=== PATIENT | female | born 1995 | race Hispanic/Latino ===

== ENCOUNTER 2020-03-31 13:44 | Emergency (ER) | payer SELFPAY ==
--- OUTSIDE RECORDS SUMMARY | 2020-03-31 13:46 | XMS REPORT | Summary of Care ---
:1995 Author Organization [facility] Address [address] [place] [address] Care Team Providers Name Role Phone Nell Donaldson [facility] Primary Care Provider Reason for Visit Reason Comments ULTRASOUND (Routine) Status Reason Specialty Diagnoses / Procedures Referred By Adrienne miller To Contact Contact Closed Maternal Diagnoses Hypothyroidism affecting in second trimester History of ventriculoperitoneal shunting Prerna Merino Procedures CONSULT MATERNAL MEDICINE ULTRASOUND Preferred Location: Alice Chisholm [facility] [address] [place] [address] Encounter Details Date Type Department Care Team Description 06/30/2019 Filling Operator Visit [facility] Women's Phan Barrios MD [address] [facility] [id number] [place], [place] [phone] Maternal Healthcare-Morris Kat Nicholas MD [address] [facility] [id number] [place], [place] [id number] hypothyroidism, [facility] Clinics 5, [facility] Usg Room antepartum, second [address] [place] [address] Allergies Active Allergy Reactions Severity Noted Date Comments Morphine Palpitations 08/17/2014 Qdmrpjlqzumbzya-Klfpydiij-Sg Swelling 01/15/2011 Sulfa (Sulfonamide Antibiotics) Rash 1 documented as of this encounter (statuses as of 06/30/2019) Medications Medication Sig Dispensed Refills Start Date End Date Status PNV 67-iron ps-folate Take 1 Each by 30 capsule 11 03/19/2019 Active no.1-dha (VITAFOL ULTRA) mouth daily. 29 mg iron- 1 mg-200 mg CapIndications: Supervision of high risk , antepartum levothyroxine 175 mcg Take 1 tablet 30 tablet 5 06/19/2019 Active tabletIndications: by mouth every Hypothyroidism affecting morning. in second trimester ranitidine 75 mg Take 1 tablet 60 tablet 0 06/23/2019 Active tabletIndications: by mouth 2 Reflux gastritis (two) times daily. 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 Overview: Dx at 2010- treat with synthroid 150 mcg Obstructive hydrocephalus 08/18/2014 Overview: Status post E COMMERCE SPECIALIST shunt placement S/P E COMMERCE SPECIALIST shunt 08/18/2014 Chronic lymphocytic thyroiditis 01/15/2011 Pure hypercholesterolemia 01/15/2011 Acquired acanthosis nigricans 01/15/2011 Estimated Date of Delivery Comments Yes 11/13/2019 Based on last menstr ual period of 02/06/2019 (Approximate) documented as of this encounter (statuses as of 06/30/2019) Resolved Problems Problem Noted Date Resolved Date with inconclusive viability, single or 11/1903/19/2019 unspecified fetus Obesity affecting in first trimester 11/10/2018 03/19/2019 Primary stabbing headache 01/25/2017 11/10/2018 care and examination of lactating mother 11/15/20 16 11/10/2018 Elevated blood pressure reading without diagnosis of 016 03/19/2019 hypertension Second degree perineal laceration 11/15/20162017 39 weeks gestation of 10/25/2016 11/15/20 16 Asthma affecting , antepartum 09/02/2016 1 01/16/2016 Overview: Mild on albuterol inhaler prn Trauma left toe, initial encounter 09/02/201611/15 Nervous system disease complicating in second 06/0111/15/2016 trimester Hypothyroidism affecting 06/20/201611/15 Obesity, Class I, BMI 30-34.9 08/17/2014 11/10/2018 Hypothyroidism 01/16/2011 08/18/2014 Overview: ICD10 Diagnosis Term Alterations Sewer Utility documented as of this encounter (statuses as of 06/30/2019) Immunizations Name Administration Dates Next Due Influenza Virus Vaccine Quad IM 3+ YRS 09/23/2016 documented as of this encounter Social History Tobacco Use Types Packs/Day Years Used Date Never Smoker Smokeless Tobacco: Never Used Alcohol Use Drinks/Week oz/Week Comments No 0 Standard drinks or equivalent 0.0 Estimated Date of Delivery Comments Yes 11/13/2019 Based on last menstr ual period of 02/06/2019 (Approximate) Sex Assigned at Date Recorded Not on file Job Start Date Occupation Industry Not on file Not on file Not on file Travel History Travel Start Travel End No recent travel history available. documented as of this encounter Last Filed Vital Signs Not on filedocumented in this encounter Plan of Treatment Date Type Specialty Care Team Description 07/15/2019 Routine Visit OB Satellites Risk, Ang-Rmchp-N p/High Health Maintenance Due Date Last Done Comments MENINGOCOCCAL B VACCINES (1 of 2007 2 - Risk Bexsero 2-dose series) HPV VACCINES (1 - Female 2012 3-dose series) DTaP,Tdap,and Td Vaccines (1 - 2016 Tdap) INFLUENZA VACCINE 08/01/2019 09/23/2016 CHLAMYDIA SCREENING 03/19/2020 03/19/2019, 11/10/2018, 03/27/2016 PAP SMEAR 11/10/2021 11/10/2018 MENINGOCOCCAL VACCINE Aged Out No longer eligible based on patient's age to complete this to pic PNEUMOCOCCAL 0-64 YEARS Aged Out No longe r eligible based COMBINED SERIES on patient's age to complete this to pic documented as of this encounter Results Not on filedocumented in this encounter Visit Diagnoses Diagnosis Maternal hypothyroidism, antepartum, sec ond trimester documented in this encounter Insurance Payer Benefit Plan / Subscriber ID Effective Phone Address T ype Group [facility] xxxxxxxxx 2019-[place]mi [address] Medic aid HEALTH CHOICE - HE[place] nt [id number] 1 MANAGED MEDICAID [place], [place]ID [phone] documented as of this encounter Advance Directives Type Date Recorded Patient Director Talent Explanati on Advance Directives and Living Will Power of Filing Clerk Name Relationship Healthcare Agent Communication Relationship Troy Ling Spouse Primary healthcare agent Marcy Carrillo Mother First [facility] healthcare 9 [phone] agent (Mobile)
--- OUTSIDE RECORDS SUMMARY | 2020-03-31 13:46 | XMS REPORT | Summary of Care ---
:1995 Author Name Nancy Trevino R.N. Address Unavailable Unavailable , Care Team Providers Name Role Phone GISELLE BANKS M.D. Unavailable Unavailable Nancy Trevino R.N. Unavailable Unavailable Giselle Banks MD Unavailable Unavailable NOT IN DICTIONARY Unavailable Unavailable RODRIGUEZ BURCIAGA MD Unavailable Unavailable Unavailable Unavailable Unavailable Functional Status Name Dates Details Functional status health issues are not documented Status: Name Dates Details Cognitive status health issues are not documented Status: Problems Name Dates Details Hypothyroidism (244.9, E03.9) Status: Ac tive state (V24.2, Z39.2) Status: Active Obesity (278.00, E66.9) Status: Active High risk for diabetes mellitus (V49.89, Z91.89) Status: Active Medications Name Dates Details Levothyroxine Sodium 100 MCG Oral Tablet TAKE 1 TABLET BY MOUTH DAILY DIRECTED . Quantity: 30 Refills: 0 GISELLE BANKS M.D. Start : 09-Jul-2018 Active Allergies and Adverse Reactions Name Dates Details morphine (Allergy) Status: Active sulfa (Allergy) Status: Active Past Medical History Name Dates Details History of asthma (V12.69, Z87.09) Statu s: Resolved Procedures Procedure Dates Details Procedures not documented Immunization Name Dates Details Immunizations not documented Family History Name Dates Details Family history of Calcium kidney stones (592.0, N20.0) Comments: Other Status: Active Name Dates Details Family history of malignant neoplasm (V16.9, Z80.9) Status: Active Name Dates Details Family history of hyperthyroidism (V18.19, Z83.49) Status: Active Family history of essential hypertension (V17.49, Z82.49) Status: Active Family history of lung cancer (V16.1, Z80.1) Status: Active Name Dates Details Family history of hypothyroidism (V18.19, Z83.49) Status: Active Name Dates Details Family history of type 2 diabetes mellitus (V18.0, Z83.3) Status: Active Name Dates Details Family history of type 2 diabetes mellitus (V18.0, Z83.3) Status: Active Name Dates Details Family history of type 2 diabetes mellitus (V18.0, Z83.3) Status: Active Family history of myocardial infarction (V17.3, Z82.49) Status: Active Social History Name Dates Details Unknown if ever smoked Vital Signs Date Test Result Details No Known Vitals to report Results Date Description Value Details Results not documented Plan of Care Name Dates Details Planned Observations Planned Goals not documented Planned Encounters Appointment; GISELLE BANKS M.D. On: 09-Mar-2019 15:4 0 Interventions Provided Discussion/SummaryGuideline Used: [facility] who suggested a higher dosage of levothyroxine due to recent lab work. PT requesting Dr. Banks to send RX. PT has not seen Dr. Banks since 2016. Informed PT that appointment will be needed in order to receive new RX. PT states she has no insurance, inquiring how much self-pay visit would cost. Transferred patient to APPT line. Intended Caller Action: Other: Speak with clinic staff Additional Information: Warm Transfer to [facility] Instructions Name Dates Details Instructions not documented Encounters Appointment; GISELLE BANKS M.D. On: 03-Mar-2017 15:0 0 Encounter Diagnosis: Problem not documented Appointment; GISELLE BANKS M.D. On: 14-Apr-2017 8:3 0 Encounter Diagnosis: Problem not documented Appointment; GISELLE BANKS M.D. On: 22-Jul-2018 13: 40 Encounter Diagnosis: Problem not documented
--- OUTSIDE RECORDS SUMMARY | 2020-03-31 13:47 | XMS REPORT | Summary of Care ---
:1995 Author Organization [facility] Address [address] [place] [address] Care Team Providers Name Role Phone Nell Donaldson [facility] Primary Care Provider Encounter Details Date Type Department Care Team Description 07/08/2019 Abstract [facility] Yesenia Lockhart, [address] [place] [address] [address] [facility] [phone] [place], [place] [address] [phone] Allergies Active Allergy Reactions Severity Noted Date Comments Morphine Palpitations 08/17/2014 Wnwhijuuneozwbz-Snxarfhwm-Ag Swelling 01/15/2011 Sulfa (Sulfonamide Antibiotics) Rash 1 documented as of this encounter (statuses as of 07/08/2019) Medications Medication Sig Dispensed Refills Start Date [...] as of this encounter (statuses as of 07/08/2019) Active Problems Problem Noted Date Hypothyroidism affecting [...] mcg Obstructive hydrocephalus 08/18/2014 Overview: Status post DOOR HANGER shunt placement S/P DOOR HANGER shunt 08/18/2014 Chronic lymphocytic thyroiditis 01/15/2011 Pure hypercholesterolemia 01/15/2011 Acquired acanthosis nigricans 01/15/2011 Estimated Date of Delivery Comments Yes 11/13/2019 Based on last menstr ual period of 02/06/2019 (Approximate) documented as of this encounter (statuses as of 07/08/2019) Resolved Problems Problem Noted Date Resolved Date [...] Hypothyroidism 01/16/2011 08/18/2014 Overview: ICD10 Diagnosis Term Crucible Packer Utility documented as of this encounter (statuses as of 07/08/2019) Immunizations Name Administration Dates Next Due Influenza [...] Description 07/15/2019 Routine Visit OB Satellites Risk, Pca-Azhyn-Qc/Hig h 08/11/2019 Physical Anthropologist Visit Maternal Medicine Health Maintenance Due Date Last Done Comments [...] Results Not on filedocumented in this encounter Insurance Payer Benefit Plan / Subscriber ID Effective Phone Address T ype Group Dates [employer] xxxxxxxxx 2019-Prese [address]OX Medic aid HEALTH CHOICE - HEALTH CHOICE nt [id number] 1 MANAGED MEDICAID [place], [place] MEDICAID [phone] documented as of this encounter Advance Directives Type Date Recorded Patient Postie Explanati on Advance Directives and Living Will Power of Sporting Goods Salesperson Name Relationship Healthcare Agent Communication Relationship Troy Ling Spouse Primary healthcare agent Marcy Carrillo Mother First alternate healthcare agent (Mobile)
--- OUTSIDE RECORDS SUMMARY | 2020-03-31 13:47 | XMS REPORT | Summary of Care ---
:1995 Author Organization [facility] Address [address] [place] [address] Care Team Providers Name Role Phone Nell Donaldson [facility] Primary Care Provider Reason for Visit Reason Comments Genetic Visit Maternity Services (Routine) Status Reason Specialty Diagnoses / Referred By Referred To Procedures Contact Contact Closed Pediatric Genetics Diagnoses Hypothyroidism affecting in second trimester Halle Merino Procedures CONSULT GENETICS Phan [address] [address] Encounter Details Date Type Department Care Team Description 06/30/2019 Office Visit [facility] Christina Barrios ypothyroidism, adult Genetics- Josselin Chisholm MD (Primary Dx) [facility] [address] [place] [address] Drive, [address] [place] [phone] Allergies Active Allergy Reactions Severity Noted Date Comments Morphine Palpitations 08/17/2014 Ptxgtgkhpntxldz-Kaquzzfcj-Ns Swelling 01/15/2011 Sulfa (Sulfonamide Antibiotics) Rash 1 documented as of this encounter (statuses as of 07/07/2019) Medications Medication Sig Dispensed Refills Start Date [...] as of this encounter (statuses as of 07/07/2019) Active Problems Problem Noted Date Hypothyroidism affecting [...] mcg Obstructive hydrocephalus 08/18/2014 Overview: Status post JUNIOR AUTOMATION ENGINEER shunt placement S/P JUNIOR AUTOMATION ENGINEER shunt 08/18/2014 Chronic lymphocytic thyroiditis 01/15/2011 Pure hypercholesterolemia 01/15/2011 Acquired acanthosis nigricans 01/15/2011 Estimated Date of Delivery Comments Yes 11/13/2019 Based on last menstr ual period of 02/06/2019 (Approximate) documented as of this encounter (statuses as of 07/07/2019) Resolved Problems Problem Noted Date Resolved Date [...] Hypothyroidism 01/16/2011 08/18/2014 Overview: ICD10 Diagnosis Term Manager Produce Utility documented as of this encounter (statuses as of 07/07/2019) Immunizations Name Administration Dates Next Due Influenza [...] Signs Not on filedocumented in this encounter Progress Notes Sofi Staples - 06/30/2019 8:00 AM CDT INITIAL GENETIC EVALUATION Patient: Carmelina Alicia Patient Number [id number] : 1995 Site/[facility]: [facility] 06/30/2019 Patient Address: [address] [place] [address] Referring Physician: LISA Quintanilla Angleton Present: Christina Barrios MD; Carmelina Alicia Reason for Referral: Maternal hypothyroidism DARLYN: 11/13/2019 Gestational Age: 20 weeks 3 days Language Czech Patient Care Secretary None Risk Assessment Overview: Disease/condition Risks Chromosome abnormality <656 based on maternal age Down syndrome based on first trimester screen Trisomy 18 12/9509 based on first trimester screen Open Neural Tube defects Negative based on MSAFP Background risk for defects 3% based on general population Cystic Fibrosis 12/13,500 based on ethnicity Hemoglobinopathies Increased based on ethnicity Family history See Genetic Counseling Risk Discussion below Exposures See Genetic Counseling Risk Discussion below Patient History: Patient Father of the Name: Carmelina Ling Age (patient age is at delivery) 22 23 Chronic health problems/ defects: Hypothyroid None 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 Genetic Counseling Risk Discussion Summary: ? Maternal Hypothyroidism: Ms. Alicia has hypothyroidism. Abnormal maternal thyroid function is associated with adverse outcomes. Many studies have proved that children born to motherswith hypothyroidism had a significantly risk of impairment in IQ scores, neuropsychological developmental and learning abilities. This risk applies to children born not only of untreated women, but also women with suboptimal supplementation. Additionally, women with hypothyroidism have decreased fertility, increased risk of miscarriage, gestational hypertension, anemia, placental abruption, and hemorrhage. Untreated maternal hypothyroidism can lead to , low weight, and respiratory distress in the . ? Exposure to Levothyroxine: Ms. Rios hypothyroidism is treated with Levothyroxine. Levothyroxine (Holcomb, Levoxine, Levothroid, Synthroid, Levoxyl) is used to treat goiter and thyroid deficiency states. In the Collaborative Project, there was no increased rate of congenital anomalies among 537 infants of women with levothyroxine or thyroid extract exposure during the first four lunar months of or among 1605 infants whose mothers took levothyroxine or thyroid extract at any time during . We emphasized the importance of continuing thyroxine replacement therapy due to the well- defined association between maternal hypothyroidism and impaired and development. ? Family History of Diabetes, Heart Disease and High Cholesterol: Ms. Rios father has high cholesterol and her mother has diabetes. She had a paternal uncle that of a myocardial infarction. Mr. Meier maternal grandmother has diabetes. We explained that diabetes, heart disease, and hypercholesterolemia follow a multifactorial pattern of inheritance. This means that both genes and environmental factors act together to cause diabetes, heart disease, and hypercholesterolemia. Type II diabetes occurs in 1-5% of the general population. Based on the family history, there is likely an increased risk for family members to develop type II diabetes, heart disease, and/or hypercholesterolemia at some time during their lives. The age of onset and severity may be variable. We counseled her that maintaining a good diet, exercising, and avoiding excess weight can help to prevent diabetes, but that any changes to her diet or exercise regimen during should first be reviewed with her doctor. There is no testing available for type II diabetes, heart disease, or hypercholesterolemia predisposition. Plan: Services Scheduled Level II Ultrasound The risks discussed were based on the information provided by the patient including review of the family history (attached), history, and ethnic background. The background risk of 3-5% for defects, mental retardation and genetic disease, many of which cannot be detected or predicted prenatally was given. The options of screening and diagnostic testing including the risks, benefits and limitations were discussed. The patients understanding of the medical issues was assessed by us, including potential barriers to understanding. We provided all necessary teaching. Questions were answered to the satisfaction of the patient, who demonstrated comprehension of the problem and our suggestions for management. Thank you for the opportunity to assist in the care of your patient, Christina Barrios MD Professor of Pediatrics and Genetics [facility] Rough Copy: July 02, 2019 Final Copy: July 02, 2019 Cc: Medical Records, Genetic Chart Counseling Time: I spent 80 minutes with the patient and greater than 50% of the time was spent assessing family history, counseling the patient, and coordinating medical care. I, Sofi Staples , am transcribing the hand written note from, Dr. Christina Barrios, who performed the services described here-in. Sofi Staples, July 02, 2019, 10:36 AM IChristina MD, personally performed the services described in this documentation , as transcribed by, Sofi Staples, based on my hand written note. I have edited and/or revised the note as appropriate, and it is both accurate and complete. Christina Barrios MD July 05, 2019, 10:59 AM documented in this encounter Plan of Treatment Date Type Specialty Care Team Description 07/15/2019 Routine Visit OB Satellites Risk, Xqs-Ofoek-Xe/Hig h 08/11/2019 Cattle Producers Visit Maternal Medicine Health Maintenance Due Date Last Done Comments MENINGOCOCCAL B VACCINES ( of 2007 2 - Risk Bexsero 2-dose [...] filedocumented in this encounter Visit Diagnoses Diagnosis Hypothyroidism, adult - Primary Other specified acquired hypothyroidism documented in this encounter Insurance Payer Benefit Plan / Subscriber ID Effective Phone Address T ype Group [facility] xxxxxxxxx 2019-Prese [address]. BOX Medic aid HEALTH CHOICE - HEALTH CHOICE nt [id number] 1 MANAGED MEDICAID [place], [place] MED[place]ID [phone] documented as of this encounter Advance Directives Type Date Recorded Patient Club Manager Explanati on Advance Directives and Living Will Power of Street Light Inspector Name Relationship Healthcare Agent Communication Relationship Troy Ling Spouse Primary healthcare agent Marcy Carrillo Mother First alternate healthcare agent (Mobile)
--- OUTSIDE RECORDS SUMMARY | 2020-03-31 13:47 | XMS REPORT | Summary of Care ---
:1995 Author Organization [facility] [place] Address [address] [place] [address] Care Team Providers Name Role Phone Ann Lacey Primary Care Provider Reason for Visit Reason Comments Care Encounter Details Date Type Department Care Team Description 07/15/2019 Routine [facility]CHP- David Lacey y Ann [address] [place] [address] Hypothyroidism affecting in se cond trimester (Primary Dx); Visit Abel Burkett-Rmchp-Np/High History of ventriculoperitoneal shunting ; [address] [facility] High risk , antepar mariela; [place], [place] Obesity affecti ng , antepartum [phone] Allergies Active Allergy Reactions Severity Noted Date Comments Morphine Palpitations 08/17/2014 Tjkmtapcothdwnq-Ocfpwofiz-Tj Swelling 01/15/2011 Sulfa (Sulfonamide Antibiotics) Rash 1 documented as of this encounter (statuses as of 07/15/2019) Medications Medication Sig Dispensed Refills Start Date [...] as of this encounter (statuses as of 07/15/2019) Active Problems Problem Noted Date Hypothyroidism affecting [...] mcg Obstructive hydrocephalus 08/18/2014 Overview: Status post FIELD CANE SCALE CLERK shunt placement S/P FIELD CANE SCALE CLERK shunt 08/18/2014 Chronic lymphocytic thyroiditis 01/15/2011 Pure hypercholesterolemia 01/15/2011 Acquired acanthosis nigricans 01/15/2011 Estimated Date of Delivery Comments Yes 11/13/2019 Based on last menstr ual period of 02/06/2019 (Approximate) documented as of this encounter (statuses as of 07/15/2019) Resolved Problems Problem Noted Date Resolved Date [...] Hypothyroidism 01/16/2011 08/18/2014 Overview: ICD10 Diagnosis Term Diesel 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 documented as of this encounter (statuses as of 07/15/2019) Immunizations Name Administration Dates Next Due Influenza [...] of this encounter Last Filed Vital Signs Vital Sign Reading Time Taken Comments Blood Pressure 138/78 07/15/2019 2:45 PM CDT Pulse 95 07/15/2019 2:45 PM CDT Temperature 37 C (98.6 F) 07/15/2019 2:45 PM CDT Respiratory Rate 16 07/15/2019 2:45 PM CDT Oxygen Saturation - - Inhaled Oxygen Concentration - - Weight 109.9 kg (242 lb 4 oz) 07/15/2019 2:45 PM CDT Height 165.1 cm (5' 5") 07/15/2019 2:45 PM CDT Body Mass Index 40.31 07/15/2019 2:45 PM CDT documented in this encounter Progress Notes Mary Carmen Lacey - 07/15/2019 3:00 PM CDT Chief complaint: Chief Complaint Patient presents with Care HPI Carmelina Alicia is a 24 year old HF who is 22w5d with IUP. Her Estimated Date of Delivery: 11/13/19 by LMP. Denies headache,n/v, sob, cp, bleeding,lof and ctxs. Has +FM. Hx of Hypothyroidism and currently on Levothyroxine 175mcg daily. Reports compliance. Histories OB History Para Term AB Living 3 1 1 1 1 SAB TAB Ectopic Multiple Live Births 1 0 1 # Outcome Date GA Lbr Keenan/2nd Weight Sex Delivery Anes PTL Lv 3 Current 2 SAB 11/22/18 8w5d 1 Term 10/26/16 39w1d 8 lb 12.4 oz (3.98 kg) M VAGINAL EPI LOW Comments: Maternal Age: 19; :1; Parity:1 Mother's Blood Type:O pos Baby's Blood Type:O pos, RADHA NA Maternal Serological Test:normal Maternal Group B Strep Screening:negative; Adequate Treatment:not applicable Complications:yes - maternal hx of asthma, hypothyroidism and hydrocephalous s/p FIELD CANE SCALE CLERK shunt Labor Complications:no OAE: Failed both ears; 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 mg Past Medical History: Diagnosis Date Acanthosis nigricans Asthma about 9 yrs old Autoimmune disorder 2002 Hypothyroidism Family history of diabetes mellitus 11/10/2018 Hydrocephalus Hypothyroidism 2017 Thyroid disease FIELD CANE SCALE CLERK (ventriculoperitoneal) shunt status Family History Problem Relation Age of Onset Cancer Maternal Grandfather Cancer Paternal Grandmother Cancer Paternal Grandfather Heart Brother Thyroid Maternal Grandmother Thyroid Other Maternal first cousin Diabetes Father Hypertension Father Hypertension Father Diabetes Mother Family Status Relation Name Status MGFa PGMo PGFa Bro Alive MGMo (Not Specified) OTHER (Not Specified) Fa Alive Fa (Not Specified) Mo Alive Bro Alive Past Surgical History: Procedure Laterality Date CEREBROSPINAL FLUID SHUNT INSERTION 2001 Acute hydrocephalus - done at [facility] Social History Socioeconomic History Marital status: Spouse name: Not on file Number of children: Not on file Years of education: Not on file Highest education level: Not on file Occupational History Not on file Social Needs Financial resource strain: Not on file Food insecurity: Worry: Not on file Inability: Not on file Transportation needs: Medical: Not on file Non-medical: Not on file Tobacco Use Smoking status: Never Smoker Smokeless tobacco: Never Used Substance and Sexual Activity Alcohol use: No Alcohol/week: 0.0 oz Drug use: No Sexual activity: Yes Partners: Male control/protection: None Comment: last sexual iintercourse 03/16/2019 Lifestyle Physical activity: Days per week: Not on file Minutes per session: Not on file Stress: Not on file Relationships Social connections: Talks on phone: Not on file Gets together: Not on file Attends advent service: Not on file Active member of club or organization: Not on file Attends meetings of clubs or organizations: Not on file Relationship status: Not on file Intimate partner violence: Fear of current or ex partner: Not on file Emotionally abused: Not on file Physically abused: Not on file Forced sexual activity: Not on file Other Topics Concern Not on file Social History Narrative Patient lives with and child. Patient denies any cats. Patient feels safe at home. Social History Substance and Sexual Activity Sexual Activity Yes Partners: Male control/protection: None Comment: last sexual iintercourse 03/16/2019 Labs Labs are pending. Radiology No new radiology. Allergies Carmelina is allergic to morphine; robitussin allergy-cough [omwvyeitqwpitpz-cvngluahb-ey]; and sulfa (sulfonamide antibiotics). Medications Carmelina has a current medication list which includes the following prescription(s): ranitidine, levothyroxine, and pnv 67-iron ps-folate no.1-dha. Review of Systems See HPI BP 138/78 (BP Location: Right arm, Patient Position: Sitting, BP CUFF SIZE: Adult Medium) | Pulse 95 | Temp 37 C (98.6 F) (Oral) | Resp 16 | Ht 5' 5" (1.651 m) | Wt 242 lb 4 oz (109.9 kg) | LMP 02/06/2019 (Approximate) | BMI 40.31 kg/m Pregravid BMI: 38.3 Physical Exam CONSTITUTIONAL: no apparent distress, appearing age-appropriate. GASTROINTESTINAL: abdomen soft, nontender, . NEUROLOGICAL/PSYCHIATRIC: alert, awake, and oriented x 3. Normal mood and affect. EXTREMITIES: No calf tenderness bilaterally.no pitting edema bilaterally. Musculoskeletal: no clubbing, cyanosis or edema, peripheral pulses 2+ in all extremities Assessment/Plan at 22w5d Hypothyroidism affecting in second trimester (primary encounter diagnosis) Comment: on Levothyroxine 175mcg daily Plan: THYROID STIMULATING HORMONE, FREE T3, FREE T4 F/u growth q4wks History of ventriculoperitoneal shunting Comment: denies s/s Plan: exp mtmg High risk , antepartum Comment: 22w5d NT,AFP neg Plan: routine care Obesity affecting , antepartum Comment: twg goal discussed Plan: monitor weight gain Warnings and poc discussed RTC 3wk Mary Carmen Lacey, [facility]- #[id number] This visit did not involve counseling and coordination that comprised more than 50% of the visit time. documented in this encounter Plan of Treatment Date Type Specialty Care Team Description 08/11/2019 Shipping And Receiving Weigher Visit Maternal Medicine Name Type Priority Associated Diagnoses Date/Ti me THYROID STIMULATING LAB Routine Hypothyroidism affect ing 07/15/2019 2:47 PM HORMONE in second CDT trimester FREE T3 LAB Routine Hypothyroidism affecting 2:47 PM in second CDT trimester FREE T4 LAB Routine Hypothyroidism affecting 2:47 PM in second CDT trimester Health Maintenance Due Date Last Done Comments MENINGOCOCCAL B VACCINES (1 of 2007 2 - Risk Bexsero 2-dose series) HPV VACCINES (1 - Female 2012 3-dose series) DTaP,Tdap,and Td Vaccines (1 - 2016 Tdap) INFLUENZA VACCINE (#1) 2019 09/23/2016 CHLAMYDIA SCREENING 03/19/2020 03/19/2019, 11/10/2018, 03/27/2016 PAP SMEAR 11/10/2021 11/10/2018 MENINGOCOCCAL VACCINE Aged Out No longer eligible based on patient's age to complete this to pic PNEUMOCOCCAL 0-64 YEARS Aged Out No longe r eligible based COMBINED SERIES on patient's age to complete this to pic documented as of this encounter Results Not on filedocumented in this encounter Visit Diagnoses Diagnosis Hypothyroidism affecting in se cond trimester - Primary History of ventriculoperitoneal shunting High risk , antepartum Obesity affecting , antepartum documented in this encounter Insurance Payer Benefit Plan / Subscriber ID Effective Phone Address T ype Group [facility] xxxxxxxxx 2019-Prese P.O. BOX Medic aid HEALTH CHOICE - HEALTH CHOICE nt [id number] 1 MANAGED MEDICAID [place], [place]ID [phone] documented as of this encounter Advance Directives Type Date Recorded Patient Business Analytics Manager Explanati on Advance Directives and Living Will Power of Certified Orthotist Name Relationship Healthcare Agent Communication Relationship Troy Ling Spouse Primary healthcare agent Marcy Carrillo Mother First alternate healthcare 9 [phone] agent (Mobile)
--- OUTSIDE RECORDS SUMMARY | 2020-03-31 13:47 | XMS REPORT | Summary of Care ---
:1995 Author Organization [facility] Address [address] [place] [address] Care Team Providers Name Role Phone Nell Donaldson [facility] Primary Care Provider Reason for Visit Reason Comments Genetic Visit Maternity Services (Routine) Status Reason Specialty Diagnoses / Referred By Referred To Procedures Contact Contact Closed Pediatric Genetics Diagnoses Hypothyroidism affecting in second trimester Halle Merino Procedures CONSULT GENETICS Phan [address] [address] Encounter Details Date Type Department Care Team Description 06/30/2019 Office Visit [facility] Pediatric Christina Barrios ypothyroidism, adult Genetics- Josselin Chisholm MD (Primary Dx) [facility] Clinics [address] [place] [address] Drive, 3[address] [place] [phone] Allergies Active Allergy Reactions Severity Noted Date Comments Morphine Palpitations 08/17/2014 Ftjobbdfyaycyew-Drohhcldb-Rg Swelling 01/15/2011 Sulfa (Sulfonamide Antibiotics) Rash 1 [...] mcg Obstructive hydrocephalus 08/18/2014 Overview: Status post ACETONE BUTTON PASTER shunt placement S/P ACETONE BUTTON PASTER shunt 08/18/2014 Chronic lymphocytic thyroiditis 01/15/2011 Pure [...] Hypothyroidism 01/16/2011 08/18/2014 Overview: ICD10 Diagnosis Term Lockstitch Waistband Setter Utility documented as of this encounter (statuses [...] GENETIC EVALUATION Patient: Carmelina Alicia Patient Number [id number] : 1995 Site/[place]: [facility] 06/30/2019 Patient Address: [address] [place] [address] Referring Physician: LISA Quintanilla Angleton Present: Christina Barrios MD; Carmelina Alicia Reason for Referral: Maternal hypothyroidism DARLYN: 11/13/2019 Gestational Age: 20 weeks 3 days Language Bulgarian Slubber Runner None Risk Assessment Overview: Disease/condition Risks Chromosome [...] health problems/ defects: Hypothyroid None 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 Levothyroxine ([place], Levoxine, Levothroid, Synthroid, Levoxyl) is used to [...] Barrios MD Professor of Pediatrics and Genetics [facility] Rough Copy: July 02, 2019 Final Copy: [...] Description 07/15/2019 Routine Visit OB Satellites Risk, Hni-Hhwrb-Pv/Hig h 08/11/2019 Adult Education Instructor Visit Maternal Medicine Health Maintenance Due Date [...] ID Effective Phone Address T ype Group [facility] xxxxxxxxx 2019-Prese P.O. BOX Medic aid HEALTH CHOICE - HEALTH CHOICE nt [id number] 1 MANAGED MEDICAID [place], [place] MED[place]ID [phone] documented as of this encounter Advance Directives Type Date Recorded Patient Marketing Account Executive Explanati on Advance Directives and Living Will Power of Court Manager Name Relationship Healthcare Agent Communication Relationship Troy Ling Spouse Primary healthcare agent Marcy Carrillo Mother First alternate healthcare agent (Mobile)
--- OUTSIDE RECORDS SUMMARY | 2020-03-31 13:48 | XMS REPORT | Summary of Care ---
:1995 Author Organization [facility] Address [address] [place] [address] Care Team Providers Name Role Phone Ann Lacey Primary Care Provider Reason for Visit Reason Comments Care Encounter Details Date Type Department Care Team Description 07/15/2019 Routine [facility] RMCHP- David Lacey y Ann [address] [place] [address] Hypothyroidism affecting in se cond trimester (Primary Dx); Visit Abel Burkett-Rmchp-Np/High History of ventriculoperitoneal shunting ; [address] [facility] High risk , antepar mariela; [place], [place] Obesity affecti ng , antepartum [phone] Allergies Active Allergy Reactions Severity Noted Date Comments Morphine Palpitations 08/17/2014 Fwuanruugiedhve-Qtimkbxbk-Jm Swelling 01/15/2011 Sulfa (Sulfonamide Antibiotics) Rash 1 [...] mcg Obstructive hydrocephalus 08/18/2014 Overview: Status post SHOE CEMENTER shunt placement S/P SHOE CEMENTER shunt 08/18/2014 Chronic lymphocytic thyroiditis 01/15/2011 Pure [...] Hypothyroidism 01/16/2011 08/18/2014 Overview: ICD10 Diagnosis Term Yard Hostler Utility documented as of this encounter (statuses [...] hx of asthma, hypothyroidism and hydrocephalous s/p SHOE CEMENTER shunt Labor Complications:no OAE: Failed both ears; 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 mg Past Medical History: Diagnosis Date Acanthosis nigricans Asthma about 9 yrs old Autoimmune disorder 2002 Hypothyroidism Family history of diabetes mellitus 11/10/2018 Hydrocephalus Hypothyroidism 2017 Thyroid disease SHOE CEMENTER (ventriculoperitoneal) shunt status Family History Problem Relation [...] INSERTION 2001 Acute hydrocephalus - done at [facility] Social History Socioeconomic History Marital status: [...] file Gets together: Not on file Attends christianity service: Not on file Active member of [...] Carmelina is allergic to morphine; robitussin allergy-cough [ieuzqqqcinfybku-fzsfqfwzq-ve]; and sulfa (sulfonamide antibiotics). Medications Carmelina has [...] poc discussed RTC 3wk Mary Carmen Lacey, [facility]- #[id number] This visit did not involve counseling and coordination that comprised more than 50% of the visit time. documented in this encounter Plan of Treatment Date Type Specialty Care Team Description 08/05/2019 Routine Visit OB Satellites Abel WatkinsDwm-Qgpvn-Nr/Hig h 08/11/2019 School Guard Visit Maternal Medicine Name Type Priority Associated [...] ID Effective Phone Address T ype Group [facility] xxxxxxxxx 2019-Prese P.O. BOX Medic aid HEALTH CHOICE - HEALTH CHOICE nt [phone] 1 MANAGED MEDICAID [place], [place] [phone] documented as of this encounter Advance Directives Type Date Recorded Patient Ramp Attendant Explanati on Advance Directives and Living Will Power of Data Entry Email Processor Name Relationship Healthcare Agent Communication Relationship Troy Ling Spouse Primary healthcare agent Marcy Carrillo Mother First [facility] healthcare 9 [phone] agent (Mobile)
--- OUTSIDE RECORDS SUMMARY | 2020-03-31 13:48 | XMS REPORT | Summary of Care ---
:1995 Author Organization [facility] Address [address] [place] [address] Care Team Providers Name Role Phone Ann Lacey Primary Care Provider Reason for Visit Reason Comments Abdominal Pain 25 wks Encounter Details Date Type Department Care Team Description 07/29/2019 Nurse Triage [facility] Tong Smith RN Abdominal Pain ([address] wks pregnan t) [place] [phone] Allergies Active Allergy Reactions Severity Noted Date Comments Morphine Palpitations 08/17/2014 Wureoaqmhkfviut-Gyqbyctww-Kn Swelling 01/15/2011 Sulfa (Sulfonamide Antibiotics) Rash 1 documented as of this encounter (statuses as of 07/30/2019) Medications Medication Sig Dispensed Refills Start Date [...] as of this encounter (statuses as of 07/30/2019) Active Problems Problem Noted Date Hypothyroidism affecting [...] mcg Obstructive hydrocephalus 08/18/2014 Overview: Status post RETAIL ASSOCIATE shunt placement S/P RETAIL ASSOCIATE shunt 08/18/2014 Chronic lymphocytic thyroiditis 01/15/2011 Pure hypercholesterolemia 01/15/2011 Acquired acanthosis nigricans 01/15/2011 Estimated Date of Delivery Comments Yes 11/13/2019 Based on last menstr ual period of 02/06/2019 (Approximate) documented as of this encounter (statuses as of 07/30/2019) Resolved Problems Problem Noted Date Resolved Date [...] Hypothyroidism 01/16/2011 08/18/2014 Overview: ICD10 Diagnosis Term Camera Systems Engineer Utility documented as of this encounter (statuses as of 07/30/2019) Immunizations Name Administration Dates Next Due Influenza [...] Team Description 08/05/2019 Routine Visit OB Satellites Risk, Gdu-Lhudm-Mn/Hig h 08/11/2019 Dairy Chemist Visit Maternal Medicine Health Maintenance Due Date [...] aid HEALTH CHOICE - HEALTH CHOICE nt [id number] 1 MANAGED MEDICAID [place], [place] MEDICAID [phone] documented as of this encounter Advance Directives Type Date Recorded Patient Volcanologist Explanati on Advance Directives and Living Will Power of Clinical Support Nurse Name Relationship Healthcare Agent Communication Relationship Troy Ling Spouse Primary healthcare agent Marcy Carrillo Mother First alternate healthcare agent (Mobile) ([place])
--- OUTSIDE RECORDS SUMMARY | 2020-03-31 13:48 | XMS REPORT | Summary of Care ---
:1995 Author Organization [facility] Address [address] [place] [address] Care Team Providers Name Role Phone Ann Lacey Primary Care Provider Reason for Visit Reason Comments Rx Concern/Question Encounter Details Date Type Department Care Team Description 08/03[facility]2019 [facility]-Np/High [address] [place] [phone] Allergies Active Allergy Reactions Severity Noted Date Comments Morphine Palpitations 08/17/2014 Tfieejjydxrkhya-Wfancydcv-Kf Swelling 01/15/2011 Sulfa (Sulfonamide Antibiotics) Rash 1 documented as of this encounter (statuses as of 08/03/2019) Medications Medication Sig Dispensed Refills Start Date [...] as of this encounter (statuses as of 08/03/2019) Active Problems Problem Noted Date Hypothyroidism affecting [...] mcg Obstructive hydrocephalus 08/18/2014 Overview: Status post WAX BALL MOLDER shunt placement S/P WAX BALL MOLDER shunt 08/18/2014 Chronic lymphocytic thyroiditis 01/15/2011 Pure hypercholesterolemia 01/15/2011 Acquired acanthosis nigricans 01/15/2011 Estimated Date of Delivery Comments Yes 11/13/2019 Based on last menstr ual period of 02/06/2019 (Approximate) documented as of this encounter (statuses as of 08/03/2019) Resolved Problems Problem Noted Date Resolved Date [...] Hypothyroidism 01/16/2011 08/18/2014 Overview: ICD10 Diagnosis Term Marine 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 xxxxxxxxx 2019-Prese P.O. BOX Medic aid HEALTH CHOICE - HEALTH CHOICE nt [id number] 1 MANAGED MEDICAID [place], [place] [phone] documented as of this encounter Advance Directives Type Date Recorded Patient Emt Dispatcher Explanati on Advance Directives and Living Will Power of Assembler For Puller Over Machine Name Relationship Healthcare Agent Communication Relationship Troy Ling Spouse Primary healthcare agent Marcy Gerardo Mother First alternate healthcare agent (Mobile)
--- OUTSIDE RECORDS SUMMARY | 2020-03-31 13:48 | XMS REPORT | Summary of Care ---
:1995 Author Organization [facility] [[email or web address] - [facility] Address [address] [place] [address] Care Team Providers Name Role Phone Ann Lacey Primary Care Provider Encounter Details Date Type Department Care Team Description 07/15/2019 Orders Only [facility] [[email or web address]] Doctor Unassigned, No [address] [facility] [place] [address] [address] [place] [address] Allergies Active Allergy Reactions Severity Noted Date Comments Morphine Palpitations 08/17/2014 Bkirkdztjniidst-Rrdqvrcde-Fw Swelling 01/15/2011 Sulfa (Sulfonamide Antibiotics) Rash 1 documented as of this encounter (statuses as of 07/16/2019) Medications Medication Sig Dispensed Refills Start Date [...] as of this encounter (statuses as of 07/16/2019) Active Problems Problem Noted Date Hypothyroidism affecting [...] 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 Overview: Dx at 2011- treat with synthroid 150 mcg Obstructive hydrocephalus 08/18/2014 Overview: Status post REMITTANCE CLERK shunt placement S/P REMITTANCE CLERK shunt 08/18/2014 Chronic lymphocytic thyroiditis 01/15/2011 Pure hypercholesterolemia 01/15/2011 Acquired acanthosis nigricans 01/15/2011 Estimated Date of Delivery Comments Yes 11/13/2019 Based on last menstr ual period of 02/06/2019 (Approximate) documented as of this encounter (statuses as of 07/16/2019) Resolved Problems Problem Noted Date Resolved Date [...] Hypothyroidism 01/16/2011 08/18/2014 Overview: ICD10 Diagnosis Term Glove Turner And Former Utility documented as of this encounter (statuses as of 07/16/2019) Immunizations Name Administration Dates Next Due Influenza [...] Description 08/05/2019 Routine Visit OB Satellites Risk, Pif-Fosxn-Gd/Hig h 08/11/2019 Beam Warper Visit Maternal Medicine Health Maintenance Due Date [...] to pic documented as of this encounter Procedures Procedure Name Priority Date/Time Associated Diagnosis Comme nts PATIENT QUESTIONNAIRE Routine 07/15/2019 12:01 AM CDT documented in this encounter Results Not on filedocumented in this encounter Insurance Payer Benefit Plan / Subscriber ID Effective Phone Address T e Group Dates [facility] xxxxxxxxx 2019-Prese P.O. BOX Medic aid HEALTH CHOICE - HEALTH CHOICE nt [id number] 1 MANAGED MEDICAID [place], [place] MED[place]ID [phone] documented as of this encounter Advance Directives Type Date Recorded Patient Dairy Specialist Explanati on Advance Directives and Living Will Power of Meat Lugger Name Relationship Healthcare Agent Communication Relationship Troy Ling Spouse Primary healthcare agent Marcy Carrillo Mother First alternate healthcare agent (Kfvzxo) ([place])
--- OUTSIDE RECORDS SUMMARY | 2020-03-31 13:48 | XMS REPORT | Summary of Care ---
:1997 Author Organization [facility] Address [address] [place] [address] Care Team Providers Name Role Phone Ann Lacey Primary Care Provider Reason for Visit Reason Comments Overdose Levothyroxine Encounter Details Date Type Department Care Team Description 07/17/2019 Nurse Triage [facility] Mira Perez, Overdose [address] [place] [address] RN (Levothyroxine ) [place] [address] [place] [address] [facility] [id number] [place] [id number] Allergies Active Allergy Reactions Severity Noted Date Comments Morphine Palpitations 08/17/2014 Lkesmygvbdxpoyg-Dsdrdnrlg-Nq Swelling 01/15/2011 Sulfa (Sulfonamide Antibiotics) Rash 1 documented as of this encounter (statuses as of 07/17/2019) Medications Medication Sig Dispensed Refills Start Date [...] as of this encounter (statuses as of 07/17/2019) Active Problems Problem Noted Date Hypothyroidism affecting [...] mcg Obstructive hydrocephalus 08/18/2014 Overview: Status post EXTRACT MIXER shunt placement S/P EXTRACT MIXER shunt 08/18/2014 Chronic lymphocytic thyroiditis 01/15/2011 Pure hypercholesterolemia 01/15/2011 Acquired acanthosis nigricans 01/15/2011 Estimated Date of Delivery Comments Yes 11/13/2019 Based on last menstr ual period of 02/06/2019 (Approximate) documented as of this encounter (statuses as of 07/17/2019) Resolved Problems Problem Noted Date Resolved Date [...] Hypothyroidism 01/16/2011 08/18/2014 Overview: ICD10 Diagnosis Term Service Unit Operator Oil Well Utility documented as of this encounter (statuses as of 07/17/2019) Immunizations Name Administration Dates Next Due Influenza [...] Description 08/05/2019 Routine Visit OB Satellites Risk, Fch-Znyzx-Mn/Hig h 08/11/2019 Stamping Die Maker Bench Visit Maternal Medicine Health Maintenance Due Date [...] aid HEALTH CHOICE - [place] nt [id number] 1 MANAGED MEDICAID [place], [place] [phone] documented as of this encounter Advance Directives Type Date Recorded Patient Glue Jointer Feeder Explanati on Advance Directives and Living Will Power of Absorption Plant Operator Name Relationship Healthcare Agent Communication Relationship Troy Ling Spouse Primary healthcare agent Marcy Carrillo Mother First alternate healthcare agent ([place]) ([employer])
--- OUTSIDE RECORDS SUMMARY | 2020-03-31 13:48 | XMS REPORT | Summary of Care ---
:1995 Author Organization [facility] Address [address] [place] [address] Care Team Providers Name Role Phone Ann Lacey Primary Care Provider Reason for Visit Reason Comments Care Encounter Details Date Type Department Care Team Description 07/15/2019 Routine [facility]- David Lacey y Ann [address] [place] [address] Hypothyroidism affecting in se cond trimester (Primary Dx); Visit Abel Burkett-Rmchp-Np/High History of ventriculoperitoneal shunting ; [address] [facility] High risk , antepar mariela; [place], [place] Obesity affecti ng , antepartum [id number] Allergies Active Allergy Reactions Severity Noted Date Comments Morphine Palpitations 08/17/2014 Qmgknmxzbesowez-Dlpvejzjg-Vw Swelling 01/15/2011 Sulfa (Sulfonamide Antibiotics) Rash 1 [...] mcg Obstructive hydrocephalus 08/18/2014 Overview: Status post PROCESS ENGINEERING INTERN shunt placement S/P PROCESS ENGINEERING INTERN shunt 08/18/2014 Chronic lymphocytic thyroiditis 01/15/2011 Pure [...] Hypothyroidism 01/16/2011 08/18/2014 Overview: ICD10 Diagnosis Term Nuclear Medical Technologist Utility documented as of this encounter (statuses [...] hx of asthma, hypothyroidism and hydrocephalous s/p PROCESS ENGINEERING INTERN shunt Labor Complications:no OAE: Failed both ears; 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 mg Past Medical History: Diagnosis Date Acanthosis nigricans Asthma about 9 yrs old Autoimmune disorder 2002 Hypothyroidism Family history of diabetes mellitus 11/10/2018 Hydrocephalus Hypothyroidism 2017 Thyroid disease PROCESS ENGINEERING INTERN (ventriculoperitoneal) shunt status Family History Problem Relation [...] INSERTION 2001 Acute hydrocephalus - done at [facility] Social History Socioeconomic History Marital status: [...] file Gets together: Not on file Attends islam service: Not on file Active member of [...] Carmelina is allergic to morphine; robitussin allergy-cough [blhjxqwvlyjdrbt-tluxoiidx-jm]; and sulfa (sulfonamide antibiotics). Medications Carmelina has [...] poc discussed RTC 3wk Mary Carmen Lacey, [id number] This visit did not involve counseling and coordination that comprised more than 50% of the visit time. documented in this encounter Plan of Treatment Date Type Specialty Care Team Description 08/05/2019 Routine Visit OB Satellites Abel WatkinsAhe-Cvpag-Km/Hig h 08/11/2019 Bowling Or Skating Front Desk Clerk Visit Maternal Medicine Name Type Priority Associated [...] ID Effective Phone Address T ype Group [facility] xxxxxxxxx 2019-Prese P.O. BOX Medic aid HEALTH CHOICE - HEALTH CHOICE nt [id number] 1 MANAGED MEDICAID [place], [place] [phone] documented as of this encounter Advance Directives Type Date Recorded Patient Banquet Line Cook Explanati on Advance Directives and Living Will Power of Executive Office Manager Name Relationship Healthcare Agent Communication Relationship Troy Ling Spouse Primary healthcare agent Marcy Carrillo Mother First [facility] healthcare agent (Mobile)
--- OUTSIDE RECORDS SUMMARY | 2020-03-31 13:49 | XMS REPORT | Summary of Care ---
:1997 Author Organization [facility] Address [address] [place] [address] Care Team Providers Name Role Phone Ann Lacey Primary Care Provider Encounter Details Date Type Department Care Team Description 08/20/2019 Orders Only [facility] Doctor Unassigned, [address] [facility] [place] [address] [address] [place] [address] Allergies Active Allergy Reactions Severity Noted Date Comments Morphine Palpitations 08/17/2014 Msfolwjdikruzzo-Ojuuoabun-Ch Swelling 01/15/2011 Sulfa (Sulfonamide Antibiotics) Rash 1 documented as of this encounter (statuses as of 08/20/2019) Medications Medication Sig Dispensed Refills Start Date [...] as of this encounter (statuses as of 08/20/2019) Active Problems Problem Noted Date Hypothyroidism affecting [...] mcg Obstructive hydrocephalus 08/18/2014 Overview: Status post RESISTANCE BRAZER shunt placement S/P RESISTANCE BRAZER shunt 08/18/2014 Chronic lymphocytic thyroiditis 01/15/2011 Pure hypercholesterolemia 01/15/2011 Acquired acanthosis nigricans 01/15/2011 Estimated Date of Delivery Comments Yes 11/13/2019 Based on last menstr ual period of 02/06/2019 (Approximate) documented as of this encounter (statuses as of 08/20/2019) Resolved Problems Problem Noted Date Resolved Date [...] Hypothyroidism 01/16/2011 08/18/2014 Overview: ICD10 Diagnosis Term Echocardiography Technologist Utility documented as of this encounter (statuses as of 08/20/2019) Immunizations Name Administration Dates Next Due Influenza [...] Treatment Date Type Specialty Care Team Description 08/26/2019 Routine Visit OB Satellites Risk, Ang-Rmchp-N p/High [...] Name Priority Date/Time Associated Diagnosis Comme nts CONSENT/REFUSAL FOR Routine 08/20/2019 1:32 AM CDT DIAGNOSIS AND TREATMENT documented in this encounter Results Not on filedocumented in this encounter Insurance Payer Benefit Plan / Subscriber ID Effective Phone Address T ype Group Dates [facility] xxxxxxxxx 2019-Prese P.O. BOX Medic aid HEALTH CHOICE - HEALTH CHOICE nt [id number] 1 MANAGED MEDICAID [place], [place]ID [phone] documented as of this encounter Advance Directives Type Date Recorded Patient Risk Management Internship Explanati on Advance Directives and Living Will Power of Brick Setter Name Relationship Healthcare Agent Communication Relationship Troy Ling Spouse Primary healthcare agent Marcy Carrillo Mother First alternate healthcare agent (Mobile)
--- OUTSIDE RECORDS SUMMARY | 2020-03-31 13:49 | XMS REPORT | Summary of Care ---
:1997 Author Organization [facility] Address [address] [place] [address] Care Team Providers Name Role Phone Ann Lacey Primary Care Provider Encounter Details Date Type Department Care Team Description 08/13/2019 Abstract [facility] Yesenia Lockhart C, [address] [place] [address] [address] [facility] [phone] [place], [place] [address] [phone] Allergies Active Allergy Reactions Severity Noted Date Comments Morphine Palpitations 08/17/2014 Athhakfyirhnbxg-Natkianoj-Wy Swelling 01/15/2011 Sulfa (Sulfonamide Antibiotics) Rash 1 documented as of this encounter (statuses as of 08/13/2019) Medications Medication Sig Dispensed Refills Start Date [...] as of this encounter (statuses as of 08/13/2019) Active Problems Problem Noted Date Hypothyroidism affecting [...] mcg Obstructive hydrocephalus 08/18/2014 Overview: Status post HAND STAPLER shunt placement S/P HAND STAPLER shunt 08/18/2014 Chronic lymphocytic thyroiditis 01/15/2011 Pure hypercholesterolemia 01/15/2011 Acquired acanthosis nigricans 01/15/2011 Estimated Date of Delivery Comments Yes 11/13/2019 Based on last menstr ual period of 02/06/2019 (Approximate) documented as of this encounter (statuses as of 08/13/2019) Resolved Problems Problem Noted Date Resolved Date [...] Hypothyroidism 01/16/2011 08/18/2014 Overview: ICD10 Diagnosis Term Promotion Specialist Utility documented as of this encounter (statuses as of 08/13/2019) Immunizations Name Administration Dates Next Due Influenza [...] Effective Phone Address T ype Group Dates [facility] xxxxxxxxx 2019-Prese P.O. BOX Medic aid HEALTH CHOICE - HEALTH CHOICE nt [id number] 1 MANAGED MEDICAID [place], [place]ID [phone] documented as of this encounter Advance Directives Type Date Recorded Patient Pilot Can Router Explanati on Advance Directives and Living Will Power of Plaster Applicator Name Relationship Healthcare Agent Communication Relationship Troy Ling Spouse Primary healthcare agent Marcy Carrillo Mother First alternate healthcare [phone] agent (Mobile) ([place])
--- OUTSIDE RECORDS SUMMARY | 2020-03-31 13:49 | XMS REPORT | Summary of Care ---
:[address] [facility] Address [address] [place] [address] Care Team Providers Name Role Phone Ann Lacey Primary Care Provider Reason for Visit Reason Comments Refill Request Encounter Details Date Type Department Care Team Description 08/04/2019 Refill [facility]- A Kat Stevenson, Refill Request [address] [place] [address] [address] [facility] [address] [place], [place] [address] Allergies Active Allergy Reactions Severity Noted Date Comments Morphine Palpitations 08/17/2014 Ctjreqiuldwpqxc-Bkwpjbcxr-Fz Swelling 01/15/2011 Sulfa (Sulfonamide Antibiotics) Rash 1 documented as of this encounter (statuses as of 08/04/2019) Medications Medication Sig Dispensed Refills Start Date [...] as of this encounter (statuses as of 08/04/2019) Active Problems Problem Noted Date Hypothyroidism affecting [...] mcg Obstructive hydrocephalus 08/18/2014 Overview: Status post GENERATOR TECHNICIAN shunt placement S/P GENERATOR TECHNICIAN shunt 08/18/2014 Chronic lymphocytic thyroiditis 01/15/2011 Pure hypercholesterolemia 01/15/2011 Acquired acanthosis nigricans 01/15/2011 Estimated Date of Delivery Comments Yes 11/13/2019 Based on last menstr ual period of 02/06/2019 (Approximate) documented as of this encounter (statuses as of 08/04/2019) Resolved Problems Problem Noted Date Resolved Date [...] Hypothyroidism 01/16/2011 08/18/2014 Overview: ICD10 Diagnosis Term Platform Attendant Utility documented as of this encounter (statuses as of 08/04/2019) Immunizations Name Administration Dates Next Due Influenza [...] Description 08/05/2019 Routine Visit OB Satellites Risk, Key-Zgkjr-Qi/Hig h 08/11/2019 Dental Office Receptionist Visit Maternal Medicine Health Maintenance Due Date [...] filedocumented in this encounter Visit Diagnoses Diagnosis Hypothyroid in , antepartum, fi rst trimester documented in this encounter Insurance Payer Benefit Plan / Subscriber ID Effective Phone Address T ype Group Dates [facility] xxxxxxxxx 2019-Prese P.O. BOX Medic aid HEALTH CHOICE - HEALTH CHOICE nt [id number] 1 MANAGED MEDICAID [place], [place]ID [phone] documented as of this encounter Advance Directives Type Date Recorded Patient Deployment Engineer Explanati on Advance Directives and Living Will Power of Painter Spray Name Relationship Healthcare Agent Communication Relationship Troy Ling Spouse Primary healthcare agent Marcy Carrillo Mother First [facility] agent (Mobile)
--- OUTSIDE RECORDS SUMMARY | 2020-03-31 13:49 | XMS REPORT | Summary of Care ---
:1997 Author Organization [facility] Address [address] [place] [address] Care Team Providers Name Role Phone LaceyAnn duenas Primary Care Provider Reason for Visit Reason Comments ULTRASOUND (Routine) Status Reason Specialty Diagnoses / Procedures Referred By Adrienne miller To Contact Contact Closed Maternal Diagnoses Hypothyroidism affecting in second trimester History of ventriculoperitoneal shunting Prerna Merino Procedures CONSULT MATERNAL MEDICINE ULTRASOUND Preferred Location: [facility] [address] [address] Encounter Details Date Type Department Care Team Description 08/11/2019 Strawhat [address] [facility], Hy pothyroidism Ultrasound- MD complicating [address] , second [address] [place], [place] [phone] Allergies Active Allergy Reactions Severity Noted Date Comments Morphine Palpitations 08/17/2014 Zapxsbenrvuudin-Puqensxpv-Wd Swelling 01/15/2011 Sulfa (Sulfonamide Antibiotics) Rash 1 documented as of this encounter (statuses as of 08/11/2019) Medications Medication Sig Dispensed Refills Start Date [...] as of this encounter (statuses as of 08/11/2019) Active Problems Problem Noted Date Hypothyroidism affecting [...] mcg Obstructive hydrocephalus 08/18/2014 Overview: Status post CARDIOLOGY TECH shunt placement S/P CARDIOLOGY TECH shunt 08/18/2014 Chronic lymphocytic thyroiditis 01/15/2011 Pure hypercholesterolemia 01/15/2011 Acquired acanthosis nigricans 01/15/2011 Estimated Date of Delivery Comments Yes 11/13/2019 Based on last menstr ual period of 02/06/2019 (Approximate) documented as of this encounter (statuses as of 08/11/2019) Resolved Problems Problem Noted Date Resolved Date [...] Hypothyroidism 01/16/2011 08/18/2014 Overview: ICD10 Diagnosis Term Spiritual Minister Utility documented as of this encounter (statuses as of 08/11/2019) Immunizations Name Administration Dates Next Due Influenza [...] in this encounter Visit Diagnoses Diagnosis Hypothyroidism complicating , s econd trimester documented in this encounter Insurance Payer Benefit Plan / Subscriber ID Effective Phone Address T e Group [facility] xxxxxxxxx 2019-Delmi [address] BOX Medic aid HEALTH CHOICE - HEALTH CHOICE nt [id number] 1 MANAGED MEDICAID [place], [place] [phone] documented as of this encounter Advance Directives Type Date Recorded Patient Embedded Systems Software Engineer Explanati on Advance Directives and Living Will Power of Film Printer Name Relationship Healthcare Agent Communication Relationship Troy Ling Spouse Primary healthcare agent Marcy Carrillo Mother First alternate healthcare agent (Mobile)
--- OUTSIDE RECORDS SUMMARY | 2020-03-31 13:49 | XMS REPORT | Summary of Care ---
:1997 Author Organization [facility] Address [address] [place] [address] Care Team Providers Name Role Phone LaceyAnn duenas Primary Care Provider Reason for Visit Reason Comments ULTRASOUND (Routine) Status Reason Specialty Diagnoses / Procedures Referred By Adrienne miller To Contact Contact Closed Maternal Diagnoses Hypothyroidism affecting in second trimester History of ventriculoperitoneal shunting Prerna Merino Procedures CONSULT MATERNAL MEDICINE ULTRASOUND Preferred Location: [facility] [address] [address] Encounter Details Date Type Department Care Team Description 08/11/2019 Goat [facility], Hy pothyroidism Ultrasound- MD complicating [address] , [address] [place], [place] [phone] Allergies Active Allergy Reactions Severity Noted Date Comments Morphine Palpitations 08/17/2014 Udyvgvhnpxmgkcv-Hygtqewim-Fh Swelling 01/15/2011 Sulfa (Sulfonamide Antibiotics) Rash 1 [...] mcg Obstructive hydrocephalus 08/18/2014 Overview: Status post RATTLE LEAK AND SQUEAK REPAIRER shunt placement S/P RATTLE LEAK AND SQUEAK REPAIRER shunt 08/18/2014 Chronic lymphocytic thyroiditis 01/15/2011 Pure [...] Hypothyroidism 01/16/2011 08/18/2014 Overview: ICD10 Diagnosis Term Taxi Servicer Utility documented as of this encounter (statuses [...] ID Effective Phone Address T e Group [facility] xxxxxxxxx 2019-Delmi [place] BOX Medic aid HEALTH CHOICE - HEALTH CHOICE nt [id number] 1 MANAGED MEDICAID [place], [place] [phone] documented as of this encounter Advance Directives Type Date Recorded Patient Spine Supervisor Explanati on Advance Directives and Living Will Power of Fiber Product Cutting Machine Operator Name Relationship Healthcare Agent Communication Relationship Troy Ling Spouse Primary healthcare agent Marcy Carrillo Mother First alternate healthcare agent (Mobile)
--- OUTSIDE RECORDS SUMMARY | 2020-03-31 13:50 | XMS REPORT | Summary of Care ---
:1995 Author Organization [facility] Address [address] [place] [address] Care Team Providers Name Role Phone Pcp, Does Not Have A Primary Care Provider Reason for Visit Reason Comments Thyroid Problem new visit Encounter Details Date Type Department Care Team Description 03/20/2020 Telemedicine Visit [facility] Lisa Miguel Endocrinology- MD Stefania hypothyroidism [address] (Primary Dx) [address] [address] [address] Hern[address]dez [address] [place], [place] [phone] [address] (Fax) [phone] Allergies Active Allergy Reactions Severity Noted Date Comments Morphine Palpitations 08/17/2014 Brompheniramine-Pseudoep Swelling 01/15/2011 h-Dm Sulfa (Sulfonamide Rash 01/15/2011 Antibiotics) Ketorolac Tromethamine Other - See comments 09/06/2019 States worsened headache "made my whole head go on fire" documented as of this encounter (statuses as of 03/20/2020) Medications Medication Sig Dispensed Refills Start Date End Date Status PNV 67-iron Take 1 Each 30 capsule 11 03/19/2019 Acti ve ps-folate no.1-dha by mouth (VITAFOL ULTRA) 29 daily. mg iron- 1 mg-200 mg CapIndications: Supervision of high risk , antepartum Iron, Cbn & Take 1 tablet 30 tablet 3 09/23/2019 Act guy Cggq-CJ-V15-C-DSS by mouth (FERRALET 90 daily. DUAL-IRON DELIVERY) 90-1-12-50 bw-lm-hgi-mg per tabletIndications: Hypothyroidism affecting in third trimester acetaminophen 325 mg Take 2 90 tablet 0 11/07/2019 11/06/20 2 Active tabletIndications: tablets by 0 (spontaneous mouth every 6 vaginal delivery) (six) hours as needed for Pain (scale 1-3). azithromycin Take 1 tablet 6 tablet 0 12/03/2019 Ac tive (ZITHROMAX Z-SILVIANO) by mouth 250 mg daily. Take tabletIndications: 500 mg day 1, Streptococcal sore then 250 mg throat days 2 to 5. levothyroxine 175 Take 1 tablet 90 tablet 1 03/20/2020 Active mcg by mouth tabletIndications: every Acquired morning. hypothyroidism levothyroxine 200 Take 1 tablet 30 tablet 3 09/23/2019 Discontinued mcg by mouth 0 tabletIndications: every Hypothyroidism morning. affecting in third trimester levothyroxine 50 mcg Take 1 tablet 30 tablet 3 10/07/201903/02 Discontinued tabletIndications: by mouth 0 Hypothyroidism every affecting morning. in third trimester documented as of this encounter (statuses as of 03/20/2020) Active Problems Problem Noted Date Morbid obesity with body mass index of 40.0-49.9 08/20 History of ventriculoperitoneal shunting 11/10/2018 Family history of diabetes mellitus 11/10/2018 Drug allergy, multiple 05/06/2016 Overview: Morphine- slow HR and low BP Sulfa- oral blister and swelling tongue 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 Overview: Dx at 2010- treat with synthroid 150 mcg Obstructive hydrocephalus 08/18/2014 Overview: Status post GENERAL MATCHER shunt placement Chronic lymphocytic thyroiditis 01/15/2011 documented as of this encounter (statuses as of 03/20/2020) Resolved Problems Problem Noted Date Resolved Date (spontaneous vaginal delivery) 11/06/201911/30 Single liveborn 11/06/2019 11/30/2019 38 weeks gestation of 11/05/2019 11/30/20 19 Oligohydramnios 11/05/2019 11/30/2019 Hypothyroidism affecting in third trimester 201811/30/2019 High risk , antepartum 06/17/2019 11/30/20 19 Supervision of high-risk 03/19/201911/30 with inconclusive viability, single or 11/1903/19/2019 unspecified fetus Obesity affecting in first trimester 11/10/2018 03/19/2019 Hypothyroidism affecting 11/10/201810/25 Overview: Labs q4 weeks Primary stabbing headache 01/25/2017 11/10/2018 care and examination of lactating mother 11/15/20 16 11/10/2018 Elevated blood pressure reading without diagnosis of 016 03/19/2019 hypertension Second degree perineal laceration 11/15/20162017 39 weeks gestation of 10/25/2016 11/15/20 Asthma affecting , antepartum 09/02/2016 1 01/16/2016 Overview: Mild on albuterol inhaler prn Trauma left toe, initial encounter 09/02/201611/15 Nervous system disease complicating in second 06/0111/15/2016 trimester Hypothyroidism affecting 06/20/201611/15 Obesity, Class I, BMI 30-34.9 08/17/2014 11/10/2018 Hypothyroidism 01/16/2011 08/18/2014 Overview: ICD10 Diagnosis Term Handle Rounder Operator Utility Acquired acanthosis nigricans 01/15/2011 10/25/2019 documented as of this encounter (statuses as of 03/20/2020) Immunizations Name Administration Dates Next Due Influenza Virus Vaccine Quad .5 mL IM 6+ MO 08/26/2019 Influenza Virus Vaccine Quad IM 3+ YRS 09/23/2016 TDAP (ADACEL) VACCINE 08/26/2019 documented as of this encounter Social History Tobacco Use Types Packs/Day Years Used Date Never Smoker Smokeless Tobacco: Never Used Alcohol Use Drinks/Week oz/Week Comments No 0 Standard drinks or equivalent 0.0 Sex Assigned at Date Recorded Not on file Job Start Date Occupation Industry Not on file Not on file Not on file Travel History Travel Start Travel End No recent travel history available. documented as of this encounter Last Filed Vital Signs Not on filedocumented in this encounter Progress Notes Stefania Miguel MD - 03/20/2020 1:00 PM CDT Endocrinology, Diabetes and Metabolism Outpatient Note TELEHEALTH NOTE Verbal consent obtained from Patient: Carmelina Alicia due to the COVID-19 pandemic for telehealth services provided below. Communication with patient was conducted via Telephone due to patient unable to obtain video call option. Location of Patient: Home Location of Provider: Clinic Date of Service: 03/20/2020 Chief Complaint: Thyroid Problem (new visit) HPI Carmelina Alicia is a 24 year old female evaluated for hypothyroidism new patient visit Hypothyroidism: diagnosed with hypothyroidism at age 15 years. She was on levothyroxine since the time of diagnosis. Family history of thyroid disorder: maternal family has thyroid disorder History of radiation exposure: no Patient states that her thyroid levels were off during her recent . Her LT4 dose was increased up to 200 during her . She delivered baby 4 months ago. She has been on the same dose ofLT4 200 mcg up till 3 weeks ago. When she ran out she started taking 175 mcg pills that she has at home. She feels fine at this time. States that she has not felt different with lower dose of levothyroxine. Her LT4 dosing is confusing she seems to be on 100 mcg prior to . She was gradually increased to 200 during due to elevated TSH. Last TFTs are wnl in 10/2019 Denies heat or cold intolerance. Denies weight changes. Denies low energy level or fatigue. Denies change in bowel habits. Denies skin, hair or nail changes. Denies palpitations or tremors. Denies anterior neck pain or swelling. Denies change in voice. Denied difficulty breathing or swallowing. menstrual cycles-- stable and regular, started this past month Current treatment: levothyroxine 175 mcg daily. Takes around 7 am. Does not take any other medications at the same time. Waits 30 min before eating. She was supposed to be on 200 mcg. Reports good compliance. Interfering medications: Biotin - no; calcium - no; iron - no; PPI - no; H2 davon - no PAST MEDICAL HISTORY Past Medical History: Diagnosis Date Acanthosis nigricans Asthma about 9 yrs old Autoimmune disorder 2002 Hypothyroidism Family history of diabetes mellitus 11/10/2018 Hydrocephalus Hypothyroidism 2017 Thyroid disease GENERAL MATCHER (ventriculoperitoneal) shunt status Past Surgical History: Procedure Laterality Date CEREBROSPINAL FLUID SHUNT INSERTION 2001 Acute hydrocephalus - done at [facility] Family History Problem Relation Age of Onset Cancer Maternal Grandfather Cancer Paternal Grandmother Cancer Paternal Grandfather Heart Brother Thyroid Maternal Grandmother Thyroid Other Maternal first cousin Diabetes Father Hypertension Father Hypertension Father Diabetes Mother Social History Tobacco Use Smoking status: Never Smoker Smokeless tobacco: Never Used Substance Use Topics Alcohol use: No Alcohol/week: 0.0 standard drinks Drug use: No ALLERGIES Morphine; Robitussin allergy-cough [qmlobslkuhopvwy-usgyucuhe-mf]; Sulfa (sulfonamide antibiotics); and Toradol [ketorolac tromethamine] MEDICATIONS Current Outpatient Medications Medication Sig Dispense Refill levothyroxine 175 mcg tablet Take 1 tablet by mouth every morning. 90 tablet 1 azithromycin (ZITHROMAX Z-SILVIANO) 250 mg tablet Take 1 tablet by mouth daily. Take 500 mg day 1, then 250 mg days 2 to 5. 6 tablet 0 acetaminophen 325 mg tablet Take 2 tablets by mouth every 6 (six) hours as needed for Pain (scale 1-3). 90 tablet 0 Iron, Cbn & Dinl-EG-G68-C-DSS (FERRALET 90 DUAL-IRON DELIVERY) 90-1-12-50 kz-bl-gog-mg per tablet Take 1 tablet by mouth daily. 30 tablet 3 PNV 67-iron ps-folate no.1-dha (VITAFOL ULTRA) 29 mg iron- 1 mg-200 mg Cap Take 1 Each by mouth daily. 30 capsule 11 No current facility-administered medications for this visit. REVIEW OF SYSTEMS - Positives are marked with bold letters. Negatives are not bold. Constitutional: fatigue, confusion, changes in mental status Skin: lesions, rashes, sores, discoloration. Eyes: double vision, blurring, tearing, loss of vision Cardiovascular: palpitations, chest pain, claudication. Respiratory: dyspnea, [place], Cough. Gastrointestinal: nausea, vomiting, diarrhea, constipation, abdominal pain. Genitourinary: bladder incontinence, dysuria, hematuria. Musculoskeletal: myalgias, joint pain, decreased range of motion. Neurological: dizziness, tingling, neuropathic pain, headaches. Endocrine: heat or cold intolerance, polyphagia, polydipsia, polyuria, nocturia. Psychiatric: mood changes, depression All other systems negative. TELEHEALTH EXAM Patient appears alert and oriented. Breathing unlabored. Answered all the questions appropriately. Data: Lab Results Component Value Date TSH 1.24 10/25/2019 FREET4 1.29 10/25/2019 Lab Results Component Value Date CHOL 181 07/14/2012 HDL 35 (L) 07/14/2012 LDL 116 07/14/2012 TRIG 148 07/14/2012 Lab Results Component Value Date NA 138 10/01/2019 K 3.9 10/01/2019 CL 105 10/01/2019 BUN 8 10/01/2019 CREAT 0.43 (L) 10/01/2019 ALKPHOS 131 (H) 09/06/2019 ALT 99 (H) 09/09/2019 AST 54 (H) 09/09/2019 Assessment: ICD-10-CM ICD-9-CM 1. Acquired hypothyroidism E03.9 244.9 Plan Hypothyroidism -TFTs: Recent Labs 07/15/19 1447 09/09/19 1440 10/01/19 2241 10/25/19 1611 TSH 4.77* 10.30* 6.28* 1.24 FREET4 0.90 0.77* -- 1.29 - Clinically euthyroid per discussion on phone. Check TFTs in 4-6 weeks since she has been on current dose of LT4 175 mcg only for 3 weeks. - Currently on Levothyroxine 175 mcg. Plan: -Continue current dose of 175 mcg daily for now. Will titrate if needed after TFTs have resulted. - Advised to take 1 hours prior to 1st meal of the day. - For maximal absorption, this medicine should be taken at least 4 hours before or 4 hours after these medicines: antacids (Maalox, Mylanta, Tums), calcium supplements, iron supplements, cholestyramine (Prevalite, Questran), colestipol (Colestid), iron supplements, orlistat (Maurilio, Xenical), simethicone (Gas-X, Mylicon), and sucralfate (Carafate). -Counseled patient that if she were to change OCPS , stop OCPS or become to notify office to monitor TFT's. After visit summary (AVS ) documentation will be available through [employer] for this encounter. A total of 30 minutes was spent on the Telephone due to patient unable to obtain video call option. Stefania Miguel MD Oracle Distribution Consultant Endocrinology, Diabetes and Metabolism documented in this encounter Plan of Treatment Name Type Priority Associated Diagnoses Order S chedule FREE T4 LAB Routine Acquired hypothyroidism Expe cted: 03/20/2020, Expires: 2020 THYROID PEROXIDASE (TPO) AB LAB Routine Acquired hyp othyroidism Expected: 03/20/2020, Expires: 2020 THYROID STIMULATING HORMONE LAB Routine Acquired hypo thyroidism Expected: 03/20/2020, Expires: 2020 TRIIODOTHYRONINE LAB Routine Acquired hypothyroidism Expected: 03/20/2020, Expires: 2020 Health Maintenance Due Date Last Done Comments HPV VACCINES (1 - Female 09/13/2020 Postpon ed from 2-dose series) 2008 (Preg nant or ) MENINGOCOCCAL B VACCINES (1 09/22/2020 Post poned from of 2 - Risk Bexsero 2-dose 06/10 ( or series) ) CHLAMYDIA SCREENING 10/25/2020 10/25/2019, 03/19/2019, 11/10/2018, Additional history exists PAP SMEAR 11/10/2021 11/10/2018 DTaP,Tdap,and Td Vaccines 08/26/2029 08/26/2019 (2 - Td) INFLUENZA VACCINE Completed 08/26/2019, 09/23/2016 MENINGOCOCCAL VACCINE Aged Out No longer eligible based on patient 's age to complete this topic PNEUMOCOCCAL 0-64 YEARS Aged Out No longe r eligible COMBINED SERIES based on patient 's age to complete this topic documented as of this encounter Implants Implanted Type Area Associate Buyer Device Identifier Shelf Exp iration Model / Serial Date / Lot Shunt SHUNT documented as of this encounter Results Not on filedocumented in this encounter Visit Diagnoses Diagnosis Acquired hypothyroidism - Primary Unspecified hypothyroidism documented in this encounter Advance Directives Type Date Recorded Patient Scrap Hooker Explanati on Advance Directives and Living Will Power of Jukebox Checker Name Relationship Healthcare Agent Communication Relationship Troy Ling Spouse Primary healthcare agent Marcy Sandoval Mother First alternate [phone] Gerardo healthcare agent (Mobile) [email or web address]
--- OUTSIDE RECORDS SUMMARY | 2020-03-31 13:50 | XMS REPORT | Summary of Care ---
:1995 Author Organization [facility] Address [address] [place] [address] Care Team Providers Name Role Phone Pcp, Does Not Have A Primary Care Provider Reason for Visit Reason Comments Appointment Encounter Details Date Type Department Care Team Description 03/20/2020 Telephone [facility] Endocrinology- Pcp, Patient D oes Not Appointment [facility] [address] [place] [address] [address] [place] [address] [facility] [phone] Allergies Active Allergy Reactions Severity Noted Date Comments Morphine Palpitations 08/17/2014 Brompheniramine-Pseudoep Swelling 01/15/2011 h-Dm Sulfa (Sulfonamide Rash 01/15/2011 Antibiotics) Ketorolac Tromethamine Other - See comments 09/06/2019 States worsened headache "made my whole head go on fire" documented as of this encounter (statuses as of 03/21/2020) Medications Medication Sig Dispensed Refills Start Date End Date Status PNV 67-iron ps-folate Take 1 Each by 30 capsule 11 03/19/2019 Active no.1-dha (VITAFOL mouth daily. ULTRA) 29 mg iron- 1 mg-200 mg CapIndications: Supervision of high risk , antepartum Iron, Cbn & Take 1 tablet 30 tablet 3 09/23/2019 Act guy Htcl-GD-O51-C-DSS by mouth daily. (FERRALET 90 DUAL-IRON DELIVERY) 90-1-12-50 uf-pm-haf-mg per tabletIndications: Hypothyroidism affecting in third trimester acetaminophen 325 mg Take 2 tablets 90 tablet 0 11/07/201905/2020 Active tabletIndications: by mouth every (spontaneous vaginal 6 (six) hours delivery) as needed for Pain (scale 1-3). azithromycin Take 1 tablet 6 tablet 0 12/03/2019 Ac tive (ZITHROMAX Z-SILVIANO) 250 by mouth daily. mg tabletIndications: Take 500 mg day Streptococcal sore 1, then 250 mg throat days 2 to 5. levothyroxine 175 mcg Take 1 tablet 90 tablet 1 03/20/2020 Active tabletIndications: by mouth every Acquired morning. hypothyroidism documented as of this encounter (statuses as of 03/21/2020) Active Problems Problem Noted Date Morbid obesity with body mass index of 40.0-49.9 08/20 History of ventriculoperitoneal shunting 11/10/2018 Family history of diabetes mellitus 11/10/2018 Drug allergy, multiple 05/06/2016 Overview: Morphine- slow HR and low BP Sulfa- oral blister and swelling tongue 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 Overview: Dx at 2010- treat with synthroid 150 mcg Obstructive hydrocephalus 08/18/2014 Overview: Status post STEM TEACHER shunt placement Chronic lymphocytic thyroiditis 01/15/2011 documented as of this encounter (statuses as of 03/21/2020) Resolved Problems Problem Noted Date Resolved Date [...] Hypothyroidism 01/16/2011 08/18/2014 Overview: ICD10 Diagnosis Term Hat Band Attacher Utility Acquired acanthosis nigricans 01/15/2011 10/25/2019 documented as of this encounter (statuses as of 03/21/2020) Immunizations Name Administration Dates Next Due Influenza [...] Treatment Date Type Specialty Care Team Description 07/25/2020 Office Visit Endocrinology Diabetes & Claudio Chavez MD Metabolism [address] [place], [place] [id number] Health Maintenance Due Date Last Done Comments [...] of this encounter Implants Implanted Type Area Lease Purchase Truck Driver Device Identifier Shelf Exp iration Model / Serial Date / Lot Shunt SHUNT documented as of this encounter Results Not on filedocumented in this encounter Advance Directives Type Date Recorded Patient Candle Wicker Explanati on Advance Directives and Living Will Power of Tent Finisher Name Relationship Healthcare Agent Communication Relationship Troy Ling Spouse Primary healthcare agent Marcy Sandoval Mother First alternate [phone] Gerardo healthcare agent (Mobile) [email or web address]
--- OUTSIDE RECORDS SUMMARY | 2020-03-31 13:50 | XMS REPORT | Summary of Care ---
:1995 Author Organization [facility] Address [address] [place] [address] Care Team Providers Name Role Phone Ann Lacey Primary Care Provider Reason for Visit Auth/Cert Status Reason Specialty Diagnoses / Procedures Referred By Nell thurman Referred To Contact Obstetrics Diagnoses Abdominal pain [facility] Labor [facility] Delivery [address] [place] [address] [place], [place] [address] Phone: Fax: Encounter Details Date Type Department Care Team Description 08/20/2019 Hospital Encounter [facility] Labor and Delivery Isiah Rutledge MD [address] [place] [address] [address] [place], [place] [address] [phone] Allergies Active Allergy Reactions Severity Noted Date Comments Morphine Palpitations 08/17/2014 Owdjnwnbdyoebkb-Qrqwdxgey-Xl Swelling 01/15/2011 Sulfa (Sulfonamide Antibiotics) Rash 1 [...] mcg Obstructive hydrocephalus 08/18/2014 Overview: Status post PRODUCTION WOOD CRAFTSMAN shunt placement S/P PRODUCTION WOOD CRAFTSMAN shunt 08/18/2014 Chronic lymphocytic thyroiditis 01/15/2011 Pure [...] 11/10/2018 care and examination of lactating mother 11/15/2011/10/2018 Elevated blood pressure reading without diagnosis of [...] Hypothyroidism 01/16/2011 08/18/2014 Overview: ICD10 Diagnosis Term Hub Lead Utility documented as of this encounter (statuses [...] Sign Reading Time Taken Comments Blood Pressure 130/65 08/20/2019 2:16 AM CDT Pulse 89 08/20/2019 3:15 AM CDT Temperature 37.2 C (98.9 F) 08/20/2019 2:16 AM CDT Respiratory Rate 20 08/20/2019 2:16 AM CDT Oxygen Saturation 100% 08/20/2019 2:16 AM CDT Inhaled Oxygen Concentration - - Weight 109.3 kg (241 lb) 08/20/2019 2:16 AM CDT Height 165.1 cm (5' 5") 08/20/2019 2:16 AM CDT Body Mass Index 40.1 08/20/2019 2:16 AM CDT documented in this encounter Discharge Instructions Crystal Brooke RN - 08/20/2019Preterm Labor (36 weeks and before): 1. Drink at least 10-12 glasses of water daily. 2. When resting or sleeping, stay off your back as much as possible. Use pillows for extra support. 3. Be sure to empty your bladder frequently at least every 2 hours. 4. No sexual intercourse or orgasm until checking with your doctor. 5. No tampons or douching until checking with your doctor. 6. Return to Labor and Delivery if you have any of the followin. Tightening of the uterus (contractions) 6 or more per hour. 2. Periodlike cramping. 3. Low back pain. 4. Pelvic pressure or aching thighs. 5. Abdominal cramping with or without diarrhea. 6. Vaginal spotting or bleeding with any of the above symptoms. 7. Leaking of fluid from your vagina. Term Labor (37+ weeks): Return to Labor and Delivery/ Center if: 1. Your contractions become more regular, at least every 5-6 minutes apart for one hour after walking and drinking a large glass of water. 2. Your bag of water starts leaking or you have a gush of water from your vagina. 3. If you are not sure if your water has broken: 1. Go to the bathroom and empty your bladder. 2. Put on a pad. If it is wet within hour, you may be leaking from your bag of water. You should come to the hospital to be checked right away. 3. Note the color and odor of the fluid. 4. Your babys movements have decreased or if your baby is not moving. 5. You have vaginal bleeding as heavy as a period. Decreased Movement: 1. Your baby should move at least 10 times in 2 hrs. 2. Keep a record of your babys movements on the Kick Count sheet provided 3. If you feel your baby is not moving as much as usual, do the followin. Drink a large glass of water. 2. Make sure you have eaten a meal recently. 3. Lie on your left side and count the babys movements. 4. If you do not have at least 10 movements in 2 hours, you should be seen as soon as possible in Labor and Delivery, or call your clinic, whichever is closer. 5. IF YOUR BABYS MOVEMENTS ARE MUCH SLOWER THAN NORMAL, OR ABSENT, AND YOU ARE WORRIED, DO NOT WAIT AN ENTIRE DAY. IT IS BETTER TO BE REASSURED THAN TO FIND A PROBLEM WITH YOUR BABY THAT COULD HAVE BEEN AVOIDED! Urinary Tract Infections: 1. Drink plenty of fluids, at least 10-12 glasses of water daily. 2. Have your prescription filled today. 3. Take all of the medication prescribed, even if you are feeling better. 4. Empty your bladder often at least every 2 hours. 5. Be sure to wipe from front to back after urinating. 6. Call your clinic if: 1. You have a fever of 100.4 F by mouth after taking your temperature twice, 4 hours apart. 2. You see blood in your urine. 3. You are unable to urinate. 4. You have severe pain when you urinate. 7. Avoid alcohol, soft drinks and drinks with caffeine such as teas and coffee during this treatment. Bleedin. It is normal to have some red, pink, or brown spotting after a vaginal exam. 2. [place], light red and brownish spotting is not unusual, especially later in the . 3. However, if heavy bleeding is present: a. Note the amount with the number of pads saturated. b. Note the color of the bleeding. c. Note any pain associated with the bleeding. d. Call Labor and Delivery or your clinic immediately. Fever: 1. Call your clinic if you have a fever of 100.4 F by mouth after taking your temperature twice, 4 hours apart. 2. Do not take any uwvc-xtd-jgapctq medications for an illness unless you have been instructed to doso by your physician or nurse. You should only take medicines on the list of safe medicines given to you at your clinic. Do not take more than the recommended doses. High Blood Pressure: Return to Labor and Delivery if you have: 1. Swelling in your face, puffiness around your eyes, more than slight swelling of your hands, or excessive or sudden swelling of your feet or ankles. 2. Sudden weight gain (more than 4 pounds in a week). 3. Throbbing headaches that wont go away, even after taking ahrf-bmi-neftffw medicines as instructed by your care provider. 4. Changes in vision, including blurry vision, a sensation of flashing lights or spots, or temporaryloss of vision. 5. Severe pain or tenderness in your upper stomach area. This may include nausea and vomiting. 6. documented in this encounter Plan of Treatment [...] Name Priority Date/Time Associated Diagnosis Comme nts ASSIGNMENT OF BENEFITS Routine 08/20/2019 1:33 AM CDT documented in this encounter Results Not on filedocumented in this encounter Insurance Payer Benefit Plan / Subscriber ID Effective Phone Address T ype Group Dates [facility] xxxxxxxxx 2019-Prese [address] Medic aid HEALTH CHOICE - [place] [id number] 1 MANAGED MEDICAID [place], [place] [phone] documented as of this encounter Advance Directives Type Date Recorded Patient Shop Tailor Explanati on Advance Directives and Living Will Power of Electrotyper Name Relationship Healthcare Agent Communication Relationship Troy Ling Spouse Primary healthcare agent Marcy Sandoval Mother First alternate [phone] Gerardo healthcare agent (Mobile) [email or web address]
--- OUTSIDE RECORDS SUMMARY | 2020-03-31 13:51 | XMS REPORT | Summary of Care ---
:1995 Author Organization [facility] - [facility] Address [address] [place] [id number] Care Team Providers Name Role Phone Pcp, Does Not Have A Primary Care Provider Reason for Referral Radiology Services (STAT) Status Reason Specialty Diagnoses / Procedures Referred By Adrienne miller To Contact Contact New Request Diagnostic Diagnoses History of ventriculoperitoneal shunting Reed, Radiology Procedures XR ABDOMEN [address] [place] [id number] Radiology Services (STAT) Status Reason Specialty Diagnoses / Procedures Referred By Adrienne miller To Contact Contact New Request Diagnostic Diagnoses History of ventriculoperitoneal shunting Reed, Radiology Procedures XR SKULL <[address] [place] [address] Radiology Services (STAT) Status Reason Specialty Diagnoses / Procedures Referred By Adrienne miller To Contact Contact New Request Diagnostic Diagnoses History of ventriculoperitoneal shunting Reed, Radiology Procedures XR CHEST [address] [place] [id number] Reason for Visit Reason Comments Headache Vomiting Auth/Cert Status Reason Specialty Diagnoses / Referred By Referred To Procedures Contact Contact Emergency Medicine Diagnoses HEADACHE,VOMITING [facility] Emergency Dept [address] [facility] [place] [address] Fax: Encounter Details Date Type Department Care Team Description 03/30/2020 Emergency ADC-Emergency Austyn Reed DO [address] [facility] [address] [place], [place] [id number] History of ventriculoperitoneal shunting (Primary Dx); Department Harmony Barnard MD [address] [facility] [id number] [place], [place] [id number] Nonintractable headache, unspecified chr onicity pattern, unspecified headache type [address] [facility] [place] [address] Allergies Active Allergy Reactions Severity Noted Date Comments Morphine Palpitations 08/17/2014 Brompheniramine-Pseudoep Swelling 01/15/2011 h-Dm Sulfa (Sulfonamide Rash 01/15/2011 Antibiotics) Ketorolac Tromethamine Other - See comments 09/06/2019 States worsened headache "made my whole head go on fire" documented as of this encounter (statuses as of 03/30/2020) Medications Medication Sig Dispensed Refills Start Date End Date Status PNV 67-iron ps-folate Take 1 Each by 30 capsule 11 03/19/2019 Active no.1-dha (VITAFOL mouth daily. ULTRA) 29 mg iron- 1 mg-200 mg CapIndications: Supervision of high risk , antepartum Iron, Cbn & Take 1 tablet 30 tablet 3 09/23/2019 Act guy [id number] by mouth daily. (FERRALET 90 DUAL-IRON DELIVERY) 90-1-12-50 [id number]-[id number]-mg per tabletIndications: Hypothyroidism affecting in third trimester [...] as of this encounter (statuses as of 03/30/2020) Active Problems Problem Noted Date Morbid obesity with body mass index of 40.0-49.9 08/20 History of ventriculoperitoneal shunting 11/10/2018 Family history of diabetes mellitus 11/10/2018 Drug allergy, multiple 05/06/2016 Overview: Morphine- slow HR and low BP Sulfa- oral blister and swelling tongue 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 Overview: Dx at 2010- treat with synthroid 150 mcg Obstructive hydrocephalus 08/18/2014 Overview: Status post HEALTH INSURANCE SPECIALIST shunt placement Chronic lymphocytic thyroiditis 01/15/2011 documented as of this encounter (statuses as of 03/30/2020) Resolved Problems Problem Noted Date Resolved Date (spontaneous vaginal delivery) 11/06/201911/30 Single liveborn 11/06/2019 11/30/2019 38 weeks gestation of 11/05/2019 11/30/20 19 Oligohydramnios 11/05/2019 11/30/2019 Hypothyroidism affecting in third trimester 201811/30/2019 High risk , antepartum 06/17/2019 11/30/20 Supervision of high-risk 03/19/201911/30 with inconclusive viability, [...] Hypothyroidism 01/16/2011 08/18/2014 Overview: ICD10 Diagnosis Term Supply Room Clerk Utility Acquired acanthosis nigricans 01/15/2011 10/25/2019 documented as of this encounter (statuses as of 03/30/2020) Immunizations Name Administration Dates Next Due Influenza [...] Travel End No recent travel history available. COVID-19 Exposure Response Date Recorded In the last month, have you been in contact with No / Unsure 03/30/2020 5:19 PM CDT someone who was confirmed or suspected to have Coronavirus / COVID-19? documented as of this encounter Last Filed Vital Signs Vital Sign Reading Time Taken Comments Blood Pressure 134/75 03/30/2020 8:00 PM CDT Pulse 78 03/30/2020 8:30 PM CDT Temperature 36.7 C (98 F) 03/30/2020 5:23 PM CDT Respiratory Rate 20 03/30/2020 8:00 PM CDT Oxygen Saturation 98% 03/30/2020 8:30 PM CDT Inhaled Oxygen Concentration - - Weight 103 kg (227 lb) 03/30/2020 5:23 PM CDT Height 165.1 cm (5' 5") 03/30/2020 5:23 PM CDT Body Mass Index 37.77 03/30/2020 5:23 PM CDT documented in this encounter Discharge Instructions Harmony Arzola MD - 03/30/2020 DIAGNOSIS Diagnoses that have been ruled out: None Diagnoses that are still under consideration: None Final diagnoses: History of ventriculoperitoneal shunting Nonintractable headache, unspecified chronicity pattern, unspecified headache type NO LIFE-THREATENING FINDINGS ON TODAY'S EXAM. PROCEDURES IN THE ER TODAY: Orders Placed This Encounter Procedures XR CHEST 1 VW XR SKULL <4 VW XR ABDOMEN 2 VW CBC WITH DIFF COMP. METABOLIC PANEL (61573) URINALYSIS CBC WITH DIFFERENTIAL CORONAVIRUS COVID-19 TESTING MEDICATIONS ADMINISTERED IN THE ER TODAY AND DISCHARGE MEDICATIONS: Orders Placed This Encounter Medications metoclopramide HCl (REGLAN) injection 10 mg diphenhydrAMINE (BENADRYL) injection 25 mg NaCl 0.9% (NS) bolus infusion 1,000 mL HYDROcodone-acetaminophen (NORCO 5) 5-325 mg tablet 1 tablet FOLLOW-UP RECOMMENDATIONS: RECOMMEND FOLLOW-UP WITH YOUR PRIMARY CARE PROVIDER IN 2-5 DAYS, ESPECIALLY IF NO IMPROVEMENT IN SYMPTOMS. YOU SHOULD ALSO SEEK TO ESTABLISH CARE WITH [facility] NEUROSURGERY. CALL TO SCHEDULE THE NEXT AVAILABLE NEUROSURGERY CLINIC APPOINTMENT TO FURTHER MANAGE YOUR HEALTH INSURANCE SPECIALIST SHUNTS MAY FOLLOW-UP WITH A PROVIDER OF YOUR CHOICE, SUCH : 1. A PHYSICIAN OF YOUR CHOICE 2. [facility], . LOCATIONS IN [facility] 3. [facility], [address] [place] [address]; [phone] OR, IF YOU WISH TO FOLLOW-UP WITHIN THE [facility], MAY TRY THESE OPTIONS (CLINIC APPOINTMENTS AVAILABLE ON EDAC-RH-FPXY BASIS): 1. SCHEDULE AN APPOINTMENT ONLINE AT [facility] 2. OR CALL THE [facility] ACCESS CENTER AT OR 3. OR CALL YOUR [facility] PHYSICIAN'S OFFICE DIRECTLY IF YOU ARE ALREADY AN ESTABLISHED [facility] PATIENT. RETURN TO ER FOR WORSENING OF SYMPTOMS AttachmentsThe following attachments cannot be sent through Care Everywhere. Headache, Unspecified (Surinamese)documented in this encounter Plan of Treatment Date Type Specialty Care Team Description 07/25/2020 Office Visit Endocrinology Diabetes & Claudio Chavez MD Metabolism [address] [place] [address] Name Type Priority Associated Diagnoses Order S chedule SHUNT STUDY PULMONARY FUNCTION Routine ONCE for 1 (100%) LAB Occurrences sta rting 03/30/2020 unti l 03/30/2020 Health Maintenance Due Date Last Done Comments [...] of this encounter Implants Implanted Type Area Tax Evaluator Device Identifier Shelf Exp iration Model / Serial Date / Lot Shunt SHUNT documented as of this encounter Procedures Procedure Name Priority Date/Time Associated Diagnosis Comme nts XR SKULL <4 VW STAT 03/30/2020 6:40 History of Results f or PM CDT ventriculoperitoneal this pr ocedure shunting are in the results section. XR CHEST 1 VW STAT 03/30/2020 6:40 History of Results fo r PM CDT ventriculoperitoneal this pr ocedure shunting are in the results section. XR ABDOMEN 2 VW STAT 03/30/2020 6:40 History of Results for PM CDT ventriculoperitoneal this pr ocedure shunting are in the results section. CORONAVIRUS STAT 03/30/2020 6:08 Nonintractable headache, Results for COVID-19 TESTING PM CDT unspecified chronicity t his procedure pattern, unspecified are in the headache type results section. CBC WITH STAT 03/30/2020 6:05 History of Results for DIFFERENTIAL PM CDT ventriculoperitoneal this pr ocedure shunting are in the results section. URINALYSIS STAT 03/30/2020 6:05 History of Results for PM CDT ventriculoperitoneal this pr ocedure shunting are in the results section. CBC WITH STAT 03/30/2020 6:05 History of Results for DIFFERENTIAL PM CDT ventriculoperitoneal this pr ocedure shunting are in the results section. COMP. METABOLIC STAT 03/30/2020 6:05 History of Results for PANEL (91557) PM CDT ventriculoperitoneal this p rocedure shunting are in the results section. documented in this encounter Results XR ABDOMEN 2 VW (03/30/2020 6:40 PM CDT) Specimen Impressions Performed At FINDINGS/IMPRESSION: PACS/VR/DOSE A right parietal approach ventriculoperitoneal shunt c atheter originates in the region of the right occipital horn, traverses the right lateral neck and chest, and enters the peritoneum with the tip term inating in the right hemipelvis. The catheter is in stable po sition from 2017. No kinks or breaks are seen. The lungs are clear. No focal consolidat ions, pleural effusion or pneumothorax. The bowel gas pattern is nonobstructive. No acute osseous abnormalities. Preliminary Report Dictated by Resident: Thomas Goode MD., have reviewed this study and agree with the above report. Narrative Performed At XR ABDOMEN 2 VW PACS/VR/DOSE XR CHEST 1 VW XR SKULL <4 VW HISTORY: shunt eval COMPARISON: 01/24/1970 TECHNIQUE: Frontal radiographs of the ab domen were performed. Procedure Note [facility], Radiant Results Inft User - 2019 6:51 PM CDT XR ABDOMEN 2 VW XR CHEST 1 VW XR SKULL <4 VW HISTORY: shunt eval COMPARISON: 01/24/1970 TECHNIQUE: Frontal radiographs of the ab domen were performed. IMPRESSION FINDINGS/IMPRESSION: A right parietal approach ventriculoperi toneal shunt catheter originates in the region of the right occipital horn, traverses the right lateral neck and chest, and enters the peritoneum wit h the tip terminating in the right hemipelvis. The catheter is in stable po sition from 2017. No kinks or breaks are seen. The lungs are clear. No focal consolidat ions, pleural effusion or pneumothorax. The bowel gas pattern is nonobstructive. No acute osseous abnormalities. Preliminary Report Dictated by Resident: Thomas Goode MD., have reviewed th is study and agree with the above report. Performing Organization Address City/State/Zipcode Phone Number PACS/VR/DOSE XR SKULL <4 VW (03/30/2020 6:40 PM CDT) Specimen Impressions Performed At FINDINGS/IMPRESSION: PACS/VR/DOSE A right parietal approach ventriculoperitoneal shunt c atheter originates in the region of the right occipital horn, traverses the right lateral neck and chest, and enters the peritoneum with the tip term inating in the right hemipelvis. The catheter is in stable po sition from 2017. No kinks or breaks are seen. The lungs are clear. No focal consolidat ions, pleural effusion or pneumothorax. The bowel gas pattern is nonobstructive. No acute osseous abnormalities. Preliminary Report Dictated by Resident: Thomas Goode MD., have reviewed this study and agree with the above report. Narrative Performed At XR ABDOMEN 2 VW PACS/VR/DOSE XR CHEST 1 VW XR SKULL <4 VW HISTORY: shunt eval COMPARISON: 01/24/1970 TECHNIQUE: Frontal radiographs of the ab domen were performed. Procedure Note [facility], Radiant Results Inft User - 2019 6:51 PM CDT XR ABDOMEN 2 VW XR CHEST 1 VW XR SKULL <4 VW HISTORY: shunt eval COMPARISON: 01/24/1970 TECHNIQUE: Frontal radiographs of the ab domen were performed. IMPRESSION FINDINGS/IMPRESSION: A right parietal approach ventriculoperi toneal shunt catheter originates in the region of the right occipital horn, traverses the right lateral neck and chest, and enters the peritoneum wit h the tip terminating in the right hemipelvis. The catheter is in stable po sition from 2017. No kinks or breaks are seen. The lungs are clear. No focal consolidat ions, pleural effusion or pneumothorax. The bowel gas pattern is nonobstructive. No acute osseous abnormalities. Preliminary Report Dictated by Resident: Thomas Goode MD., have reviewed th is study and agree with the above report. Performing Organization Address City/State/Zipcode Phone Number PACS/VR/DOSE XR CHEST 1 VW (03/30/2020 6:40 PM CDT) Specimen Impressions Performed At FINDINGS/IMPRESSION: PACS/VR/DOSE A right parietal approach ventriculoperitoneal shunt c atheter originates in the region of the right occipital horn, traverses the right lateral neck and chest, and enters the peritoneum with the tip term inating in the right hemipelvis. The catheter is in stable po sition from 2017. No kinks or breaks are seen. The lungs are clear. No focal consolidat ions, pleural effusion or pneumothorax. The bowel gas pattern is nonobstructive. No acute osseous abnormalities. Preliminary Report Dictated by Resident: Thomas Goode MD., have reviewed this study and agree with the above report. Narrative Performed At XR ABDOMEN 2 VW PACS/VR/DOSE XR CHEST 1 VW XR SKULL <4 VW HISTORY: shunt eval COMPARISON: 01/24/1970 TECHNIQUE: Frontal radiographs of the ab domen were performed. Procedure Note [facility], Radiant Results Inft User - 2019 6:51 PM CDT XR ABDOMEN 2 VW XR CHEST 1 VW XR SKULL <4 VW HISTORY: shunt eval COMPARISON: 01/24/1970 TECHNIQUE: Frontal radiographs of the ab domen were performed. IMPRESSION FINDINGS/IMPRESSION: A right parietal approach ventriculoperi toneal shunt catheter originates in the region of the right occipital horn, traverses the right lateral neck and chest, and enters the peritoneum wit h the tip terminating in the right hemipelvis. The catheter is in stable po sition from 2017. No kinks or breaks are seen. The lungs are clear. No focal consolidat ions, pleural effusion or pneumothorax. The bowel gas pattern is nonobstructive. No acute osseous abnormalities. Preliminary Report Dictated by Resident: Thomas Goode MD., have reviewed th is study and agree with the above report. Performing Organization Address City/State/[facility] Phone Number PACS/VR/DOSE CORONAVIRUS COVID-19 TESTING (03/30/2020 6:08 PM CDT) Pathologist Sig nature SARS-CoV-2 Not Detected Not Detected [facility] Specimen Swab - NASOPHARYNGEAL SWAB Narrative Performed At ID NOW COVID-19 Assay is an isothermal nucleic [facility] acid amplification test intended for the qualitative detection of nucleic acid from SARS-CoV-2 viral RNA in nasopharyngeal (MEASUREMENT TECHNICIAN) specimens. It is used under Emergency Use Authorization (EUA) by FDA. The limit of detection (LOD) of the assay is 125 Genome Equivalents/mL. A positive result is indicative of the presence of SARS-CoV-2 RNA. Clinical correlation with patient history and other diagnostic information is necessary to determine patient infection status. A negative (Not Detected) result does not preclude SARS-CoV-2 infection. Clinical correlation with patient history and other diagnostic information should be used in patient management decisions. Invalid: Please collect a new specimen for repeat patient testing if clinically indicated. Performing Organization Address City/State/Zipcode Phone Number [facility] CLIA: [id number], [address] [place] [address] CBC WITH DIFFERENTIAL (03/30/2020 6:05 PM CDT) Pathologist [facility] nature WBC 11.33 (H) 4.30 - 11.10 [facility] 10*3/L HOS[facility]ITAL LAB[facility] RBC 5.16 3.93 - 5.25 [facility] 10*6/L [facility] HGB 12.9 11.6 - 15.0 [facility] g/dL [facility] HCT 39.5 35.7 - 45.2 % [facility] MCV 76.6 (L) 80.6 - 95.5 fL [facility] MCH 25.0 (L) 25.9 - 32.8 pg [facility] MCHC 32.7 31.6 - 35.1 [facility] g/dL [facility] RDW-SD 40.8 39.0 - 49.9 fL [facility] RDW-CV 14.9 12.0 - 15.5 % [facility] PLT 390 (H) 166 - 358 [facility] 10*3/L [facility] MPV 10.7 9.5 - 12.9 fL [facility] NRBC/100 WBC 0.0 0.0 - 10.0 /100 [facility] WBCs [facility] NRBC x10^3 <0.01 10*3/L [facility] GRAN MAT (NEUT) % 84.1 % [facility] IMM GRAN % 0.40 % [facility] LYMPH % 11.3 % [facility] MONO % 3.8 % [facility] EOS % 0.1 % [facility] BASO % 0.3 % [facility] GRAN MAT x10^3(ANC) 9.54 (H) 1.88 - 7.09 [facility] 10*3/uL [facility] IMM GRAN x10^3 0.04 0.00 - 0.06 [facility] 10*3/uL HOSPITAL [facility] LYMPH x10^3 1.28 (L) 1.32 - 3.29 [facility] 10*3/uL [facility]ITAL [facility] MONO x10^3 0.43 0.33 - 0.92 [facility] 10*3/uL [facility]ITAL [facility] EOS x10^3 <0.03 (L) 0.03 - 0.39 [facility] 10*3/uL [facility] BASO x10^3 0.03 0.01 - 0.07 [facility] 10*3/uL [facility]OS[facility]ITAL LAB[facility] Specimen Blood - ARM, RIGHT Performing Organization Address [facility] Phone Number [facility] CLIA: [id number], [address] [place], [place] [address] URINALYSIS (03/30/2020 6:05 PM CDT) Pathologist Sig nature APPEARANCE Hazy (A) Clear [facility] COLOR Marisela (A) Yellow [facility] PH 7.0 4.8 - 8.0 [facility] SP GRAVITY 1.031 (H) 1.003 - 1.030 [facility] GLU U QUAL Normal Normal [facility] BLOOD Negative Negative [facility] KETONES Negative Negative [facility] PROTEIN 100 mg/dL (A) Negative [facility] UROBILIN Normal Normal [facility] BILIRUBIN Negative Negative [facility] NITRITE Negative Negative [facility] LEUK ROSENDO Negative Negative [facility] RBC/HPF <1 0 - 3 HPF [facility] WBC/HPF 1 0 - 5 HPF [facility] BACTERIA Few (A) Negative [facility] MUCOUS Marked (A) Negative LPF [facility] SQ EPITH 13 HPF [facility] Specimen Urine - URINE, CLEAN CATCH Performing Organization Address [facility] Phone Number [facility] CLIA: [id number], [address] [place], [place] [address] COMP. METABOLIC PANEL ([id number]) (03/30/2020 6:05 PM CDT) NA 142 135 - 145 [facility] mmol/L HOSPITAL LAB[facility] K 3.7 3.5 - 5.0 [facility] mmol/L [facility] CL 102 98 - 108 mmol/L [facility] CO2 TOTAL 25 23 - 31 mmol/L [facility] AGAP 15 2 - 16 [facility] BUN 9 7 - 23 mg/dL [facility] GLUCOSE 108 70 - 110 mg/dL [facility] CREATININE 0.48 (L) 0.50 - 1.04 [facility] mg/dL [facility] TOTAL BILI 1.0 0.1 - 1.1 mg/dL [facility] CALCIUM 10.3 8.6 - 10.6 [facility] mg/dL [facility] T PROTEIN 9.3 (H) 6.3 - 8.2 g/dL [facility] ALBUMIN 5.3 (H) 3.5 - 5.0 g/dL [facility] ALK PHOS 121 34 - 122 U/L [facility] ALTv 81 (H) 5 - 35 U/L [facility] AST(SGOT) 42 (H) 13 - 40 U/L [facility] eGFR Calculation 161.7 mL/min/1.73m2 [facility] ([facility] LABORATORY Barb[place]) eGFR Calculation 196.0 mL/min/1.73m2 [facility] () [facility] Specimen Blood - ARM, RIGHT Narrative Performed At Association of Glomerular Filtration Rate (GFR) [facility] and Staging of Kidney Disease* + + +- + | GFR (mL/min/1.73 m2) | With Kidney Damage | Without Kidney Damage + + +- + | >90 | Stage one | Normal + + +- + | 60-89 | Stage two | Decreased GFR + + +- + | 30-59 | Stage three | Stage three + + +- + | 15-29 | Stage four | Stage four + + +- + | <15 (or dialysis) | Stage five | Stage five + + +- + *Each stage assumes the associated GFR level has been in effect for at least three months. Stages 1 to 5, with or without kidney disease, indicate chronic kidney disease. Notes: Determination of stages one and two (with eGFR >59mL/min/1.73 m2) requires estimation of kidney damage for at least three months as defined by structural or functional abnormalities of the kidney, manifested by either: Pathological abnormalities or Markers of kidney damage (including abnormalities in the composition of the blood or urine or abnormalities in imaging tests). Performing Organization Address City/State/Zipcode Phone Number [facility] CLIA: [id number], [address] [place], [place] [address] documented in this encounter Visit Diagnoses Diagnosis History of ventriculoperitoneal shunting - Primary Nonintractable headache, unspecified chr onicity pattern, unspecified headache type documented in this encounter Administered Medications Medication Order MAR Action Action Date Dose Rate Site diphenhydrAMINE (BENADRYL) Given 03/30/2020 5:59 PM 25 mg Right Arm injection 25 mg CDT 25 mg, Slow IV Push, ONCE, 1 dose, Winsome 03/30/20 at 1845, STAT HYDROcodone-acetaminophen (NORCO 5) 5-325 Given 2019 8:07 PM CDT 1 tablet mg tablet 1 tablet 1 tablet, Oral, ONCE, 1 dose, Winsome 03/30/20 at 2100, MARVIN metoclopramide HCl (REGLAN) injection Given 03/30/2020 5:59 PM CDT 10 mg Right Arm 10 mg 10 mg, Slow IV Push, ONCE, 1 dose, Winsome 03/30/20 at 1845, MARVIN NaCl 0.9% (NS) bolus New Bag 03/30/2020 6:08 PM CDT 1,000 mL 99 9 mL/hr Right Arm infusion 1,000 mL at 999 mL/hr, 1,000 mL, IV Infusion, ONCE, 1 dose, Winsome 03/30/20 at 1915, STAT documented in this encounter Advance Directives Type Date Recorded Patient Quality Improvement Consultant Explanati on Advance Directives and Living Will Power of All Around Patternmaker Name Relationship Healthcare Agent Communication Relationship Troy Ling Spouse Primary healthcare agent Marcy Sandoval Mother First alternate [phone] Gerardo healthcare agent (Mobile) [email or web address]
[2020-03-31] MEDS ORDERED: dexAMETHasone 10 MG/ML VIAL ONE (16:12)
[2020-03-31] MEDS ORDERED: METOCLOPRAMIDE 10 MG/2mL INJ ONE (16:12)
[2020-03-31] MEDS ORDERED: DIPHENHYDRAMINE 50 MG/ML VIAL ONE (16:12)
[2020-03-31] MEDS ORDERED: NA CHLORIDE 0.9% 1,000 ML ONE (16:12)
--- NOTE | 2020-03-31 16:46 | ER ---
Nurse's Notes [facility] Name: Carmelina Alicia Age: 24 yrs Sex: Female : 1995 Arrival Date: 03/31/2020 Time: 13:47 Bed 18 Private MD: Diagnosis: Migraine Presentation: 03/31 13:48 Chief complaint: EMS states: migraine and nausea x 1 day. Pt seen at [facility] and [place] [facility] sv and discharged. Tested for COVID at [facility] and was negative. 13:49 Chief complaint: Patient states: generalized weakness and vomiting. sv 13:49 Method Of Arrival: Wheelchair sv 13:51 Coronavirus screen: Proceed with normal triage. Patient denies a cough. Patient denies sv shortness of breath or difficulty breathing. Patient reports a measured and/or subjective temperature greater than 100.4F. Patient denies travel on a cruise ship or to a country the [facility] currently lists as an affected area. Patient denies contact with known and/or suspected case of COVID-19. Ebola Screen: No symptoms or risks identified at this time. Initial Sepsis Screen: Does the patient meet any 2 criteria? No. Patient's initial sepsis screen is negative. Does the patient have a suspected source of infection? No. Patient's initial sepsis screen is negative. Risk Assessment: Do you want to hurt yourself or someone else? Patient reports no desire to harm self or others. Onset of symptoms was March 2020. 13:51 Acuity: ENIO 4 sv Triage Assessment: 13:53 Headache History: The patient has had previous headaches and this one is similar to previous episodes. General: Appears in no apparent distress. uncomfortable, Behavior is calm, cooperative, appropriate for age. Pain: Complains of pain in face and scalp. Neuro: Level of Consciousness is awake, alert, obeys commands. Neuro: Reports weakness. Respiratory: Respiratory effort is even, unlabored. GI: Reports nausea, vomiting. 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 - Social history:: Smoking status: Patient denies any tobacco usage or history of. Screenin:45 Abuse screen: Denies threats or abuse. Denies injuries from another. Nutritional ca1 screening: No deficits noted. Tuberculosis screening: No symptoms or risk factors identified. Fall Risk IV access (20 points). Assessment: 15:45 General: Appears in no apparent distress. comfortable, Behavior is calm, cooperative, ca1 appropriate for age. Pain: Complains of pain in face and scalp Pain radiates to neck Pain currently is 9 out of 10 on a pain scale. Pain began 2-3 days ago. Pain: Also complains of nausea. Neuro: Level of Consciousness is awake, alert, obeys commands, Oriented to person, place, time, situation, Appropriate for age. Cardiovascular: Heart tones S1 S2 present Capillary refill < 3 seconds Patient's skin is warm and dry. Respiratory: Airway is patent Respiratory effort is even, unlabored, Respiratory pattern is regular, symmetrical, Breath sounds are clear bilaterally. GI: Abdomen is round non-distended, Bowel sounds present X 4 quads. Abd is soft and non tender X 4 quads. Reports nausea, vomiting. : No signs and/or symptoms were reported regarding the genitourinary system. EENT: No signs and/or symptoms were reported regarding the EENT system. Derm: Skin is intact, is healthy with good turgor, Skin is pink, warm \T\ dry. Musculoskeletal: Circulation, motion, and sensation intact. Capillary refill < 3 seconds. 16:39 Reassessment: Patient appears in no apparent distress at this time. Patient and/or ca1 family updated on plan of care and expected duration. Pain level reassessed. Patient is alert, oriented x 3, equal unlabored respirations, skin warm/dry/pink. 17:16 Reassessment: Patient appears in no apparent distress at this time. Patient is alert, ca1 oriented x 3, equal unlabored respirations, skin warm/dry/pink. Patient states feeling better. Vital Signs: 13:51 BP 124 / 82; Pulse 76; Resp 16; Temp 98; Pulse Ox 97% ; Weight 102.97 kg; Height 5 ft. sv 5 in. (165.10 cm); 16:39 BP 154 / 76; Pulse 53; Resp 17 S; Pulse Ox 100% on R/A; ca1 17:16 BP 136 / 84; Pulse 55; Resp 18 S; Pulse Ox 100% on R/A; Pain 3/10; ca1 13:51 Body Mass Index 37.78 (102.97 kg, 165.10 cm) sv Graton Coma Score: 15:50 Eye Response: spontaneous(4). Verbal Response: oriented(5). Motor Response: obeys kb commands(6). Total: 15. ED Course: 13:47 Patient arrived in ED. sv 13:52 Triage completed. sv 13:52 Arm band placed on. sv 15:00 Carin Thornton FNP-C is PHCP. kb 15:00 Tong Zuñiga MD is Attending Physician. kb 15:45 Patient has correct armband on for positive identification. Bed in low position. Call ca1 light in reach. Side rails up X 1. Pulse ox on. NIBP on. Door closed. Noise minimized. Lights dimmed. Warm blanket given. 15:54 Eleanor Iverson, RN is Primary Nurse. ca1 16:08 Inserted saline lock: 20 gauge in right antecubital area, using aseptic technique. em1 17:18 No provider procedures requiring assistance completed. IV discontinued, intact, ca1 bleeding controlled, No redness/swelling at site. Pressure dressing applied. Administered Medications: 16:10 Drug: Decadron - Dexamethasone 10 mg Route: IVP; Site: right antecubital; ca1 17:15 Follow up: Response: No adverse reaction; Pain is decreased ca1 16:12 Drug: Benadryl 12.5 mg Route: IVP; Site: right antecubital; ca1 17:15 Follow up: Response: No adverse reaction; Pain is decreased ca1 16:13 Drug: NS 0.9% 1000 ml Route: IV; Rate: 1000 ml; Site: right antecubital; ca1 17:15 Follow up: Response: No adverse reaction; IV Status: Completed infusion ca1 16:14 Drug: Reglan 10 mg Route: IVP; Site: right antecubital; ca1 17:16 Follow up: Response: No adverse reaction; Pain is decreased; Nausea is decreased ca1 Outcome: 16:46 Discharge ordered by . kb 17:18 Discharged to home ambulatory. ca1 17:18 Condition: stable 17:18 Discharge instructions given to patient, Instructed on discharge instructions, follow up and referral plans. Demonstrated understanding of instructions, follow-up care. 17:18 Patient left the ED. ca1 Signatures: Carin Thornton, Keren Villa, RN RN Chris Farias em1 Eleanor Iverson RN RN ca1
--- NOTE | 2020-03-31 16:46 | EDPHYS ---
Physician Documentation [facility] Name: Carmelina Alicia Age: 24 yrs Sex: Female : 1995 Arrival Date: 03/31/2020 Time: 13:47 Bed 18 Private MD: ED Physician Tong Zuñiga HPI: 03/31 15:51 This 24 yrs old Female presents to ER via Wheelchair with complaints of kb Headache. 15:51 The patient complains of pain to the back of head. The patient describes the headache kb as constant. Onset: The symptoms/episode began/occurred 2 day(s) ago. Associated signs and symptoms: Pertinent positives: malaise, nausea, Photophobia vomiting, Pertinent negatives: altered mental status, dizziness, fever, neck stiffness, paresthesias, weakness. Severity of symptoms: At its worst the pain was moderate, in the emergency department the pain is unchanged. Headache History: The patient has had previous headaches and this one is similar to previous episodes. The symptoms are alleviated by nothing. the symptoms are aggravated by lights, movement, noise. The patient has experienced similar episodes in the past. The patient has been recently seen by a physician: the ER physician, out of Town, with similar presenting complaints, and apparently given a diagnosis of migraine, lab tests were done, X-rays were performed, CT scan was done. Pt reports headache for 2 days. Went to [facility] ER and had labs and x-rays of head, neck and abd done to evaluate shunt. Went to [facility] ER last night and had a CT done. Pt reports she has had this headache before and it was classified as a migraine. Refuses any additional imaging, stating that it has been done already. States she just wants stronger pain medication so she can rest. Labs and x-rays reviewed from [facility]. x-rays were normal, UA and CMP wnl, CBC normal except for WBC 11.3. Pt reports she has been vomiting every time she eats due to nausea. . 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 - Social history:: Smoking status: Patient denies any tobacco usage or history of. ROS: 15:58 ENT: Negative for injury, pain, and discharge, Neck: Negative for injury, pain, and kb swelling, Cardiovascular: Negative for chest pain, palpitations, and edema, Respiratory: Negative for shortness of breath, cough, wheezing, and pleuritic chest pain, Back: Negative for injury and pain, : Negative for injury, bleeding, discharge, and swelling, MS/Extremity: Negative for injury and deformity, Skin: Negative for injury, rash, and discoloration. 15:58 Constitutional: Positive for fatigue, Negative for body aches, chills, fever, malaise, poor PO intake, weight loss. 15:58 Abdomen/GI: Positive for nausea and vomiting, Negative for abdominal pain, diarrhea, constipation, abdominal cramps, abdominal distension, anorexia. 15:58 Neuro: Positive for headache, Negative for altered mental status, dizziness, gait disturbance, hearing loss, loss of consciousness, numbness, seizure activity, speech changes, syncope, near syncope, tingling, tinnitus, tremor, visual changes, weakness. Exam: 15:58 Constitutional: This is a well developed, well nourished patient who is awake, alert, kb and in no acute distress. Head/Face: Normocephalic, atraumatic. Eyes: Pupils equal round and reactive to light, extra-ocular motions intact. Lids and lashes normal. Conjunctiva and sclera are non-icteric and not injected. Cornea within normal limits. Periorbital areas with no swelling, redness, or edema. ENT: Nares patent. No nasal discharge, no septal abnormalities noted. Tympanic membranes are normal and external auditory canals are clear. Oropharynx with no redness, swelling, or masses, exudates, or evidence of obstruction, uvula midline. Mucous membranes moist. Neck: Trachea midline, no thyromegaly or masses palpated, and no cervical lymphadenopathy. Supple, full range of motion without nuchal rigidity, or vertebral point tenderness. No Meningismus. Chest/axilla: Normal chest wall appearance and motion. Nontender with no deformity. No lesions are appreciated. Cardiovascular: Regular rate and rhythm with a normal S1 and S2. No gallops, murmurs, or rubs. Normal PMI, no JVD. No pulse deficits. Respiratory: Lungs have equal breath sounds bilaterally, clear to auscultation and percussion. No rales, rhonchi or wheezes noted. No increased work of breathing, no retractions or nasal flaring. Abdomen/GI: Soft, non-tender, with normal bowel sounds. No distension or tympany. No guarding or rebound. No evidence of tenderness throughout. Skin: Warm, dry with normal turgor. Normal color with no rashes, no lesions, and no evidence of cellulitis. MS/ Extremity: Pulses equal, no cyanosis. Neurovascular intact. Full, normal range of motion. Neuro: Awake and alert, GCS 15, oriented to person, place, time, and situation. Cranial nerves II-XII grossly intact. Motor strength 5/5 in all extremities. Sensory grossly intact. Cerebellar exam normal. Normal gait. Vital Signs: 13:51 BP 124 / 82; Pulse 76; Resp 16; Temp 98; Pulse Ox 97% ; Weight 102.97 kg; Height 5 ft. sv 5 in. (165.10 cm); 16:39 BP 154 / 76; Pulse 53; Resp 17 S; Pulse Ox 100% on R/A; ca1 17:16 BP 136 / 84; Pulse 55; Resp 18 S; Pulse Ox 100% on R/A; Pain 3/10; ca1 13:51 Body Mass Index 37.78 (102.97 kg, 165.10 cm) sv Daron Coma Score: 15:50 Eye Response: spontaneous(4). Verbal Response: oriented(5). Motor Response: obeys kb commands(6). Total: 15. MDM: 15:39 Patient medically screened. robin 15:50 Data reviewed: vital signs, nurses notes. Data interpreted: Pulse oximetry: on room air kb is 97 %. Interpretation: normal. 16:45 Counseling: I had a detailed discussion with the patient and/or guardian regarding: the kb historical points, exam findings, and any diagnostic results supporting the discharge/admit diagnosis, the need for outpatient follow up, a family practitioner, to return to the emergency department if symptoms worsen or persist or if there are any questions or concerns that arise at home. Response to treatment: the patient's symptoms have resolved after treatment. ED course: Pt was sleeping comfortably when I entered the room. Awakened pt and she reported resolution of pain after medications. Will discharge home. . 03/31 15:51 Order name: IV Start; Complete Time: 16:08 kb Administered Medications: 16:10 Drug: Decadron - Dexamethasone 10 mg Route: IVP; Site: right antecubital; ca1 17:15 Follow up: Response: No adverse reaction; Pain is decreased ca1 16:12 Drug: Benadryl 12.5 mg Route: IVP; Site: right antecubital; ca1 17:15 Follow up: Response: No adverse reaction; Pain is decreased ca1 16:13 Drug: NS 0.9% 1000 ml Route: IV; Rate: 1000 ml; Site: right antecubital; ca1 17:15 Follow up: Response: No adverse reaction; IV Status: Completed infusion ca1 16:14 Drug: Reglan 10 mg Route: IVP; Site: right antecubital; ca1 17:16 Follow up: Response: No adverse reaction; Pain is decreased; Nausea is decreased ca1 Disposition: 04/01 14:36 Co-signature as Attending Physician, Tong Zuñiga MD I agree with the assessment and [facility] plan of care. Disposition: 03/31/20 16:46 Discharged to Home. Impression: Migraine. - Condition is Stable. - Discharge Instructions: Migraine Headache, [id number]. - Medication Reconciliation Form, Thank You Letter, Antibiotic Education, Prescription Opioid Use form. - Follow up: Emergency Department; When: As needed; Reason: Worsening of condition. Follow up: Private Physician; When: 2 - 3 days; Reason: Recheck today's complaints, Continuance of care, Re-evaluation by your physician. Signatures: Carin Thornton, ADELAIDE-C [employer] RECOVERY WORKER-Keren Mota RN RN sv Anderson, Corey, MD MD [facility] Eleanor Iverson RN RN ca1 Corrections: (The following items were deleted from the chart) 03/31 17:18 16:46 03/31/2020 16:46 Discharged to Home. Impression: Migraine. Condition is Stable. ca1 Forms are Medication Reconciliation Form, Thank You Letter, Antibiotic Education, Prescription Opioid Use. Follow up: Emergency Department; When: As needed; Reason: Worsening of condition. Follow up: Private Physician; When: 2 - 3 days; Reason: Recheck today's complaints, Continuance of care, Re-evaluation by your physician. kb
[2020-03-31 17:38] VITALS: O2SAT 100
[2020-03-31 17:40] VITALS: TEMP 98
[2020-03-31 17:41] VITALS: BP 136/84
== END 2020-03-31 17:18 | disposition home or self-care (01) ==
LOC: ER 13:44
DX: G43.909 Migraine, unspecified, not intractable, without status migrainosus (principal); E03.9 Hypothyroidism, unspecified; Z88.2 Allergy status to sulfonamides; Z88.5 Allergy status to narcotic agent; Z88.6 Allergy status to analgesic agent
CPT/HCPCS: 96361; 96374; 96375; 99283; J1100; J1200; J2765; J7030

== ENCOUNTER 2020-04-01 07:20 | Emergency (ER) | payer SELFPAY ==
[2020-04-01] MEDS ORDERED: MEPERIDINE HCL 50 MG/ML ONE (07:49)
[2020-04-01] MEDS ORDERED: METOCLOPRAMIDE 10 MG/2mL INJ ONE (07:50)
[2020-04-01] MEDS ORDERED: dexAMETHasone 10 MG/ML VIAL ONE (07:50)
[2020-04-01] MEDS ORDERED: NA CHLORIDE 0.9% 1,000 ML ONE (09:05)
[2020-04-01] MEDS ORDERED: DIPHENHYDRAMINE 50 MG/ML VIAL ONE (09:05)
--- NOTE | 2020-04-01 09:27 | EDPHYS ---
Physician Documentation [facility] Name: Carmelina Alicia Age: 24 yrs Sex: Female : 1995 Arrival Date: 04/01/2020 Time: 07:22 Bed 8 Private MD: ED Physician Vinayak Eastman HPI: 04/01 07:37 This 24 yrs old Female presents to ER via Wheelchair with complaints of Neck rn Pain/Migraine. 07:37 The patient complains of pain to the left base of the skull and right base of the rn skull. The patient describes the headache as aching, throbbing. Onset: The symptoms/episode began/occurred 2 day(s) ago. Associated signs and symptoms: Pertinent positives: nausea, vomiting, Pertinent negatives: altered mental status, fever, rash, vision changes, vision loss, vertigo. Severity of symptoms: At its worst the pain was moderate, in the emergency department the pain is unchanged. Headache History: The patient has had previous headaches and this one is similar to previous episodes. The symptoms are alleviated by remaining still, the symptoms are aggravated by movement. The patient has experienced similar episodes in the past. The patient has been recently seen by a physician:. Reports this is 4th hospital ER visit for headache and neck pain. Reports has had neg ct head and neck, xrays of shunt, and told everything looked ok. Each time, medicated and symptoms would improve, reports seen here yesterday and given "something", took her pain away until just this morning. Reports here because of recurrence of pain, not any new symptoms. Reports pain only when turns neck to either side. No sore throat or recent URI. No trouble or pain with swallowing. No focal neuro complaints. Reports pain increased again this morning, made her whole body numb and too painful to move herself. . 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 - Social history:: Smoking status: Patient denies any tobacco usage or history of. - Family history:: not pertinent. - Hospitalizations: : No recent hospitalization is reported. ROS: 07:37 Constitutional: Negative for fever, chills, and weight loss, Eyes: Negative for injury, rn pain, redness, and discharge, Neck: + pain at neck and base of skull Cardiovascular: Negative for chest pain, palpitations, and edema, Respiratory: Negative for shortness of breath, cough, wheezing, and pleuritic chest pain, Abdomen/GI: Negative for abdominal pain, diarrhea, and constipation, Back: Negative for injury and pain, MS/Extremity: Negative for injury and deformity, Skin: Negative for injury, rash, and discoloration, Neuro: Negative for weakness, and seizure. Exam: 07:37 Constitutional: This is a well developed, well nourished patient who is awake, alert, rn sitting upright with pillow behind neck Head/Face: Normocephalic, atraumatic. Eyes: Pupils equal round and reactiveConjunctiva and sclera are non-icteric and not injected. Cornea within normal limits. Periorbital areas with no swelling, redness, or edema. Neck: Trachea midline, no masses palpated, and no cervical lymphadenopathy. + tenderness along both posterior/lateral surfaces of neck, no bony tenderness. Cardiovascular: Regular rate and rhythm. No pulse deficits. Respiratory: Speaking full sentences. No increased work of breathing, no retractions or nasal flaring. Skin: Warm, dry MS/ Extremity: Pulses equal, no cyanosis. Neurovascular intact. Full, normal range of motion. Equal circumference. Neuro: Awake and alert, GCS 15, oriented to person, place, time, and situation. Cranial nerves II-XII grossly intact. Motor strength 5/5 in all extremities. Sensory grossly intact. Cerebellar exam normal. Vital Signs: 07:24 BP 139 / 91; Pulse 69; Resp 18; Temp 97.6(TE); Pulse Ox 98% on R/A; jb1 07:55 BP 128 / 75; Pulse 57; Resp 16; Pulse Ox 100% ; bp 09:04 BP 130 / 74; Pulse 45; Resp 16; Pulse Ox 97% ; bp Daron Coma Score: 09:24 Eye Response: spontaneous(4). Verbal Response: oriented(5). Motor Response: obeys rn commands(6). Total: 15. MDM: 07:24 Patient medically screened. rn 08:32 ED course: Pt improved, down from 8/10 to 5/10. Sleepy but still with painful ROM. Pain rn free if doesn't rotate head. . 09:24 Differential diagnosis: hypertensive headache, migraine, tension headache, vasomotor rn headache, shunt problem. Data reviewed: vital signs, nurses notes, old medical records, and as a result, I will discharge patient. Counseling: I had a detailed discussion with the patient and/or guardian regarding: the historical points, exam findings, and any diagnostic results supporting the discharge/admit diagnosis, the need for outpatient follow up, to return to the emergency department if symptoms worsen or persist or if there are any questions or concerns that arise at home. Special discussion: I discussed with the patient/guardian in detail that at this point there is no indication for admission to the hospital. It is understood, however, that if the symptoms persist or worsen the patient needs to return immediately for re-evaluation. ED course: Pt improved, has had several ER visits lately including negative imaging, normal neuro exam, and mother outside calling for her daughter states ready to go. . 04/01 07:37 Order name: IV Start; Complete Time: 07:55 rn Administered Medications: 07:50 Drug: Demerol 50 mg Route: IVP; Site: right antecubital; bp 09:03 Follow up: Response: Pain is decreased bp 07:50 Drug: Decadron - Dexamethasone 10 mg Route: IVP; Site: right antecubital; bp 09:03 Follow up: Response: No adverse reaction bp 07:50 Drug: Reglan 10 mg Route: IVP; Site: right antecubital; bp 09:04 Follow up: Response: Adverse reaction, Physician notified bp 09:03 Drug: NS 0.9% 1000 ml Route: IV; Rate: 1000 ml; Site: right antecubital; bp 09:42 Follow up: IV Status: Completed infusion; IV Intake: 1000ml bp 09:03 Drug: Benadryl 12.5 mg Route: IVP; Site: right antecubital; bp 09:42 Follow up: Response: No adverse reaction; Marked relief of symptoms bp Disposition: 04/01/20 09:27 Discharged to Home. Impression: Headache, Neck pain. - Condition is Stable. - Discharge Instructions: General Headache Without Cause. - Medication Reconciliation Form, Thank You Letter, Antibiotic Education, Prescription Opioid Use form. - Follow up: Private Physician; When: As needed; Reason: Recheck today's complaints, Re-evaluation by your physician. - Problem is an ongoing problem. - Symptoms have improved. Signatures: Vinayak Eastman MD MD rn Peltier, Brian, RN RN bp Corrections: (The following items were deleted from the chart) 07:42 07:37 Constitutional: Negative for fever, chills, and weight loss, Eyes: Negative for rn injury, pain, redness, and discharge, Neck: + pain at neck and base of skull Cardiovascular: Negative for chest pain, palpitations, and edema, Respiratory: Negative for shortness of breath, cough, wheezing, and pleuritic chest pain, Abdomen/GI: Negative for abdominal pain, diarrhea, and constipation, MS/Extremity: Negative for injury and deformity, Skin: Negative for injury, rash, and discoloration, Neuro: Negative for weakness, and seizure, rn 09:43 09:27 04/01/2020 09:27 Discharged to Home. Impression: Headache; Neck pain. Condition bp is Stable. Forms are Medication Reconciliation Form, Thank You Letter, Antibiotic Education, Prescription Opioid Use. Follow up: Private Physician; When: As needed; Reason: Recheck today's complaints, Re-evaluation by your physician. Problem is an ongoing problem. Symptoms have improved. rn
--- NOTE | 2020-04-01 09:27 | ER ---
Nurse's Notes [facility] Name: Carmelina Alicia Age: 24 yrs Sex: Female : 1995 Arrival Date: 04/01/2020 Time: 07:22 Bed 8 Private MD: Diagnosis: Headache;Neck pain Presentation: 04/01 07:27 Chief complaint: Patient states: NECK PAIN x3 DAYS, PAIN INCREASE WITH ROM. Coronavirus bp screen: Proceed with normal triage. Ebola Screen: No symptoms or risks identified at this time. Initial Sepsis Screen: Does the patient meet any 2 criteria? No. Patient's initial sepsis screen is negative. Does the patient have a suspected source of infection? No. Patient's initial sepsis screen is negative. Risk Assessment: Do you want to hurt yourself or someone else? Patient reports no desire to harm self or others. Onset of symptoms is unknown. 07:27 Method Of Arrival: Wheelchair bp 07:27 Acuity: ENIO 4 bp Triage Assessment: 07:29 General: Appears in no apparent distress. comfortable, obese, Behavior is cooperative, bp appropriate for age, anxious. Pain: Complains of pain in back of neck. EENT: No deficits noted. Neuro: Level of Consciousness is awake, alert, obeys commands, Oriented to person, place, time, situation, Appropriate for age. Cardiovascular: No deficits noted. Respiratory: No deficits noted. GI: No signs and/or symptoms were reported involving the gastrointestinal system. : No signs and/or symptoms were reported regarding the genitourinary system. Derm: No deficits noted. Musculoskeletal: No deficits noted. 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 - Social history:: Smoking status: Patient denies any tobacco usage or history of. - Family history:: not pertinent. - Hospitalizations: : No recent hospitalization is reported. Screenin:31 Abuse screen: Denies threats or abuse. Denies injuries from another. Nutritional bp screening: No deficits noted. Tuberculosis screening: No symptoms or risk factors identified. Fall Risk None identified. Assessment: 07:31 General: SEE TRIAGE NOTE. bp 09:41 Reassessment: PT D/C HOME WITH FAMILY VIA W/C, DX WITH HEADACHE. bp Vital Signs: 07:24 BP 139 / 91; Pulse 69; Resp 18; Temp 97.6(TE); Pulse Ox 98% on R/A; jb1 07:55 BP 128 / 75; Pulse 57; Resp 16; Pulse Ox 100% ; bp 09:04 BP 130 / 74; Pulse 45; Resp 16; Pulse Ox 97% ; bp Daron Coma Score: 09:24 Eye Response: spontaneous(4). Verbal Response: oriented(5). Motor Response: obeys rn commands(6). Total: 15. ED Course: 07:22 Patient arrived in ED. ds1 07:22 Randall Seymour, RN is Primary Nurse. bp 07:24 Vinayak Eastman MD is Attending Physician. rn 07:28 Triage completed. bp 07:29 Arm band placed on. bp 07:31 Patient has correct armband on for positive identification. Bed in low position. Call bp light in reach. Side rails up X2. 07:50 Inserted saline lock: 22 gauge in right antecubital area, using aseptic technique. bp Blood collected. 09:41 No provider procedures requiring assistance completed. IV discontinued, intact, bp bleeding controlled, No redness/swelling at site. Pressure dressing applied. Administered Medications: 07:50 Drug: Demerol 50 mg Route: IVP; Site: right antecubital; bp 09:03 Follow up: Response: Pain is decreased bp 07:50 Drug: Decadron - Dexamethasone 10 mg Route: IVP; Site: right antecubital; bp 09:03 Follow up: Response: No adverse reaction bp 07:50 Drug: Reglan 10 mg Route: IVP; Site: right antecubital; bp 09:04 Follow up: Response: Adverse reaction, Physician notified bp 09:03 Drug: NS 0.9% 1000 ml Route: IV; Rate: 1000 ml; Site: right antecubital; bp 09:42 Follow up: IV Status: Completed infusion; IV Intake: 1000ml bp 09:03 Drug: Benadryl 12.5 mg Route: IVP; Site: right antecubital; bp 09:42 Follow up: Response: No adverse reaction; Marked relief of symptoms bp Intake: 09:42 IV: 1000ml; Total: 1000ml. bp Outcome: 09:27 Discharge ordered by . rn 09:41 Discharged to home via wheelchair, with family. bp 09:41 Condition: stable 09:41 Discharge instructions given to patient, Instructed on discharge instructions, follow up and referral plans. Demonstrated understanding of instructions, follow-up care. 09:43 Patient left the ED. bp Signatures: Thanh Mujica jb1 Kacey Hidalgo ds1 Vinayak Eastman MD MD rn Lion, JOON Pereira RN bp
[2020-04-01 10:20] VITALS: BP 130/74; O2SAT 97
== END 2020-04-01 09:43 | disposition home or self-care (01) ==
LOC: ER 07:20
DX: R51 Headache (principal); E03.9 Hypothyroidism, unspecified; Z88.2 Allergy status to sulfonamides; Z88.5 Allergy status to narcotic agent
CPT/HCPCS: 96361; 96374; 96375; 99283; J1100; J1200; J2175; J2765; J7030

== ENCOUNTER 2023-05-06 08:54 | Emergency (ER) | payer OTHER, SELFPAY ==
--- OUTSIDE RECORDS SUMMARY | 2023-05-06 09:13 | XMS REPORT | Continuity of Care Document ---
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 [facility] of en-caff 00:00: mouth [place] 50-325-40 00 every 4 Medical mg tablet (four) Branch hours as needed (headache) . docusate 2022-0 Yes [id number] 100mg Take 1 [facility] 100 mg 6-26 capsule by [facility] of capsule 00:00: mouth 2 (two) Medical times Branch daily. famotidine 2022-0 Yes [id number] 20mg Take 1 [facility] 20 mg 6-26 tablet by [facility] of tablet 00:00: mouth (two) Medical times Branch daily. butalbital- 2022-0 Yes [id number] 1{tbl} Take 1 [facility] acetaminoph 6-26 tablet by [facility] of en-caff 00:00: mouth [place] 50-325-40 00 every 4 Medical mg tablet (four) Branch hours as needed (headache) . docusate 2022-0 Yes [id number] 100mg Take 1 [facility] 100 mg 6-26 capsule by [facility] of capsule 00:00: mouth (two) Medical times Branch daily. famotidine 2-0 Yes [id number] 20mg Take 1 [facility] 20 mg 6-26 tablet by [facility] of tablet 00:00: mouth (two) Medical times Branch daily. butalbital- 2022-0 Yes [id number] 1{tbl} Take 1 [facility] acetaminoph 6-26 tablet by [facility] of en-caff 00:00: mouth [place] 50-325-40 00 every 4 Medical mg tablet (four) Branch hours as needed (headache) . docusate 2022-0 Yes [id number] 100mg Take 1 [facility] 100 mg 6-26 capsule by [facility] of capsule 00:00: mouth 2 (two) Medical times Branch daily. famotidine 2022-0 Yes [id number] 20mg Take 1 [facility] 20 mg 6-26 tablet by [facility] of tablet 00:00: mouth 2 (two) Medical times Branch daily. butalbital- 2022-0 Yes [id number] 1{tbl} Take 1 [facility] acetaminoph 6-26 tablet by [facility] of en-caff 00:00: mouth [place] 50-325-40 00 every 4 Medical mg tablet (four) Branch hours as needed (headache) . docusate 2022-0 Yes [id number] 100mg Take 1 [facility] 100 mg 6-26 capsule by [facility] of capsule 00:00: mouth 2 (two) Medical times Branch daily. famotidine 2-0 Yes [id number] 20mg Take 1 [facility] 20 mg 6-26 tablet by [facility] of tablet 00:00: mouth 2 (two) Medical times Branch daily. butalbital- 2-0 Yes [id number] 1{tbl} Take 1 [facility] acetaminoph 6-26 tablet by [facility] of en-caff 00:00: mouth [place] 50-325-40 00 every 4 Medical mg tablet (four) Branch hours as needed (headache) . docusate 2-0 Yes [id number] 100mg Take 1 [facility] 100 mg 6-26 capsule by [facility] of capsule 00:00: mouth (two) Medical times Branch daily. famotidine 2-0 Yes [id number] 20mg Take 1 [facility] 20 mg 6-26 tablet by [facility] of tablet 00:00: mouth 2 (two) Medical times Branch daily. butalbital- 2-0 Yes [id number] 1{tbl} Take 1 [facility] acetaminoph 6-26 tablet by [facility] of en-caff 00:00: mouth [place] 50-325-40 00 every 4 Medical mg tablet (four) Branch hours as needed (headache) . docusate 2-0 Yes [id number] 100mg Take 1 [facility] 100 mg 6-26 capsule by [facility] of capsule 00:00: mouth 2 (two) Medical times Branch daily. famotidine 2022-0 Yes [id number] 20mg Take 1 [facility] 20 mg 6-26 tablet by [facility] of tablet 00:00: mouth 2 (two) Medical times Branch daily. butalbital- 2022-0 Yes [id number] 1{tbl} Take 1 [facility] acetaminoph 6-26 tablet by [facility] of en-caff 00:00: mouth [place] 50-325-40 00 every 4 Medical mg tablet (four) Branch hours as needed (headache) . docusate 2022-0 Yes [id number] 100mg Take 1 [facility] 100 mg 6-26 capsule by [facility] of capsule 00:00: mouth 2 00 (two) Medical times Branch daily. famotidine 2-0 Yes [id number] 20mg Take 1 [facility] 20 mg 6-26 tablet by [facility] of tablet 00:00: mouth 2 00 (two) Medical times Branch daily. butalbital- 2022-0 Yes [id number] 1{tbl} Take 1 [facility] acetaminoph 6-26 tablet by [facility] of en-caff 00:00: mouth [place] 50-325-40 00 every 4 Medical mg tablet (four) Branch hours as needed (headache) . docusate 2-0 Yes [id number] 100mg Take 1 [facility] 100 mg 6-26 capsule by [facility] of capsule 00:00: mouth 2 (two) Medical times Branch daily. famotidine 2-0 Yes [id number] 20mg Take 1 [facility] 20 mg 6-26 tablet by [facility] of tablet 00:00: mouth 2 (two) Medical times Branch daily. butalbital- 2-0 Yes [id number] 1{tbl} Take 1 [facility] acetaminoph 6-26 tablet by [facility] of en-caff 00:00: mouth [place] 50-325-40 00 every 4 Medical mg tablet (four) Branch hours as needed (headache) . docusate 2-0 Yes [id number] 100mg Take 1 [facility] 100 mg 6-26 capsule by [facility] of capsule 00:00: mouth 2 00 (two) Medical times Branch daily. famotidine 2022-0 Yes [id number] 20mg Take 1 [facility] 20 mg 6-26 tablet by [facility] of tablet 00:00: mouth 2 [place] 00 (two) Medical times Branch daily. butalbital- 2022-0 Yes [id number] 1{tbl} Take 1 [facility] acetaminoph 6-26 tablet by [facility] of en-caff 00:00: mouth [place] 50-325-40 00 every 4 Medical mg tablet (four) Branch hours as needed (headache) . docusate 2022-0 Yes [id number] 100mg Take 1 [facility] 100 mg 6-26 capsule by [facility] of capsule 00:00: mouth 2 [place] 00 (two) Medical times Branch daily. famotidine 2021-0 Yes [id number] 20mg Take 1 [facility] 20 mg 6-26 tablet by [facility] of tablet 00:00: mouth 2 [place] 00 (two) Medical times Branch daily. butalbital- 2021-0 Yes [id number] 1{tbl} Take 1 [facility] acetaminoph 6-26 tablet by [facility] of en-caff 00:00: mouth [place] 50-325-40 00 every 4 Medical mg tablet (four) Branch hours as needed (headache) . docusate 2021-0 Yes [id number] 100mg Take 1 [facility] 100 mg 6-26 capsule by [facility] of capsule 00:00: mouth 2 [place] 00 (two) Medical times Branch daily. famotidine 2021-0 Yes [id number] 20mg Take 1 [facility] 20 mg 6-26 tablet by [facility] of tablet 00:00: mouth 2 [place] 00 (two) Medical times Branch daily. acetaminoph 2021-0 3- No [id number] 325mg Take 1 [facility] en 325 mg 6-26 06-27 tablet by [facility] of tablet 00:00: 04:59 mouth [place] 00 :00 every 6 Medical (six) Branch hours as needed for Pain (scale 1-3). acetaminoph 2021-0 2023- No [id number] 325mg Take 1 [facility] en 325 mg 6-26 06-27 tablet by [facility] of tablet 00:00: 04:59 mouth [place] 00 :00 every 6 Medical (six) Branch hours as needed for Pain (scale 1-3). acetaminoph 2-0 2023- No [id number] 325mg Take 1 [facility] en 325 mg 6-26 06-27 tablet by [facility] of tablet 00:00: 04:59 mouth [place] 00 :00 every 6 Medical (six) Branch hours as needed for Pain (scale 1-3). acetaminoph 2022-0 2023- No [id number] 325mg Take 1 [facility] 325 mg 6-26 06-27 tablet by [facility] of tablet 00:00: 04:59 mouth [place] 00 :00 every 6 Medical (six) Branch hours as needed for Pain (scale 1-3). acetaminoph 2022- No [id number] 325mg Take 1 [facility] en 325 mg 6- 06-27 tablet by [facility] of tablet 00:00: 04:59 mouth [place] 00 :00 every 6 Medical (six) Branch hours as needed for Pain (scale 1-3). acetaminoph 2022- No [id number] 325mg Take 1 [facility] 325 mg 6-26 06-27 tablet by [facility] of tablet 00:00: 04:59 mouth [place] 00 :00 every 6 Medical (six) Branch hours as needed for Pain (scale 1-3). acetaminoph 2022- No [id number] 325mg Take 1 [facility] 325 mg 6-26 06-27 tablet by [facility] of tablet 00:00: 04:59 mouth [place] 00 :00 every 6 Medical (six) Branch hours as needed for Pain (scale 1-3). acetaminoph 2022- No [id number] 325mg Take 1 [facility] 325 mg 6- 06-27 tablet by [facility] of tablet 00:00: 04:59 mouth [place] 00 :00 every 6 Medical (six) Branch hours as needed for Pain (scale 1-3). acetaminoph 2022- No [id number] 325mg Take 1 [facility] en 325 mg 6- 06-27 tablet by [facility] of tablet 00:00: 04:59 mouth [place] 00 :00 every 6 Medical (six) Branch hours as needed for Pain (scale 1-3). acetaminoph 2022- No [id number] 325mg Take 1 [facility] 325 mg 6-26 06-27 tablet by [facility] of tablet 00:00: 04:59 mouth [place] 00 :00 every 6 Medical (six) Branch hours as needed for Pain (scale 1-3). acetaminoph 2022- No [id number] 325mg Take 1 [facility] 325 mg 6-26 06-27 tablet by [facility] of tablet 00:00: 04:59 mouth [place] 00 :00 every 6 Medical (six) Branch hours as needed for Pain (scale 1-3). acetaminoph 2022- No [id number] 325mg Take 1 [facility] 325 mg 6-26 06-27 tablet by [facility] of tablet 00:00: 04:59 mouth [place] 00 :00 every 6 Medical (six) Branch hours as needed for Pain (scale 1-3). acetaminoph 2022- No [id number] 325mg Take 1 [facility] en 325 mg 05-26 tablet by [facility] of tablet 00:00: 04:59 mouth [place] 00 :00 every 6 Medical (six) Branch hours as needed for Pain (scale 1-3). acetaminoph 2022- No [id number] 325mg Take 1 [facility] en 325 mg 05-26 tablet by [facility] of tablet 00:00: 04:59 mouth [place] 00 :00 every 6 Medical (six) Branch hours as needed for Pain (scale 1-3). acetaminoph 2022- No [id number] 325mg Take 1 [facility] en 325 mg 05-26 tablet by [facility] of tablet 00:00: 04:59 mouth [place] 00 :00 every 6 Medical (six) Branch hours as needed for Pain (scale 1-3). HYDROcodone 2021- No [id number] 1{tbl} Take 1 [facility] n[facility] -acetaminop 05-26- tablet by it y of hen 5-325 00:00: 04:59 mouth [place] mg tablet 00 :00 every 6 Medical (six) Branch hours as needed for Pain (scale 7-10) for up to 7 days. Indication s: acute pain Dose 2021-0 No Unknown 5-22 00:00: 00 levothyroxi No 1mcg ne 175 mcg -22 tablet 00:00: 00 Dose 2021-0 No Unknown 5-04 00:00: 00 Dose 2021-0 No Unknown 5-04 00:00: 00 TAKE 1 2021-0 No TABLET 5-03 TWICE DAILY 00:00: UNTIL 00 FINISHED. metronidazo 2021-0 No 1mg le 500 mg 5-03 tablet 00:00: 00 Dose 2021-0 No Unknown 4-09 00:00: 00 Dose 2021-0 No Unknown 4-09 00:00: 00 Dose 2021-0 No Unknown 4-09 00:00: 00 Dose 2021-0 No Unknown 4-09 00:00: 00 Dose 2021-0 No Unknown 4-09 00:00: 00 Dose 2022-0 No Unknown 4-09 00:00: 00 Dose 2022-0 No Unknown 4-09 00:00: 00 Dose 2022-0 No Unknown 4-09 00:00: 00 Dose 2022-0 No Unknown 4-09 00:00: 00 Dose 2022-0 No Unknown 4-09 00:00: 00 Dose 2022-0 No Unknown 4-09 00:00: 00 Dose 2022-0 No Unknown 4-09 00:00: 00 Dose 2022-0 No Unknown 4-09 00:00: 00 Dose 2022-0 No Unknown 4-09 00:00: 00 Dose 2022-0 No Unknown 4-09 00:00: 00 Dose 2022-0 No Unknown 4-09 00:00: 00 Dose 2022-0 No Unknown 4-09 00:00: 00 Dose 2022-0 No Unknown 4-09 00:00: 00 Dose 2022-0 No Unknown 4-09 00:00: 00 Dose 2022-0 No Unknown 4-09 00:00: 00 Dose 2022-0 No Unknown 4-09 00:00: 00 Dose 2022-0 No Unknown 4-09 00:00: 00 Dose 2022-0 No Unknown 4-09 00:00: 00 Dose 2022-0 No Unknown 4-09 00:00: 00 Dose 2022-0 No Unknown 4-09 00:00: 00 Dose 2022-0 No Unknown 4-09 00:00: 00 Dose 2022-0 No Unknown 4-09 00:00: 00 Dose 2022-0 No Unknown 4-09 00:00: 00 Dose 2022-0 No Unknown 4-09 00:00: 00 Dose 2022-0 No Unknown 4-09 00:00: 00 Dose 2022-0 No Unknown 4-09 00:00: 00 Dose 2022-0 No Unknown 4-09 00:00: 00 Dose 2022-0 No Unknown 4-09 00:00: 00 Dose 2022-0 No Unknown 4-09 00:00: 00 Dose 2022-0 No Unknown 4-09 00:00: 00 Dose 2022-0 No Unknown 4-09 00:00: 00 Dose 2022-0 No Unknown 4-09 00:00: 00 Dose 2022-0 No Unknown 4-09 00:00: 00 Dose 2022-0 No Unknown 4-09 00:00: 00 Dose 2022-0 No Unknown 4-09 00:00: 00 Dose 2022-0 No Unknown 4-09 00:00: 00 Dose 2022-0 No Unknown 4-09 00:00: 00 Dose 2022-0 No Unknown 4-09 00:00: 00 Dose 2022-0 No Unknown 4-09 00:00: 00 Dose 2022-0 No Unknown 4-09 00:00: 00 Dose 2022-0 No Unknown 4-09 00:00: 00 Dose 2022-0 No Unknown 4-09 00:00: 00 Dose 2022-0 No Unknown 4-09 00:00: 00 Dose 2022-0 No Unknown 4-09 00:00: 00 Dose 2022-0 No Unknown 4-09 00:00: 00 Dose 2022-0 No Unknown 4-09 00:00: 00 Dose 2022-0 No Unknown 4-09 00:00: 00 Dose 2022-0 No Unknown 4-09 00:00: 00 Dose 2022-0 No Unknown 4-09 00:00: 00 Dose 2022-0 No Unknown 4-09 00:00: 00 Dose 2022-0 No Unknown 4-09 00:00: 00 Dose 2022-0 No Unknown 4-09 00:00: 00 Dose 2022-0 No Unknown 4-09 00:00: 00 Dose 2022-0 No Unknown 4-09 00:00: 00 Dose 2022-0 No Unknown 4-09 00:00: 00 Dose 2022-0 No Unknown 4-09 00:00: 00 Dose 2022-0 No Unknown 4-09 00:00: 00 Dose 2022-0 No Unknown 4-09 00:00: 00 Dose 2022-0 No Unknown 4-09 00:00: 00 Dose 2022-0 No Unknown 4-09 00:00: 00 Dose 2022-0 No Unknown 4-09 00:00: 00 Dose 2022-0 No Unknown 4-09 00:00: 00 Dose 2022-0 No Unknown 4-09 00:00: 00 Dose 2022-0 No Unknown 4-09 00:00: 00 Dose 2022-0 No Unknown 4-09 00:00: 00 Dose 2022-0 No Unknown 4-09 00:00: 00 Dose 2022-0 No Unknown 4-09 00:00: 00 Dose 2022-0 No Unknown 4-09 00:00: 00 Dose 2022-0 No Unknown 4-09 00:00: 00 Dose 2022-0 No Unknown 4-09 00:00: 00 Dose 2022-0 No Unknown 4-09 00:00: 00 Dose 2022-0 No Unknown 4-09 00:00: 00 Dose 2022-0 No Unknown 4-09 00:00: 00 Dose 2022-0 No Unknown 4-09 00:00: 00 Dose 2022-0 No Unknown 4-09 00:00: 00 Dose 2022-0 No Unknown 4-09 00:00: 00 Dose 2022-0 No Unknown 4-09 00:00: 00 Dose 2022-0 No Unknown 4-09 00:00: 00 Dose 2022-0 No Unknown 4-09 00:00: 00 Dose 2022-0 No Unknown 4-09 00:00: 00 Dose 2022-0 No Unknown 4-09 00:00: 00 Dose 2022-0 No Unknown 4-09 00:00: 00 Dose 2022-0 No Unknown 4-09 00:00: 00 Dose 2022-0 No Unknown 4-09 00:00: 00 Dose 2022-0 No Unknown 4-09 00:00: 00 Dose 2022-0 No Unknown 4-09 00:00: 00 Dose 2022-0 No Unknown 4-09 00:00: 00 Dose 2022-0 No Unknown 4-09 00:00: 00 Dose 2022-0 No Unknown 4-09 00:00: 00 Dose 2022-0 No Unknown 4-09 00:00: 00 Dose 2022-0 No Unknown 4-09 00:00: 00 Dose 2022-0 No Unknown 4-09 00:00: 00 Dose 2022-0 No Unknown 4-09 00:00: 00 Dose 2022-0 No Unknown 4-09 00:00: 00 Dose 2022-0 No Unknown 4-09 00:00: 00 Dose 2022-0 No Unknown 4-09 00:00: 00 Dose 2022-0 No Unknown 4-09 00:00: 00 Dose 2022-0 No Unknown 4-09 00:00: 00 Dose 2022-0 No Unknown 4-09 00:00: 00 Dose 2022-0 No Unknown 4-09 00:00: 00 Dose 2022-0 No Unknown 4-09 00:00: 00 Dose 2022-0 No Unknown 4-09 00:00: 00 Dose 2022-0 No Unknown 4-09 00:00: 00 Dose 2022-0 No Unknown 4-09 00:00: 00 Dose 2022-0 No Unknown 4-09 00:00: 00 Dose 2022-0 No Unknown 4-09 00:00: 00 Dose 2022-0 No Unknown 4-09 00:00: 00 Dose 2022-0 No Unknown 4-08 00:00: 00 Dose 2022-0 No Unknown 4-08 00:00: 00 Dose 2022-0 No Unknown 4-08 00:00: 00 Dose 2022-0 No Unknown 4-08 00:00: 00 Dose 2022-0 No Unknown 4-08 00:00: 00 Dose 2022-0 No Unknown 4-08 00:00: 00 Dose 2022-0 No Unknown 4-08 00:00: 00 Dose 2022-0 No Unknown 4-08 00:00: 00 Dose 2022-0 No Unknown 4-08 00:00: 00 Dose 2022-0 No Unknown 4-08 00:00: 00 Dose 2022-0 No Unknown 4-08 00:00: 00 Dose 2022-0 No Unknown 4-08 00:00: 00 Dose 2022-0 No Unknown 4-08 00:00: 00 Dose 2022-0 No Unknown 4-08 00:00: 00 Dose 2022-0 No Unknown 4-08 00:00: 00 Dose 2022-0 No Unknown 4-08 00:00: 00 Dose 2022-0 No Unknown 4-05 00:00: 00 Dose 2022-0 No Unknown 4-05 00:00: 00 Dose 2022-0 No Unknown 4-05 00:00: 00 Dose 2022-0 No Unknown 4-05 00:00: 00 Dose 2022-0 No Unknown 4-05 00:00: 00 Dose 2022-0 No Unknown 4-05 00:00: 00 Dose 2022-0 No Unknown 4-05 00:00: 00 Dose 2022-0 No Unknown 4-05 00:00: 00 Dose 2022-0 No Unknown 4-05 00:00: 00 Dose 2022-0 No Unknown 4-05 00:00: 00 Dose 2022-0 No Unknown 4-05 00:00: 00 Dose 2022-0 No Unknown 4-05 00:00: 00 Dose 2022-0 No Unknown 4-05 00:00: 00 Dose 2022-0 No Unknown 4-05 00:00: 00 Dose 2022-0 No Unknown 4-05 00:00: 00 Dose 2022-0 No Unknown 4-05 00:00: 00 Dose 2022-0 No Unknown 4-05 00:00: 00 Dose 2022-0 No Unknown 4-05 00:00: 00 Dose 2022-0 No Unknown 4-05 00:00: 00 Dose 2022-0 No Unknown 4-05 00:00: 00 Dose 2022-0 No Unknown 4-05 00:00: 00 Dose 2022-0 No Unknown 4-05 00:00: 00 Dose 2022-0 No Unknown 4-05 00:00: 00 Dose 2022-0 No Unknown 4-05 00:00: 00 Dose 2022-0 No Unknown 4-05 00:00: 00 Dose 2022-0 No Unknown 4-05 00:00: 00 Dose 2022-0 No Unknown 4-05 00:00: 00 Dose 2022-0 No Unknown 4-05 00:00: 00 Dose 2022-0 No Unknown 4-05 00:00: 00 Dose 2022-0 No Unknown 4-05 00:00: 00 Dose 2022-0 No Unknown 4-05 00:00: 00 Dose 2022-0 No Unknown 4-05 00:00: 00 Dose 2022-0 No Unknown 4-05 00:00: 00 Dose 2022-0 No Unknown 4-05 00:00: 00 Dose 2022-0 No Unknown 4-05 00:00: 00 Dose 2022-0 No Unknown 4-05 00:00: 00 Dose 2022-0 No Unknown 4-05 00:00: 00 Dose 2022-0 No Unknown 4-05 00:00: 00 Dose 2022-0 No Unknown 4-05 00:00: 00 Dose 2022-0 No Unknown 4-05 00:00: 00 Dose 2022-0 No Unknown 3-08 00:00: 00 Dose 2022-0 No Unknown 3-08 00:00: 00 Dose 2022-0 No Unknown 3-08 00:00: 00 Dose 2022-0 No Unknown 3-08 00:00: 00 Dose No Unknown 3-07 00:00: 00 Mirena 20 0 No 1(7 mcg/24 3-07 yrs) 52 hours (7 00:00: mg yrs) 52 mg 00 intrauterin e device albuterol Yes [id number] 2{puff} Inhale 2 [facility] 90 2-20 Puffs ity of mcg/actuati 00:00: every 6 Pradip as on inhaler 00 (six) Medical hours as Branch needed for Wheezing, Shortness of Breath or Chest tightness. albuterol Yes [id number] 2{puff} Inhale 2 [facility] 90 2-20 Puffs ity of mcg/actuati 00:00: every 6 Pradip as on inhaler 00 (six) Medical hours as Branch needed for Wheezing, Shortness of Breath or Chest tightness. albuterol Yes [id number] 2{puff} Inhale 2 [facility] 90 2-20 Puffs ity of mcg/actuati 00:00: every 6 Pradip as on inhaler 00 (six) Medical hours as Branch needed for Wheezing, Shortness of Breath or Chest tightness. albuterol Yes [id number] 2{puff} Inhale 2 [facility] 90 2-20 Puffs ity of mcg/actuati 00:00: every 6 Pradip as on inhaler 00 (six) Medical hours as Branch needed for Wheezing, Shortness of Breath or Chest tightness. albuterol Yes [id number] 2{puff} Inhale 2 [facility] 90 2-20 Puffs ity of mcg/actuati 00:00: every 6 Pradip as on inhaler 00 (six) Medical hours as Branch needed for Wheezing, Shortness of Breath or Chest tightness. albuterol Yes [id number] 2{puff} Inhale 2 [facility] 90 2-20 Puffs ity of mcg/actuati 00:00: every 6 Pradip as on inhaler 00 (six) Medical hours as Branch needed for Wheezing, Shortness of Breath or Chest tightness. albuterol Yes [id number] 2{puff} Inhale 2 [facility] 90 2-20 Puffs ity of mcg/actuati 00:00: every 6 Pradip as on inhaler 00 (six) Medical hours as Branch needed for Wheezing, Shortness of Breath or Chest tightness. albuterol Yes [id number] 2{puff} Inhale 2 [facility] 90 2-20 Puffs ity of mcg/actuati 00:00: every 6 Pradip as on inhaler 00 (six) Medical hours as Branch needed for Wheezing, Shortness of Breath or Chest tightness. albuterol Yes [id number] 2{puff} Inhale 2 [facility] 90 2-20 Puffs ity of mcg/actuati 00:00: every 6 Pradip as on inhaler 00 (six) Medical hours as Branch needed for Wheezing, Shortness of Breath or Chest tightness. albuterol Yes [id number] 2{puff} Inhale 2 [facility] 90 2-20 Puffs ity of mcg/actuati 00:00: every 6 Pradip as on inhaler 00 (six) Medical hours as Branch needed for Wheezing, Shortness of Breath or Chest tightness. albuterol Yes [id number] 2{puff} Inhale 2 [facility] 90 2-20 Puffs ity of mcg/actuati 00:00: every 6 Pradip as on inhaler 00 (six) Medical hours as Branch needed for Wheezing, Shortness of Breath or Chest tightness. albuterol Yes [id number] 2{puff} Inhale 2 [facility] 90 2-20 Puffs ity of mcg/actuati 00:00: every 6 Pradip as on inhaler 00 (six) Medical hours as Branch needed for Wheezing, Shortness of Breath or Chest tightness. albuterol Yes [id number] 2{puff} Inhale 2 [facility] 90 2-20 Puffs ity of mcg/actuati 00:00: every 6 Pradip as on inhaler 00 (six) Medical hours as Branch needed for Wheezing, Shortness of Breath or Chest tightness. albuterol Yes [id number] 2{puff} Inhale 2 [facility] 90 2-20 Puffs ity of mcg/actuati 00:00: every 6 Pradip as on inhaler 00 (six) Medical hours as Branch needed for Wheezing, Shortness of Breath or Chest tightness. albuterol Yes [id number] 2{puff} Inhale 2 [facility] 90 2-20 Puffs ity of mcg/actuati 00:00: every 6 Pradip as on inhaler 00 (six) Medical hours as Branch needed for Wheezing, Shortness of Breath or Chest tightness. Dose 2020-12 No Unknown 2-14 00:00: 00 Dose 2020-12 No Unknown 2-14 00:00: 00 Diflucan 2020-12 No 1mg 150 mg 2-09 tablet 00:00: 00 Dose 2020-12 No Unknown 2-09 00:00: 00 Dose 2020-12 No Unknown 2-09 00:00: 00 Diflucan 2020-12 No 1mg 150 mg 2-09 tablet 00:00: 00 Dose 2020-12 No Unknown 2-09 00:00: 00 levothyroxi 2020-12 No 1mcg ne 200 mcg 2-09 capsule 00:00: 00 azithromyci 2020-12 Yes [id number] 250mg Take 1 [facility] n 250 mg 1-26 tablet by [facility] of tablet 00:00: mouth [place] 00 daily. Medical Branch predniSONE 2020-12 Yes [id number] TAKE ONE [facility] 20 mg 1-26 TABLET BY ity of tablet 00:00: MOUTH [place] 00 DAILY Medical Branch azithromyci 2020-12 Yes [id number] 250mg Take 1 [facility] n 250 mg 1-26 tablet by [facility] of tablet 00:00: mouth [place] 00 daily. Medical Branch predniSONE 2020-12 Yes [id number] TAKE ONE [facility] 20 mg 1-26 TABLET BY ity of tablet 00:00: MOUTH [place] 00 DAILY Medical Branch azithromyci 2020- Yes [id number] 250mg Take 1 [facility] n 250 mg 1-26 tablet by [facility] of tablet 00:00: mouth [place] 00 daily. Medical Branch predniSONE 2020- Yes [id number] TAKE ONE [facility] 20 mg 1-26 TABLET BY [facility]y of tablet 00:00: MOUTH [place] 00 DAILY Medical [facility] azithromyci 2020- Yes [id number] 250mg Take 1 [facility] n 250 mg 1-26 tablet by [facility] of tablet 00:00: mouth [place] 00 daily. Medical Branch predniSONE 2020- Yes [id number] TAKE ONE [facility] 20 mg 1-26 TABLET BY [facility]y of tablet 00:00: MOUTH [place] 00 DAILY [facility] azithromyci 2020- Yes [id number] 250mg Take 1 [facility] n 250 mg 1-26 tablet by [facility] of tablet 00:00: mouth [place] 00 daily. [facility] predniSONE 2020- Yes [id number] TAKE ONE [facility] 20 mg 1-26 TABLET BY [facility]y of tablet 00:00: MOUTH [place] 00 DAILY [facility] azithromyci 2020- Yes [id number] 250mg Take 1 [facility] n 250 mg 1-26 tablet by [facility] of tablet 00:00: mouth [place] 00 daily. Medical [facility] predniSONE 2020- Yes [id number] TAKE ONE [facility] 20 mg 1-26 TABLET BY [facility]y of tablet 00:00: MOUTH [place] 00 DAILY [facility] azithromyci 2020-12 Yes [id number] 250mg Take 1 [facility] n 250 mg 1-26 tablet by [facility] of tablet 00:00: mouth [place] 00 daily. [facility] predniSONE 2020- Yes [id number] TAKE ONE [facility] 20 mg 1-26 TABLET BY [facility]y of tablet 00:00: MOUTH [place] 00 DAILY [facility] azithromyci 2020- Yes [id number] 250mg Take 1 [facility] n 250 mg 1-26 tablet by [facility] of tablet 00:00: mouth [place] 00 daily. [facility] predniSONE 2020- Yes [id number] TAKE ONE [facility] 20 mg 1-26 TABLET BY [facility]y of tablet 00:00: MOUTH [place] 00 DAILY [facility] azithromyci 2020- Yes [id number] 250mg Take 1 [facility] n 250 mg 1-26 tablet by [facility] of tablet 00:00: mouth [place] 00 daily. [facility] predniSONE 2020- Yes [id number] TAKE ONE [facility] 20 mg 1-26 TABLET BY [facility]y of tablet 00:00: MOUTH [place] 00 DAILY [facility] azithromyci 2020- Yes [id number] 250mg Take 1 [facility] n 250 mg 1-26 tablet by [facility]y of tablet 00:00: mouth [place] 00 daily. [facility] predniSONE 2020- Yes [id number] TAKE ONE [facility] 20 mg 1-26 TABLET BY [facility]y of tablet 00:00: MOUTH [place] 00 DAILY [facility] azithromyci 2020- Yes [id number] 250mg Take 1 [facility] n 250 mg 1-26 tablet by [facility] of tablet 00:00: mouth [place] 00 daily. [facility] predniSONE 2020- Yes [id number] TAKE ONE [facility] 20 mg 1-26 TABLET BY [facility]y of tablet 00:00: MOUTH [place] 00 DAILY [facility] azithromyci 2020-12 Yes [id number] 250mg Take 1 [facility] n 250 mg 1-26 tablet by [facility] of tablet 00:00: mouth [place] 00 daily. [facility] predniSONE 2020-12 Yes [id number] TAKE ONE [facility] 20 mg 1-26 TABLET BY [facility]y of tablet 00:00: MOUTH [place] 00 DAILY [facility] azithromyci 2020-12 Yes [id number] 250mg Take 1 [facility] n 250 mg 1-26 tablet by [facility] of tablet 00:00: mouth [place] 00 daily. [facility] predniSONE 2020-12 Yes [id number] TAKE ONE [facility] 20 mg 1-26 TABLET BY [facility]y of tablet 00:00: MOUTH [place] 00 DAILY [facility] azithromyci 2020-12 Yes [id number] 250mg Take 1 [facility] n 250 mg 1-26 tablet by [facility] of tablet 00:00: mouth [place] 00 daily. [facility] predniSONE 2020-12 Yes [id number] TAKE ONE [facility] 20 mg 1-26 TABLET BY [facility]y of tablet 00:00: MOUTH [place] 00 DAILY [facility] azithromyci 2020-12 Yes [id number] 250mg Take 1 [facility] n 250 mg 1-26 tablet by [facility] of tablet 00:00: mouth [place] 00 daily. Medical [facility] predniSONE 2020-12 Yes [id number] TAKE ONE [facility] 20 mg 1-26 TABLET BY [facility] tablet 00:00: MOUTH [place] 00 DAILY [facility] moxifloxaci 2020-12 Yes [id number] 1[drp] Place 1 [facility] n 0.5 % 1-20 [id number] Drop in [facility] ophthalmic 00:00: right eye [place] drops 00 3 (three) Medical times Branch daily. moxifloxaci 2020-12 Yes [id number] 1[drp] Place 1 [facility] n 0.5 % 1-20 [id number] Drop in [facility] ophthal[facility] 00:00: right eye [place] drops 00 3 (three) Medical times [facility] daily. moxifloxaci 2020-12 Yes [id number] 1[drp] Place 1 [facility] 0.5 % 1-20 [id number] Drop in [facility] 00:00: right eye [place] drops 00 3 (three) Medical times [facility] daily. moxifloxaci 2020-12 Yes [id number] 1[drp] Place 1 [facility] 0.5 % 1-20 [id number] Drop in [facility] ophthalmic 00:00: right eye [place] drops 00 3 (three) Medical times [facility] daily. moxifloxaci 2020-12 [address] [id number] 1[drp] Place 1 [facility] n 0.5 % 1-20 [id number] Drop in [facility] ophthalmic 00:00: [place] eye [place] drops 00 3 (three) Medical times Branch daily. moxifloxaci 2020-12 Yes [id number] 1[drp] Place 1 [facility] n 0.5 % 1-20 [id number] Drop in [facility] ophthalmic 00:00: right eye [place] drops 00 3 (three) Medical times Branch daily. moxifloxaci 2020-12 Yes [id number] 1[drp] Place 1 [facility] n 0.5 % 1-20 [id number] Drop in [facility] ophthalmic 00:00: right eye [place] drops 00 3 (three) Medical times Branch daily. moxifloxaci 2020-12 Yes [id number] 1[drp] Place 1 [facility] n 0.5 % 1-20 [id number] Drop in [facility] ophthalmic 00:00: right eye [place] drops 00 3 (three) Medical times Branch daily. moxifloxaci 2020-12 Yes [id number] 1[drp] Place 1 [facility] n 0.5 % 1-20 [id number] Drop in [facility] ophthalmic 00:00: right eye [place] drops 00 3 (three) Medical times Branch daily. moxifloxaci 2020-12 Yes [id number] 1[drp] Place 1 [facility] n 0.5 % 1-20 [id number] Drop in [facility] ophthalmic 00:00: right eye [place] drops 00 3 (three) Medical times Branch daily. moxifloxaci 2020-12 Yes [id number] 1[drp] Place 1 [facility] n 0.5 % 1-20 [id number] Drop in [facility] ophthalmic 00:00: right eye [place] drops 00 3 (three) Medical times Branch daily. moxifloxaci 2020-12 Yes [id number] 1[drp] Place 1 [facility] n 0.5 % 1-20 [id number] Drop in [facility] ophthalmic 00:00: right eye [place] drops 00 3 (three) Medical times Branch daily. moxifloxaci 2020-12 Yes [id number] 1[drp] Place 1 [facility] n 0.5 % 1-20 [id number] Drop in [facility] ophthalmic 00:00: right eye [place] drops 00 3 (three) Medical times Branch daily. moxifloxaci 2020-12 Yes [id number] 1[drp] Place 1 [facility] n 0.5 % 1-20 [id number] Drop in [facility] ophthalmic 00:00: right eye [place] drops 00 3 (three) Medical times Branch daily. moxifloxaci 2020-12 Yes [id number] 1[drp] Place 1 [facility] n 0.5 % 1-20 [id number] Drop in [facility] ophthalmic 00:00: right eye [place] drops 00 3 (three) Medical times Branch daily. acetaZOLAMI 2020-12 Yes 750mg Take 3 [facility] [place] 250 mg 0-22 tablets by ity of tablet 00:00: mouth 2 (two) Medical times Branch daily. acetaZOLAMI 2020-12 Yes 750mg Take 3 [facility] [place] 250 mg 0-22 tablets by ity of tablet 00:00: mouth 2 (two) Medical times Branch daily. acetaZOLAMI 2020-12 Yes 750mg Take 3 [facility] [place] 250 mg 0-22 tablets by ity of tablet 00:00: mouth 2 (two) Medical times Branch daily. acetaZOLAMI 2020-12 Yes 750mg Take 3 [facility] [place] 250 mg 0-22 tablets by ity of tablet 00:00: mouth 2 (two) Medical times Branch daily. acetaZOLAMI 2020-12 Yes 750mg Take 3 [facility] [place] 250 mg 0-22 tablets by ity of tablet 00:00: mouth 2 (two) Medical times Branch daily. acetaZOLAMI 2020-12 Yes 750mg Take 3 [facility] [place] 250 mg 0-22 tablets by ity of tablet 00:00: mouth 2 (two) Medical times Branch daily. acetaZOLAMI 2020-12 Yes 750mg Take 3 [facility] [place] 250 mg 0-22 tablets by ity of tablet 00:00: mouth 2 (two) Medical times Branch daily. acetaZOLAMI 2020-12 Yes 750mg Take 3 [facility] vers [place] 250 mg 0-22 tablets by ity of tablet 00:00: mouth in [place] 00 the Medical morning Branch and 3 tablets in the evening. acetaZOLAMI 2020-12 Yes 750mg Take 3 [facility] vers [place] 250 mg 0-22 tablets by ity of tablet 00:00: mouth in [place] 00 the Medical morning Branch and 3 tablets in the evening. acetaZOLAMI 2020-12 Yes 750mg Take 3 [facility] vers [place] 250 mg 0-22 tablets by ity of tablet 00:00: mouth in [place] 00 the Medical morning Branch and 3 tablets in the evening. acetaZOLAMI 2020-12 Yes 750mg Take 3 [facility] vers [place] 250 mg 0-22 tablets by ity of tablet 00:00: mouth in [place] 00 the Medical morning Branch and 3 tablets in the evening. acetaZOLAMI 2020-12 Yes 750mg Take 3 [facility] vers [place] 250 mg 0-22 tablets by ity of tablet 00:00: mouth in [place] 00 the Medical morning Branch and 3 tablets in the evening. acetaZOLAMI 2020-12 Yes 750mg Take 3 [facility] vers [place] 250 mg 0-22 tablets by ity of tablet 00:00: mouth in [place] 00 the Medical morning Branch and 3 tablets in the evening. acetaZOLAMI 2020-12 Yes 750mg Take 3 [facility] vers [place] 250 mg 0-22 tablets by ity of tablet 00:00: mouth in [place] 00 the Medical morning Branch and 3 tablets in the evening. acetaZOLAMI 2020-12 Yes 750mg Take 3 [facility] vers [place] 250 mg 0-22 tablets by ity of tablet 00:00: mouth in [place] 00 the Medical morning Branch and 3 tablets in the evening. levothyroxi 2020-12 Yes [id number] 200ug Take 1 [facility] ne 200 mcg 0-15 tablet by ity of tablet 00:00: mouth [place] 00 every Medical morning. Branch levothyroxi 2020-12 Yes [id number] 200ug Take 1 [facility] ne 200 mcg 0-15 tablet by ity of tablet 00:00: mouth [place] 00 every Medical morning. Branch levothyroxi 2020-12 Yes [id number] 200ug Take 1 [facility] ne 200 mcg 0-15 tablet by ity of tablet 00:00: mouth [place] 00 every Medical morning. Branch levothyroxi 2020-12 Yes [id number] 200ug Take 1 [facility] ne 200 mcg 0-15 tablet by ity of tablet 00:00: mouth [place] 00 every Medical morning. Branch levothyroxi 2020-12 Yes [id number] 200ug Take 1 [facility] ne 200 mcg 0-15 tablet by ity of tablet 00:00: mouth [place] 00 every Medical morning. Branch levothyroxi 2020-12 Yes [id number] 200ug Take 1 [facility] ne 200 mcg 0-15 tablet by ity of tablet 00:00: mouth [place] 00 every Medical morning. Branch levothyroxi 2020-12 Yes [id number] 200ug Take 1 [facility] ne 200 mcg 0-15 tablet by ity of tablet 00:00: mouth [place] 00 every Medical morning. Branch levothyroxi 2020-12 Yes [id number] 200ug Take 1 [facility] ne 200 mcg 0-15 tablet by ity of tablet 00:00: mouth [place] 00 every Medical morning. Branch levothyroxi 2020-12 Yes [id number] 200ug Take 1 [facility] ne 200 mcg 0-15 tablet by ity of tablet 00:00: mouth [place] 00 every Medical morning. Branch levothyroxi 2020-12 Yes [id number] 200ug Take 1 [facility] ne 200 mcg 0-15 tablet by ity of tablet 00:00: mouth [place] 00 every Medical morning. Branch levothyroxi 2020-12 Yes [id number] 200ug Take 1 [facility] ne 200 mcg 0-15 tablet by ity of tablet 00:00: mouth [place] 00 every Medical morning. Branch levothyroxi 2020-12 Yes [id number] 200ug Take 1 [facility] ne 200 mcg 0-15 tablet by ity of tablet 00:00: mouth [place] 00 every Medical morning. Branch levothyroxi 2020-12 Yes [id number] 200ug Take 1 [facility] ne 200 mcg 0-15 tablet by ity of tablet 00:00: mouth [place] 00 every Medical morning. Branch levothyroxi 2020-12 Yes [id number] 200ug Take 1 [facility] ne 200 mcg 0-15 tablet by ity of tablet 00:00: mouth [place] 00 every Medical morning. Branch levothyroxi 2020-12 Yes [id number] 200ug Take 1 [facility] ne 200 mcg 0-15 tablet by ity of tablet 00:00: mouth [place] 00 every Medical morning. Branch acetaZOLAMI Yes [id number] 500mg Take 2 [facility] [place] 250 mg 6-03 tablets by ity of tablet 00:00: mouth 2 [place] 00 (two) Medical times Branch daily. acetaZOLAMI 2021-0 Yes [id number] 500mg Take 2 [facility] [place] 250 mg 6-03 tablets by ity of tablet 00:00: mouth [address] [place] [address] (two) Medical times Branch daily. acetaZOLAMI 2020-0 Yes [id number] 500mg Take 2 [facility] [place] 250 mg 6-03 tablets by ity of tablet 00:00: mouth [address] [place] [address] (two) Medical times Branch daily. acetaZOLAMI 2020-0 Yes [id number] 500mg Take 2 [facility] [place] 250 mg 6-03 tablets by ity of tablet 00:00: mouth [address] [place] [address] (two) Medical times Branch daily. acetaZOLAMI 2020-0 Yes [id number] 500mg Take 2 [facility] [place] 250 mg 6-03 tablets by ity of tablet 00:00: mouth [address] [place] [address] (two) Medical times Branch daily. acetaZOLAMI 2020-0 Yes [id number] 500mg Take 2 [facility] [place] 250 mg 6-03 tablets by ity of tablet 00:00: mouth [address] [place] [address] (two) Medical times Branch daily. acetaZOLAMI 2020-0 Yes [id number] 500mg Take 2 [facility] [place] 250 mg 6-03 tablets by ity of tablet 00:00: mouth [address] [place] [address] (two) Medical times Branch daily. acetaZOLAMI 2020-0 Yes [id number] 500mg Take 2 [facility] [place] 250 mg 6-03 tablets by ity of tablet 00:00: mouth [address] [place] [address] (two) Medical times Branch daily. acetaZOLAMI 2020-0 Yes [id number] 500mg Take 2 [facility] [place] 250 mg 6-03 tablets by ity of tablet 00:00: mouth [address] [place] [address] (two) Medical times Branch daily. acetaZOLAMI 2020-0 Yes [id number] 500mg Take 2 [facility] [place] 250 mg 6-03 tablets by ity of tablet 00:00: mouth [address] [place] [address] (two) Medical times Branch daily. acetaZOLAMI 2020-0 Yes [id number] 500mg Take 2 [facility] [place] 250 mg 6-03 tablets by ity of tablet 00:00: mouth [address] [place] [address] (two) Medical times Branch daily. acetaZOLAMI 2020-0 Yes [id number] 500mg Take 2 [facility] [place] 250 mg 6-03 tablets by ity of tablet 00:00: mouth [address] [place] [address] (two) Medical times Branch daily. acetaZOLAMI 2020-0 Yes [id number] 500mg Take 2 [facility] [place] 250 mg 6-03 tablets by ity of tablet 00:00: mouth 2 [place] (two) Medical times Branch daily. acetaZOLAMI Yes [id number] 500mg Take 2 [facility] [place] 250 mg 6-03 tablets by ity of tablet 00:00: mouth 2 [place] (two) Medical times Branch daily. acetaZOLAMI 2020-0 Yes [id number] 500mg Take 2 [facility] [place] 250 mg 6-03 tablets by ity of tablet 00:00: mouth 2 [place] (two) Medical times Branch daily. Cyclobenzap 2020-0 Yes 10 mg, PO, Memoria rine 9 TID, PRN l hydrochlori 05:17: Muscle Herm shaji de 10 MG 00 Spasm, X 5 Oral Tablet day, # 15 [Flexeril] tab, 0 Refill(s) Cyclobenzap 2020-0 Yes 10 mg, PO, [facility] rine 08-09 TID, PRN l hydrochlori 05:17: Muscle Herm shaji de 10 MG 00 Spasm, X 5 Oral Tablet day, # 15 [Flexeril] tab, 0 Refill(s) Cyclobenzap 2020-0 Yes 10 mg, PO, [facility] rine 08-09 TID, PRN l hydrochlori 05:17: Muscle Herm shaji de 10 MG 00 Spasm, X 5 Oral Tablet day, # 15 [Flexeril] tab, 0 Refill(s) Cyclobenzap 2020-0 Yes 10 mg, PO, [facility]oria rine 08-09 TID, PRN l hydrochlori 05:17: Muscle Herm shaji de 10 MG 00 Spasm, X 5 Oral Tablet day, # 15 [Flexeril] tab, 0 Refill(s) Cyclobenzap 2020-0 Yes 10 mg, PO, Memoria rine 08-09 TID, PRN l hydrochlori 05:17: Muscle Herm shaji de 10 MG 00 Spasm, X 5 Oral Tablet day, # 15 [Flexeril] tab, 0 Refill(s) Cyclobenzap 2020-0 Yes 10 mg, PO, Memoria rine - TID, PRN l hydrochlori 05:17: Muscle Herm shaji de 10 MG 00 Spasm, X 5 Oral Tablet day, # 15 [Flexeril] tab, 0 Refill(s) Cyclobenzap 2020-0 Yes 10 mg, PO, Memoria rine 08-09 TID, PRN l hydrochlori 05:17: Muscle Herm shaji de 10 MG 00 Spasm, X 5 Oral Tablet day, # 15 [Flexeril] tab, 0 Refill(s) Cyclobenzap Yes 10 mg, PO, Memoria rine 9- TID, PRN l hydrochlori 05:17: Muscle Herm shaji de 10 MG 00 Spasm, X 5 Oral Tablet day, # 15 [Flexeril] tab, 0 Refill(s) Saline No Notes: [facility] Flush 0.9% 08-09 (Same as: l 03:20: BD [place] 00 Posiflush) Saline No Notes: [facility] Flush 0.9% 9- (Same as: l 03:20: BD [place] 00 Posiflush) Saline No Notes: [facility] Flush 0.9% 9 (Same as: l 03:20: BD [place] 00 Posiflush) Saline No Notes: [facility] Flush 0.9% 9- (Same as: l 03:20: BD [place] 00 Posiflush) Saline No Notes: [facility] Flush 0.9% 9- (Same as: l 03:20: BD [place] 00 Posiflush) Saline No Notes: [facility] Flush 0.9% 9- (Same as: l 03:20: BD [place] 00 Posiflush) Saline No Notes: [facility] Flush 0.9% 9- (Same as: l 03:20: BD [place] 00 Posiflush) Saline No Notes: [facility] Flush 0.9% 08-09 (Same as: l 03:20: BD [place] 00 Posiflush) Levothyroxi Levothyroxi Yes GISELLE QD TAKE 1 [place] ne Sodium ne Sodium 07-09 [place] TABLET BY [facility] 100 MCG 100 MCG 09:49: M.D. MOUTH ans Oral Tablet Oral Tablet 29 DAILY DIRECTED. Acetaminoph Yes 1 tab, PO, Memoria en 325 MG / 6-24 Q4H, l butalbital 21:24: Headache, [place] r[place] 50 MG / 00 # 30 tab, Caffeine 40 0 MG Oral Refill(s) Tablet [Fioricet] Acetaminoph Yes 1 tab, PO, [facility] en 325 MG / 6-24 Q4H, l butalbital 21:24: Headache, [place] 50 MG / 00 # 30 tab, Caffeine 40 0 MG Oral Refill(s) Tablet [Fioricet] Acetaminoph Yes 1 tab, PO, [facility] en 325 MG / 6-24 Q4H, l butalbital 21:24: Headache, [place] 50 MG / 00 # 30 tab, Caffeine 40 0 MG Oral Refill(s) Tablet [Fioricet] Acetaminoph Yes 1 tab, PO, [facility]oria en 325 MG / 6-24 Q4H, l butalbital 21:24: Headache, [place] 50 MG / 00 # 30 tab, Caffeine 40 0 MG Oral Refill(s) Tablet [Fioricet] Acetaminoph Yes 1 tab, PO, [facility] en 325 MG / 6-24 Q4H, l butalbital 21:24: Headache, [place] 50 MG / 00 # 30 tab, Caffeine 40 0 MG Oral Refill(s) Tablet [Fioricet] Acetaminoph Yes 1 tab, PO, [facility] en 325 MG / 6-24 Q4H, l butalbital 21:24: Headache, [place] 50 MG / 00 # 30 tab, Caffeine 40 0 MG Oral Refill(s) Tablet [Fioricet] Acetaminoph Yes 1 tab, PO, [facility] en 325 MG / 6-24 Q4H, l butalbital 21:24: Headache, [place] 50 MG / 00 # 30 tab, Caffeine 40 0 MG Oral Refill(s) Tablet [Fioricet] Acetaminoph Yes 1 tab, PO, [facility] en 325 MG / 6-24 Q4H, l butalbital 21:24: Headache, [place] 50 MG / 00 # 30 tab, Caffeine 40 0 MG Oral Refill(s) Tablet [Fioricet] NS 1000 mL No Special [place] 6-24 Instructio l 21:13: ns: [place]us [place] 00 Dose NS 1000 mL No Special [place] 6-24 Instructio l 21:13: ns: Bolus [place] 00 Dose NS 1000 mL No Special [place] 6-24 Instructio l 21:13: ns: Bolus [place] 00 Dose NS 1000 mL No Special [place] 6-24 Instructio l 21:13: ns: Bolus [place] 00 Dose NS 1000 mL No Special [place] 6-24 Instructio l 21:13: ns: Bolus [place] 00 Dose NS 1000 mL No Special [place] 6-24 Instructio l 21:13: ns: Bolus [place] 00 Dose NS 1000 mL No Special [place] 6-24 Instructio l 21:13: ns: Bolus [place] 00 Dose NS 1000 mL No Special [place] 6-24 Instructio l 21:13: ns: [place] 00 Dose Morphine 2013-0 No 4 mg, Memoria 6-24 Route: l 20:27: IVP, Drug [place] 00 form: INJ, ONCE, Dosing Weight 78.182, kg, Priority: STAT, Start date: 05/24/14 15:27:00, Stop date: 05/24/14 15:27:00 Morphine 2013-0 No 4 mg, [facility] 6-24 Route: l 20:27: IVP, Drug [place] 00 form: INJ, ONCE, Dosing Weight 78.182, kg, Priority: STAT, Start date: 05/24/14 15:27:00, Stop date: 05/24/14 15:27:00 Morphine 2013-0 No 4 mg, [facility] 6-24 Route: l 20:27: IVP, Drug [place] 00 form: INJ, ONCE, Dosing Weight 78.182, kg, Priority: STAT, Start date: 05/24/14 15:27:00, Stop date: 05/24/14 15:27:00 Morphine 2013-0 No 4 mg, [facility] 6-24 Route: l 20:27: IVP, Drug [place] 00 form: INJ, ONCE, Dosing Weight 78.182, kg, Priority: STAT, Start date: 05/24/14 15:27:00, Stop date: 05/24/14 15:27:00 Morphine 2013-0 No 4 mg, [facility] 6-24 Route: l 20:27: IVP, Drug [place] 00 form: INJ, ONCE, Dosing Weight 78.182, kg, Priority: STAT, Start date: 05/24/14 15:27:00, Stop date: 05/24/14 15:27:00 Morphine 2014-0 No 4 mg, [facility] 6-24 Route: l 20:27: IVP, Drug [place] 00 form: INJ, ONCE, Dosing Weight 78.182, kg, Priority: STAT, Start date: 05/24/14 15:27:00, Stop date: 05/24/14 15:27:00 Morphine 2014-0 No 4 mg, [facility] 6-24 Route: l 20:27: IVP, Drug [place] 00 form: INJ, ONCE, Dosing Weight 78.182, kg, Priority: STAT, Start date: 05/24/14 15:27:00, Stop date: 05/24/14 15:27:00 Morphine 2014-0 No 4 mg, [facility] 6-24 Route: l 20:27: IVP, Drug [place] 00 form: INJ, ONCE, Dosing Weight 78.182, kg, Priority: STAT, Start date: 05/24/14 15:27:00, Stop date: 05/24/14 15:27:00 Zofran 2014-0 No 4 mg, [facility] 6-24 Route: l 19:21: IVP, Drug [place] 00 form: INJ, ONCE, Dosing Weight 78.182, kg, Priority: STAT, Start date: 05/24/14 14:21:00, Stop date: 05/24/14 14:21:00 Zofran 2014-0 No 4 mg, [facility] 6-24 Route: l 19:21: IVP, Drug [place] 00 form: INJ, ONCE, Dosing Weight 78.182, kg, Priority: STAT, Start date: 05/24/14 14:21:00, Stop date: 05/24/14 14:21:00 Zofran 2014-0 No 4 mg, [facility] 6-24 Route: l 19:21: IVP, Drug [place] 00 form: INJ, ONCE, Dosing Weight 78.182, kg, Priority: STAT, Start date: 05/24/14 14:21:00, Stop date: 05/24/14 14:21:00 Zofran 2014-0 No 4 mg, [facility] 6-24 Route: l 19:21: IVP, Drug [place] 00 form: INJ, ONCE, Dosing Weight 78.182, kg, Priority: STAT, Start date: 05/24/14 14:21:00, Stop date: 05/24/14 14:21:00 Zofran 2014-0 No 4 mg, [facility] 6-24 Route: l 19:21: IVP, Drug [place] 00 form: INJ, ONCE, Dosing Weight 78.182, kg, Priority: STAT, Start date: 05/24/14 14:21:00, Stop date: 05/24/14 14:21:00 Zofran 2014-0 No 4 mg, [facility] 6-24 Route: l 19:21: IVP, Drug [place] 00 form: INJ, ONCE, Dosing Weight 78.182, kg, Priority: STAT, Start date: 05/24/14 14:21:00, Stop date: 05/24/14 14:21:00 Zofran 2014-0 No 4 mg, [facility] 6-24 Route: l 19:21: IVP, Drug [place] 00 form: INJ, ONCE, Dosing Weight 78.182, kg, Priority: STAT, Start date: 05/24/14 14:21:00, Stop date: 05/24/14 14:21:00 Zofran 2014-0 No 4 mg, [facility] 6-24 Route: l 19:21: IVP, Drug [place] 00 form: INJ, ONCE, Dosing Weight 78.182, kg, Priority: STAT, Start date: 05/24/14 14:21:00, Stop date: 05/24/14 14:21:00 Reglan 2014-0 No 20 mg, [facility] 6-24 Route: l 19:20: IVP, Drug [place] 00 form: INJ, ONCE, Dosing Weight 78.182, kg, Priority: STAT, Start date: 05/24/14 14:20:00, Stop date: 05/24/14 14:20:00 Reglan 2014-0 No 20 mg, [facility] 6-24 Route: l 19:20: IVP, Drug [place] 00 form: INJ, ONCE, Dosing Weight 78.182, kg, Priority: STAT, Start date: 05/24/14 14:20:00, Stop date: 05/24/14 14:20:00 Reglan 2014-0 No 20 mg, [facility] 6-24 Route: l 19:20: IVP, Drug [place] 00 form: INJ, ONCE, Dosing Weight 78.182, kg, Priority: STAT, Start date: 05/24/14 14:20:00, Stop date: 05/24/14 14:20:00 Reglan 2014-0 No 20 mg, [facility] 6-24 Route: l 19:20: IVP, Drug [place] 00 form: INJ, ONCE, Dosing Weight 78.182, kg, Priority: STAT, Start date: 05/24/14 14:20:00, Stop date: 05/24/14 14:20:00 Reglan 2014-0 No 20 mg, [facility] 6-24 Route: l 19:20: IVP, Drug [place] 00 form: INJ, ONCE, Dosing Weight 78.182, kg, Priority: STAT, Start date: 05/24/14 14:20:00, Stop date: 05/24/14 14:20:00 Reglan 2014-0 No 20 mg, [facility] 6-24 Route: l 19:20: IVP, Drug [place] 00 form: INJ, ONCE, Dosing Weight 78.182, kg, Priority: STAT, Start date: 05/24/14 14:20:00, Stop date: 05/24/14 14:20:00 Reglan 2014-0 No 20 mg, [facility] 6-24 Route: l 19:20: IVP, Drug [place] 00 form: INJ, ONCE, Dosing Weight 78.182, kg, Priority: STAT, Start date: 05/24/14 14:20:00, Stop date: 05/24/14 14:20:00 Reglan 2014-0 No 20 mg, [facility] 6-24 Route: l 19:20: IVP, Drug [place] 00 form: INJ, ONCE, Dosing Weight 78.182, kg, Priority: STAT, Start date: 05/24/14 14:20:00, Stop date: 05/24/14 14:20:00 Immunizations Ordered Immunization Filled Immunization Date Status Commen ts Source Name Name TDAP 2021-02-07 Completed [facility] 00:00:00 [facility] TDAP 2021-02-07 Completed [facility] of 00:00:00 [facility] TDAP 2021-02-07 Completed University of 00:00:00 [facility] TDAP 2021-02-07 Completed [facility] of 00:00:00 [place] [facility] TDAP 2021-02-07 Completed [facility] of 00:00:00 [place] [facility] TDAP 2021-02-07 Completed [facility] of 00:00:00 [place] [facility] TDAP 2021-02-07 Completed [facility] of 00:00:00 [place] [facility] TDAP 2021-02-07 Completed [facility] of 00:00:00 [place] [facility] TDAP 2021-02-07 Completed [facility] of 00:00:00 [place] [facility] TDAP 2021-02-07 Completed [facility] of 00:00:00 [place] [facility] TDAP 2021-02-07 Completed [facility] of 00:00:00 [place] [facility] TDAP 2021-02-07 Completed University of 00:00:00 [place] [facility] TDAP 2021-02-07 Completed [facility] of 00:00:00 [place] [facility] TDAP 2021-02-07 Completed [facility] of 00:00:00 [place] [facility] TDAP 2021-02-07 Completed University of 00:00:00 [facility] TDAP (ADACEL) VACCINE 2019-08-26 Completed Uni versity of 00:00:00 [facility] Influenza Virus 2019-08-26 Completed Universit y of Vaccine Quad .5 mL IM 00:00:00 [facility] 6+ [facility] TDAP (ADACEL) VACCINE 2019-08-26 Completed Uni versity of 00:00:00 [facility] Influenza Virus 2019-08-26 Completed Universit y of Vaccine [facility] .5 mL IM 00:00:00 [facility] 6[facility] TDAP (ADACEL) VACCINE 2019-08-26 Completed Uni versity of 00:00:00 [facility] Influenza Virus 2019-08-26 Completed Universit y of Vaccine [place] .5 mL IM 00:00:00 [facility] 6[facility] TDAP (ADACEL) VACCINE 2019-08-26 Completed Uni versity of 00:00:00 [facility] Influenza Virus 2019-08-26 Completed Universit y of Vaccine Quad .5 mL IM 00:00:00 [facility] 6[facility] TDAP (ADACEL) VACCINE 2019-08-26 Completed Uni versity of 00:00:00 [facility] Influenza Virus 2019-08-26 Completed Universit y of Vaccine Quad .5 mL IM 00:00:00 [facility] 6[facility] TDAP (ADACEL) VACCINE 2019-08-26 Completed Uni versity of 00:00:00 [facility] Influenza Virus 2019-08-26 Completed Universit y of Vaccine Quad .5 mL IM 00:00:00 [facility] 6[facility] TDAP (ADACEL) VACCINE 2019-08-26 Completed Uni versity of 00:00:00 [facility] Influenza Virus 2019-08-26 Completed Universit y of Vaccine [place] .5 mL IM 00:00:00 [facility] 6+ [facility] TDAP (ADACEL) VACCINE 2019-08-26 Completed Uni versity of 00:00:00 [facility] Influenza Virus 2019-08-26 Completed Universit y of Vaccine [place] .5 mL IM 00:00:00 [facility] 6[facility] TDAP (ADACEL) VACCINE 2019-08-26 Completed Uni versity of 00:00:00 [facility] Influenza Virus 2019-08-26 Completed Universit y of Vaccine [place] .5 mL IM 00:00:00 [facility] 6[facility] TDAP (ADACEL) VACCINE 2019-08-26 Completed Uni versity of 00:00:00 [facility] Influenza Virus 2019-08-26 Completed Universit y of Vaccine [place] .5 mL IM 00:00:00 [facility] 6[facility] TDAP (ADACEL) VACCINE 2019-08-26 Completed Uni versity of 00:00:00 [facility] Influenza Virus 2019-08-26 Completed Universit y of Vaccine [place] .5 mL IM 00:00:00 [facility] 6[facility] TDAP (ADACEL) VACCINE 2019-08-26 Completed Uni versity of 00:00:00 [facility] Influenza Virus 2019-08-26 Completed Universit y of Vaccine [facility] .5 mL IM 00:00:00 [facility] 6[facility] TDAP (ADACEL) VACCINE 2019-08-26 Completed Uni versity of 00:00:00 [facility] Influenza Virus 2019-08-26 Completed Universit y of Vaccine [place] .5 mL IM 00:00:00 [facility] 6[facility] TDAP (ADACEL) VACCINE 2019-08-26 Completed Uni versity of 00:00:00 [facility] Influenza Virus 2019-08-26 Completed Universit y of Vaccine [facility] .5 mL IM 00:00:00 [facility] 6[facility] TDAP (ADACEL) VACCINE 2019-08-26 Completed Uni versity of 00:00:00 [facility] Influenza Virus 2019-08-26 Completed Universit y of Vaccine Quad .5 mL IM 00:00:00 [facility] 6+ MO [place] Influenza Virus 2016-09-23 Completed Universit y of Vaccine Quad IM 3+ 00:00:00 [facility] Influenza Virus 2016-09-23 Completed Universit y of Vaccine Quad IM 3+ 00:00:00 [facility] Influenza Virus 2016-09-23 Completed Universit y of Vaccine Quad IM 3+ 00:00:00 [facility] Influenza Virus 2016-09-23 Completed Universit y of Vaccine Quad IM 3+ 00:00:00 [facility] Influenza Virus 2016-09-23 Completed Universit y of Vaccine Quad IM 3+ 00:00:00 [facility] Influenza Virus 2016-09-23 Completed Universit y of Vaccine Quad IM 3+ 00:00:00 [facility] Influenza Virus 2016-09-23 Completed Universit y of Vaccine Quad IM 3+ 00:00:00 [facility] Influenza Virus 2016-09-23 Completed Universit y of Vaccine Quad IM 3+ 00:00:00 [facility] Influenza Virus 2016-09-23 Completed Universit y of Vaccine Quad IM 3+ 00:00:00 [facility] Influenza Virus 2016-09-23 Completed Universit y of Vaccine Quad IM 3+ 00:00:00 [facility] Influenza Virus 2016-09-23 Completed Universit y of Vaccine Quad IM 3+ 00:00:00 [facility] Influenza Virus 2016-09-23 Completed Universit y of Vaccine Quad IM 3+ 00:00:00 [facility] Influenza Virus 2016-09-23 Completed Universit y of Vaccine Quad IM 3+ 00:00:00 [facility] Influenza Virus 2016-09-23 Completed Universit y of Vaccine Quad IM 3+ 00:00:00 [facility] Influenza Virus 2016-09-23 Completed [facility] Vaccine Quad IM 3+ 00:00:00 [facility] Meningococcal 2009-05-09 Completed [facility] Polysaccharide 00:00:00 [place] [facility] (groups A, C, Y and Branc h W-135) conjugate vaccine (MCV4P) Meningococcal 2009-05-09 Completed [facility] Polysaccharide 00:00:00 [place] [facility] (groups A, C, Y and Branc h W-135) conjugate vaccine (MCV4P) Meningococcal 2009-05-09 Completed [facility] Polysaccharide 00:00:00 [place] [facility] (groups A, C, Y and Branc h W-135) conjugate vaccine (MCV4P) Meningococcal 2009-05-09 Completed [facility] Polysaccharide 00:00:00 [place] [facility] (groups A, C, Y and Branc h W-135) conjugate vaccine (MCV4P) Meningococcal 2009-05-09 Completed [facility] Polysaccharide 00:00:00 [place] [facility] (groups A, C, Y and Branc h W-135) conjugate vaccine (MCV4P) Meningococcal 2009-05-09 Completed [facility] Polysaccharide 00:00:00 [place] [facility] (groups A, C, Y and Branc h W-135) conjugate vaccine (MCV4P) Meningococcal 2009-05-09 Completed [facility] Polysaccharide 00:00:00 [place] [facility] (groups A, C, Y and Branc h W-135) conjugate vaccine (MCV4P) Meningococcal 2009-05-09 Completed [facility] Polysaccharide 00:00:00 [place] [facility] (groups A, C, Y and Branc h W-135) conjugate vaccine (MCV4P) Meningococcal 2009-05-09 Completed [facility] Polysaccharide 00:00:00 [place] [facility] (groups A, C, Y and Branc h W-135) conjugate vaccine (MCV4P) Meningococcal 2009-05-09 Completed [facility] Polysaccharide 00:00:00 [place] [facility] (groups A, C, Y and Branc h W-135) conjugate vaccine (MCV4P) Meningococcal 2009-05-09 Completed [facility] Polysaccharide 00:00:00 [place] [facility] (groups A, C, Y and Branc h W-135) conjugate vaccine (MCV4P) Meningococcal 2009-05-09 Completed [facility] Polysaccharide 00:00:00 [place] [facility] (groups A, C, Y and Branc h W-135) conjugate vaccine (MCV4P) Meningococcal 2009-05-09 Completed [facility] Polysaccharide 00:00:00 [place] [facility] (groups A, C, Y and Branc h W-135) conjugate vaccine (MCV4P) Meningococcal 2009-05-09 Completed [facility] Polysaccharide 00:00:00 [place] [facility] (groups A, C, Y and Branc h W-135) conjugate vaccine (MCV4P) Meningococcal 2009-05-09 Completed [facility] Polysaccharide 00:00:00 [place] [facility] (groups A, C, Y and Branc h W-135) conjugate vaccine (MCV4P) measles/mumps/rubella 2001-07-01 Completed [facility] virus vaccine 00:00:00 diphtheria/pertussis, 2001-07-01 Completed [facility] acel/tetanus ped 00:00:00 poliovirus vaccine, 2001-07-01 Completed [facility] [place] inactivated 00:00:00 measles/mumps/rubella 2001-07-01 Completed [facility] [place] virus vaccine 00:00:00 diphtheria/pertussis, 2001-07-01 Completed [facility] acel/tetanus ped 00:00:00 poliovirus vaccine, 2001-07-01 Completed [facility] inactivated 00:00:00 measles/mumps/rubella 2001-07-01 Completed [facility] [place] virus vaccine 00:00:00 diphtheria/pertussis, 2001-07-01 Completed [facility] [place] acel/tetanus ped 00:00:00 poliovirus vaccine, 2001-07-01 Completed [facility] [place] inactivated 00:00:00 measles/mumps/rubella 2001-07-01 Completed [facility] [place] virus vaccine 00:00:00 diphtheria/pertussis, 2001-07-01 Completed [facility] [place] acel/tetanus ped 00:00:00 poliovirus vaccine, 2001-07-01 Completed [facility] [place] inactivated 00:00:00 measles/mumps/rubella 2001-07-01 Completed [facility] [place] virus vaccine 00:00:00 diphtheria/pertussis, 2001-07-01 Completed [facility] acel/tetanus ped 00:00:00 poliovirus vaccine, 2001-07-01 Completed [facility] [place] inactivated 00:00:00 measles/mumps/rubella 2001-07-01 Completed [facility] [place] virus vaccine 00:00:00 diphtheria/pertussis, 2001-07-01 Completed [facility] acel/tetanus ped 00:00:00 poliovirus vaccine, 2001-07-01 Completed [facility] [place] inactivated 00:00:00 measles/mumps/rubella 2001-07-01 Completed [facility] [place] virus vaccine 00:00:00 diphtheria/pertussis, 2001-07-01 Completed [facility] [place] acel/tetanus ped 00:00:00 poliovirus vaccine, 2001-07-01 Completed Memjab[facility] inactivated 00:00:00 TDAP 2001-07-01 Completed [facility] 00:00:00 [facility] MMR 2001-07-01 Completed [facility] 00:00:00 [facility] Polio (IPV/OPV) 2001-07-01 Completed [facility] 00:00:00 [facility] TDAP 2001-07-01 Completed [facility] 00:00:00 [facility] MMR 2001-07-01 Completed [facility] 00:00:00 [facility] Polio (IPV/OPV) 2001-07-01 Completed [facility] 00:00:00 [facility] TDAP 2001-07-01 Completed [facility] 00:00:00 [facility] MMR 2001-07-01 Completed [facility] 00:00:00 [facility] Polio (IPV/OPV) 2001-07-01 Completed [facility] 00:00:00 [facility] TDAP 2001-07-01 Completed [facility] 00:00:00 [facility] MMR 2001-07-01 Completed [facility] 00:00:00 [facility] Polio (IPV/OPV) 2001-07-01 Completed [facility] 00:00:00 [facility] TDAP 2001-07-01 Completed [facility] 00:00:00 [facility] MMR 2001-07-01 Completed [facility] 00:00:00 [facility] Polio (IPV/OPV) 2001-07-01 Completed [facility] 00:00:00 [facility] TDAP 2001-07-01 Completed [facility] 00:00:00 [facility] MMR 2001-07-01 Completed [facility] 00:00:00 [facility] Polio (IPV/OPV) 2001-07-01 Completed [facility] 00:00:00 [facility] TDAP 2001-07-01 Completed [facility] 00:00:00 [facility] MMR 2001-07-01 Completed [facility] 00:00:00 [facility] Polio (IPV/OPV) 2001-07-01 Completed [facility] 00:00:00 [facility] TDAP 2001-07-01 Completed [facility] 00:00:00 [facility] MMR 2001-07-01 Completed [facility] 00:00:00 [facility] Polio (IPV/OPV) 2001-07-01 Completed [facility] 00:00:00 [facility] TDAP 2001-07-01 Completed [facility] 00:00:00 [facility] MMR 2001-07-01 Completed [facility] 00:00:00 [facility] Polio (IPV/OPV) 2001-07-01 Completed [facility] 00:00:00 [facility] TDAP 2001-07-01 Completed [facility] 00:00:00 [facility] MMR 2001-07-01 Completed [facility] 00:00:00 [facility] Polio (IPV/OPV) 2001-07-01 Completed [facility] 00:00:00 [facility] TDAP 2001-07-01 Completed [facility] 00:00:00 [facility] MMR 2001-07-01 Completed [facility] 00:00:00 [facility] Polio (IPV/OPV) 2001-07-01 Completed [facility] 00:00:00 [facility] TDAP 2001-07-01 Completed [facility] 00:00:00 [facility] MMR 2001-07-01 Completed [facility] of 00:00:00 [facility] Polio (IPV/OPV) 2001-07-01 Completed [facility] 00:00:00 [facility] TDAP 2001-07-01 Completed [facility] of 00:00:00 [facility] MMR 2001-07-01 Completed [facility] of 00:00:00 [facility] Polio (IPV/OPV) 2001-07-01 Completed [facility] 00:00:00 [facility] TDAP 2001-07-01 Completed [facility] 00:00:00 [facility] MMR 2001-07-01 Completed [facility] 00:00:00 [facility] Polio (IPV/OPV) 2001-07-01 Completed [facility] 00:00:00 [facility] TDAP 2001-07-01 Completed [facility] 00:00:00 [facility] MMR 2001-07-01 Completed [facility] of 00:00:00 [facility] Polio (IPV/OPV) 2001-07-01 Completed [facility] 00:00:00 [facility] measles/mumps/rubella 2001-07-01 Completed [facility] [place] virus vaccine 00:00:00 diphtheria/pertussis, 2001-07-01 Completed [facility] [place] acel/tetanus ped 00:00:00 poliovirus vaccine, 2001-07-01 Completed Ekaterinaor lamar Sharpann inactivated 00:00:00 Varicella 1999-04-08 Completed [facility] (varivax)(chicken 00:00:00 [place] [facility] Varicella 1999-04-08 Completed [facility] (varivax)(chicken 00:00:00 [place] [facility] Varicella 1999-04-08 Completed [facility] (varivax)(chicken 00:00:00 [place] [facility] Varicella 1999-04-08 Completed [facility] (varivax)(chicken 00:00:00 [place] [facility] Varicella 1999-04-08 Completed [facility] (varivax)(chicken 00:00:00 [place] [facility] Varicella 1999-04-08 Completed [facility] (varivax)(chicken 00:00:00 [place] [facility] pox[facility] Varicella 1999-04-08 Completed [facility] (varivax)(chicken 00:00:00 [place] [facility] Varicella 1999-04-08 Completed [facility] (varivax)(chicken 00:00:00 [place] [facility] pox[facility] Varicella 1999-04-08 Completed [facility] (varivax)(chicken 00:00:00 [place] [facility] Varicella 1999-04-08 Completed [facility] (varivax)(chicken 00:00:00 [place] [facility] Varicella 1999-04-08 Completed [facility] (varivax)(chicken 00:00:00 [place] [facility] Varicella 1999-04-08 Completed [facility] (varivax)(chicken 00:00:00 [place] [facility] pox[facility] Varicella 1999-04-08 Completed [facility] (varivax)(chicken 00:00:00 [place] [facility] Varicella 1999-04-08 Completed [facility] (varivax)(chicken 00:00:00 [place] [facility] Varicella 1999-04-08 Completed [facility] (varivax)(chicken 00:00:00 [place] [facility] measles/mumps/rubella 1998-06-14 Completed [facility] orinabila Cervantes virus vaccine 00:00:00 haemophilus b 1998-06-14 [facility] vaccine diphtheria/pertussis, 1998-06-14 Completed [facility] [place] acel/tetanus ped 00:00:00 measles/mumps/rubella 1998-06-14 Completed [facility] [place] virus vaccine 00:00:00 haemophilus b 1998-06-[address] [facility] rmann conjugate (PRP-T) 00:00:00 vaccine diphtheria/pertussis, 1998-06-14 Completed [facility] [place] acel/tetanus ped 00:00:00 measles/mumps/rubella 1998-06-14 Completed [facility] [place] virus vaccine 00:00:00 haemophilus b 1998-06-[address] [facility] rmann conjugate (PRP-T) 00:00:00 vaccine diphtheria/pertussis, 1998-06-14 Completed [facility] [place] acel/tetanus ped 00:00:00 measles/mumps/rubella 1998-06-14 Completed [facility] [place] virus vaccine 00:00:00 haemophilus b 1998-06-[address] [facility] rmann conjugate (PRP-T) 00:00:00 vaccine diphtheria/pertussis, 1998-06-14 Completed [facility] [place] acel/tetanus ped 00:00:00 measles/mumps/rubella 1998-06-14 Completed [facility] [place] virus vaccine 00:00:00 haemophilus b 1998-06-[address] [facility] rmann conjugate (PRP-T) 00:00:00 vaccine diphtheria/pertussis, 1998-06-14 Completed [facility] [place] acel/tetanus ped 00:00:00 measles/mumps/rubella 1998-06-14 Completed [facility] [place] virus vaccine 00:00:00 haemophilus b 1998-06-[address] [facility] rmann conjugate (PRP-T) 00:00:00 vaccine diphtheria/pertussis, 1998-06-14 Completed [facility] [place] acel/tetanus ped 00:00:00 measles/mumps/rubella 1998-06-14 Completed [facility] [place] virus vaccine 00:00:00 haemophilus b 1998-06-[address] [facility] rmann conjugate (PRP-T) 00:00:00 vaccine diphtheria/pertussis, 1998-06-14 Completed [facility] [place] acel/tetanus ped 00:00:00 TDAP 1998-06-14 Completed [facility] 00:00:00 [facility] HIB 4 Dose Schedule 1998-06-14 Completed Unive rsity of 00:00:00 [place] [facility] MMR 1998-06-14 Completed [facility] 00:00:00 [place] [facility] TDAP 1998-06-14 Completed [facility] 00:00:00 [facility] HIB 4 Dose Schedule 1998-06-14 Completed Unive rsity of 00:00:00 [place] [facility] MMR 1998-06-14 Completed [facility] 00:00:00 [facility] TDAP 1998-06-14 Completed [facility] 00:00:00 [facility] HIB 4 Dose Schedule 1998-06-14 Completed Unive rsity of 00:00:00 [facility] MMR 1998-06-14 Completed [facility] 00:00:00 [facility] TDAP 1998-06-14 Completed [facility] 00:00:00 [facility] HIB 4 Dose Schedule 1998-06-14 Completed Unive rsity of 00:00:00 [facility] MMR 1998-06-14 Completed [facility] 00:00:00 [facility] TDAP 1998-06-14 Completed [facility] 00:00:00 [facility] HIB 4 Dose Schedule 1998-06-14 Completed Unive rsity of 00:00:00 [facility] MMR 1998-06-14 Completed [facility] 00:00:00 [facility] TDAP 1998-06-14 Completed [facility] 00:00:00 [facility] HIB 4 Dose Schedule 1998-06-14 Completed Unive rsity of 00:00:00 [facility] MMR 1998-06-14 Completed [facility] 00:00:00 [facility] TDAP 1998-06-14 Completed [facility] 00:00:00 [facility] HIB 4 Dose Schedule 1998-06-14 Completed Unive rsity of 00:00:00 [facility] MMR 1998-06-14 Completed [facility] 00:00:00 [facility] TDAP 1998-06-14 Completed [facility] 00:00:00 [facility] HIB 4 Dose Schedule 1998-06-14 Completed Unive rsity of 00:00:00 [facility] MMR 1998-06-14 Completed [facility] 00:00:00 [facility] TDAP 1998-06-14 Completed [facility] 00:00:00 [facility] HIB 4 Dose Schedule 1998-06-14 Completed Unive rsity of 00:00:00 [facility] MMR 1998-06-14 Completed [facility] 00:00:00 [facility] TDAP 1998-06-14 Completed [facility] 00:00:00 [facility] HIB 4 Dose Schedule 1998-06-14 Completed Unive rsity of 00:00:00 [facility] MMR 1998-06-14 Completed [facility] of 00:00:00 [facility] TDAP 1998-06-14 Completed [facility] 00:00:00 [facility] HIB 4 Dose Schedule 1998-06-14 Completed Unive rsity of 00:00:00 [facility] MMR 1998-06-14 Completed [facility] 00:00:00 [facility] TDAP 1998-06-14 Completed [facility] 00:00:00 [facility] HIB 4 Dose Schedule 1998-06-14 Completed Unive rsity of 00:00:00 [facility] MMR 1998-06-14 Completed [facility] 00:00:00 [facility] TDAP 1998-06-14 Completed [facility] 00:00:00 [facility] HIB 4 Dose Schedule 1998-06-14 Completed Unive rsity of 00:00:00 [facility] MMR 1998-06-14 Completed [facility] 00:00:00 [facility] TDAP 1998-06-14 Completed [facility] 00:00:00 [facility] HIB 4 Dose Schedule 1998-06-14 Completed Unive rsity of 00:00:00 [facility] MMR 1998-06-14 Completed [facility] of 00:00:00 [facility] TDAP 1998-06-14 Completed [facility] 00:00:00 [facility] HIB 4 Dose Schedule 1998-06-14 Completed Unive rsity of 00:00:00 [facility] MMR 1998-06-14 Completed [facility] 00:00:00 [facility] measles/mumps/rubella 1998-06-14 Completed [facility] [place] virus vaccine 00:00:00 haemophilus b 1998-06-14 Completed [facility] conjugate (PRP-T) 00:00:00 vaccine diphtheria/pertussis, 1998-06-14 Completed [facility] [place] acel/tetanus ped 00:00:00 haemophilus b 1998-03-29 Completed [facility] conjugate (PRP-T) 00:00:00 vaccine hepatitis B pediatric 1998-03-29 Completed [facility] vaccine 00:00:00 Hx poliovirus 1998-03-29 Completed [facility] vaccine-unspecified 00:00:00 diphtheria/pertussis, 1998-03-29 Completed [facility] [place] acel/tetanus ped 00:00:00 haemophilus b 1998-03-29 Completed [facility] conjugate (PRP-T) 00:00:00 vaccine hepatitis B pediatric 1998-03-29 Completed [facility] [place] vaccine 00:00:00 Hx poliovirus 1998-03-29 Completed [facility] vaccine-unspecified 00:00:00 diphtheria/pertussis, 1998-03-29 Completed [facility] [place] acel/tetanus ped 00:00:00 haemophilus b 1998-03-29 Completed [facility] conjugate (PRP-T) 00:00:00 vaccine hepatitis B pediatric 1998-03-29 Completed [facility] [place] vaccine 00:00:00 Hx poliovirus 1998-03-29 Completed [facility] vaccine-unspecified 00:00:00 diphtheria/pertussis, 1998-03-29 Completed [facility] [place] acel/tetanus ped 00:00:00 haemophilus b 1998-03-29 Completed [facility] conjugate (PRP-T) 00:00:00 vaccine hepatitis B pediatric 1998-03-29 Completed [facility] [place] vaccine 00:00:00 Hx poliovirus 1998-03-29 Completed [facility] vaccine-unspecified 00:00:00 diphtheria/pertussis, 1998-03-29 Completed [facility] [place] acel/tetanus ped 00:00:00 haemophilus b 1998-03-29 Completed [facility] conjugate (PRP-T) 00:00:00 vaccine hepatitis B pediatric 1998-03-29 Completed [facility] [place] vaccine 00:00:00 Hx poliovirus 1998-03-29 Completed [facility] vaccine-unspecified 00:00:00 diphtheria/pertussis, 1998-03-29 Completed [facility] [place] acel/tetanus ped 00:00:00 haemophilus b 1998-03-29 Completed [facility] conjugate (PRP-T) 00:00:00 vaccine hepatitis B pediatric 1998-03-29 Completed [facility] [place] vaccine 00:00:00 Hx poliovirus 1998-03-29 Completed [facility] vaccine-unspecified 00:00:00 diphtheria/pertussis, 1998-03-29 Completed [facility] [place] acel/tetanus ped 00:00:00 haemophilus b 1998-03-29 Completed [facility] conjugate (PRP-T) 00:00:00 vaccine hepatitis B pediatric 1998-03-29 Completed [facility] orial [place] vaccine 00:00:00 Hx poliovirus 1998-03-29 Completed [facility] vaccine-unspecified 00:00:00 diphtheria/pertussis, 1998-03-29 Completed [facility] [place] acel/tetanus ped 00:00:00 TDAP 1998-03-29 Completed [facility] 00:00:00 [facility] HIB 4 Dose Schedule 1998-03-29 Completed Unive rsity of 00:00:00 [facility] Hep B, Adol or Pedi 1998-03-29 Completed Unive rsity of Dosage 00:00:00 [facility] Polio (IPV/OPV) 1998-03-29 Completed [facility] of 00:00:00 [facility] TDAP 1998-03-29 Completed [facility] 00:00:00 [facility] HIB 4 Dose Schedule 1998-03-29 Completed Unive rsity of 00:00:00 [facility] Hep B, Adol or Pedi 1998-03-29 Completed Unive rsity of Dosage 00:00:00 [facility] Polio (IPV/OPV) 1998-03-29 Completed [facility] of 00:00:00 [facility] TDAP 1998-03-29 Completed [facility] 00:00:00 [facility] HIB 4 Dose Schedule 1998-03-29 Completed Unive rsity of 00:00:00 [facility] Hep B, Adol or Pedi 1998-03-29 Completed Unive rsity of Dosage 00:00:00 [facility] Polio (IPV/OPV) 1998-03-29 Completed [facility] 00:00:00 [facility] TDAP 1998-03-29 Completed [facility] 00:00:00 [facility] HIB 4 Dose Schedule 1998-03-29 Completed Unive rsity of 00:00:00 [facility] Hep B, Adol or Pedi 1998-03-29 Completed Unive rsity of Dosage 00:00:00 [facility] Polio (IPV/OPV) 1998-03-29 Completed [facility] 00:00:00 [facility] TDAP 1998-03-29 Completed [facility] 00:00:00 [facility] HIB 4 Dose Schedule 1998-03-29 Completed Unive rsity of 00:00:00 [facility] Hep B, Adol or Pedi 1998-03-29 Completed Unive rsity of Dosage 00:00:00 [facility] Polio (IPV/OPV) 1998-03-29 Completed [facility] y of 00:00:00 [facility] TDAP 1998-03-29 Completed [facility] 00:00:00 [facility] HIB 4 Dose Schedule 1998-03-29 Completed Unive rsity of 00:00:00 [facility] Hep B, Adol or Pedi 1998-03-29 Completed Unive rsity of Dosage 00:00:00 [facility] Polio (IPV/OPV) 1998-03-29 Completed [facility] 00:00:00 [facility] TDAP 1998-03-29 Completed [facility] 00:00:00 [facility] HIB 4 Dose Schedule 1998-03-29 Completed Unive rsity of 00:00:00 [facility] Hep B, Adol or Pedi 1998-03-29 Completed Unive rsity of Dosage 00:00:00 [facility] Polio (IPV/OPV) 1998-03-29 Completed [facility] 00:00:00 [facility] TDAP 1998-03-29 Completed [facility] 00:00:00 [facility] HIB 4 Dose Schedule 1998-03-29 Completed Unive rsity of 00:00:00 [facility] Hep B, Adol or Pedi 1998-03-29 Completed Unive rsity of Dosage 00:00:00 [facility] Polio (IPV/OPV) 1998-03-29 Completed [facility] 00:00:00 [facility] TDAP 1998-03-29 Completed [facility] 00:00:00 [facility] HIB 4 Dose Schedule 1998-03-29 Completed Unive rsity of 00:00:00 [facility] Hep B, Adol or Pedi 1998-03-29 Completed Unive rsity of Dosage 00:00:00 [facility] Polio (IPV/OPV) 1998-03-29 Completed [facility] 00:00:00 [facility] TDAP 1998-03-29 Completed [facility] 00:00:00 [facility] HIB 4 Dose Schedule 1998-03-29 Completed Unive rsity of 00:00:00 [facility] Hep B, Adol or Pedi 1998-03-29 Completed Unive rsity of Dosage 00:00:00 [facility] Polio (IPV/OPV) 1998-03-29 Completed [facility] 00:00:00 [facility] TDAP 1998-03-29 Completed [facility] 00:00:00 [facility] HIB 4 Dose Schedule 1998-03-29 Completed [facility]ive rsity of 00:00:00 [facility] Hep B, Adol or Pedi 1998-03-29 Completed Unive rsity of Dosage 00:00:00 [facility] Polio (IPV/OPV) 1998-03-29 Completed [facility] 00:00:00 [facility] TDAP 1998-03-29 Completed [facility] 00:00:00 [facility] HIB 4 Dose Schedule 1998-03-29 Completed Unive rsity of 00:00:00 [facility] Hep B, Adol or Pedi 1998-03-29 Completed Unive rsity of Dosage 00:00:00 [facility] Polio (IPV/OPV) 1998-03-29 Completed [facility] 00:00:00 [facility] TDAP 1998-03-29 Completed [facility] 00:00:00 [facility] HIB 4 Dose Schedule 1998-03-29 Completed Unive rsity of 00:00:00 [facility] Hep B, Adol or Pedi 1998-03-29 Completed Unive rsity of Dosage 00:00:00 [facility] Polio (IPV/OPV) 1998-03-29 Completed [facility] 00:00:00 [facility] TDAP 1998-03-29 Completed [facility] 00:00:00 [facility] HIB 4 Dose Schedule 1998-03-29 Completed Unive rsity of 00:00:00 [facility] Hep B, Adol or Pedi 1998-03-29 Completed Unive rsity of Dosage 00:00:00 [facility] Polio (IPV/OPV) 1998-03-29 Completed [facility] 00:00:00 [facility] TDAP 1998-03-29 Completed [facility] 00:00:00 [facility] HIB 4 Dose Schedule 1998-03-29 Completed Unive rsity of 00:00:00 [facility] Hep B, Adol or Pedi 1998-03-29 Completed Unive rsity of Dosage 00:00:00 [facility] Polio (IPV/OPV) 1998-03-29 Completed [facility] 00:00:00 [facility] haemophilus b 1998-03-29 Completed [facility] conjugate (PRP-T) 00:00:00 vaccine hepatitis B pediatric 1998-03-29 Completed [facility] 00:00:00 Hx poliovirus 1998-03-29 [facility]pleted [facility] 00:00:00 diphtheria/pertussis, 1998-03-29 Completed [facility] acel/tetanus ped 00:00:00 haemophilus b 1997 Completed [facility] conjugate (PRP-T) 00:00:00 vaccine Hx poliovirus 1997 Completed [facility]-unspecified 00:00:00 diphtheria/pertussis, 1997 Completed [facility] acel/tetanus ped 00:00:00 haemophilus b 1997 Completed [facility] conjugate (PRP-T) 00:00:00 vaccine Hx poliovirus 1997 Completed [facility]-unspecified 00:00:00 diphtheria/pertussis, 1997 Completed [facility] [place] acel/tetanus ped 00:00:00 haemophilus b 1997 Completed [facility] conjugate (PRP-T) 00:00:00 vaccine Hx poliovirus 1997 Completed [facility]-unspecified 00:00:00 diphtheria/pertussis, 1997 Completed [facility] acel/tetanus ped 00:00:00 haemophilus b 1997 Completed [facility] conjugate (PRP-T) 00:00:00 vaccine Hx poliovirus 1997 Completed [facility]-unspecified 00:00:00 diphtheria/pertussis, 1997 Completed [facility] acel/tetanus ped 00:00:00 haemophilus b 1997 Completed [facility] conjugate (PRP-T) 00:00:00 vaccine Hx poliovirus 1997 Completed [facility]-unspecified 00:00:00 diphtheria/pertussis, 1997 Completed [facility] [place] acel/tetanus ped 00:00:00 haemophilus b 1997 Completed [facility] conjugate (PRP-T) 00:00:00 vaccine Hx poliovirus 1997 Completed [facility]-unspecified 00:00:00 diphtheria/pertussis, 1997 Completed [facility] [place] acel/tetanus ped 00:00:00 haemophilus b [address] [facility] ([facility]) 00:00:00 vaccine Hx [facility] 1997 [facility]:00 diphtheria/pertussis, 1997 Completed [facility] acel/tetanus ped 00:00:00 TDAP 1997 Completed [facility] 00:00:00 [facility] HIB 4 Dose Schedule 1997 Completed [facility] 00:00:00 [facility] Polio (IPV/OPV) 1997 Completed [facility] 00:00:00 [facility] TDAP 1997 Completed [facility] 00:00:00 [facility] HIB 4 Dose Schedule 1997 Completed [facility] 00:00:00 [facility] Polio (IPV/OPV) 1997 Completed [facility] 00:00:00 [facility] TDAP 1997 Completed [facility] 00:00:00 [facility] HIB 4 Dose Schedule 1997 Completed [facility] of 00:00:00 [facility] Polio (IPV/OPV) 1997 Completed [facility] 00:00:00 [facility] TDAP 1997 Completed [facility] 00:00:00 [facility] HIB 4 Dose Schedule 1997 Completed [facility] 00:00:00 [facility] Polio (IPV/OPV) 1997 Completed [facility] 00:00:00 [facility] TDAP 1997 Completed [facility] 00:00:00 [facility] HIB 4 Dose Schedule 1997 Completed [facility] of 00:00:00 [facility] Polio (IPV/OPV) 1997 Completed [facility] 00:00:00 [facility] TDAP 1997 Completed [facility] 00:00:00 [facility] HIB 4 Dose Schedule 1997 Completed [facility] of 00:00:00 [facility] Polio (IPV/OPV) 1997 Completed [facility] 00:00:00 [facility] TDAP 1997 Completed [facility] 00:00:00 [facility] HIB 4 Dose Schedule 1997 Completed [facility] 00:00:00 [facility] Polio (IPV/OPV) 1997 Completed [facility] 00:00:00 [facility] TDAP 1997 Completed [facility] 00:00:00 [facility] HIB 4 Dose Schedule 1997 Completed [facility] rsity of 00:00:00 [facility] Polio (IPV/OPV) 1997 Completed [facility] 00:00:00 [facility] TDAP 1997 Completed [facility] 00:00:00 [facility] HIB 4 Dose Schedule 1997 Completed [facility]ity of 00:00:00 [facility] Polio (IPV/OPV) 1997 Completed [facility] 00:00:00 [facility] TDAP 1997 Completed [facility] 00:00:00 [facility] HIB 4 Dose Schedule 1997 Completed [facility]ity of 00:00:00 [facility] Polio (IPV/OPV) 1997 Completed [facility] 00:00:00 [facility] TDAP 1997 Completed [facility] 00:00:00 [facility] HIB 4 Dose Schedule 1997 Completed [facility]ity of 00:00:00 [facility] Polio (IPV/OPV) 1997 Completed [facility] 00:00:00 [facility] TDAP 1997 Completed [facility] 00:00:00 [facility] HIB 4 Dose Schedule 1997 Completed [facility] of 00:00:00 [facility] Polio (IPV/OPV) 1997 Completed [facility] 00:00:00 [facility] TDAP 1997 Completed [facility] 00:00:00 [facility] HIB 4 Dose Schedule 1997 Completed [facility]ity of 00:00:00 [facility] Polio (IPV/OPV) 1997 Completed [facility] 00:00:00 [facility] TDAP 1997 Completed [facility] 00:00:00 [facility] HIB 4 Dose Schedule 1997 Completed [facility]ity of 00:00:00 [facility] Polio (IPV/OPV) 1997 Completed [facility] 00:00:00 [facility] TDAP 1997 Completed [facility] 00:00:00 [facility] HIB 4 Dose Schedule 1997 Completed [facility] of 00:00:00 [facility] Polio (IPV/OPV) 1997 Completed [facility] 00:00:00 [facility] haemophilus b 1997 Completed [facility] conjugate (PRP-T) 00:00:00 vaccine Hx poliovirus 1997 Completed [facility]-unspecified 00:00:00 diphtheria/pertussis, 1997 Completed [facility] [place] acel/tetanus ped 00:00:00 haemophilus b 1997 Completed [facility] conjugate (PRP-T) 00:00:00 vaccine hepatitis B pediatric 1997 Completed [facility] [place] vaccine 00:00:00 Hx poliovirus 1997 Completed [facility]-unspecified 00:00:00 diphtheria/pertussis, 1997 Completed [facility] acel/tetanus ped 00:00:00 haemophilus b 1997 Completed [facility] conjugate (PRP-T) 00:00:00 vaccine hepatitis B pediatric 1997 Completed [facility] 00:00:00 Hx poliovirus 1997 Completed [facility]-unspecified 00:00:00 diphtheria/pertussis, 1997 Completed [facility] [place] acel/tetanus ped 00:00:00 haemophilus b 1997 Completed [facility] conjugate (PRP-T) 00:00:00 vaccine hepatitis B pediatric 1997 Completed [facility] [place] vaccine 00:00:00 Hx poliovirus 1997 Completed [facility] vaccine-unspecified 00:00:00 diphtheria/pertussis, 1997 Completed [facility] [place] acel/tetanus ped 00:00:00 haemophilus b 1997 Completed [facility] conjugate (PRP-T) 00:00:00 vaccine hepatitis B pediatric 1997 Completed [facility] 00:00:00 Hx poliovirus 1997 Completed [facility] vaccine-unspecified 00:00:00 diphtheria/pertussis, 1997 Completed [facility] [place] acel/tetanus ped 00:00:00 haemophilus b 1997 Completed [facility] conjugate (PRP-T) 00:00:00 vaccine hepatitis B pediatric 1997 Completed [facility] 00:00:00 Hx poliovirus 1997 Completed [facility] vaccine-unspecified 00:00:00 diphtheria/pertussis, 1997 Completed [facility] [place] acel/tetanus ped 00:00:00 haemophilus b [address] [facility]mann conjugate (PRP-T) 00:00:00 vaccine hepatitis B pediatric 1997 Completed [facility] [place] vaccine 00:00:00 Hx poliovirus 1997 Completed [facility] vaccine-unspecified 00:00:00 diphtheria/pertussis, 1997 Completed [facility] [place] acel/tetanus ped 00:00:00 haemophilus b [address] [facility]mann conjugate (PRP-T) 00:00:00 vaccine hepatitis B pediatric 1997 Completed [facility] [place] vaccine 00:00:00 Hx poliovirus 1997 Completed [facility]-unspecified 00:00:00 diphtheria/pertussis, 1997 Completed [facility] acel/tetanus ped 00:00:00 TDAP 1997 Completed [facility] 00:00:00 [facility] HIB 4 Dose Schedule 1997 Completed [facility] of 00:00:00 [facility] Hep B, Adol or Pedi 1997 Completed [facility] of Dosage 00:00:00 [facility] Polio (IPV/OPV) 1997 Completed [facility] 00:00:00 [facility] TDAP 1997 Completed [facility] 00:00:00 [facility] HIB 4 Dose Schedule 1997 Completed [facility] of 00:00:00 [facility] Hep B, Adol or Pedi 1997 Completed [facility] of Dosage 00:00:00 [facility] Polio (IPV/OPV) 1997 Completed [facility] 00:00:00 [facility] TDAP 1997 Completed [facility] 00:00:00 [facility] HIB 4 Dose Schedule 1997 Completed [facility] of 00:00:00 [facility] Hep B, Adol or Pedi 1997 Completed [facility] of Dosage 00:00:00 [facility] Polio (IPV/OPV) 1997 Completed [facility] 00:00:00 [facility] TDAP 1997 Completed [facility] 00:00:00 [facility] HIB 4 Dose Schedule 1997 Completed [facility] of 00:00:00 [facility] Hep B, Adol or Pedi 1997 Completed [facility] of Dosage 00:00:00 [facility] Polio (IPV/OPV) 1997 Completed [facility] 00:00:00 [facility] TDAP 1997 Completed [facility] 00:00:00 [facility] HIB 4 Dose Schedule 1997 Completed [facility] rsity of 00:00:00 [facility] Hep B, Adol or Pedi 1997 Completed [facility] of Dosage 00:00:00 [facility] Polio (IPV/OPV) 1997 Completed [facility] 00:00:00 [facility] TDAP 1997 Completed [facility] 00:00:00 [facility] HIB 4 Dose Schedule 1997 Completed [facility] of 00:00:00 [facility] Hep B, Adol or Pedi 1997 Completed [facility] of Dosage 00:00:00 [facility] Polio (IPV/OPV) 1997 Completed [facility] 00:00:00 [facility] TDAP 1997 Completed [facility] 00:00:00 [facility] HIB 4 Dose Schedule 1997 Completed [facility] of 00:00:00 [facility] Hep B, Adol or Pedi 1997 Completed [facility] of Dosage 00:00:00 [facility] Polio (IPV/OPV) 1997 Completed [facility] 00:00:00 [facility] TDAP 1997 Completed [facility] 00:00:00 [facility] HIB 4 Dose Schedule 1997 Completed [facility] of 00:00:00 [facility] Hep B, Adol or Pedi 1997 Completed [facility] of Dosage 00:00:00 [facility] Polio (IPV/OPV) 1997 Completed [facility] 00:00:00 [facility] TDAP 1997 Completed [facility] 00:00:00 [facility] HIB 4 Dose Schedule 1997 Completed [facility]ity of 00:00:00 [facility] Hep B, Adol or Pedi 1997 Completed [facility] of Dosage 00:00:00 [facility] Polio (IPV/OPV) 1997 Completed [facility] 00:00:00 [facility] TDAP 1997 Completed [facility] 00:00:00 [facility] HIB 4 Dose Schedule 1997 Completed [facility] of 00:00:00 [facility] Hep B, Adol or Pedi 1997 Completed [facility] of Dosage 00:00:00 [facility] Polio (IPV/OPV) 1997 Completed [facility] 00:00:00 [facility] TDAP 1997 Completed [facility] 00:00:00 [facility] HIB 4 Dose Schedule 1997 Completed [facility] of 00:00:00 [facility] Hep B, Adol or Pedi 1997 Completed [facility] of Dosage 00:00:00 [facility] Polio (IPV/OPV) 1997 Completed [facility] 00:00:00 [facility] TDAP 1997 Completed [facility] 00:00:00 [facility] HIB 4 Dose Schedule 1997 Completed [facility] of 00:00:00 [facility] Hep B, Adol or Pedi 1997 Completed [facility] of Dosage 00:00:00 [facility] Polio (IPV/OPV) 1997 Completed [facility] 00:00:00 [facility] TDAP 1997 Completed [facility] 00:00:00 [facility] HIB 4 Dose Schedule 1997 Completed [facility] of 00:00:00 [facility] Hep B, Adol or Pedi 1997 Completed [facility] of Dosage 00:00:00 [facility] Polio (IPV/OPV) 1997 Completed [facility] 00:00:00 [facility] TDAP 1997 Completed [facility] 00:00:00 [facility] HIB 4 Dose Schedule 1997 Completed [facility] of 00:00:00 [facility] Hep B, Adol or Pedi 1997 Completed [facility] of Dosage 00:00:00 [facility] Polio (IPV/OPV) 1997 Completed [facility] 00:00:00 [facility] TDAP 1997 Completed [facility] 00:00:00 [facility] HIB 4 Dose Schedule 1997 Completed [facility] of 00:00:00 [facility] Hep B, Adol or Pedi 1997 Completed [facility] Dosage 00:00:00 [facility] Polio (IPV/OPV) 1997 Completed [facility] 00:00:00 [facility] haemophilus b [address] [facility]mann conjugate (PRP-T) 00:00:00 vaccine hepatitis B pediatric 1997 Completed [facility] 00:00:00 Hx poliovirus [address] [facility]mann vaccine-unspecified 00:00:00 diphtheria/pertussis, 1997 Completed [facility] [place] acel/tetanus ped 00:00:00 hepatitis B pediatric 1997 Completed [facility] [place] vaccine 00:00:00 hepatitis B pediatric 1997 Completed [facility] [place] vaccine 00:00:00 hepatitis B pediatric 1997 Completed [facility] [place] vaccine 00:00:00 hepatitis B pediatric 1997 Completed [facility] vaccine 00:00:00 hepatitis B pediatric 1997 Completed [facility] vaccine 00:00:00 hepatitis B pediatric 1997 Completed [facility] [place] vaccine 00:00:00 hepatitis B pediatric 1997 Completed [facility] [place] vaccine 00:00:00 Hep B, Adol or Pedi 1997 Completed [facility] Dosage 00:00:00 [facility] Hep B, Adol or Pedi 1997 Completed [facility] Dosage 00:00:00 [facility] Hep B, Adol or Pedi 1997 Completed [facility] Dosage 00:00:00 [facility] Hep B, Adol or Pedi 1997 Completed [facility] Dosage 00:00:00 [facility] Hep B, Adol or Pedi 1997 Completed [facility] Dosage 00:00:00 [facility] Hep B, Adol or Pedi 1997 Completed [facility] Dosage 00:00:00 [facility] Hep B, Adol or Pedi 1997 Completed [facility] Dosage 00:00:00 [facility] Hep B, Adol or Pedi 1997 Completed [facility] Dosage 00:00:00 [facility] Hep B, Adol or Pedi 1997 Completed [facility] Dosage 00:00:00 [facility] Hep B, Adol or Pedi 1997 Completed [facility] Dosage 00:00:00 [facility] Hep B, Adol or Pedi 1997 Completed [facility] of Dosage 00:00:00 [facility] Hep B, Adol or Pedi 1997 Completed [facility] of Dosage 00:00:00 [facility] Hep B, Adol or Pedi 1997 Completed [facility] of Dosage 00:00:00 [facility] Hep B, Adol or Pedi 1997 Completed [facility] of Dosage 00:00:00 [facility] Hep B, Adol or Pedi 1997 Completed [facility] Dosage 00:00:00 [facility] hepatitis B pediatric 1997 Completed [facility] [place] vaccine 00:00:00 Vital Signs Vital Name Observation Time Observation Value Comments Source Systolic blood 2023-03-26 15:42:00 145 mm[Hg] [facility] Diastolic blood 2023-03-26 15:42:00 86 mm[Hg] [facility] pressure [facility] Heart rate 2023-03-26 15:42:00 86 /min [facility] Body height 2023-03-26 15:41:00 165.1 cm [facility] Body weight 2023-03-26 15:41:00 80.241 kg [facility] BMI 2023-03-26 15:41:00 29.44 kg/m2 [facility] Systolic blood 2023-02-27 23:44:00 127 mm[Hg] [facility] Diastolic blood 2023-02-27 23:44:00 84 mm[Hg] [facility] pressure [facility] Heart rate 2023-02-27 23:44:00 75 /min [facility] Body temperature 2023-02-27 23:44:00 36.5 Soila [facility] Respiratory rate 2023-02-27 23:44:00 20 /min [facility] Body height 2023-02-27 23:44:00 165.1 cm [facility] Body weight 2023-02-27 23:44:00 80.015 kg [facility] BMI 2023-02-27 23:44:00 29.35 kg/m2 [facility] Oxygen saturation in 2023-02-27 23:44:00 99 /min [facility] Arterial blood by [facility] Pulse oximetry [facility] Systolic blood 2022-11-18 22:24:00 114 mm[Hg] [facility] pressure [facility] Diastolic blood 2022-11-18 22:24:00 69 mm[Hg] [facility] pressure [facility] Heart rate 2022-11-18 22:24:00 90 /min [facility] Body temperature 2022-11-18 22:24:00 37.28 Soila [facility] Respiratory rate 2022-11-18 22:24:00 17 /min [facility] Body height 2022-11-18 22:24:00 165.1 cm [facility] Body weight 2022-11-18 22:24:00 80.74 kg [facility] BMI 2022-11-18 22:24:00 29.62 kg/m2 [facility] Oxygen saturation in 2022-11-18 22:24:00 98 /min University Arterial blood by [facility] Pulse oximetry Branch BP Systolic 2022-11-14 16:14:00 137 mm[Hg] BP Diastolic 2022-11-14 16:14:00 80 mm[Hg] Weight Measured 2022-11-14 16:14:00 177.20 pounds Height Measured 2022-11-14 16:14:00 65.00 inches Body Temperature 2022-11-14 16:14:00 98.60 degrees Heart Rate 2022-11-14 16:14:00 73.00 /min Respiratory Rate 2022-11-14 16:14:00 18.00 /min BP Systolic 2022-08-24 12:38:00 142 mm[Hg] BP Diastolic 2022-08-24 12:38:00 82 mm[Hg] Weight Measured 2022-08-24 12:38:00 178.80 pounds Height Measured 2022-08-24 12:38:00 65.00 inches Body Temperature 2022-08-24 12:38:00 98.10 degrees Heart Rate 2022-08-24 12:38:00 72.00 /min Respiratory Rate 2022-08-24 12:38:00 BP Systolic 2022-07-20 14:23:00 121 mm[Hg] BP Diastolic 2022-07-20 14:23:00 80 mm[Hg] Weight Measured 2022-07-20 14:23:00 177.20 pounds Height Measured 2022-07-20 14:23:00 65.00 inches Body Temperature 2022-07-20 14:23:00 98.30 degrees Heart Rate 2022-07-20 14:23:00 64.00 /min Respiratory Rate 2022-07-20 14:23:00 BP Systolic 2022-07-06 13:45:00 128 mm[Hg] BP Diastolic 2022-07-06 13:45:00 78 mm[Hg] Weight Measured 2022-07-06 13:45:00 175.40 pounds Height Measured 2022-07-06 13:45:00 65.00 inches Body Temperature 2022-07-06 13:45:00 98.20 degrees Heart Rate 2022-07-06 13:45:00 82.00 /min Respiratory Rate 2022-07-06 13:45:00 BP Systolic 2022-06-06 17:30:00 125 mm[Hg] BP Diastolic 2022-06-06 17:30:00 82 mm[Hg] Weight Measured 2022-06-06 17:30:00 174.00 pounds Height Measured 2022-06-06 17:30:00 65.00 inches Body Temperature 2022-06-06 17:30:00 98.60 degrees Heart Rate 2022-06-06 17:30:00 90.00 /min Respiratory Rate 2022-06-06 17:30:00 BP Systolic 2022-06-04 15:50:00 118 mm[Hg] BP Diastolic 2022-06-04 15:50:00 81 mm[Hg] Weight Measured 2022-06-04 15:50:00 174.80 pounds Height Measured 2022-06-04 15:50:00 65.00 inches Body Temperature 2022-06-04 15:50:00 98.00 degrees Heart Rate 2022-06-04 15:50:00 85.00 /min Respiratory Rate 2022-06-04 15:50:00 16.00 /min BP Systolic 2022-04-18 14:59:00 120 mm[Hg] BP Diastolic 2022-04-18 14:59:00 70 mm[Hg] Weight Measured 2022-04-18 14:59:00 172.80 pounds Height Measured 2022-04-18 14:59:00 65.00 inches Body Temperature 2022-04-18 14:59:00 98.70 degrees Heart Rate 2022-04-18 14:59:00 81.00 /min Respiratory Rate 2022-04-18 14:59:00 BP Systolic 2022-04-10 16:32:00 125 mm[Hg] BP Diastolic 2022-04-10 16:32:00 84 mm[Hg] Weight Measured 2022-04-10 16:32:00 172.00 pounds Height Measured 2022-04-10 16:32:00 65.00 inches Body Temperature 2022-04-10 16:32:00 97.10 degrees Heart Rate 2022-04-10 16:32:00 74.00 /min Respiratory Rate 2022-04-10 16:32:00 BP Systolic 2022-03-30 14:31:00 123 mm[Hg] BP Diastolic 2022-03-30 14:31:00 78 mm[Hg] Weight Measured 2022-03-30 14:31:00 171.10 pounds Height Measured 2022-03-30 14:31:00 65.00 inches Body Temperature 2022-03-30 14:31:00 98.20 degrees Heart Rate 2022-03-30 14:31:00 69.00 /min Respiratory Rate 2022-03-30 14:31:00 BP Systolic 2022-03-09 14:33:00 123 mm[Hg] BP Diastolic 2022-03-09 14:33:00 77 mm[Hg] Weight Measured 2022-03-09 14:33:00 169.40 pounds Height Measured 2022-03-09 14:33:00 65.00 inches Body Temperature 2022-03-09 14:33:00 97.30 degrees Heart Rate 2022-03-09 14:33:00 61.00 /min Respiratory Rate 2022-03-09 14:33:00 BP Systolic 2022-02-04 13:31:00 115 mm[Hg] BP Diastolic 2022-02-04 13:31:00 75 mm[Hg] Weight Measured 2022-02-04 13:31:00 178.20 pounds Height Measured 2022-02-04 13:31:00 65.00 inches Body Temperature 2022-02-04 13:31:00 96.60 degrees Heart Rate 2022-02-04 13:31:00 67.00 /min Respiratory Rate 2022-02-04 13:31:00 Temperature Oral (F) 2020-08-09 05:32:00 98 F [facility] Heart Rate 2020-08-09 05:32:00 [facility] [place] Respitory Rate 2020-08-09 05:32:00 [facility] [place] Systolic (mm Hg) 2020-08-09 05:32:00 [facility] Diastolic (mm Hg) 2020-08-09 05:32:00 [facility] [place] Weight 2020-08-09 02:24:00 [facility] Systolic (mm Hg) 2020-08-09 02:24:00 [facility] [place] Diastolic (mm Hg) 2020-08-09 02:24:00 [facility] Heart Rate 2020-08-09 02:24:00 [facility] Respitory Rate 2020-08-09 02:24:00 [facility] Temperature Oral (F) 2020-08-09 02:24:00 98.4 F [facility] Temperature Oral (F) 2014-05-24 22:16:00 98.7 F [facility] Diastolic (mm Hg) 2014-05-24 22:16:00 [facility] Respitory Rate 2014-05-24 22:16:00 [facility] [place] Systolic (mm Hg) 2014-05-24 22:16:00 [facility] Respitory Rate 2014-05-24 21:03:00 [facility] Diastolic (mm Hg) 2014-05-24 21:03:00 [facility] Systolic (mm Hg) 2014-05-24 21:03:00 [facility] [place] Weight 2014-05-24 19:05:00 [facility] Height 2014-05-24 19:05:00 165.1 cm [facility] BMI Calculated 2014-05-24 19:05:00 [facility] Temperature Oral (F) 2014-05-24 19:05:00 98.9 F [facility] [place] Respitory Rate 2014-05-24 19:05:00 [facility] Diastolic (mm Hg) 2014-05-24 19:05:00 [facility] Heart Rate 2014-05-24 19:05:00 [facility] Systolic (mm Hg) 2014-05-24 19:05:00 [facility] [place] Procedures Procedure Date / Time Performed Performing Clinician Sour e CT HEAD WO CONTRAST 2023-03-21 18:47:03 Mariann Horowitz [facility] XR SHUNT SERIES 2023-03-21 18:45:17 Mariann Horowitz [facility] POCT URINALYSIS 2023-02-27 23:40:[address] [facility] PATIENT FINANCIAL 2023-02-27 23:32:26 Doctor Unassigned, No [facility] POLICY Name [facility] POCT MOLECULAR FLU 2022-11-18 22:25:00 Unknown, Attending Maurilio bautista [facility] POCT MOLECULAR STREP 2022-11-18 22:22:00 Unknown, Attending [facility] REFERRAL- 2022-06-19 05:01:00 Doctor Unassigned, No Maurilio bautista [facility] REQUEST/RESPONSE Name [facility] [QL] CMP W/EGFR 2018-01-09 00:00[facility] HEMOGLOBIN A1c 2018-01-09 00:00:00 [facility] LIPASE 2018-01-09 00:00[facility] T4, FREE 2018-01-09 00:00:00 [facility] VITAMIN D, 2018-01-09 00:00:00 [facility] [id number], LC/MS/MS [QL] TSH, 3RD 2018-01-09 00:00:00 [place] Physician s GENERATION [facility] Plan of Care Planned Activity Planned Date Details Comments Source Goal Plan of Care Note [code = 37523-5] Goal Plan of Care Note [code = 71902-3] Goal Plan of Care Note [code = 33508-2] Goal Plan of Care Note [code = 12460-2] Goal Plan of Care Note [code = 53600-6] Goal Plan of Care Note [code = 05756-4] Goal Plan of Care Note [code = 72305-7] Goal Plan of Care Note [code = 45302-3] Goal Plan of Care Note [code = 12388-1] Goal Plan of Care Note [code = 08147-2] Goal Plan of Care Note [code = 17608-0] Goal Plan of Care Note [code = 55245-7] Goal Plan of Care Note [code = 52151-2] Goal Plan of Care Note [code = 79471-1] Goal Plan of Care Note [code = 79859-4] Goal Plan of Care Note [code = 09790-1] Goal Plan of Care Note [code = 45373-6] Goal Plan of Care Note [code = 39577-8] Goal Plan of Care Note [code = 40393-7] Goal Plan of Care Note [code = 86808-9] Goal Plan of Care Note [code = 58312-1] Goal Plan of Care Note [code = 85151-8] Goal Plan of Care Note [code = 36896-2] Goal Plan of Care Note [code = 14243-8] Goal Plan of Care Note [code = 46302-3] Goal Plan of Care Note [code = 38729-3] Goal Plan of Care Note [code = 27078-1] Goal Plan of Care Note [code = 84332-4] Goal Plan of Care Note [code = 43313-8] Goal Plan of Care Note [code = 05457-4] Goal Plan of Care Note [code = 97581-4] Goal Plan of Care Note [code = 21558-1] Goal Plan of Care Note [code = 31847-7] Goal Plan of Care Note [code = 52839-4] Goal Plan of Care Note [code = 26743-2] Goal Plan of Care Note [code = 46460-8] Goal Plan of Care Note [code = 96556-6] Goal Plan of Care Note [code = 54188-7] Goal Plan of Care Note [code = 33016-5] Goal Plan of Care Note [code = 64580-6] Goal Plan of Care Note [code = 29048-2] Goal Plan of Care Note [code = 29766-6] Goal Plan of Care Note [code = 77528-5] Goal Plan of Care Note [code = 57410-2] Goal Plan of Care Note [code = 35367-6] Encounters Start End Encounter Admission Attending Care Care Encounter Source Date/Time Date/Time Type Type Clinicians Facility Department ID 2021-10-01 Emergency [facility] [id number] Univers 14:17:50 ity [facility] 2021-09-30 Emergency [facility] [id number] Univers 22:26:09 ity [facility] 2021-09-30 Emergency [facility] [id number] Univers 22:13:05 ity of [facility] 2021-09-30 Emergency [facility] [id number] Univers 22:07:48 ity of [facility] 2021-09-30 Emergency [facility] [id number] Univers 21:52:57 ity [facility] 2021-09-30 Emergency [facility] [id number] Univers 21:47:12 ity [facility] 2021-09-30 Outpatient P [facility] [id number] Univers 17:49:58 ity [facility] 2021-09-30 Outpatient P [facility] [id number] Univers 17:46:00 ity of [facility] 2021-09-29 Emergency [facility] [id number] Univers 07:41:30 ity of [facility] 2021-09-29 Emergency [facility] [id number] Univers 07:05:22 ity of [facility] 2021-09-29 Emergency [facility] [id number] Univers 06:59:05 ity of [facility] 2021-09-28 Emergency [facility] [id number] Univers 16:28:56 ity of [facility] 2021-09-28 Emergency [facility] [id number] Univers 16:12:06 ity of [facility] 2021-09-28 Emergency [facility] [id number] Univers 16:07:19 ity of [facility] 2021-09-28 Emergency [facility] [id number] Univers 16:01:25 ity of [facility] 2021-09-27 Emergency [facility] [id number] Univers 19:42:34 ity of [facility] 2021-09-27 Emergency [facility] [id number] Univers 19:34:23 ity of [facility] 2023-03-29 2023-03-29 Outpatient [facility] [id number] Dinesh 10:03:52 10:03:52 [id number] F [place] 2023-03-26 2023-03-26 [facility] [id number] Univers 10:15:00 16:27:29 GARRETT kaylynnrichard [facility] 2023-03-26 2023-03-26 Office [facility] 1.2.840.114 [id number] Univers 10:15:00 16:27:29 Visit [facility] 350.1.13.10 it y of [place] 4.2.7.2.686 [facility] [id number] [address] OFFICE BUILDING 2023-03-25 2023-03-25 Outpatient [facility] [id number] Dinesh 16:07:53 16:07:53 53590 F Gustavo 2023-03-21 2023-03-21 [facility] 1.2.840.114 [id number] Univers 13:10:52 23:59:00 Encounter Mariann THOMAS 350.1.13.10 ity of [place] [id number] [facility] [address] 2023-03-21 2023-03-21 Outpatient R [facility] [id number] Univers 13:03:55 13:09:00 MARIANN ity [facility] 2023-03-21 2023-03-21 [facility] 1.2.840.114 [id number] Univers 13:03:55 13:09:00 Encounter Mariann NORMANHOLDEN 350.1.13.10 ity of [facility] [place] [id number] [facility] [address] 2023-03-21 2023-03-21 Telephone [facility] 1.2.840.114 [id number] Univers 00:00:00 00:00:00 [facility] 350.1.13.10 it y of [place] [id number] [facility] [address] OFFICE BUILDING 2023-03-20 2023-03-20 Telephone [facility] 1.2.840.114 [id number] Univers 00:00:00 00:00:00 [facility] 350.1.13.10 ity of [facility] 4.2.7.2.686 Pradip as JF?BLEA [id number] Il capri DEE [address] [place] MEDICAL OFFICE BUILDING 2023-02-27 2023-02-27 Outpatient R JESSIE III, [facility] [id number] Univers 18:20:00 19:22:35 ABBY ity of [facility] 2023-02-27 2023-02-27 Urgent Abby Owens [facility] 1.2.840.114 [id number] Univers 18:20:00 18:40:00 Care Unknown, Attending HEALTH 350.1.13.10 ity of [facility] 4.2.7.2.686 Pradip as JF?BLEA [id number] Il capri DEE [address] [place] MEDICAL OFFICE BUILDING 2023-02-27 2023-02-27 Orders Doctor RAYO 1.2.840.114 [id number] Univers 00:00:00 00:00:00 Only Unassigned, RANDI 350.1.13.10 ity of [facility] 4.2.7.2.686 Pradip as [id number] [place] [address] [address] 2023-02-01 2023-02-01 Outpatient [facility] [id number] Dinesh 09:10:00 09:10:00 56068 F Gustavo 2022-11-18 2022-11-18 [facility] 1.2.840.11 [id number] [facility] 16:00:00 16:20:00 Care Unknown, Attending [facility] 350.1.13.10 ity of [place] 4.2.7.2.686 Pradip as JF?BLEA [id number] [address] MEDICAL OFFICE BUILDING 2022-11-18 2022-11-18 Outpatient R YISEL [facility] [id number] [facility] 16:00:00 16:00:00 REENU ity of [facility] 2022-11-14 2022-11-14 Outpatient [facility] [id number] Dinesh 16:06:52 16:06:52 60926 F [place] 2022-11-14 2022-11-14 Outpatient [id number] 87151s-j 00:00:00 00:00:00 Visit [id number] 525-4a93-b -aq54-h1k c32-s0a13o [id number] 2022-09-17 2022-09-17 Case CRIS MarquezSalazar 1.2.840.[id number] [place] [address] 00:00:00 00:00:00 Management Chaya VARGHESEY 350.1.13.10 ity of [place].2.[place].2.[place] [id number] [place] [address] [place] 2022-08-24 2022-08-24 Outpatient [id number] 4d [id number] 00:00:00 00:00:00 Visit 396e-4e63 96e-4e63-9 -955f-325 [id number] y90y510ct c136 2022-07-01 2022-07-01 Outpatient [facility] [id number] Univers 09:00:00 09:00:00 TODD sheth of [facility] 2022-06-19 2022-06-19 Orders Doctor RAYO 1.2.840.114 [id number] Univers 00:00:00 00:00:00 Only Unassigned, RANDI 350.1.13.10 ity of [place] [facility] 4.2.7.2.686 Pradip as [id number] [place] [address] [address] 2022-06-07 2022-06-07 Outpatient [facility] [id number] Univers 13:30:00 13:59:32 GARRETT sheth [facility] 2022-06-07 2022-06-07 Office Clinic, Neurosurgery Residen [facility] 1.2.840.114 [id number] Univers 13:30:00 13:59:32 Visit Garrett Villalta HEALTH 350.1.13.10 it[place] of [place] [id number] [address] 2022-06-07 2022-06-07 Letter BRENDON Rosario 1.2.840.114 [id number] Univers 00:00:00 00:00:00 (Out) Adrianne C Y HEALTH 350.1.13.10 ity of CL[place] [id number] [address] 2022-05-30 2022-05-30 Telephone Pawan [facility] 1.2.840.114 [id number] Univers 00:00:00 00:00:00 Garrett HEALTH 350.1.13.10 it y of [place] [id number] [address] OFFICE BUILDING 2022-05-28 2022-05-28 Transition HUDSON Robertson 1.2.840.114 [id number] Univers 00:00:00 00:00:00 of Care Mela INFANTE 350.1.13.10 i ty of [place] 4.2.7.2.686 [place] [id number] [place] [address] [place] 2022-05-23 2022-05-26 Inpatient [facility] YINA [id number] Univers 20:24:00 16:00:00 [facility] 2022-05-23 2022-05-26 Hospital June Latonyara Francisca DENNEY 1.2.84 0.114 [id number] Univers 20:24:00 16:00:00 Encounter Lio Hernandez 350.1.13.10 ity of [facility] 4.2.7.2.686 [place] [id number] [address] 2022-05-24 2022-05-24 Surgery LINDSEY Villalta 1.2.840.114 [id number] Univers 11:54:00 14:30:00 Garrett RANDI 350.1.13.10 it y of [facility] 4.2.7.2.[id number] [facility] [address] 2022-05-23 2022-05-23 Outpatient X [facility] SNS [id number] Univers 20:24:00 20:24:00 [facility] 2022-05-23 2022-05-23 Telephone [facility] 1.2.840.114 [id number] Univers 00:00:00 00:00:00 [facility] 350.1.13.10 it[place] of [place] [id number] [address] OFFICE BUILDING 2022-05-23 2022-05-23 [facility] 1.2.840.114 [id number] Univers 00:00:00 00:00:00 [facility] 350.1.13.10 it[place] of [place] [id number] [address] OFFICE BUILDING 2022-05-22 2022-05-22 Outpatient SIMONE HOWARD [facility] [id number] Univers 11:30:00 23:59:00 SIMONE LI richard [facility] 2022-05-22 2022-05-22 Outpatient SIMONE HOWARD [facility] [id number] Univers 11:30:00 23:59:00 SIMONE LI richard [facility] 2022-05-22 2022-05-22 Hospital Simone Li [facility] 1.2. 840.114 [id number] Univers 10:22:49 23:59:00 Encounter Sonam Browning [facility] 350.1.1 3.10 ity of [place] 4.2.7.2.686 [facility] [phone] [facility] [address] ([facility]) 2022-05-20 2022-05-20 Outpatient Adrienne LUNA KOEL [facility] [id number] Univers 14:00:00 14:00:00 ity [facility] 2022-05-20 2022-05-20 Outpatient KOLE SEAY [facility] [id number] Univers 14:00:00 14:00:00 ity [facility] 2022-04-29 2022-04-29 Outpatient Adrienne HENRY [facility] [id number] Univers 14:40:00 15:13:05 LICHA sheth o f [facility] 2022-04-29 2022-04-29 [facility]gent [facility] 1.2.840.114 [id number] Univers 14:40:00 15:13:05 Care [facility] 350.1.13.10 i ty of [place] 4.2.7.2.686 Pradip as JF?BLEA [id number] [address] MEDICAL OFFICE BUILDING 2022-04-29 2022-04-29 Outpatient Adrienne HENRY [facility] [id number] Univers 12:00:00 12:00:00 LICHA sheth o karel [facility] 2022-04-22 2022-04-22 Outpatient SIMONE HOWARD [facility] [id number] Univers 14:20:00 16:00:54 JEN SIMONE sheth [facility] 2022-04-22 2022-04-22 Office Jen [facility] 1.2.840.114 [id number] Univers 14:20:00 16:00:54 Visit Simone [facility] 350.1.13.10 ity of [place] 4.2.7.2.686 Pradip as JF?BLEA [id number] Il capri [facility] [address] [place] MEDICAL OFFICE [facility] 2022-04-22 2022-04-22 Orders Doctor CADE 1.2.840.114 [id number] Univers 00:00:00 00:00:00 Only Unassigned, RANDI 350.1.13.10 ity of [place] [facility] 4.2.7.2.[phone] [facility] [address] [place] 2022-03-22 2022-03-22 Outpatient R JOHN [facility] [id number] Univers 13:00:00 13:00:00 THERSEE sheth [facility] 2022-02-27 2022-02-27 Outpatient R ANIKA [facility] [id number] Univers 15:00:00 15:00:00 ALESHIA sheth o f [facility] 2022-02-16 2022-02-16 Refill Kelechi [facility] 1.2.840.114 [id number] Univers 00:00:00 00:00:00 [facility] 350.1.13.10 it y of [place] 4.2.7.2.686 Pradip as JF?BLEA [id number] [address] OFFICE [facility] 2022-01-22 2022-01-22 Emergency [facility] ERT [id number] Univers 17:38:00 19:06:00 LATONYA sheth [facility] 2022-01-22 2022-01-22 Emergency [facility] 1.2.840.114 [id number] Univers 17:38:00 19:06:00 Latonya THOMAS 350.1.13.10 ity of [place].2.7.2.[place] [facility] [id number] [facility] [address] [place] 2022-01-20 2022-01-20 Urgent John Lorenz [facility] 1.2.840.114 [id number] Univers 13:40:00 13:40:00 Care Lisseth Michelle HEALTH 350.1.13.10 ity of [place] 4.2.7.2.686 Pradip as JF?BLEA [phone] Me [address] MEDICAL OFFICE [facility] 2022-01-20 2022-01-20 Outpatient R VIVIANA [facility] [id number] Univers 13:40:00 12:26:37 LISSETH sheth o f [facility] 2022-01-19 2022-01-19 Telephone RAYO Tolentino 1.2.833.363 [id number] Univers 00:00:00 00:00:00 Mary Carmen RANDI 350.1.13.10 it y of [facility] 4.2.7.2.686 Pradip as [id number] [address] 2022-01-18 2022-01-18 Laboratory Only, Ang Db Test [facility] 1.2.8 40.114 [id number] Univers 19:30:00 19:45:00 Only Berry [facility] 350.1.13.10 itRanken [facility] 4.2.7.2.686 Pradip as JF?BLEA [id number] [address] MEDICAL OFFICE [facility] 2022-01-18 2022-01-18 Outpatient R BERRY [facility] [id number] Univers 19:30:00 19:30:00 [facility] 2022-01-14 2022-01-14 Nurse Ingrid [place] 1.2.840.114 [id number] Univers 00:00:00 00:00:00 Triage ARNDI 350.1.13.10 it y of HOSPITAL 4.2.7.2.686 Pradip as [id number] [address] 2021-11-20 2021-11-20 Outpatient R JUNE [facility] [id number] Univers 09:00:00 09:00:00 DEANDRE sheth [facility] 2021-11-18 2021-11-18 Nurse RAYO Lynn 1.2.840.114 [id number] Univers 00:00:00 00:00:00 Triage Rhoda RANDI 350.1.13.10 it y of HOSPITAL 4.2.7.2.686 Pradip as [id number] [address] 2021-10-25 2021-10-26 Emergency X EVON [facility] ERT [id number] Univers 21:55:00 02:33:00 WAKILI ity of [facility] 2021-10-25 2021-10-26 Emergency Evon [facility] 1.2.303.807 [id number] Univers 21:55:00 02:33:00 Tramaine THOMAS 350.1.13.10 ity of [place]2.[place].2.[place] [id number] [facility] [address] 2021-10-25 2021-10-25 Orders Doctor RAYO 1.2.840.114 [id number] Univers 00:00:00 00:00:00 Only Unassigned, RANDI 350.1.13.10 ity of [place] [facility] 4.2.7.2.[id number] [facility] [address] 2021-10-24 2021-10-24 Telephone Kelechi [facility] 1.2.126.954 [id number] Univers 00:00:00 [facility]:00:00 [facility] 350.1.13.10 it y of SURGICAL 4.2.7.2.686 Pradip as SPECIALTI [id number] Il dical 370 [facility] 2021-10-20 2021-10-20 Outpatient R KELECHI [facility] [id number] Univers 20:00:00 20:37:00 JOHN ity [facility] 2021-10-20 2021-10-20 Urgent [facility] 1.2.840.114 [id number] Univers 19:54:07 20:37:00 Care [facility] 350.1.13.10 it y of [place] 4.2.7.2.686 Pradip as JF?BLEA [id number] Il dical [facility] [address] [place] MEDICAL OFFICE BUILDING 2021-10-08 2021-10-08 Patient John [facility] 1.2.840.114 [id number] Univers 00:00:00 00:00:00 Secure Msg Therese MULTISPEC 350.1.13.10 ity of [place].2.[address] [place] [address] [id number] [facility] AND [facility] [address] [facility] 2021-09-21 2021-09-21 [facility], Ang - Db [facility] 1.2.840.1 14 [id number] Univers 11:36:49 11:51:49 [facility] 350.1.13.10 ity of [place] 4.2.7.2.686 Pradip as Jf?Blea [phone] [facility] 353 [facility] Office [facility] 2021-09-21 2021-09-21 Outpatient [facility] [id number] Univers 11:30:00 11:34:53 THERESE [facility] 2021-09-21 2021-09-21 Office [facility] 1.2.840.114 [id number] Univers 11:04:06 11:34:53 Visit [facility] 350.1.13.10 it y of [place] 4.2.7.2.686 Pradip as JF?BLEA [id number] [facility] 220 [facility] OFFICE [facility] 2021-09-14 2021-09-14 Outpatient [facility] [id number] Univers 11:00:00 11:00:00 [facility] 2021-09-13 2021-09-13 Telephone [facility] 1.2.686.954 [id number] Univers 00:00:00 00:00:00 Therese [place] 350.1.13.10 i ty [facility] [place]2.7.2.[place] [phone] [facility] [address] [facility] 2021-09-10 2021-09-10 Outpatient R ASHVIN [facility] [id number] Univers 14:30:00 14:30:00 [facility] 2021-08-21 2021-08-21 Outpatient R FAN BOUCHER [facility] [id number] Univers 14:45:00 14:45:[facility] 2021-08-13 2021-08-13 Outpatient R ASHVIN [facility] [id number] Univers 09:30:00 09:30:00 [facility] 2021-08-13 2021-08-13 Refill [facility] 1.2.840.114 [id number] Univers 00:00:00 00:00:00 [facility] 350.1.13.10 it y of [place] 4.2.7.2.686 Pradip as Jf?Blea [id number] [address] [facility] 2021-08-10 2021-08-10 Outpatient Adrienne ROSARIO [facility] [id number] Univers 13:30:00 13:30:00 [facility] 2021-08-10 2021-08-10 Telephone Ashvin [facility] 1.2.840.114 [id number] Univers 00:00:00 00:00:00 [facility] 350.1.13.10 it y of [place] 4.2.7.2.686 Pradip as Jf?Blea [phone] [address] 2021-08-09 2021-08-09 Supriya Najera 1.2.840.114 [id number] Univers 00:00:00 00:00:00 Triage RANDI 350.1.13.10 it y of [facility] 4.2.7.2.686 Pradip as [id number] [address] 2021-08-09 2021-08-09 Supriya Najera 1.2.840.114 [id number] Univers 00:00:00 00:00:00 Triage RANDI 350.1.13.10 it y of [facility] 4.2.7.2.686 Pradip as [id number] [address] 2021-08-08 2021-08-08 Outpatient Adrienne ROSARIO [facility] [id number] Univers 12:00:00 12:00:00 [facility] 2021-08-06 2021-08-06 Jose Tavares [facility] 1.2.840.114 [id number] Univers 00:00:00 00:00:00 Leoncio [employer]PER[employer] 350.1.13.[address] [facility] 4.2.7.2.686 Pradip as MATERNAL [phone] Med ical & CHILD [address] [place] [address] 2021-08-06 2021-08-06 Jose Tavares [facility] 1.2.840.114 [id number] Univers 00:00:00 00:00:00 Leoncio [employer] SUPERVIS[employer] 350.1.13.[address] [facility] 4.2.7.2.686 Pradip as MATERNAL [phone] Med ical & CHILD 107 [facility] 2021-08-05 2021-08-05 [facility] 1.2.840.114 [id number] Univers 00:00:00 00:00:00 [facility] 350.1.13.10 i ty of [place].2.[place] [phone] Il dical nal [address] [place] [address] 2021-08-05 2021-08-05 [facility] 1.2.840.114 [id number] Univers 00:00:00 00:00:00 [facility] 350.1.13.10 i ty of [place] 4.2.7.2.[place] Profess[place] [phone] Il dic[address] 2021-07-29 2021-07-29 Telephone Jen [facility] 1.2.840.114 [id number] Univers 00:00:00 00:00:00 [facility] 350.1.13.10 ity of CLIN[place].2.[place] [id number] [address] 2021-07-29 2021-07-29 Telephone SUE Li 1.2.840.114 [id number] Univers 00:00:00 00:00:00 [facility] 350.1.13.10 ity of CL[place] [id number] [address] 2021-07-25 2021-07-25 Office Manju Ferrera [facility] 1.2.840.11 [id number] Univers 16:16:45 16:46:45 Visit Simone Li [facility] 350.1.13 .10 ity of CLINICS [place]2.[place] [id number] [address] 2021-07-25 2021-07-25 Office Manju Ferrera [facility] 1.2.840.11 [id number] Univers 16:16:45 16:46:45 Visit Simone Li [facility] 350.1.13 .10 ity of [facility] 4[place].2.[address] [place] [phone] [facility] [address] [place] 2021-07-25 2021-07-25 Outpatient R SIMONE LI [facility] [id number] Univers 16:30:00 16:30:00 JENSIMONE Barkley ity of [facility] 2021-07-19 2021-07-19 [facility] 1.2.840.114 [id number] Univers 00:00:00 00:00:00 Jamie Thomas 350.1.13.10 i [place] [phone] [facility] [address] [facility] 2021-07-19 2021-07-19 Refkimberly [facility] 1.2.840.114 [id number] Univers 00:00:00 00:00:00 Jamie Thomas 350.1.13.10 [place] 4[place]2.7.2.[place] [phone] Il dical nal [address] [facility] 2021-07-10 2021-07-10 Emergency [facility] [id number] Univers 01:55:00 03:10:00 Romulo Thomas 350.1.13.10 [place].2.[place] [phone] [facility] [address] [place] 2021-05-29 2021-05-29 Urgent Provider, [facility] 1.2.840.114 [id number] Univers 10:54:04 11:14:04 Cornell Szymanski 350.1.13.10 ity of [place] 4.2.7.2.686 [place] Professio [phone] [facility] [address] [place] [address] 2021-05-29 2021-05-29 Outpatient R DIXIE [facility] [id number] Univers 11:00:00 11:00:00 CORNELL ity of [facility] 2021-05-08 2021-05-08 Telephone RAYO Tucker 1.2.840.114 [id number] Univers 00:00:00 00:00:00 Vicky BRYAN 350.1.13.10 ity of HOSPITAL 4.2.7.2.686 Pradip as [phone] [address] 2021-05-05 2021-05-05 Telephone RAYO Tucker 1.2.840.114 84 [id number] Univers 00:00:00 00:00:00 Vicky BRYAN 350.1.13.10 ity of HOSPITAL 4.2.7.2.686 Pradip as [phone] [address] 2021-05-04 2021-05-04 Transition Dano 1.2.840.3 [id number] Univers 00:00:00 00:00:00 of Care Leena 47884.1.1 i ty of 3.104.2.7 [place] .3.583829 Medica l .8 Branch 2021-05-01 2021-05-03 [facility] Dale Wallace 1.2.840.1 [id number] Univers 13:39:00 18:30:00 Encounter Marta Sheikh 88857.1.1 ity of 3.104.2.7 [place] .3.006426 Medica l .8 Branch 2021-05-01 2021-05-01 EXT [facility] OP Krishna, EXT MSRDP 1.2.840.114 1 [id number] [place] 00:00:00 00:00:00 Renea Maxwell LOCATION 350.1.13.58 Health 9.2.7.2.686 [id number] 0 2021-05-01 2021-05-01 Travel 1.2.840.1 1.2.393.795 1107 1032 Univers 00:00:00 00:00:00 37119.1.1 350.1.13.10 ity of 3.104.2.7 4.[place].7.3.698 [place] .3.379860 084.8 Medica l .8 Branch 2021-05-01 2021-05-01 EXT [facility] OP Keller, EXT MSRDP 1.2.840.114 1 [id number] SD 00:00:00 00:00:00 Renea Arreola LOCATION 350.1.13.58 Health 9.2.7.2.686 [id number] 0 2021-04-30 2021-04-30 Emergency Faulconer, 1.2.840.7 [id number] Univers 08:50:00 15:15:00 Katelyn 92984.1.1 ity of 3.104.2.7 [place] .3.877032 Medica l .8 Branch 2021-04-30 2021-04-30 Travel 1.2.840.1 1.2.898.609 2536 2921 Univers 00:00:00 00:00:00 89189.1.1 350.1.13.10 ity of 3.104.2.7 4.2.7.3.698 [place] .3.890916 084.8 Medica l .8 Branch 2021-04-28 2021-04-28 Emergency Jose D, 1.2.840.2 [id number] Univers 13:21:00 22:22:00 Nga S 41227.1.1 ity of 3.104.2.7 [place] .3.740927 Medica l .8 Branch 2021-04-28 2021-04-28 Emergency X JOSE D, [facility] ERT [id number] Univers 13:21:00 22:22:00 NGA ity of [facility] 2021-04-28 2021-04-28 Travel 1.2.840.1 1.2.125.172 7228 5024 Univers 00:00:00 00:00:00 69893.1.1 350.1.13.10 ity of 3.104.2.7 4.2.7.3.698 [place] .3.654947 084.8 Medica l .8 Branch 2021-04-27 2021-04-27 Emergency Morrical, 1.2.840.4 [id number] Univers 04:25:00 07:49:00 Dinesh Nascimento 33398.1.1 it y of 3.104.2.7 [place] .3.791997 Medica l .8 Branch 2021-04-26 2021-04-26 Emergency June, 1.2.840.1 [id number] Univers 14:32:00 17:38:00 Latonya Espinosa 35541.1.1 ity of 3.104.2.7 [place] .3.404929 Medica l .8 Branch 2021-04-26 2021-04-26 Travel 1.2.840.1 1.2.771.756 9525 6711 Univers 00:00:00 00:00:00 99302.1.1 350.1.13.10 ity of 3.104.2.7 4.2.7.3.698 [place] .3.682236 084.8 Medica l .8 Branch 2021-04-20 2021-04-20 Telephone Andreea 1.2.840.2 [id number] Univers 00:00:00 00:00:00 , Jaqui Chisholm 22179.1.1 it y of 3.104.2.7 [place] .3.015293 Medica l .8 Branch 2021-04-08 2021-04-10 Hospital [facility], 1.2.840.2 [id number] [id number] Univers 11:36:00 11:14:00 Florinda Fulton Karel 53479.1.1 ity of 3.104.2.7 [place] .3.513202 Medica l .8 Branch 2021-04-09 2021-04-09 Outpatient Adrienne VALDEZ [facility] [id number] Univers 09:00:00 09:00:00 JIMBO ity o f [facility] 2021-04-08 2021-04-08 Anesthesia Rodrigo Leo 1.2.840.1 10 [id number] Univers 13:48:00 19:52:00 Event Tyree Moura 92459.1.1 ity of 3.104.2.7 [place] .3.234367 Medica l .8 Branch 2021-04-08 2021-04-08 Nurse Angel, 1.2.840.6 [id number] 939 Univers 00:00:00 00:00:00 Triage Latosha D 87323.1.1 ity of 3.104.2.7 [place] .3.717958 Medica l .8 Branch 2021-04-08 2021-04-08 Orders Doctor 1.2.840.2 [id number] [id number] Univers 00:00:00 00:00:00 Only Unassigned, 22154.1.1 ity of [place] 3.104.2.7 [place] .3.417207 Medica l .8 Branch 2021-04-08 2021-04-08 Travel 1.2.840.1 1.2.506.080 6328 7507 Univers 00:00:00 00:00:00 66463.1.1 350.1.13.10 ity of 3.104.2.7 4.2.7.3.698 [place] .3.592846 084.8 Medica l .8 Branch 2021-04-06 2021-04-06 Hospital Romulo Flores 1.2.840.7 [id number] Univers 10:52:00 13:55:00 Encounter 05666.1.1 it y of 3.104.2.7 [place] .3.436324 Medica l .8 Branch 2021-04-06 2021-04-06 Travel 1.2.840.1 1.2.335.944 9262 3122 Univers 00:00:00 00:00:00 21623.1.1 350.1.13.10 ity of 3.104.2.7 4.2.7.3.698 [place] .3.451197 084.8 Medica l .8 Branch 2021-03-30 2021-03-30 Outpatient Adrienne VALDEZ [facility] [id number] Univers 09:00:00 09:00:00 JIMBO chaidezy o f [facility] 2021-03-29 2021-03-29 Telephone Duc 1.2.840.9 [id number] Univers 00:00:00 00:00:00 Romulo 95110.1.1 ity of 3.104.2.7 [place] .3.918987 Medica l .8 Branch 2021-03-27 2021-03-27 Outpatient Adrienne VALDEZ, [facility] [id number] Univers 13:15:00 13:15:00 ROSSUSYNDA ity o f [facility] 2021-03-27 2021-03-27 Ancillary Courtney, 1.2.840.5 [id number] [id number] Univers 10:21:35 11:21:35 Procedure Edwigenda R 07859.1.1 ity of 3.104.2.7 [place] .3.360728 Medica l .8 Branch 2021-03-27 2021-03-27 Routine Courtney, 1.2.840.8 [id number] 304 Univers 08:34:05 10:32:28 Bhartia R 65147.1.1 ity of Visit 3.104.2.7 [place] .3.988002 Medica l .8 Branch 2021-03-27 2021-03-27 Mouse Breeder Royce, 1.2.840.7 [id number] 83 [id number] Univers 08:01:19 08:33:20 Visit Jayme R 74212.1.1 ity of 3.104.2.7 [place] .3.230738 Medica l .8 Branch 2021-03-27 2021-03-27 Abstract Valdez, 1.2.840.9 [id number] 8387 8396 Univers 00:00:00 00:00:00 Rossusynda R 95657.1.1 i ty of 3.104.2.7 [place] .3.080964 Medica l .8 Branch 2021-03-27 2021-03-27 Travel 1.2.840.1 1.2.075.196 2668 6797 Univers 00:00:00 00:00:00 45909.1.1 350.1.13.10 ity of 3.104.2.7 4.2.7.3.698 [place] .3.326887 084.8 Medica l .8 Branch 2021-03-23 2021-03-23 Ancillary Valdez, 1.2.840.8 [id number] 10229 Univers 09:48:01 10:48:01 Procedure Jimbo R 03853.1.1 ity of 3.104.2.7 [place] .3.753761 Medica l .8 [place] 2021-03-23 2021-03-23 Routine Courtney, 1.2.840.7 [id number] 049 Univers 08:06:10 08:53:07 Edwigenda R 85369.1.1 ity of Visit 3.104.2.7 [place] .3.349221 Medica l .8 [place] 2021-03-23 2021-03-23 [facility] [id number] Univers 08:15:00 08:15:00 JIMBO ity o f [facility] 2021-03-23 2021-03-23 Travel 1.2.840.1 1.2.031.155 3477 1834 Univers 00:00:00 00:00:00 61045.1.1 350.1.13.10 ity of 3.104.2.7 4.2.7.3.698 [place] .3.373998 084.8 Medica l .8 [place] 2021-03-22 2021-03-22 Demetrio Araya, 1.2.840.9 [id number] 837 [id number] Univers 00:00:00 00:00:00 Management Romulo 77087.1.1 i ty of 3.104.2.7 [place] .3.425643 Medica l .8 [place] 2021-03-19 2021-03-19 Outpatient R [facility] [id number] Univers 13:30:00 13:30:00 ity of [facility] 2021-03-19 2021-03-19 Telemedici Jayme Crane 1.2.840.1 [id number] Univers 07:48:20 12:14:41 ne Visit Faculty, Abel Jo [facility] 82189.1.1 ity of 3.104.2.7 [place] .3.304772 Medica l .8 [place] 2021-02-28 2021-02-28 Telephone Courtney 1Kareem2.840.5 [id number] 831 [id number] Univers 00:00:00 00:00:00 Jimbo Deleon 80347.1.1 i ty of 3.104.2.7 [place] .3.159397 Medica l .8 [place] 2021-02-28 2021-02-28 Case Chaitanya, 1.2.840.5 [id number] [id number] Univers 00:00:00 00:00:00 Management Leoncio 99355.1.1 ity of 3.104.2.7 [place] .3.280962 Medica l .8 [place] 2021-02-27 2021-02-27 [facility] [id number] Univers 08:00:00 08:00:00 ROSSUSYNDA ity o f [facility] 2021-02-27 2021-02-27 Telephone Chaitanya, 1.2.840.3 [id number] Univers 00:00:00 00:00:00 Leoncio 62997.1.1 ity of 3.104.2.7 [place] .3.799754 Medica l .8 [place] 2021-02-21 2021-02-21 Out[facility] [id number] Univers 07:45:00 07:45:00 ROSSUSYNDA ity o f [facility] 2021-02-20 2021-02-20 Patient Kristopher 1.2.840.8 [id number] Univers 00:00:00 00:00:00 Juan F Read 92154.1.1 ity of Juan 3.104.2.7 [place] .3.666997 Medica l .8 [place] 2021-02-19 2021-02-19 Telemedici Jimbo Valdez 1.2.840.1 10 [id number] Univers 11:38:40 14:24:27 ne Visit Gurjit Summers 85875.1.1 ity of Faculty, Abel [facility] 3.104.2.7 [place] .3.769296 Medica l .8 [place] 2021-02-19 2021-02-19 Outpatient [facility] [id number] Univers 11:00:00 11:00:00 ROSSUSYNDA ity o f [facility] 2021-02-18 2021-02-18 Nurse Robi 1.2.840.1 [id number] Univers 00:00:00 00:00:00 Triage Micaela 70706.1.1 ity of 3.104.2.7 [place] .3.871382 Medica l .8 [place] 2021-02-18 2021-02-18 Nurse Ingrid [place] 1.2.840.9 [id number] Univers 00:00:00 00:00:00 Triage 47227.1.1 ity of 3.104.2.7 [place] .3.564643 Medica l .8 [place] 2021-02-14 2021-02-14 Out[facility] [id number] Univers 18:20:00 18:20:00 VIVIENNE sheth [facility] 2021-02-14 2021-02-14 Urgent Vivienne Hoffmann 1.2.840.2 [id number] Univers 17:31:45 17:56:04 Care Provider, [facility] 01423.1.1 ity of 3.104.2.7 [place] .3.624184 Medica l .8 [place] 2021-02-14 2021-02-14 Laboratory Vivienne Hoffmann 1.2.840.1 [id number] Univers 17:20:00 17:40:00 Only Lab, Adc Fam Pob I 07259.1.1 ity of 3.104.2.7 [place] .3.861782 Medica l .8 [place] 2021-02-14 2021-02-14 Outpatient Adrienne HOFFMANN [facility] [id number] Univers 17:20:00 17:20:00 VIVIENNE sheth [facility] 2021-02-14 2021-02-14 Travel 1.2.840.1 1.2.308.374 6835 8662 Univers 00:00:00 00:00:00 48992.1.1 350.1.13.10 ity of 3.104.2.7 4.2.7.3.698 [place] .3.655150 084.8 Medica l .8 Branch 2021-02-08 2021-02-08 Orders Doctor 1.2.840.1 [id number] 825 Univers 00:00:00 00:00:00 Only Unassigned, 71929.1.1 ity of [place] 3.104.2.7 [place] .3.583855 Medica l .8 [place] 2021-02-07 2021-02-07 Routine Courtney, 1.2.840.0 [id number] Univers 14:38:38 15:29:28 Rossusynda R 50796.1.1 ity of Visit 3.104.2.7 [place] .3.748179 Medica l .8 [place] 2021-02-07 2021-02-07 Outpatient R COURTNEY, [facility] [id number] Univers 14:45:00 14:45:00 EDWIGENDA ity o f [facility] 2021-02-07 2021-02-07 Travel 1.2.840.1 1.2.184.130 4405 6869 Univers 00:00:00 00:00:00 27045.1.1 350.1.13.10 ity of 3.104.2.7 4.2.7.3.698 [place] .3.847294 084.8 Medica l .8 [place] 2021-02-05 2021-02-05 Abstract Courtney, 1.2.840.1 [id number] 8229 4670 Univers 00:00:00 00:00:00 Roshunda R 97128.1.1 i ty of 3.104.2.7 [place] .3.694748 Medica l .8 [place] 2021-02-02 2021-02-02 Mouse Breeder Dorothy 1.2.840.9 [id number] 050003 Univers 13:31:41 14:01:41 Visit Scott 52281.1.1 ity of s, Rios 3.104.2.7 [place] .3.774911 Medica l .8 [place] 2021-02-02 2021-02-02 Outpatient P [facility] [id number] Univers 13:30:00 13:30:00 ity of [facility] 2021-02-02 2021-02-02 Telephone Anika, 1.2.840.8 [id number] Univers 00:00:00 00:00:00 Aleshia Camejo 67022.1.1 i ty of 3.104.2.7 [place] .3.998995 Medica l .8 [place] 2021-02-01 2021-02-01 Outpatient R [facility] [id number] Univers 10:00:00 10:00:00 ity of [facility] 2021-01-31 2021-01-31 [facility] 1.2.955.393 [id number] [id number] Univers 00:00:00 00:00:00 Jimbo Deleon DIVERSIFIED CROPS SUPERVISOR 350.1.13.[address] [facility] 4.2.7.2.686 Pradip as MATERNAL [phone] [facility] ical & CHILD [address] [place] [address] 2021-01-26 2021-01-26 [facility] 1.2.065.495 4406 7929 Univers 09:58:34 11:24:10 Aleshia Camejo DIVERSIFIED CROPS SUPERVISOR 350.1.13.10 ity of Visit REGIONAL 4.2.7.2.686 Pradip as MATERNAL [phone] [facility] ical & CHILD [address] [place] [address] 2021-01-26 2021-01-26 Outpatient [facility] [id number] Univers 10:00:00 10:00:00 ALESHIA vinson [facility] 2021-01-23 2021-01-23 Eulogio Gonzalez 1.2.357.442 [id number] 5859 Univers 00:00:00 00:00:00 Management RANDI 350.1.13.10 ity of [facility] 4.2.7.2.[phone] [facility] 013 [place] 2021-01-12 2021-01-12 Outpatient [facility] [id number] Univers 08:15:00 08:15:00 JIMBO sheth o karel [facility] 2021-01-08 2021-01-08 Outpatient Adrienne VALDEZ [facility] [id number] Univers 13:45:00 13:45:00 JIMBO vinson [facility] 2021-01-01 2021-01-01 Outpatient Adrienne LOCK [facility] [id number] Univers 14:00:00 14:00:00 JAMIE [facility] 2020-12-25 2020-12-25 Office Faculty, Abel Jo [facility] 1.2 .840.114 [id number] Univers 14:30:12 15:20:56 Visit Gurjit Summers DIV[employer]IFIED CROPS SUPERVISOR 350.1.13.10 ity of REGIONAL 4.2.7.2.686 Pradip as MATERNAL [phone] [facility] & [address] 2020-12-25 2020-12-25 Outpatient R GURJIT SUMMERS [facility] [id number] Univers 14:30:00 14:30:00 GURJIT SUMMERS [facility] 2020-12-11 2020-12-11 Outpatient [facility] [id number] Univers 09:00:00 09:00:00 JIMBO vinson [facility] 2020-12-05 2020-12-05 Dena Valdez [facility] 1.2.840.114 [id number] Univers 00:00:00 00:00:00 Edwigegradytoñito Adrienne DIV[employer]IFIED CROPS SUPERVISOR 350.1.13.10 ity of REGIONAL 4.2.7.2.686 Pradip as MATERNAL [id number] [facility] & [address] 2020-12-04 2020-12-04 Mouse Breeder Ultrasound, [facility] 1.2 .840.114 [id number] Univers 13:04:35 14:19:35 Visit Jayme Crane DIV[employer]IFIED CROPS SUPERVISOR 350.1.13.10 ity of REGIONAL 4.2.7.2.686 Pradip as MATERNAL [phone] [facility] & CHILD [address] [place] [address] 2020-12-04 2020-12-04 Outpatient P [facility] [id number] Univers 13:00:00 13:00:[facility] 2020-11-30 2020-11-30 Jose Lock [facility] 1.2.840.114 [id number] Univers 00:00:00 00:00:00 Jamie Thomas 350.1.13.10 i ty [facility] [place].2.7.2.686 [place] [facility] [phone] Il dical [facility] [address] [facility] 2020-11-27 2020-11-27 Outpatient R [facility] [id number] Univers 13:30:00 13:30:00 ity [facility] 2020-11-16 2020-11-16 Outpatient R [facility] [id number] Univers 15:00:00 15:00:00 ity [facility] 2020-11-11 2020-11-11 Telephone [facility] 1.2.590.503 [id number] Univers 00:00:00 00:00:00 Jimbo Deleon DIVERSIFIED CROPS SUPERVISOR 350.1.13.[address] [facility] 4.2.7.2.686 Pradip as MATERNAL [phone] Med ical & CHILD [address] [place] [address] 2020-11-05 2020-11-06 Emergency [facility] 1.2.522.026 [id number] Univers 22:07:00 01:11:00 Tramaine [place] 350.1.13.10 ity [facility] 4.2.7.2.[place] [phone] [facility] 084 [place] 2020-11-05 2020-11-06 Emergency X [facility] ERT [id number] Univers 22:07:00 01:11:00 [facility] 2020-11-05 2020-11-05 Nurse RAYO Ortiz 1.2.840.114 [id number] Univers 00:00:00 00:00:00 Triage Latosha BRYAN 350.1.13.10 i ty of [facility] 4.2.7.2.[phone] [facility] 019 [place] 2020-11-02 2020-11-02 Outpatient [facility] [id number] Univers 14:00:00 14:00:00 JIMBO sheth o f [facility] 2020-11-02 2020-11-02 Routine [facility] 1.2.840.114 [id number] Univers 12:44:37 13:13:31 Roshunda R DIVERSIFIED CROPS SUPERVISOR 350.1.13.[address] [facility] 4.2.7.2.686 Pradip as MATERNAL [phone] [facility] ical & CHILD [address] [place] [address] 2020-10-31 2020-10-31 Office Sander [facility] 1.2.840.114 [id number] Univers 13:34:07 14:47:54 Visit Critical access hospital 350.1.13.10 it y of [place] 4[place]2.7.2.[address] [place] [facility] [phone] [facility] 136 [place] 2020-10-31 2020-10-31 Out[facility] 006 [id number] Univers 13:30:00 13:30:00 ity of [facility] 2020-10-31 2020-10-31 Transition Hudson Robertson 1.2.840.114 [id number] Univers 00:00:00 00:00:00 of Care Mela Infante 350.1.13.10 i ty of [place] 4.2.7.2.[address] [phone] [facility] [address] [place] 2020-10-25 2020-10-29 [facility] Latonya Watkins 1.2.84 0.114 [id number] Univers 02:42:00 11:58:00 Encounter Jo Rivera 350.1.13.10 ity of [facility] 4.2.7.2.[phone] [facility] 098 [place] 2020-10-25 2020-10-25 Telephone [facility] 1.2.896.973 [id number] Univers 00:00:00 00:00:00 Roshunda R DIVERSIFIED CROPS SUPERVISOR 350.1.13.[address] [facility] 4.2.7.2.686 Pradip as MATERNAL [phone] [facility] ical & CHILD [address] [place] [address] 2020-10-21 2020-10-24 [facility] Tramaine Barnard 1.2.840. 114 [id number] Univers 23:41:00 17:12:00 Encounter Blank Shaw 350.1.13.10 ity of [facility] 4.2.7.2.[phone] [facility] 099 [place] 2020-10-23 2020-10-23 Outpatient R [facility] [id number] Univers 15:00:00 15:00:00 ity of [facility] 2020-10-21 2020-10-21 Nurse Shorty CADE 1.2.840.114 [id number] Univers 00:00:00 00:00:00 Triage Sam RANDI 350.1.13.10 ity of [facility] 4.2.7.2.[phone] [facility] 019 [place] 2020-10-20 2020-10-20 Emergency Ivonne [facility] 1.2.965.986 [id number] Univers 15:30:00 18:50:00 Yun Thomas 350.1.13.10 i ty [facility] 4.2.7.2.686 [place] [phone] [facility] 084 [place] 2020-10-20 2020-10-20 Outpatient R [facility] [id number] Univers 18:30:00 18:30:00 ity of [facility] 2020-10-20 2020-10-20 Telephone Courtney [facility] 1.2.031.753 [id number] Univers 00:00:00 00:00:00 Jimbo Deleon DIVERSIFIED CROPS SUPERVISOR 350.1.13.10 ity of [address]686 Pradip as MATERNAL [phone] Med ical & CHILD 107 [facility] 2020-10-20 2020-10-20 Orders Doctor RAYO 1.2.840.114 [id number] Univers 00:00:00 00:00:00 Only Unassigned, RANDI 350.1.13.10 ity of [place] [facility] 4.2.7.2.[phone] [facility] 009 [place] 2020-10-16 2020-10-16 Telemedici Faculty, Abel [facility] 1.2.840.114 [id number] Univers 14:30:00 15:00:00 ne Visit Blanca Sloan DIVERSIFIED CROPS SUPERVISOR 350.1 .13.10 ity of REGIONAL 4.2.7.2.686 Pradip as MATERNAL [phone] [facility] ical & CHILD [address] [place] [address] 2020-10-16 2020-10-16 Outpatient R [facility] [id number] Univers 14:30:00 14:30:00 ity of [facility] 2020-10-09 2020-10-09 Outpatient R [facility] [id number] Univers 13:00:00 13:00:00 ity of [facility] 2020-09-27 2020-09-27 Telephone Risk, [facility] 1.2.689.281 [id number] Univers 00:00:00 00:00:00 Ang-Rmchp-N DIVERSIFIED CROPS SUPERVISOR 350.1.13.10 ity of p/High REGIONAL 4.2.7.2.686 Pradip as MATERNAL [phone] Med ical & CHILD [address] [place] [address] 2020-09-21 2020-09-21 Telephone Risk, [facility] 1.2.709.736 [id number] [id number] Univers 00:00:00 00:00:00 Ang-Rmchp-N DIVERSIFIED CROPS SUPERVISOR 350.1.13.10 ity of p/High REGIONAL 4.2.7.2.686 Pradip as MATERNAL [phone] [facility] ical & CHILD [address] [place] [address] 2020-09-20 2020-09-20 Outpatient R [facility] [id number] Univers 08:30:00 08:30:00 ity of [facility] 2020-09-15 2020-09-15 Abstract Courtney [facility] 1.2.840.114 [id number] Univers 00:00:00 00:00:00 Jimbo R DIVERSIFIED CROPS SUPERVISOR 350.1.13.10 ity of REGIONAL 4.2.7.2.686 Pradip as MATERNAL [phone] [facility] ical & CHILD [address] [place] [address] 2020-09-14 2020-09-14 Outpatient R [facility] [id number] Univers 15:30:00 15:30:00 ity of [facility] 2020-09-14 2020-09-14 Routine Risk, Ass-Xibel-Up/High [facility] 1. 2.840.114 [id number] Univers 08:46:13 09:13:48 Gurjit Summers DIVERSIFIED CROPS SUPERVISOR [id number] ity of Visit Mary Carmen Lacey REGIONAL [id number] [place] MATERNAL [phone] [facility] ical & CHILD [address] [place] [address] 2020-09-14 2020-09-14 [facility] 1.2 .840.114 [id number] [facility] 08:07:32 08:37:32 Visit Gurjit Summers DIVERSIFIED CROPS SUPERVISOR [id number] ity of REGIONAL [id number] Pradip as MATERNAL [phone] [facility] ical & CHILD [address] [facility] 2020-09-14 2020-09-14 Outpatient R GURJIT SUMMERS [facility] [id number] Univers 08:00:00 08:00:00 GURJIT SUMMERS [facility] 2020-09-11 2020-09-11 Outpatient R GURJIT SUMMERS [facility] [id number] Univers 11:00:00 11:00:00 GURJIT SUMMERS [facility] 2020-09-11 2020-09-11 Telephone Faculty, [facility] 1.2.840.114 [id number] Univers 00:00:00 00:00:00 [facility] DIVERSIFIED CROPS SUPERVISOR [id number] ity of [facility] [id number] Pradip as MATERNAL [phone] [facility] ical & CHILD [address] [place] [address] 2020-09-08 2020-09-08 [facility] 1.2.840.114 [id number] Univers 00:00:00 00:00:00 Jimbo R DIVERSIFIED CROPS SUPERVISOR [id number] [facility] [id number] Pradip as MATERNAL [phone] [facility] ical & CHILD [address] [place] [address] 2020-09-07 2020-09-07 Telephone Faculty, [facility] 1.2.840.114 [id number] Univers 00:00:00 00:00:00 [facility] Rmchp DIVERSIFIED CROPS SUPERVISOR [id number] ity of [facility] [id number] Pradip as MATERNAL [phone] [facility] ical & CHILD [address] [place] [address] 2020-09-05 2020-09-05 Telephone Courtney [facility] [id number] Univers 00:00:00 00:00:00 Roshunda R DIVERSIFIED CROPS SUPERVISOR [id number] ity of REGIONAL [id number] Pradip as MATERNAL [phone] [facility] ical & CHILD [address] [place] [address] 2020-09-04 2020-09-04 Outpatient R [facility] [id number] Univers 15:30:00 15:30:00 ity of [facility] 2020-09-01 2020-09-01 [facility] [id number] Univers 08:00:00 08:00:00 ROSHUNDA ity o f [facility] 2020-08-28 2020-08-28 Outpatient R [facility] [id number] Univers 13:00:00 13:00:00 ity of [facility] 2020-08-25 2020-08-25 [place] [facility] [id number] Univers 00:00:00 00:00:00 Roshunda R DIVERSIFIED CROPS SUPERVISOR 350.1.13.10 ity of REGIONAL 4.2.7.2.686 Pradip as MATERNAL [phone] [facility] ical & CHILD [address] [place] [address] 2020-08-24 2020-08-24 [facility] 1.2.535.950 [id number] Univers 00:00:00 00:00:00 Roshunda R DIVERSIFIED CROPS SUPERVISOR 350.1.13.10 ity of REGIONAL 4.2.7.2.686 Pradip as MATERNAL [phone] [facility] ical & CHILD [address] [place] [address] 2020-08-23 2020-08-23 Initial [facility] 1.2.840.114 [id number] Univers 08:39:26 10:59:06 Roshunda R DIVERSIFIED CROPS SUPERVISOR 350.1.13.10 ity of Visit REGIONAL 4.2.7.2.686 Pradip as MATERNAL [phone] [facility] ical & CHILD [address] [place] [address] 2020-08-23 2020-08-23 Outpatient R [facility] [id number] Univers 08:00:00 08:00:00 ity of [facility] 2020-08-23 2020-08-23 Orders Doctor RAYO 1.2.840.114 [id number] Univers 00:00:00 00:00:00 Only Unassigned, RANDI 350.1.13.10 ity of [facility] 4.2.7.2.686 Pradip as [phone] [address] 2020-08-22 2020-08-22 Office Jen, [facility] 1.2.840.114 [id number] Univers 07:51:06 09:54:19 Visit Simone Thomas 350.1.13.10 ity of [place] [phone] [place] dic[address] 2020-08-22 2020-08-22 Outpatient R SIMONE LI [facility] [id number] Univers 08:00:00 08:00:00 SIMONE LI ity of [facility] 2020-08-22 2020-08-22 Letter Jen [facility] 1.2.840.114 [id number] Univers 00:00:00 00:00:00 (Out) Simone Thomas 350.1.13.10 it[place] of [place] [phone] [address] 2020-08-10 2020-08-10 Patient Kat Ferrer 1.2.840.114 [id number] Univers 00:00:00 00:00:00 Outreach E Infante 350.1.13.10 i ty of [place] 4.2.7.2.[phone] [facility] [address] 2020-08-09 2020-08-09 Emergency nullFlavo [facility] [id number] Memoria 02:23:14 05:34:00 r Billy 01 l Ludell Ilsa 2020-08-09 2020-08-09 Emergency nullFlavo [facility] [id number] Memoria 02:23:14 05:34:00 r Billy 01 l Ludell Ilsa 2020-08-08 2020-08-09 Outpatient Renea Stark [facility] [id number] 21:23:14 00:34:00 01 2020-08-08 2020-08-09 Emergency E RENEA STARK FB [facility]FB 7501 MHFB 21:23:00 00:34:00 2020-08-08 2020-08-08 Emergency [facility] 1.2.686.669 [id number] Univers 19:30:00 20:48:00 Martha 350.1.13.10 i ty of [place] 4.2.7.2.686 [place] [phone] [address] 2020-08-07 2020-08-07 Emergency Neha, TRAUMA 1.2.491.396 [id number] Univers 06:08:00 07:14:00 [facility] 350.1.13.10 it y of 4.2.7.2.686 [facility] [phone] [address] 2020-08-05 2020-08-05 Emergency [facility] 1.2.808.019 [id number] Univers 05:31:00 07:18:00 Tramaine Thomas 350.1.13.10 ity of [place] 4.2.7.2.686 [place] [phone] [address] 2020-08-04 2020-08-04 Emergency [facility] 1.2.840.114 [id number] Univers 13:39:00 17:37:00 Latonya Thomas 350.1.13.10 ity of [place] 4.2.7.2.686 [facility] [place] [phone] [address] 2020-08-04 2020-08-04 Urgent Provider, [facility] Urgent Care [facility] 1.2.840.114 [id number] Univers 12:52:37 13:12:37 [facility] 350.1.13.10 ity of [place] 4.2.7.2.686 Pradip as Professio [phone] [facility] [address] [place] [address] 2020-08-04 2020-08-04 Outpatient R DIXIE [facility] [id number] Univers 13:00:00 13:00:00 CORNELL sheth of [facility] 2020-08-04 2020-08-04 Letter RAYO Mills 1.2.840.114 [id number] Univers 00:00:00 00:00:00 (Out) Lakesha Cruz RANDI 350.1.13.10 it y of HOSPITAL 4.2.7.2.686 Pradip as [phone] [address] 2020-08-03 2020-08-03 Urgent Pob1, Acute Care Clinic [facility] 1. 2.840.114 [id number] Univers 09:40:03 10:41:21 Care [facility] 350.1.13.10 ity of [place] 4.2.7.2.686 Pradip as Professio [phone] Il dical nal [address] [place] Office [facility] 2020-08-03 2020-08-03 Outpatient R [facility] [id number] Univers 10:00:00 10:00:00 ity [facility] 2020-08-03 2020-08-03 Nurse Supriya Gooden 1.2.840.114 [id number] Univers 00:00:00 00:00:00 Triage RANDI 350.1.13.10 it y of HOSPITAL 4.2.7.2.686 Pradip as [phone] [address] 2020-08-03 2020-08-03 Telephone Pob1, Acute [facility] 1.2.840.114 [id number] Univers 00:00:00 00:00:00 Care [facility] 350.1.13.10 ity of [place] 4.2.7.2.686 Pradip as Professio [phone] Il dical nal [address] [place] Office [facility] 2020-07-25 2020-07-25 Out[facility] [id number] Univers 13:00:00 13:00:00 WENTONG ity [facility] 2020-07-18 2020-07-18 Letter [facility] 1.2.840.114 [id number] Univers 00:00:00 00:00:00 (Out) [facility] 350.1.13.10 it y of Surgical 4.2.7.2.686 Pradip as Specialti [phone] Il dical es 198 [facility] 2020-07-17 2020-07-17 Telephone [facility] 1.2.840.114 [id number] Univers 00:00:00 00:00:00 Keshav [facility] 350.1.13.10 it y of Surgical 4.2.7.2.686 Pradip as Specialti [phone] Il dical es 198 [facility] 2020-07-06 2020-07-06 Outpatient R RUTHANN [facility] [id number] Univers 14:30:00 14:30:00 GREGORY ity of [facility] 2020-07-06 2020-07-06 Office [facility] 1.2.840.114 [id number] Univers 14:09:04 14:24:04 Visit [facility] 350.1.13.10 it y of Surgical 4.2.7.2.686 Pradip as Specialti [phone] Me dical es 198 [facility] 2020-07-06 2020-07-06 Letter [facility] 1.2.840.114 [id number] Univers 00:00:00 00:00:00 (Out) [facility] 350.1.13.10 it y of Surgical 4.2.7.2.686 Pradip as Specialti [phone] Il dical es 198 [facility] 2020-04-19 2020-04-19 Orders Doctor RAYO 1.2.840.114 [id number] Univers 00:00:00 00:00:00 Only Unassigned, RANDI 350.1.13.10 ity of [place] [facility] 4.2.7.2.[phone] [facility] [address] [place] 2020-04-04 2020-04-04 Patient Doctor BRENDON 1.2.977.754 [id number] Univers 00:00:00 00:00:00 Secure Msg Unassigned, Y HEALTH 350.1.13.10 ity of [place] [facility] 4.2.7.2.[phone] [facility] [address] [place] 2020-04-01 2020-04-03 Outpatient X PIETER DONALDSON [facility] SNS [id number] Univers 11:55:29 12:56:00 ity of [facility] 2020-04-01 2020-04-03 Emergency Todd Ezekiel Lindsey 1.2.840 .114 [id number] Univers 11:55:29 12:56:00 Pieter Donaldson 350.1.13.10 ity of [facility] 4.2.7.2.[phone] [facility] [address] [place] 2020-03-30 2020-03-30 Emergency X EVON [facility] ERT [id number] Univers 17:26:13 21:05:00 TRISHAJOSEE ity [facility] 2020-03-30 2020-03-30 Emergency Austyn Sinclair [facility] 1.2.840. 114 [id number] Univers 17:26:13 21:05:00 Tramaine Barnard S Martha 350.1.13.10 ity of [place] 4.2.7.2.686 [place] [phone] [address] 2020-03-20 2020-03-20 Outpatient R ASHVIN [facility] [id number] Univers 13:00:00 13:00:00 JAIMEWAGNER sheth [facility] 2020-03-20 2020-03-20 Telemedici [facility] 1.2.840.114 [id number] Univers 08:21:22 08:51:22 ne Visit Jamie Martha 350.1.13.10 ity of [place] 4.2.7.2.[place] [phone] [address] 2020-03-20 2020-03-20 Telephone Pcp, [facility] 1.2.276.431 [id number] Univers 00:00:00 00:00:00 Patient Martha 350.1.13.10 i ty of Does Not [place] 4.2.7.2.686 Pradip as Have A Professio [phone] [place] dic[address] 2019-08-20 2019-08-20 Hospital Rutledge Hannah [facility] 1.2.840.114 [id number] Univers 01:33:00 03:35:00 Encounter Cam Martha 350.1.13.10 ity of [place] 4.2.7.2.686 [place] [phone] [place] [address] [place] 2019-08-20 2019-08-20 Orders Doctor RAYO 1.2.840.114 [id number] Univers 00:00:00 00:00:00 Only Unassigned, RANDI 350.1.13.10 ity of [place] [facility] 4.2.7.2.[phone] [facility] [address] [place] 2019-08-13 2019-08-13 Abstract Anika, [facility] 1.2.840.114 [id number] Univers 00:00:00 00:00:00 Aleshia Camejo DIVERSIFIED CROPS SUPERVISOR 350.1.13.[address] [facility] 4.2.7.2.686 Pradip as MATERNAL [phone] [facility] ical & CHILD 107 [facility] 2019-08-11 2019-08-11 Mouse Breeder Ultrasound, Raegan [facility] 1.2 .840.114 [id number] Univers 15:12:02 15:59:30 Visit Donaldo Landrum DIVERSIFIED CROPS SUPERVISOR 350.1.13.[address] [facility] 4.2.7.2.686 Pradip as MATERNAL [phone] [facility] ical & CHILD 369 [facility] 2019-08-04 2019-08-04 Kat Lobo [facility] 1.2.840.114 [id number] Univers 00:00:00 00:00:00 Emma DIVERSIFIED CROPS SUPERVISOR 350.1.13.[address] [facility] 4.2.7.2.686 Pradip as MATERNAL [phone] [facility] ical & CHILD [address] [place] [address] 2019-08-03 2019-08-03 Telephone , [facility] 1.2.248.962 [id number] Univers 00:00:00 00:00:00 Pily-Salazar DIVERSIFIED CROPS SUPERVISOR 350.1.13.10 ity of p/High [facility] 4.2.7.2.686 Pradip as MATERNAL [phone] [facility] ical & CHILD [address] [place] [address] 2019-07-29 2019-07-29 RAYO Myers 1.2.812.949 [id number] Univers 00:00:00 00:00:00 Triage Tong RANDI 350.1.13.10 it y of [facility] 4.2.7.2.[phone] [facility] [address] [place] 2019-07-17 2019-07-17 RAYO Whitten 1.2.840.114 [id number] Univers 00:00:00 00:00:00 Triage Mira BRYAN 350.1.13.10 ity of HOSPITAL 4.2.7.2.[phone] [facility] [address] [place] 2019-07-15 2019-07-15 Routine Risk, Jcf-Xcvfx-Ff/High [facility] 1. 2.840.114 [id number] Univers 14:29:49 15:01:56 Mary Carmen Lacey DIVERSIFIED CROPS SUPERVISOR 350.1.13.10 ity of Visit REGIONAL 4.2.7.2.686 Pradip as MATERNAL [phone] [facility] ical & CHILD [address] [place] [address] 2019-07-15 2019-07-15 Orders Doctor RAYO 1.2.840.114 [id number] Univers 00:00:00 00:00:00 Only Unassigned, RANDI 350.1.13.10 ity of [place] [facility] 4.2.7.2.[phone] [facility] [address] [place] 2019-07-08 2019-07-08 Abstract [facility] 1.2.840.114 [id number] Univers 00:00:00 00:00:00 Aleshia Camejo DIVERSIFIED CROPS SUPERVISOR 350.1.13.10 ity of REGIONAL 4.2.7.2.686 Pradip as MATERNAL [phone] [facility] ical & CHILD [address] [place] [address] 2019-06-30 2019-06-30 Mouse Breeder 5, [facility] Room UNIVERSIT 1 .2.840.114 [id number] Univers 08:31:45 09:46:45 Visit Christina Barrios [facility] 350.1.13. 10 ity of Kat Nicholas CLINICS 4.2.7.2.[address] [place] [phone] [facility] [address] 2019-06-30 2019-06-30 Office BRENDON Barrios 1.2.840.114 [id number] Univers 07:51:20 08:31:12 Visit Christina Acosta [facility] 350.1.13.10 ity of CLINICS 4.2.7.2.[address] [place] [phone] [facility] [address] 2019-05-03 2019-05-03 Outpatient [facility] [id number] Univers 14:00:00 14:14:19 JAYME sheth [facility] 2019-04-05 2019-04-05 Outpatient R ADRIENNE RECIO [facility] [id number] Univers 15:30:00 14:50:30 ADRIENNE RECIO [facility] 2018-07-22 2018-07-22 Michele DANIELS, [facility] [id number] [place] 13:40:00 13:40:00 t; Priscila DESAI i, M.D. ans AUBREY, M.D. 2018-05-13 2018-05-13 Appointalfonso DANIELS [facility] [id number] [place] 15:40:00 15:40:00 t; Lorrie DESAI i, M.D. ans AUBREY, M.D. 2017-04-14 2017-04-14 Michele DANIELS, Health system [id number] [place] 15:30:00 15:30:00 t; Lorrie DESAI i, M.D. ans AUBREY, M.D. 2017-04-14 2017-04-14 Appointalfonso DANIELS, [facility] [id number] [place] 08:30:00 08:30:00 t; Priscila DESAI i, M.D. ans AUBREY, M.D. 2017-03-03 2017-03-03 Michele [facility] [id number] [place] 15:00:00 15:00:00 t; Lorrie DESAI i, M.D. ans AUBREY, M.D. 2016-12-30 2016-12-30 Michele DANIELS [facility] [id number] [place] 13:00:00 13:00:00 t; Priscila DESAI i, M.D. ans AUBREY, M.D. 2014-05-24 2014-05-24 [facility] [id number] Memoria 19:02:00 22:25:00 Emergency r [address] 2014-05-24 2014-05-24 [facility] [id number] Memoria 19:02:00 22:25:00 Emergency r [place] 00 l [facility] 2014-05-24 2014-05-24 Outpatient Torres 2.16.840. 2.16.840.1. [id number] 14:02:00 17:25:00 Marlon 1.031074. 250184.3.61 00 Mravin 3.615.0.1 5.0.101 01 Results Test Description Test Time Test Comments Results Result Comments Source TSH, THIRD GENERATION 2023-03-31 02:18:45 Test Item Value Reference Range Interpretation Comme nts TSH, THIRD GENERATION 0.591 UIU/ML 0.400-4.[address] has important pathology (test code = 2821) staff robin espinosa effective 01/29/2023. New patholo gy staff will provide uninter rupted, excellent patient care an d clinical consultation. S ee URL: [email or web address]. UNLESS OTHERWIS E INDICATED, ALL TESTING PERFORM ED AT [facility]. [address] [place] [address] MANAGER HEART FAILURE: CONRAD HENRY M.D. CLIA NUMBER [id number] CAP ACCREDITATION N O. [id number] HEMOGLOBIN [id number] 04:24:11 Test Item Value Reference Range Interpretation Comments HEMOGLOBIN A1c (test code = 00297) 5.2 % 4.2-5.6 POCT URINALYSIS W SPECIFIC [id number] 00:08:00 Test Item Value Reference Range Interpretation Comments POCT U SP GRAV (test code = 1.020 mg/dl 1.005-1.025 3255) POCT PH U (test code = 3254) 5 mg/dl 5-8 POCT U LEUK EST (test code = negative Negative - Negative 3) POCT U NIT (test code = 3262) negative Negative - Negative POCT U PROT (test code = Negative Negative - Negative 3259) POCT U GLU (test code = 3256) negative Negative - Negative POCT U KETONE (test code = negative Negative - Negative 3258) POCT U UROBILI (test code = negative 0.2-1 0) POCT U BILI (test code = negative Negative - Negative 3261) POCT U BLD (test code = 3257) negative Negative - Negative POCT U COLOR (test code = yellow 3266) POCT U APPEAR (test code = clear 3267) Lab Interpretation (test code Normal = 42059-6) [facility], RFLX [id number] 04:17:36 Test Item Value Reference Range Interpretation Comments HIV /2 4TH GEN, RFLX CONF (test NON-REACTIVE NON-REACTIVE code = 3514) [id number] 03:39:54 Test Item Value Reference Range Interpretation Comments RPR RESULT (test NON-REACTIVE NON-REACTIVE code = 3501) RPR TITER (test NOT INDIC. NOT INDIC. [facility] has important code = 3500) TITER pathology staff changes effective 01/29. New patholo gy staff will provide uninterrupted, excellent patie nt care and clinical consultation. S ee URL: [email or web address]. UNLESS OTHERWISE INDIC ATED, ALL TESTING PER FORMED AT [address] DIRECTOR: FIOR STOCK M.D. CLIA NUMBER [id number] CAP ACCREDITATION N O. [id number] GONORRHEA, NAAT, [id number] 20:58:03 Test Item Value Reference Range Interpretation Comments GONORRHEA, NAAT, NEGATIVE NEGATIVE Testing is performed with URINE (test code Ronel KAROLINE 6800/8800 = 97915) systems usingre al-time polymerase melvi n reaction (PCR) method. A negative result does not exclude low level infection , specimensamplin g error, or collection erro r. CHLAMYDIA, NAAT, [id number] 20:58:03 Test Item Value Reference Range Interpretation Comments CHLAMYDIA, NAAT, NEGATIVE NEGATIVE Testing is performed with URINE (test code Ronel KAROLINE 6800/8800 = 17346) systems usingre al-time polymerase melvi n reaction (PCR) method. A negative result does not exclude low level infection , specimensamplin g error, or collection erro r. CULTURE, [id number] 08:59:23SPECIMEN NUMBER: [id number] CULTURE, URINE SPECIMEN NUMBER: [id number] SOURCE: URINE REPORT STATUS: FINAL FINAL REPORT: 02/03/2023 10-50,000 CFU/ML MIXED MICROBIAL POPULATION PRESENT, NO PREDOMINATING ORGANISMS;PROBABLE CONTAMINANTS.POCT MOLECULAR [id number] 22:29:53 Test Item Value Reference Range Interpretation Comments POCT Molecular FluA (test code = Positive Negative A 12482-9) Lab Interpretation (test code = Abnormal 00112-9) [facility] [id number] 22:25:50 Test Item Value Reference Range Interpretation Comments POCT Molecular Strep (test code = Positive Negative A 06929-5) Lab Interpretation (test code = Abnormal 22304-1) [facility], THIRD [id number] 04:18:40 Test Item Value Reference Range Interpretation Comments TSH, THIRD 2.920 UIU/ML 0.400-4.100 UNLESS OTHERWI SE GENERATION (test INDICATED, ALL TESTING code = 2821) PERFORMED [facility] PATHOLOGY [facility], [address] [address] LABOR ATORY DIRECTOR: FIOR STOCK M.D. CLIA NUMBER [id number] CAP ACCREDITATION N O. [id number] TSH, THIRD [id number] 02:32:58 Test Item Value Reference Range Interpretation Comments TSH, THIRD GENERATION (test code 0.474 UIU/ML 0.400-4.100 = 2821) TSH, THIRD [id number] 00:00:00 Test Item Value Reference Range Interpretation Comments TSH, THIRD GENERATION (test code 0.474 UIU/ML = 2821) TSH, THIRD [id number] 00:00:00 Test Item Value Reference Range Interpretation Comments TSH, THIRD GENERATION (test code 0.474 UIU/ML = 2821) TSH, THIRD [id number] 00:00:00 Test Item Value Reference Range Interpretation Comments TSH, THIRD GENERATION (test code 0.474 UIU/ML = 2821) CBC W/AUTO DIFF WITH [id number] 03:07:57 Test Item Value Reference Range Interpretation Comments WBC (test code = 6.7 K/UL 3.5-11.0 1001) RBC (test code = 4.81 M/UL 3.80-5.40 1002) HEMOGLOBIN (test 12.7 G/DL 11.5-15.5 code = 1003) HEMATOCRIT (test 38.7 % 34.0-45.0 code = 1004) MCV (test code = 80.5 fL 80.0-99.0 1005) MCH (test code = 26.4 PG 25.0-33.0 1006) MCHC (test code = 32.8 G/DL 31.0-36.0 1007) RDW (test code = 14.5 % 11.5-15.0 1038) NEUTROPHILS (test 56.3 % code = 1008) LYMPHOCYTES (test 33.8 % code = 1010) MONOCYTES (test code 7.8 % = 1011) EOSINOPHILS (test 1.9 % code = 1012) BASOPHILS (test code 0.1 % = 1013) IMMATURE 0.1 % GRANULOCYTES (test code = 1036) NUCLEATED RBCS (test 0.0 /100 See_Comment [Autom ated message] code = 1065) WBC'S The system Recorrido generated this result transmitted ref erence range: 0.0. The reference range was not used to int erpret this result as normal/abnormal . PLATELET COUNT (test 295 K/UL 130-400 code = 1015) ABSOLUTE NEUTROPHILS 3.75 K/UL 1.50-7.50 (test code = 1066) ABSOLUTE LYMPHOCYTES 2.26 K/UL 1.00-4.00 (test code = 1067) ABSOLUTE MONOCYTES 0.52 K/UL 0.20-1.00 (test code = 1068) ABSOLUTE EOSINOPHILS 0.13 K/UL 0.00-0.50 (test code = 1040) ABSOLUTE BASOPHILS 0.01 K/UL 0.00-0.20 (test code = 1069) ABS IMMATURE 0.01 K/UL 0.00-0.10 GRANULOCYTES (test code = 1020) ABS NUCLEATED RBCS 0.00 K/UL 0.00-0.11 UNLESS OTHERWISE (test code = 78644) INDICATE D, ALL TESTING PERFORM ED ATCLINICAL PATH OLOGY LABORATORIES, [place]. [address] [place] [address] [facility] DIRECTOR: FIOR STOCK M.D. CLIA NUMBER [id number] CAP ACCREDITATION N O. [id number] CBC W/AUTO [id number] 00:00:00 Test Item Value Reference Range Interpretation Comments WBC (test code = 1001) 6.7 K/UL RBC (test code = 1002) 4.81 M/UL HEMOGLOBIN (test code = 1003) 12.7 G/DL HEMATOCRIT (test code = 1004) 38.7 % MCV (test code = 1005) 80.5 fL MCH (test code = 1006) 26.4 PG MCHC (test code = 1007) 32.8 G/DL RDW (test code = 1038) 14.5 % NEUTROPHILS (test code = 1008) 56.3 % LYMPHOCYTES (test code = 1010) 33.8 % MONOCYTES (test code = 1011) 7.8 % EOSINOPHILS (test code = 1012) 1.9 % BASOPHILS (test code = 1013) 0.1 % IMMATURE GRANULOCYTES (test 0.1 % code = 1036) NUCLEATED RBCS (test code = 0.0 /100WBC'S 1065) PLATELET COUNT (test code = 295 K/UL 1015) ABSOLUTE NEUTROPHILS (test code 3.75 K/UL = 1066) ABSOLUTE LYMPHOCYTES (test code 2.26 K/UL = 1067) ABSOLUTE MONOCYTES (test code = 0.52 K/UL 1068) ABSOLUTE EOSINOPHILS (test code 0.13 K/UL = 1040) ABSOLUTE BASOPHILS (test code = 0.01 K/UL 1069) ABS IMMATURE GRANULOCYTES (test 0.01 K/UL code = 1020) ABS NUCLEATED RBCS (test code = 0.00 K/UL 81519) CBC W/AUTO [id number] 00:00:00 Test Item Value Reference Range Interpretation Comments WBC (test code = 1001) 6.7 K/UL RBC (test code = 1002) 4.81 M/UL HEMOGLOBIN (test code = 1003) 12.7 G/DL HEMATOCRIT (test code = 1004) 38.7 % MCV (test code = 1005) 80.5 fL MCH (test code = 1006) 26.4 PG MCHC (test code = 1007) 32.8 G/DL RDW (test code = 1038) 14.5 % NEUTROPHILS (test code = 1008) 56.3 % LYMPHOCYTES (test code = 1010) 33.8 % MONOCYTES (test code = 1011) 7.8 % EOSINOPHILS (test code = 1012) 1.9 % BASOPHILS (test code = 1013) 0.1 % IMMATURE GRANULOCYTES (test 0.1 % code = 1036) NUCLEATED RBCS (test code = 0.0 /100WBC'S 1065) PLATELET COUNT (test code = 295 K/UL 1015) ABSOLUTE NEUTROPHILS (test code 3.75 K/UL = 1066) ABSOLUTE LYMPHOCYTES (test code 2.26 K/UL = 1067) ABSOLUTE MONOCYTES (test code = 0.52 K/UL 1068) ABSOLUTE EOSINOPHILS (test code 0.13 K/UL = 1040) ABSOLUTE BASOPHILS (test code = 0.01 K/UL 1069) ABS IMMATURE GRANULOCYTES (test 0.01 K/UL code = 1020) ABS NUCLEATED RBCS (test code = 0.00 K/UL 40918) CBC W/AUTO [id number] 00:00:00 Test Item Value Reference Range Interpretation Comments WBC (test code = 1001) 6.7 K/UL RBC (test code = 1002) 4.81 M/UL HEMOGLOBIN (test code = 1003) 12.7 G/DL HEMATOCRIT (test code = 1004) 38.7 % MCV (test code = 1005) 80.5 fL MCH (test code = 1006) 26.4 PG MCHC (test code = 1007) 32.8 G/DL RDW (test code = 1038) 14.5 % NEUTROPHILS (test code = 1008) 56.3 % LYMPHOCYTES (test code = 1010) 33.8 % MONOCYTES (test code = 1011) 7.8 % EOSINOPHILS (test code = 1012) 1.9 % BASOPHILS (test code = 1013) 0.1 % IMMATURE GRANULOCYTES (test 0.1 % code = 1036) NUCLEATED RBCS (test code = 0.0 /100WBC'S 1065) PLATELET COUNT (test code = 295 K/UL 1015) ABSOLUTE NEUTROPHILS (test code 3.75 K/UL = 1066) ABSOLUTE LYMPHOCYTES (test code 2.26 K/UL = 1067) ABSOLUTE MONOCYTES (test code = 0.52 K/UL 1068) ABSOLUTE EOSINOPHILS (test code 0.13 K/UL = 1040) ABSOLUTE BASOPHILS (test code = 0.01 K/UL 1069) ABS IMMATURE GRANULOCYTES (test 0.01 K/UL code = 1020) ABS NUCLEATED RBCS (test code = 0.00 K/UL 16538) VAGINAL PATHOGENS DNA [id number] 14:38:56 Test Item Value Reference Range Interpretation Comments YIMI SPECIES (test code = 36206) NEGATIVE NEGATIVE G. VAGINALIS (test code = 05568) POSITIVE NEGATIVE A T. VAGINALIS (test code = 46319) NEGATIVE NEGATIVE HIV 1/2 4TH GEN, RFLX [id number] 03:14:46 Test Item Value Reference Range Interpretation Comments HIV 1/2 4TH GEN, RFLX CONF (test NON-REACTIVE NON-REACTIVE code = 3514) VAGINAL PATHOGENS DNA [id number] 00:00:00 Test Item Value Reference Range Interpretation Comments YIMI SPECIES (test code = 04630) NEGATIVE G. VAGINALIS (test code = 41007) POSITIVE T. VAGINALIS (test code = 99427) NEGATIVE VAGINAL PATHOGENS DNA [id number] 00:00:00 Test Item Value Reference Range Interpretation Comments YIMI SPECIES (test code = 08595) NEGATIVE G. VAGINALIS (test code = 53095) POSITIVE T. VAGINALIS (test code = 78390) NEGATIVE HIV 1/2 4TH GEN, RFLX [id number] 00:00:00 Test Item Value Reference Range Interpretation Comments HIV 1/2 4TH GEN, RFLX CONF (test NON-REACTIVE code = 3514) HIV 1/2 4TH GEN, RFLX [id number] 00:00:00 Test Item Value Reference Range Interpretation Comments HIV 1/2 4TH GEN, RFLX CONF (test NON-REACTIVE code = 3514) VAGINAL PATHOGENS DNA [id number] 00:00:00 Test Item Value Reference Range Interpretation Comments YIMI SPECIES (test code = 28490) NEGATIVE G. VAGINALIS (test code = 95704) POSITIVE T. VAGINALIS (test code = 19931) NEGATIVE VAGINAL PATHOGENS DNA [id number] 00:00:00 Test Item Value Reference Range Interpretation Comments YIMI SPECIES (test code = 24917) NEGATIVE G. VAGINALIS (test code = 83720) POSITIVE T. VAGINALIS (test code = 82480) NEGATIVE HIV 1/2 4TH GEN, RFLX [id number] 00:00:00 Test Item Value Reference Range Interpretation Comments HIV 1/2 4TH GEN, RFLX CONF (test NON-REACTIVE code = 3514) HIV 1/2 4TH GEN, RFLX [id number] 00:00:00 Test Item Value Reference Range Interpretation Comments HIV 1/2 4TH GEN, RFLX CONF (test NON-REACTIVE code = 3514) [id number] 23:42:09 Test Item Value Reference Range Interpretation Comments RPR RESULT (test NON-REACTIVE NON-REACTIVE code = 3501) RPR TITER (test NOT INDIC. NOT INDIC. UNLESS OTHE RWISE code = 3500) TITER INDICATED, ALL TESTING PERFORMED [facility] PATHOLOGY [facility]. [address] [place] [address] 4 LABORATORY DIRE CTOR: FIOR PITTMAN M.D. CLIA NUMBER [id number] [facility] [place] [id number] CT/NG, NAAT, [id number] 16:24:59 Test Item Value Reference Range Interpretation Comments GONORRHEA, NAAT NEGATIVE NEGATIVE IMPORTA NT NOTICE: SEE (test code = [place] [address]) [email or web address] Note: Assay methodology is nucleic acid amplification b y host coordinator m ediated amplification ( TMA) utilizing the A ptima Combo 2 Assay. CHLAMYDIA, NAAT NEGATIVE NEGATIVE IMPORTA NT NOTICE: SEE (test code = [place] [address]) [email or web address] Note: Assay methodology is nucleic acid amplification b y host coordinator m ediated amplification ( TMA) utilizing the A ptima Combo 2 Assay. CT/NG, TMA, [id number] 00:00:00 Test Item Value Reference Range Interpretation Comments GONORRHEA, NAAT (test code = 77980) NEGATIVE CHLAMYDIA, NAAT (test code = 17989) NEGATIVE CT/NG, TMA, [id number] 00:00:00 Test Item Value Reference Range Interpretation Comments GONORRHEA, NAAT (test code = 14224) NEGATIVE CHLAMYDIA, NAAT (test code = 17091) NEGATIVE [id number] 00:00:00 Test Item Value Reference Range Interpretation Comments RPR RESULT (test code = NON-REACTIVE 3501) RPR TITER (test code = 3500) NOT INDIC. TITER [id number] 00:00:00 Test Item Value Reference Range Interpretation Comments RPR RESULT (test code = NON-REACTIVE 3501) RPR TITER (test code = 3500) NOT INDIC. TITER [id number] 00:00:00 Test Item Value Reference Range Interpretation Comments RPR RESULT (test code = NON-REACTIVE 3501) RPR TITER (test code = 3500) NOT INDIC. TITER CT/NG, TMA, [id number] 00:00:00 Test Item Value Reference Range Interpretation Comments GONORRHEA, NAAT (test code = 19711) NEGATIVE CHLAMYDIA, NAAT (test code = 18408) NEGATIVE CT/NG, TMA, [id number] 00:00:00 Test Item Value Reference Range Interpretation Comments GONORRHEA, NAAT (test code = 87606) NEGATIVE CHLAMYDIA, NAAT (test code = 25570) NEGATIVE [id number] 00:00:00 Test Item Value Reference Range Interpretation Comments RPR RESULT (test code = NON-REACTIVE 3501) RPR TITER (test code = 3500) NOT INDIC. TITER [id number] 00:00:00 Test Item Value Reference Range Interpretation Comments RPR RESULT (test code = NON-REACTIVE 3501) RPR TITER (test code = 3500) NOT INDIC. TITER [id number] 00:00:00 Test Item Value Reference Range Interpretation Comments RPR RESULT (test code = NON-REACTIVE 3501) RPR TITER (test code = 3500) NOT INDIC. TITER CULTURE, [id number] 11:23:55SPECIMEN NUMBER: [id number] CULTURE, URINE SPECIMEN NUMBER: [id number] SPECIMEN COMMENT: URINE SOURCE:URINE REPORT STATUS: FINAL ISOLATE NUMBER 1: ORGANISM: 07/08/2022 10-50,000 CFU/ML GRAM NEGATIVE BACI I IDENTIFICATION: 07/09/2022 ESCHERICHIA COLI E. COLI AMOXICILLIN/CA SENSITIVE <=8/4AMPICILLIN RESISTANT >16CEFAZOLIN SENSITIVE <=2CEFTRIAXONE SENSITIVE <=1CIPROFLOXACIN S ENSITIVE <=1LEVOFLOXACIN SENSITIVE <=2NITROFURANTOIN SENSITIVE <=32PIP/TAZOBAC SENSITIVE <=16TETRACYCLINE RESISTANT >8TOBRAMYCIN SENSITIVE <=4TRIMETH/SULFA SENSITIVE <=2/38 NOTE: NUMBERS DISPLAYED REPRESENT MINIMUM INHIBITORY CONCENTRATION (ZAI) WHICH IS EXPRESSED IN MCG/ML. CULTURE, [id number] 00:00:00 Test Item Value Reference Range Interpretation Comments CULTURE, URINE (test SPECIMEN NUMBER: code = 52419) [id number] CULTURE, [id number] 00:00:00 Test Item Value Reference Range Interpretation Comments CULTURE, URINE (test SPECIMEN NUMBER: code = 27281) [id number] CULTURE, [id number] 00:00:00 Test Item Value Reference Range Interpretation Comments CULTURE, URINE (test SPECIMEN NUMBER: code = 84931) [id number] CULTURE, [id number] 00:00:00 Test Item Value Reference Range Interpretation Comments CULTURE, URINE (test SPECIMEN NUMBER: code = 02432) [id number] TSH, THIRD [id number] 02:03:48 Test Item Value Reference Range Interpretation Comments TSH, THIRD 0.026 UIU/ML 0.400-4.100 L UNLESS OTHERWI SE GENERATION (test INDICATED, ALL TESTING code = 2821) PERFORMED [facility] PATHOLOGY [facility], [id number] [place] [address] DIRECTOR: FIOR STOCK M.D. CLIA NUMBER [id number] CAP ACCREDITATION N O. [id number] 00:00:00 Test Item Value Reference Range Interpretation Comments TSH, THIRD GENERATION (test code 0.026 UIU/ML = 2821) [id number] 00:00:00 Test Item Value Reference Range Interpretation Comments TSH, THIRD GENERATION (test code 0.026 UIU/ML = 2821) [id number] 00:00:00 Test Item Value Reference Range Interpretation Comments TSH, THIRD GENERATION (test code 0.026 UIU/ML = 2821) [id number] 00:00:00 Test Item Value Reference Range Interpretation Comments TSH, THIRD GENERATION (test code 0.026 UIU/ML = 2821) [id number] 00:00:00 Test Item Value Reference Range Interpretation Comments TSH, THIRD GENERATION (test code 0.026 UIU/ML = 2821) [id number] 00:00:00 Test Item Value Reference Range Interpretation Comments TSH, THIRD GENERATION (test code 0.026 UIU/ML = 2821) CULTURE, [id number] 12:07:41SPECIMEN NUMBER: [id number] CULTURE, URINE SPECIMEN NUMBER: [id number] SOURCE: URINE REPORT STATUS: FINAL FINAL REPORT: 06/11/2022 UNABLE TO PERFORM TESTING DUE TO RECEIPT OF IMPROPER SPECIMEN. CHARGES DELETED.CULTURE, [id number] 00:00:00 Test Item Value Reference Range Interpretation Comments CULTURE, URINE (test SPECIMEN NUMBER: code = 00334) [id number] CULTURE, [id number] 00:00:00 Test Item Value Reference Range Interpretation Comments CULTURE, URINE (test SPECIMEN NUMBER: code = 67083) [id number] CULTURE, [id number] 00:00:00 Test Item Value Reference Range Interpretation Comments CULTURE, URINE (test SPECIMEN NUMBER: code = 72762) [id number] CULTURE, [id number] 00:00:00 Test Item Value Reference Range Interpretation Comments CULTURE, URINE (test SPECIMEN NUMBER: code = 17671) [id number] VAGINAL PATHOGENS DNA [id number] 13:20:58 Test Item Value Reference Range Interpretation Comments YIMI SPECIES (test NEGATIVE NEGATIVE code = ) G. VAGINALIS (test POSITIVE NEGATIVE A code = 54945) T. VAGINALIS (test NEGATIVE NEGATIVE UNLESS O THERWISE code = 22427) INDICATED, ALL TESTING PERFORMED [facility] PATHOLOGY [facility] [address] [place] [address] 4 LABORATORY DIRE CTOR: FIOR PITTMAN M.D. CLIA NUMBER [id number] [facility] [place]. [id number] VAGINAL PATHOGENS DNA [id number] 00:00:00 Test Item Value Reference Range Interpretation Comments YIMI SPECIES (test code = 73319) NEGATIVE G. VAGINALIS (test code = 44535) POSITIVE T. VAGINALIS (test code = 93024) NEGATIVE VAGINAL PATHOGENS DNA [id number] 00:00:00 Test Item Value Reference Range Interpretation Comments YIMI SPECIES (test code = 56609) NEGATIVE G. VAGINALIS (test code = 13140) POSITIVE T. VAGINALIS (test code = 13527) NEGATIVE VAGINAL PATHOGENS DNA [id number] 00:00:00 Test Item Value Reference Range Interpretation Comments YIMI SPECIES (test code = ) NEGATIVE G. VAGINALIS (test code = 30647) POSITIVE T. VAGINALIS (test code = 57318) NEGATIVE VAGINAL PATHOGENS DNA [id number] 00:00:00 Test Item Value Reference Range Interpretation Comments YIMI SPECIES (test code = ) NEGATIVE G. VAGINALIS (test code = 90606) POSITIVE T. VAGINALIS (test code = 92051) NEGATIVE TSH, THIRD [id number] 04:11:12 Test Item Value Reference Range Interpretation Comments TSH, THIRD <0.010 UIU/ML 0.400-4.100 L UNLESS OTHERW ISE GENERATION (test INDICATED, ALL code = 2821) TESTING PERFORM ED [facility]CL[facility] PATH [facility], [id number] [place] [address] DIRECTOR: FIOR STOCK M.D. CLIA NUMBER [id number] CAP ACCREDITATION N O. [id number] LIPID [id number] 03:05:33 Test Item Value Reference Range Interpretation Comments CHOLESTEROL (test 149 MG/DL <200 code = 2210) TRIGLYCERIDES (test 133 MG/DL <150 code = 2232) HDL CHOLESTEROL (test 44 MG/DL >39 code = 2220) CALC LDL CHOL (test 82 MG/DL <100 NOTE: C ALCULATED LDL code = 2237) IS BASED ON KATHY-JUÁREZ METHOD WHICHINCLUDES ADJUSTABLE TRIGLYCERIDE:VL DL CHOLESTEROL RAT IO.THIS FACTOR VARIES B Y MEASURED TRIGLY CERIDE AND NON-HDLCHOL ESTEROL CONCENTRATIONS WITH INCREASED CALCU LATED LDL SEENIN HIGH ER TRIGLYCERIDE OR LOWER NON-HDL SPECIME NS. FOR MOREINFORMATION , SEE CLIENT ANNOUNCE MENT AT [email or web address] RISK RATIO LDL/HDL 1.86 RATIO <3.22 (test code = 2238) COMPREHENSIVE METABOLIC [id number] 03:05:33 Test Item Value Reference Range Interpretation Comments GLUCOSE (test code = 90 MG/DL 70-99 2216) BUN (test code = 14 MG/DL -2207) CREATININE (test 0.55 MG/DL 0.60-1.30 L code = 2214) eGFR (2020 CKD-EPI) 131 >60 (test code = 30397) ML/MIN/1.73 CALC BUN/CREAT (test 25 RATIO 6-28 code = 2235) SODIUM (test code = 141 MEQ/L 373-549 0572) POTASSIUM (test code 4.0 MEQ/L 3.5-5.4 = 2228) CHLORIDE (test code 107 MEQ/L 95-107 = 2215) CARBON DIOXIDE (test 22 MEQ/L 19-31 code = 2206) CALCIUM (test code = 9.8 MG/DL 8.5-10.5 2208) PROTEIN, TOTAL (test 7.6 G/DL 6.1-8.3 code = 2229) ALBUMIN (test code = 4.4 G/DL 3.5-5.2 2200) CALC GLOBULIN (test 3.2 G/DL 1.9-3.7 code = 2240) CALC A/G RATIO (test 1.4 RATIO 1.0-2.6 code = 2234) BILIRUBIN, TOTAL 0.6 MG/DL See_Comment [Automated message] (test code = 220) The syste Perfect[employer] which generated this result transmit mauri reference range : <=1.2. The refe rence range was not u sed to interpret th is result as normal/abnormal . ALKALINE PHOSPHATASE 92 U/L 40-115 (test code = 220) AST (test code = 20 U/L 9-40 2217) ALT (test code = 27 U/L 5-40 2218) LIPID [id number] 00:00:00 Test Item Value Reference Range Interpretation Comments CHOLESTEROL (test code = 2210) 149 MG/DL TRIGLYCERIDES (test code = 2232) 133 MG/DL HDL CHOLESTEROL (test code = 2220) 44 MG/DL CALC LDL CHOL (test code = 2237) 82 MG/DL RISK RATIO LDL/HDL (test code = 1.86 RATIO 2238) LIPID [id number] 00:00:00 Test Item Value Reference Range Interpretation Comments CHOLESTEROL (test code = 2210) 149 MG/DL TRIGLYCERIDES (test code = 2232) 133 MG/DL HDL CHOLESTEROL (test code = 2220) 44 MG/DL CALC LDL CHOL (test code = 2237) 82 MG/DL RISK RATIO LDL/HDL (test code = 1.86 RATIO 2238) COMPREHENSIVE METABOLIC [id number] 00:00:00 Test Item Value Reference Range Interpretation Comments GLUCOSE (test code = 2217) 90 MG/DL BUN (test code = 2208) 14 MG/DL CREATININE (test code = 2214) 0.55 MG/DL eGFR (2020 CKD-EPI) (test 131 ML/MIN/1.73 code = 76674) CALC BUN/CREAT (test code = 25 RATIO 2235) SODIUM (test code = 2231) 141 MEQ/L POTASSIUM (test code = 2228) 4.0 MEQ/L CHLORIDE (test code = 2215) 107 MEQ/L CARBON DIOXIDE (test code = 22 MEQ/L 220) CALCIUM (test code = 2209) 9.8 MG/DL PROTEIN, TOTAL (test code = 7.6 G/DL 2228) ALBUMIN (test code = 220) 4.4 G/DL CALC GLOBULIN (test code = 3.2 G/DL 224) CALC A/G RATIO (test code = 1.4 RATIO 2234) BILIRUBIN, TOTAL (test code = 0.6 MG/DL 2206) ALKALINE PHOSPHATASE (test 92 U/L code = 2204) AST (test code = 2218) 20 U/L ALT (test code = 2219) 27 U/L COMPREHENSIVE METABOLIC [id number] 00:00:00 Test Item Value Reference Range Interpretation Comments GLUCOSE (test code = 2217) 90 MG/DL BUN (test code = 2208) 14 MG/DL CREATININE (test code = 2214) 0.55 MG/DL eGFR (2020 CKD-EPI) (test 131 ML/MIN/1.73 code = 58340) CALC BUN/CREAT (test code = 25 RATIO 2235) SODIUM (test code = 2231) 141 MEQ/L POTASSIUM (test code = 2228) 4.0 MEQ/L CHLORIDE (test code = 2215) 107 MEQ/L CARBON DIOXIDE (test code = 22 MEQ/L 220) CALCIUM (test code = 2209) 9.8 MG/DL PROTEIN, TOTAL (test code = 7.6 G/DL 2228) ALBUMIN (test code = 2201) 4.4 G/DL CALC GLOBULIN (test code = 3.2 G/DL 2240) CALC A/G RATIO (test code = 1.4 RATIO 2234) BILIRUBIN, TOTAL (test code = 0.6 MG/DL 2206) ALKALINE PHOSPHATASE (test 92 U/L code = 2204) AST (test code = 2218) 20 U/L ALT (test code = 2219) 27 U/L [id number] 00:00:00 Test Item Value Reference Range Interpretation Comments TSH, THIRD GENERATION (test <0.010 UIU/ML code = 2821) [id number] 00:00:00 Test Item Value Reference Range Interpretation Comments TSH, THIRD GENERATION (test <0.010 UIU/ML code = 2821) [id number] 00:00:00 Test Item Value Reference Range Interpretation Comments TSH, THIRD GENERATION (test <0.010 UIU/ML code = 2821) LIPID [id number] 00:00:00 Test Item Value Reference Range Interpretation Comments CHOLESTEROL (test code = 2210) 149 MG/DL TRIGLYCERIDES (test code = 2232) 133 MG/DL HDL CHOLESTEROL (test code = 2220) 44 MG/DL CALC LDL CHOL (test code = 2237) 82 MG/DL RISK RATIO LDL/HDL (test code = 1.86 RATIO 2238) LIPID [id number] 00:00:00 Test Item Value Reference Range Interpretation Comments CHOLESTEROL (test code = 2210) 149 MG/DL TRIGLYCERIDES (test code = 2232) 133 MG/DL HDL CHOLESTEROL (test code = 2220) 44 MG/DL CALC LDL CHOL (test code = 2237) 82 MG/DL RISK RATIO LDL/HDL (test code = 1.86 RATIO 2238) COMPREHENSIVE METABOLIC [id number] 00:00:00 Test Item Value Reference Range Interpretation Comments GLUCOSE (test code = 2217) 90 MG/DL BUN (test code = 2208) 14 MG/DL CREATININE (test code = 2214) 0.55 MG/DL eGFR (2020 CKD-EPI) (test 131 ML/MIN/1.73 code = 31409) CALC BUN/CREAT (test code = 25 RATIO 2235) SODIUM (test code = 2231) 141 MEQ/L POTASSIUM (test code = 2228) 4.0 MEQ/L CHLORIDE (test code = 2215) 107 MEQ/L CARBON DIOXIDE (test code = 22 MEQ/L 2205) CALCIUM (test code = 2209) 9.8 MG/DL PROTEIN, TOTAL (test code = 7.6 G/DL 2228) ALBUMIN (test code = 2201) 4.4 G/DL CALC GLOBULIN (test code = 3.2 G/DL 2240) CALC A/G RATIO (test code = 1.4 RATIO 2234) BILIRUBIN, TOTAL (test code = 0.6 MG/DL 2206) ALKALINE PHOSPHATASE (test 92 U/L code = 2204) AST (test code = 2218) 20 U/L ALT (test code = 2219) 27 U/L COMPREHENSIVE METABOLIC [id number] 00:00:00 Test Item Value Reference Range Interpretation Comments GLUCOSE (test code = 2217) 90 MG/DL BUN (test code = 2208) 14 MG/DL CREATININE (test code = 2214) 0.55 MG/DL eGFR (2020 CKD-EPI) (test 131 ML/MIN/1.73 code = 71906) CALC BUN/CREAT (test code = 25 RATIO 2235) SODIUM (test code = 2231) 141 MEQ/L POTASSIUM (test code = 2228) 4.0 MEQ/L CHLORIDE (test code = 2215) 107 MEQ/L CARBON DIOXIDE (test code = 22 MEQ/L 2205) CALCIUM (test code = 2209) 9.8 MG/DL PROTEIN, TOTAL (test code = 7.6 G/DL 2228) ALBUMIN (test code = 2201) 4.4 G/DL CALC GLOBULIN (test code = 3.2 G/DL 2240) CALC A/G RATIO (test code = 1.4 RATIO 2234) BILIRUBIN, TOTAL (test code = 0.6 MG/DL 2206) ALKALINE PHOSPHATASE (test 92 U/L code = 2204) AST (test code = 2218) 20 U/L ALT (test code = 2219) 27 U/L [id number] 00:00:00 Test Item Value Reference Range Interpretation Comments TSH, THIRD GENERATION (test <0.010 UIU/ML code = 2821) [id number] 00:00:00 Test Item Value Reference Range Interpretation Comments TSH, THIRD GENERATION (test <0.010 UIU/ML code = 2821) [id number] 00:00:00 Test Item Value Reference Range Interpretation Comments TSH, THIRD GENERATION (test <0.010 UIU/ML code = 2821) VAGINAL PATHOGENS DNA [id number] 00:00:00 Test Item Value Reference Range Interpretation Comments YIMI SPECIES (test code = ) NEGATIVE G. VAGINALIS (test code = 16009) POSITIVE T. VAGINALIS (test code = 18612) NEGATIVE VAGINAL PATHOGENS DNA [id number] 00:00:00 Test Item Value Reference Range Interpretation Comments YIMI SPECIES (test code = 55618) NEGATIVE G. VAGINALIS (test code = 98067) POSITIVE T. VAGINALIS (test code = 96009) NEGATIVE VAGINAL PATHOGENS DNA [id number] 00:00:00 Test Item Value Reference Range Interpretation Comments YIMI SPECIES (test code = 73885) NEGATIVE G. VAGINALIS (test code = 48919) POSITIVE T. VAGINALIS (test code = 31945) NEGATIVE VAGINAL PATHOGENS DNA [id number] 00:00:00 Test Item Value Reference Range Interpretation Comments YIMI SPECIES (test code = ) NEGATIVE G. VAGINALIS (test code = 86448) POSITIVE T. VAGINALIS (test code = 06807) NEGATIVE GC AND CHLAMYDIA, AMPLIFIED, [id number] 00:00:00 Test Item Value Reference Range Interpretation Comments GONORRHEA, NAAT (test code = 41418) NEGATIVE CHLAMYDIA, NAAT (test code = 25960) NEGATIVE GC AND CHLAMYDIA, AMPLIFIED, [id number] 00:00:00 Test Item Value Reference Range Interpretation Comments GONORRHEA, NAAT (test code = 04465) NEGATIVE CHLAMYDIA, NAAT (test code = 33420) NEGATIVE GC AND CHLAMYDIA, AMPLIFIED, [id number] 00:00:00 Test Item Value Reference Range Interpretation Comments GONORRHEA, NAAT (test code = 66678) NEGATIVE CHLAMYDIA, NAAT (test code = 81070) NEGATIVE GC AND CHLAMYDIA, AMPLIFIED, [id number] 00:00:00 Test Item Value Reference Range Interpretation Comments GONORRHEA, NAAT (test code = 73691) NEGATIVE CHLAMYDIA, NAAT (test code = 93614) NEGATIVE HCG, [id number] 00:00:00 Test Item Value Reference Range Interpretation Comments HCG, QUANTITATIVE (test code = <5 MIU/ML 2506) HCG, [id number] 00:00:00 Test Item Value Reference Range Interpretation Comments HCG, QUANTITATIVE (test code = <5 MIU/ML 2506) HCG, [id number] 00:00:00 Test Item Value Reference Range Interpretation Comments HCG, QUANTITATIVE (test code = <5 MIU/ML 2506) HCG, [id number] 00:00:00 Test Item Value Reference Range Interpretation Comments HCG, QUANTITATIVE (test code = <5 MIU/ML 2506) HCG, [id number] 00:00:00 Test Item Value Reference Range Interpretation Comments HCG, QUANTITATIVE (test code = <5 MIU/ML 2506) HCG, [id number] 00:00:00 Test Item Value Reference Range Interpretation Comments HCG, QUANTITATIVE (test code = <5 MIU/ML 2506) URINE CULTURE, NO [id number] 00:00:00 Test Item Value Reference Range Interpretation Comments URINE CULTURE, NO SPECIMEN NUMBER: SENS (test code = [id number] 99802) URINE CULTURE, NO [id number] 00:00:00 Test Item Value Reference Range Interpretation Comments URINE CULTURE, NO SPECIMEN NUMBER: SENS (test code = [id number] 52921) URINE CULTURE, NO [id number] 00:00:00 Test Item Value Reference Range Interpretation Comments URINE CULTURE, NO SPECIMEN NUMBER: SENS (test code = [id number] 68696) URINE CULTURE, NO [id number] 00:00:00 Test Item Value Reference Range Interpretation Comments URINE CULTURE, NO SPECIMEN NUMBER: SENS (test code = [id number] 36893) [id number] 00:00:00 Test Item Value Reference Range Interpretation Comments RPR RESULT (test code = NON-REACTIVE 3501) RPR TITER (test code = 3500) NOT INDIC. TITER [id number] 00:00:00 Test Item Value Reference Range Interpretation Comments RPR RESULT (test code = NON-REACTIVE 3501) RPR TITER (test code = 3500) NOT INDIC. TITER [id number] 00:00:00 Test Item Value Reference Range Interpretation Comments RPR RESULT (test code = NON-REACTIVE 3501) RPR TITER (test code = 3500) NOT INDIC. TITER ACUTE HEPATITIS [id number] 00:00:00 Test Item Value Reference Range Interpretation Comments HEPATITIS A IgM (test code = NON-REACTIVE 71010) HEPATITIS B CORE IgM (test code NON-REACTIVE = 4644) HEPATITIS B SURF AG (test code = NON-REACTIVE 2739) HEPATITIS C ANTIBODY (test code NON-REACTIVE = 4675) INTERPRETATION HEPATITIS A: (NOTE) (test code = 2552) INTERPRETATION HEPATITIS B: (NOTE) (test code = 02291) INTERPRETATION HEPATITIS C: (NOTE) (test code = 63897) ACUTE HEPATITIS [id number] 00:00:00 Test Item Value Reference Range Interpretation Comments HEPATITIS A IgM (test code = NON-REACTIVE 03482) HEPATITIS B CORE IgM (test code NON-REACTIVE = 4644) HEPATITIS B SURF AG (test code = NON-REACTIVE 2739) HEPATITIS C ANTIBODY (test code NON-REACTIVE = 4675) INTERPRETATION HEPATITIS A: (NOTE) (test code = 2552) INTERPRETATION HEPATITIS B: (NOTE) (test code = 88660) INTERPRETATION HEPATITIS C: (NOTE) (test code = 76643) GC AND CHLAMYDIA, AMPLIFIED, [id number] 00:00:00 Test Item Value Reference Range Interpretation Comments GONORRHEA, NAAT (test code = 34701) NEGATIVE CHLAMYDIA, NAAT (test code = 05247) NEGATIVE GC AND CHLAMYDIA, AMPLIFIED, [id number] 00:00:00 Test Item Value Reference Range Interpretation Comments GONORRHEA, NAAT (test code = 49847) NEGATIVE CHLAMYDIA, NAAT (test code = 28418) NEGATIVE HIV AB/AG COMBO RFLX [id number] 00:00:00 Test Item Value Reference Range Interpretation Comments HIV 1/2 4TH GEN, RFLX CONF (test NON-REACTIVE code = 3514) HIV AB/AG COMBO RFLX [id number] 00:00:00 Test Item Value Reference Range Interpretation Comments HIV 1/2 4TH GEN, RFLX CONF (test NON-REACTIVE code = 3514) VAGINAL PATHOGENS DNA [id number] 00:00:00 Test Item Value Reference Range Interpretation Comments YIMI SPECIES (test code = ) POSITIVE G. VAGINALIS (test code = ) NEGATIVE T. VAGINALIS (test code = ) NEGATIVE VAGINAL PATHOGENS DNA [id number] 00:00:00 Test Item Value Reference Range Interpretation Comments YIMI SPECIES (test code = ) POSITIVE G. VAGINALIS (test code = 19986) NEGATIVE T. VAGINALIS (test code = 17234) NEGATIVE HCG, [id number] 00:00:00 Test Item Value Reference Range Interpretation Comments HCG, QUANTITATIVE (test code = <5 MIU/ML 2506) HCG, [id number] 00:00:00 Test Item Value Reference Range Interpretation Comments HCG, QUANTITATIVE (test code = <5 MIU/ML 2506) HCG, [id number] 00:00:00 Test Item Value Reference Range Interpretation Comments HCG, QUANTITATIVE (test code = <5 MIU/ML 2506) [id number] 00:00:00 Test Item Value Reference Range Interpretation Comments RPR RESULT (test code = NON-REACTIVE 3501) RPR TITER (test code = 3500) NOT INDIC. TITER [id number] 00:00:00 Test Item Value Reference Range Interpretation Comments RPR RESULT (test code = NON-REACTIVE 3501) RPR TITER (test code = 3500) NOT INDIC. TITER [id number] 00:00:00 Test Item Value Reference Range Interpretation Comments RPR RESULT (test code = NON-REACTIVE 3501) RPR TITER (test code = 3500) NOT INDIC. TITER ACUTE HEPATITIS [id number] 00:00:00 Test Item Value Reference Range Interpretation Comments HEPATITIS A IgM (test code = NON-REACTIVE 46011) HEPATITIS B CORE IgM (test code NON-REACTIVE = 4644) HEPATITIS B SURF AG (test code = NON-REACTIVE 2739) HEPATITIS C ANTIBODY (test code NON-REACTIVE = 4675) INTERPRETATION HEPATITIS A: (NOTE) (test code = 2552) INTERPRETATION HEPATITIS B: (NOTE) (test code = 53285) INTERPRETATION HEPATITIS C: (NOTE) (test code = [address]) ACUTE HEPATITIS [id number] 00:00:00 Test Item Value Reference Range Interpretation Comments HEPATITIS A IgM (test code = NON-REACTIVE 88383) HEPATITIS B CORE IgM (test code NON-REACTIVE = 4644) HEPATITIS B SURF AG (test code = NON-REACTIVE 2739) HEPATITIS C ANTIBODY (test code NON-REACTIVE = 4675) INTERPRETATION HEPATITIS A: (NOTE) (test code = 2552) INTERPRETATION HEPATITIS B: (NOTE) (test code = 40674) INTERPRETATION HEPATITIS C: (NOTE) (test code = 29592) GC AND CHLAMYDIA, AMPLIFIED, [id number] 00:00:00 Test Item Value Reference Range Interpretation Comments GONORRHEA, NAAT (test code = 36690) NEGATIVE CHLAMYDIA, NAAT (test code = 53168) NEGATIVE GC AND CHLAMYDIA, AMPLIFIED, [id number] 00:00:00 Test Item Value Reference Range Interpretation Comments GONORRHEA, NAAT (test code = 57595) NEGATIVE CHLAMYDIA, NAAT (test code = 76672) NEGATIVE HIV AB/AG COMBO RFLX [id number] 00:00:00 Test Item Value Reference Range Interpretation Comments HIV 1/2 4TH GEN, RFLX CONF (test NON-REACTIVE code = 3514) HIV AB/AG COMBO RFLX [id number] 00:00:00 Test Item Value Reference Range Interpretation Comments HIV 1/2 4TH GEN, RFLX CONF (test NON-REACTIVE code = 3514) VAGINAL PATHOGENS DNA [id number] 00:00:00 Test Item Value Reference Range Interpretation Comments YIMI SPECIES (test code = ) POSITIVE G. VAGINALIS (test code = 98898) NEGATIVE T. VAGINALIS (test code = 66488) NEGATIVE VAGINAL PATHOGENS DNA [id number] 00:00:00 Test Item Value Reference Range Interpretation Comments YIMI SPECIES (test code = 66234) POSITIVE G. VAGINALIS (test code = 58592) NEGATIVE T. VAGINALIS (test code = 36837) NEGATIVE HCG, [id number] 00:00:00 Test Item Value Reference Range Interpretation Comments HCG, QUANTITATIVE (test code = <5 MIU/ML 2506) HCG, [id number] 00:00:00 Test Item Value Reference Range Interpretation Comments HCG, QUANTITATIVE (test code = <5 MIU/ML 2506) HCG, [id number] 00:00:00 Test Item Value Reference Range Interpretation Comments HCG, QUANTITATIVE (test code = <5 MIU/ML 2506) URINE AND [id number] 04:11:00 Test Item Value Reference Range Interpretation Comments UA Color (test code = Light Yellow UA Color) *NA*(08/08/20 11:11 PM) [facility] [id number] 04:11:00 Test Item Value Reference Range Interpretation Comments UA Turbidity (test code = Clear (08/08/20 11:11 UA Turbidity) PM) [facility] [id number] 04:11:00 Test Item Value Reference Range Interpretation Comments UA Spec Grav (test code = UA Spec 1.011 1 Grav) [facility] AND [id number] 04:11:00 Test Item Value Reference Range Interpretation Comments UA pH (test code = UA pH) 6.0 1 5.0-8.0 [facility] AND [id number] 04:11:00 Test Item Value Reference Range Interpretation Comments UA Protein (test code Negative (08/08/20 11:11 = UA Protein) PM) [facility] AND [id number] 04:11:00 Test Item Value Reference Range Interpretation Comments UA Glucose (test code Negative *NA*(08/08/20 = UA Glucose) 11:11 PM) [facility] AND [id number] 04:11:00 Test Item Value Reference Range Interpretation Comments UA Ketones (test code Negative *NA*(08/08/20 = UA Ketones) 11:11 PM) [facility] AND [id number] 04:11:00 Test Item Value Reference Range Interpretation Comments UA Bili (test code = Negative *NA*(08/08/20 UA Bili) 11:11 PM) [facility] AND [id number] 04:11:00 Test Item Value Reference Range Interpretation Comments UA Blood (test code = Negative (08/08/20 11:11 UA Blood) PM) [facility] AND [id number] 04:11:00 Test Item Value Reference Range Interpretation Comments UA Urobilinogen (test code = UA <=1.0 mg/dL 0.1-1.0 Urobilinogen) [facility] AND [id number] 04:11:00 Test Item Value Reference Range Interpretation Comments UA Nitrite (test code Negative (08/08/20 11:11 = UA Nitrite) PM) [facility] AND [id number] 04:11:00 Test Item Value Reference Range Interpretation Comments UA Leuk Est (test Negative (08/08/20 11:11 code = UA Leuk Est) PM) [facility] AND [id number] 04:11:00 Test Item Value Reference Range Interpretation Comments UA Sq Epi (test code = UA Sq Occasional /LPF Epi) [facility] AND [id number] 04:11:00 Test Item Value Reference Range Interpretation Comments UA WBC (test code = no gt See_Comment [Automa mauri message] The UA WBC) system which ge nerated this result transmit mauri reference range : <=5. The reference range was not used to interpr et this result as kala l/abnormal. [facility] [id number] 04:11:00 Test Item Value Reference Range Interpretation Comments UA RBC (test code = 2 See_Comment [Automa mauri message] The UA RBC) system which ge nerated this result transmit mauri reference range : <=2. The reference range was not used to interpr et this result as kala l/abnormal. [facility] AND [id number] 04:11:00 Test Item Value Reference Range Interpretation Comments UA Bacteria (test code = UA Occasional /HPF Bacteria) [facility] AND [id number] 04:11:00 Test Item Value Reference Range Interpretation Comments UA Mucus (test code = UA Mucus) Few /LPF [facility] AND [id number] 04:11:00 Test Item Value Reference Range Interpretation Comments UA Color (test code = Light Yellow UA Color) *NA*(08/08/20 11:11 PM) [facility] AND [id number] 04:11:00 Test Item Value Reference Range Interpretation Comments UA Turbidity (test code = Clear (08/08/20 11:11 UA Turbidity) PM) [facility] AND [id number] 04:11:00 Test Item Value Reference Range Interpretation Comments UA Spec Grav (test code = UA Spec 1.011 1 Grav) [facility] AND [id number] 04:11:00 Test Item Value Reference Range Interpretation Comments UA pH (test code = UA pH) 6.0 1 5.0-8.0 [facility] AND [id number] 04:11:00 Test Item Value Reference Range Interpretation Comments UA Protein (test code Negative (08/08/20 11:11 = UA Protein) PM) [facility] AND [id number] 04:11:00 Test Item Value Reference Range Interpretation Comments UA Glucose (test code Negative *NA*(08/08/20 = UA Glucose) 11:11 PM) [facility] [id number] 04:11:00 Test Item Value Reference Range Interpretation Comments UA Ketones (test code Negative *NA*(08/08/20 = UA Ketones) 11:11 PM) [facility] [id number] 04:11:00 Test Item Value Reference Range Interpretation Comments UA Bili (test code = Negative *NA*(08/08/20 UA Bili) 11:11 PM) [facility] [id number] 04:11:00 Test Item Value Reference Range Interpretation Comments UA Blood (test code = Negative (08/08/20 11:11 UA Blood) PM) [facility] [id number] 04:11:00 Test Item Value Reference Range Interpretation Comments UA Urobilinogen (test code = UA <=1.0 mg/dL 0.1-1.0 Urobilinogen) [facility] [id number] 04:11:00 Test Item Value Reference Range Interpretation Comments UA Nitrite (test code Negative (08/08/20 11:11 = UA Nitrite) PM) [facility] [id number] 04:11:00 Test Item Value Reference Range Interpretation Comments UA Leuk Est (test Negative (08/08/20 11:11 code = UA Leuk Est) PM) [facility] [id number] 04:11:00 Test Item Value Reference Range Interpretation Comments UA Sq Epi (test code = UA Sq Occasional /LPF Epi) [facility] [id number] 04:11:00 Test Item Value Reference Range Interpretation Comments UA WBC (test code = no gt See_Comment [Automa mauri message] The UA WBC) system which ge nerated this result transmit mauri reference range : <=5. The reference range was not used to interpr et this result as kala l/abnormal. [facility] [id number] 04:11:00 Test Item Value Reference Range Interpretation Comments UA RBC (test code = 2 See_Comment [Automa mauri message] The UA RBC) system which ge nerated this result transmit mauri reference range : <=2. The reference range was not used to interpr et this result as kala l/abnormal. [facility] [id number] 04:11:00 Test Item Value Reference Range Interpretation Comments UA Bacteria (test code = UA Occasional /HPF Bacteria) [facility] [id number] 04:11:00 Test Item Value Reference Range Interpretation Comments UA Mucus (test code = UA Mucus) Few /LPF [facility] AND [id number] 04:11:00 Test Item Value Reference Range Interpretation Comments UA Color (test code = Light Yellow UA Color) *NA*(08/08/20 11:11 PM) [facility] [id number] 04:11:00 Test Item Value Reference Range Interpretation Comments UA Turbidity (test code = Clear (08/08/20 11:11 UA Turbidity) PM) [facility] [id number] 04:11:00 Test Item Value Reference Range Interpretation Comments UA Spec Grav (test code = UA Spec 1.011 1 Grav) [facility] AND [id number] 04:11:00 Test Item Value Reference Range Interpretation Comments UA pH (test code = UA pH) 6.0 1 5.0-8.0 [facility] AND [id number] 04:11:00 Test Item Value Reference Range Interpretation Comments UA Protein (test code Negative (08/08/20 11:11 = UA Protein) PM) [facility] AND [id number] 04:11:00 Test Item Value Reference Range Interpretation Comments UA Glucose (test code Negative *NA*(08/08/20 = UA Glucose) 11:11 PM) [facility] [id number] 04:11:00 Test Item Value Reference Range Interpretation Comments UA Ketones (test code Negative *NA*(08/08/20 = UA Ketones) 11:11 PM) [facility] [id number] 04:11:00 Test Item Value Reference Range Interpretation Comments UA Bili (test code = Negative *NA*(08/08/20 UA Bili) 11:11 PM) [facility] [id number] 04:11:00 Test Item Value Reference Range Interpretation Comments UA Blood (test code = Negative (08/08/20 11:11 UA Blood) PM) [facility] [id number] 04:11:00 Test Item Value Reference Range Interpretation Comments UA Urobilinogen (test code = UA <=1.0 mg/dL 0.1-1.0 Urobilinogen) [facility] [id number] 04:11:00 Test Item Value Reference Range Interpretation Comments UA Nitrite (test code Negative (08/08/20 11:11 = UA Nitrite) PM) [facility] [id number] 04:11:00 Test Item Value Reference Range Interpretation Comments UA Leuk Est (test Negative (08/08/20 11:11 code = UA Leuk Est) PM) [facility] [id number] 04:11:00 Test Item Value Reference Range Interpretation Comments UA Sq Epi (test code = UA Sq Occasional /LPF Epi) [facility] [id number] 04:11:00 Test Item Value Reference Range Interpretation Comments UA WBC (test code = no gt See_Comment [Automa mauri message] The UA WBC) system which ge nerated this result transmit mauri reference range : <=5. The reference range was not used to interpr et this result as kala l/abnormal. [facility] [id number] 04:11:00 Test Item Value Reference Range Interpretation Comments UA RBC (test code = 2 See_Comment [Automa mauri message] The UA RBC) system which ge nerated this result transmit mauri reference range : <=2. The reference range was not used to interpr et this result as kala l/abnormal. [facility] AND [id number] 04:11:00 Test Item Value Reference Range Interpretation Comments UA Bacteria (test code = UA Occasional /HPF Bacteria) [facility] [id number] 04:11:00 Test Item Value Reference Range Interpretation Comments UA Mucus (test code = UA Mucus) Few /LPF [facility] [id number] 04:11:00 Test Item Value Reference Range Interpretation Comments UA Color (test code = Light Yellow UA Color) *NA*(08/08/20 11:11 PM) [facility] [id number] 04:11:00 Test Item Value Reference Range Interpretation Comments UA Turbidity (test code = Clear (08/08/20 11:11 UA Turbidity) PM) [facility] [id number] 04:11:00 Test Item Value Reference Range Interpretation Comments UA Spec Grav (test code = UA Spec 1.011 1 Grav) [facility] AND [id number] 04:11:00 Test Item Value Reference Range Interpretation Comments UA pH (test code = UA pH) 6.0 1 5.0-8.0 [facility] AND [id number] 04:11:00 Test Item Value Reference Range Interpretation Comments UA Protein (test code Negative (08/08/20 11:11 = UA Protein) PM) [facility] AND [id number] 04:11:00 Test Item Value Reference Range Interpretation Comments UA Glucose (test code Negative *NA*(08/08/20 = UA Glucose) 11:11 PM) [facility] AND [id number] 04:11:00 Test Item Value Reference Range Interpretation Comments UA Ketones (test code Negative *NA*(08/08/20 = UA Ketones) 11:11 PM) [facility] AND [id number] 04:11:00 Test Item Value Reference Range Interpretation Comments UA Bili (test code = Negative *NA*(08/08/20 UA Bili) 11:11 PM) [facility] AND [id number] 04:11:00 Test Item Value Reference Range Interpretation Comments UA Blood (test code = Negative (08/08/20 11:11 UA Blood) PM) [facility] AND [id number] 04:11:00 Test Item Value Reference Range Interpretation Comments UA Urobilinogen (test code = UA <=1.0 mg/dL 0.1-1.0 Urobilinogen) [facility] AND [id number] 04:11:00 Test Item Value Reference Range Interpretation Comments UA Nitrite (test code Negative (08/08/20 11:11 = UA Nitrite) PM) [facility] AND [id number] 04:11:00 Test Item Value Reference Range Interpretation Comments UA Leuk Est (test Negative (08/08/20 11:11 code = UA Leuk Est) PM) [facility] AND [id number] 04:11:00 Test Item Value Reference Range Interpretation Comments UA Sq Epi (test code = UA Sq Occasional /LPF Epi) [facility] [id number] 04:11:00 Test Item Value Reference Range Interpretation Comments UA WBC (test code = no gt See_Comment [Automa mauri message] The UA WBC) system which ge nerated this result transmit mauri reference range : <=5. The reference range was not used to interpr et this result as kala l/abnormal. [facility] AND [id number] 04:11:00 Test Item Value Reference Range Interpretation Comments UA RBC (test code = 2 See_Comment [Automa mauri message] The UA RBC) system which ge nerated this result transmit mauri reference range : <=2. The reference range was not used to interpr et this result as kala l/abnormal. [facility] AND [id number] 04:11:00 Test Item Value Reference Range Interpretation Comments UA Bacteria (test code = UA Occasional /HPF Bacteria) [facility] AND [id number] 04:11:00 Test Item Value Reference Range Interpretation Comments UA Mucus (test code = UA Mucus) Few /LPF [facility] AND [id number] 04:11:00 Test Item Value Reference Range Interpretation Comments UA Color (test code = Light Yellow UA Color) *NA*(08/08/20 11:11 PM) [facility] AND [id number] 04:11:00 Test Item Value Reference Range Interpretation Comments UA Turbidity (test code = Clear (08/08/20 11:11 UA Turbidity) PM) [facility] AND [id number] 04:11:00 Test Item Value Reference Range Interpretation Comments UA Spec Grav (test code = UA Spec 1.011 1 Grav) [facility] AND [id number] 04:11:00 Test Item Value Reference Range Interpretation Comments UA pH (test code = UA pH) 6.0 1 5.0-8.0 [facility] AND [id number] 04:11:00 Test Item Value Reference Range Interpretation Comments UA Protein (test code Negative (08/08/20 11:11 = UA Protein) PM) [facility] AND [id number] 04:11:00 Test Item Value Reference Range Interpretation Comments UA Glucose (test code Negative *NA*(08/08/20 = UA Glucose) 11:11 PM) [facility] [id number] 04:11:00 Test Item Value Reference Range Interpretation Comments UA Ketones (test code Negative *NA*(08/08/20 = UA Ketones) 11:11 PM) [facility] [id number] 04:11:00 Test Item Value Reference Range Interpretation Comments UA Bili (test code = Negative *NA*(08/08/20 UA Bili) 11:11 PM) [facility] [id number] 04:11:00 Test Item Value Reference Range Interpretation Comments UA Blood (test code = Negative (08/08/20 11:11 UA Blood) PM) [facility] [id number] 04:11:00 Test Item Value Reference Range Interpretation Comments UA Urobilinogen (test code = UA <=1.0 mg/dL 0.1-1.0 Urobilinogen) [facility] [id number] 04:11:00 Test Item Value Reference Range Interpretation Comments UA Nitrite (test code Negative (08/08/20 11:11 = UA Nitrite) PM) [facility] [id number] 04:11:00 Test Item Value Reference Range Interpretation Comments UA Leuk Est (test Negative (08/08/20 11:11 code = UA Leuk Est) PM) [facility] [id number] 04:11:00 Test Item Value Reference Range Interpretation Comments UA Sq Epi (test code = UA Sq Occasional /LPF Epi) [facility] AND [id number] 04:11:00 Test Item Value Reference Range Interpretation Comments UA WBC (test code = no gt See_Comment [Automa mauri message] The UA WBC) system which ge nerated this result transmit mauri reference range : <=5. The reference range was not used to interpr et this result as kala l/abnormal. [facility] [id number] 04:11:00 Test Item Value Reference Range Interpretation Comments UA RBC (test code = 2 See_Comment [Automa mauri message] The UA RBC) system which ge nerated this result transmit mauri reference range : <=2. The reference range was not used to interpr et this result as kala l/abnormal. [facility] AND [id number] 04:11:00 Test Item Value Reference Range Interpretation Comments UA Bacteria (test code = UA Occasional /HPF Bacteria) [facility] [id number] 04:11:00 Test Item Value Reference Range Interpretation Comments UA Mucus (test code = UA Mucus) Few /LPF [facility] AND [id number] 04:11:00 Test Item Value Reference Range Interpretation Comments UA Color (test code = Light Yellow UA Color) *NA*(08/08/20 11:11 PM) [facility] AND [id number] 04:11:00 Test Item Value Reference Range Interpretation Comments UA Turbidity (test code = Clear (08/08/20 11:11 UA Turbidity) PM) [facility] AND [id number] 04:11:00 Test Item Value Reference Range Interpretation Comments UA Spec Grav (test code = UA Spec 1.011 1 Grav) [facility] AND [id number] 04:11:00 Test Item Value Reference Range Interpretation Comments UA pH (test code = UA pH) 6.0 1 5.0-8.0 [facility] AND [id number] 04:11:00 Test Item Value Reference Range Interpretation Comments UA Protein (test code Negative (08/08/20 11:11 = UA Protein) PM) [facility] AND [id number] 04:11:00 Test Item Value Reference Range Interpretation Comments UA Glucose (test code Negative *NA*(08/08/20 = UA Glucose) 11:11 PM) [facility] AND [id number] 04:11:00 Test Item Value Reference Range Interpretation Comments UA Ketones (test code Negative *NA*(08/08/20 = UA Ketones) 11:11 PM) [facility] AND [id number] 04:11:00 Test Item Value Reference Range Interpretation Comments UA Bili (test code = Negative *NA*(08/08/20 UA Bili) 11:11 PM) [facility] AND [id number] 04:11:00 Test Item Value Reference Range Interpretation Comments UA Blood (test code = Negative (08/08/20 11:11 UA Blood) PM) [facility] AND [id number] 04:11:00 Test Item Value Reference Range Interpretation Comments UA Urobilinogen (test code = UA <=1.0 mg/dL 0.1-1.0 Urobilinogen) [facility] [id number] 04:11:00 Test Item Value Reference Range Interpretation Comments UA Nitrite (test code Negative (08/08/20 11:11 = UA Nitrite) PM) [facility] [id number] 04:11:00 Test Item Value Reference Range Interpretation Comments UA Leuk Est (test Negative (08/08/20 11:11 code = UA Leuk Est) PM) [facility] [id number] 04:11:00 Test Item Value Reference Range Interpretation Comments UA Sq Epi (test code = UA Sq Occasional /LPF Epi) [facility] [id number] 04:11:00 Test Item Value Reference Range Interpretation Comments UA WBC (test code = no gt See_Comment [Automa mauri message] The UA WBC) system which ge nerated this result transmit mauri reference range : <=5. The reference range was not used to interpr et this result as kala l/abnormal. [facility] AND [id number] 04:11:00 Test Item Value Reference Range Interpretation Comments UA RBC (test code = 2 See_Comment [Automa mauri message] The UA RBC) system which ge nerated this result transmit mauri reference range : <=2. The reference range was not used to interpr et this result as kala l/abnormal. [facility] AND [id number] 04:11:00 Test Item Value Reference Range Interpretation Comments UA Bacteria (test code = UA Occasional /HPF Bacteria) [facility] AND [id number] 04:11:00 Test Item Value Reference Range Interpretation Comments UA Mucus (test code = UA Mucus) Few /LPF [facility] [id number] 04:11:00 Test Item Value Reference Range Interpretation Comments UA Color (test code = Light Yellow UA Color) *NA*(08/08/20 11:11 PM) [facility] [id number] 04:11:00 Test Item Value Reference Range Interpretation Comments UA Turbidity (test code = Clear (08/08/20 11:11 UA Turbidity) PM) [facility] AND [id number] 04:11:00 Test Item Value Reference Range Interpretation Comments UA Spec Grav (test code = UA Spec 1.011 1 Grav) [facility] AND [id number] 04:11:00 Test Item Value Reference Range Interpretation Comments UA pH (test code = UA pH) 6.0 1 5.0-8.0 [facility] AND [id number] 04:11:00 Test Item Value Reference Range Interpretation Comments UA Protein (test code Negative (08/08/20 11:11 = UA Protein) PM) [facility] AND [id number] 04:11:00 Test Item Value Reference Range Interpretation Comments UA Glucose (test code Negative *NA*(08/08/20 = UA Glucose) 11:11 PM) [facility] AND [id number] 04:11:00 Test Item Value Reference Range Interpretation Comments UA Ketones (test code Negative *NA*(08/08/20 = UA Ketones) 11:11 PM) [facility] AND [id number] 04:11:00 Test Item Value Reference Range Interpretation Comments UA Bili (test code = Negative *NA*(08/08/20 UA Bili) 11:11 PM) [facility] AND [id number] 04:11:00 Test Item Value Reference Range Interpretation Comments UA Blood (test code = Negative (08/08/20 11:11 UA Blood) PM) [facility] AND [id number] 04:11:00 Test Item Value Reference Range Interpretation Comments UA Urobilinogen (test code = UA <=1.0 mg/dL 0.1-1.0 Urobilinogen) [facility] AND [id number] 04:11:00 Test Item Value Reference Range Interpretation Comments UA Nitrite (test code Negative (08/08/20 11:11 = UA Nitrite) PM) [facility] AND [id number] 04:11:00 Test Item Value Reference Range Interpretation Comments UA Leuk Est (test Negative (08/08/20 11:11 code = UA Leuk Est) PM) [facility] AND [id number] 04:11:00 Test Item Value Reference Range Interpretation Comments UA Sq Epi (test code = UA Sq Occasional /LPF Epi) [facility] AND [id number] 04:11:00 Test Item Value Reference Range Interpretation Comments UA WBC (test code = no gt See_Comment [Automa mauri message] The UA WBC) system which ge nerated this result transmit mauri reference range : <=5. The reference range was not used to interpr et this result as kala l/abnormal. [facility] AND [id number] 04:11:00 Test Item Value Reference Range Interpretation Comments UA RBC (test code = 2 See_Comment [Automa mauri message] The UA RBC) system which ge nerated this result transmit mauri reference range : <=2. The reference range was not used to interpr et this result as kala l/abnormal. [facility] AND [id number] 04:11:00 Test Item Value Reference Range Interpretation Comments UA Bacteria (test code = UA Occasional /HPF Bacteria) [facility] AND [id number] 04:11:00 Test Item Value Reference Range Interpretation Comments UA Mucus (test code = UA Mucus) Few /LPF [facility] AND [id number] 04:11:00 Test Item Value Reference Range Interpretation Comments UA Color (test code = Light Yellow UA Color) *NA*(08/08/20 11:11 PM) [facility] AND [id number] 04:11:00 Test Item Value Reference Range Interpretation Comments UA Turbidity (test code = Clear (08/08/20 11:11 UA Turbidity) PM) [facility] AND [id number] 04:11:00 Test Item Value Reference Range Interpretation Comments UA Spec Grav (test code = UA Spec 1.011 1 Grav) [facility] AND [id number] 04:11:00 Test Item Value Reference Range Interpretation Comments UA pH (test code = UA pH) 6.0 1 5.0-8.0 [facility] AND [id number] 04:11:00 Test Item Value Reference Range Interpretation Comments UA Protein (test code Negative (08/08/20 11:11 = UA Protein) PM) [facility] AND [id number] 04:11:00 Test Item Value Reference Range Interpretation Comments UA Glucose (test code Negative *NA*(08/08/20 = UA Glucose) 11:11 PM) [facility] AND [id number] 04:11:00 Test Item Value Reference Range Interpretation Comments UA Ketones (test code Negative *NA*(08/08/20 = UA Ketones) 11:11 PM) [facility] [id number] 04:11:00 Test Item Value Reference Range Interpretation Comments UA Bili (test code = Negative *NA*(08/08/20 UA Bili) 11:11 PM) [facility] [id number] 04:11:00 Test Item Value Reference Range Interpretation Comments UA Blood (test code = Negative (08/08/20 11:11 [facility]A Blood) PM) [facility] [id number] 04:11:00 Test Item Value Reference Range Interpretation Comments UA Urobilinogen (test code = UA <=1.0 mg/dL 0.1-1.0 Urobilinogen) [facility] [id number] 04:11:00 Test Item Value Reference Range Interpretation Comments UA Nitrite (test code Negative (08/08/20 11:11 = UA Nitrite) PM) [facility] [id number] 04:11:00 Test Item Value Reference Range Interpretation Comments UA Leuk Est (test Negative (08/08/20 11:11 code = UA Leuk Est) PM) [facility] [id number] 04:11:00 Test Item Value Reference Range Interpretation Comments UA Sq Epi (test code = UA Sq Occasional /LPF Epi) [facility] [id number] 04:11:00 Test Item Value Reference Range Interpretation Comments UA WBC (test code = no gt See_Comment [Automa mauri message] The UA WBC) system which ge nerated this result transmit mauri reference range : <=5. The reference range was not used to interpr et this result as kala l/abnormal. [facility] [id number] 04:11:00 Test Item Value Reference Range Interpretation Comments UA RBC (test code = 2 See_Comment [Automa mauri message] The UA RBC) system which ge nerated this result transmit mauri reference range : <=2. The reference range was not used to interpr et this result as kala l/abnormal. [facility] [id number] 04:11:00 Test Item Value Reference Range Interpretation Comments UA Bacteria (test code = UA Occasional /HPF Bacteria) [facility] AND [id number] 04:11:00 Test Item Value Reference Range Interpretation Comments UA Mucus (test code = UA Mucus) Few /LPF [facility] [id number] 03:26:00 Test Item Value Reference Range Interpretation Comments BUN (test code = BUN) 9 7-22 [facility]2020-09-09 03:26:00 Test Item Value Reference Range Interpretation Comments Creatinine Lvl (test code = Creatinine 0.60 0.50-1.40 Lvl) [facility] [id number] 03:26:00 Test Item Value Reference Range Interpretation Comments Sodium Lvl (test code = Sodium Lvl) 136 135-145 [facility]2020-09-09 03:26:00 Test Item Value Reference Range Interpretation Comments Potassium Lvl (test code = Potassium 3.7 3.5-5.1 Lvl) [facility]2020-09-09 03:26:00 Test Item Value Reference Range Interpretation Comments Chloride Lvl (test code = Chloride Lvl) 106 95-109 [facility]2020-09-09 03:26:00 Test Item Value Reference Range Interpretation Comments CO2 (test code = CO2) 24 24-32 [facility] [id number] 03:26:00 Test Item Value Reference Range Interpretation Comments Eosinophils # (test code 0.2 See_Comment [A utomated message] The = Eosinophils #) system whic h generated this result tra nsmitted reference range : <=0.5. The reference r danni was not used to int erpret this result as normal/abnormal . [id number] 03:26:00 Test Item Value Reference Range Interpretation Comments Microcyte (test code = 1+ *ABN*(08/08/20 Microcyte) 10:26 PM) [facility] [id number] 03:26:00 Test Item Value Reference Range Interpretation Comments Total CK (test code = Total CK) 47 12-191 [facility] [id number] 03:26:00 Test Item Value Reference Range Interpretation Comments Troponin-I (test code no gt See_Comment [Auto mated message] The = Troponin-I) system which g enerated this result transmit mauri reference range : <=0.40. The reference r danni was not used to interpr et this result as kala l/abnormal. [place] 216630-09-09 03:26:00 Test Item Value Reference Range Interpretation Comments Glucose Lvl (test code = Glucose Lvl) 118 70-99 [place] 216630-09-09 03:26:00 Test Item Value Reference Range Interpretation Comments BUN (test code = BUN) 9 7-22 [place] 216630-09-09 03:26:00 Test Item Value Reference Range Interpretation Comments Creatinine Lvl (test code = Creatinine 0.60 0.50-1.40 Lvl) [place] 216630-09-09 03:26:00 Test Item Value Reference Range Interpretation Comments Sodium Lvl (test code = Sodium Lvl) 136 135-145 [facility] [id number] 03:26:00 Test Item Value Reference Range Interpretation Comments Potassium Lvl (test code = Potassium 3.7 3.5-5.1 Lvl) [facility] [id number] 03:26:00 Test Item Value Reference Range Interpretation Comments Chloride Lvl (test code = Chloride Lvl) 106 95-109 [place] 216630-09-09 03:26:00 Test Item Value Reference Range Interpretation Comments CO2 (test code = CO2) 24 24-32 [place] 216630-09-09 03:26:00 Test Item Value Reference Range Interpretation Comments Calcium Lvl (test code = Calcium Lvl) 9.0 8.5-10.5 [place] 216630-09-09 03:26:00 Test Item Value Reference Range Interpretation Comments Total Protein (test code = Total 8.1 6.4-8.4 Protein) [place] 216630-09-09 03:26:00 Test Item Value Reference Range Interpretation Comments Albumin Lvl (test code = Albumin Lvl) 4.0 3.5-5.0 [place] [address]-09-09 03:26:00 Test Item Value Reference Range Interpretation Comments ALT (test code = ALT) 48 See_Comment [Auto mated message] The system which ge nerated this result transmit mauri reference range : <=65. The reference range was not used to interpr et this result as kala l/abnormal. [facility] [id number] 03:26:00 Test Item Value Reference Range Interpretation Comments AST (test code = AST) 17 See_Comment [Auto mated message] The system which ge nerated this result transmit mauri reference range : <=37. The reference range was not used to interpr et this result as kala l/abnormal. [facility]2020-09-09 03:26:00 Test Item Value Reference Range Interpretation Comments Alk Phos (test code = Alk Phos) 109 39-136 [facility]2020-09-09 03:26:00 Test Item Value Reference Range Interpretation Comments Bili Total (test code = Bili Total) 0.5 0.2-1.3 [facility]2020-09-09 03:26:00 Test Item Value Reference Range Interpretation Comments AGAP (test code = AGAP) 9.7 10.0-20.0 [facility]2020-09-09 03:26:00 Test Item Value Reference Range Interpretation Comments B/C Ratio (test code = B/C Ratio) 15 1 6-25 [facility]2020-09-09 03:26:00 Test Item Value Reference Range Interpretation Comments Globulin (test code = Globulin) 4.1 2.7-4.2 [facility] [id number] 03:26:00 Test Item Value Reference Range Interpretation Comments A/G Ratio (test code = A/G Ratio) 1.0 1 0.7-1.6 [facility] [id number] 03:26:00 Test Item Value Reference Range Interpretation Comments eGFR (test code = eGFR) [address] [facility] Hosp[id number] 03:26:00 Test Item Value Reference Range Interpretation Comments S Preg (test code = S Negative *NA*(08/08/20 Preg) 10:26 PM) [facility] Hos[id number] 03:26:00 Test Item Value Reference Range Interpretation Comments WBC (test code = WBC) 11.3 3.7-10.4 [facility] HospitalZrlgoqiHXZUECMWYN7573-74-04 03:26:00 Test Item Value Reference Range Interpretation Comments RBC (test code = RBC) 5.22 4.20-5.40 [place] [id number] 03:26:00 Test Item Value Reference Range Interpretation Comments Hgb (test code = Hgb) 13.6 12.0-16.0 [facility] AmericaAjqzfftZNDTTEDHIB2947-93-75 03:26:00 Test Item Value Reference Range Interpretation Comments Hct (test code = Hct) 40.7 36.0-48.0 [facility] AmericaXfylhltJMQDTQVZRJ8611-06-75 03:26:00 Test Item Value Reference Range Interpretation Comments MCV (test code = MCV) 77.9 80.0-98.0 [facility] [id number] 03:26:00 Test Item Value Reference Range Interpretation Comments MCH (test code = MCH) 26.1 pg 27.0-31.0 [facility] AmericaPjxwijaBBCGHYDCNH5166-91-16 03:26:00 Test Item Value Reference Range Interpretation Comments MCHC (test code = MCHC) 33.6 32.0-36.0 [facility] AmericaHjtabxpWTYHLBPEGK6516-61-03 03:26:00 Test Item Value Reference Range Interpretation Comments RDW (test code = RDW) 15.2 11.5-14.5 [facility] AmericaEuppwfpEYZOHACQTU5111-51-86 03:26:00 Test Item Value Reference Range Interpretation Comments Platelet (test code = Platelet) 327 133-450 [facility] AmericaEbfjfazLBURFTGIVG4348-34-07 03:26:00 Test Item Value Reference Range Interpretation Comments MPV (test code = MPV) 9.1 7.4-10.4 [facility] AmericaInagyuePGCNITENFB7426-97-01 03:26:00 Test Item Value Reference Range Interpretation Comments Segs (test code = Segs) 78.9 45.0-75.0 [facility] AmericaHnbtylfEABPCDNBIB9371-66-71 03:26:00 Test Item Value Reference Range Interpretation Comments Lymphocytes (test code = Lymphocytes) 16.9 20.0-40.0 [place] [id number] 03:26:00 Test Item Value Reference Range Interpretation Comments Monocytes (test code = Monocytes) 2.2 2.0-12.0 [facility] AmericaQizjetfQLGPLZZQQE6010-49-80 03:26:00 Test Item Value Reference Range Interpretation Comments Eosinophils (test code = 1.8 See_Comment [A utomated message] The Eosinophils) system which ge nerated this result tra nsmitted reference range : <=4.0. The reference r danni was not used to int erpret this result as normal/abnormal . [facility] AmericaNvpqtqwJDQSSMEFVW3094-40-30 03:26:00 Test Item Value Reference Range Interpretation Comments Basophils (test code = 0.2 See_Comment [Aut omated message] The Basophils) system which ge nerated this result tra nsmitted reference range : <=1.0. The reference r danni was not used to int erpret this result as normal/abnormal . [facility] [id number] 03:26:00 Test Item Value Reference Range Interpretation Comments Neutrophils # (test code = Neutrophils 8.9 1.5-8.1 #) [facility] [id number] 03:26:00 Test Item Value Reference Range Interpretation Comments Lymphocytes # (test code = Lymphocytes 1.9 1.0-5.5 #) [facility] AmericaKxvlsdvUPOJAANNJJ5485-27-32 03:26:00 Test Item Value Reference Range Interpretation Comments Monocytes # (test code 0.3 See_Comment [Aut omated message] The = Monocytes #) system which generated this result tra nsmitted reference range : <=0.8. The reference r danni was not used to int erpret this result as normal/abnormal . [facility] [id number] 03:26:00 Test Item Value Reference Range Interpretation Comments Calcium Lvl (test code = Calcium Lvl) 9.0 8.5-10.5 [facility] [id number] 03:26:00 Test Item Value Reference Range Interpretation Comments Total Protein (test code = Total 8.1 6.4-8.4 Protein) [facility] [id number] 03:26:00 Test Item Value Reference Range Interpretation Comments Albumin Lvl (test code = Albumin Lvl) 4.0 3.5-5.0 [facility] [id number] 03:26:00 Test Item Value Reference Range Interpretation Comments ALT (test code = ALT) 48 See_Comment [Auto mated message] The system which ge nerated this result transmit mauri reference range : <=65. The reference range was not used to interpr et this result as kala l/abnormal. [facility] [employer] [id number] 03:26:00 Test Item Value Reference Range Interpretation Comments AST (test code = AST) 17 See_Comment [Auto mated message] The system which ge nerated this result transmit mauri reference range : <=37. The reference range was not used to interpr et this result as kala l/abnormal. [facility] [id number] 03:26:00 Test Item Value Reference Range Interpretation Comments Alk Phos (test code = Alk Phos) 109 39-136 [facility] [id number] 03:26:00 Test Item Value Reference Range Interpretation Comments Bili Total (test code = Bili Total) 0.5 0.2-1.3 [facility] [id number] 03:26:00 Test Item Value Reference Range Interpretation Comments AGAP (test code = AGAP) 9.7 10.0-20.0 [facility] [id number] 03:26:00 Test Item Value Reference Range Interpretation Comments B/C Ratio (test code = B/C Ratio) 15 1 6-25 [facility] [id number] 03:26:00 Test Item Value Reference Range Interpretation Comments Globulin (test code = Globulin) 4.1 2.7-4.2 [facility] [id number] 03:26:00 Test Item Value Reference Range Interpretation Comments A/G Ratio (test code = A/G Ratio) 1.0 1 0.7-1.6 [facility] [id number] 03:26:00 Test Item Value Reference Range Interpretation Comments eGFR (test code = eGFR) 129 [facility]ZzppuoqYUEZOQCDGNZHR9792-31-17 03:26:00 Test Item Value Reference Range Interpretation Comments S Preg (test code = S Negative *NA*(08/08/20 Preg) 10:26 PM) [facility] HospitalQdbackcWJPLIPGQAX4689-77-78 03:26:00 Test Item Value Reference Range Interpretation Comments WBC (test code = WBC) 11.3 3.7-10.4 [facility] AmericaSzepuetQIMMWMKGJY3962-50-84 03:26:00 Test Item Value Reference Range Interpretation Comments RBC (test code = RBC) 5.22 4.20-5.40 [facility] HospitalHwrddvoMEMVJXHFJQ6202-42-09 03:26:00 Test Item Value Reference Range Interpretation Comments Hgb (test code = Hgb) 13.6 12.0-16.0 [facility] AmericaVjqxmojTRIRLEVLWC6868-98-60 03:26:00 Test Item Value Reference Range Interpretation Comments Hct (test code = Hct) 40.7 36.0-48.0 [facility] AmericaYfueldbUNXDBTRKUG6013-72-40 03:26:00 Test Item Value Reference Range Interpretation Comments MCV (test code = MCV) 77.9 80.0-98.0 [facility] AmericaUwhzwbvYAVMYCOKME6527-47-03 03:26:00 Test Item Value Reference Range Interpretation Comments MCH (test code = MCH) 26.1 pg 27.0-31.0 [facility] AmericaIxetnxxMSYQESVLAP4052-20-05 03:26:00 Test Item Value Reference Range Interpretation Comments MCHC (test code = MCHC) 33.6 32.0-36.0 [facility] AmericaYfrmsznBEYALTCEXU6963-43-07 03:26:00 Test Item Value Reference Range Interpretation Comments RDW (test code = RDW) 15.2 11.5-14.5 [facility] AmericaIlcaxgsWBUKNBDYEN0617-79-34 03:26:00 Test Item Value Reference Range Interpretation Comments Platelet (test code = Platelet) 327 133-450 [facility] AmericaDxsasgsXKUZKUVPIL8976-22-92 03:26:00 Test Item Value Reference Range Interpretation Comments MPV (test code = MPV) 9.1 7.4-10.4 [facility] AmericaEeyacrkAGICSFCRQX6455-78-43 03:26:00 Test Item Value Reference Range Interpretation Comments Segs (test code = Segs) 78.9 45.0-75.0 [facility] AmericaXrivmenUVAIAZNWJL2589-12-85 03:26:00 Test Item Value Reference Range Interpretation Comments Lymphocytes (test code = Lymphocytes) 16.9 20.0-40.0 [place] 488310-09-09 03:26:00 Test Item Value Reference Range Interpretation Comments Monocytes (test code = Monocytes) 2.2 2.0-12.0 [facility] AmericaVvjuiqzIZCXOMLMCL9683-28-01 03:26:00 Test Item Value Reference Range Interpretation Comments Eosinophils (test code = 1.8 See_Comment [A utomated message] The Eosinophils) system which ge nerated this result tra nsmitted reference range : <=4.0. The reference r danni was not used to int erpret this result as normal/abnormal . [place] 488310-09-09 03:26:00 Test Item Value Reference Range Interpretation Comments Basophils (test code = 0.2 See_Comment [Aut omated message] The Basophils) system which ge nerated this result tra nsmitted reference range : <=1.0. The reference r danni was not used to int erpret this result as normal/abnormal . [facility] CenterNgvfggkAKCCYFZERI7372-36-03 03:26:00 Test Item Value Reference Range Interpretation Comments Neutrophils # (test code = Neutrophils 8.9 1.5-8.1 #) [facility] HospitalZxnfwlkFMRPQTXVCM6489-25-36 03:26:00 Test Item Value Reference Range Interpretation Comments Lymphocytes # (test code = Lymphocytes 1.9 1.0-5.5 #) [facility] HospitalGphktsoFUAHMWBJRM9876-16-89 03:26:00 Test Item Value Reference Range Interpretation Comments Monocytes # (test code 0.3 See_Comment [Aut omated message] The = Monocytes #) system which generated this result tra nsmitted reference range : <=0.8. The reference r danni was not used to int erpret this result as normal/abnormal . [facility] CenterZwzbhdgOVGWSEPKUD5801-41-89 03:26:00 Test Item Value Reference Range Interpretation Comments Eosinophils # (test code 0.2 See_Comment [A utomated message] The = Eosinophils #) system whic h generated this result tra nsmitted reference range : <=0.5. The reference r danni was not used to int erpret this result as normal/abnormal . [facility] CenterNizjzjiGITJISKYZH8909-45-05 03:26:00 Test Item Value Reference Range Interpretation Comments Microcyte (test code = 1+ *ABN*(08/08/20 Microcyte) 10:26 PM) [facility] CenterDecisyon [id number] 03:26:00 Test Item Value Reference Range Interpretation Comments Total CK (test code = Total CK) 47 12-191 [facility] [id number] 03:26:00 Test Item Value Reference Range Interpretation Comments Troponin-I (test code no gt See_Comment [Auto mated message] The = Troponin-I) system which g enerated this result transmit mauri reference range : <=0.40. The reference r danni was not used to interpr et this result as kala l/abnormal. [place] 216630-09-09 03:26:00 Test Item Value Reference Range Interpretation Comments Glucose Lvl (test code = Glucose Lvl) 118 70-99 [place] 216630-09-09 03:26:00 Test Item Value Reference Range Interpretation Comments BUN (test code = BUN) 9 7-22 [place] 216630-09-09 03:26:00 Test Item Value Reference Range Interpretation Comments Creatinine Lvl (test code = Creatinine 0.60 0.50-1.40 Lvl) [place] 216630-09-09 03:26:00 Test Item Value Reference Range Interpretation Comments Sodium Lvl (test code = Sodium Lvl) 136 135-145 [place] 216630-09-09 03:26:00 Test Item Value Reference Range Interpretation Comments Potassium Lvl (test code = Potassium 3.7 3.5-5.1 Lvl) [facility]2020-09-09 03:26:00 Test Item Value Reference Range Interpretation Comments Chloride Lvl (test code = Chloride Lvl) 106 95-109 [place] 216630-09-09 03:26:00 Test Item Value Reference Range Interpretation Comments CO2 (test code = CO2) 24 24-32 [place] 216630-09-09 03:26:00 Test Item Value Reference Range Interpretation Comments Calcium Lvl (test code = Calcium Lvl) 9.0 8.5-10.5 [place] 216630-09-09 03:26:00 Test Item Value Reference Range Interpretation Comments Total Protein (test code = Total 8.1 6.4-8.4 Protein) [place] 216630-09-09 03:26:00 Test Item Value Reference Range Interpretation Comments Albumin Lvl (test code = Albumin Lvl) 4.0 3.5-5.0 [place] 216630-09-09 03:26:00 Test Item Value Reference Range Interpretation Comments ALT (test code = ALT) 48 See_Comment [Auto mated message] The system which ge nerated this result transmit mauri reference range : <=65. The reference range was not used to interpr et this result as kala l/abnormal. [place] 216630-09-09 03:26:00 Test Item Value Reference Range Interpretation Comments AST (test code = AST) 17 See_Comment [Auto mated message] The system which ge nerated this result transmit mauri reference range : <=37. The reference range was not used to interpr et this result as kala l/abnormal. [facility]2020-09-09 03:26:00 Test Item Value Reference Range Interpretation Comments Alk Phos (test code = Alk Phos) 109 39-136 [facility]2020-09-09 03:26:00 Test Item Value Reference Range Interpretation Comments Bili Total (test code = Bili Total) 0.5 0.2-1.3 [facility]2020-09-09 03:26:00 Test Item Value Reference Range Interpretation Comments AGAP (test code = AGAP) 9.7 10.0-20.0 [facility]2020-09-09 03:26:00 Test Item Value Reference Range Interpretation Comments B/C Ratio (test code = B/C Ratio) 15 1 6-25 [facility]2020-09-09 03:26:00 Test Item Value Reference Range Interpretation Comments Globulin (test code = Globulin) 4.1 2.7-4.2 [facility]2020-09-09 03:26:00 Test Item Value Reference Range Interpretation Comments A/G Ratio (test code = A/G Ratio) 1.0 1 0.7-1.6 [facility]2020-09-09 03:26:00 Test Item Value Reference Range Interpretation Comments eGFR (test code = eGFR) 129 [facility]PntjrmtJTBBMNWMFALUC9797-55-98 03:26:00 Test Item Value Reference Range Interpretation Comments S Preg (test code = S Negative *NA*(08/08/20 Preg) 10:26 PM) [facility] AmericaVsgippaIVLDTFYSFW1806-09-21 03:26:00 Test Item Value Reference Range Interpretation Comments WBC (test code = WBC) 11.3 3.7-10.4 [facility] AmericaZvgtyhqSDPMZCALRL7038-98-10 03:26:00 Test Item Value Reference Range Interpretation Comments RBC (test code = RBC) 5.22 4.20-5.40 [facility] AmericaBcsybsbLPXPTQCKUZ2406-67-43 03:26:00 Test Item Value Reference Range Interpretation Comments Hgb (test code = Hgb) 13.6 12.0-16.0 [place] 488310-09-09 03:26:00 Test Item Value Reference Range Interpretation Comments Hct (test code = Hct) 40.7 36.0-48.0 [facility] AmericaDlaqnxoIRITDLETIL5747-91-38 03:26:00 Test Item Value Reference Range Interpretation Comments MCV (test code = MCV) 77.9 80.0-98.0 [place] 488310-09-09 03:26:00 Test Item Value Reference Range Interpretation Comments MCH (test code = MCH) 26.1 pg 27.0-31.0 [place] 488310-09-09 03:26:00 Test Item Value Reference Range Interpretation Comments MCHC (test code = MCHC) 33.6 32.0-36.0 [facility] AmericaLqaenjlNUVOVREGVG5667-21-05 03:26:00 Test Item Value Reference Range Interpretation Comments RDW (test code = RDW) 15.2 11.5-14.5 [place] 488310-09-09 03:26:00 Test Item Value Reference Range Interpretation Comments Platelet (test code = Platelet) 327 133-450 [facility] AmericaBfzkrohBXDSRCLAGE6156-01-28 03:26:00 Test Item Value Reference Range Interpretation Comments MPV (test code = MPV) 9.1 7.4-10.4 [facility] AmericaGwtzfqzIWIIYGARTZ4623-71-84 03:26:00 Test Item Value Reference Range Interpretation Comments Segs (test code = Segs) 78.9 45.0-75.0 [facility] AmericaByxirloQQSLBTSXNC4874-72-29 03:26:00 Test Item Value Reference Range Interpretation Comments Lymphocytes (test code = Lymphocytes) 16.9 20.0-40.0 [place] 488310-09-09 03:26:00 Test Item Value Reference Range Interpretation Comments Monocytes (test code = Monocytes) 2.2 2.0-12.0 [place] 488310-09-09 03:26:00 Test Item Value Reference Range Interpretation Comments Eosinophils (test code = 1.8 See_Comment [A utomated message] The Eosinophils) system which ge nerated this result tra nsmitted reference range : <=4.0. The reference r danni was not used to int erpret this result as normal/abnormal . [facility] AmericaXjulassNMTWUAEWEK9750-60-05 03:26:00 Test Item Value Reference Range Interpretation Comments Basophils (test code = 0.2 See_Comment [Aut omated message] The Basophils) system which ge nerated this result tra nsmitted reference range : <=1.0. The reference r danni was not used to int erpret this result as normal/abnormal . [facility] CenterAoelhofQOUNETGLAU3555-94-71 03:26:00 Test Item Value Reference Range Interpretation Comments Neutrophils # (test code = Neutrophils 8.9 1.5-8.1 #) [facility]TtwvtqlGXLKHJAFXB5636-[facility]-16 03:26:00 Test Item Value Reference Range Interpretation Comments Lymphocytes # (test code = Lymphocytes 1.9 1.0-5.5 #) [facility] HospitalDdnnxtoCHJRRAZIAA1130-85-57 03:26:00 Test Item Value Reference Range Interpretation Comments Monocytes # (test code 0.3 See_Comment [Aut omated message] The = Monocytes #) system which generated this result tra nsmitted reference range : <=0.8. The reference r danni was not used to int erpret this result as normal/abnormal . [facility] HospitalCpilyetZBQAJLEOZB3985-64-84 03:26:00 Test Item Value Reference Range Interpretation Comments Eosinophils # (test code 0.2 See_Comment [A utomated message] The = Eosinophils #) system whic h generated this result tra nsmitted reference range : <=0.5. The reference r danni was not used to int erpret this result as normal/abnormal . [facility] CenterZbbobdfLFYFKNXXUS3971-16-50 03:26:00 Test Item Value Reference Range Interpretation Comments Microcyte (test code = 1+ *ABN*(08/08/20 Microcyte) 10:26 PM) [facility] CenterDecisyon UDGFFTR6669-22-13 03:26:00 Test Item Value Reference Range Interpretation Comments Total CK (test code = Total CK) 47 12-191 [facility] HospitalHaus Bioceuticals [id number] 03:26:00 Test Item Value Reference Range Interpretation Comments Troponin-I (test code no gt See_Comment [Auto mated message] The = Troponin-I) system which g enerated this result transmit mauri reference range : <=0.40. The reference r danni was not used to interpr et this result as kala l/abnormal. [facility] [employer] [id number] 03:26:00 Test Item Value Reference Range Interpretation Comments Glucose Lvl (test code = Glucose Lvl) 118 70-99 [place] 216630-09-09 03:26:00 Test Item Value Reference Range Interpretation Comments BUN (test code = BUN) 9 7-22 [place] 216630-09-09 03:26:00 Test Item Value Reference Range Interpretation Comments Creatinine Lvl (test code = Creatinine 0.60 0.50-1.40 Lvl) [place] 216630-09-09 03:26:00 Test Item Value Reference Range Interpretation Comments Sodium Lvl (test code = Sodium Lvl) 136 135-145 [place] 216630-09-09 03:26:00 Test Item Value Reference Range Interpretation Comments Potassium Lvl (test code = Potassium 3.7 3.5-5.1 Lvl) [place] 216630-09-09 03:26:00 Test Item Value Reference Range Interpretation Comments Chloride Lvl (test code = Chloride Lvl) 106 95-109 [place] 216630-09-09 03:26:00 Test Item Value Reference Range Interpretation Comments CO2 (test code = CO2) 24 24-32 [place] 216630-09-09 03:26:00 Test Item Value Reference Range Interpretation Comments Calcium Lvl (test code = Calcium Lvl) 9.0 8.5-10.5 [place] 216630-09-09 03:26:00 Test Item Value Reference Range Interpretation Comments Total Protein (test code = Total 8.1 6.4-8.4 Protein) [place] 216630-09-09 03:26:00 Test Item Value Reference Range Interpretation Comments Albumin Lvl (test code = Albumin Lvl) 4.0 3.5-5.0 [place] 216630-09-09 03:26:00 Test Item Value Reference Range Interpretation Comments ALT (test code = ALT) 48 See_Comment [Auto mated message] The system which ge nerated this result transmit mauri reference range : <=65. The reference range was not used to interpr et this result as kala l/abnormal. [facility] HospitalBioActor [id number] 03:26:00 Test Item Value Reference Range Interpretation Comments AST (test code = AST) 17 See_Comment [Auto mated message] The system which ge nerated this result transmit mauri reference range : <=37. The reference range was not used to interpr et this result as kala l/abnormal. [facility] CenterFund[facility]) [id number] 03:26:00 Test Item Value Reference Range Interpretation Comments Alk Phos (test code = Alk Phos) 109 39-136 [facility] CenterFund[facility]) [id number] 03:26:00 Test Item Value Reference Range Interpretation Comments Bili Total (test code = Bili Total) 0.5 0.2-1.3 [facility] CenterFund[facility]) [id number] 03:26:00 Test Item Value Reference Range Interpretation Comments AGAP (test code = AGAP) 9.7 10.0-20.0 [facility] CenterFund[facility]) [id number] 03:26:00 Test Item Value Reference Range Interpretation Comments B/C Ratio (test code = B/C Ratio) 15 1 6-25 [facility] HospitalBio[facility] [id number] 03:26:00 Test Item Value Reference Range Interpretation Comments Globulin (test code = Globulin) 4.1 2.7-4.2 [facility]Fund[facility] [id number] 03:26:00 Test Item Value Reference Range Interpretation Comments A/G Ratio (test code = A/G Ratio) 1.0 1 0.7-1.6 [facility] CenterFund[facility] [id number] 03:26:00 Test Item Value Reference Range Interpretation Comments eGFR (test code = eGFR) 129 [facility] NorthwestBrwxyhfOAYWLWUTMUNLS0100-34-21 03:26:00 Test Item Value Reference Range Interpretation Comments S Preg (test code = S Negative *NA*(08/08/20 Preg) 10:26 PM) [facility] CenterZlllsgcUJFZPDTILD7456-85-73 03:26:00 Test Item Value Reference Range Interpretation Comments WBC (test code = WBC) 11.3 3.7-10.4 [facility] CenterRafgxdfXRDSRQBQFI4310-25-99 03:26:00 Test Item Value Reference Range Interpretation Comments RBC (test code = RBC) 5.22 4.20-5.40 [facility] HospitalYhxyfymWCNOHOFRAS5861-53-66 03:26:00 Test Item Value Reference Range Interpretation Comments Hgb (test code = Hgb) 13.6 12.0-16.0 [facility] AmericaNmyhuieWAAWTEGYFC5799-59-05 03:26:00 Test Item Value Reference Range Interpretation Comments Hct (test code = Hct) 40.7 36.0-48.0 [facility] AmericaHnwsxjsFJGWRLWDLK5548-78-05 03:26:00 Test Item Value Reference Range Interpretation Comments MCV (test code = MCV) 77.9 80.0-98.0 [facility] AmericaXtfgwuxJMDJGNFBBZ1717-29-07 03:26:00 Test Item Value Reference Range Interpretation Comments MCH (test code = MCH) 26.1 pg 27.0-31.0 [facility] AmericaVpbcjslZVCRWVOJSC9344-87-74 03:26:00 Test Item Value Reference Range Interpretation Comments MCHC (test code = MCHC) 33.6 32.0-36.0 [facility] AmericaVhkgypcFKHYRTDEVD0469-67-07 03:26:00 Test Item Value Reference Range Interpretation Comments RDW (test code = RDW) 15.2 11.5-14.5 [facility] AmericaBogbauoPVSRGIMBFZ5293-80-89 03:26:00 Test Item Value Reference Range Interpretation Comments Platelet (test code = Platelet) 327 133-450 [facility] AmericaLsxgydjMVUXKXDVRR4589-41-94 03:26:00 Test Item Value Reference Range Interpretation Comments MPV (test code = MPV) 9.1 7.4-10.4 [facility] AmericaLgxtgpaNRKFUMRMJA8137-09-47 03:26:00 Test Item Value Reference Range Interpretation Comments Segs (test code = Segs) 78.9 45.0-75.0 [facility] AmericaFtwetyaZMNXALBDFD6446-34-38 03:26:00 Test Item Value Reference Range Interpretation Comments Lymphocytes (test code = Lymphocytes) 16.9 20.0-40.0 [facility] AmericaXvdvvbpBRGYJYVOHU9397-36-67 03:26:00 Test Item Value Reference Range Interpretation Comments Monocytes (test code = Monocytes) 2.2 2.0-12.0 [place] 488310-09-09 03:26:00 Test Item Value Reference Range Interpretation Comments Eosinophils (test code = 1.8 See_Comment [A utomated message] The Eosinophils) system which ge nerated this result tra nsmitted reference range : <=4.0. The reference r danni was not used to int erpret this result as normal/abnormal . [facility] AmericaPmfgogmCWMKFVGLIV7658-13-71 03:26:00 Test Item Value Reference Range Interpretation Comments Basophils (test code = 0.2 See_Comment [Aut omated message] The Basophils) system which ge nerated this result tra nsmitted reference range : <=1.0. The reference r danni was not used to int erpret this result as normal/abnormal . [facility] CenterMxbhomgSAQELAZDKW1770-65-76 03:26:00 Test Item Value Reference Range Interpretation Comments Neutrophils # (test code = Neutrophils 8.9 1.5-8.1 #) [facility] HospitalHmievmrPKIBSKTDUA8938-73-72 03:26:00 Test Item Value Reference Range Interpretation Comments Lymphocytes # (test code = Lymphocytes 1.9 1.0-5.5 #) [facility] HospitalPqopwxnHRAVZTQOFE4209-97-44 03:26:00 Test Item Value Reference Range Interpretation Comments Monocytes # (test code 0.3 See_Comment [Aut omated message] The = Monocytes #) system which generated this result tra nsmitted reference range : <=0.8. The reference r danni was not used to int erpret this result as normal/abnormal . [facility] CenterZxinspfHTXXPTOKNS1454-72-64 03:26:00 Test Item Value Reference Range Interpretation Comments Eosinophils # (test code 0.2 See_Comment [A utomated message] The = Eosinophils #) system whic h generated this result tra nsmitted reference range : <=0.5. The reference r danni was not used to int erpret this result as normal/abnormal . [facility] CenterPolidqaQHKILYHMUA4628-73-28 03:26:00 Test Item Value Reference Range Interpretation Comments Microcyte (test code = 1+ *ABN*(08/08/20 Microcyte) 10:26 PM) [facility] CenterSentric MusicCARHunan Meijing [employer]AC [id number] 03:26:00 Test Item Value Reference Range Interpretation Comments Total CK (test code = Total CK) 47 12-191 [facility] CenterDecisyon [id number] 03:26:00 Test Item Value Reference Range Interpretation Comments Troponin-I (test code no gt See_Comment [Auto mated message] The = Troponin-I) system which g enerated this result transmit mauri reference range : <=0.40. The reference r danni was not used to interpr et this result as kala l/abnormal. [facility] [employer] [id number] 03:26:00 Test Item Value Reference Range Interpretation Comments Glucose Lvl (test code = Glucose Lvl) 118 70-99 [place] 216630-09-09 03:26:00 Test Item Value Reference Range Interpretation Comments BUN (test code = BUN) 9 7-22 [place] 216630-09-09 03:26:00 Test Item Value Reference Range Interpretation Comments Creatinine Lvl (test code = Creatinine 0.60 0.50-1.40 Lvl) [place] 216630-09-09 03:26:00 Test Item Value Reference Range Interpretation Comments Sodium Lvl (test code = Sodium Lvl) 136 135-145 [place] 216630-09-09 03:26:00 Test Item Value Reference Range Interpretation Comments Potassium Lvl (test code = Potassium 3.7 3.5-5.1 Lvl) [place] 216630-09-09 03:26:00 Test Item Value Reference Range Interpretation Comments Chloride Lvl (test code = Chloride Lvl) 106 95-109 [place] 216630-09-09 03:26:00 Test Item Value Reference Range Interpretation Comments CO2 (test code = CO2) 24 24-32 [place] 216630-09-09 03:26:00 Test Item Value Reference Range Interpretation Comments Calcium Lvl (test code = Calcium Lvl) 9.0 8.5-10.5 [place] 216630-09-09 03:26:00 Test Item Value Reference Range Interpretation Comments Total Protein (test code = Total 8.1 6.4-8.4 Protein) [place] 216630-09-09 03:26:00 Test Item Value Reference Range Interpretation Comments Albumin Lvl (test code = Albumin Lvl) 4.0 3.5-5.0 [place] 216630-09-09 03:26:00 Test Item Value Reference Range Interpretation Comments ALT (test code = ALT) 48 See_Comment [Auto mated message] The system which ge nerated this result transmit mauri reference range : <=65. The reference range was not used to interpr et this result as kala l/abnormal. [place] 216630-09-09 03:26:00 Test Item Value Reference Range Interpretation Comments AST (test code = AST) 17 See_Comment [Auto mated message] The system which ge nerated this result transmit mauri reference range : <=37. The reference range was not used to interpr et this result as kala l/abnormal. [facility] HospitalBio[facility] [id number] 03:26:00 Test Item Value Reference Range Interpretation Comments Alk Phos (test code = Alk Phos) 109 39-136 [facility]2020-09-09 03:26:00 Test Item Value Reference Range Interpretation Comments Bili Total (test code = Bili Total) 0.5 0.2-1.3 [facility]2020-09-09 03:26:00 Test Item Value Reference Range Interpretation Comments AGAP (test code = AGAP) 9.7 10.0-20.0 [facility]2020-09-09 03:26:00 Test Item Value Reference Range Interpretation Comments B/C Ratio (test code = B/C Ratio) 15 1 6-25 [facility]2020-09-09 03:26:00 Test Item Value Reference Range Interpretation Comments Globulin (test code = Globulin) 4.1 2.7-4.2 [facility]Bio[facility] [id number] 03:26:00 Test Item Value Reference Range Interpretation Comments A/G Ratio (test code = A/G Ratio) 1.0 1 0.7-1.6 [facility]2020-09-09 03:26:00 Test Item Value Reference Range Interpretation Comments eGFR (test code = eGFR) 129 [place] [id number] 03:26:00 Test Item Value Reference Range Interpretation Comments S Preg (test code = S Negative *NA*(08/08/20 Preg) 10:26 PM) [facility] HospitalFtpihfqPPGQTQVIBK8815-77-72 03:26:00 Test Item Value Reference Range Interpretation Comments WBC (test code = WBC) 11.3 3.7-10.4 [facility] AmericaKphlwytURUCLBMSNB9193-25-61 03:26:00 Test Item Value Reference Range Interpretation Comments RBC (test code = RBC) 5.22 4.20-5.40 [place] 488310-09-09 03:26:00 Test Item Value Reference Range Interpretation Comments Hgb (test code = Hgb) 13.6 12.0-16.0 [facility] AmericaSkrrkphEPEQLLJMJZ1352-18-44 03:26:00 Test Item Value Reference Range Interpretation Comments Hct (test code = Hct) 40.7 36.0-48.0 [facility] AmericaDzlgnbgRFPODOFIAN7286-35-69 03:26:00 Test Item Value Reference Range Interpretation Comments MCV (test code = MCV) 77.9 80.0-98.0 [place] 488310-09-09 03:26:00 Test Item Value Reference Range Interpretation Comments MCH (test code = MCH) 26.1 pg 27.0-31.0 [place] 488310-09-09 03:26:00 Test Item Value Reference Range Interpretation Comments MCHC (test code = MCHC) 33.6 32.0-36.0 [facility] AmericaQgaujxmWUWATYZRJN9337-99-10 03:26:00 Test Item Value Reference Range Interpretation Comments RDW (test code = RDW) 15.2 11.5-14.5 [place] 488310-09-09 03:26:00 Test Item Value Reference Range Interpretation Comments Platelet (test code = Platelet) 327 133-450 [facility] AmericaJkhsjdqTCNVZPSCBA1506-45-07 03:26:00 Test Item Value Reference Range Interpretation Comments MPV (test code = MPV) 9.1 7.4-10.4 [facility] AmericaPumdfrgYOOVGTRVZQ2137-86-57 03:26:00 Test Item Value Reference Range Interpretation Comments Segs (test code = Segs) 78.9 45.0-75.0 [facility] AmericaEggahozYJKVHFPJRL8012-85-83 03:26:00 Test Item Value Reference Range Interpretation Comments Lymphocytes (test code = Lymphocytes) 16.9 20.0-40.0 [place] 488310-09-09 03:26:00 Test Item Value Reference Range Interpretation Comments Monocytes (test code = Monocytes) 2.2 2.0-12.0 [place] 488310-09-09 03:26:00 Test Item Value Reference Range Interpretation Comments Eosinophils (test code = 1.8 See_Comment [A utomated message] The Eosinophils) system which ge nerated this result tra nsmitted reference range : <=4.0. The reference r danni was not used to int erpret this result as normal/abnormal . [facility] AmericaHxgomulEXYQLAIYEE4031-49-19 03:26:00 Test Item Value Reference Range Interpretation Comments Basophils (test code = 0.2 See_Comment [Aut omated message] The Basophils) system which ge nerated this result tra nsmitted reference range : <=1.0. The reference r danni was not used to int erpret this result as normal/abnormal . [facility] HospitalGhpbowsRPWUONRJEE4419-92-30 03:26:00 Test Item Value Reference Range Interpretation Comments Neutrophils # (test code = Neutrophils 8.9 1.5-8.1 #) [facility] HospitalIklxlihYRMSCSXNIY3517-78-06 03:26:00 Test Item Value Reference Range Interpretation Comments Lymphocytes # (test code = Lymphocytes 1.9 1.0-5.5 #) [facility] AmericaYnejknfCCWGIWCHKY0797-74-70 03:26:00 Test Item Value Reference Range Interpretation Comments Monocytes # (test code 0.3 See_Comment [Aut omated message] The = Monocytes #) system which generated this result tra nsmitted reference range : <=0.8. The reference r danni was not used to int erpret this result as normal/abnormal . [facility] HospitalIuzouunNSBPYZQDNH8519-51-35 03:26:00 Test Item Value Reference Range Interpretation Comments Eosinophils # (test code 0.2 See_Comment [A utomated message] The = Eosinophils #) system whic h generated this result tra nsmitted reference range : <=0.5. The reference r danni was not used to int erpret this result as normal/abnormal . [facility] HospitalDvzmpoxOMVOBSCVPV4366-36-45 03:26:00 Test Item Value Reference Range Interpretation Comments Microcyte (test code = 1+ *ABN*(08/08/20 Microcyte) 10:26 PM) [facility] CenterImaginovaAC TMFSNKR4018-10-26 03:26:00 Test Item Value Reference Range Interpretation Comments Total CK (test code = Total CK) 47 12-191 [facility] CenterDecisyon [id number] 03:26:00 Test Item Value Reference Range Interpretation Comments Troponin-I (test code no gt See_Comment [Auto mated message] The = Troponin-I) system which g enerated this result transmit mauri reference range : <=0.40. The reference r danni was not used to interpr et this result as kala l/abnormal. [facility] CenterFund[facility]) [id number] 03:26:00 Test Item Value Reference Range Interpretation Comments Glucose Lvl (test code = Glucose Lvl) 118 70-99 [place] 216630-09-09 03:26:00 Test Item Value Reference Range Interpretation Comments BUN (test code = BUN) 9 7-22 [place] 216630-09-09 03:26:00 Test Item Value Reference Range Interpretation Comments Creatinine Lvl (test code = Creatinine 0.60 0.50-1.40 Lvl) [place] 216630-09-09 03:26:00 Test Item Value Reference Range Interpretation Comments Sodium Lvl (test code = Sodium Lvl) 136 135-145 [place] 216630-09-09 03:26:00 Test Item Value Reference Range Interpretation Comments Potassium Lvl (test code = Potassium 3.7 3.5-5.1 Lvl) [place] 216630-09-09 03:26:00 Test Item Value Reference Range Interpretation Comments Chloride Lvl (test code = Chloride Lvl) 106 95-109 [place] 216630-09-09 03:26:00 Test Item Value Reference Range Interpretation Comments CO2 (test code = CO2) 24 24-32 [place] 216630-09-09 03:26:00 Test Item Value Reference Range Interpretation Comments Calcium Lvl (test code = Calcium Lvl) 9.0 8.5-10.5 [place] 216630-09-09 03:26:00 Test Item Value Reference Range Interpretation Comments Total Protein (test code = Total 8.1 6.4-8.4 Protein) [place] 216630-09-09 03:26:00 Test Item Value Reference Range Interpretation Comments Albumin Lvl (test code = Albumin Lvl) 4.0 3.5-5.0 [place] 216630-09-09 03:26:00 Test Item Value Reference Range Interpretation Comments ALT (test code = ALT) 48 See_Comment [Auto mated message] The system which ge nerated this result transmit mauri reference range : <=65. The reference range was not used to interpr et this result as kala l/abnormal. [place] 216630-09-09 03:26:00 Test Item Value Reference Range Interpretation Comments AST (test code = AST) 17 See_Comment [Auto mated message] The system which ge nerated this result transmit mauri reference range : <=37. The reference range was not used to interpr et this result as kala l/abnormal. [facility]Bio[facility] [id number] 03:26:00 Test Item Value Reference Range Interpretation Comments Alk Phos (test code = Alk Phos) 109 39-136 [facility] HospitalBio[facility] [id number] 03:26:00 Test Item Value Reference Range Interpretation Comments Bili Total (test code = Bili Total) 0.5 0.2-1.3 [facility]Bio[facility] [id number] 03:26:00 Test Item Value Reference Range Interpretation Comments AGAP (test code = AGAP) 9.7 10.0-20.0 [facility] CenterFund[facility] ([facility]) [id number] 03:26:00 Test Item Value Reference Range Interpretation Comments B/C Ratio (test code = B/C Ratio) 15 1 6-25 [facility] [id number] 03:26:00 Test Item Value Reference Range Interpretation Comments Globulin (test code = Globulin) 4.1 2.7-4.2 [facility] [id number] 03:26:00 Test Item Value Reference Range Interpretation Comments A/G Ratio (test code = A/G Ratio) 1.0 1 0.7-1.6 [facility] [id number] 03:26:00 Test Item Value Reference Range Interpretation Comments eGFR (test code = eGFR) 129 [place] [id number] 03:26:00 Test Item Value Reference Range Interpretation Comments S Preg (test code = S Negative *NA*(08/08/20 Preg) 10:26 PM) [facility] HospitalVmiqoffDWKGBHRLNT7268-21-96 03:26:00 Test Item Value Reference Range Interpretation Comments WBC (test code = WBC) 11.3 3.7-10.4 [facility] HospitalNqgvnvnPQUWPLSVRR7649-28-35 03:26:00 Test Item Value Reference Range Interpretation Comments RBC (test code = RBC) 5.22 4.20-5.40 [facility] AmericaEwysrjiECWWQHLSOG9106-24-80 03:26:00 Test Item Value Reference Range Interpretation Comments Hgb (test code = Hgb) 13.6 12.0-16.0 [facility] HospitalVfnaqitRNDYLWSFBX3617-16-93 03:26:00 Test Item Value Reference Range Interpretation Comments Hct (test code = Hct) 40.7 36.0-48.0 [place] 488310-09-09 03:26:00 Test Item Value Reference Range Interpretation Comments MCV (test code = MCV) 77.9 80.0-98.0 [place] 488310-09-09 03:26:00 Test Item Value Reference Range Interpretation Comments MCH (test code = MCH) 26.1 pg 27.0-31.0 [place] 488310-09-09 03:26:00 Test Item Value Reference Range Interpretation Comments MCHC (test code = MCHC) 33.6 32.0-36.0 [place] 488310-09-09 03:26:00 Test Item Value Reference Range Interpretation Comments RDW (test code = RDW) 15.2 11.5-14.5 [place] 488310-09-09 03:26:00 Test Item Value Reference Range Interpretation Comments Platelet (test code = Platelet) 327 133-450 [facility] AmericaQpblpgfUFQCCDFYKL1913-09-36 03:26:00 Test Item Value Reference Range Interpretation Comments MPV (test code = MPV) 9.1 7.4-10.4 [place] 488310-09-09 03:26:00 Test Item Value Reference Range Interpretation Comments Segs (test code = Segs) 78.9 45.0-75.0 [facility] AmericaLzbhkswBWLRENDJGZ7014-28-67 03:26:00 Test Item Value Reference Range Interpretation Comments Lymphocytes (test code = Lymphocytes) 16.9 20.0-40.0 [place] 488310-09-09 03:26:00 Test Item Value Reference Range Interpretation Comments Monocytes (test code = Monocytes) 2.2 2.0-12.0 [place] 488310-09-09 03:26:00 Test Item Value Reference Range Interpretation Comments Eosinophils (test code = 1.8 See_Comment [A utomated message] The Eosinophils) system which ge nerated this result tra nsmitted reference range : <=4.0. The reference r danni was not used to int erpret this result as normal/abnormal . [place] 488310-09-09 03:26:00 Test Item Value Reference Range Interpretation Comments Basophils (test code = 0.2 See_Comment [Aut omated message] The Basophils) system which ge nerated this result tra nsmitted reference range : <=1.0. The reference r danni was not used to int erpret this result as normal/abnormal . [facility] CenterNmlbondCAFIJYPECG8553-78-19 03:26:00 Test Item Value Reference Range Interpretation Comments Neutrophils # (test code = Neutrophils 8.9 1.5-8.1 #) [facility]BlfncbiHSRATJLWCO2557-66-04 03:26:00 Test Item Value Reference Range Interpretation Comments Lymphocytes # (test code = Lymphocytes 1.9 1.0-5.5 #) [facility] HospitalTdwyuesKIRRWBMPUX3522-38-88 03:26:00 Test Item Value Reference Range Interpretation Comments Monocytes # (test code 0.3 See_Comment [Aut omated message] The = Monocytes #) system which generated this result tra nsmitted reference range : <=0.8. The reference r danni was not used to int erpret this result as normal/abnormal . [facility] CenterAjkihytWIQSRXUWCR5661-76-32 03:26:00 Test Item Value Reference Range Interpretation Comments Eosinophils # (test code 0.2 See_Comment [A utomated message] The = Eosinophils #) system whic h generated this result tra nsmitted reference range : <=0.5. The reference r danni was not used to int erpret this result as normal/abnormal . [facility] CenterZokwrrvLQQFEQFSJB9840-62-71 03:26:00 Test Item Value Reference Range Interpretation Comments Microcyte (test code = 1+ *ABN*(08/08/20 Microcyte) 10:26 PM) [facility] CenterDecisyon RRFBUHJ8702-39-17 03:26:00 Test Item Value Reference Range Interpretation Comments Total CK (test code = Total CK) 47 12-191 [facility] CenterDec[facility] [id number] 03:26:00 Test Item Value Reference Range Interpretation Comments Troponin-I (test code no gt See_Comment [Auto mated message] The = Troponin-I) system which g enerated this result transmit mauri reference range : <=0.40. The reference r danni was not used to interpr et this result as kala l/abnormal. [facility] CenterFund[facility] [id number] 03:26:00 Test Item Value Reference Range Interpretation Comments Glucose Lvl (test code = Glucose Lvl) 118 70-99 [place] 216630-09-09 03:26:00 Test Item Value Reference Range Interpretation Comments BUN (test code = BUN) 9 7-22 [place] 216630-09-09 03:26:00 Test Item Value Reference Range Interpretation Comments Creatinine Lvl (test code = Creatinine 0.60 0.50-1.40 Lvl) [place] 216630-09-09 03:26:00 Test Item Value Reference Range Interpretation Comments Sodium Lvl (test code = Sodium Lvl) 136 135-145 [place] [address]-09-09 03:26:00 Test Item Value Reference Range Interpretation Comments Potassium Lvl (test code = Potassium 3.7 3.5-5.1 Lvl) [place] 216630-09-09 03:26:00 Test Item Value Reference Range Interpretation Comments Chloride Lvl (test code = Chloride Lvl) 106 95-109 [place] 216630-09-09 03:26:00 Test Item Value Reference Range Interpretation Comments CO2 (test code = CO2) 24 24-32 [place] 216630-09-09 03:26:00 Test Item Value Reference Range Interpretation Comments Calcium Lvl (test code = Calcium Lvl) 9.0 8.5-10.5 [place] [address]-09-09 03:26:00 Test Item Value Reference Range Interpretation Comments Total Protein (test code = Total 8.1 6.4-8.4 Protein) [place] 216630-09-09 03:26:00 Test Item Value Reference Range Interpretation Comments Albumin Lvl (test code = Albumin Lvl) 4.0 3.5-5.0 [place] 216630-09-09 03:26:00 Test Item Value Reference Range Interpretation Comments ALT (test code = ALT) 48 See_Comment [Auto mated message] The system which ge nerated this result transmit mauri reference range : <=65. The reference range was not used to interpr et this result as kala l/abnormal. [place] [address]-09-09 03:26:00 Test Item Value Reference Range Interpretation Comments AST (test code = AST) 17 See_Comment [Auto mated message] The system which ge nerated this result transmit mauri reference range : <=37. The reference range was not used to interpr et this result as kala l/abnormal. [facility] [id number] 03:26:00 Test Item Value Reference Range Interpretation Comments Alk Phos (test code = Alk Phos) 109 39-136 [facility]2020-09-09 03:26:00 Test Item Value Reference Range Interpretation Comments Bili Total (test code = Bili Total) 0.5 0.2-1.3 [facility]2020-09-09 03:26:00 Test Item Value Reference Range Interpretation Comments AGAP (test code = AGAP) 9.7 10.0-20.0 [facility] CenterSentric MusicFORMERLY VID[facility] DUPLIN HOSPITALDLZUQ0958-95-03 03:26:00 Test Item Value Reference Range Interpretation Comments B/C Ratio (test code = B/C Ratio) 15 1 6-25 [facility]2020-09-09 03:26:00 Test Item Value Reference Range Interpretation Comments Globulin (test code = Globulin) 4.1 2.7-4.2 [facility] [id number] 03:26:00 Test Item Value Reference Range Interpretation Comments A/G Ratio (test code = A/G Ratio) 1.0 1 0.7-1.6 [facility] [id number] 03:26:00 Test Item Value Reference Range Interpretation Comments eGFR (test code = eGFR) 129 [facility] NorthwestMqrsitiXCLWTDESSZZUQ9397-90-03 03:26:00 Test Item Value Reference Range Interpretation Comments S Preg (test code = S Negative *NA*(08/08/20 Preg) 10:26 PM) [facility] HospitalYjvutceSHOYEVZJRA7734-98-32 03:26:00 Test Item Value Reference Range Interpretation Comments WBC (test code = WBC) 11.3 3.7-10.4 [facility] AmericaHhadgfmAECWSXWUEQ9430-69-08 03:26:00 Test Item Value Reference Range Interpretation Comments RBC (test code = RBC) 5.22 4.20-5.40 [facility] AmericaDmlrjdgXAXJZNBJCJ1426-24-10 03:26:00 Test Item Value Reference Range Interpretation Comments Hgb (test code = Hgb) 13.6 12.0-16.0 [place] [address]-09-09 03:26:00 Test Item Value Reference Range Interpretation Comments Hct (test code = Hct) 40.7 36.0-48.0 [facility] AmericaUcotelzVMCDBXOARI0716-57-63 03:26:00 Test Item Value Reference Range Interpretation Comments MCV (test code = MCV) 77.9 80.0-98.0 [facility] AmericaLwedbpaQTPJZSUAFK7741-64-76 03:26:00 Test Item Value Reference Range Interpretation Comments MCH (test code = MCH) 26.1 pg 27.0-31.0 [facility] AmericaZutwnrcVZMRQHMODN0264-18-03 03:26:00 Test Item Value Reference Range Interpretation Comments MCHC (test code = MCHC) 33.6 32.0-36.0 [facility] AmericaAvpzhvuGUDLDPOTZS7904-49-88 03:26:00 Test Item Value Reference Range Interpretation Comments RDW (test code = RDW) 15.2 11.5-14.5 [facility] AmericaKepxlucEIATDXNNZI3546-76-42 03:26:00 Test Item Value Reference Range Interpretation Comments Platelet (test code = Platelet) 327 133-450 [facility] AmericaOskiydqKHCFGWTFCW7829-34-00 03:26:00 Test Item Value Reference Range Interpretation Comments MPV (test code = MPV) 9.1 7.4-10.4 [facility] AmericaMzdasvuOJLKGBMMJB1788-25-85 03:26:00 Test Item Value Reference Range Interpretation Comments Segs (test code = Segs) 78.9 45.0-75.0 [facility] AmericaJnixlmaIOJKIYCOVO5547-49-40 03:26:00 Test Item Value Reference Range Interpretation Comments Lymphocytes (test code = Lymphocytes) 16.9 20.0-40.0 [place] 488310-09-09 03:26:00 Test Item Value Reference Range Interpretation Comments Monocytes (test code = Monocytes) 2.2 2.0-12.0 [place] 488310-09-09 03:26:00 Test Item Value Reference Range Interpretation Comments Eosinophils (test code = 1.8 See_Comment [A utomated message] The Eosinophils) system which ge nerated this result tra nsmitted reference range : <=4.0. The reference r danni was not used to int erpret this result as normal/abnormal . [facility] AmericaRnubgjoNDMKFLIVIG1305-43-64 03:26:00 Test Item Value Reference Range Interpretation Comments Basophils (test code = 0.2 See_Comment [Aut omated message] The Basophils) system which ge nerated this result tra nsmitted reference range : <=1.0. The reference r danni was not used to int erpret this result as normal/abnormal . [facility] CenterPkenqzsTNFALAZTAP8308-49-98 03:26:00 Test Item Value Reference Range Interpretation Comments Neutrophils # (test code = Neutrophils 8.9 1.5-8.1 #) [facility] HospitalYsqamyqZMXFBSGJQC6700-79-23 03:26:00 Test Item Value Reference Range Interpretation Comments Lymphocytes # (test code = Lymphocytes 1.9 1.0-5.5 #) [facility] HospitalYdvmrtrCDDBQXJODY9532-40-05 03:26:00 Test Item Value Reference Range Interpretation Comments Monocytes # (test code 0.3 See_Comment [Aut omated message] The = Monocytes #) system which generated this result tra nsmitted reference range : <=0.8. The reference r danni was not used to int erpret this result as normal/abnormal . [facility] CenterLgvlvwbVTTKUYCNUG2867-72-15 03:26:00 Test Item Value Reference Range Interpretation Comments Eosinophils # (test code 0.2 See_Comment [A utomated message] The = Eosinophils #) system whic h generated this result tra nsmitted reference range : <=0.5. The reference r danni was not used to int erpret this result as normal/abnormal . [facility] CenterVwpvvboMSRYMFYUAH0321-16-25 03:26:00 Test Item Value Reference Range Interpretation Comments Microcyte (test code = 1+ *ABN*(08/08/20 Microcyte) 10:26 PM) [facility] CenterSoWeTrip2020-09-09 03:26:00 Test Item Value Reference Range Interpretation Comments Total CK (test code = Total CK) 47 12-191 [facility] CenterDecisyon FHQVTJI2109-59-00 03:26:00 Test Item Value Reference Range Interpretation Comments Troponin-I (test code no gt See_Comment [Auto mated message] The = Troponin-I) system which g enerated this result transmit mauri reference range : <=0.40. The reference r danni was not used to interpr et this result as kala l/abnormal. [facility]2020-09-09 03:26:00 Test Item Value Reference Range Interpretation Comments Glucose Lvl (test code = Glucose Lvl) 118 70-99 [place] 216630-09-09 03:26:00 Test Item Value Reference Range Interpretation Comments BUN (test code = BUN) 9 7-22 [place] 216630-09-09 03:26:00 Test Item Value Reference Range Interpretation Comments Creatinine Lvl (test code = Creatinine 0.60 0.50-1.40 Lvl) [place] 216630-09-09 03:26:00 Test Item Value Reference Range Interpretation Comments Sodium Lvl (test code = Sodium Lvl) 136 135-145 [place] 216630-09-09 03:26:00 Test Item Value Reference Range Interpretation Comments Potassium Lvl (test code = Potassium 3.7 3.5-5.1 Lvl) [place] 216630-09-09 03:26:00 Test Item Value Reference Range Interpretation Comments Chloride Lvl (test code = Chloride Lvl) 106 95-109 [place] 216630-09-09 03:26:00 Test Item Value Reference Range Interpretation Comments CO2 (test code = CO2) 24 24-32 [place] 216630-09-09 03:26:00 Test Item Value Reference Range Interpretation Comments Calcium Lvl (test code = Calcium Lvl) 9.0 8.5-10.5 [place] 216630-09-09 03:26:00 Test Item Value Reference Range Interpretation Comments Total Protein (test code = Total 8.1 6.4-8.4 Protein) [place] [address]-09-09 03:26:00 Test Item Value Reference Range Interpretation Comments Albumin Lvl (test code = Albumin Lvl) 4.0 3.5-5.0 [place] 216630-09-09 03:26:00 Test Item Value Reference Range Interpretation Comments ALT (test code = ALT) 48 See_Comment [Auto mated message] The system which ge nerated this result transmit mauri reference range : <=65. The reference range was not used to interpr et this result as kala l/abnormal. [place] 216630-09-09 03:26:00 Test Item Value Reference Range Interpretation Comments AST (test code = AST) 17 See_Comment [Auto mated message] The system which ge nerated this result transmit mauri reference range : <=37. The reference range was not used to interpr et this result as kala l/abnormal. [facility]Bio[facility] [id number] 03:26:00 Test Item Value Reference Range Interpretation Comments Alk Phos (test code = Alk Phos) 109 39-136 [facility]2020-09-09 03:26:00 Test Item Value Reference Range Interpretation Comments Bili Total (test code = Bili Total) 0.5 0.2-1.3 [facility]2020-09-09 03:26:00 Test Item Value Reference Range Interpretation Comments AGAP (test code = AGAP) 9.7 10.0-20.0 [facility]2020-09-09 03:26:00 Test Item Value Reference Range Interpretation Comments B/C Ratio (test code = B/C Ratio) 15 1 6-25 [facility]2020-09-09 03:26:00 Test Item Value Reference Range Interpretation Comments Globulin (test code = Globulin) 4.1 2.7-4.2 [facility]2020-09-09 03:26:00 Test Item Value Reference Range Interpretation Comments A/G Ratio (test code = A/G Ratio) 1.0 1 0.7-1.6 [facility]2020-09-09 03:26:00 Test Item Value Reference Range Interpretation Comments eGFR (test code = eGFR) [address] [facility] HospitalHlqukxyCAQLGEEFTHQUS4574-67-57 03:26:00 Test Item Value Reference Range Interpretation Comments S Preg (test code = S Negative *NA*(08/08/20 Preg) 10:26 PM) [facility] AmericaPcgfnxzHJOTSWEBYV0814-16-96 03:26:00 Test Item Value Reference Range Interpretation Comments WBC (test code = WBC) 11.3 3.7-10.4 [facility] AmericaOiswdfdSASRBBJPNI3374-48-45 03:26:00 Test Item Value Reference Range Interpretation Comments RBC (test code = RBC) 5.22 4.20-5.40 [facility] AmericaPprtmsyMOURKXAFCZ8567-21-38 03:26:00 Test Item Value Reference Range Interpretation Comments Hgb (test code = Hgb) 13.6 12.0-16.0 [place] [address]-09-09 03:26:00 Test Item Value Reference Range Interpretation Comments Hct (test code = Hct) 40.7 36.0-48.0 [place] 488310-09-09 03:26:00 Test Item Value Reference Range Interpretation Comments MCV (test code = MCV) 77.9 80.0-98.0 [place] 488310-09-09 03:26:00 Test Item Value Reference Range Interpretation Comments MCH (test code = MCH) 26.1 pg 27.0-31.0 [place] 488310-09-09 03:26:00 Test Item Value Reference Range Interpretation Comments MCHC (test code = MCHC) 33.6 32.0-36.0 [place] 488310-09-09 03:26:00 Test Item Value Reference Range Interpretation Comments RDW (test code = RDW) 15.2 11.5-14.5 [place] 488310-09-09 03:26:00 Test Item Value Reference Range Interpretation Comments Platelet (test code = Platelet) 327 133-450 [facility] AmericaHhstqnyBAQENBNUPK1826-44-10 03:26:00 Test Item Value Reference Range Interpretation Comments MPV (test code = MPV) 9.1 7.4-10.4 [place] 488310-09-09 03:26:00 Test Item Value Reference Range Interpretation Comments Segs (test code = Segs) 78.9 45.0-75.0 [facility] AmericaYinxdeaFHCKQDPTET3170-73-94 03:26:00 Test Item Value Reference Range Interpretation Comments Lymphocytes (test code = Lymphocytes) 16.9 20.0-40.0 [place] 488310-09-09 03:26:00 Test Item Value Reference Range Interpretation Comments Monocytes (test code = Monocytes) 2.2 2.0-12.0 [place] 488310-09-09 03:26:00 Test Item Value Reference Range Interpretation Comments Eosinophils (test code = 1.8 See_Comment [A utomated message] The Eosinophils) system which ge nerated this result tra nsmitted reference range : <=4.0. The reference r danni was not used to int erpret this result as normal/abnormal . [place] [address]-09-09 03:26:00 Test Item Value Reference Range Interpretation Comments Basophils (test code = 0.2 See_Comment [Aut omated message] The Basophils) system which ge nerated this result tra nsmitted reference range : <=1.0. The reference r danni was not used to int erpret this result as normal/abnormal . [facility] AmericaRvqqhtwSVLKVXIDJO8462-46-10 03:26:00 Test Item Value Reference Range Interpretation Comments Neutrophils # (test code = Neutrophils 8.9 1.5-8.1 #) [facility] AmericaNtejccyLZRLDPLJCJ3221-65-30 03:26:00 Test Item Value Reference Range Interpretation Comments Lymphocytes # (test code = Lymphocytes 1.9 1.0-5.5 #) [facility] AmericaVxfhcigGGOMZFUMDN2091-25-05 03:26:00 Test Item Value Reference Range Interpretation Comments Monocytes # (test code 0.3 See_Comment [Aut omated message] The = Monocytes #) system which generated this result tra nsmitted reference range : <=0.8. The reference r danni was not used to int erpret this result as normal/abnormal . [facility] AmericaSlvlostPULRJLSNJP1615-32-55 03:26:00 Test Item Value Reference Range Interpretation Comments Eosinophils # (test code 0.2 See_Comment [A utomated message] The = Eosinophils #) system whic h generated this result tra nsmitted reference range : <=0.5. The reference r danni was not used to int erpret this result as normal/abnormal . [facility] AmericaOnrmfqeRQUEUFSQNE2594-22-69 03:26:00 Test Item Value Reference Range Interpretation Comments Microcyte (test code = 1+ *ABN*(08/08/20 Microcyte) 10:26 PM) [facility]En[facility] RDUMQYR7700-25-04 03:26:00 Test Item Value Reference Range Interpretation Comments Total CK (test code = Total CK) 47 12-191 [facility]En[facility] [id number] 03:26:00 Test Item Value Reference Range Interpretation Comments Troponin-I (test code no gt See_Comment [Auto mated message] The = Troponin-I) system which g enerated this result transmit mauri reference range : <=0.40. The reference r danni was not used to interpr et this result as kala l/abnormal. [facility] CenterFund[facility] [id number] 03:26:00 Test Item Value Reference Range Interpretation Comments Glucose Lvl (test code = Glucose Lvl) 118 70-99 [facility]Fund[facility] [id number] 19:20:00 Test Item Value Reference Range Interpretation Comments eGFR (test code = eGFR) 124 [facility]2014-06-24 19:20:00 Test Item Value Reference Range Interpretation Comments Calcium Lvl (test code = Calcium Lvl) 9.7 8.5-10.5 [facility]2014-06-24 19:20:00 Test Item Value Reference Range Interpretation Comments Potassium Lvl (test code = Potassium 3.5 3.5-5.1 Lvl) [facility]2014-06-24 19:20:00 Test Item Value Reference Range Interpretation Comments Sodium Lvl (test code = Sodium Lvl) 139 135-145 [facility]2014-06-24 19:20:00 Test Item Value Reference Range Interpretation Comments Creatinine Lvl (test code = Creatinine 0.6 0.5-1.4 Lvl) [facility]2014-06-24 19:20:00 Test Item Value Reference Range Interpretation Comments CO2 (test code = CO2) 21 24-32 [facility]2014-06-24 19:20:00 Test Item Value Reference Range Interpretation Comments Chloride Lvl (test code = Chloride Lvl) 108 95-109 [facility]2014-06-24 19:20:00 Test Item Value Reference Range Interpretation Comments BUN (test code = BUN) 7 7-22 [facility]2014-06-24 19:20:00 Test Item Value Reference Range Interpretation Comments Glucose Lvl (test code = Glucose Lvl) 146 70-99 [facility]2014-06-24 19:20:00 Test Item Value Reference Range Interpretation Comments AGAP (test code = AGAP) 13.5 10.0-20.0 [facility] AmericaLhavlhcZRCTALTLCU4262-11-73 19:20:00 Test Item Value Reference Range Interpretation Comments Lymphocytes (test code = Lymphocytes) 10.1 20.0-40.0 [facility] AmericaMfwsriwTPCUOEABUJ3170-09-32 19:20:00 Test Item Value Reference Range Interpretation Comments Segs-Bands # (test code = Segs-Bands #) 9.3 1.5-8.1 [facility] AmericaDrihechCMQNOBMIRR1204-50-61 19:20:00 Test Item Value Reference Range Interpretation Comments Lymphocytes # (test code = Lymphocytes 1.1 1.0-5.5 #) [facility] AmericaWjfbpauRPLXCXCTGN4353-56-11 19:20:00 Test Item Value Reference Range Interpretation Comments Segs (test code = Segs) 89.0 45.0-75.0 [facility] AmericaAcgnvwmIDYAKTYBNL1622-27-82 19:20:00 Test Item Value Reference Range Interpretation Comments Basophils (test code = 0.1 See_Comment [Aut omated message] The Basophils) system which ge nerated this result tra nsmitted reference range : <=1.0. The reference r danni was not used to int erpret this result as normal/abnormal . [facility] AmericaUwlsgroSKEUPWZXRK8957-49-09 19:20:00 Test Item Value Reference Range Interpretation Comments Monocytes (test code = Monocytes) 0.8 2.0-12.0 [facility] AmericaYwojgboWABKKRMUVC9170-15-86 19:20:00 Test Item Value Reference Range Interpretation Comments Monocytes # (test code 0.1 See_Comment [Aut omated message] The = Monocytes #) system which generated this result tra nsmitted reference range : <=0.8. The reference r danni was not used to int erpret this result as normal/abnormal . [facility] AmericaPxbtnohPZVBHLVMLZ7853-34-99 19:20:00 Test Item Value Reference Range Interpretation Comments INR (test code = INR) 1.01 0.85-1.17 [facility] AmericaMqqhkrvWNDEKTVCXS0803-00-77 19:20:00 Test Item Value Reference Range Interpretation Comments PT (test code = PT) 13.2 s 12.0-14.7 [facility] AmericaXkmgopcCQSDTAEEJQ5799-47-50 19:20:00 Test Item Value Reference Range Interpretation Comments MCV (test code = MCV) 82.6 81.0-99.0 [facility] AmericaZckcfdmNKDFVCMZPB1653-93-79 19:20:00 Test Item Value Reference Range Interpretation Comments Hct (test code = Hct) 37.0 36.0-48.0 [facility] AmericaUdnbdniRNETTDNZRT6597-22-52 19:20:00 Test Item Value Reference Range Interpretation Comments MCH (test code = MCH) 28.7 pg 27.0-31.0 [facility] AmericaNaywqzrHPWVVQHRLX6581-15-51 19:20:00 Test Item Value Reference Range Interpretation Comments MCHC (test code = MCHC) 34.7 32.0-36.0 [facility] AmericaHhjbvgzVKLPCEBKKJ0177-14-34 19:20:00 Test Item Value Reference Range Interpretation Comments RDW (test code = RDW) 13.6 11.5-14.5 [facility] AmericaDduujnsDLNBFDAIYM2706-36-65 19:20:00 Test Item Value Reference Range Interpretation Comments Platelet (test code = Platelet) 282 133-450 [facility] AmericaCfmkbjnHHCDORBYJB5300-17-05 19:20:00 Test Item Value Reference Range Interpretation Comments MPV (test code = MPV) 8.7 7.4-10.4 [facility] AmericaBkzwicmRKHFYUHCZI0759-68-15 19:20:00 Test Item Value Reference Range Interpretation Comments Hgb (test code = Hgb) 12.8 12.0-16.0 [facility] AmericaCgsslkxTUAWZFATTG3843-81-93 19:20:00 Test Item Value Reference Range Interpretation Comments RBC (test code = RBC) 4.47 4.20-5.40 [facility] AmericaJcwouarGYLAGMFVHT0132-08-23 19:20:00 Test Item Value Reference Range Interpretation Comments WBC (test code = WBC) 10.5 3.7-10.4 [facility]2014-06-24 19:20:00 Test Item Value Reference Range Interpretation Comments eGFR (test code = eGFR) 124 [facility]2014-06-24 19:20:00 Test Item Value Reference Range Interpretation Comments Calcium Lvl (test code = Calcium Lvl) 9.7 8.5-10.5 [facility]2014-06-24 19:20:00 Test Item Value Reference Range Interpretation Comments Potassium Lvl (test code = Potassium 3.5 3.5-5.1 Lvl) [facility]2014-06-24 19:20:00 Test Item Value Reference Range Interpretation Comments Sodium Lvl (test code = Sodium Lvl) 139 135-145 [facility]2014-06-24 19:20:00 Test Item Value Reference Range Interpretation Comments Creatinine Lvl (test code = Creatinine 0.6 0.5-1.4 Lvl) [facility]2014-06-24 19:20:00 Test Item Value Reference Range Interpretation Comments CO2 (test code = CO2) 21 24-32 [facility]2014-06-24 19:20:00 Test Item Value Reference Range Interpretation Comments Chloride Lvl (test code = Chloride Lvl) 108 95-109 [facility]2014-06-24 19:20:00 Test Item Value Reference Range Interpretation Comments BUN (test code = BUN) 7 7-22 [facility]2014-06-24 19:20:00 Test Item Value Reference Range Interpretation Comments Glucose Lvl (test code = Glucose Lvl) 146 70-99 [facility]2014-06-24 19:20:00 Test Item Value Reference Range Interpretation Comments AGAP (test code = AGAP) 13.5 10.0-20.0 [facility] AmericaBjwfwmpXIPBGZAQEG7418-29-60 19:20:00 Test Item Value Reference Range Interpretation Comments Lymphocytes (test code = Lymphocytes) 10.1 20.0-40.0 [facility] AmericaLijmwqrOKIREXSMRW3153-20-49 19:20:00 Test Item Value Reference Range Interpretation Comments Segs-Bands # (test code = Segs-Bands #) 9.3 1.5-8.1 [facility] AmericaHcztnrdKZYZFATXLB0713-52-00 19:20:00 Test Item Value Reference Range Interpretation Comments Lymphocytes # (test code = Lymphocytes 1.1 1.0-5.5 #) [facility] AmericaGsjcgrlVEXUFTEAFI3433-07-35 19:20:00 Test Item Value Reference Range Interpretation Comments Segs (test code = Segs) 89.0 45.0-75.0 [facility] AmericaWdzqqwwFEUIYDSWJE7347-21-74 19:20:00 Test Item Value Reference Range Interpretation Comments Basophils (test code = 0.1 See_Comment [Aut omated message] The Basophils) system which ge nerated this result tra nsmitted reference range : <=1.0. The reference r danni was not used to int erpret this result as normal/abnormal . [facility] AmericaZupssfcBRTCMTKFDO0191-25-84 19:20:00 Test Item Value Reference Range Interpretation Comments Monocytes (test code = Monocytes) 0.8 2.0-12.0 [facility] AmericaMqdntcbVRGACJMCCH6059-02-16 19:20:00 Test Item Value Reference Range Interpretation Comments Monocytes # (test code 0.1 See_Comment [Aut omated message] The = Monocytes #) system which generated this result tra nsmitted reference range : <=0.8. The reference r danni was not used to int erpret this result as normal/abnormal . [facility] AmericaYmkeqnfKSUXWWBIZN2303-70-82 19:20:00 Test Item Value Reference Range Interpretation Comments INR (test code = INR) 1.01 0.85-1.17 [facility] AmericaEhxixhsYTMUQQPKIC6259-88-38 19:20:00 Test Item Value Reference Range Interpretation Comments PT (test code = PT) 13.2 s 12.0-14.7 [facility] AmericaAfmswtdSPNHCFSOSI3284-50-16 19:20:00 Test Item Value Reference Range Interpretation Comments MCV (test code = MCV) 82.6 81.0-99.0 [facility] AmericaUcaoklnPLDBUNZQHB6182-04-55 19:20:00 Test Item Value Reference Range Interpretation Comments Hct (test code = Hct) 37.0 36.0-48.0 [facility] AmericaOjvpvybBJJXMZKBYI5966-79-81 19:20:00 Test Item Value Reference Range Interpretation Comments MCH (test code = MCH) 28.7 pg 27.0-31.0 [facility] AmericaQohbcruOUDKAUCGCM1254-33-23 19:20:00 Test Item Value Reference Range Interpretation Comments MCHC (test code = MCHC) 34.7 32.0-36.0 [facility] AmericaXzcrbrhSEIPZPEJEO1431-66-72 19:20:00 Test Item Value Reference Range Interpretation Comments RDW (test code = RDW) 13.6 11.5-14.5 [facility] AmericaPiyxgcxSKIMVTRXJS1217-21-98 19:20:00 Test Item Value Reference Range Interpretation Comments Platelet (test code = Platelet) 282 133-450 [facility] AmericaDqeovgyPTTFXZQSKC7974-76-26 19:20:00 Test Item Value Reference Range Interpretation Comments MPV (test code = MPV) 8.7 7.4-10.4 [facility] AmericaHldjizyNWOLLEBPUU1419-13-93 19:20:00 Test Item Value Reference Range Interpretation Comments Hgb (test code = Hgb) 12.8 12.0-16.0 [facility] AmericaQrntluiRRGRPXTJMQ6078-25-22 19:20:00 Test Item Value Reference Range Interpretation Comments RBC (test code = RBC) 4.47 4.20-5.40 [facility] AmericaLzsywjdHTOWDVSOKN1738-34-14 19:20:00 Test Item Value Reference Range Interpretation Comments WBC (test code = WBC) 10.5 3.7-10.4 [facility]2014-06-24 19:20:00 Test Item Value Reference Range Interpretation Comments eGFR (test code = eGFR) 124 [facility]2014-06-24 19:20:00 Test Item Value Reference Range Interpretation Comments Calcium Lvl (test code = Calcium Lvl) 9.7 8.5-10.5 [facility]2014-06-24 19:20:00 Test Item Value Reference Range Interpretation Comments Potassium Lvl (test code = Potassium 3.5 3.5-5.1 Lvl) [facility]2014-06-24 19:20:00 Test Item Value Reference Range Interpretation Comments Sodium Lvl (test code = Sodium Lvl) 139 135-145 [facility]2014-06-24 19:20:00 Test Item Value Reference Range Interpretation Comments Creatinine Lvl (test code = Creatinine 0.6 0.5-1.4 Lvl) [facility]2014-06-24 19:20:00 Test Item Value Reference Range Interpretation Comments CO2 (test code = CO2) 21 24-32 [facility]2014-06-24 19:20:00 Test Item Value Reference Range Interpretation Comments Chloride Lvl (test code = Chloride Lvl) 108 95-109 [facility]2014-06-24 19:20:00 Test Item Value Reference Range Interpretation Comments BUN (test code = BUN) 7 7-22 [facility]2014-06-24 19:20:00 Test Item Value Reference Range Interpretation Comments Glucose Lvl (test code = Glucose Lvl) 146 70-99 [facility]2014-06-24 19:20:00 Test Item Value Reference Range Interpretation Comments AGAP (test code = AGAP) 13.5 10.0-20.0 [facility] AmericaAcsjqadHPMGMYEZUE4997-84-29 19:20:00 Test Item Value Reference Range Interpretation Comments Lymphocytes (test code = Lymphocytes) 10.1 20.0-40.0 [facility] AmericaNqiwufyVSPFSRCAVW3365-76-82 19:20:00 Test Item Value Reference Range Interpretation Comments Segs-Bands # (test code = Segs-Bands #) 9.3 1.5-8.1 [facility] AmericaVbpnpmzJKOEFIOQYW5264-43-38 19:20:00 Test Item Value Reference Range Interpretation Comments Lymphocytes # (test code = Lymphocytes 1.1 1.0-5.5 #) [facility] AmericaZwrngeqXJCQMCSXGW9456-20-42 19:20:00 Test Item Value Reference Range Interpretation Comments Segs (test code = Segs) 89.0 45.0-75.0 [facility] AmericaJupevwaMHWPQYRDOP3929-73-09 19:20:00 Test Item Value Reference Range Interpretation Comments Basophils (test code = 0.1 See_Comment [Aut omated message] The Basophils) system which ge nerated this result tra nsmitted reference range : <=1.0. The reference r danni was not used to int erpret this result as normal/abnormal . [facility] AmericaMmioytxNYIDSVOURU7797-93-27 19:20:00 Test Item Value Reference Range Interpretation Comments Monocytes (test code = Monocytes) 0.8 2.0-12.0 [facility] AmericaDuifpyuBEURJWJPKA5570-25-10 19:20:00 Test Item Value Reference Range Interpretation Comments Monocytes # (test code 0.1 See_Comment [Aut omated message] The = Monocytes #) system which generated this result tra nsmitted reference range : <=0.8. The reference r danni was not used to int erpret this result as normal/abnormal . [facility] AmericaNcpyltfPYFAGVPJFE0379-40-32 19:20:00 Test Item Value Reference Range Interpretation Comments INR (test code = INR) 1.01 0.85-1.17 [facility] AmericaDaetavhATAMYPMINF7086-59-67 19:20:00 Test Item Value Reference Range Interpretation Comments PT (test code = PT) 13.2 s 12.0-14.7 [facility] AmericaIedksjeEWAFCWNCEO6320-34-47 19:20:00 Test Item Value Reference Range Interpretation Comments MCV (test code = MCV) 82.6 81.0-99.0 [facility] AmericaQijbnbcESLVPEFQZQ8737-23-96 19:20:00 Test Item Value Reference Range Interpretation Comments Hct (test code = Hct) 37.0 36.0-48.0 [facility] AmericaJzmheqkOZVGUCBAXY0937-76-57 19:20:00 Test Item Value Reference Range Interpretation Comments MCH (test code = MCH) 28.7 pg 27.0-31.0 [facility] AmericaPglmxqqVMRXDDQWHY9764-34-87 19:20:00 Test Item Value Reference Range Interpretation Comments MCHC (test code = MCHC) 34.7 32.0-36.0 [facility] AmericaVewlrtkAXFOLHWCOM2099-91-67 19:20:00 Test Item Value Reference Range Interpretation Comments RDW (test code = RDW) 13.6 11.5-14.5 [facility] AmericaCocvbrwFGHMJMMHTV0200-62-97 19:20:00 Test Item Value Reference Range Interpretation Comments Platelet (test code = Platelet) 282 133-450 [facility] AmericaBvmrizcQTEZJDGMSB9023-18-42 19:20:00 Test Item Value Reference Range Interpretation Comments MPV (test code = MPV) 8.7 7.4-10.4 [facility] AmericaBzavnhaNNVVPWYTQE4579-60-14 19:20:00 Test Item Value Reference Range Interpretation Comments Hgb (test code = Hgb) 12.8 12.0-16.0 [facility] AmericaPdvfvbjBGSJLHTQLR1697-37-72 19:20:00 Test Item Value Reference Range Interpretation Comments RBC (test code = RBC) 4.47 4.20-5.40 [facility] AmericaAareqxhSZBDXZHZSP3923-81-85 19:20:00 Test Item Value Reference Range Interpretation Comments WBC (test code = WBC) 10.5 3.7-10.4 [facility]2014-06-24 19:20:00 Test Item Value Reference Range Interpretation Comments eGFR (test code = eGFR) 124 [facility]2014-06-24 19:20:00 Test Item Value Reference Range Interpretation Comments Calcium Lvl (test code = Calcium Lvl) 9.7 8.5-10.5 [facility]2014-06-24 19:20:00 Test Item Value Reference Range Interpretation Comments Potassium Lvl (test code = Potassium 3.5 3.5-5.1 Lvl) [facility]2014-06-24 19:20:00 Test Item Value Reference Range Interpretation Comments Sodium Lvl (test code = Sodium Lvl) 139 135-145 [facility]2014-06-24 19:20:00 Test Item Value Reference Range Interpretation Comments Creatinine Lvl (test code = Creatinine 0.6 0.5-1.4 Lvl) [facility]2014-06-24 19:20:00 Test Item Value Reference Range Interpretation Comments CO2 (test code = CO2) 21 24-32 [facility]2014-06-24 19:20:00 Test Item Value Reference Range Interpretation Comments Chloride Lvl (test code = Chloride Lvl) 108 95-109 [facility]2014-06-24 19:20:00 Test Item Value Reference Range Interpretation Comments BUN (test code = BUN) 7 7-22 [facility]2014-06-24 19:20:00 Test Item Value Reference Range Interpretation Comments Glucose Lvl (test code = Glucose Lvl) 146 70-99 [facility]2014-06-24 19:20:00 Test Item Value Reference Range Interpretation Comments AGAP (test code = AGAP) 13.5 10.0-20.0 [facility] AmericaQhzvleqRIQHLQNYWO0077-44-72 19:20:00 Test Item Value Reference Range Interpretation Comments Lymphocytes (test code = Lymphocytes) 10.1 20.0-40.0 [facility] AmericaFxxhuuySTKLEOTMJE2319-91-39 19:20:00 Test Item Value Reference Range Interpretation Comments Segs-Bands # (test code = Segs-Bands #) 9.3 1.5-8.1 [facility] AmericaEoqkquhXDHHBLEHZG0357-52-24 19:20:00 Test Item Value Reference Range Interpretation Comments Lymphocytes # (test code = Lymphocytes 1.1 1.0-5.5 #) [facility] AmericaVpeikxiESFYIFBBDY2901-41-36 19:20:00 Test Item Value Reference Range Interpretation Comments Segs (test code = Segs) 89.0 45.0-75.0 [facility] AmericaUivjngoBYYTTJJNBU4191-99-01 19:20:00 Test Item Value Reference Range Interpretation Comments Basophils (test code = 0.1 See_Comment [Aut omated message] The Basophils) system which ge nerated this result tra nsmitted reference range : <=1.0. The reference r danni was not used to int erpret this result as normal/abnormal . [facility] AmericaCycwqprQYTQGCSZJW2341-01-49 19:20:00 Test Item Value Reference Range Interpretation Comments Monocytes (test code = Monocytes) 0.8 2.0-12.0 [facility] AmericaNtesclhBUBGOIGURJ5980-63-63 19:20:00 Test Item Value Reference Range Interpretation Comments Monocytes # (test code 0.1 See_Comment [Aut omated message] The = Monocytes #) system which generated this result tra nsmitted reference range : <=0.8. The reference r danni was not used to int erpret this result as normal/abnormal . [facility] AmericaRskrsawNEZYNMHIXM7841-94-99 19:20:00 Test Item Value Reference Range Interpretation Comments INR (test code = INR) 1.01 0.85-1.17 [facility] AmericaQmmqzwnKJWHXCODIS2052-45-78 19:20:00 Test Item Value Reference Range Interpretation Comments PT (test code = PT) 13.2 s 12.0-14.7 [facility] AmericaGimklijFAKADHMEAF0104-31-78 19:20:00 Test Item Value Reference Range Interpretation Comments MCV (test code = MCV) 82.6 81.0-99.0 [facility] AmericaKrnakqmPHBMCRYKPE2769-18-50 19:20:00 Test Item Value Reference Range Interpretation Comments Hct (test code = Hct) 37.0 36.0-48.0 [facility] AmericaFidulzaJFUXLTFIRI3040-35-86 19:20:00 Test Item Value Reference Range Interpretation Comments MCH (test code = MCH) 28.7 pg 27.0-31.0 [facility] AmericaRwzjtstUIRZTXHJPD8456-90-29 19:20:00 Test Item Value Reference Range Interpretation Comments MCHC (test code = MCHC) 34.7 32.0-36.0 [facility] AmericaPaeujmdVLVNGWMWSO6709-56-41 19:20:00 Test Item Value Reference Range Interpretation Comments RDW (test code = RDW) 13.6 11.5-14.5 [facility] AmericaRfpbjtiMZXINQHWQI0579-37-47 19:20:00 Test Item Value Reference Range Interpretation Comments Platelet (test code = Platelet) 282 133-450 [facility] AmericaYvzfobxPPGTHNUBPS4863-43-67 19:20:00 Test Item Value Reference Range Interpretation Comments MPV (test code = MPV) 8.7 7.4-10.4 [facility] AmericaPhezcauRBTOEZYTZH3714-09-62 19:20:00 Test Item Value Reference Range Interpretation Comments Hgb (test code = Hgb) 12.8 12.0-16.0 [facility] AmericaQeplauuVDUHDYITUN4579-76-79 19:20:00 Test Item Value Reference Range Interpretation Comments RBC (test code = RBC) 4.47 4.20-5.40 [facility] AmericaXjqvkiwYVWRPOUXSY7592-07-40 19:20:00 Test Item Value Reference Range Interpretation Comments WBC (test code = WBC) 10.5 3.7-10.4 [facility] 19:20:00 Test Item Value Reference Range Interpretation Comments eGFR (test code = eGFR) 124 [facility]2014-06-24 19:20:00 Test Item Value Reference Range Interpretation Comments Calcium Lvl (test code = Calcium Lvl) 9.7 8.5-10.5 [facility]2014-06-24 19:20:00 Test Item Value Reference Range Interpretation Comments Potassium Lvl (test code = Potassium 3.5 3.5-5.1 Lvl) [facility]2014-06-24 19:20:00 Test Item Value Reference Range Interpretation Comments Sodium Lvl (test code = Sodium Lvl) 139 135-145 [facility]2014-06-24 19:20:00 Test Item Value Reference Range Interpretation Comments Creatinine Lvl (test code = Creatinine 0.6 0.5-1.4 Lvl) [facility]2014-06-24 19:20:00 Test Item Value Reference Range Interpretation Comments CO2 (test code = CO2) 21 24-32 [facility]2014-06-24 19:20:00 Test Item Value Reference Range Interpretation Comments Chloride Lvl (test code = Chloride Lvl) 108 95-109 [facility]2014-06-24 19:20:00 Test Item Value Reference Range Interpretation Comments BUN (test code = BUN) 7 7-22 [facility]2014-06-24 19:20:00 Test Item Value Reference Range Interpretation Comments Glucose Lvl (test code = Glucose Lvl) 146 70-99 [facility]2014-06-24 19:20:00 Test Item Value Reference Range Interpretation Comments AGAP (test code = AGAP) 13.5 10.0-20.0 [facility] AmericaXkqwfeaRCLMHZHXYH8052-05-06 19:20:00 Test Item Value Reference Range Interpretation Comments Lymphocytes (test code = Lymphocytes) 10.1 20.0-40.0 [facility] AmericaOguodpsCWMCPLHZPI1034-98-05 19:20:00 Test Item Value Reference Range Interpretation Comments Segs-Bands # (test code = Segs-Bands #) 9.3 1.5-8.1 [facility] AmericaWqvemmfFJDYRWYCYL2902-89-44 19:20:00 Test Item Value Reference Range Interpretation Comments Lymphocytes # (test code = Lymphocytes 1.1 1.0-5.5 #) [facility] AmericaSrhghdiXSSANIANDJ1707-33-21 19:20:00 Test Item Value Reference Range Interpretation Comments Segs (test code = Segs) 89.0 45.0-75.0 [facility] AmericaDbnocazTNJQZHISYG6311-41-04 19:20:00 Test Item Value Reference Range Interpretation Comments Basophils (test code = 0.1 See_Comment [Aut omated message] The Basophils) system which ge nerated this result tra nsmitted reference range : <=1.0. The reference r danni was not used to int erpret this result as normal/abnormal . [facility] AmericaOzjztaxTKOBJTGKXJ5012-18-15 19:20:00 Test Item Value Reference Range Interpretation Comments Monocytes (test code = Monocytes) 0.8 2.0-12.0 [facility] AmericaMtasaqqFVZBKPUGNQ8264-81-23 19:20:00 Test Item Value Reference Range Interpretation Comments Monocytes # (test code 0.1 See_Comment [Aut omated message] The = Monocytes #) system which generated this result tra nsmitted reference range : <=0.8. The reference r danni was not used to int erpret this result as normal/abnormal . [facility] AmericaTibfocqDSXDQQTURW5693-29-94 19:20:00 Test Item Value Reference Range Interpretation Comments INR (test code = INR) 1.01 0.85-1.17 [facility] AmericaCnlikfgSMXKOHMCKZ3432-74-65 19:20:00 Test Item Value Reference Range Interpretation Comments PT (test code = PT) 13.2 s 12.0-14.7 [facility] AmericaOhhisycLKDVLBYJGL2361-62-60 19:20:00 Test Item Value Reference Range Interpretation Comments MCV (test code = MCV) 82.6 81.0-99.0 [facility] AmericaRotqakuUVKTRFIYIF9165-07-31 19:20:00 Test Item Value Reference Range Interpretation Comments Hct (test code = Hct) 37.0 36.0-48.0 [facility] AmericaQsnokuuOINRHUWHKS5218-98-09 19:20:00 Test Item Value Reference Range Interpretation Comments MCH (test code = MCH) 28.7 pg 27.0-31.0 [facility] AmericaYrgbhotNYOOWFANGW9811-75-04 19:20:00 Test Item Value Reference Range Interpretation Comments MCHC (test code = MCHC) 34.7 32.0-36.0 [facility] AmericaOkpeitkQORDRQTKRQ2760-09-90 19:20:00 Test Item Value Reference Range Interpretation Comments RDW (test code = RDW) 13.6 11.5-14.5 [facility] AmericaFgsktflHSYGPXAYMT8746-62-97 19:20:00 Test Item Value Reference Range Interpretation Comments Platelet (test code = Platelet) 282 133-450 [facility] AmericaTfbojpeIFZKUVNNPP8785-27-94 19:20:00 Test Item Value Reference Range Interpretation Comments MPV (test code = MPV) 8.7 7.4-10.4 [facility] AmericaWfinvcyNWPOTQUJNM9568-28-94 19:20:00 Test Item Value Reference Range Interpretation Comments Hgb (test code = Hgb) 12.8 12.0-16.0 [facility] AmericaYuqiwleGYWJODXSGM8699-71-36 19:20:00 Test Item Value Reference Range Interpretation Comments RBC (test code = RBC) 4.47 4.20-5.40 [facility] AmericaXhhkbunIQFIFMNPAH8257-55-53 19:20:00 Test Item Value Reference Range Interpretation Comments WBC (test code = WBC) 10.5 3.7-10.4 [facility]2014-06-24 19:20:00 Test Item Value Reference Range Interpretation Comments eGFR (test code = eGFR) 124 [facility]2014-06-24 19:20:00 Test Item Value Reference Range Interpretation Comments Calcium Lvl (test code = Calcium Lvl) 9.7 8.5-10.5 [facility]2014-06-24 19:20:00 Test Item Value Reference Range Interpretation Comments Potassium Lvl (test code = Potassium 3.5 3.5-5.1 Lvl) [facility]2014-06-24 19:20:00 Test Item Value Reference Range Interpretation Comments Sodium Lvl (test code = Sodium Lvl) 139 135-145 [facility]2014-06-24 19:20:00 Test Item Value Reference Range Interpretation Comments Creatinine Lvl (test code = Creatinine 0.6 0.5-1.4 Lvl) [facility]2014-06-24 19:20:00 Test Item Value Reference Range Interpretation Comments CO2 (test code = CO2) 21 24-32 [facility]2014-06-24 19:20:00 Test Item Value Reference Range Interpretation Comments Chloride Lvl (test code = Chloride Lvl) 108 95-109 [facility]2014-06-24 19:20:00 Test Item Value Reference Range Interpretation Comments BUN (test code = BUN) 7 7-22 [facility]2014-06-24 19:20:00 Test Item Value Reference Range Interpretation Comments Glucose Lvl (test code = Glucose Lvl) 146 70-99 [facility] [facility]2014-06-24 19:20:00 Test Item Value Reference Range Interpretation Comments AGAP (test code = AGAP) 13.5 10.0-20.0 [facility] AmericaSjoudhxHBUCMTHSOG6023-57-37 19:20:00 Test Item Value Reference Range Interpretation Comments Lymphocytes (test code = Lymphocytes) 10.1 20.0-40.0 [facility] AmericaNneuevyALUQTSHYZI7337-70-32 19:20:00 Test Item Value Reference Range Interpretation Comments Segs-Bands # (test code = Segs-Bands #) 9.3 1.5-8.1 [facility] AmericaJsxjfieIICBDLUYCK7244-12-59 19:20:00 Test Item Value Reference Range Interpretation Comments Lymphocytes # (test code = Lymphocytes 1.1 1.0-5.5 #) [facility] AmericaJrwiognFMPZEEJIEU6826-45-39 19:20:00 Test Item Value Reference Range Interpretation Comments Segs (test code = Segs) 89.0 45.0-75.0 [facility] AmericaEagsqtdNMGPNHADVR3180-54-87 19:20:00 Test Item Value Reference Range Interpretation Comments Basophils (test code = 0.1 See_Comment [Aut omated message] The Basophils) system which ge nerated this result tra nsmitted reference range : <=1.0. The reference r danni was not used to int erpret this result as normal/abnormal . [facility] AmericaOdmlpylQDXSWVUZTF8356-91-62 19:20:00 Test Item Value Reference Range Interpretation Comments Monocytes (test code = Monocytes) 0.8 2.0-12.0 [facility] AmericaCjvxvbnRGXWNSDHOF4284-09-99 19:20:00 Test Item Value Reference Range Interpretation Comments Monocytes # (test code 0.1 See_Comment [Aut omated message] The = Monocytes #) system which generated this result tra nsmitted reference range : <=0.8. The reference r danni was not used to int erpret this result as normal/abnormal . [facility] AmericaVittsjgVMXSVUZOMV8158-59-77 19:20:00 Test Item Value Reference Range Interpretation Comments INR (test code = INR) 1.01 0.85-1.17 [facility] AmericaXmgrhfnPTPZPCCKST3381-38-57 19:20:00 Test Item Value Reference Range Interpretation Comments PT (test code = PT) 13.2 s 12.0-14.7 [facility] AmericaFlivejmAHZILWTAAN7416-50-45 19:20:00 Test Item Value Reference Range Interpretation Comments MCV (test code = MCV) 82.6 81.0-99.0 [facility] AmericaKdguzktDRISMKINBM1769-78-84 19:20:00 Test Item Value Reference Range Interpretation Comments Hct (test code = Hct) 37.0 36.0-48.0 [facility] AmericaLxnvdkoHLMDIKRWHN3987-49-65 19:20:00 Test Item Value Reference Range Interpretation Comments MCH (test code = MCH) 28.7 pg 27.0-31.0 [facility] AmericaHvhyworFMUCKLJUJV8827-17-37 19:20:00 Test Item Value Reference Range Interpretation Comments MCHC (test code = MCHC) 34.7 32.0-36.0 [facility] AmericaHckudfaIDRFUBVNBN4309-25-65 19:20:00 Test Item Value Reference Range Interpretation Comments RDW (test code = RDW) 13.6 11.5-14.5 [facility] AmericaTmgjpgrPKOIVQLKEW7428-87-48 19:20:00 Test Item Value Reference Range Interpretation Comments Platelet (test code = Platelet) 282 133-450 [facility] AmericaCqtodklXTKBSYYONY6769-38-88 19:20:00 Test Item Value Reference Range Interpretation Comments MPV (test code = MPV) 8.7 7.4-10.4 [facility] AmericaVdqrbhgWEVCXVOMZD3588-32-85 19:20:00 Test Item Value Reference Range Interpretation Comments Hgb (test code = Hgb) 12.8 12.0-16.0 [facility] AmericaGslykcoBNNPYYHSVP4874-89-41 19:20:00 Test Item Value Reference Range Interpretation Comments RBC (test code = RBC) 4.47 4.20-5.40 [facility] AmericaZrivmotMXAGPMYWZX7949-59-27 19:20:00 Test Item Value Reference Range Interpretation Comments WBC (test code = WBC) 10.5 3.7-10.4 [facility]2014-06-24 19:20:00 Test Item Value Reference Range Interpretation Comments eGFR (test code = eGFR) 124 [facility] OSEGQ8536-23-14 19:20:00 Test Item Value Reference Range Interpretation Comments Calcium Lvl (test code = Calcium Lvl) 9.7 8.5-10.5 [facility]2014-06-24 19:20:00 Test Item Value Reference Range Interpretation Comments Potassium Lvl (test code = Potassium 3.5 3.5-5.1 Lvl) [facility]2014-06-24 19:20:00 Test Item Value Reference Range Interpretation Comments Sodium Lvl (test code = Sodium Lvl) 139 135-145 [facility]2014-06-24 19:20:00 Test Item Value Reference Range Interpretation Comments Creatinine Lvl (test code = Creatinine 0.6 0.5-1.4 Lvl) [facility]2014-06-24 19:20:00 Test Item Value Reference Range Interpretation Comments CO2 (test code = CO2) 21 24-32 [facility]2014-06-24 19:20:00 Test Item Value Reference Range Interpretation Comments Chloride Lvl (test code = Chloride Lvl) 108 95-109 [facility]2014-06-24 19:20:00 Test Item Value Reference Range Interpretation Comments BUN (test code = BUN) 7 7-22 [facility]2014-06-24 19:20:00 Test Item Value Reference Range Interpretation Comments Glucose Lvl (test code = Glucose Lvl) 146 70-99 [facility]2014-06-24 19:20:00 Test Item Value Reference Range Interpretation Comments AGAP (test code = AGAP) 13.5 10.0-20.0 [facility] AmericaLfruealYHBDQRFPRQ4255-41-66 19:20:00 Test Item Value Reference Range Interpretation Comments Lymphocytes (test code = Lymphocytes) 10.1 20.0-40.0 [facility] AmericaGwzumliONCRPMTJGG1356-85-14 19:20:00 Test Item Value Reference Range Interpretation Comments Segs-Bands # (test code = Segs-Bands #) 9.3 1.5-8.1 [facility] AmericaBwaiwrrCURXVLMMCD1620-43-83 19:20:00 Test Item Value Reference Range Interpretation Comments Lymphocytes # (test code = Lymphocytes 1.1 1.0-5.5 #) [facility] AmericaEdfnghaJSTQKCKHEK6697-72-33 19:20:00 Test Item Value Reference Range Interpretation Comments Segs (test code = Segs) 89.0 45.0-75.0 [facility] AmericaEatvxfaGEUZOVXPHX1865-92-50 19:20:00 Test Item Value Reference Range Interpretation Comments Basophils (test code = 0.1 See_Comment [Aut omated message] The Basophils) system which ge nerated this result tra nsmitted reference range : <=1.0. The reference r danni was not used to int erpret this result as normal/abnormal . [facility] AmericaKblfgblFMFDPZVWGV1345-23-44 19:20:00 Test Item Value Reference Range Interpretation Comments Monocytes (test code = Monocytes) 0.8 2.0-12.0 [facility] AmericaSwxdalcWSKTVLRUPK2296-79-48 19:20:00 Test Item Value Reference Range Interpretation Comments Monocytes # (test code 0.1 See_Comment [Aut omated message] The = Monocytes #) system which generated this result tra nsmitted reference range : <=0.8. The reference r danni was not used to int erpret this result as normal/abnormal . [facility] AmericaRshuusrPTDTTYSGXL4790-16-76 19:20:00 Test Item Value Reference Range Interpretation Comments INR (test code = INR) 1.01 0.85-1.17 [facility] AmericaNisffnuHAQTDNKJMT4995-40-85 19:20:00 Test Item Value Reference Range Interpretation Comments PT (test code = PT) 13.2 s 12.0-14.7 [facility] AmericaHyjvmgdELRBOADJQP4662-06-75 19:20:00 Test Item Value Reference Range Interpretation Comments MCV (test code = MCV) 82.6 81.0-99.0 [facility] AmericaZtixabjHYNBLCADSX7027-27-17 19:20:00 Test Item Value Reference Range Interpretation Comments Hct (test code = Hct) 37.0 36.0-48.0 [facility] AmericaHdptjmaBYSDEVRWBN8009-48-65 19:20:00 Test Item Value Reference Range Interpretation Comments MCH (test code = MCH) 28.7 pg 27.0-31.0 [facility] AmericaCaafbpcKITPTKSOYC0597-46-78 19:20:00 Test Item Value Reference Range Interpretation Comments MCHC (test code = MCHC) 34.7 32.0-36.0 [facility] AmericaDxpcefnLUBDMMLDPK9508-79-94 19:20:00 Test Item Value Reference Range Interpretation Comments RDW (test code = RDW) 13.6 11.5-14.5 [facility] AmericaNejqyziLKKHTSKFFV0132-02-51 19:20:00 Test Item Value Reference Range Interpretation Comments Platelet (test code = Platelet) 282 133-450 [facility] AmericaHtudwctQWYINQJDTY0622-22-38 19:20:00 Test Item Value Reference Range Interpretation Comments MPV (test code = MPV) 8.7 7.4-10.4 [facility] AmericaTyejrliIQIRNOWWLN0845-52-39 19:20:00 Test Item Value Reference Range Interpretation Comments Hgb (test code = Hgb) 12.8 12.0-16.0 [facility] AmericaAztpxltCKISDTOARZ0798-45-23 19:20:00 Test Item Value Reference Range Interpretation Comments RBC (test code = RBC) 4.47 4.20-5.40 [facility] AmericaRcrumxhRFYMPZRRVF0443-17-77 19:20:00 Test Item Value Reference Range Interpretation Comments WBC (test code = WBC) 10.5 3.7-10.4 [facility]2014-06-24 19:20:00 Test Item Value Reference Range Interpretation Comments eGFR (test code = eGFR) 124 [facility]2014-06-24 19:20:00 Test Item Value Reference Range Interpretation Comments Calcium Lvl (test code = Calcium Lvl) 9.7 8.5-10.5 [facility]2014-06-24 19:20:00 Test Item Value Reference Range Interpretation Comments Potassium Lvl (test code = Potassium 3.5 3.5-5.1 Lvl) [facility]2014-06-24 19:20:00 Test Item Value Reference Range Interpretation Comments Sodium Lvl (test code = Sodium Lvl) 139 135-145 [facility]2014-06-24 19:20:00 Test Item Value Reference Range Interpretation Comments Creatinine Lvl (test code = Creatinine 0.6 0.5-1.4 Lvl) [facility]2014-06-24 19:20:00 Test Item Value Reference Range Interpretation Comments CO2 (test code = CO2) - [facility]2014-06-24 19:20:00 Test Item Value Reference Range Interpretation Comments Chloride Lvl (test code = Chloride Lvl) 108 95-109 [facility]2014-06-24 19:20:00 Test Item Value Reference Range Interpretation Comments BUN (test code = BUN) 7 7-22 [facility]2014-06-24 19:20:00 Test Item Value Reference Range Interpretation Comments Glucose Lvl (test code = Glucose Lvl) 146 70-99 [facility]2014-06-24 19:20:00 Test Item Value Reference Range Interpretation Comments AGAP (test code = AGAP) 13.5 10.0-20.0 [facility] AmericaHuyaljdRNCFJMHIRN4445-15-99 19:20:00 Test Item Value Reference Range Interpretation Comments Lymphocytes (test code = Lymphocytes) 10.1 20.0-40.0 [facility] AmericaSsmuovjWAKCOMHPTB1572-18-98 19:20:00 Test Item Value Reference Range Interpretation Comments Segs-Bands # (test code = Segs-Bands #) 9.3 1.5-8.1 [facility] AmericaGhinxksPKLBJTCVCT2020-22-39 19:20:00 Test Item Value Reference Range Interpretation Comments Lymphocytes # (test code = Lymphocytes 1.1 1.0-5.5 #) [facility] AmericaIclutehHWFVGXUPPU8615-47-65 19:20:00 Test Item Value Reference Range Interpretation Comments Segs (test code = Segs) 89.0 45.0-75.0 [facility] AmericaFalepyoYZIEGUJYAB2279-21-75 19:20:00 Test Item Value Reference Range Interpretation Comments Basophils (test code = 0.1 See_Comment [Aut omated message] The Basophils) system which ge nerated this result tra nsmitted reference range : <=1.0. The reference r danni was not used to int erpret this result as normal/abnormal . [facility] AmericaUkfhhzoCBYXJWVMSI7758-90-98 19:20:00 Test Item Value Reference Range Interpretation Comments Monocytes (test code = Monocytes) 0.8 2.0-12.0 [facility] AmericaXvamusaKHNNMQQJAZ4621-72-43 19:20:00 Test Item Value Reference Range Interpretation Comments Monocytes # (test code 0.1 See_Comment [Aut omated message] The = Monocytes #) system which generated this result tra nsmitted reference range : <=0.8. The reference r danni was not used to int erpret this result as normal/abnormal . [facility] AmericaXaxwsoqGFCIGQCGXC6176-99-05 19:20:00 Test Item Value Reference Range Interpretation Comments INR (test code = INR) 1.01 0.85-1.17 [facility] AmericaMkqencqCGLDVTSNHX6718-18-89 19:20:00 Test Item Value Reference Range Interpretation Comments PT (test code = PT) 13.2 s 12.0-14.7 [facility] AmericaHbxfoinJIGJQSOSGM2179-30-98 19:20:00 Test Item Value Reference Range Interpretation Comments MCV (test code = MCV) 82.6 81.0-99.0 [facility] AmericaIjtspzvCUMCVEOYVC0136-19-66 19:20:00 Test Item Value Reference Range Interpretation Comments Hct (test code = Hct) 37.0 36.0-48.0 [facility] AmericaWbxpkuyUZAYBCWRML4160-02-12 19:20:00 Test Item Value Reference Range Interpretation Comments MCH (test code = MCH) 28.7 pg 27.0-31.0 [facility] AmericaJrfzjvjFMJUPBQHHG4381-28-26 19:20:00 Test Item Value Reference Range Interpretation Comments MCHC (test code = MCHC) 34.7 32.0-36.0 [facility] AmericaUwzobsuBVJHDZJZWE3946-02-68 19:20:00 Test Item Value Reference Range Interpretation Comments RDW (test code = RDW) 13.6 11.5-14.5 [facility] AmericaHqnynrgOWUXKXIYBE4891-45-70 19:20:00 Test Item Value Reference Range Interpretation Comments Platelet (test code = Platelet) 282 133-450 [facility] AmericaHqbevexHFQPMHDPUZ4145-26-26 19:20:00 Test Item Value Reference Range Interpretation Comments MPV (test code = MPV) 8.7 7.4-10.4 [facility] AmericaZdrbxcsNQTXKJERHR8484-76-36 19:20:00 Test Item Value Reference Range Interpretation Comments Hgb (test code = Hgb) 12.8 12.0-16.0 [facility] AmericaTqkcktlXVYXGRDASG6719-17-76 19:20:00 Test Item Value Reference Range Interpretation Comments RBC (test code = RBC) 4.47 4.20-5.40 [facility] AmericaSwdimkfBFSHRPDSCC3084-37-13 19:20:00 Test Item Value Reference Range Interpretation Comments WBC (test code = WBC) 10.5 3.7-10.4 [facility]
[2023-05-06 09:36] LABS: Specific Gravity < 1.005 (1.005-1.030)
[2023-05-06 09:38] LABS: Specific Gravity < 1.005 (1.005-1.030); Urine Bacteria <20 /HPF (<20); Urine Bilirubin NEGATIVE (Negative); Urine Blood Negative (Negative); Urine Clarity Clear (Clear); Urine Color Colorless (Yellow); Urine Glucose NEGATIVE (Negative); Urine Protein NEGATIVE (Negative); Urine Urobilinogen Normal (Normal)
--- NOTE | 2023-05-06 09:43 | EDPHYS ---
Physician Documentation [facility] Name: Carmelina Alicia Age: 27 yrs Sex: Female : 1995 Arrival Date: 05/06/2023 Time: 08:54 Bed 6 Private MD: ED Physician Vinayak Eastman HPI: 05/06 09:26 This 27 yrs old Female presents to ER via Ambulatory with complaints of jh7 Foreign body In Vagina, Urinary Problem. 09:26 The patient presents with urinary symptoms, dysuria, frequency, urgency, worm found in jh7 urine. Onset: The symptoms/episode began/occurred Urinary symptoms have been intermittent for the past 10 days and worms were found in the urine this morning. Associated signs and symptoms: Pertinent negatives: constipation, dyspareunia, fever, vaginal bleeding, vaginal discharge, vomiting. The patient is sexually active. Patient reports that she went to the beach this Friday but did not get into the water.. 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 Historical: - Allergies: 09:17 Morphine; jl7 09:17 Sulfa (Sulfonamide Antibiotics); jl7 09:17 Toradol; jl7 09:17 Robitussin ER; jl7 - Home Meds: 09:17 levothyroxine 37.5 mcg capsule 2 caps [Active]; jl7 - PMHx: 09:17 Hydrocephalus; Hypertensive disorder; Hypothyroidism; jl7 - Immunization history:: Adult Immunizations unknown. - Social history:: Smoking status: Patient denies any tobacco usage or history of. ROS: 09:26 Constitutional: Negative for fever, chills, and weight loss, Eyes: Negative for injury, jh7 pain, redness, and discharge, Neck: Negative for injury, pain, and swelling, Cardiovascular: Negative for chest pain, palpitations, and edema, Respiratory: Negative for shortness of breath, cough, wheezing, and pleuritic chest pain, Abdomen/GI: Negative for abdominal pain, nausea, vomiting, diarrhea, and constipation, Back: Negative for injury and pain, MS/Extremity: Negative for injury and deformity, Skin: Negative for injury, rash, and discoloration, Neuro: Negative for headache, weakness, numbness, tingling, and seizure. 09:26 : Positive for urinary symptoms, burning with urination, Negative for vaginal discharge, vaginal itching. 09:26 All other systems are negative. Exam: 09:26 Constitutional: This is a well developed, well nourished patient who is awake, alert, jh7 and in no acute distress. Head/Face: Normocephalic, atraumatic. Eyes: Pupils equal round and reactive to light, extra-ocular motions intact. Lids and lashes normal. Conjunctiva and sclera are non-icteric and not injected. Cornea within normal limits. Periorbital areas with no swelling, redness, or edema. Neck: Trachea midline, no thyromegaly or masses palpated, and no cervical lymphadenopathy. Supple, full range of motion without nuchal rigidity, or vertebral point tenderness. No Meningismus. Cardiovascular: Regular rate and rhythm with a normal S1 and S2. No gallops, murmurs, or rubs. Normal PMI, no JVD. No pulse deficits. Respiratory: Lungs have equal breath sounds bilaterally, clear to auscultation and percussion. No rales, rhonchi or wheezes noted. No increased work of breathing, no retractions or nasal flaring. Abdomen/GI: Soft, non-tender, with normal bowel sounds. No distension or tympany. No guarding or rebound. No evidence of tenderness throughout. Skin: Warm, dry with normal turgor. Normal color with no rashes, no lesions, and no evidence of cellulitis. MS/ Extremity: Pulses equal, no cyanosis. Neurovascular intact. Full, normal range of motion. Neuro: Awake and alert, GCS 15, oriented to person, place, time, and situation. Motor strength 5/5 in all extremities. Sensory grossly intact. Normal gait. 09:37 : Pelvic Exam: External exam: is normal, Speculum exam: normal findings, bimanual 7 exam reveals normal findings, discharge, white, the nurse was present for the exam, Sexual behavior: the patient is sexually active, and reports a single partner, method of control is IUD. Vital Signs: 09:15 BP 130 / 85; Pulse 78; Resp 17; Temp 97.9; Pulse Ox 100% ; Weight 79.38 kg; Height 5 jl7 ft. 5 in. ; Pain 4/10; 09:52 BP 117 / 81; Pulse 67; Resp 16; Pulse Ox 99% on R/A; nj1 09:15 Body Mass Index 29.12 (79.38 kg, 165.1 cm) [facility] 09:15 Pain Scale: Adult jl7 MDM: 09:[address] [facility] 09:44 Differential diagnosis: urinary tract infection, vaginosis. Data reviewed: vital signs, [facility] nurses notes, lab test result(s), urinalysis. Care significantly affected by the following chronic conditions: Hypertension. Counseling: I had a detailed discussion with the patient and/or guardian regarding: the historical points, exam findings, and any diagnostic results supporting the discharge/admit diagnosis, the need for outpatient follow up, an OB/Gyne specialist, to return to the emergency department if symptoms worsen or persist or if there are any questions or concerns that arise at home. ED course: The patient stated that she only noticed the worms once and it was at a toilet at work. Informed her that we saw no worms in the urine or on the pelvic exam. The worm the patient brought in was small and black and we informed her that this was likely either already in the toilet or under the seat. If she develops any new concerning symptoms, she may return to the ER for further eval. patient reports multiple UTIs after getting her IUD a year ago. 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 05/06 09:11 Order name: Urinalysis W/Microscopic; Complete Time: 09:39 [facility] 05/06 09:11 Order name: Test, Urine; Complete Time: 09:42 [facility] 05/06 09:11 Order name: Pelvic Exam Setup; Complete Time: 09:31 [facility] Administered Medications: No medications were administered Disposition: 10:45 Co-signature as Attending Physician, Vinayak Eastman MD I reviewed the patient's care rn provided by the Advanced Practice Provider and agree with the diagnosis and treatment plan. Disposition Summary: 05/06/23 09:43 Discharge Ordered Location: Home [facility] Problem: [facility] Symptoms: are unchanged [facility] Condition: Stable [facility] Diagnosis - Dysuria [facility] Followup: [facility] - With: Private Physician - When: 2 - 3 days - Reason: Recheck today's complaints Discharge Instructions: - Discharge Summary Sheet [facility] - Dysuria [facility] Forms: - Medication Reconciliation Form 7 - Thank You Letter jh7 - Antibiotic Education [facility] - Work release form nj1 Prescriptions: - Macrobid 100 mg Oral Capsule - take 1 capsule by ORAL route every 12 hours for 7 days; 14 capsule; Refills: 0, jh7 Product Selection Permitted Signatures: Dispatcher [employer] Vinayak Jeter MD MD rn Eleno Lozano RN RN jl7 Sonam Guthrie FNP [place] [id number] Corrections: (The following items were deleted from the chart) 09:49 09:16 Taryn ordered. [place] [id number]
--- NOTE | 2023-05-06 09:43 | ER ---
Nurse's Notes [facility] Name: Carmelina Alicia Age: 27 yrs Sex: Female : 1995 Arrival Date: 05/06/2023 Time: 08:54 Bed 6 Private MD: Diagnosis: Dysuria Presentation: 05/06 09:15 Chief complaint: Patient states: Worms in urine this morning; intermittent burning with jl7 urination x 2 weeks. Coronavirus screen: At this time, the client does not indicate any symptoms associated with coronavirus-19. Ebola Screen: No symptoms or risks identified at this time. Initial Sepsis Screen: Does the patient meet any 2 criteria? No. Patient's initial sepsis screen is negative. Does the patient have a suspected source of infection? No. Patient's initial sepsis screen is negative. Risk Assessment: Do you want to hurt yourself or someone else? Patient reports no desire to harm self or others. Onset of symptoms is unknown. Care prior to arrival: None. 09:15 Method Of Arrival: Ambulatory [facility] 09:15 Acuity: ENIO 3 jl7 Triage Assessment: 09:17 General: Appears in no apparent distress. uncomfortable, Behavior is cooperative, jl7 appropriate for age, anxious. Pain: Complains of pain in pelvis Pain currently is 4 out of 10 on a pain scale. Neuro: Level of Consciousness is awake, alert, obeys commands, Oriented to person, place, time, situation. Cardiovascular: Patient's skin is warm and dry. Respiratory: Airway is patent Respiratory effort is even, unlabored, Respiratory pattern is regular, symmetrical. Derm: Skin is pink, warm \T\ dry. 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 - Social history:: Smoking status: Patient denies any tobacco usage or history of. Screenin:31 [facility] ED Fall Risk Assessment (Adult) History of falling in the last 3 months, nj1 including since admission No falls in past 3 months (0 pts) Confusion or Disorientation No (0 pts) Intoxicated or Sedated No (0 pts) Impaired Gait No (0 pts) Mobility Assist Device Used No (0 pt) Altered Elimination No (0 pt) Score/Fall Risk Level 0 - 2 = Low Risk Oriented to surroundings, Maintained a safe environment, Hourly rounding (assess needs \T\ fall precautionary measures) done. Abuse screen: Denies threats or abuse. Denies injuries from another. Nutritional screening: No deficits noted. Tuberculosis screening: No symptoms or risk factors identified. Assessment: :52 Reassessment: Patient appears in no apparent distress at this time. Patient and/or nj1 family updated on plan of care and expected duration. Pain level reassessed. Patient is alert, oriented x 3, equal unlabored respirations, skin warm/dry/pink. Vital Signs: 09:15 BP 130 / 85; Pulse 78; Resp 17; Temp 97.9; Pulse Ox 100% ; Weight 79.38 kg; Height 5 jl7 ft. 5 in. ; Pain 4/10; 09:52 BP 117 / 81; Pulse 67; Resp 16; Pulse Ox 99% on R/A; nj1 09:15 Body Mass Index 29.12 (79.38 kg, 165.1 cm) 7 09:15 Pain Scale: Adult [facility] ED Course: 08:57 Patient arrived in ED. am2 09:00 [facility]uthrie [facility] 09:00 Vinayak Eastman MD is Attending Physician. [facility] 09:08 Sari Nunez, JOON is Primary Nurse. md1 09:17 Triage completed. 7 09:17 Arm band placed on right wrist. 7 09:31 Test, Urine Sent. nj1 09:31 Urinalysis W/Microscopic Sent. nj1 09:32 Patient has correct armband on for positive identification. Placed in gown. Bed in [facility] position. Call light in reach. 09:36 Assist provider with pelvic exam: Set up pelvic tray. Performed by Sonam BRYSON [facility] Patient tolerated well. 09:52 Patient did not have IV access during this emergency room visit. nj1 Administered Medications: No medications were administered Medication: :52 VIS not applicable for this client. nj1 Outcome: :43 Discharge ordered by . sukh :52 Discharged to home ambulatory. nj1 :52 Condition: stable :52 Discharge instructions given to patient, Instructed on discharge instructions, follow up and referral plans. medication usage, Demonstrated understanding of instructions, follow-up care, medications, Prescriptions given X 1. 10:04 Patient left the ED. nj1 Signatures: Eleno Lozano, RN RN 7 Nancy Laguerre Jennifer, SPECIAL NEEDS BABYSITTER SPECIAL NEEDS BABYSITTER 7 Sari Nunez RN RN nj1
[2023-05-06 10:09] VITALS: TEMP 97.9
[2023-05-06 10:11] VITALS: BP 117/81; O2SAT 99
== END 2023-05-06 10:04 | disposition home or self-care (01) ==
LOC: ER 08:54
DX: R30.0 Dysuria (principal); I10 Essential (primary) hypertension; E03.9 Hypothyroidism, unspecified; Z88.2 Allergy status to sulfonamides; Z88.5 Allergy status to narcotic agent; Z88.8 Allergy status to other drugs, medicaments and biological substances
CPT/HCPCS: 81001; 81025; 99283

== ENCOUNTER 2025-04-18 22:01 | Emergency (ER) | payer OTHER, SELFPAY ==
--- OUTSIDE RECORDS SUMMARY | 2025-04-18 22:16 | XMS REPORT | Continuity of Care Document ---
Author Name Unknown Address [address] [facility] [address] [place] [address] Organization [facility] [place] Address [address] [facility] [address] [place] [address] Care Team Providers Care Grab Driver Name Role Phone Jason Bartlett Primary Care Physician JORDY SENA Attending Clinician Unavailable LAURIE FITZPATRICK Attending Clinician Unavailable LAURIE FITZPATRICK Attending Clinician Unavailable Jordy Sena MD Attending Clinician [phone] Laurie Fitzpatrick MD Attending Clinician ИВАН WALL Attending Clinician Unavailable Jojo Dillard Attending Clinician Neema Guadalupe PA-C Attending Clinician Hina Garcia MD Attending Clinician Loan Walton Attending Clinician Unavailable JOJO GILMAN Attending Clinician Unavailable Unknown, Attending Attending Clinician Unavailab le 2, Adc Lab Attending Clinician Unavailable Иван Wall DNP Attending Clinician [phone] NEEMA GUADALUPE Attending Clinician Unavailable EDSON BERGMAN Attending Clinician Unavailab le PACHECO, EDSON Attending Clinician Unavailab le Pacheco COPIER AND PRINTER FIELD TECHNICIAN, Edson Attending Clinician [phone] Lab, Ang - Db Attending Clinician Unavailable Hemal Izaguirre MD Attending Clinician [phone] HEMAL IZAGUIRRE Attending Clinician Unavailable Doctor Unassigned, [place] Attending Clinician U alexandria Portillo MD, Marlon Attending Clinician [phone] MARLON PORTILLO Attending Clinician Unavailable Marlon Portillo MD Attending Clinician [phone] TRAMAINE BARNARD Attending Clinician Unavailable TRAMAINE BARNARD Attending Clinician Unavailable , Lab Attending Clinician Unavailable ALESHIA DONALDSON Attending Clinician Unavail able Doctor Unassigned, [place] Attending Clinician U elizabethailCHAYA Dutton Attending Clinician UnavailJordy Dowling MD Attending Clinician [phone] EbTerri Clayton Attending Clinician [phone] Unknown, Attending Attending Clinician Unavailab TERRI Ribera Attending Clinician Unavailable CODIE SHRESTHA Attending Clinician Unavailable Lab, Ang - Db Attending Clinician Unavailable FUENTES WALSH Attending Clinician Unavailable FUENTES WALSH Attending Clinician Unavailable Jojo Dillard Attending Clinician [phone] Francesca Chavez MD Attending Clinician +[phone] FRANCESCA CHAVEZ Attending Clinician Unavailable Therese Wise Attending Clinician UnavailLAVONNE Wilcox Attending Clinician Unavailable LAVONNE STANLEY Attending Clinician Unavailable GARRETT VILLALTA Attending Clinician Unavailable Garrett Villalta MD Attending Clinician [phone] Mariann Draper Attending Clinician +[phone] MARIANN HOROWITZ Attending Clinician Unavailable Simone Li MD Attending Clinician +[phone] ABBY OWENS III Attending Clinician Unavailmarie Owens III, MD, Abby Camejo Attending Clinician [phone] Chaya Marquez MA Attending Clinician UnavailTODD Aragon Attending Clinician Unavailable Clinic, Neurosurgery Resident Attending Glenna mills Unavailable Abraham CHIEF BUSINESS DEVELOPMENT OFFICER, Adrianne Camejo Attending Clinician [phone] Marcelo DUPREE, Mela Daly Attending Clinician [phone] Latonya Watkins DO Attending Clinician + [phone] Mary HASTINGS, Lio Attending Clinician +[phone] SIMONE LI Attending Clinician Unavail able SIMONE LI Attending Clinician Unavail able Nallely DUPREE, Sonam Kelley Attending Clinician Unav Gaetano Sanon Attending Clinician Unavailable KOLE LUNA Attending Clinician Unavailable LICHA BLAIR Attending Clinician Unavailmarie Blair CHIEF BUSINESS DEVELOPMENT OFFICER, Licha Attending Clinician [phone] THERESE LOPEZ Attending Clinician Unavailable Kelechi BRYSON, John Attending Clinician +[phone] LATONYA WATKINS Attending Clinician Unavailab Lisseth Ward Attending Clinician +[phone] LISSETH MICHELLE Attending Clinician Unavailab Mary Carmen Szymanski RN Attending Clinician Unavailable Only, Ang Db Test Attending Clinician Unavailmarie Smart MD, Nancy Attending Clinician +[phone] NANCY SMART Attending Clinician Unavailable Ingrid Branch RN Attending Clinician Unavailable DEANDRE WATKINS Attending Clinician UnavailRhoda Drew RN Attending Clinician UnavailJOHN [place] Attending Clinician Unavailable JAMIE LOCK Attending Clinician Unavailable FAN BOUCHER Attending Clinician Unavailab Jamie Rothman MD Attending Clinician [phone] ADRIANNE ROSARIO Attending Clinician Unavailab Supriya Hernandez RN Attending Clinician Unavailable Leoncio Tavares MD Attending Clinician [phone] Maisha MARSHALL, Manju Attending Clinician [phone] Romulo Ramirez Attending Clinician +[phone] Provider, [facility] Attending Clinician Un available Dixie CHIEF BUSINESS DEVELOPMENT OFFICER, Cornell Attending Clinician [phone] CORNELL COLIN Attending Clinician Unavailable Vicky Tucker MD Attending Clinician [phone] Leena Matson Attending Clinician +[phone] Madison HASTINGS, Dale Vincent Attending Clinician + [phone] Kori HASTINGS, Marta Attending Clinician +[phone] Krishna HASTINGS, Renea Arreola Attending Clinician [phone] Katelyn Lombardi DO Attending Clinician +[phone] Jose D HASTINGS, Nga Rand Attending Clinician [phone] NGA JEFFERY Attending Clinician Unavailmarie Aleman MD, Dinesh Nascimento Attending Clinician [phone] Andreea DUPREE, Jaqui Chisholm Attending Clinician Unav becka Landrum MD, Donaldo Vinson Attending Clinician [phone] JIMBO VALDEZ Attending Clinician Unavailab margarita Leo MD, Rodrigo Martines Attending Clinician [phone] Tyree Moura MD Attending Clinician [phone] Latosha Ortiz RN Attending Clinician Unavailconrad Flores MD, Romulo Attending Clinician +[phone] Duc HASTINGS, Romulo Attending Clinician +[phone] Trae SMALLP, Jimbo Deleon Attending Clinician +[phone] Jayme Crane MD Attending Clinician [phone] Quiana HASTINGS, Romulo Attending Clinician [phone] Faculty, [facility] Attending Clinician Jacek Cantrell DO Attending Clinician [phone] Gurjit Summers MD Attending Clinician +[phone] Micaela Rosenbaum RN Attending Clinician UnavailVIVIENNE Campos Attending Clinician Unavailable Tahira CHIEF BUSINESS DEVELOPMENT OFFICER, Vivienne Attending Clinician [phone] Lab, Adc [facility] Pob I Attending Clinician Unavailab margarita Huston MD, Rios Attending Clinician + Akinsipe CNP, Aleshia Camejo Attending Clinician + Carlton HASTINGS, Eulogio Attending Clinician [phone] GURJIT SUMMERS Attending Clinician Unavailable GURJIT SUMMERS Attending Clinician Unavailable Ultrasound, [facility] Attending Clinician Unavaila rafa Boucher MD, Fan Levy Attending Clinician [phone] Danny HASTINGS, Jo Espinosa Attending Clinician [phone] Colin HASTINGS, Blank Attending Clinician +[phone] Shorty Vargas RN, Neema Attending Clinician Unavailable Ivonne SMALLP, Yun Attending Clinician [phone] Risk, Lck-Zogvs-Hr/High Attending Clinician Unav ailable Lacey CNP, Mary Carmen Juarez Attending Clinician [phone] Nabil DUPREE, Kat Barkley Attending Clinician [phone] RENEA GALARZA Attending Clinician Unavailable Иван HASTINGS, Dinesh Attending Clinician +[phone] Gene DUPREE, Lakesha Cruz Attending Clinician Unavailab margarita Sales, [facility] Attending Clinician Unav ailable Gregory López Attending Clinician [phone] Ralph HASTINGS, Keshav Chisholm Attending Clinician +[phone] GREGORY BEAVERS Attending Clinician Unavailable PIETER DONALDSON Attending Clinician Unavailable Ezekiel Mosquera Attending Clinician +[phone] Pieter Donaldson MD Attending Clinician +[phone] Austyn Sinclair DO Attending Clinician [phone] Pcp, Patient Does Not Have A Attending Clinician Cristopher HASTINGS, Kat Carter Attending Clinician + [phone] Luis DUPREE, Tong Attending Clinician Unavailab margarita Perez RN, Mira Daly Attending Clinician Unavail able 5, [facility] Attending Clinician Unavaila Christina Arshad MD Attending Clinician [phone] JAYME CRANE Attending Clinician Unavailable ADRIENNE RECIO Attending Clinician Unavailable ADRIENNE RECIO Attending Clinician Unavailable GISELLE DANIELS M.D. Attending Clinician ROMULO Hidalgo Admitting Clinician Unavailable EDSON BERGMAN Admitting Clinician Unavailab MARLON Hall Admitting Clinician Unavailable TRAMAINE BARNARD Admitting Clinician Unavailable GARRETT VILLALTA Admitting Clinician Unavailable Garrett Villalta MD Admitting Clinician +[phone] LIO PATEL Admitting Clinician Unavailable SIMONE LI Admitting Clinician Unavail able Kori HASTINGS, Marta Admitting Clinician +[phone] NGA JEFFERY Admitting Clinician Unavailmarie Landrum MD, Donaldo Vinson Admitting Clinician +[phone] TRAMAINE BARNARD Admitting Clinician Unavailable Jo Rivera MD Admitting Clinician +[phone] Colin HATSINGS, Blank Admitting Clinician +[phone] PIETER DONALDSON Admitting Clinician Unavailable Pieter Donaldson MD Admitting Clinician +[phone] AUSTYN SINCLAIR Admitting Clinician Unavailable Laurie Fitzpatrick MD Admitting Clinician [phone] Payers Payer Name Policy Type Policy Number Effective Date Expirati on Date Source [facility] [id number] 00:00:00 MEDICAID PENDING PENDING 2020 00:00:00 [facility] GENERIC [id number] 2023 00:00:00 MED[place]ID [place] [id number] 2020 00:00:00 [facility] MEDICAID [id number] 2019 00:00:00 Problems Condition Name Condition Details Condition Category Status Onset Date Resolution Date Last Treatment Date Treating Clinician Comments Source Chest pain, unspecifie d type Chest pain, unspecifie d type Disease Active 05-24 00:00: 00 [facility] Nonintract able headache, unspecifie d chronicity pattern, unspecifie d headache type Nonintract able headache, unspecifie d chronicity pattern, unspecifie d headache type Disease Active 05-24 00:00: 00 [facility] Persistent headaches Persistent headaches Disease Active 6 00:00: 00 [facility] Sinus arrhythmia Sinus arrhythmia Disease Active 02-18 00:00: 00 [facility] Family history of sudden in father Family history of sudden in father Disease Active 01-26 00:00: 00 Overview: Formattin g of this note might be different from the original. Reports passed on yesterday 01-25-21 [facility] Mild intermitte nt asthma without complicati on Mild intermitte nt asthma without complicati on Disease Active 2019-12 00:00: 00 [facility] BACK PAIN BACK PAIN Active 08/08/2020 [place] Diagnosis Active 08-08 00:00: 00 2020-09-01 14:26:00 [facility] Cervantes Obstructiv e hydrocepha alex Obstructiv e hydrocepha alex Disease Active 08-18 00:00: 00 Overview: Formattin g of this note might be different from the original. Status post PULLBOAT ENGINEER shunt placement [facility] HEAD INJURY HEAD INJURY Active 05/24/2014 [place] Diagnosis Active 05-24 00:00: 00 2014-05-24 16:04:00 Marcel[facility] Cervantes Chronic lymphocyti c thyroiditi s Chronic lymphocyti c thyroiditi s Disease Active 2-15 00:00: 00 [facility] History of asthma History of asthma [facility] Hypothyroi dism Hypothyroi dism Problem Active [facility] state state Problem Active [facility] High risk for diabetes mellitus High risk for diabetes mellitus Problem Active [facility] Acute headache Acute headache Active Problem 08/11/2020 [place] Problem Active 2020-08-11 21:01:09 Marcelino Cervantes Asthenia (finding) Asthenia (finding) Active Problem 08/11/2020 [place] Problem Active 2020-08-11 21:01:09 Marcelino Cervantes Hydrocepha alex (disorder) Hydrocepha alex (disorder) Resolved Problem 08/11/2020 [place], [place] Problem Resolve d 2020-08-11 21:01:09 Marcelino Cervantes Chronic hypertensi on affecting Chronic hypertensi on affecting Disease Resolve d 2-26 00:00: 00 2024-07-08 00:00:00 2024-07-08 09:38:49 [facility] Abnormal maternal glucose tolerance, antepartum Abnormal maternal glucose tolerance, antepartum Disease Resolve d 2019-12 0-15 00:00: 00 2024-07-08 00:00:00 2024-07-08 09:38:46 [facility] Multiparit y Multiparit y Disease Resolve d 9-23 00:00: 00 2024-07-08 00:00:00 2024-07-08 09:38:44 [facility] Short interval between pregnancie s affecting in first trimester, antepartum Short interval between pregnancie s affecting in first trimester, antepartum Disease Resolve d 9-23 00:00: 00 2024-07-08 00:00:00 2024-07-08 09:38:45 [facility] 38 weeks gestation of 38 weeks gestation of Disease Resolve d 2018-12 2-06 00:00: 00 2024-07-08 00:00:00 2024-07-08 09:38:43 [facility] Hypothyroi d in , antepartum Hypothyroi d in , antepartum Disease Resolve d 2-16 00:00: 00 2024-07-08 00:00:00 2024-07-08 09:38:57 Overview: Formattin g of this note might be different from the original. ICD10 Diagnosis Term Private Branch Exchange Operator Utility [facility] Need for Tdap vaccinatio n Need for Tdap vaccinatio n Disease Resolve d 3-10 00:00: 00 2021-04-08 00:00:00 2021-04-08 12:07:34 [facility] Supervisio n of high risk in second trimester Supervisio n of high risk in second trimester Disease Resolve d 7-18 00:00: 00 2021-04-08 00:00:00 2021-04-08 11:53:24 [facility] Obesity affecting in second trimester Obesity affecting in second trimester Disease Resolve d 2017-12 2-11 00:00: 00 2021-04-08 00:00:00 2021-04-08 11:53:22 [facility] Drug allergy, multiple Drug allergy, multiple Disease Resolve d 6-06 00:00: 00 2021-04-08 00:00:00 2022-06-16 00:40:55 [facility] IIH (idiopathi c intracrani al hypertensi on) IIH (idiopathi c intracrani al hypertensi on) Disease Resolve d 2019-12 00:00: 00 2020-12-24 00:00:00 2020-12-24 20:00:31 [facility] Diplopia Diplopia Disease Resolve d 2019-12 00:00: 00 2020-12-24 00:00:00 2020-12-24 20:00:29 [facility] Intractabl e headache Intractabl e headache Disease Resolve d 2019-12 00:00: 00 2020-12-24 00:00:00 2020-12-24 20:00:36 [facility] Headache in , first trimester Headache in , first trimester Disease Resolve d 2019-12 00:00: 00 2020-12-24 00:00:00 2020-12-24 20:00:38 [facility] Class 2 obesity in adult, unspecifie d BMI, unspecifie d obesity type, unspecifie d whether serious comorbidit y present Class 2 obesity in adult, unspecifie d BMI, unspecifie d obesity type, unspecifie d whether serious comorbidit y present Disease Resolve d 9-20 00:00: 00 2020-10-08 00:00:00 2020-10-08 17:45:01 [facility] Acquired autoimmune hypothyroi dism Acquired autoimmune hypothyroi dism Disease Resolve d 0 9-18 00:00: 00 2020-10-08 00:00:00 2022-06-16 00:32:11 [facility] Muscle spasm Muscle spasm Disease Resolve d 08-23 00:00: 00 2020-08-27 00:00:00 2020-08-27 11:19:25 [facility] BMI 39.0-39.9, adult BMI 39.0-39.9, adult Disease Resolve d 08-23 00:00: 00 2020-08-27 00:00:00 2020-08-27 11:19:26 [facility] Screening for viral disease Screening for viral disease Disease Resolve d 08-23 00:00: 00 2020-08-27 00:00:00 2020-08-27 11:19:28 [facility] Headache Headache Disease Resolve d 04-01 00:00: 00 2020-08-27 00:00:00 2020-08-27 11:19:23 [facility] History of ventriculo peritoneal shunting History of ventriculo peritoneal shunting Disease Resolve d 2017-12 2- 00:00: 00 2020-08-27 00:00:00 2020-08-27 11:19:17 [facility] Family history of diabetes mellitus Family history of diabetes mellitus Disease Resolve d 2017-12- 00:00: 00 2020-08-27 00:00:00 2020-08-27 11:19:19 [facility] Varicella (disorder) Varicella (disorder) Resolved 04/08/1999 Problem 08/11/2020 [facility] [place] Problem Resolve d 04-08 00:00: 00 2020-08-11 21:01:09 2020-08-11 21:01:09 Marcelino Cervantes (spontaneo us vaginal delivery) (spontaneo us vaginal delivery) Disease Resolve d 2018-12 00:00: 00 2019-11-30 00:00:00 2019-11-30 15:45:49 [facility] Single liveborn Single liveborn Disease Resolve d 2018-12 2- 00:00: 00 2019-11-30 00:00:00 2019-11-30 15:45:45 [facility] Single liveborn Single liveborn Disease Resolve d 2018-12 00:00: 00 2019-11-30 00:00:00 2019-11-30 15:45:45 [facility] Oligohydra mnios Oligohydra mnios Disease Resolve d 2018- 2-06 00:00: 00 2019-11-30 00:00:00 2019-11-30 15:45:44 [facility] Hypothyroi dism affecting in third trimester Hypothyroi dism affecting in third trimester Disease Resolve d 2018- 0-09 00:00: 00 2019-11-30 00:00:00 2019-11-30 15:45:41 [facility] Supervisio n of high-risk Supervisio n of high-risk Disease Resolve d 4-19 00:00: 00 2019-11-30 00:00:00 2019-11-30 15:45:48 [facility] Hypothyroi dism affecting Hypothyroi dism affecting Disease Resolve d 2017-12- 00:00: 00 2019-10-25 00:00:00 2019-10-25 16:01:34 [facility] Acquired acanthosis nigricans Acquired acanthosis nigricans Disease Resolve d 2-15 00:00: 00 2019-10-25 00:00:00 2019-10-25 16:01:25 [facility] with inconclusi ve viability, single or unspecifie d fetus with inconclusi ve viability, single or unspecifie d fetus Disease Resolve d 2017-12- 00:00: 00 2019-03-19 00:00:00 2019-03-19 15:00:51 [facility] with inconclusi ve viability, single or unspecifie d fetus with inconclusi ve viability, single or unspecifie d fetus Disease Resolve d 2017-12-20 00:00: 00 2019-03-19 00:00:00 2019-03-19 15:00:51 [facility] Elevated blood pressure reading without diagnosis of hypertensi on Elevated blood pressure reading without diagnosis of hypertensi on Disease Resolve d 2015-12 2-16 00:00: 00 2019-03-19 00:00:00 2019-03-19 15:01:39 [facility] Primary stabbing headache Primary stabbing headache Disease Resolve d 2 00:00: 00 2018-11-10 00:00:00 2018-11-10 15:13:15 [facility] care and examinatio n of lactating mother care and examinatio n of lactating mother Disease Resolve d 2015-12 00:00: 00 2018-11-10 00:00:00 2018-11-10 15:12:01 [facility] Second degree perineal laceration Second degree perineal laceration Disease Resolve d 2015-12 00:00: 00 2018-11-10 00:00:00 2018-11-10 15:12:10 [facility] Obesity, Class I, BMI 30-34.9 Obesity, Class I, BMI 30-34.9 Disease Resolve d 0 9-17 00:00: 00 2018-11-10 00:00:00 2018-11-10 15:13:22 [facility] 39 weeks gestation of 39 weeks gestation of Disease Resolve d 2015-12 00:00: 00 2016-11-15 00:00:00 2016-11-15 10:43:07 [facility] Asthma affecting , antepartum Asthma affecting , antepartum Disease Resolve d 2015-12 0- 00:00: 00 2016-11-15 00:00:00 2022-06-16 00:42:29 [facility] Trauma left toe, initial encounter Trauma left toe, initial encounter Disease Resolve d 2015-12 0- 00:00: 00 2016-11-15 00:00:00 2016-11-15 10:43:09 [facility] Nervous system disease complicati ng in second trimester Nervous system disease complicati ng in second trimester Disease Resolve d 06-20 00:00: 00 2016-11-15 00:00:00 2016-11-15 10:43:12 [facility] Hypothyroi dism affecting Hypothyroi dism affecting Disease Resolve d 06-20 00:00: 00 2016-11-15 00:00:00 2016-11-15 10:43:11 [facility] History of Past Illness Condition Name Condition Details Condition Category Status Onset Date Resolution Date Last Treatment Date Treating Clinician Comments Source Headache Headache 08/09/2020 08/11/2020 [facility] [place] Problem 9-09 17:00: 00 2020-08-11 21:01:09 2020-08-11 21:01:09 Marcelino Cervantes Weakness Weakness 08/09/2020 0 [facility] [place] Problem 9-09 17:00: 00 2020-08-11 21:01:09 2020-08-11 21:01:09 Marcelino Cervantes Other muscle spasm Other muscle spasm 08/09/2020 08/11/2020 [facility] [place] Problem 9-09 17:00: 00 2020-08-11 21:01:09 2020-08-11 21:01:09 Marcelino Cervantes Discharge Diagnosis: Acute headache Discharge Diagnosis: Acute headache 05/24/2014 4 [facility] [place] Problem 05-24 05:00: 00 2014-05-27 00:36:03 2014-05-27 00:36:03 Marcelino Cervantes Allergies, Adverse Reactions, Alerts Allergy Name Allergy Type Status Severity Reaction(s) Onset Date Inactive Date Treating Clinician Comments Source none (Not Checked) Propensi ty to adverse reaction to drug Active 5-20 00:00: 00 Dinesh Chen Ketorola c Trometha mine - Oral Propensi ty to adverse reaction to drug Active 8-06 00:00: 00 Dinesh Chen sulfa meds (Not Checked) Propensi ty to adverse reaction to drug Inactiv e 3-07 00:00: 00 Dinesh Chen Fentanyl Propensi ty to adverse reaction s Active Other - See comments 05-01 00:00: 00 Fentanyl causes heart rate to drop and pt to pass out [facility] Metoclop ramide Propensi ty to adverse reaction s Active Nausea and/or Vomiting 6- 00:00: 00 [facility] FENTANYL DRUG INGREDI Active Other-Cmnt 6- 00:00: [address] [facility] METOCLOP RAMIDE DRUG INGREDI Active N/V 05-01 00:00: 00 [facility] Ketorola c Trometha mine Propensi ty to adverse reaction s Active Other - See comments 2018-12 00:00: 00 States worsened headache "made my whole head go on fire" [facility] KETOROLA C TROMETHA MINE DRUG INGREDI Active Other-Cmnt 2018-12 0 00:00: 00 [facility] Morphine Propensi ty to adverse reaction s Active Palpitations 08-17 00:00: 00 [facility] MORPHINE DRUG INGREDI Active Palpitations 08-17 00:00: 00 [facility] Bromphen iramine- Pseudoep h-Dm Drug Intolera nce Active Swelling 01-15 00:00: 00 [facility] Sulfa (Sulfona mide Antibiot ics) Propensi ty to adverse reaction s to drug Active Rash 01-15 00:00: 00 [facility] BROMPHEN IRAMINE- PSEUDOEP H-DM DRUG Active Swelling 01-15 00:00: 00 [facility] SULFA (SULFONA MIDE ANTIBIOT ICS) Drug Class Active Rash 01-15 00:00: 00 [facility] morphine drug allergy Active [facility] sulfa drug allergy Active [facility] No Known Medicati on Allergie s No Known Medicati on Allergie s Active [facility] C[facility] Family History Family Member Diagnosis Comments Start Date Stop Date Sourc e Unknown Family Member Family history of Calcium kidney stones Other [facility] Grandparent Family history of malignant neoplasm [facility]mother Family history of hyperthyroidism [facility] Grandmother Family history of essential hypertension [facility] Grandmother Family history of joaqiuna ng cancer [facility] cousin Family history of hypothyroidism [facility] Mother Family history of ty pe 2 diabetes mellitus [facility] Father Family history of ty pe 2 diabetes mellitus [facility] Brother Family history of ty pe 2 diabetes mellitus [facility] Brother Family history of myocardial infarction [facility] Social History Social Habit Start Date Stop Date Quantity Comments Source [facility] Alcoholic beverage intake 2025-03-07 00:00:00 2025-03-07 00:00:00 Ex-drinker (finding) [facility] History of Social function 2024-07-08 00:00:00 2024-07-08 00:00:00 [facility] Tobacco use and exposure 2023-10-06 00:00:00 2023-10-06 00:00:00 Smokeless tobacco non-user [facility] Alcohol intake 2023-10-06 00:00:00 2023-10-06 00:00:00 Ex-drinker (finding) [facility] Exposure to SARS-CoV-2 (event) 2023-03-16 00:00:00 2023-03-26 10:15:00 Not sure [facility] Sex Assigned At 1995 00:00:00 1995 00:00:[address] [facility] Smoking Status Start Date Stop Date Source Tobacco smoking consumption unknown [facility] Never smoked tobacco [facility] Medications Ordered Medication Name Filled Medication Name Start Date Stop Date Current Medication? Ordering Clinician Indication Dosage Frequency Signature (SIG) Comments Components Source levothyroxi ne 150 mcg tablet 5-05 00:00: 00 Yes [id number] 150ug Take 1 tablet by mouth every morning. [facility] ergocalcife rol, vitamin D2, (VITAMIN D ORAL) 4-07 15:23: 53 Yes Take by mouth. [facility] levothyroxi ne 150 mcg tablet 2-25 00:00: 00 04-04 00:00 :00 No [id number] 150ug Take 1 tablet by mouth every morning. [facility] amoxicillin 875 mg tablet 2-17 00:00: 00 01-28 05:59 :00 No [id number] 875mg Take 1 tablet by mouth in the morning and 1 tablet in the evening. Do all this for 10 days. [facility] metroNIDAZO LE 500 mg tablet 2-15 00:00: 00 03-07 00:00 :00 No [id number] 500mg Take 1 tablet by mouth every 12 (twelve) hours. [facility] fluconazole (DIFLUCAN) 150 mg tablet 1-30 00:00: 00 12-31 05:59 :00 No 150mg Take 1 tablet by mouth once now for 1 dose. [facility] doxycycline hyclate 100 mg tablet 1-27 00:00: 00 01-04 05:59 :00 No [id number] 100mg Take 1 tablet by mouth in the morning and 1 tablet in the evening. Do all this for 7 days. [facility] metroNIDAZO LE 500 mg tablet 12-25 00:00: 00 01-15 00:00 :00 No [id number] 500mg Take 1 tablet by mouth every 12 (twelve) hours. [facility] azithromyci n (ZITHROMAX Z-SILVIANO) 250 mg tablet 07-08 00:00: 00 03-07 00:00 :00 No [id number] Take 2 tabs on Day 1 and then 1 tab daily [facility] diclofenac 75 mg EC tablet 07-05 00:00: 00 Yes [id number] 75mg Take 1 tablet by mouth in the morning and 1 tablet in the evening. Take with meals. [facility] metroNIDAZO LE (FLAGYL) 500 mg tablet 07-05 00:00: 00 07-11 04:59 :00 No [id number] 500mg Take 1 tablet by mouth every 8 (eight) hours for 5 days. [facility] doxycycline hyclate 100 mg capsule 06-02 00:00: 00 03-07 00:00 :00 No TAKE ONE CAPSULE TWICE DAILY WITH FOOD. WAIT AT LEAST 2 HOURS BEFORE LYING DOWN [facility] iopamidol (ISOVUE 370-500 mL) injection 100 mL 05-21 05:00: 00 05-21 05:00 :00 No [id number] 100mL 100 mL, Intravenou s, ONCE, 1 dose, On Fri05/21/24 at 0000, Routine [facility] ESTARYLLA 0.25-35 mg-mcg per tablet 05-06 00:00: 00 03-07 00:00 :00 No 1{tbl} Take 1 tablet by mouth in the morning. [facility] ibuprofen (IBU) tablet 800 mg 04-24 17:30: 00 04-24 16:41 :00 No [id number] 800mg 800 mg, Oral, ONCE, 1 dose, On 04/24/24 at 1230, Routine [facility] acetaminoph en (TYLENOL) tablet 975 mg 04-24 17:30: 00 04-24 16:42 :00 No [id number] 975mg 975 mg, Oral, ONCE, 1 dose, On 04/24/24 at 1230, Routine [facility] ferrous sulfate (IRON) 325 mg (65 mg iron) tablet 04-13 00:00: 00 Yes 325mg Take 1 tablet by mouth in the morning and 1 tablet in the evening. [facility] levothyroxi ne 150 mcg tablet 04-05 00:00: 00 01-25 00:00 :00 No [id number] 150ug Take 1 tablet by mouth every morning. [facility] levothyroxi ne 150 mcg tablet 2022-12 00:00: 00 04-05 00:00 :00 No Take one tablet daily except Friday [facility] Levothyroxi ne 150 mcg capsule 2022-12 00:00: 00 Yes Take every day except friday [facility] amoxicillin 500 mg tablet 2022-12 00:00: 00 05-18 00:00 :00 No [id number] 1000mg Take 2 tablets by mouth in the morning. [facility] Levothyroxi ne 150 mcg capsule 2022-12 14:49: 16 10-14 00:00 :00 No .15mg Take 1 capsule by mouth in the morning. [facility] Levothyroxi ne 150 mcg capsule 2022-12 00:00: 00 11-05 00:00 :00 No Take every day except friday [facility] Levothyroxi ne 150 mcg capsule 2022-12 14:04: 28 Yes .15mg Take 1 capsule by mouth in the morning. [facility] TAKE 1 CAPSULE BY MOUTH EVERY 12 HOURS FOR 7 DAYS 05-06 00:00: 00 Yes Dinesh Chen LEVOTHYROXI N 150MCG 05-06 00:00: 00 Yes [id number] Dinesh Chen LEVOTHYROXI N 150MCG 04-05 00:00: 00 Yes [id number] Dinesh Chen TAKE 1 TABLET EVERY MORNING. 03-31 00:00: 00 04-11 00:00 :00 No 150 Dinesh Chen LEVOTHYROXI N 150MCG 03-26 00:00: 00 04-11 00:00 :00 No Dinesh Chen TAKE 1 TABLET EVERY MORNING. 03-25 00:00: 00 04-11 00:00 :00 No 150 Dinesh Chen NITROFUR MAC 100MG 02-27 00:00: 00 Yes 100 Dinesh Chen TAKE 1 TABLET BY MOUTH IN THE MORNING 1 TAB AT NOON, 1 TAB IN THE EVENING WITH MEALS 02-27 00:00: 00 Yes Dinesh Chen nitrofurant oin 100 mg capsule 02-27 00:00: 00 10-06 00:00 :00 No [id number] 100mg Take 1 capsule by mouth in the morning and 1 capsule in the evening. [facility] phenazopyri dine 200 mg tablet 02-27 00:00: 00 10-06 00:00 :00 No [id number] 200mg Take 1 tablet by mouth in the morning and 1 tablet at noon and 1 tablet in the evening. Take after meals. [facility] TAKE 2 CAPSULES BY MOUTH EVERY MORNING FOR 10 DAYS 2021-12 00:00: 00 Yes Dinesh Chen OSELTAMIVIR 75MG 2021-12 00:00: 00 Yes Dinesh Chen amoxicillin 500 mg tablet 2021-12 00:00: 11-29 05:59 :00 No [id number] 1000mg Take 2 tablets by mouth in the morning for 10 days. [facility] oseltamivir (TAMIFLU) 75 mg capsule 2021-12 00:00: 00 11-24 05:59 :00 No [id number] 75mg Take 1 capsule by mouth in the morning and 1 capsule in the evening. Do all this for 5 days. [facility] LEVOTHYROXI N 150MCG 2021-12 00:00: 00 04-11 00:00 :00 No Dinesh Karel Chen Dose Unknown 2021-12 00:00: 00 Yes Dinesh Chen HYDROCODONE BITARTRATE/ AC 5-325MG TAB 2021-12 00:00: 00 Yes Dinesh Chen Dose Unknown 2021-12 00:00: 00 Yes Dinesh Chen Dose Unknown 2021-12 00:00: 00 Yes Dinesh Chen Dose Unknown 2021-12 00:00: 00 Yes Dinesh Chen FAMOTIDINE 20MG TAB 2021-12 00:00: 00 Yes Dinesh Chen INSERT 1 SUPPOSITORY RECTALLY EVERY 4 TO 6 HOURS NEEDED. 2021-12 00:00: 00 No TWICE DAILY BY MOUTH 2021-12 00:00: 00 No TAKE 1 TABLET EVERY MORNING. 2021-12 00:00: 00 No TAKE 1 TABLET TWICE DAILY UNTIL FINISHED. 2021-12 00:00: 00 No AMOXICILLIN /CLAVULANAT E P 875-125 TAB 2021-12 00:00: 00 No MARY LEVOTHYROXI NE SODIUM 175MCG TAB 2021-12 2- 00:00: 00 No TAKE 1 TABLET BY MOUTH EVERY DAY 2021-12 2- 00:00: 00 No Dose Unknown 2021-12 00:00: 00 No PREDNISONE 20MG TAB 2021-12 00:00: 00 No MIRENA SYSTEM IUD 2021-12 2- 00:00: 00 No HYDROCODONE BITARTRATE/ AC 5-325MG TAB 2021-12 2- 00:00: 00 No Dose Unknown 2022-1 2-15 00:00: 00 No Dose Unknown 2021-12 2-15 00:00: 00 No Dose Unknown 2021-12 2-15 00:00: 00 No Dose Unknown 2021-12 2-15 00:00: 00 No Dose Unknown 2021-12 2-15 00:00: 00 No FAMOTIDINE 20MG TAB 2021-12 2-15 00:00: 00 No INSERT 1 SUPPOSITORY RECTALLY EVERY 4 TO 6 HOURS NEEDED. 2021-12 2-15 00:00: 00 04-11 00:00 :00 No Dinesh Chen TWICE DAILY BY MOUTH 2021-12 2-15 00:00: 00 04-11 00:00 :00 No Dinesh Chen TAKE 1 TABLET EVERY MORNING. 2021-12 2-15 00:00: 00 04-11 00:00 :00 Korina Chen TAKE 1 TABLET TWICE DAILY UNTIL FINISHED. 2021-12 2- 00:00: 00 04-11 00:00 :00 Korina Chen AMOXICILLIN /CLAVULANAT E P 875-125 TAB 2021-12 2-15 00:00: 00 04-11 00:00 :00 No Dinesh Chen MARY LEVOTHYROXI NE SODIUM 175MCG TAB 2021-12 2-15 00:00: 00 04-11 00:00 :00 Korina Chen TAKE 1 TABLET BY MOUTH EVERY DAY 2021-12 2-15 00:00: 00 04-11 00:00 :00 Korina Chen PREDNISONE 20MG TAB 2021-12 2-15 00:00: 00 04-11 00:00 :00 Korina Chen MIRENA SYSTEM IUD 2021-12 2-15 00:00: 00 04-11 00:00 :00 No Dinesh Chen Dose Unknown 2021-12 2-15 00:00: 00 04-11 00:00 :00 No Dinesh Chen Dose Unknown 2021-12 2-15 00:00: 00 04-11 00:00 :00 Korina Chen LEVOTHYROXI N 150MCG 2021-12 1-11 00:00: 04-11 00:00 :00 No [id number] Dinesh Chen TAKE 1 TABLET BY MOUTH EVERY DAY IN THE MORNING 08-23 00:00: 00 No Dose Unknown 08-23 00:00: 00 No TAKE 1 TABLET BY MOUTH EVERY DAY IN THE MORNING 08-23 00:00: 00 04-11 00:00 :00 No Dinesh Chen Dose Unknown 07-24 00:00: 00 Yes Dinesh Chen METRONIDAZO LE 500MG 07-24 00:00: 00 Yes [id number] Dinesh Chen Dose Unknown 07-24 00:00: 00 No Dose Unknown 07-24 00:00: 00 No TAKE 1 TABLET BY MOUTH EVERY DAY IN THE MORNING 07-19 00:00: 00 Yes Dinesh Chen TAKE 1 TABLET BY MOUTH EVERY DAY IN THE MORNING 07-19 00:00: 00 No TAKE 1 TABLET BY MOUTH EVERY DAY IN THE MORNING 07-19 00:00: 00 No TAKE 1 CAPSULE BY MOUTH TWICE A DAY 0 8- 00:00: 00 Yes 100 Dinesh Chen TAKE 1 CAPSULE BY MOUTH TWICE A DAY 0 8-09 00:00: 00 No 100 TAKE 1 CAPSULE BY MOUTH TWICE A DAY 0 8-09 00:00: 00 No 100 &lt 2022-0 8-06 00:00: 00 Yes Dinesh Chen &lt 2-0 8-06 00:00: 00 Yes Dinesh Chen &lt 2022-0 8-06 00:00: 00 No &lt 2022-0 8-06 00:00: 00 No &lt 2022-0 8-06 00:00: 00 No &lt 2022-0 8-06 00:00: 00 No &lt 2022-0 7-20 00:00: 00 Yes 100 Dinesh Chen &lt 2-0 7-20 00:00: 00 No 100 &lt 2022-0 7-20 00:00: 00 No 100 INHALE 2 PUFFS EVERY 6 (SIX) HOURS NEEDED FOR WHEEZING, SHORTNESS OF BREATH OR CHEST TIGHTNESS. 2021-0 7-14 00:00: 00 Yes Dinesh Chen TAKE 1 TABLET BY MOUTH EVERY DAY 2021-0 14 00:00: 00 Yes 150 Dinesh Chen &lt 2021-0 -14 00:00: 00 Yes Dinesh Chen &lt 2-0 14 00:00: 00 Yes 100 Dinesh Chen TAKE 1 TABLET BY MOUTH TWICE A DAY 2021-0 06-13 00:00: 00 Yes 20 Dinesh Chen &lt 2021-0 06-13 00:00: 00 Yes Dinesh Chen &lt 2021-0 06-13 00:00: 00 Yes 20 Dinesh Chen Dose Unknown 0 06-13 00:00: 00 Yes Dinesh Chen INHALE 2 PUFFS EVERY 6 (SIX) HOURS NEEDED FOR WHEEZING, SHORTNESS OF BREATH OR CHEST TIGHTNESS. 2021-0 06-13 00:00: 00 No TAKE 1 TABLET BY MOUTH EVERY DAY 2021-0 06-13 00:00: 00 No 150 &lt 2021-0 14 00:00: 00 No &lt 2021-0 06-13 00:00: 00 No 100 TAKE 1 TABLET BY MOUTH TWICE A DAY 0 06-13 00:00: 00 No 20 &lt 2021-0 06-13 00:00: 00 No &lt 2-0 06-13 00:00: 00 No 20 Dose Unknown 0 06-13 00:00: 00 No INHALE 2 PUFFS EVERY 6 (SIX) HOURS NEEDED FOR WHEEZING, SHORTNESS OF BREATH OR CHEST TIGHTNESS. 0 06-13 00:00: 00 No TAKE 1 TABLET BY MOUTH EVERY DAY 2021-0 14 00:00: 00 No 150 &lt 2021-0 14 00:00: 00 No &lt 2-0 14 00:00: 00 No 100 TAKE 1 TABLET BY MOUTH TWICE A DAY 2021-0 14 00:00: 00 No 20 &lt 2-0 -14 00:00: 00 No &lt 2-0 14 00:00: 00 No 20 Dose Unknown 0 06-13 00:00: 00 No &lt 2-0 7- 00:00: 00 Yes Dinesh Chen &lt 2021-0 06-12 00:00: 00 No &lt 06-12 00:00: 00 No MARY LEVOTHYROXI NE SODIUM 175MCG 06-11 00:00: 00 Yes [id number] Dinesh Chen TAKE 1 TABLET BY MOUTH TWICE A DAY 06-06 00:00: 00 Yes 20 Dinesh Chen TAKE 1 TABLET BY MOUTH EVERY DAY 06-06 00:00: 00 Yes 150 Dinesh Chen TAKE 1 TABLET BY MOUTH TWICE A DAY 06-06 00:00: 00 No 20 TAKE 1 TABLET BY MOUTH EVERY DAY 06-06 00:00: 00 No 150 TAKE 1 TABLET BY MOUTH TWICE A DAY 06-06 00:00: 00 No 20 TAKE 1 TABLET BY MOUTH EVERY DAY 06-06 00:00: 00 No 150 INHALE 2 PUFFS EVERY 6 (SIX) HOURS NEEDED FOR WHEEZING, SHORTNESS OF BREATH OR CHEST TIGHTNESS. 06-04 00:00: 00 Yes Dinesh Chen TAKE 1 CAPSULE BY MOUTH TWICE A DAY 06-04 00:00: 00 Yes 100 Dinesh Chen TAKE 1 TABLET BY MOUTH TWICE A DAY FOR 10 DAYS 06-04 00:00: 00 Yes Dinesh Chen INHALE 2 PUFFS EVERY 6 (SIX) HOURS NEEDED FOR WHEEZING, SHORTNESS OF BREATH OR CHEST TIGHTNESS. 06-04 00:00: 00 No TAKE 1 CAPSULE BY MOUTH TWICE A DAY 06-04 00:00: 00 No 100 TAKE 1 TABLET BY MOUTH TWICE A DAY FOR 10 DAYS 06-04 00:00: 00 No INHALE 2 PUFFS EVERY 6 (SIX) HOURS NEEDED FOR WHEEZING, SHORTNESS OF BREATH OR CHEST TIGHTNESS. 06-04 00:00: 00 No TAKE 1 CAPSULE BY MOUTH TWICE A DAY 06-04 00:00: 00 No 100 TAKE 1 TABLET BY MOUTH TWICE A DAY FOR 10 DAYS 06-04 00:00: 00 No &lt - 00:00: 00 Yes Dinesh Chen &lt 6 00:00: 00 No &lt 6-30 00:00: 00 No butalbital- acetaminoph en-caff 50-325-40 mg tablet 05-26 00:00: 00 10-06 00:00 :00 No [id number] 1{tbl} Take 1 tablet by mouth every 4 (four) hours as needed (headache) . [facility] docusate 100 mg capsule 05-26 00:00: 00 10-06 00:00 :00 No [id number] 100mg Take 1 capsule by mouth 2 (two) times daily. [facility] famotidine 20 mg tablet 05-26 00:00: 00 10-06 00:00 :00 No [id number] 20mg Take 1 tablet by mouth 2 (two) times daily. [facility] acetaminoph en 325 mg tablet 05-26 00:00: 00 05-27 04:59 :00 No [id number] 325mg Take 1 tablet by mouth every 6 (six) hours as needed for Pain (scale 1-3). [facility] HYDROcodone -acetaminop hen 5-325 mg tablet 05-26 00:00: 00 06-03 04:59 :00 No [id number] 1{tbl} Take 1 tablet by mouth every 6 (six) hours as needed for Pain (scale 7-10) for up to 7 days. Indication s: acute pain [facility] Dose Unknown 04-21 00:00: 00 Yes Dinesh Chen Dose Unknown 04-21 00:00: 00 No levothyroxi ne 175 mcg tablet 04-21 00:00: 00 No 1mcg Dose Unknown 04-03 00:00: 00 Yes Dinesh Chen Dose Unknown 04-03 00:00: 00 No Dose Unknown 04-03 00:00: 00 No TAKE 1 TABLET TWICE DAILY UNTIL FINISHED. 04-02 00:00: 00 Yes Dinesh Chen TAKE 1 TABLET TWICE DAILY UNTIL FINISHED. 04-02 00:00: 00 No metronidazo le 500 mg tablet 04-02 00:00: 00 No 1mg Dose Unknown 2022-0 4-09 00:00: 00 Yes Dinesh Chen Dose Unknown 2022-0 4-09 00:00: 00 Yes Dinesh Chen Dose Unknown 2022-0 4-09 00:00: 00 No Dose Unknown 2022-0 4-09 00:00: 00 No Dose Unknown 2022-0 4-09 00:00: 00 No Dose Unknown 2022-0 4-09 00:00: 00 No Dose Unknown 2022-0 4-08 00:00: 00 Yes Dinesh Chen Dose Unknown 2022-0 4-08 00:00: 00 Yes Dinesh Chen Dose Unknown 2022-0 4-08 00:00: 00 No Dose Unknown 2022-0 4-08 00:00: 00 No Dose Unknown 2022-0 4-08 00:00: 00 No Dose Unknown 2022-0 4-08 00:00: 00 No Dose Unknown 2022-0 4-05 00:00: 00 Yes Dinesh Chen Dose Unknown 2022-0 4-05 00:00: 00 Yes Dinesh Chen Dose Unknown 2022-0 4-05 00:00: 00 No Dose Unknown 2022-0 4-05 00:00: 00 No Dose Unknown 2022-0 4-05 00:00: 00 No Dose Unknown 2022-0 4-05 00:00: 00 No Dose Unknown 2022-0 3-08 00:00: 00 Yes Dinesh Chen Dose Unknown 2022-0 3-08 00:00: 00 Yes Dinesh Chen Dose Unknown 2022-0 3-08 00:00: 00 No Dose Unknown 2022-0 3-08 00:00: 00 No Dose Unknown 2022-0 3-08 00:00: 00 No Dose Unknown 2022-0 3-08 00:00: 00 No Dose Unknown 2022-0 3-07 00:00: 00 Yes Dinesh Chen Dose Unknown 2022-0 3-07 00:00: 00 No Mirena 20 mcg/24 hours (7 yrs) 52 mg intrauterin e device 2-0 3-07 00:00: 00 No 1(7 yrs) 52 mg albuterol 90 mcg/actuati on inhaler 2-0 2-20 00:00: 00 11- 00:00 :00 No [id number] 2{puff} Inhale 2 Puffs every 6 (six) hours as needed for Wheezing, Shortness of Breath or Chest tightness. [facility] Dose Unknown 2020-12 00:00: 00 Yes Dinesh Chen Dose Unknown 2020-12 00:00: 00 No Dose Unknown 2020-12 00:00: 00 No Diflucan 150 mg tablet 2020-12 00:00: 00 Yes 1mg Dinesh Chen Dose Unknown 2020-12 00:00: 00 Yes Dinesh Chen Dose Unknown 2020-12 00:00: 00 Yes Dinesh Chen Diflucan 150 mg tablet 2020-12 00:00: 00 No 1mg Dose Unknown 2020-12 00:00: 00 No Dose Unknown 2020-12 00:00: 00 No Diflucan 150 mg tablet 2020-12 00:00: 00 No 1mg Dose Unknown 2020-12 00:00: 00 No levothyroxi ne 200 mcg capsule 2020-12 00:00: 00 No 1mcg azithromyci n 250 mg tablet 2020-12 00:00: 00 10-06 00:00 :00 No [id number] 250mg Take 1 tablet by mouth daily. [facility] predniSONE 20 mg tablet 2020-12 00:00: 00 10-06 00:00 :00 No [id number] TAKE ONE TABLET BY MOUTH DAILY [facility] moxifloxaci n 0.5 % ophthalmic drops 2020-12 00:00: 00 10-06 00:00 :00 No [id number] 1[drp] Place 1 Drop in right eye 3 (three) times daily. [facility] acetaZOLAMI DE 250 mg tablet 2020-12 00:00: 00 10-06 00:00 :00 No 750mg Take 3 tablets by mouth in the morning and 3 tablets in the evening. [facility] levothyroxi ne 200 mcg tablet 2020-12 0-15 00:00: 00 10-06 00:00 :00 No [id number] 200ug Take 1 tablet by mouth every morning. [facility] acetaZOLAMI DE 250 mg tablet 05-03 00:00: 00 10-06 00:00 :00 No [id number] 500mg Take 2 tablets by mouth 2 (two) times daily. [facility] Cyclobenzap rine hydrochlori de 10 MG Oral Tablet [Flexeril] 08-09 05:17: 00 Yes 10 mg, PO, TID, PRN Muscle Spasm, X 5 day, # 15 tab, 0 Refill(s) Marcelino Cervantes Saline Flush 0.9% 08-09 03:20: 00 No Notes: (Same as: BD Posiflush) Marcelino Cervantes Levothyroxi ne Sodium 100 MCG Oral Tablet Levothyroxi ne Sodium 100 MCG Oral Tablet 07-09 09:49: 29 Yes GISELLE DANIELS M.D. QD TAKE 1 TABLET BY MOUTH DAILY DIRECTED. [facility] Acetaminoph en 325 MG / butalbital 50 MG / Caffeine 40 MG Oral Tablet [Fioricet] 05-24 21:24: 00 Yes 1 tab, PO, Q4H, Headache, # 30 tab, 0 Refill(s) Marcelino Cervantes NS 1000 mL 05-24 21:13: 00 No Special Instructio ns: Bolus Dose Marcelino Cervantes Morphine 05-24 20:27: 00 No 4 mg, Route: IVP, Drug form: INJ, ONCE, Dosing Weight 78.182, kg, Priority: STAT, Start date: 05/24/14 15:27:00, Stop date: 05/24/14 15:27:00 Marcelino Cervantes Zofran 05-24 19:21: 00 No 4 mg, Route: IVP, Drug form: INJ, ONCE, Dosing Weight 78.182, kg, Priority: STAT, Start date: 05/24/14 14:21:00, Stop date: 05/24/14 14:21:00 Marcelino Cervantes Reglan 05-24 19:20: 00 No 20 mg, Route: IVP, Drug form: INJ, ONCE, Dosing Weight 78.182, kg, Priority: STAT, Start date: 05/24/14 14:20:00, Stop date: 05/24/14 14:20:00 Marcelino Cervantes Immunizations Ordered Immunization Name Filled Immunization Name Date Status Comments Source TDAP 2021-02-07 00:00:00 Completed [facility] TDAP 2021-02-07 00:00:00 Completed [facility] TDAP 2021-02-07 00:00:00 Completed [facility] TDAP 2021-02-07 00:00:00 Completed [facility] TDAP 2021-02-07 00:00:00 Completed [facility] TDAP 2021-02-07 00:00:00 Completed [facility] TDAP 2021-02-07 00:00:00 Completed [facility] TDAP 2021-02-07 00:00:00 Completed [facility] TDAP 2021-02-07 00:00:00 Completed [facility] TDAP 2021-02-07 00:00:00 Completed [facility] TDAP 2021-02-07 00:00:00 Completed [facility] TDAP 2021-02-07 00:00:00 Completed [facility] TDAP 2021-02-07 00:00:00 Completed [facility] TDAP 2021-02-07 00:00:00 Completed [facility] Tdap Tdap 2021-02-07 00:00:00 Completed Dinesh Cehn TDAP (ADACEL) VACCINE 2019-08-26 00:00:00 Completed [facility] Influenza Virus Vaccine Quad .5 mL IM 6+ MO 2019-08-26 00:00:00 Completed [facility] TDAP (ADACEL) VACCINE 2019-08-26 00:00:00 Completed [facility] Influenza Virus Vaccine Quad .5 mL IM 6+ MO 2019-08-26 00:00:00 Completed [facility] TDAP (ADACEL) VACCINE 2019-08-26 00:00:00 Completed [facility] Influenza Virus Vaccine Quad .5 mL IM 6+ MO 2019-08-26 00:00:00 Completed [facility] TDAP (ADACEL) VACCINE 2019-08-26 00:00:00 Completed [facility] Influenza Virus Vaccine Quad .5 mL IM 6+ MO 2019-08-26 00:00:00 Completed [facility] TDAP (ADACEL) VACCINE 2019-08-26 00:00:00 Completed [facility] Influenza Virus Vaccine Quad .5 mL IM 6+ MO 2019-08-26 00:00:00 Completed [facility] TDAP (ADACEL) VACCINE 2019-08-26 00:00:00 Completed [facility] Influenza Virus Vaccine Quad .5 mL IM 6+ MO 2019-08-26 00:00:00 Completed [facility] TDAP (ADACEL) VACCINE 2019-08-26 00:00:00 Completed [facility] Influenza Virus Vaccine Quad .5 mL IM 6+ MO 2019-08-26 00:00:00 Completed [facility] TDAP (ADACEL) VACCINE 2019-08-26 00:00:00 Completed [facility] Influenza Virus Vaccine Quad .5 mL IM 6+ MO 2019-08-26 00:00:00 Completed [facility] TDAP (ADACEL) VACCINE 2019-08-26 00:00:00 Completed [facility] Influenza Virus Vaccine Quad .5 mL IM 6+ MO 2019-08-26 00:00:00 Completed [facility] TDAP (ADACEL) VACCINE 2019-08-26 00:00:00 Completed [facility] Influenza Virus Vaccine Quad .5 mL IM 6+ MO 2019-08-26 00:00:00 Completed [facility] TDAP (ADACEL) VACCINE 2019-08-26 00:00:00 Completed [facility] Influenza Virus Vaccine Quad .5 mL IM 6+ MO 2019-08-26 00:00:00 Completed [facility] TDAP (ADACEL) VACCINE 2019-08-26 00:00:00 Completed [facility] Influenza Virus Vaccine Quad .5 mL IM 6+ MO 2019-08-26 00:00:00 Completed [facility] TDAP (ADACEL) VACCINE 2019-08-26 00:00:00 Completed [facility] Influenza Virus Vaccine Quad .5 mL IM 6+ MO 2019-08-26 00:00:00 Completed [facility] TDAP (ADACEL) VACCINE 2019-08-26 00:00:00 Completed [facility] Influenza Virus Vaccine Quad .5 mL IM 6+ MO (FLUZONE/FLULAVAL/FL UARIX) 2019-08-26 00:00:00 Completed Influenza Virus Vaccine Quad IM 3+ YRS 2016-09-23 00:00:00 Completed [facility] Influenza Virus Vaccine Quad IM 3+ YRS 2016-09-23 00:00:00 Completed [facility] Influenza Virus Vaccine Quad IM 3+ YRS 2016-09-23 00:00:00 Completed [facility] Influenza Virus Vaccine Quad IM 3+ YRS 2016-09-23 00:00:00 Completed [facility] Influenza Virus Vaccine Quad IM 3+ YRS 2016-09-23 00:00:00 Completed [facility] Influenza Virus Vaccine Quad IM 3+ YRS 2016-09-23 00:00:00 Completed [facility] Influenza Virus Vaccine Quad IM 3+ YRS 2016-09-23 00:00:00 Completed [facility] Influenza Virus Vaccine Quad IM 3+ YRS 2016-09-23 00:00:00 Completed [facility] Influenza Virus Vaccine Quad IM 3+ YRS 2016-09-23 00:00:00 Completed [facility] Influenza Virus Vaccine Quad IM 3+ YRS 2016-09-23 00:00:00 Completed [facility] Influenza Virus Vaccine Quad IM 3+ YRS 2016-09-23 00:00:00 Completed [facility] Influenza Virus Vaccine Quad IM 3+ YRS 2016-09-23 00:00:00 Completed [facility] Influenza Virus Vaccine Quad IM 3+ YRS 2016-09-23 00:00:00 Completed [facility] Influenza Virus Vaccine Quad IM 3+ YRS 2016-09-23 00:00:00 Completed [facility] Meningococcal Polysaccharide (groups A, C, Y and W-135) conjugate vaccine (MCV4P) 2009-05-09 00:00:00 Completed [facility] Meningococcal Polysaccharide (groups A, C, Y and W-135) conjugate vaccine (MCV4P) 2009-05-09 00:00:00 Completed [facility] Meningococcal Polysaccharide (groups A, C, Y and W-135) conjugate vaccine (MCV4P) 2009-05-09 00:00:00 Completed [facility] Meningococcal Polysaccharide (groups A, C, Y and W-135) conjugate vaccine (MCV4P) 2009-05-09 00:00:00 Completed [facility] Meningococcal Polysaccharide (groups A, C, Y and W-135) conjugate vaccine (MCV4P) 2009-05-09 00:00:00 Completed [facility] Meningococcal Polysaccharide (groups A, C, Y and W-135) conjugate vaccine (MCV4P) 2009-05-09 00:00:00 Completed [facility] Meningococcal Polysaccharide (groups A, C, Y and W-135) conjugate vaccine (MCV4P) 2009-05-09 00:00:00 Completed [facility] Meningococcal Polysaccharide (groups A, C, Y and W-135) conjugate vaccine (MCV4P) 2009-05-09 00:00:00 Completed [facility] Meningococcal Polysaccharide (groups A, C, Y and W-135) conjugate vaccine (MCV4P) 2009-05-09 00:00:00 Completed [facility] Meningococcal Polysaccharide (groups A, C, Y and W-135) conjugate vaccine (MCV4P) 2009-05-09 00:00:00 Completed [facility] Meningococcal Polysaccharide (groups A, C, Y and W-135) conjugate vaccine (MCV4P) 2009-05-09 00:00:00 Completed [facility] Meningococcal Polysaccharide (groups A, C, Y and W-135) conjugate vaccine (MCV4P) 2009-05-09 00:00:00 Completed [facility] Meningococcal Polysaccharide (groups A, C, Y and W-135) conjugate vaccine (MCV4P) 2009-05-09 00:00:00 Completed [facility] Meningococcal Polysaccharide (groups A, C, Y and W-135) conjugate vaccine (MCV4P) 2009-05-09 00:00:00 Completed TDAP 2009-05-09 00:00:00 Completed [facility] meningococcal MCV4P meningococcal MCV4P 00:00:00 Completed Dinesh Chen Tdap Tdap 2009-05-09 00:00:00 Completed Dinesh Chen TDAP 2001-07-01 00:00:00 Completed [facility] MMR 2001-07-01 00:00:00 Completed [facility] Polio (IPV/OPV) 2001-07-01 00:00:00 Completed [facility] TDAP 2001-07-01 00:00:00 Completed [facility] MMR 2001-07-01 00:00:00 Completed [facility] Polio (IPV/OPV) 2001-07-01 00:00:00 Completed [facility] TDAP 2001-07-01 00:00:00 Completed [facility] MMR 2001-07-01 00:00:00 Completed [facility] Polio (IPV/OPV) 2001-07-01 00:00:00 Completed [facility] TDAP 2001-07-01 00:00:00 Completed [facility] MMR 2001-07-01 00:00:00 Completed [facility] Polio (IPV/OPV) 2001-07-01 00:00:00 Completed [facility] TDAP 2001-07-01 00:00:00 Completed [facility] MMR 2001-07-01 00:00:00 Completed [facility] Polio (IPV/OPV) 2001-07-01 00:00:00 Completed [facility] TDAP 2001-07-01 00:00:00 Completed [facility] MMR 2001-07-01 00:00:00 Completed [facility] Polio (IPV/OPV) 2001-07-01 00:00:00 Completed [facility] TDAP 2001-07-01 00:00:00 Completed [facility] MMR 2001-07-01 00:00:00 Completed [facility] Polio (IPV/OPV) 2001-07-01 00:00:00 Completed [facility] TDAP 2001-07-01 00:00:00 Completed [facility] MMR 2001-07-01 00:00:00 Completed [facility] Polio (IPV/OPV) 2001-07-01 00:00:00 Completed [facility] TDAP 2001-07-01 00:00:00 Completed [facility] MMR 2001-07-01 00:00:00 Completed [facility] Polio (IPV/OPV) 2001-07-01 00:00:00 Completed [facility] TDAP 2001-07-01 00:00:00 Completed [facility] MMR 2001-07-01 00:00:00 Completed [facility] Polio (IPV/OPV) 2001-07-01 00:00:00 Completed [facility] TDAP 2001-07-01 00:00:00 Completed [facility] MMR 2001-07-01 00:00:00 Completed [facility] Polio (IPV/OPV) 2001-07-01 00:00:00 Completed [facility] TDAP 2001-07-01 00:00:00 Completed [facility] MMR 2001-07-01 00:00:00 Completed [facility] Polio (IPV/OPV) 2001-07-01 00:00:00 Completed [facility] TDAP 2001-07-01 00:00:00 Completed [facility] MMR 2001-07-01 00:00:00 Completed [facility] Polio (IPV/OPV) 2001-07-01 00:00:00 Completed [facility] TDAP 2001-07-01 00:00:00 Completed MMR 2001-07-01 00:00:00 Completed Polio (IPV/OPV) 2001-07-01 00:00:00 Completed DTaP, Unspecified Formulation 2001-07-01 00:00:00 Completed IPV 2001-07-01 00:00:00 Completed MMR MMR 2001-07-01 00:00:00 Completed Dinesh Chen IPV IPV 2001-07-01 00:00:00 Completed Dinesh Chen DTaP, unspecified formul DTaP, unspecified formul 2001-07-01 00:00:00 Completed Dinesh Chen Tdap Tdap 2001-07-01 00:00:00 Completed Dinesh Chen Varicella (varivax)(chicken pox) 1999-04-08 00:00:00 Completed [facility] Varicella (varivax)(chicken pox) 1999-04-08 00:00:00 Completed [facility] Varicella (varivax)(chicken pox) 1999-04-08 00:00:00 Completed [facility] Varicella (varivax)(chicken pox) 1999-04-08 00:00:00 Completed [facility] Varicella (varivax)(chicken pox) 1999-04-08 00:00:00 Completed [facility] Varicella (varivax)(chicken pox) 1999-04-08 00:00:00 Completed [facility] Varicella (varivax)(chicken pox) 1999-04-08 00:00:00 Completed [facility] Varicella (varivax)(chicken pox) 1999-04-08 00:00:00 Completed [facility] Varicella (varivax)(chicken pox) 1999-04-08 00:00:00 Completed [facility] Varicella (varivax)(chicken pox) 1999-04-08 00:00:00 Completed [facility] Varicella (varivax)(chicken pox) 1999-04-08 00:00:00 Completed [facility] Varicella (varivax)(chicken pox) 1999-04-08 00:00:00 Completed [facility] Varicella (varivax)(chicken pox) 1999-04-08 00:00:00 Completed [facility] Varicella (varivax)(chicken pox) 1999-04-08 00:00:00 Completed varicella varicella 1999-04-08 00:00:00 Completed Dinesh Chen TDAP 1998-06-14 00:00:00 Completed [facility] HIB 4 Dose Schedule 1998-06-14 00:00:00 Completed [facility] MMR 1998-06-14 00:00:00 Completed [facility] TDAP 1998-06-14 00:00:00 Completed [facility] HIB 4 Dose Schedule 1998-06-14 00:00:00 Completed [facility] MMR 1998-06-14 00:00:00 Completed [facility] TDAP 1998-06-14 00:00:00 Completed [facility] HIB 4 Dose Schedule 1998-06-14 00:00:00 Completed [facility] MMR 1998-06-14 00:00:00 Completed [facility] TDAP 1998-06-14 00:00:00 Completed [facility] HIB 4 Dose Schedule 1998-06-14 00:00:00 Completed [facility] MMR 1998-06-14 00:00:00 Completed [facility] TDAP 1998-06-14 00:00:00 Completed [facility] HIB 4 Dose Schedule 1998-06-14 00:00:00 Completed [facility] MMR 1998-06-14 00:00:00 Completed [facility] TDAP 1998-06-14 00:00:00 Completed [facility] HIB 4 Dose Schedule 1998-06-14 00:00:00 Completed [facility] MMR 1998-06-14 00:00:00 Completed [facility] TDAP 1998-06-14 00:00:00 Completed [facility] HIB 4 Dose Schedule 1998-06-14 00:00:00 Completed [facility] MMR 1998-06-14 00:00:00 Completed [facility] TDAP 1998-06-14 00:00:00 Completed [facility] HIB 4 Dose Schedule 1998-06-14 00:00:00 Completed [facility] MMR 1998-06-14 00:00:00 Completed [facility] TDAP 1998-06-14 00:00:00 Completed [facility] HIB 4 Dose Schedule 1998-06-14 00:00:00 Completed [facility] MMR 1998-06-14 00:00:00 Completed [facility] TDAP 1998-06-14 00:00:00 Completed [facility] HIB 4 Dose Schedule 1998-06-14 00:00:00 Completed [facility] MMR 1998-06-14 00:00:00 Completed [facility] TDAP 1998-06-14 00:00:00 Completed [facility] HIB 4 Dose Schedule 1998-06-14 00:00:00 Completed [facility] MMR 1998-06-14 00:00:00 Completed [facility] TDAP 1998-06-14 00:00:00 Completed [facility] HIB 4 Dose Schedule 1998-06-14 00:00:00 Completed [facility] MMR 1998-06-14 00:00:00 Completed [facility] TDAP 1998-06-14 00:00:00 Completed [facility] HIB 4 Dose Schedule 1998-06-14 00:00:00 Completed [facility] MMR 1998-06-14 00:00:00 Completed [facility] TDAP 1998-06-14 00:00:00 Completed HIB 4 Dose Schedule 1998-06-14 00:00:00 Completed MMR 1998-06-14 00:00:00 Completed DTaP, Unspecified Formulation 1998-06-14 00:00:00 Completed Hib-HbOC 1998-06-14 00:00:00 Completed Hib (HbOC) Hib (HbOC) 1998-06-14 00:00:00 Completed Dinesh Vinson Gustavo MMR MMR 1998-06-14 00:00:00 Completed Dinesh Chen DTaP, unspecified formul DTaP, unspecified formul 1998-06-14 00:00:00 Completed Dinesh Chen Tdap Tdap 1998-06-14 00:00:00 Completed Dinesh Chen TDAP 1998-03-29 00:00:00 Completed [facility] HIB 4 Dose Schedule 1998-03-29 00:00:00 Completed [facility] Hep B, Adol or Pedi Dosage 1998-03-29 00:00:00 Completed [facility] Polio (IPV/OPV) 1998-03-29 00:00:00 Completed [facility] TDAP 1998-03-29 00:00:00 Completed [facility] HIB 4 Dose Schedule 1998-03-29 00:00:00 Completed [facility] Hep B, Adol or Pedi Dosage 1998-03-29 00:00:00 Completed [facility] Polio (IPV/OPV) 1998-03-29 00:00:00 Completed [facility] TDAP 1998-03-29 00:00:00 Completed [facility] HIB 4 Dose Schedule 1998-03-29 00:00:00 Completed [facility] Hep B, Adol or Pedi Dosage 1998-03-29 00:00:00 Completed [facility] Polio (IPV/OPV) 1998-03-29 00:00:00 Completed [facility] TDAP 1998-03-29 00:00:00 Completed [facility] HIB 4 Dose Schedule 1998-03-29 00:00:00 Completed [facility] Hep B, Adol or Pedi Dosage 1998-03-29 00:00:00 Completed [facility] Polio (IPV/OPV) 1998-03-29 00:00:00 Completed [facility] TDAP 1998-03-29 00:00:00 Completed [facility] HIB 4 Dose Schedule 1998-03-29 00:00:00 Completed [facility] Hep B, Adol or Pedi Dosage 1998-03-29 00:00:00 Completed [facility] Polio (IPV/OPV) 1998-03-29 00:00:00 Completed [facility] TDAP 1998-03-29 00:00:00 Completed [facility] HIB 4 Dose Schedule 1998-03-29 00:00:00 Completed [facility] Hep B, Adol or Pedi Dosage 1998-03-29 00:00:00 Completed [facility] Polio (IPV/OPV) 1998-03-29 00:00:00 Completed [facility] TDAP 1998-03-29 00:00:00 Completed [facility] HIB 4 Dose Schedule 1998-03-29 00:00:00 Completed [facility] Hep B, Adol or Pedi Dosage 1998-03-29 00:00:00 Completed [facility] Polio (IPV/OPV) 1998-03-29 00:00:00 Completed [facility] TDAP 1998-03-29 00:00:00 Completed [facility] HIB 4 Dose Schedule 1998-03-29 00:00:00 Completed [facility] Hep B, Adol or Pedi Dosage 1998-03-29 00:00:00 Completed [facility] Polio (IPV/OPV) 1998-03-29 00:00:00 Completed [facility] TDAP 1998-03-29 00:00:00 Completed [facility] HIB 4 Dose Schedule 1998-03-29 00:00:00 Completed [facility] Hep B, Adol or Pedi Dosage 1998-03-29 00:00:00 Completed [facility] Polio (IPV/OPV) 1998-03-29 00:00:00 Completed [facility] TDAP 1998-03-29 00:00:00 Completed [facility] HIB 4 Dose Schedule 1998-03-29 00:00:00 Completed [facility] Hep B, Adol or Pedi Dosage 1998-03-29 00:00:00 Completed [facility] Polio (IPV/OPV) 1998-03-29 00:00:00 Completed [facility] TDAP 1998-03-29 00:00:00 Completed [facility] HIB 4 Dose Schedule 1998-03-29 00:00:00 Completed [facility] Hep B, Adol or Pedi Dosage 1998-03-29 00:00:00 Completed [facility] Polio (IPV/OPV) 1998-03-29 00:00:00 Completed [facility] TDAP 1998-03-29 00:00:00 Completed [facility] HIB 4 Dose Schedule 1998-03-29 00:00:00 Completed [facility] Hep B, Adol or Pedi Dosage 1998-03-29 00:00:00 Completed [facility] Polio (IPV/OPV) 1998-03-29 00:00:00 Completed [facility] TDAP 1998-03-29 00:00:00 Completed [facility] HIB 4 Dose Schedule 1998-03-29 00:00:00 Completed [facility] Hep B, Adol or Pedi Dosage 1998-03-29 00:00:00 Completed [facility] Polio (IPV/OPV) 1998-03-29 00:00:00 Completed [facility] TDAP 1998-03-29 00:00:00 Completed HIB 4 Dose Schedule 1998-03-29 00:00:00 Completed Hep B, Adol or Pedi Dosage 1998-03-29 00:00:00 Completed Polio (IPV/OPV) 1998-03-29 00:00:00 Completed DTaP, Unspecified Formulation 1998-03-29 00:00:00 Completed Hib-HbOC 1998-03-29 00:00:00 Completed IPV 1998-03-29 00:00:00 Completed Hib (HbOC) Hib (HbOC) 1998-03-29 00:00:00 Completed Dinesh Chen IPV IPV 1998-03-29 00:00:00 Completed Dinesh Chen DTaP, unspecified formul DTaP, unspecified formul 1998-03-29 00:00:00 Completed Dinesh Chen Tdap Tdap 1998-03-29 00:00:00 Completed Dinesh Chen Hep B, adolescent or ped Hep B, adolescent or ped 1998-03-29 00:00:00 Completed Dinesh Chen TDAP 1997 00:00:00 Completed [facility] HIB 4 Dose Schedule 1997 00:00:00 Completed [facility] Polio (IPV/OPV) 1997 00:00:00 Completed [facility] TDAP 1997 00:00:00 Completed [facility] HIB 4 Dose Schedule 1997 00:00:00 Completed [facility] Polio (IPV/OPV) 1997 00:00:00 Completed [facility] TDAP 1997 00:00:00 Completed [facility] HIB 4 Dose Schedule 1997 00:00:00 Completed [facility] Polio (IPV/OPV) 1997 00:00:00 Completed [facility] TDAP 1997 00:00:00 Completed [facility] HIB 4 Dose Schedule 1997 00:00:00 Completed [facility] Polio (IPV/OPV) 1997 00:00:00 Completed [facility] TDAP 1997 00:00:00 Completed [facility] HIB 4 Dose Schedule 1997 00:00:00 Completed [facility] Polio (IPV/OPV) 1997 00:00:00 Completed [facility] TDAP 1997 00:00:00 Completed [facility] HIB 4 Dose Schedule 1997 00:00:00 Completed [facility] Polio (IPV/OPV) 1997 00:00:00 Completed [facility] TDAP 1997 00:00:00 Completed [facility] HIB 4 Dose Schedule 1997 00:00:00 Completed [facility] Polio (IPV/OPV) 1997 00:00:00 Completed [facility] TDAP 1997 00:00:00 Completed [facility] HIB 4 Dose Schedule 1997 00:00:00 Completed [facility] Polio (IPV/OPV) 1997 00:00:00 Completed [facility] TDAP 1997 00:00:00 Completed [facility] HIB 4 Dose Schedule 1997 00:00:00 Completed [facility] Polio (IPV/OPV) 1997 00:00:00 Completed [facility] TDAP 1997 00:00:00 Completed [facility] HIB 4 Dose Schedule 1997 00:00:00 Completed [facility] Polio (IPV/OPV) 1997 00:00:00 Completed [facility] TDAP 1997 00:00:00 Completed [facility] HIB 4 Dose Schedule 1997 00:00:00 Completed [facility] Polio (IPV/OPV) 1997 00:00:00 Completed [facility] TDAP 1997 00:00:00 Completed [facility] HIB 4 Dose Schedule 1997 00:00:00 Completed [facility] Polio (IPV/OPV) 1997 00:00:00 Completed [facility] TDAP 1997 00:00:00 Completed [facility] HIB 4 Dose Schedule 1997 00:00:00 Completed [facility] Polio (IPV/OPV) 1997 00:00:00 Completed [facility] TDAP 1997 00:00:00 Completed HIB 4 Dose Schedule 1997 00:00:00 Completed Polio (IPV/OPV) 1997 00:00:00 Completed DTaP, Unspecified Formulation 1997 00:00:00 Completed Hib-HbOC 1997 00:00:00 Completed IPV 1997 00:00:00 Completed Tdap Tdap 1997 00:00:00 Completed Dinesh Chen Hib (HbOC) Hib (HbOC) 1997 00:00:00 Completed Dinesh Chen IPV IPV 1997 00:00:00 Completed Dinesh Chen DTaP, unspecified formul DTaP, unspecified formul 1997 00:00:00 Completed Dinesh Chen TDAP 1997 00:00:00 Completed [facility] HIB 4 Dose Schedule 1997 00:00:00 Completed [facility] Hep B, Adol or Pedi Dosage 1997 00:00:00 Completed [facility] Polio (IPV/OPV) 1997 00:00:00 Completed [facility] TDAP 1997 00:00:00 Completed [facility] HIB 4 Dose Schedule 1997 00:00:00 Completed [facility] Hep B, Adol or Pedi Dosage 1997 00:00:00 Completed [facility] Polio (IPV/OPV) 1997 00:00:00 Completed [facility] TDAP 1997 00:00:00 Completed [facility] HIB 4 Dose Schedule 1997 00:00:00 Completed [facility] Hep B, Adol or Pedi Dosage 1997 00:00:00 Completed [facility] Polio (IPV/OPV) 1997 00:00:00 Completed [facility] TDAP 1997 00:00:00 Completed [facility] HIB 4 Dose Schedule 1997 00:00:00 Completed [facility] Hep B, Adol or Pedi Dosage 1997 00:00:00 Completed [facility] Polio (IPV/OPV) 1997 00:00:00 Completed [facility] TDAP 1997 00:00:00 Completed [facility] HIB 4 Dose Schedule 1997 00:00:00 Completed [facility] Hep B, Adol or Pedi Dosage 1997 00:00:00 Completed [facility] Polio (IPV/OPV) 1997 00:00:00 Completed [facility] TDAP 1997 00:00:00 Completed [facility] HIB 4 Dose Schedule 1997 00:00:00 Completed [facility] Hep B, Adol or Pedi Dosage 1997 00:00:00 Completed [facility] Polio (IPV/OPV) 1997 00:00:00 Completed [facility] TDAP 1997 00:00:00 Completed [facility] HIB 4 Dose Schedule 1997 00:00:00 Completed [facility] Hep B, Adol or Pedi Dosage 1997 00:00:00 Completed [facility] Polio (IPV/OPV) 1997 00:00:00 Completed [facility] TDAP 1997 00:00:00 Completed [facility] HIB 4 Dose Schedule 1997 00:00:00 Completed [facility] Hep B, Adol or Pedi Dosage 1997 00:00:00 Completed [facility] Polio (IPV/OPV) 1997 00:00:00 Completed [facility] TDAP 1997 00:00:00 Completed [facility] HIB 4 Dose Schedule 1997 00:00:00 Completed [facility] Hep B, Adol or Pedi Dosage 1997 00:00:00 Completed [facility] Polio (IPV/OPV) 1997 00:00:00 Completed [facility] TDAP 1997 00:00:00 Completed [facility] HIB 4 Dose Schedule 1997 00:00:00 Completed [facility] Hep B, Adol or Pedi Dosage 1997 00:00:00 Completed [facility] Polio (IPV/OPV) 1997 00:00:00 Completed [facility] TDAP 1997 00:00:00 Completed [facility] HIB 4 Dose Schedule 1997 00:00:00 Completed [facility] Hep B, Adol or Pedi Dosage 1997 00:00:00 Completed [facility] Polio (IPV/OPV) 1997 00:00:00 Completed [facility] TDAP 1997 00:00:00 Completed [facility] HIB 4 Dose Schedule 1997 00:00:00 Completed [facility] Hep B, Adol or Pedi Dosage 1997 00:00:00 Completed [facility] Polio (IPV/OPV) 1997 00:00:00 Completed [facility] TDAP 1997 00:00:00 Completed [facility] HIB 4 Dose Schedule 1997 00:00:00 Completed [facility] Hep B, Adol or Pedi Dosage 1997 00:00:00 Completed [facility] Polio (IPV/OPV) 1997 00:00:00 Completed [facility] TDAP 1997 00:00:00 Completed [facility] HIB 4 Dose Schedule 1997 00:00:00 Completed Hep B, Adol or Pedi Dosage 1997 00:00:00 Completed Polio (IPV/OPV) 1997 00:00:00 Completed DTaP, Unspecified Formulation 1997 00:00:00 Completed Hib-HbOC 1997 00:00:00 Completed IPV 1997 00:00:00 Completed Hep B, adolescent or ped Hep B, adolescent or ped 1997 00:00:00 Completed Dinesh Chen Hib (HbOC) Hib (HbOC) 1997 00:00:00 Completed Dinesh Chen IPV IPV 1997 00:00:00 Completed Dinesh Chen DTaP, unspecified formul DTaP, unspecified formul 1997 00:00:00 Completed Dinesh Chen Tdap Tdap 1997 00:00:00 Completed Dinesh Chen Hep B, Adol or Pedi Dosage 1997 00:00:00 Completed [facility] Hep B, Adol or Pedi Dosage 1997 00:00:00 Completed [facility] Hep B, Adol or Pedi Dosage 1997 00:00:00 Completed [facility] Hep B, Adol or Pedi Dosage 1997 00:00:00 Completed [facility] Hep B, Adol or Pedi Dosage 1997 00:00:00 Completed [facility] Hep B, Adol or Pedi Dosage 1997 00:00:00 Completed [facility] Hep B, Adol or Pedi Dosage 1997 00:00:00 Completed [facility] Hep B, Adol or Pedi Dosage 1997 00:00:00 Completed [facility] Hep B, Adol or Pedi Dosage 1997 00:00:00 Completed [facility] Hep B, Adol or Pedi Dosage 1997 00:00:00 Completed [facility] Hep B, Adol or Pedi Dosage 1997 00:00:00 Completed [facility] Hep B, Adol or Pedi Dosage 1997 00:00:00 Completed [facility] Hep B, Adol or Pedi Dosage 1997 00:00:00 Completed [facility] Hep B, Adol or Pedi Dosage 1997 00:00:00 Completed Hep B, adolescent or ped Hep B, adolescent or ped 1997 00:00:00 Completed Dinesh Chen Influenza Virus Vaccine Quad IM 3+ YRS Unknown Completed [facility] TDAP (ADACEL) VACCINE Unknown Completed [facility] HIB 4 Dose Schedule Unknown Completed [facility] Hep B, Adol or Pedi Dosage Unknown Completed [facility] Meningococcal Polysaccharide (groups A, C, Y and W-135) conjugate vaccine (MCV4P) Unknown Completed [facility] MMR Unknown Completed [facility] Polio (IPV/OPV) Unknown Completed [facility] Varicella (varivax)(chicken pox) Unknown Completed [facility] Influenza Virus Vaccine Quad IM 3+ YRS Unknown Completed [facility] TDAP (ADACEL) VACCINE Unknown Completed [facility] HIB 4 Dose Schedule Unknown Completed [facility] Hep B, Adol or Pedi Dosage Unknown Completed [facility] Meningococcal Polysaccharide (groups A, C, Y and W-135) conjugate vaccine (MCV4P) Unknown Completed [facility] MMR Unknown Completed [facility] Polio (IPV/OPV) Unknown Completed [facility] Varicella (varivax)(chicken pox) Unknown Completed [facility] Influenza Virus Vaccine Quad IM 3+ YRS Unknown Completed [facility] TDAP (ADACEL) VACCINE Unknown Completed [facility] HIB 4 Dose Schedule Unknown Completed [facility] Hep B, Adol or Pedi Dosage Unknown Completed [facility] Meningococcal Polysaccharide (groups A, C, Y and W-135) conjugate vaccine (MCV4P) Unknown Completed [facility] MMR Unknown Completed [facility] Polio (IPV/OPV) Unknown Completed [facility] Varicella (varivax)(chicken pox) Unknown Completed [facility] Influenza Virus Vaccine Quad IM 3+ YRS Unknown Completed [facility] TDAP (ADACEL) VACCINE Unknown Completed [facility] HIB 4 Dose Schedule Unknown Completed [facility] Hep B, Adol or Pedi Dosage Unknown Completed [facility] Meningococcal Polysaccharide (groups A, C, Y and W-135) conjugate vaccine (MCV4P) Unknown Completed [facility] MMR Unknown Completed [facility] Polio (IPV/OPV) Unknown Completed [facility] Varicella (varivax)(chicken pox) Unknown Completed [facility] Influenza Virus Vaccine Quad IM 3+ YRS Unknown Completed [facility] TDAP (ADACEL) VACCINE Unknown Completed [facility] HIB 4 Dose Schedule Unknown Completed [facility] Hep B, Adol or Pedi Dosage Unknown Completed [facility] Meningococcal Polysaccharide (groups A, C, Y and W-135) conjugate vaccine (MCV4P) Unknown Completed [facility] MMR Unknown Completed [facility] Polio (IPV/OPV) Unknown Completed [facility] Varicella (varivax)(chicken pox) Unknown Completed [facility] Influenza Virus Vaccine Quad IM 3+ YRS Unknown Completed [facility] TDAP (ADACEL) VACCINE Unknown Completed [facility] HIB 4 Dose Schedule Unknown Completed [facility] Hep B, Adol or Pedi Dosage Unknown Completed [facility] Meningococcal Polysaccharide (groups A, C, Y and W-135) conjugate vaccine (MCV4P) Unknown Completed [facility] MMR Unknown Completed [facility] Polio (IPV/OPV) Unknown Completed [facility] Varicella (varivax)(chicken pox) Unknown Completed [facility] Influenza Virus Vaccine Quad IM 3+ YRS Unknown Completed [facility] TDAP (ADACEL) VACCINE Unknown Completed [facility] HIB 4 Dose Schedule Unknown Completed [facility] Hep B, Adol or Pedi Dosage Unknown Completed [facility] Meningococcal Polysaccharide (groups A, C, Y and W-135) conjugate vaccine (MCV4P) Unknown Completed [facility] MMR Unknown Completed [facility] Polio (IPV/OPV) Unknown Completed [facility] Varicella (varivax)(chicken pox) Unknown Completed [facility] Influenza Virus Vaccine Quad IM 3+ YRS Unknown Completed [facility] TDAP (ADACEL) VACCINE Unknown Completed [facility] HIB 4 Dose Schedule Unknown Completed [facility] Hep B, Adol or Pedi Dosage Unknown Completed [facility] Meningococcal Polysaccharide (groups A, C, Y and W-135) conjugate vaccine (MCV4P) Unknown Completed [facility] MMR Unknown Completed [facility] Polio (IPV/OPV) Unknown Completed [facility] Varicella (varivax)(chicken pox) Unknown Completed [facility] Influenza Virus Vaccine Quad IM 3+ YRS Unknown Completed [facility] TDAP (ADACEL) VACCINE Unknown Completed [facility] HIB 4 Dose Schedule Unknown Completed [facility] Hep B, Adol or Pedi Dosage Unknown Completed [facility] Meningococcal Polysaccharide (groups A, C, Y and W-135) conjugate vaccine (MCV4P) Unknown Completed [facility] MMR Unknown Completed [facility] Polio (IPV/OPV) Unknown Completed [facility] Varicella (varivax)(chicken pox) Unknown Completed [facility] Influenza Virus Vaccine Quad IM 3+ YRS Unknown Completed [facility] TDAP (ADACEL) VACCINE Unknown Completed [facility] HIB 4 Dose Schedule Unknown Completed [facility] Hep B, Adol or Pedi Dosage Unknown Completed [facility] Meningococcal Polysaccharide (groups A, C, Y and W-135) conjugate vaccine (MCV4P) Unknown Completed [facility] MMR Unknown Completed [facility] Polio (IPV/OPV) Unknown Completed [facility] Varicella (varivax)(chicken pox) Unknown Completed [facility] Influenza Virus Vaccine Quad IM 3+ YRS Unknown Completed [facility] TDAP (ADACEL) VACCINE Unknown Completed [facility] HIB 4 Dose Schedule Unknown Completed [facility] Hep B, Adol or Pedi Dosage Unknown Completed [facility] Meningococcal Polysaccharide (groups A, C, Y and W-135) conjugate vaccine (MCV4P) Unknown Completed [facility] MMR Unknown Completed [facility] Polio (IPV/OPV) Unknown Completed [facility] Varicella (varivax)(chicken pox) Unknown Completed [facility] Influenza Virus Vaccine Quad IM 3+ YRS Unknown Completed [facility] TDAP (ADACEL) VACCINE Unknown Completed [facility] HIB 4 Dose Schedule Unknown Completed [facility] Hep B, Adol or Pedi Dosage Unknown Completed [facility] Meningococcal Polysaccharide (groups A, C, Y and W-135) conjugate vaccine (MCV4P) Unknown Completed [facility] MMR Unknown Completed [facility] Polio (IPV/OPV) Unknown Completed [facility] Varicella (varivax)(chicken pox) Unknown Completed [facility] Meningococcal Polysaccharide (groups A, C, Y and W-135) conjugate vaccine (MCV4P) Unknown Completed [facility] Varicella (varivax)(chicken pox) Unknown Completed [facility] Influenza Virus Vaccine Quad IM 3+ YRS Unknown Completed [facility] TDAP (ADACEL) VACCINE Unknown Completed [facility] HIB 4 Dose Schedule Unknown Completed [facility] Hep B, Adol or Pedi Dosage Unknown Completed [facility] Meningococcal Polysaccharide (groups A, C, Y and W-135) conjugate vaccine (MCV4P) Unknown Completed [facility] MMR Unknown Completed [facility] Polio (IPV/OPV) Unknown Completed [facility] Varicella (varivax)(chicken pox) Unknown Completed [facility] Meningococcal Polysaccharide (groups A, C, Y and W-135) conjugate vaccine (MCV4P) Unknown Completed [facility] Varicella (varivax)(chicken pox) Unknown Completed [facility] Influenza Virus Vaccine Quad IM 3+ YRS Unknown Completed [facility] TDAP (ADACEL) VACCINE Unknown Completed [facility] HIB 4 Dose Schedule Unknown Completed [facility] Hep B, Adol or Pedi Dosage Unknown Completed [facility] MMR Unknown Completed [facility] Polio (IPV/OPV) Unknown Completed [facility] Influenza Virus Vaccine Quad IM 3+ YRS Unknown Completed [facility] TDAP (ADACEL) VACCINE Unknown Completed [facility] HIB 4 Dose Schedule Unknown Completed [facility] Hep B, Adol or Pedi Dosage Unknown Completed [facility] MMR Unknown Completed [facility] Polio (IPV/OPV) Unknown Completed [facility] Meningococcal Polysaccharide (groups A, C, Y and W-135) conjugate vaccine (MCV4P) Unknown Completed [facility] Varicella (varivax)(chicken pox) Unknown Completed [facility] Meningococcal Polysaccharide (groups A, C, Y and W-135) conjugate vaccine (MCV4P) Unknown Completed [facility] Varicella (varivax)(chicken pox) Unknown Completed [facility] Influenza Virus Vaccine Quad IM 3+ YRS Unknown Completed [facility] TDAP (ADACEL) VACCINE Unknown Completed [facility] HIB 4 Dose Schedule Unknown Completed [facility] Hep B, Adol or Pedi Dosage Unknown Completed [facility] MMR Unknown Completed [facility] Polio (IPV/OPV) Unknown Completed [facility] Influenza Virus Vaccine Quad IM 3+ YRS Unknown Completed [facility] TDAP (ADACEL) VACCINE Unknown Completed [facility] HIB 4 Dose Schedule Unknown Completed [facility] Hep B, Adol or Pedi Dosage Unknown Completed [facility] MMR Unknown Completed [facility] Polio (IPV/OPV) Unknown Completed [facility] Influenza Virus Vaccine Quad IM 3+ YRS Unknown Completed [facility] TDAP (ADACEL) VACCINE Unknown Completed [facility] HIB 4 Dose Schedule Unknown Completed [facility] Hep B, Adol or Pedi Dosage Unknown Completed [facility] Meningococcal Polysaccharide (groups A, C, Y and W-135) conjugate vaccine (MCV4P) Unknown Completed [facility] MMR Unknown Completed [facility] Polio (IPV/OPV) Unknown Completed [facility] Varicella (varivax)(chicken pox) Unknown Completed [facility] Influenza Virus Vaccine Quad IM 3+ YRS Unknown Completed [facility] TDAP (ADACEL) VACCINE Unknown Completed [facility] HIB 4 Dose Schedule Unknown Completed [facility] Hep B, Adol or Pedi Dosage Unknown Completed [facility] Meningococcal Polysaccharide (groups A, C, Y and W-135) conjugate vaccine (MCV4P) Unknown Completed [facility] MMR Unknown Completed [facility] Polio (IPV/OPV) Unknown Completed [facility] Varicella (varivax)(chicken pox) Unknown Completed [facility] Influenza Virus Vaccine Quad IM 3+ YRS Unknown Completed [facility] TDAP (ADACEL) VACCINE Unknown Completed [facility] HIB 4 Dose Schedule Unknown Completed [facility] Hep B, Adol or Pedi Dosage Unknown Completed [facility] Meningococcal Polysaccharide (groups A, C, Y and W-135) conjugate vaccine (MCV4P) Unknown Completed [facility] MMR Unknown Completed [facility] Polio (IPV/OPV) Unknown Completed [facility] Varicella (varivax)(chicken pox) Unknown Completed [facility] Influenza Virus Vaccine Quad IM 3+ YRS Unknown Completed [facility] TDAP (ADACEL) VACCINE Unknown Completed [facility] HIB 4 Dose Schedule Unknown Completed [facility] Hep B, Adol or Pedi Dosage Unknown Completed [facility] Meningococcal Polysaccharide (groups A, C, Y and W-135) conjugate vaccine (MCV4P) Unknown Completed [facility] MMR Unknown Completed [facility] Polio (IPV/OPV) Unknown Completed [facility] Varicella (varivax)(chicken pox) Unknown Completed [facility] Influenza Virus Vaccine Quad IM 3+ YRS Unknown Completed [facility] TDAP (ADACEL) VACCINE Unknown Completed [facility] HIB 4 Dose Schedule Unknown Completed [facility] Hep B, Adol or Pedi Dosage Unknown Completed [facility] Meningococcal Polysaccharide (groups A, C, Y and W-135) conjugate vaccine (MCV4P) Unknown Completed [facility] MMR Unknown Completed [facility] Polio (IPV/OPV) Unknown Completed [facility] Varicella (varivax)(chicken pox) Unknown Completed [facility] Meningococcal Polysaccharide (groups A, C, Y and W-135) conjugate vaccine (MCV4P) Unknown Completed [facility] Varicella (varivax)(chicken pox) Unknown Completed [facility] Influenza Virus Vaccine Quad IM 3+ YRS Unknown Completed [facility] TDAP (ADACEL) VACCINE Unknown Completed [facility] HIB 4 Dose Schedule Unknown Completed [facility] Hep B, Adol or Pedi Dosage Unknown Completed [facility] MMR Unknown Completed [facility] Polio (IPV/OPV) Unknown Completed [facility] Influenza Virus Vaccine Quad IM 3+ YRS Unknown Completed [facility] TDAP (ADACEL) VACCINE Unknown Completed [facility] HIB 4 Dose Schedule Unknown Completed [facility] Hep B, Adol or Pedi Dosage Unknown Completed [facility] Meningococcal Polysaccharide (groups A, C, Y and W-135) conjugate vaccine (MCV4P) Unknown Completed [facility] MMR Unknown Completed [facility] Polio (IPV/OPV) Unknown Completed [facility] Varicella (varivax)(chicken pox) Unknown Completed [facility] Influenza Virus Vaccine Quad IM 3+ YRS Unknown Completed [facility] TDAP (ADACEL) VACCINE Unknown Completed [facility] HIB 4 Dose Schedule Unknown Completed [facility] Hep B, Adol or Pedi Dosage Unknown Completed [facility] Meningococcal Polysaccharide (groups A, C, Y and W-135) conjugate vaccine (MCV4P) Unknown Completed [facility] MMR Unknown Completed [facility] Polio (IPV/OPV) Unknown Completed [facility] Varicella (varivax)(chicken pox) Unknown Completed [facility] Influenza Virus Vaccine Quad IM 3+ YRS Unknown Completed [facility] TDAP (ADACEL) VACCINE Unknown Completed [facility] HIB 4 Dose Schedule Unknown Completed [facility] Hep B, Adol or Pedi Dosage Unknown Completed [facility] Meningococcal Polysaccharide (groups A, C, Y and W-135) conjugate vaccine (MCV4P) Unknown Completed [facility] MMR Unknown Completed [facility] Polio (IPV/OPV) Unknown Completed [facility] Varicella (varivax)(chicken pox) Unknown Completed [facility] Influenza Virus Vaccine Quad IM 3+ YRS Unknown Completed [facility] TDAP (ADACEL) VACCINE Unknown Completed [facility] HIB 4 Dose Schedule Unknown Completed [facility] Hep B, Adol or Pedi Dosage Unknown Completed [facility] Meningococcal Polysaccharide (groups A, C, Y and W-135) conjugate vaccine (MCV4P) Unknown Completed [facility] MMR Unknown Completed [facility] Polio (IPV/OPV) Unknown Completed [facility] Varicella (varivax)(chicken pox) Unknown Completed [facility] Influenza Virus Vaccine Quad IM 3+ YRS Unknown Completed [facility] TDAP (ADACEL) VACCINE Unknown Completed [facility] HIB 4 Dose Schedule Unknown Completed [facility] Hep B, Adol or Pedi Dosage Unknown Completed [facility] Meningococcal Polysaccharide (groups A, C, Y and W-135) conjugate vaccine (MCV4P) Unknown Completed [facility] MMR Unknown Completed [facility] Polio (IPV/OPV) Unknown Completed [facility] Varicella (varivax)(chicken pox) Unknown Completed [facility] Influenza Virus Vaccine Quad IM 3+ YRS Unknown Completed [facility] TDAP (ADACEL) VACCINE Unknown Completed [facility] HIB 4 Dose Schedule Unknown Completed [facility] Hep B, Adol or Pedi Dosage Unknown Completed [facility] Meningococcal Polysaccharide (groups A, C, Y and W-135) conjugate vaccine (MCV4P) Unknown Completed [facility] MMR Unknown Completed [facility] Polio (IPV/OPV) Unknown Completed [facility] Varicella (varivax)(chicken pox) Unknown Completed [facility] Influenza Virus Vaccine Quad IM 3+ YRS Unknown Completed [facility] TDAP (ADACEL) VACCINE Unknown Completed [facility] HIB 4 Dose Schedule Unknown Completed [facility] Hep B, Adol or Pedi Dosage Unknown Completed [facility] Meningococcal Polysaccharide (groups A, C, Y and W-135) conjugate vaccine (MCV4P) Unknown Completed [facility] MMR Unknown Completed [facility] Polio (IPV/OPV) Unknown Completed [facility] Varicella (varivax)(chicken pox) Unknown Completed [facility] DTaP, Unspecified Formulation Unknown Completed [facility] Hib-HbOC Unknown Completed [facility] IPV Unknown Completed [facility] Meningococcal Polysaccharide (groups A, C, Y and W-135) conjugate vaccine (MCV4P) Unknown Completed [facility] Varicella (varivax)(chicken pox) Unknown Completed [facility] Influenza Virus Vaccine Quad IM 3+ YRS Unknown Completed [facility] TDAP (ADACEL) VACCINE Unknown Completed [facility] HIB 4 Dose Schedule Unknown Completed [facility] Hep B, Adol or Pedi Dosage Unknown Completed [facility] MMR Unknown Completed [facility] Polio (IPV/OPV) Unknown Completed [facility] DTaP, Unspecified Formulation Unknown Completed [facility] Hib-HbOC Unknown Completed [facility] IPV Unknown Completed [facility] Influenza Virus Vaccine Quad IM 3+ YRS Unknown Completed [facility] TDAP (ADACEL) VACCINE Unknown Completed [facility] HIB 4 Dose Schedule Unknown Completed [facility] Hep B, Adol or Pedi Dosage Unknown Completed [facility] Meningococcal Polysaccharide (groups A, C, Y and W-135) conjugate vaccine (MCV4P) Unknown Completed [facility] MMR Unknown Completed [facility] Polio (IPV/OPV) Unknown Completed [facility] Varicella (varivax)(chicken pox) Unknown Completed [facility] DTaP, Unspecified Formulation Unknown Completed [facility] Hib-HbOC Unknown Completed [facility] IPV Unknown Completed [facility] Influenza Virus Vaccine Quad IM 3+ YRS Unknown Completed [facility] TDAP Unknown Completed [facility] HIB 4 Dose Schedule Unknown Completed [facility] Hep B, Adol or Pedi Dosage Unknown Completed [facility] Meningococcal Polysaccharide (groups A, C, Y and W-135) conjugate vaccine (MCV4P) Unknown Completed [facility] MMR Unknown Completed [facility] Polio (IPV/OPV) Unknown Completed [facility] Varicella (varivax)(chicken pox) Unknown Completed [facility] DTaP, Unspecified Formulation Unknown Completed [facility] Hib-HbOC Unknown Completed [facility] IPV Unknown Completed [facility] Influenza Virus Vaccine Quad IM 3+ YRS Unknown Completed [facility] TDAP (ADACEL) VACCINE Unknown Completed [facility] HIB 4 Dose Schedule Unknown Completed [facility] Hep B, Adol or Pedi Dosage Unknown Completed [facility] Meningococcal Polysaccharide (groups A, C, Y and W-135) conjugate vaccine (MCV4P) Unknown Completed [facility] MMR Unknown Completed [facility] Polio (IPV/OPV) Unknown Completed [facility] Varicella (varivax)(chicken pox) Unknown Completed [facility] DTaP, Unspecified Formulation Unknown Completed [facility] Hib-HbOC Unknown Completed [facility] IPV Unknown Completed [facility] Influenza Virus Vaccine Quad IM 3+ YRS Unknown Completed [facility] TDAP (ADACEL) VACCINE Unknown Completed [facility] HIB 4 Dose Schedule Unknown Completed [facility] Hep B, Adol or Pedi Dosage Unknown Completed [facility] Meningococcal Polysaccharide (groups A, C, Y and W-135) conjugate vaccine (MCV4P) Unknown Completed [facility] MMR Unknown Completed [facility] Polio (IPV/OPV) Unknown Completed [facility] Varicella (varivax)(chicken pox) Unknown Completed [facility] DTaP, Unspecified Formulation Unknown Completed [facility] Hib-HbOC Unknown Completed [facility] IPV Unknown Completed [facility] Influenza Virus Vaccine Quad IM 3+ YRS Unknown Completed [facility] TDAP (ADACEL) VACCINE Unknown Completed [facility] HIB 4 Dose Schedule Unknown Completed [facility] Hep B, Adol or Pedi Dosage Unknown Completed [facility] Meningococcal Polysaccharide (groups A, C, Y and W-135) conjugate vaccine (MCV4P) Unknown Completed [facility] MMR Unknown Completed [facility] Polio (IPV/OPV) [facility])(chicken pox) Unknown Completed [facility] DTaP, Unspecified Formulation Unknown Completed [facility] Hib-HbOC Unknown Completed [facility] IPV Unknown Completed [facility] DTaP, Unspecified Formulation Unknown Completed [facility] Hib-HbOC Unknown Completed [facility] Influenza Virus Vaccine Quad IM 3+ YRS Unknown Completed [facility] TDAP (ADACEL) VACCINE Unknown Completed [facility] HIB 4 Dose Schedule Unknown Completed [facility] Hep B, Adol or Pedi Dosage Unknown Completed [facility] Meningococcal Polysaccharide (groups A, C, Y and W-135) conjugate vaccine (MCV4P) Unknown Completed [facility] MMR Unknown Completed [facility] Polio (IPV/OPV) Unknown Completed [facility] Varicella (varivax)(chicken pox) Unknown Completed [facility] DTaP, Unspecified Formulation Unknown Completed [facility] Hib-HbOC Unknown Completed [facility] IPV Unknown Completed [facility] Influenza Virus Vaccine Quad IM 3+ YRS Unknown Completed [facility] TDAP (ADACEL) VACCINE Unknown Completed [facility] HIB 4 Dose Schedule Unknown Completed [facility] Hep B, Adol or Pedi Dosage Unknown Completed [facility] Meningococcal Polysaccharide (groups A, C, Y and W-135) conjugate vaccine (MCV4P) Unknown Completed [facility] MMR Unknown Completed [facility] Polio (IPV/OPV) Unknown Completed [facility] Varicella (varivax)(chicken pox) Unknown Completed [facility] DTaP, Unspecified Formulation Unknown Completed [facility] Hib-HbOC Unknown Completed [facility] IPV Unknown Completed [facility] Influenza Virus Vaccine Quad IM 3+ YRS Unknown Completed [facility] TDAP (ADACEL) VACCINE Unknown Completed [facility] HIB 4 Dose Schedule Unknown Completed [facility] Hep B, Adol or Pedi Dosage Unknown Completed [facility] Meningococcal Polysaccharide (groups A, C, Y and W-135) conjugate vaccine (MCV4P) Unknown Completed [facility] MMR Unknown Completed [facility] Polio (IPV/OPV) Unknown [facility]icella (varivax)(chicken pox) Unknown Completed [facility] DTaP, Unspecified Formulation Unknown Completed [facility] Hib-HbOC Unknown Completed [facility] IPV Unknown Completed [facility] Influenza Virus Vaccine Quad IM 3+ YRS Unknown Completed [facility] TDAP (ADACEL) VACCINE Unknown Completed [facility] HIB 4 Dose Schedule Unknown Completed [facility] Hep B, Adol or Pedi Dosage Unknown Completed [facility] Meningococcal Polysaccharide (groups A, C, Y and W-135) conjugate vaccine (MCV4P) Unknown Completed [facility] MMR Unknown Completed [facility] Polio (IPV/OPV) Unknown Completed [facility] Varicella (varivax)(chicken pox) Unknown Completed [facility] DTaP, Unspecified Formulation Unknown Completed [facility] Hib-HbOC Unknown Completed [facility] IPV Unknown Completed [facility] Influenza Virus Vaccine Quad IM 3+ YRS Unknown Completed [facility] TDAP (ADACEL) VACCINE Unknown Completed [facility] HIB 4 Dose Schedule Unknown Completed [facility] Hep B, Adol or Pedi Dosage Unknown Completed [facility] Meningococcal Polysaccharide (groups A, C, Y and W-135) conjugate vaccine (MCV4P) Unknown Completed [facility] MMR Unknown Completed [facility] Polio (IPV/OPV) Unknown Completed [facility] Varicella (varivax)(chicken pox) Unknown Completed [facility] DTaP, Unspecified Formulation Unknown Completed [facility] Hib-HbOC Unknown Completed [facility] IPV Unknown Completed [facility] Influenza Virus Vaccine Quad IM 3+ YRS Unknown Completed [facility] TDAP (ADACEL) VACCINE Unknown Completed [facility] HIB 4 Dose Schedule Unknown Completed [facility] Hep B, Adol or Pedi Dosage Unknown Completed [facility] Meningococcal Polysaccharide (groups A, C, Y and W-135) conjugate vaccine (MCV4P) Unknown Completed [facility] MMR Unknown Completed [facility] Polio (IPV/OPV) Unknown Completed [facility] Varicella (varivax)(chicken pox) Unknown Completed [facility] DTaP, Unspecified Formulation Unknown Completed [facility] Hib-HbOC Unknown Completed [facility] IPV Unknown Completed [facility] Influenza Virus Vaccine Quad IM 3+ YRS Unknown Completed [facility] HIB 4 Dose Schedule Unknown Completed [facility] Hep B, Adol or Pedi Dosage Unknown Completed [facility] Meningococcal Polysaccharide (groups A, C, Y and W-135) conjugate vaccine (MCV4P) Unknown Completed [facility] MMR Unknown Completed [facility] Polio (IPV/OPV) Unknown Completed [facility] Varicella (varivax)(chicken pox) Unknown Completed [facility] TDAP Unknown Completed [facility] DTaP, Unspecified Formulation Unknown Completed [facility] Hib-HbOC Unknown Completed [facility] IPV Unknown Completed [facility] measles/mumps/rubell a virus vaccine Unknown Completed [facility] diphtheria/pertussis , acel/tetanus ped Unknown Com[facility] poliovirus vaccine, inactivated Unknown Completed [facility] haemophilus b conjugate (PRP-T) vaccine Unknown Completed [facility] hepatitis B pediatric vaccine Unknown Completed [facility] poliovirus vaccine-unspecified Unknown Completed [facility] measles/mumps/rubell a virus vaccine Unknown Completed [facility] diphtheria/pertussis , acel/tetanus ped Unknown Completed [facility] poliovirus vaccine, inactivated Unknown Completed [facility] haemophilus b conjugate (PRP-T) vaccine Unknown Completed [facility] hepatitis B pediatric vaccine Unknown Completed [facility] Hx poliovirus vaccine-unspecified Unknown Completed [facility] measles/mumps/rubell a virus vaccine Unknown Completed [facility] diphtheria/pertussis , acel/tetanus ped Unknown Completed [facility] poliovirus vaccine, inactivated Unknown Completed [facility] haemophilus b conjugate (PRP-T) vaccine Unknown Completed [facility] hepatitis B pediatric vaccine Unknown Completed [facility] poliovirus vaccine-unspecified Unknown Completed [facility] measles/mumps/rubell a virus vaccine Unknown Completed [facility] diphtheria/pertussis , acel/tetanus ped Unknown Completed [facility] poliovirus vaccine, inactivated Unknown Completed [facility] haemophilus b conjugate (PRP-T) vaccine Unknown Completed [facility] hepatitis B pediatric vaccine Unknown Completed [facility] Hx poliovirus vaccine-unspecified Unknown Completed [facility] measles/mumps/rubell a virus vaccine Unknown Completed [facility] diphtheria/pertussis , acel/tetanus ped Unknown Completed [facility] poliovirus vaccine, inactivated Unknown Completed [facility] haemophilus b conjugate (PRP-T) vaccine Unknown Completed [facility] hepatitis B pediatric vaccine Unknown Completed [facility] H[facility] poliovirus vaccine-unspecified Unknown Completed [facility] Vital Signs Vital Name Observation Time Observation Value Comments S chinyere Systolic blood pressure 2025-04-04 19:23:00 132 mm[Hg] [facility] Diastolic blood pressure 2025-04-04 19:23:00 85 mm[Hg] [facility] Heart rate 2025-04-04 19:23:00 82 /min [facility] Body height 2025-04-04 19:23:00 165.1 cm [facility] Body weight 2025-04-04 19:23:00 89.449 kg [facility] BMI 2025-04-04 19:23:00 32.82 kg/m2 [facility] Oxygen saturation in Arterial blood by Pulse oximetry 2025-04-04 19:23:00 98 /min [facility] Systolic blood pressure 2025-03-07 20:07:00 120 mm[Hg] [facility] Diastolic blood pressure 2025-03-07 20:07:00 75 mm[Hg] [facility] Heart rate 2025-03-07 20:07:00 68 /min [facility] Body temperature 2025-03-07 20:07:00 36.72 Soila [facility] Body weight 2025-03-07 20:07:00 89.177 kg [facility] BMI 2025-03-07 20:07:00 32.72 kg/m2 [facility] Systolic blood pressure 2025-01-14 16:37:00 132 mm[Hg] [facility] Diastolic blood pressure 2025-01-14 16:37:00 83 mm[Hg] [facility] Heart rate 2025-01-14 16:37:00 94 /min [facility] Body temperature 2025-01-14 16:37:00 36.72 Soila [facility] Respiratory rate 2025-01-14 16:37:00 20 /min [facility] Body height 2025-01-14 16:37:00 165.1 cm [facility] Body weight 2025-01-14 16:37:00 86.32 kg [facility] BMI 2025-01-14 16:37:00 31.67 kg/m2 [facility] Oxygen saturation in Arterial blood by Pulse oximetry 2025-01-14 16:37:00 98 /min [facility] Systolic blood pressure 2024-12-31 18:45:00 126 mm[Hg] [facility] Diastolic blood pressure 2024-12-31 18:45:00 90 mm[Hg] [facility] Heart rate 2024-12-31 18:45:00 75 /min [facility] Respiratory rate 2024-12-31 18:45:00 18 /min [facility] Body height 2024-12-31 18:45:00 165.1 cm [facility] Body weight 2024-12-31 18:45:00 85.276 kg [facility] BMI 2024-12-31 18:45:00 31.28 kg/m2 [facility] Systolic blood pressure 2024-12-24 20:14:00 149 mm[Hg] [facility] Diastolic blood pressure 2024-12-24 20:14:00 86 mm[Hg] [facility] Heart rate 2024-12-24 20:14:00 76 /min [facility] Body temperature 2024-12-24 20:14:00 36.56 Soila [facility] Respiratory rate 2024-12-24 20:14:00 16 /min [facility] Body height 2024-12-24 20:14:00 165.1 cm [facility] Body weight 2024-12-24 20:14:00 86.183 kg [facility] BMI 2024-12-24 20:14:00 31.62 kg/m2 [facility] Oxygen saturation in Arterial blood by Pulse oximetry 2024-12-24 20:14:00 99 /min [facility] Systolic blood pressure 2024-10-04 19:34:00 132 mm[Hg] [facility] Diastolic blood pressure 2024-10-04 19:34:00 83 mm[Hg] [facility] Heart rate 2024-10-04 19:34:00 70 /[facility] 2024-10-04 19:34:00 [facility].1 [facility] Body weight 2024-10-04 19:34:00 84.823 kg [facility] BMI 2024-10-04 19:34:00 31.12 kg/m2 [facility] Oxygen saturation in Arterial blood by Pulse oximetry 2024-10-04 19:34:00 99 /min [facility] Systolic blood pressure 2024-07-08 14:31:00 115 mm[Hg] [facility] Diastolic blood pressure 2024-07-08 14:31:00 81 mm[Hg] [facility] Heart rate 2024-07-08 14:31:00 64 /min [facility] Body temperature 2024-07-08 14:31:00 36.56 Soila [facility] Respiratory rate 2024-07-08 14:31:00 18 /min [facility] Body height 2024-07-08 14:31:00 165.1 cm [facility] Body weight 2024-07-08 14:31:00 85.186 kg [facility] BMI 2024-07-08 14:31:00 31.25 kg/m2 [facility] Systolic blood pressure 2024-07-05 20:36:00 121 mm[Hg] [facility] Diastolic blood pressure 2024-07-05 20:36:00 85 mm[Hg] [facility] Heart rate 2024-07-05 20:36:00 67 /min [facility] Body temperature 2024-07-05 20:36:00 36.44 Soila [facility] Body height 2024-07-05 20:36:00 165.1 cm [facility] Body weight 2024-07-05 20:36:00 84.414 kg [facility] BMI 2024-07-05 20:36:00 30.97 kg/m2 [facility] Oxygen saturation in Arterial blood by Pulse oximetry 2024-07-05 20:36:00 100 /min [facility] Systolic blood pressure 2024-05-24 19:30:00 116 mm[Hg] [facility] Diastolic blood pressure 2024-05-24 19:30:00 76 mm[Hg] [facility] Heart rate 2024-05-24 19:30:00 67 /min [facility] Body height 2024-05-24 19:30:00 165.1 cm [facility] Body weight 2024-05-24 19:30:00 82.872 kg [facility] BMI 2024-05-24 19:30:00 30.40 kg/m2 [facility] Oxygen saturation in Arterial blood by Pulse oximetry 2024-05-24 19:30:00 98 /min [facility] Systolic blood pressure 2024-05-21 05:19:54 130 mm[Hg] [facility] Diastolic blood pressure 2024-05-21 05:19:54 97 mm[Hg] [facility] Heart rate 2024-05-21 05:19:54 86 /min [facility] Body temperature 2024-05-21 05:19:54 35.89 Soila [facility] Respiratory rate 2024-05-21 05:19:54 16 /min [facility] Oxygen saturation in Arterial blood by Pulse oximetry 2024-05-21 05:19:54 100 /min [facility] Body height 2024-05-21 00:15:00 165.1 cm [facility] Body weight 2024-05-21 00:15:00 81.647 kg [facility] BMI 2024-05-21 00:15:00 29.95 kg/m2 [facility] Systolic blood pressure 2024-05-18 14:19:00 112 mm[Hg] [facility] Diastolic blood pressure 2024-05-18 14:19:00 69 mm[Hg] [facility] Heart rate 2024-05-18 14:19:00 58 /min [facility] Body temperature 2024-05-18 14:19:00 36.39 Soila [facility] Body height 2024-05-18 14:19:00 165.1 cm [facility] Body weight 2024-05-18 14:19:00 82.056 [facility] BMI 2024-05-18 14:19:00 30.10 kg/m2 [facility] Oxygen saturation in Arterial blood by Pulse oximetry 2024-05-18 14:19:00 97 /min [facility] Systolic blood pressure 2024-04-24 16:19:00 122 mm[Hg] [facility] Diastolic blood pressure 2024-04-24 16:19:00 83 mm[Hg] [facility] Heart rate 2024-04-24 16:19:00 84 /min [facility] Body temperature 2024-04-24 16:19:00 37.06 Soila [facility] Body height 2024-04-24 16:19:00 165.1 cm [facility] Body weight 2024-04-24 16:19:00 82.101 kg [facility] BMI 2024-04-24 16:19:00 30.12 kg/m2 [facility] Oxygen saturation in Arterial blood by Pulse oximetry 2024-04-24 16:19:00 98 /min [facility] Systolic blood pressure 2024-04-05 19:28:00 127 mm[Hg] [facility] Diastolic blood pressure 2024-04-05 19:28:00 76 mm[Hg] [facility] Heart rate 2024-04-05 19:28:00 76 /min [facility] Body height 2024-04-05 19:28:00 165.1 cm [facility] Body weight 2024-04-05 19:28:00 84.732 kg [facility] BMI 2024-04-05 19:28:00 31.09 kg/m2 [facility] Oxygen saturation in Arterial blood by Pulse oximetry 2024-04-05 19:28:00 99 /min [facility] Systolic blood pressure 2023-10-28 15:47:00 115 mm[Hg] [facility] Diastolic blood pressure 2023-10-28 15:47:00 74 mm[Hg] [facility] Heart rate 2023-10-28 15:47:00 76 /min [facility] Body temperature 2023-10-28 15:47:00 36.78 Soila [facility] Respiratory rate 2023-10-28 15:47:00 18 /min [facility] Body height 2023-10-28 15:47:00 165.1 cm [facility] Body weight 2023-10-28 15:47:00 78.518 [facility] BMI 2023-10-28 15:47:00 28.81 kg/m2 [facility] Oxygen saturation in Arterial blood by Pulse oximetry 2023-10-28 15:47:00 98 /min [facility] Systolic blood pressure 2023-10-06 19:47:00 125 mm[Hg] [facility] Diastolic blood pressure 2023-10-06 19:47:00 81 mm[Hg] [facility] Heart rate 2023-10-06 19:47:00 85 /min [facility] Respiratory rate 2023-10-06 19:47:00 18 /min [facility] Body height 2023-10-06 19:47:00 165.1 cm [facility] Body weight 2023-10-06 19:47:00 77.928 kg [facility] BMI 2023-10-06 19:47:00 28.59 kg/m2 [facility] Oxygen saturation in Arterial blood by Pulse oximetry 2023-10-06 19:47:00 96 /min [facility] Systolic blood pressure 2023-03-26 15:42:00 145 mm[Hg] [facility] Diastolic blood pressure 2023-03-26 15:42:00 86 mm[Hg] [facility] Heart rate 2023-03-26 15:42:00 86 /min [facility] Body height 2023-03-26 15:41:00 165.1 cm [facility] Body weight 2023-03-26 15:41:00 80.241 kg [facility] BMI 2023-03-26 15:41:00 29.44 kg/m2 [facility] Systolic blood pressure 2023-02-27 23:44:00 127 mm[Hg] [facility] Diastolic blood pressure 2023-02-27 23:44:00 84 mm[Hg] [facility] Heart rate 2023-02-27 23:44:00 75 /min [facility] Body temperature 2023-02-27 23:44:00 36.5 Soila [facility] Respiratory rate 2023-02-27 23:44:00 20 /min [facility] Body height 2023-02-27 23:44:00 165.1 cm [facility] Body weight 2023-02-27 23:44:00 80.015 kg [facility] BMI 2023-02-27 23:44:00 29.35 kg/m2 [facility] Oxygen saturation in Arterial blood by Pulse oximetry 2023-02-27 23:44:00 99 /min [facility] Systolic blood pressure 2022-11-18 22:24:00 114 mm[Hg] [facility] Diastolic blood pressure 2022-11-18 22:24:00 69 mm[Hg] [facility] Heart rate 2022-11-18 22:24:00 90 /min [facility] Body temperature 2022-11-18 22:24:00 37.28 Siola [facility] Respiratory rate 2022-11-18 22:24:00 17 /min [facility] Body height 2022-11-18 22:24:00 165.1 cm [facility] Body weight 2022-11-18 22:24:00 80.74 kg [facility] BMI 2022-11-18 22:24:00 29.62 kg/m2 [facility] Oxygen saturation in Arterial blood by Pulse oximetry 2022-11-18 22:24:00 98 /min [facility] BP Systolic 2024-04-19 13:35:00 119 mm[Hg] Step hen [facility] BP Diastolic 2024-04-19 13:35:00 83 mm[Hg] Leonard phen [facility] Weight Measured 2024-04-19 13:35:00 182.40 pounds Dinesh F [facility] Height Measured 2024-04-19 13:35:00 65.00 inches Dinesh F [facility] Body Temperature 2024-04-19 13:35:00 98.20 degrees Dinesh F [facility] Heart Rate 2024-04-19 13:35:00 80.00 /min Carole en F [facility] Respiratory Rate 2024-04-19 13:35:00 19.00 /min Dinesh F [facility] BP Systolic 2023-03-25 16:13:00 128 mm[Hg] Step hen [facility] BP Diastolic 2023-03-25 16:13:00 78 mm[Hg] Leonard phen [facility] Weight Measured 2023-03-25 16:13:00 175.60 pounds Dinesh F [facility] Height Measured 2023-03-25 16:13:00 65.00 inches Dinesh F [facility] Body Temperature 2023-03-25 16:13:00 97.50 degrees Dinesh F [facility] Heart Rate 2023-03-25 16:13:00 75.00 /min [facility]ole en [facility] Respiratory Rate 2023-03-25 16:13:00 Dinesh F [facility] BP Systolic 2023-02-01 09:16:00 119 mm[Hg] Step hen [facility] BP Diastolic 2023-02-01 09:16:00 79 mm[Hg] Leonard phen [facility] Weight Measured 2023-02-01 09:16:00 175.60 pounds Dinesh F [facility] Height Measured 2023-02-01 09:16:00 65.00 inches Dinesh F [facility] Body Temperature 2023-02-01 09:16:00 98.60 degrees Dinesh F [facility] Heart Rate 2023-02-01 09:16:00 73.00 /min [facility] en [facility] Respiratory Rate 2023-02-01 09:16:00 Dinesh F [facility] BP Systolic 2022-11-14 16:14:00 137 mm[Hg] Step hen [facility] BP Diastolic 2022-11-14 16:14:00 80 mm[Hg] Leonard phen [facility] Weight Measured 2022-11-14 16:14:00 177.20 pounds Dinesh F [facility] Height Measured 2022-11-14 16:14:00 65.00 inches Dinesh F [facility] Body Temperature 2022-11-14 16:14:00 98.60 degrees Dinesh F [facility] Heart Rate 2022-11-14 16:14:00 73.00 /min Car[facility] en [facility] Respiratory Rate 2022-11-14 16:14:00 18.00 /min Dinesh F [facility] BP Systolic 2022-08-24 12:38:00 142 mm[Hg] Step hen [facility] BP Diastolic 2022-08-24 12:38:00 82 mm[Hg] [facility] phen [facility] Weight Measured 2022-08-24 12:38:00 178.80 pounds Dinesh F [facility] Height Measured 2022-08-24 12:38:00 65.00 inches Dinesh F [facility] Body Temperature 2022-08-24 12:38:00 98.10 degrees Dinesh F [facility] Heart Rate 2022-08-24 12:38:00 72.00 /min Carole en F [facility] Respiratory Rate 2022-08-24 12:38:00 Dinesh F [facility] BP Systolic 2022-07-20 14:23:00 121 mm[Hg] Step hen F [facility] BP Diastolic 2022-07-20 14:23:00 80 mm[Hg] Leonard phen [facility] Weight Measured 2022-07-20 14:23:00 177.20 pounds Dinesh F [facility] Height Measured 2022-07-20 14:23:00 65.00 inches Dinesh F [facility] Body Temperature 2022-07-20 14:23:00 98.30 degrees Dinesh F [facility] Heart Rate 2022-07-20 14:23:00 64.00 /min Carole en [facility] Respiratory Rate 2022-07-20 14:23:00 Dinesh F [facility] BP Systolic 2022-07-06 13:45:00 128 mm[Hg] Step hen [facility] BP Diastolic 2022-07-06 13:45:00 78 mm[Hg] Leonard phen [facility] Weight Measured 2022-07-06 13:45:00 175.40 pounds Dinesh F [facility] Height Measured 2022-07-06 13:45:00 65.00 inches Dinesh F [facility] Body Temperature 2022-07-06 13:45:00 98.20 degrees Dinesh F [facility] Heart Rate 2022-07-06 13:45:00 82.00 /min Carole en [facility] Respiratory Rate 2022-07-06 13:45:00 Dinesh F [facility] BP Systolic 2022-06-06 17:30:00 125 mm[Hg] Step hen F [facility] BP Diastolic 2022-06-06 17:30:00 82 mm[Hg] Leonard phen F [facility] Weight Measured 2022-06-06 17:30:00 174.00 pounds Dinesh F [facility] Height Measured 2022-06-06 17:30:00 65.00 inches Dinesh F [facility] Body Temperature 2022-06-06 17:30:00 98.60 degrees Dinesh F Gust[facility] Heart Rate 2022-06-06 17:30:00 90.00 /min Carole en F [facility] Respiratory Rate 2022-06-06 17:30:00 Dinesh F Gustavo BP Systolic 2022-06-04 15:50:00 118 mm[Hg] Step hen F [facility] BP Diastolic 2022-06-04 15:50:00 81 mm[Hg] Leonard phen [facility] Weight Measured 2022-06-04 15:50:00 174.80 pounds Dinesh F [facility] Height Measured 2022-06-04 15:50:00 65.00 inches Dinesh F [facility] Body Temperature 2022-06-04 15:50:00 98.00 degrees Dinesh F [facility] Heart Rate 2022-06-04 15:50:00 85.00 /min Carole en [facility] Respiratory Rate 2022-06-04 15:50:00 16.00 /min Dinesh F Gustavo BP Systolic 2022-04-18 14:59:00 120 mm[Hg] Step hen F Gustavo BP Diastolic 2022-04-18 14:59:00 70 mm[Hg] Leonard phen F Gustavo Weight Measured 2022-04-18 14:59:00 172.80 pounds Dinesh F Gustavo Height Measured 2022-04-18 14:59:00 65.00 inches Dinesh F Gustavo Body Temperature 2022-04-18 14:59:00 98.70 degrees Dinesh F Gustavo Heart Rate 2022-04-18 14:59:00 81.00 /min Carole en F Gustavo Respiratory Rate 2022-04-18 14:59:00 Dinesh F Gustavo BP Systolic 2022-04-10 16:32:00 125 mm[Hg] BP [...] Oral (F) 2020-08-09 05:32:00 98 F [facility] Heart Rate 2020-08-09 05:32:00 [facility] Respitory Rate 2020-08-09 05:32:00 [facility] Systolic (mm Hg) 2020-08-09 05:32:00 [facility] Diastolic (mm Hg) 2020-08-09 05:32:00 [facility] Weight 2020-08-09 02:24:00 [facility] Systolic (mm Hg) 2020-08-09 02:24:00 [facility] Diastolic (mm Hg) 2020-08-09 02:24:00 [facility] Heart Rate 2020-08-09 02:24:00 [facility] Respitory Rate 2020-08-09 02:24:00 [facility] Temperature Oral (F) 2020-08-09 02:24:00 98.4 F [facility] Temperature Oral (F) 2014-05-24 22:16:00 98.7 F [facility] Diastolic (mm Hg) 2014-05-24 22:16:00 [facility] Respitory Rate 2014-05-24 22:16:00 [facility] Systolic (mm Hg) 2014-05-24 22:16:00 [facility] Respitory Rate 2014-05-24 21:03:00 [facility] Diastolic (mm Hg) 2014-05-24 21:03:00 [facility] Systolic (mm Hg) 2014-05-24 21:03:00 [facility] Weight 2014-05-24 19:05:00 [facility] Height 2014-05-24 19:05:00 165.1 cm [facility] BMI Calculated 2014-05-24 19:05:00 [facility] Temperature Oral (F) 2014-05-24 19:05:00 98.9 F [facility] Respitory Rate 2014-05-24 19:05:00 [facility] Diastolic (mm Hg) 2014-05-24 19:05:00 [facility] Heart Rate 2014-05-24 19:05:00 [facility] Systolic (mm Hg) 2014-05-24 19:05:00 [facility] Procedures Procedure Date / Time Performed Performing Clinician Source GALV ONLY - VAGINAL PATHOGENS BY NUCLEIC ACID TESTING 2025-01-14 16:59:00 Jojo Gilman [facility] POCT URINALYSIS 2025-01-14 16:53:00 [facility] 2025-01-14 16:53:00 Johan Gilman [facility] POCT URINALYSIS W/O SPECIFIC GRAVITY 2024-12-31 00:00:00 Иван Wall [facility] POCT TEST 2024-12-24 20:23:00 Bill Guadalupe [facility] US PELVIS COMPLETE WITH TRANSVAGINAL 2024-07-13 17:20:49 Edson Bergman [facility] URINE CULTURE 2024-07-05 21:09:00 [facility] 2024-07-05 20:38:00 Edson Bergman [facility] TRANSTHORACIC ECHO (TTE) COMPLETE 2024-06-02 20:55:56 Marlon Portillo [facility] CT CHEST PULMONARY ANGIOGRAM 2024-05-21 04:01:37 Tramaine Barnard [facility] POCT TEST 2024-05-21 02:28:00 Tramaine Barnard [facility] MAGNESIUM 2024-05-21 02:23:00 Tramaine [facility] TROPONIN I 2024-05-21 02:23:00 Tramaine [facility] BASIC METABOLIC PANEL (NA, K, CL, CO2, GLUCOSE, BUN, CREATININE, CA) 2024-05-21 02:23:00 Tramaine Barnard [facility] CBC WITH DIFF 2024-05-21 02:23:00 Tramaine Barnard [facility] D-DIMER 2024-05-21 02:23:00 Tramaine Barnard [facility] POCT MOLECULAR FLU 2023-10-28 15:56:00 Unknown, Attend [facility] POCT MOLECULAR STREP 2023-10-28 15:54:00 Unknown, Atte angel [facility] FREE T4 2023-10-14 14:44:00 Jordy Sena [facility] THYROID STIMULATING HORMONE 2023-10-14 14:44:00 Jordy Sena [facility] CONSENT/REFUSAL FOR DIAGNOSIS AND TREATMENT 2023-10-06 19:42:45 Doctor Unassigned, [place] [facility] CT HEAD WO CONTRAST 2023-03-21 18:47:03 Kimberley Horowitz [facility] XR SHUNT SERIES 2023-03-21 18:45:17 [facility] 2023-02-27 23:40:00 Abby Owens [facility] PATIENT FINANCIAL POLICY 2023-02-27 23:32:26 Doctor Unassigned, [place] [facility] POCT MOLECULAR FLU 2022-11-18 22:25:00 Unknown, Attend ing [facility] POCT MOLECULAR STREP 2022-11-18 22:22:00 Unknown, Atte angel [facility] REFERRAL- REQUEST/RESPONSE 2022-06-19 05:01:00 Doctor Unassigned, [place] [facility] [[facility]] CMP W/EGFR 2018-01-09 00:00:00 [facility] [[facility]] HEMOGLOBIN A1c 2018-01-09 00:00:00 [facility] [QL] LIPASE 2018-01-09 00:00:00 [facility] [QL] T4, FREE 2018-01-09 00:00:00 [facility] [[facility]] VITAMIN D, 25-HYDROXY, LC/MS/MS 2018-01-09 00:00:00 [facility] [[facility]] TSH, 3RD GENERATION 2018-01-09 00:00:00 [facility] Shunt procedure into peritoneum [facility] Plan of Care Planned Activity Planned Date Details Comments Source Goal Plan of Care Note [code = 10716-3] Goal Plan of Care Note [code = 86341-6] Goal Plan of Care Note [code = 18706-6] Goal Plan of Care Note [code = 07892-0] Goal Plan of Care Note [code = 17400-5] Goal Plan of Care Note [code = 27685-8] Goal Plan of Care Note [code = 70329-7] Goal Plan of Care Note [code = 21685-5] Goal Plan of Care Note [code = 55144-7] Goal Plan of Care Note [code = 39397-9] Goal Plan of Care Note [code = 47950-3] Goal Plan of Care Note [code = 34330-2] Goal Plan of Care Note [code = 01939-3] Goal Plan of Care Note [code = 52701-5] Goal Plan of Care Note [code = 78729-8] Goal Plan of Care Note [code = 54215-2] Goal Plan of Care Note [code = 43084-4] Goal Plan of Care Note [code = 23796-5] Goal Plan of Care Note [code = 89345-4] Goal Plan of Care Note [code = 04339-2] Goal Plan of Care Note [code = 33578-0] Goal Plan of Care Note [code = 87216-8] Goal Plan of Care Note [code = 88766-7] Goal Plan of Care Note [code = 05158-0] Goal Plan of Care Note [code = 34625-4] Goal Plan of Care Note [code = 56686-0] Goal Plan of Care Note [code = 99797-4] Goal Plan of Care Note [code = 44853-9] Goal Plan of Care Note [code = 14598-9] Goal Plan of Care Note [code = 73026-0] Goal Plan of Care Note [code = 82169-2] Goal Plan of Care Note [code = 23697-8] Goal Plan of Care Note [code = 66144-9] Goal Plan of Care Note [code = 79435-7] Goal Plan of Care Note [code = 94604-9] Goal Plan of Care Note [code = 94477-3] Goal Plan of Care Note [code = 00117-3] Goal Plan of Care Note [code = 74175-7] Goal Plan of Care Note [code = 16464-2] Goal Plan of Care Note [code = 40470-2] Goal Plan of Care Note [code = 36985-4] Goal Plan of Care Note [code = 83567-9] Goal Plan of Care Note [code = 08271-5] Goal Plan of Care Note [code = 04498-2] Goal Plan of Care Note [code = 24795-1] Encounters Start Date/Time End Date/Time Encounter Type Admission Type Attending Clinicians Care Facility Care Department Encounter ID Source 2021-10-01 14:17:50 [id number] 2021-09-30 22:26:09 [place] [id number] [facility] 2021-09-30 22:13:05 Emergency [facility] [id number] [facility] 2021-09-30 22:07:48 [place] [id number] [facility] 2021-09-30 21:52:57 [place] [id number] [facility] 2021-09-30 21:47:12 [facility] [id number] [facility] 2021-09-30 17:49:58 Outpatient [facility] [id number] [facility] 2021-09-30 17:46:00 Outpatient P [facility] [id number] [facility] 2021-09-29 07:41:30 Emergency [facility] [id number] [facility] 2021-09-29 07:05:22 [facility] [id number] [facility] 2021-09-29 06:59:05 Emergency [facility] [id number] [facility] 2021-09-28 16:28:56 [facility] [id number] [facility] 2021-09-28 16:12:06 [facility] [id number] 2021-09-28 16:07:19 [facility] [id number] [facility] 2021-09-28 16:01:25 Emergency [facility] [id number] [facility] 2021-09-27 19:42:34 [facility] [id number] [facility] 2021-09-27 19:34:23 [facility] [id number] [facility] 2025-06-02 15:30:00 2025-06-02 15:30:00 Outpatient LAURIE FITZPATRICK VIEN [facility] [id number] [facility] 2025-04-18 21:34:27 2025-04-18 21:36:00 Emergency [facility] [id number] [facility] 2025-04-04 14:30:00 2025-04-04 15:00:00 Office Visit Jordy Sena [facility] 1..840.114 350.1.13.10 4.2.7.2.686 [id number] [facility] 2025-04-04 14:30:00 2025-04-04 14:30:00 Outpatient R JORDY SENA [facility] [id number] [facility] 2025-03-07 15:00:00 2025-03-07 15:53:06 Outpatient R NANETTE LAURIE PARKS [facility] [id number] [facility] 2025-03-07 15:00:00 2025-03-07 15:53:06 Office Visit [facility] 1..840.114 350.1.13.10 4.2.7.2.686 [id number] [facility] 2025-03-01 16:30:00 2025-03-01 16:30:00 Outpatient R ИВАН WALL [facility] [id number] [facility] 2025-01-25 00:00:00 2025-01-25 08:52:27 [facility] 1..840.114 350.1.13.10 4.2.7.2.686 [id number] [facility] 2025-01-17 00:00:00 2025-01-17 09:29:26 Telephone Jojo Gilman [facility] 1.2.840.114 350.1.13.10 4.2.7.2.686 [id number] [facility] 2025-01-15 00:00:00 2025-01-15 15:10:59 Case Management Neema Guadalupe [facility] 1.2.840.114 350.1.13.10 4.2.7.2.686 [id number] [facility] 2020-04-05 00:00:00 2025-01-15 03:02:39 Orders Only Hina Barton [facility] [place] ([facility] 1.2.840.114 350.1.13.10 4.2.7.2.686 [id number] [facility] 2022-04-26 00:00:00 2025-01-15 02:48:14 Orders Only Loan Lazaro Mohammed [facility] 1.2.840.114 350.1.13.10 4.2.7.2.686 [id number] [facility] 2025-01-14 10:20:00 2025-01-14 11:01:22 Outpatient R JOJO GILMAN [facility] [id number] [facility] 2025-01-14 10:20:00 2025-01-14 11:01:22 Urgent Care Jojo Gilman Unknown, Attending [facility] OFF[facility] 1.2.840.114 350.1.13.10 4.2.7.2.686 [id number] [facility] 2024-12-31 13:15:00 2024-12-31 13:30:00 Leasing Director Visit 2, Adc Lab Иван Wall 2, Adc Lab [facility] 1.2.840.114 350.1.13.10 4.2.7.2.686 [id number] [facility] 2024-12-31 12:30:00 2024-12-31 12:56:21 Outpatient R ИВАН WALL [facility] [id number] [facility] 2024-12-31 12:30:00 2024-12-31 12:56:21 Office Visit Иван Wall [facility] 1.2.840.114 350.1.13.10 4.2.7.2.686 [id number] [facility] 2024-12-30 00:00:00 2024-12-30 09:45:34 Telephone Laurie Fitzpatrick [facility] 1.2.840.114 350.1.13.10 4.2.7.2.686 [id number] [facility] 2024-12-27 00:00:00 2024-12-27 20:25:53 Telephone Jojo Gilman [facility] 1.2.840.114 350.1.13.10 4.2.7.2.686 [id number] [facility] 2024-12-25 00:00:00 2024-12-25 12:29:26 Case Management Collins Neema [facility] 1.2.840.114 350.1.13.10 4.2.7.2.686 [id number] [facility] 2024-12-24 14:20:00 2024-12-24 14:28:22 Outpatient R [facility] [id number] [facility] 2024-12-24 14:20:2024-12-24 14:28:22 Urgent Care Neema Guadalupe Unknown, Attending [facility] MED[facility] OFF[facility] BU[facility] 1..840.114 350.1.13.10 4.2.7.2.686 [id number] [facility] 2024-12-24 10:00:00 2024-12-24 10:00:00 Outpatient R PACHECO, CHRISTOPHERDANNY PACHECO, CHRISTOPHERDANNY [facility] [id number] [facility] 2024-12-23 00:00:00 2024-12-24 08:43:40 Telephone Christopher [facility]mand[facility] 1..840.114 350.1.13.10 4.2.7.2.686 [id number] [facility] 2024-11-17 16:00:00 2024-11-17 16:00:00 Outpatient R PACHECO CHRISTOPHERDANNY PACHECO, CHRISTOPHERBabatundeU [facility] [id number] [facility] 2024-10-12 00:00:00 2024-11-13 18:20:22 Patient Secure Jordy Liz. [facility] MED[facility] OFF[facility] BU[facility] 1..840.114 350.1.13.10 4.2.7.2.686 [id number] [facility] 2024-11-10 14:30:00 2024-11-10 14:30:00 Outpatient R PACHECO EDSON BERGMAN EDSON [facility] [id number] [facility] 2024-10-11 15:00:00 2024-10-11 15:15:00 Leasing Director Visit Lab, Ang - Db Hemal Izaguirre Lab, Ang - Db [facility] 1..840.114 350.1.13.10 4.2.7.2.686 [id number] [facility] 2024-10-11 15:00:00 2024-10-11 15:00:00 Outpatient R BRENDAN HEMAL [facility] [id number] [facility] 2024-10-04 14:00:00 2024-10-04 14:02:45 Outpatient R JORDY SENA [facility] [id number] [facility] 2024-10-04 14:00:00 2024-10-04 14:02:45 Office Visit Jordy Sena [facility] 1..840.114 350.1.13.10 4.2.7.2.686 [id number] [facility] 2024-07-06 00:00:00 2024-08-07 18:21:00 Patient Secure Msg Doctor Unassigned, [place] Doctor Unassigned, [place] [facility] 1..840.114 350.1.13.10 4.2.7.2.686 [id number] [facility] 2024-07-21 15:30:00 2024-07-21 15:30:00 Outpatient R LAURIE FITZPATRICK VIEN [facility] [id number] [facility] 2024-07-16 00:00:00 2024-07-19 08:11:12 Patient Secure Msg Edson Bergman [facility] 1..840.114 350.1.13.10 4.2.7.2.686 [id number] [facility] 2024-07-17 00:00:00 2024-07-17 00:00:00 Outpatient R EDSON BERGMAN OGECHUKWU [facility] [id number] [facility] 2024-07-13 00:00:00 2024-07-14 19:42:13 Telephone Laurie Fitzpatrick [facility] 1.2.840.114 350.1.13.10 4.2.7.2.686 [id number] [facility] 2024-07-13 10:29:07 2024-07-13 23:59:00 Outpatient R EDSON BERGMAN OGECHUKWU [facility] [id number] [facility] 2024-07-13 10:29:07 2024-07-13 23:59:00 Hospital Encounter Edson Bergman [facility] 1.2.840.114 350.1.13.10 4.2.7.2.686 [id number] [facility] 2024-06-03 00:00:00 2024-07-10 18:25:37 Patient Secure Msg Portillo Marlon [facility] 1.2.840.114 350.1.13.10 4.2.7.2.686 [id number] [facility] 2024-07-09 00:00:00 2024-07-09 10:15:55 Telephone Edson Bergman [facility] 1.2.840.114 350.1.13.10 4.2.7.2.686 [id number] [facility] 2024-07-09 00:00:00 2024-07-09 09:52:42 Telephone Edson Bergman [facility] 1.2.840.114 350.1.13.10 4.2.7.2.686 [id number] [facility] 2024-07-08 09:30:00 2024-07-08 10:02:17 Outpatient R LAURIE FITZPATRICK VIEN [facility] [id number] [facility] 2024-07-08 09:30:00 2024-07-08 10:02:17 Office Visit Laurie Fitzpatrick [facility] 1.2.840.114 350.1.13.10 4.2.7.2.686 [id number] [facility] 2024-07-05 15:30:00 2024-07-05 16:02:46 Out[facility] [id number] [facility] 2024-07-05 15:30:00 2024-07-05 16:02:46 Office Visit Edson Bergman [facility] 1.2.840.114 350.1.13.10 4.2.7.2.686 [id number] [facility] 2024-06-02 15:25:46 2024-06-02 23:59:00 Outpatient R BYRON PORTILLOCORY [facility] [id number] [facility] 2024-06-02 15:25:46 2024-06-02 23:59:00 [facility] 1.2.840.114 350.1.13.10 4.2.7.2.686 [id number] [facility] 2024-05-24 14:20:00 2024-05-24 14:50:28 Outpatient R [facility] [id number] [facility] 2024-05-24 14:20:00 2024-05-24 14:50:28 [facility] 1.2.840.114 350.1.13.10 4.2.7.2.686 [id number] [facility] 2024-05-20 19:17:00 2024-05-21 00:41:00 Emergency X TRAMAINE BARNARD WAKILI [facility] ERT [id number] [facility] 2024-05-20 19:17:00 2024-05-21 00:41:00 Emergency Tramaine Barnard [facility] 1.2.840.114 350.1.13.10 4.2.7.2.686 [id number] [facility] 2024-05-18 10:15:00 2024-05-18 10:30:00 Leasing Director Visit 2, Adc Lab Edson Bergman [facility] PROF[facility] NAL BU[facility] 1.2.840.114 350.1.13.10 4.2.7.2.686 [id number] [facility] 2024-05-18 09:30:00 2024-05-18 10:03:42 Outpatient R PACHECO, CHRISTOPHERDANNY [facility] [id number] [facility] 2024-05-18 09:30:00 2024-05-18 10:03:42 Office Visit Edson Bergman [facility] 1.2.840.114 350.1.13.10 4.2.7.2.686 [id number] [facility] 2024-05-14 15:30:00 2024-05-14 15:30:00 Outpatient R CHRISTOPHER BERGMANDANNY PACHECO, EDSON [facility] [id number] [facility] 2024-04-05 00:00:00 2024-05-08 18:25:45 Patient Secure Msg Doctor Unassigned, [place] [facility] 1.2.840.114 350.1.13.10 4.2.7.2.686 [id number] [facility] 2024-03-20 00:00:00 2024-04-24 18:09:41 Patient Secure Msg Jordy Sena [facility] 1.840.114 350.1.13.10 4.2.7.2.686 [id number] [facility] 2024-04-24 11:20:00 2024-04-24 11:40:00 Urgent Care Terri Sneed Unknown, Attending [facility] BU[facility] 1.0.114 350.1.13.10 4.2.7.2.686 [id number] [facility] 2024-04-24 11:20:00 2024-04-24 11:20:00 Outpatient R TERRI SNEED [facility] [id number] [facility] 2024-04-21 07:59:52 2024-04-21 07:59:52 Outpatient [facility] [id number] Dinesh F Gustavo 2024-04-19 13:25:06 2024-04-19 13:25:06 Outpatient [facility] [id number] Dinesh F Gustavo 2024-04-19 00:00:00 2024-04-19 00:00:00 Outpatient Visit [facility] [id number] Dinesh F Gustavo 2024-04-07 00:00:00 2024-04-13 13:45:01 Patient Secure Msg Jordy Sena [facility] OFFICE BUILD[facility] 1.0.114 350.1.13.10 4.2.7.2.686 [id number] [facility] 2024-04-07 00:00:00 2024-04-07 20:58:06 [facility] 1.840.114 350.1.13.10 4.2.7.2.686 [id number] [facility] 2024-04-05 15:00:00 2024-04-05 15:15:00 Leasing Director Visit Lab, Abel Pepper [facility] 1.840.114 350.1.13.10 4.2.7.2.686 [id number] [facility] 2024-04-05 14:30:00 2024-04-05 14:56:15 Outpatient R JORDY SENA [facility] [id number] [facility] 2024-04-05 14:30:00 2024-04-05 14:56:15 [facility] 1.84.114 350.1.13.10 4.2.7.2.686 [id number] [facility] 2024-03-19 16:00:00 2024-03-19 16:10:25 Outpatient R JORDY SENA [facility] [id number] [facility] 2024-03-19 16:00:00 2024-03-19 16:10:25 Leasing Director Visit 2, Adc Lab Jordy Sena [facility] BUILDING 1.84.114 350.1.13.10 4.2.7.2.686 [id number] [facility] 2024-03-17 00:00:00 2024-03-17 00:00:00 [facility] OFFICE BUILD[facility] 1.84.114 350.1.13.10 4.2.7.2.686 [id number] 220 [id number] [facility] 2023-11-07 00:00:00 2023-11-07 00:00:00 Telephone Jordy Sena [facility] OFFICE BUILDING 1..114 350.1.13.10 4.2.7.2.686 [id number] 220 [id number] [facility] 2023-11-05 00:00:00 2023-11-05 00:00:00 RefJordy Ralph. [facility] 1..840.114 350.1.13.10 4.2.7.2.686 [id number] 220 [id number] [facility] 2023-10-28 09:40:00 2023-10-28 10:11:26 Outpatient R JOJO GILMAN [facility] [id number] [facility] 2023-10-28 09:40:00 2023-10-28 10:11:26 Urgent Care Jojo Gilman Unknown, Attending [facility] MEDICAL OFFICE BUILDING 1..840.114 350.1.13.10 4.2.7.2.686 [id number] [facility] 2023-10-14 09:00:00 2023-10-14 09:00:00 Leasing Director Visit Lab, Abel Chavez [facility] MEDICAL OFFICE BUILDING 1..840.114 350.1.13.10 4.2.7.2.686 [id number] 353 [id number] [facility] 2023-10-14 09:00:00 2023-10-14 08:50:40 Outpatient R FRANCESCA CHAVEZ [facility] [id number] [facility] 2023-10-14 00:00:00 2023-10-14 00:00:00 Patient Secure Jordy Liz [facility] MEDICAL OFFICE BUILD[facility] 1..840.114 350.1.13.10 4.2.7.2.686 [id number] 220 [id number] [facility] 2023-10-06 13:30:00 2023-10-06 14:24:58 Outpatient R JORDY SENA [facility] [id number] [facility] 2023-10-06 13:30:00 2023-10-06 14:00:00 Office Visit [facility] 1.2840.114 350.1.13.10 4.2.7.2.686 [id number] 220 [id number] [facility] 2023-10-06 00:00:00 2023-10-06 00:00:00 Orders Only Doctor Unassigned, [place] [facility] 1.84.114 350.1.13.10 4.2.7.2.686 [id number] [facility] 2023-10-02 00:00:00 2023-10-02 00:00:00 Telephone Fuentes Walsh [facility] 1.840.114 350.1.13.10 4.2.7.2.686 [id number] 220 [id number] [facility] 2023-09-27 00:00:00 2023-09-27 00:00:00 RefTherese Arenas [facility] OFF[facility] 1.84.114 350.1.13.10 4.2.7.2.686 [id number] 220 [id number] [facility] 2023-03-29 10:03:52 2023-03-29 10:03:52 Outpatient [facility] [id number] Dinesh Vinson Gustavo 2023-03-26 10:15:00 2023-03-26 16:27:29 Outpatient R GARRETT VILLALTA [facility] [id number] [facility] 2023-03-26 10:15:00 2023-03-26 16:27:29 Office Visit Garrett Villalta [facility] 1.840.114 350.1.13.10 4.2.7.2.686 [id number] [facility] 2023-03-25 16:07:53 2023-03-25 16:07:53 Outpatient HUMBLE [facility] [id number] Dinesh Chen 2023-03-21 13:10:52 2023-03-21 23:59:00 Hospital Encounter Mariann Horowitz [facility] 1.2840.114 350.1.13.10 4.2.7.2.686 [id number] [facility] 2023-03-21 13:03:55 2023-03-21 13:09:00 Outpatient R CARLOS MANUEL MARIANN [facility] [id number] [facility] 2023-03-21 13:03:55 2023-03-21 13:09:00 Hospital Encounter Carlos Manuel Mariann [facility] 1.2840.114 350.1.13.10 4.2.7.2.686 [id number] [facility] 2023-03-21 00:00:00 2023-03-21 00:00:00 Telephone Garrett Villalta [facility] OFF[facility] BUILD[facility] 1.2840.114 350.1.13.10 4.2.7.2.686 [id number] 196 [id number] [facility] 2023-03-21 00:00:00 2023-03-21 00:00:00 Patient Secure Msg Doctor Unassigned, [place] [facility] 1.2840.114 350.1.13.10 4.2.7.2.686 [id number] 196 [id number] [facility] 2023-03-20 00:00:00 2023-03-20 00:00:00 Telephone Simone Li [facility] ISAIAS[facility] 1.2840.114 350.1.13.10 4.2.7.2.686 [id number] [id number] [facility] 2023-02-27 18:20:00 2023-02-27 19:22:35 Outpatient R ABBY OWENS III [facility] [id number] [facility] 2023-02-27 18:20:00 2023-02-27 18:40:00 Urgent Care Abby Owens Unknown, Attending [facility] MEDICAL OFFICE BUILDING 1.2.840.114 350.1.13.10 4.2.7.2.686 [id number] [facility] 2023-02-27 00:00:00 2023-02-27 00:00:00 Orders Only Doctor Unassigned, [place] [facility] 1.2.840.114 350.1.13.10 4.2.7.2.686 [id number] [facility] 2023-02-01 09:10:00 2023-02-01 09:10:00 Outpatient [facility] [id number] Dinesh F Gustavo 2022-11-18 16:00:00 2022-11-18 16:20:00 Urgent Care Freda Gilmandereck Unknown, Attending [facility] MEDICAL OFFICE BUILDING 1.2.840.114 350.1.13.10 4.2.7.2.686 [id number] [facility] 2022-11-18 16:00:00 2022-11-18 16:00:00 Outpatient R JOJO GILMAN [facility] [id number] [facility] 2022-11-14 16:06:52 2022-11-14 16:06:52 Outpatient [facility] [id number] Dinesh Vinson Gustavo 2022-11-14 00:00:00 2022-11-14 00:00:00 Outpatient Visit [id number] 2022-09-17 00:00:00 2022-09-17 00:00:00 Case Management Chaya Marquez 1..114 350.1.13.10 4.2.7.2.686 [id number] [facility] 2022-08-24 00:00:00 2022-08-24 00:00:00 Outpatient Visit [id number] 2022-07-01 09:00:00 2022-07-01 09:00:00 Outpatient R TODD GUSMAN [facility] [id number] [facility] 2022-06-19 00:00:00 2022-06-19 00:00:00 Orders Only Doctor Unassigned, [place] [facility] 1..114 350.1.13.10 4.2.7.2.686 [id number] [facility] 2022-06-07 13:30:00 2022-06-07 13:59:32 Outpatient R GARRETT VILLALTA [facility] [id number] [facility] 2022-06-07 13:30:00 2022-06-07 13:59:32 Office Visit Clinic, Neurosurger y Resident Pawan [facility] ..114 350.1.13.10 4.2.7.2.686 [id number] [facility] 2022-06-07 00:00:00 2022-06-07 00:00:00 Letter (Out) Adrianne Rosario [facility] 1..114 350.1.13.10 4.2.7.2.686 [id number] 196 [id number] [facility] 2022-05-30 00:00:00 2022-05-30 00:00:00 Telephone Garrett Villalta [facility] 1.84.114 350.1.13.10 4.2.7.2.686 [id number] 196 [id number] [facility] 2022-05-28 00:00:00 2022-05-28 00:00:00 Transition of Care Mela Robertson 1.2840.114 350.1.13.10 4.2.7.2.686 [id number] [facility] 2022-05-27 00:00:00 2022-05-27 00:00:00 Patient Secure Msg Doctor Unassigned, [place] [facility] 1.84.114 350.1.13.10 4.2.7.2.686 [id number] [facility] 2022-05-23 20:24:00 2022-05-26 16:00:00 Inpatient X PAWAN [facility] YINA [id number] [facility] 2022-05-23 20:24:00 2022-05-26 16:00:00 Hospital Encounter Latonya Watkins Joel [facility] 1.84.114 350.1.13.10 4.2.7.2.686 [id number] [id number] [facility] 2022-05-24 11:54:00 2022-05-24 14:30:00 Surgery [facility] 1.2840.114 350.1.13.10 4.2.7.2.686 [id number] [facility] 2022-05-23 20:24:00 2022-05-23 20:24:00 [id number] 2022-05-23 00:00:00 2022-05-23 00:00:00 Telephone Simone Li [facility] 1.284.114 350.1.13.10 4.2.7.2.686 [id number] [facility] 2022-05-23 00:00:00 2022-05-23 00:00:00 Shobha Simone Li [facility] 1.2.840.114 350.1.13.10 4.2.7.2.686 [id number] [facility] 2022-05-22 11:30:00 2022-05-22 23:59:00 Outpatient SIMONE HOWARDOCHESIMONE [facility] [id number] [facility] 2022-05-22 11:30:00 2022-05-22 23:59:00 Outpatient Adrienne JENSIMONEE SIMONE [facility] [id number] [facility] 2022-05-22 10:22:49 2022-05-22 23:59:00 Hospital Encounter Jen Simone Sonam Sykes, [facility] 1..840.114 350.1.13.10 4.2.7.2.686 [id number] [facility] 2022-05-20 14:00:00 2022-05-20 14:00:00 Outpatient KOLE SEAY [facility] [id number] General acute hospital 2022-05-20 14:00:00 2022-05-20 14:00:00 Outpatient KOLE SEAY [facility] [id number] General acute hospital 2022-04-29 14:40:00 2022-04-29 15:13:05 Outpatient R JOHNNIE [facility] [id number] [facility] 2022-04-29 14:40:00 2022-04-29 15:13:05 Urgent Care Johnnie [facility] MARTHA ESPARZA[facility] 1..840.114 350.1.13.10 4.2.7.2.686 [id number] [facility] 2022-04-29 12:00:00 2022-04-29 12:00:00 Outpatient R LICHA BLAIR [facility] [id number] [facility] 2022-04-22 14:20:00 2022-04-22 16:00:54 Outpatient R SIMONE LI HOWARD [facility] [id number] [facility] 2022-04-22 14:20:00 2022-04-22 16:00:54 Office Visit Simone Li [facility] 1.2.840.114 350.1.13.10 4.2.7.2.686 [id number] [facility] 2022-04-22 00:00:00 2022-04-22 00:00:00 Orders Only Doctor Unassigned, [place] [facility] 1..840.114 350.1.13.10 4.2.7.2.686 [id number] [facility] 2022-03-22 13:00:00 2022-03-22 13:00:00 Outpatient R THERESE LOPEZ [facility] [id number] [facility] 2022-02-27 15:00:00 2022-02-27 15:00:00 Outpatient R ALESHIA DONALDSON [facility] [id number] [facility] 2022-02-16 00:00:00 2022-02-16 00:00:00 John Chapin [facility] 1..840.114 350.1.13.10 4.2.7.2.686 [id number] [facility] 2022-01-22 17:38:00 2022-01-22 19:06:00 Emergency X LATONYA WATKINS [facility] ERT [id number] [facility] 2022-01-22 17:38:00 2022-01-22 19:06:00 Emergency Latonya Watkins [facility] 1.0.114 350.1.13.10 4.2.7.2.686 [id number] [facility] 2022-01-20 13:40:00 2022-01-20 13:40:00 Urgent Care John Lorenz Kimberly [facility] MEDICAL OFFICE BUILD[facility] 1.0.114 350.1.13.10 4.2.7.2.686 [id number] 370 [id number] [facility] 2022-01-20 13:40:00 2022-01-20 12:26:37 Outpatient [facility] [id number] [facility] 2022-01-19 00:00:00 2022-01-19 00:00:00 Telephone Mary Carmen Tolentino [facility] 1.0.114 350.1.13.10 4.2.7.2.686 [id number] [facility] 2022-01-18 19:30:00 2022-01-18 19:45:00 Laboratory Only Only, Ang Db Test Berry [facility] MED[facility] OFF[facility] BUILD[facility] 1.84.114 350.1.13.10 4.2.7.2.686 [id number] [facility] 2022-01-18 19:30:00 2022-01-18 19:30:[address] [facility] [id number] [facility] 2022-01-14 00:00:00 2022-01-14 00:00:00 Nurse Triage Ingrid Branch [facility] 1..114 350.1.13.10 4.2.7.2.686 [id number] [facility] 2021-11-20 09:00:00 2021-11-20 09:00:00 Outpatient R DEANDRE WATKINS [facility] [id number] [facility] 2021-11-18 00:00:00 2021-11-18 00:00:00 Nurse Triage BarrieRhoda bell [facility] 1.840.114 350.1.13.10 4.2.7.2.686 [id number] [facility] 2021-10-25 21:55:00 2021-10-26 02:33:00 Emergency X TRISHA BARNARDJOSEE [facility] ERT [id number] [facility] 2021-10-25 21:55:00 2021-10-26 02:33:00 Emergency Trisha Barnardjosee Rand [facility] 1.840.114 350.1.13.10 4.2.7.2.686 [id number] [facility] 2021-10-25 00:00:00 2021-10-25 00:00:00 Orders Only Doctor Unassigned, [place] [facility] 1.84.114 350.1.13.10 4.2.7.2.686 [id number] [facility] 2021-10-24 00:00:00 2021-10-24 00:00:00 Telephone Kelechi [facility] 1.2840.114 350.1.13.10 4.2.7.2.686 [id number] [facility] 2021-10-20 20:00:00 2021-10-20 20:37:00 Outpatient R KELECHI JOHN [facility] [id number] [facility] 2021-10-20 19:54:07 2021-10-20 20:37:00 Urgent Care Kelechi [facility] ISAIAS[facility] 1.2840.114 350.1.13.10 4.2.7.2.686 [id number] 370 [id number] [facility] 2021-10-08 00:00:00 2021-10-08 00:00:00 Patient [facility] 1.2.840.114 350.1.13.10 4.2.7.2.686 [id number] [facility] 2021-09-25 00:00:00 2021-09-25 00:00:00 Patient Secure Msg Lopez [facility] MEDICAL OFFICE BUILDING 1.2.840.114 350.1.13.10 4.2.7.2.686 [id number] 220 [id number] [facility] 2021-09-21 11:36:49 2021-09-21 11:51:49 Leasing Director Visit Lab, Abel Pepper John [facility] Medical Office Building 1..840.114 350.1.13.10 4.2.7.2.686 [id number] [facility] 2021-09-21 11:30:00 2021-09-21 11:34:53 [facility] [id number] [facility] 2021-09-21 11:04:06 2021-09-21 11:34:53 Office Visit John [facility] MEDICAL OFFICE BUILDING 1.2.840.114 350.1.13.10 4.2.7.2.686 [id number] [facility] 2021-09-14 11:00:00 2021-09-14 11:00:00 Outpatient R [facility] [id number] [facility] 2021-09-13 00:00:00 2021-09-13 00:00:00 Telephone John Therese [facility] 1.2.840.114 350.1.13.10 4.2.7.2.686 [id number] [facility] 2021-09-10 14:30:00 2021-09-10 14:30:00 Outpatient R ASHVIN [facility] [id number] [facility] 2021-08-21 14:45:00 2021-08-21 14:45:00 Outpatient R FAN BOUCHER [facility] [id number] General acute hospital 2021-08-13 09:30:00 2021-08-13 09:30:00 Outpatient R MICHAELZOE [facility] [id number] [facility] 2021-08-13 00:00:00 2021-08-13 00:00:00 Refill Ashvin [facility] Medical Office Building 1..840.114 350.1.13.10 4.2.7.2.686 [id number] [facility] 2021-08-10 13:30:00 2021-08-10 13:30:00 Outpatient R ADRIANNE ROSARIO [facility] [id number] [facility] 2021-08-10 00:00:00 2021-08-10 00:00:00 Telephone Ashvin [facility] Medical Office Building 1..840.114 350.1.13.10 4.2.7.2.686 [id number] [facility] 2021-08-09 00:00:00 2021-08-09 00:00:00 Nurse Triage Supriya Gooden [facility] 1..840.114 350.1.13.10 4.2.7.2.686 [id number] [facility] 2021-08-09 00:00:00 2021-08-09 00:00:00 Nurse Triage Berkley Supriya [facility] 1.2840.114 350.1.13.10 4.2.7.2.686 [id number] [facility] 2021-08-08 12:00:00 2021-08-08 12:00:00 Outpatient Adrienne ROSARIOADRIANNE [facility] [id number] [facility] 2021-08-06 00:00:00 2021-08-06 00:00:00 Refill Leoncio Tavares [facility] REINFORCING ROD L[facility] 1.2.840.114 350.1.13.10 4.2.7.2.686 [id number] [facility] 2021-08-06 00:00:00 2021-08-06 00:00:00 [facility] 1.2.840.114 350.1.13.10 4.2.7.2.686 [id number] [facility] 2021-08-05 00:00:00 2021-08-05 00:00:00 Refill Ashvin [facility] 1.2.840.114 350.1.13.10 4.2.7.2.686 [id number] 220 [id number] [facility] 2021-08-05 00:00:00 2021-08-05 00:00:00 Refill Rickycarlos [facility] Building 1.2840.114 350.1.13.10 4.2.7.2.686 [id number] [facility] 2021-07-29 00:00:00 2021-07-29 00:00:00 Telephone Simone Li [facility] 1.2840.114 350.1.13.10 4.2.7.2.686 [id number] [facility] 2021-07-29 00:00:00 2021-07-29 00:00:00 Simone Marie [facility] 1.114 350.1.13.10 4.2.7.2.686 [id number] [id number] [facility] 2021-07-27 00:00:00 2021-07-27 00:00:00 Patient Secure Msg Doctor Unassigned, [place] [facility] 1..114 350.1.13.10 4.2.7.2.686 [id number] [facility] 2021-07-25 16:16:45 2021-07-25 16:46:45 Office Visit Manju Ferrera [facility] 1..114 350.1.13.10 4.2.7.2.686 [id number] [id number] [facility] 2021-07-25 16:16:45 2021-07-25 16:46:45 Office Visit Manju Ferrera [facility] 1.114 350.1.13.10 4.2.7.2.686 [id number] [facility] 2021-07-25 16:30:00 2021-07-25 16:30:00 Outpatient SIMONE HOWARD HOWARD [facility] [id number] [facility] 2021-07-19 00:00:00 2021-07-19 00:00:00 [facility] 1.84.114 350.1.13.10 4.2.7.2.686 [id number] [facility] 2021-07-19 00:00:00 2021-07-19 00:00:00 Jamie Del Angel [facility] Building 1.2840.114 350.1.13.10 4.2.7.2.686 [id number] [facility] 2021-07-10 01:55:00 2021-07-10 03:10:00 Emergency Romulo Lacey [facility] 1.2.840.114 350.1.13.10 4.2.7.2.686 [id number] [facility] 2021-05-29 10:54:04 2021-05-29 11:14:04 Urgent Care Provider, [facility] Urgent Care Cornell Colin [facility] Office Building One 1.2840.114 350.1.13.10 4.2.7.2.686 [id number] [facility] 2021-05-29 11:00:00 2021-05-29 11:00:00 Outpatient R CORNLEL COLIN [facility] [id number] [facility] 2021-05-23 00:00:00 2021-05-23 00:00:00 Patient Secure Msg Doctor Unassigned, [place] [facility] 1.2840.114 350.1.13.10 4.2.7.2.686 [id number] [facility] 2021-05-08 00:00:00 2021-05-08 00:00:00 Telephone [facility] 1.2840.114 350.1.13.10 4.2.7.2.686 [id number] 012 [id number] [facility] 2021-05-05 00:00:00 2021-05-05 00:00:00 Telephone [facility] 1.2840.114 350.1.13.10 4.2.7.2.686 [id number] [facility] 2021-05-04 00:00:00 2021-05-04 00:00:00 Transition of Care Leena Matson 1.2.840.1 04604.1.1 3.104.2.7 .3.693419 .8 [id number] [facility] 2021-05-01 13:39:00 2021-05-03 18:30:00 Hospital Encounter Dale Wallace Elena 1.2.840.1 38208.1.1 3.104.2.7 .3.354179 .8 [id number] [facility] 2021-05-01 00:00:00 2021-05-01 00:00:00 EXT [facility] OP Renea Keller EXT [facility] LOCATION 1.2.840.114 350.1.13.58 9.2.7.2.[id number] [facility] 2021-05-01 00:00:00 2021-05-01 00:00:00 EXT [facility] OP Renea Keller EXT [facility] LOCATION 1.2.840.114 350.1.13.58 9.2.7.2.[id number] [facility] 2021-05-01 00:00:00 2021-05-01 00:00:00 Travel 1.2.840.1 81805.1.1 3.104.2.7 .3.408630 .8 1.2.840.114 350.1.13.10 4.2.7.3.698 084.8 [id number] [facility] 2021-04-30 08:50:00 2021-04-30 15:15:00 Emergency Katelyn Lombardi 1.2.840.1 34284.1.1 3.104.2.7 .3.179303 .8 [id number] [facility] 2021-04-30 00:00:00 2021-04-30 00:00:00 Travel 1.2.840.1 58886.1.1 3.104.2.7 .3.168146 .8 1.2.840.114 350.1.13.10 4.2.7.3.698 084.8 [id number] [facility] 2021-04-28 13:21:00 2021-04-28 22:22:00 Emergency Nga Jeffery 1.2.840.1 87089.1.1 3.104.2.7 .3.749616 .8 [id number] [facility] 2021-04-28 13:21:00 2021-04-28 22:22:00 Emergency X NGA JEFFERY [facility] ERT [id number] [facility] 2021-04-28 00:00:00 2021-04-28 00:00:00 Travel 1.2.840.1 82861.1.1 3.104.2.7 .3.149110 .8 1.2.840.114 350.1.13.10 4.2.7.3.698 084.8 [id number] [facility] 2021-04-27 04:25:00 2021-04-27 07:49:00 Emergency Dinesh Aleman 1.2.840.1 93055.1.1 3.104.2.7 .3.793992 .8 [id number] [facility] 2021-04-26 14:32:00 2021-04-26 17:38:00 Emergency Latonya Watkins 1.2.840.1 64794.1.1 3.104.2.7 .3.128050 .8 [id number] [facility] 2021-04-26 00:00:00 2021-04-26 00:00:00 Travel 1.2.840.1 87191.1.1 3.104.2.7 .3.526580 .8 1.2.840.114 350.1.13.10 4.2.7.3.698 084.8 [id number] [facility] 2021-04-20 00:00:00 2021-04-20 00:00:00 Telephone Andreea Silviacrystal Chisholm 1.2.840.1 49139.1.1 3.104.2.7 .3.440411 .8 [id number] [facility] 2021-04-08 11:36:00 2021-04-10 11:14:00 Hospital Encounter Donaldo Landrum 1.2.840.1 11789.1.1 3.104.2.7 .3.292130 .8 [id number] [facility] 2021-04-09 09:00:00 2021-04-09 09:00:00 Outpatient JIMBO ENGEL [facility] [id number] [facility] 2021-04-08 13:48:00 2021-04-08 19:52:00 Anesthesia Event Rodrigo Leo Walt 1.2.840.1 07275.1.1 3.104.2.7 .3.503701 .8 [id number] [facility] 2021-04-08 00:00:00 2021-04-08 00:00:00 Nurse Triage Latosha Ortiz 1.2.840.1 62452.1.1 3.104.2.7 .3.817327 .8 [id number] [facility] 2021-04-08 00:00:00 2021-04-08 00:00:00 Orders Only Doctor Unassigned, [place] 1.2.840.1 72635.1.1 3.104.2.7 .3.973372 .8 [id number] [facility] 2021-04-08 00:00:00 2021-04-08 00:00:00 Travel 1.2.840.1 53586.1.1 3.104.2.7 .3.667147 .8 1.2.840.114 350.1.13.10 4.2.7.3.698 084.8 [id number] [facility] 2021-04-06 10:52:00 2021-04-06 13:55:00 Hospital Encounter Romulo Flores 1.2.840.1 95328.1.1 3.104.2.7 .3.151647 .8 [id number] [facility] 2021-04-06 00:00:00 2021-04-06 00:00:00 Travel 1.2.840.1 59577.1.1 3.104.2.7 .3.903314 .8 1.2.840.114 350.1.13.10 4.2.7.3.698 084.8 [id number] [facility] 2021-03-30 09:00:00 2021-03-30 09:00:00 Outpatient R JIMBO VALDEZ [facility] [id number] [facility] 2021-03-29 00:00:00 2021-03-29 00:00:00 Telephone Romulo Xavier 1.2.840.1 68374.1.1 3.104.2.7 .3.248909 .8 [id number] [facility] 2021-03-27 13:15:00 2021-03-27 13:15:00 Outpatient R JIMBO VALDEZ [facility] [id number] [facility] 2021-03-27 10:21:35 2021-03-27 11:21:35 Ancillary Procedure Jibmo Valdez R 1.2.840.1 45017.1.1 3.104.2.7 .3.958482 .8 [id number] [facility] [facility] 2021-03-27 08:34:05 2021-03-27 10:32:28 Routine Visit Jimbo Valdez R 1.2.840.1 67765.1.1 3.104.2.7 .3.606987 .8 [id number] [facility] 2021-03-27 08:01:19 2021-03-27 08:33:20 Leasing Director Visit LucaJayme R 1.2.840.1 52795.1.1 3.104.2.7 .3.157814 .8 [id number] [facility] 2021-03-27 00:00:00 2021-03-27 00:00:00 Abstract Jimbo Valdez R 1.2.840.1 36383.1.1 3.104.2.7 .3.575142 .8 [id number] [facility] 2021-03-27 00:00:00 2021-03-27 00:00:00 Travel 1.2.840.1 71377.1.1 3.104.2.7 .3.557149 .8 1.2.840.114 350.1.13.10 4.2.7.3.698 084.8 [id number] [facility] 2021-03-23 09:48:01 2021-03-23 10:48:01 Ancillary Procedure Jimbo Valdez R 1.2.840.1 81011.1.1 3.104.2.7 .3.236067 .8 [id number] [facility] 2021-03-23 08:06:10 2021-03-23 08:53:07 Routine Visit Jimbo Valdez R 1.2.840.1 97810.1.1 3.104.2.7 .3.522493 .8 [id number] [facility] 2021-03-23 08:15:00 2021-03-23 08:15:00 Outpatient R JIMBO VALDEZ [facility] [id number] [facility] 2021-03-23 00:00:00 2021-03-23 00:00:00 Travel 1.2.840.1 21212.1.1 3.104.2.7 .3.859331 .8 1.2.840.114 350.1.13.10 4.2.7.3.698 084.8 [id number] [facility] 2021-03-22 00:00:00 2021-03-22 00:00:00 Case Management Romulo Araya 1.2.840.1 77853.1.1 3.104.2.7 .3.060333 .8 [id number] [facility] 2021-03-19 13:30:00 2021-03-19 13:30:00 Outpatient R [facility] [id number] [facility] 2021-03-19 07:48:20 2021-03-19 12:14:41 Telemedici ne Jayme Gandhi [facility], [facility] 1.2.840.1 06871.1.1 3.104.2.7 .3.198998 .8 [id number] [facility] 2021-02-28 00:00:00 2021-02-28 00:00:00 Telephone Jimbo Valdez 1.2.840.1 19402.1.1 3.104.2.7 .3.345636 .8 [id number] [facility] 2021-02-28 00:00:00 2021-02-28 00:00:00 Case Management Leoncio Tavares 1.2.840.1 00885.1.1 3.104.2.7 .3.200231 .8 [id number] [facility] 2021-02-27 08:00:00 2021-02-27 08:00:00 Outpatient R JIMBO VALDEZ [facility] [id number] [facility] 2021-02-27 00:00:00 2021-02-27 00:00:00 Telephone Leoncio Tavares 1.2.840.1 84725.1.1 3.104.2.7 .3.920876 .8 [id number] [facility] 2021-02-21 07:45:00 2021-02-21 07:45:00 Outpatient JIMBO ENGEL [facility] [id number] [facility] 2021-02-20 00:00:00 2021-02-20 00:00:00 Patient Outreach Jacek Summers 1.2840.1 79171.1.1 3.104.2.7 .3.814729 .8 [id number] [facility] 2021-02-19 11:38:40 2021-02-19 14:24:27 Telemedici ne Visit [facility] 1.2840.1 16678.1.1 3.104.2.7 .3.468452 .8 [id number] [facility] 2021-02-19 11:00:00 2021-02-19 11:00:00 Outpatient JIMBO ENGEL [facility] [id number] [facility] 2021-02-18 00:00:00 2021-02-18 00:00:00 Nurse Triage Micaela Rosenbaum 1.2840.1 75681.1.1 3.104.2.7 .3.261196 .8 [id number] [facility] 2021-02-18 00:00:00 2021-02-18 00:00:00 Nurse Triage Ingrid Branch 1.2840.1 46892.1.1 3.104.2.7 .3.126322 .8 [id number] [facility] 2021-02-14 18:20:00 2021-02-14 18:20:00 Outpatient VIVIENNE JOHNSON [facility] [id number] [facility] 2021-02-14 17:31:45 2021-02-14 17:56:04 Urgent Care Vivienne [facility] 1.2840.1 40478.1.1 3.104.2.7 .3.347335 .8 [id number] [facility] 2021-02-14 17:20:00 2021-02-14 17:40:00 Laboratory [facility] 1.2.840.1 55359.1.1 3.104.2.7 .3.342265 .8 [id number] [facility] 2021-02-14 17:20:00 2021-02-14 17:20:00 Outpatient R VIVIENNE HOFFMANN [facility] [id number] [facility] 2021-02-14 00:00:00 2021-02-14 00:00:00 Travel 1.2.840.1 63421.1.1 3.104.2.7 .3.248807 .8 1.2.840.114 350.1.13.10 4.2.7.3.698 084.8 [id number] [facility] 2021-02-08 00:00:00 2021-02-08 00:00:00 Orders Only Doctor Unassigned, [place] 1.2.840.1 57399.1.1 3.104.2.7 .3.759257 .8 [id number] [facility] 2021-02-07 14:38:38 2021-02-07 15:29:28 Routine Visit Jimbo Valdez 1.2.840.1 64015.1.1 3.104.2.7 .3.269460 .8 [id number] [facility] 2021-02-07 14:45:00 2021-02-07 14:45:00 Outpatient R JIMBO VALDEZ [facility] [id number] [facility] 2021-02-07 00:00:00 2021-02-07 00:00:00 Travel 1.2.840.1 23518.1.1 3.104.2.7 .3.624380 .8 1.2.840.114 350.1.13.10 4.2.7.3.698 084.8 [id number] [facility] 2021-02-05 00:00:00 2021-02-05 00:00:00 Abstract Jimbo Valdez 1.2.840.1 85386.1.1 3.104.2.7 .3.568332 .8 [id number] [facility] 2021-02-02 13:31:41 2021-02-02 14:01:41 Leasing Director Visit Dorothy SotomarlysBlanca man 1.2.840.1 58225.1.1 3.104.2.7 .3.089804 .8 [id number] [facility] 2021-02-02 13:30:00 2021-02-02 13:30:00 Outpatient P [facility] [id number] [facility] 2021-02-02 00:00:00 2021-02-02 00:00:00 Telephone Aleshia Donaldson 1..840.1 18750.1.1 3.104.2.7 .3.292952 .8 [id number] [facility] 2021-02-01 10:00:00 2021-02-01 10:00:00 Outpatient R [facility] [id number] [facility] 2021-01-31 00:00:00 2021-01-31 00:00:00 Telephone Jimbo Valdez [facility] 1..840.114 350.1.13.10 4.2.7.2.686 [id number] [facility] 2021-01-26 09:58:34 2021-01-26 11:24:10 Routine Visit Aleshia Donaldson [facility] 1..840.114 350.1.13.10 4.2.7.2.686 [id number] [facility] 2021-01-26 10:00:00 2021-01-26 10:00:00 Outpatient R MONICA DONALDSONOLA [facility] [id number] [facility] 2021-01-23 00:00:00 2021-01-23 00:00:00 Case Management Eulogio Vincent [facility] 1..840.114 350.1.13.10 4.2.7.2.686 [id number] [facility] 2021-01-12 08:15:00 2021-01-12 08:15:00 Outpatient JIMBO ENGEL [facility] [id number] [facility] 2021-01-08 13:45:00 2021-01-08 13:45:00 Outpatient JIMBO ENGEL [facility] [id number] [facility] 2021-01-01 14:00:00 2021-01-01 14:00:00 Outpatient JAMIE SONI [facility] [id number] [facility] 2020-12-25 14:30:12 2020-12-25 15:20:56 Office Visit Faculty, Abel VargasGurjit Vyas [facility] ..840.114 350.1.13.10 4.2.7.2.686 [id number] [facility] 2020-12-25 14:30:00 2020-12-25 14:30:00 Outpatient UGRJIT ARAGON SHANNON [facility] [id number] [facility] 2020-12-11 09:00:00 2020-12-11 09:00:00 Outpatient JIMBO ENGEL [facility] [id number] [facility] 2020-12-05 00:00:00 2020-12-05 00:00:00 Jimbo Ramsay [facility]ILD [facility] 1..840.114 350.1.13.10 4.2.7.2.686 [id number] [facility] 2020-12-04 13:04:35 2020-12-04 14:19:35 Leasing Director Visit Ultrasound, Jayme Hinojosa [facility] 1.2.840.114 350.1.13.10 4.2.7.2.686 [id number] [facility] 2020-12-04 13:00:00 2020-12-04 13:00:00 Outpatient P [facility] [id number] [facility] 2020-11-30 00:00:00 2020-11-30 00:00:[address] [facility] 1.2.840.114 350.1.13.10 4.2.7.2.686 [id number] [facility] 2020-11-30 00:00:00 2020-11-30 00:00:00 Patient Secure Mspeyman Lock [facility] 1.2.840.114 350.1.13.10 4.2.7.2.686 [id number] [facility] 2020-11-27 13:30:00 2020-11-27 13:30:00 Outpatient R [facility] [id number] [facility] 2020-11-16 15:00:00 2020-11-16 15:00:00 Outpatient R [facility] [id number] [facility] 2020-11-11 00:00:00 2020-11-11 00:00:00 Telephone Jimbo Valdez [facility] 1.2.840.114 350.1.13.10 4.2.7.2.686 [id number] [facility] 2020-11-05 22:07:00 2020-11-06 01:11:00 Emergency Yarima, Wakili S [facility] 1.2840.114 350.1.13.10 4.2.7.2.686 [id number] [facility] 2020-11-05 22:07:00 2020-11-06 01:11:00 Emergency X TRAMAINE BARNARD [facility] ERT [id number] [facility] 2020-11-05 00:00:00 2020-11-05 00:00:00 Nurse Triage Latosha Ortiz [facility] 1.2840.114 350.1.13.10 4.2.7.2.686 [id number] [facility] 2020-11-03 00:00:00 2020-11-03 00:00:00 Patient Secure Msg Doctor Unassigned, [place] [facility] 1.2840.114 350.1.13.10 4.2.7.2.686 [id number] [facility] 2020-11-02 14:00:00 2020-11-02 14:00:00 Outpatient R JIMBO VALDEZ [facility] [id number] [facility] 2020-11-02 12:44:37 2020-11-02 13:13:31 Routine Visit Jimbo Valdez [facility] 1.2840.114 350.1.13.10 4.2.7.2.686 [id number] [facility] 2020-10-31 13:34:07 2020-10-31 14:47:54 Office Visit Fan Boucher [facility] 1.2840.114 350.1.13.10 4.2.7.2.686 [id number] [facility] 2020-10-31 13:30:00 2020-10-31 13:30:00 Outpatient R FAN BOUCHER [facility] [id number] [facility] 2020-10-31 00:00:00 2020-10-31 00:00:00 Transition of Care Mela Robertson [facility] 1.20.114 350.1.13.10 4.2.7.2.686 [id number] [facility] 2020-10-25 02:42:00 2020-10-29 11:58:00 Hospital Encounter Latonya Watkins Laura J [facility] 1.2.114 350.1.13.10 4.2.7.2.686 [id number] [facility] 2020-10-25 00:00:00 2020-10-25 00:00:00 Telephone Jimbo Valdez [facility] 1..114 350.1.13.10 4.2.7.2.686 [id number] [facility] 2020-10-21 23:41:00 2020-10-24 17:12:00 Hospital Encounter Tramaine Barnard Kamakshi [facility] 1.2.114 350.1.13.10 4.2.7.2.686 [id number] [facility] 2020-10-23 15:00:00 2020-10-23 15:00:00 Outpatient R [facility] [id number] [facility] 2020-10-21 00:00:00 2020-10-21 00:00:00 Nurse Triage Neema Andrew [facility] 1..114 350.1.13.10 4.2.7.2.686 [id number] [facility] 2020-10-20 15:30:00 2020-10-20 18:50:00 Emergency Yun Coronado [facility] 1.2.840.114 350.1.13.10 4.2.7.2.686 [id number] [facility] 2020-10-20 18:30:00 2020-10-20 18:30:00 Outpatient R [facility] [id number] [facility] 2020-10-20 00:00:00 2020-10-20 00:00:00 Telephone Jimbo Valdez [facility] 1..114 350.1.13.10 4.2.7.2.686 [id number] [facility] 2020-10-20 00:00:00 2020-10-20 00:00:00 Orders Only Doctor Unassigned, [place] [facility] 1..114 350.1.13.10 4.2.7.2.686 [id number] [facility] 2020-10-16 14:30:00 2020-10-16 15:00:00 Telemedici ne Visit Faculty, Abel Jo Blanca Culp [facility] 1..114 350.1.13.10 4.2.7.2.686 [id number] [facility] 2020-10-16 14:30:00 2020-10-16 14:30:00 Outpatient R [facility] [id number] [facility] 2020-10-09 13:00:00 2020-10-09 13:00:00 Outpatient R [facility] [id number] [facility] 2020-09-27 00:00:00 2020-09-27 00:00:00 Telephone , PatriaN p/High [facility] 1..114 350.1.13.10 4.2.7.2.686 [id number] 107 [id number] [facility] 2020-09-21 00:00:00 2020-09-21 00:00:00 Telephone Risk, Shaquillechp-N p/High [facility] 1.2840.114 350.1.13.10 4.2.7.2.686 [id number] [facility] 2020-09-20 08:30:00 2020-09-20 08:30:00 Outpatient R [facility] [id number] [facility] 2020-09-15 00:00:00 2020-09-15 00:00:00 Abstract Jimbo Valdez R [facility] 1.2840.114 350.1.13.10 4.2.7.2.686 [id number] 107 [id number] [facility] 2020-09-15 00:00:00 2020-09-15 00:00:00 Patient Secure Msg Doctor Unassigned, [place] [facility] 1.20.114 350.1.13.10 4.2.7.2.686 [id number] 107 [id number] [facility] 2020-09-14 15:30:00 2020-09-14 15:30:00 Outpatient R [facility] [id number] [facility] 2020-09-14 08:46:13 2020-09-14 09:13:48 Routine Visit Risk, Shaquillechp-N p/High Gurjit Summers Cindy Kay [facility] 1.20.114 350.1.13.10 4.2.7.2.686 [id number] 107 [id number] [facility] 2020-09-14 08:07:32 2020-09-14 08:37:32 Leasing Director Visit Ultrasound, Gurjit Gracai [facility] 1.2840.114 350.1.13.10 4.2.7.2.686 [id number] [facility] 2020-09-14 08:00:00 2020-09-14 08:00:00 Outpatient GURJIT ARAGON SHANNON [facility] [id number] [facility] 2020-09-11 11:00:00 2020-09-11 11:00:00 Outpatient GURJIT ARAGON SHANNON [facility] [id number] [facility] 2020-09-11 00:00:00 2020-09-11 00:00:00 Telephone Faculty, Abel Jo [facility] 1.2.840.114 350.1.13.10 4.2.7.2.686 [id number] [facility] 2020-09-08 00:00:00 2020-09-08 00:00:00 RefJimbo Tatum [facility] 1.2.840.114 350.1.13.10 4.2.7.2.686 [id number] 107 [id number] [facility] 2020-09-07 00:00:00 2020-09-07 00:00:00 Telephone Faculty, Abel Jo [facility] 1.2.840.114 350.1.13.10 4.2.7.2.686 [id number] [facility] 2020-09-05 00:00:00 2020-09-05 00:00:00 Telephone Jimbo Valdez [facility] 1.2840.114 350.1.13.10 4.2.7.2.686 [id number] 107 [id number] [facility] 2020-09-04 15:30:00 2020-09-04 15:30:00 Outpatient R [facility] [id number] [facility] 2020-09-04 00:00:00 2020-09-04 00:00:00 Patient Secure Msg Doctor Unassigned, [place] [facility] 1.2840.114 350.1.13.10 4.2.7.2.686 [id number] [facility] 2020-09-01 08:00:00 2020-09-01 08:00:00 Outpatient R JIMBO VALDEZ [facility] [id number] [facility] 2020-08-28 13:00:00 2020-08-28 13:00:00 Outpatient R [facility] [id number] [facility] 2020-08-25 00:00:00 2020-08-25 00:00:00 Telephone Jimbo Valdez [facility] RE[facility] [employer] [employer] 1.2.840.114 350.1.13.10 4.2.7.2.686 [id number] [facility] 2020-08-24 00:00:00 2020-08-24 00:00:00 Telephone Jimbo Valdez [facility] 1.2840.114 350.1.13.10 4.2.7.2.686 [id number] [facility] 2020-08-23 08:39:26 2020-08-23 10:59:06 Initial Visit Jimbo Valdez [facility] 1.2.840.114 350.1.13.10 4.2.7.2.686 [id number] [facility] 2020-08-23 08:00:00 2020-08-23 08:00:00 Outpatient R [facility] [id number] [facility] 2020-08-23 00:00:00 2020-08-23 00:00:00 Orders Only Doctor Unassigned, [place] [facility] 1.840.114 350.1.13.10 4.2.7.2.686 [id number] [facility] 2020-08-22 07:51:06 2020-08-22 09:54:19 Office Visit Simone Li [facility] 1.284.114 350.1.13.10 4.2.7.2.686 [id number] [facility] 2020-08-22 08:00:00 2020-08-22 08:00:00 Outpatient R SIMONE LI HOWARD [facility] [id number] [facility] 2020-08-22 00:00:00 2020-08-22 00:00:00 Letter (Out) Smione Li [facility] 1.2.114 350.1.13.10 4.2.7.2.686 [id number] [facility] 2020-08-10 00:00:00 2020-08-10 00:00:00 Patient Outreach Nabil ChayitoRubia Treviño [facility] 1.2.114 350.1.13.10 4.2.7.2.686 [id number] [facility] 2020-08-10 00:00:00 2020-08-10 00:00:00 Patient Secure Msg Doctor Unassigned, [place] [facility] 1.114 350.1.13.10 4.2.7.2.686 [id number] [facility] 2020-08-09 02:23:14 2020-08-09 05:34:00 Emergency nullFlavo r [facility] [id number] Marcelino Cervantes 2020-08-08 21:23:00 2020-08-09 00:34:00 [id number] 2020-08-08 19:30:00 2020-08-08 20:48:00 Emergency [facility] 1.284.114 350.1.13.10 4.2.7.2.686 [id number] [facility] 2020-08-07 06:08:00 2020-08-07 07:14:00 Emergency Dinesh [facility] 1.2.840.114 350.1.13.10 4.2.7.2.686 [id number] [facility] 2020-08-05 05:31:00 2020-08-05 07:18:00 Emergency Tramaine Barnard [facility] 1.2.840.114 350.1.13.10 4.2.7.2.686 [id number] [facility] 2020-08-04 13:39:00 2020-08-04 17:37:00 Emergency Latonya Watkins [facility] 1.2.840.114 350.1.13.10 4.2.7.2.686 [id number] [facility] 2020-08-04 12:52:37 2020-08-04 13:12:37 Urgent Care Provider, [facility] 1.2840.114 350.1.13.10 4.2.7.2.686 [id number] [facility] 2020-08-04 13:00:00 2020-08-04 13:00:00 Outpatient R CORNELL COLIN [facility] [id number] [facility] 2020-08-04 00:00:00 2020-08-04 00:00:00 Letter (Out) Lakesha Mills [facility] 1.2840.114 350.1.13.10 4.2.7.2.686 [id number] [facility] 2020-08-04 00:00:00 2020-08-04 00:00:00 Patient Secure Msg Doctor Unassigned, [place] [facility] 1.2840.114 350.1.13.10 4.2.7.2.686 [id number] [facility] 2020-08-03 09:40:03 2020-08-03 10:41:21 Urgent Care Pob1, Acute Care [facility] 1.2840.114 350.1.13.10 4.2.7.2.686 [id number] [facility] 2020-08-03 10:00:00 2020-08-03 10:00:00 Outpatient R [facility] [id number] [facility] 2020-08-03 00:00:00 2020-08-03 00:00:00 Nurse Triage Supriya Gooden [facility] 1.2840.114 350.1.13.10 4.2.7.2.686 [id number] [facility] 2020-08-03 00:00:00 2020-08-03 00:00:00 Telephone Po, Acute Care [facility] 1.0.114 350.1.13.10 4.2.7.2.686 [id number] [facility] 2020-07-25 13:00:00 2020-07-25 13:00:00 Outpatient R FRANCESCA CHAVEZ [facility] [id number] [facility] 2020-07-18 00:00:00 2020-07-18 00:00:00 Letter (Out) Gregory [facility] [place] 1.2.840.114 350.1.13.10 4.2.7.2.686 [id number] [facility] 2020-07-17 00:00:00 2020-07-17 00:00:00 Telephone Keshav Rosas [facility] [place] 1.2.840.114 350.1.13.10 4.2.7.2.686 [id number] [facility] 2020-07-06 14:30:00 2020-07-06 14:30:00 Outpatient R [facility] [id number] [facility] 2020-07-06 14:09:04 2020-07-06 14:24:04 Office Visit [facility] Jenkins 1.2.840.114 350.1.13.10 4.2.7.2.686 [id number] [facility] 2020-07-06 00:00:00 2020-07-06 00:00:00 Letter (Out) [facility] jonathan Jenkins 1.2.840.114 350.1.13.10 4.2.7.2.686 [id number] [facility] 2020-04-19 00:00:00 2020-04-19 00:00:00 Orders Only Doctor Unassigned, [place] [facility] 1.2.840.114 350.1.13.10 4.2.7.2.686 [id number] [facility] 2020-04-04 00:00:00 2020-04-04 00:00:00 Patient Secure Msg Doctor Unassigned, [place] [facility] 1.2.840.114 350.1.13.10 4.2.7.2.686 [id number] [facility] 2020-04-01 11:55:29 2020-04-03 12:56:00 Outpatient X PIETER DONALDSON [facility] SNS [id number] General acute hospital 2020-04-01 11:55:29 2020-04-03 12:56:00 Emergency Ezekiel Brooks [facility] 1.2.840.114 350.1.13.10 4.2.7.2.686 [id number] [facility] 2020-03-30 17:26:13 2020-03-30 21:05:00 Emergency X TRAMAINE BARNARD [facility] ERT [id number] [facility] 2020-03-30 17:26:13 2020-03-30 21:05:00 Emergency SinclairAustyn bell Wakili S [facility] 1.2.840.114 350.1.13.10 4.2.7.2.686 [id number] [facility] 2020-03-20 13:00:00 2020-03-20 13:00:00 Outpatient R SAHVIN [facility] [id number] [facility] 2020-03-20 08:21:22 2020-03-20 08:51:22 Telemedici ne [facility] 1.2.840.114 350.1.13.10 4.2.7.2.686 [id number] [facility] 2020-03-20 00:00:00 2020-03-20 00:00:00 Telephone Pcp, Patient Does Not Have A [facility] 1.2.840.114 350.1.13.10 4.2.7.2.686 [id number] [facility] 2019-08-20 01:33:00 2019-08-20 03:35:00 Hospital Encounter Corinne Fitzpatricken Shalom [facility] 1.2840.114 350.1.13.10 4.2.7.2.686 [id number] [facility] 2019-08-20 00:00:00 2019-08-20 00:00:00 Orders Only Doctor Unassigned, [place] [facility] 1.2.840.114 350.1.13.10 4.2.7.2.686 [id number] [facility] 2019-08-13 00:00:00 2019-08-13 00:00:00 Abstract Aleshia Donaldson [facility] REINFORCING ROD LAYER [facility]ILD [facility] 1.2.840.114 350.1.13.10 4.2.7.2.686 [id number] [facility] 2019-08-11 15:12:02 2019-08-11 15:59:30 Leasing Director Visit Ultrasound, Donaldo Sheets [facility] REINFORCING ROD LAYER [facility] & CHILD [facility] 1.2.840.114 350.1.13.10 4.2.7.2.686 [id number] [facility] 2019-08-04 00:00:00 2019-08-04 00:00:00 Kat Lobo [facility] REINFORCING ROD LAYER [facility] & CHILD [facility] 1.2.840.114 350.1.13.10 4.2.7.2.686 [id number] [facility] 2019-08-03 00:00:00 2019-08-03 00:00:00 Telephone Risk, Ang-Rmchp-N p/High [facility] 1.2.840.114 350.1.13.10 4.2.7.2.686 [id number] [facility] 2019-07-29 00:00:00 2019-07-29 00:00:00 Nurse Triage Tong Smith [facility] 1.2.840.114 350.1.13.10 4.2.7.2.686 [id number] [facility] 2019-07-17 00:00:00 2019-07-17 00:00:00 Nurse Triage Mira Perez [facility] 1.2.840.114 350.1.13.10 4.2.7.2.686 [id number] [facility] 2019-07-15 14:29:49 2019-07-15 15:01:56 Routine Visit Risk, Ang-Rmchp-N p/High Mary Carmen Lacey [facility] REINFORCING ROD LAYER [facility]ILD [facility] 1.2.840.114 350.1.13.10 4.2.7.2.686 [id number] [facility] 2019-07-15 00:00:00 2019-07-15 00:00:00 Orders Only Doctor Unassigned, [place] [facility] 1.2.840.114 350.1.13.10 4.2.7.2.686 [id number] [facility] 2019-07-08 00:00:00 2019-07-08 00:00:00 Abstract Aleshia Donaldson [facility] REINFORCING R[facility] LAYER [facility] 1.2.840.114 350.1.13.10 4.2.7.2.686 [id number] [facility] 2019-06-30 08:31:45 2019-06-30 09:46:45 Leasing Director Visit 5, [facility] 1.2.840.114 350.1.13.10 4.2.7.2.686 [id number] [facility] 2019-06-30 07:51:20 2019-06-30 08:31:12 Office Visit Christina Barrios [facility] 1.2.840.114 350.1.13.10 4.2.7.2.686 [id number] [facility] 2019-05-03 14:00:00 2019-05-03 14:14:19 Outpatient P JAYME CRANE [facility] [id number] [facility] 2019-04-05 15:30:00 2019-04-05 14:50:30 Outpatient ADRIENNE YBARRA SANGEETA [facility] [id number] [facility] 2018-07-22 13:40:00 2018-07-22 13:40:00 Appointmen t; GISELLE DANIELS M.D. CARHILL, AUBREY, M.D. [facility] [id number] [place] [facility] 2018-05-13 15:40:00 2018-05-13 15:40:00 Appointmen t; GISELLE DANIELS M.D. CARHILL, AUBREY, M.D. [facility] [id number] [place] [facility] 2017-04-14 15:30:00 2017-04-14 15:30:00 Appointmen t; GISELLE DANIELS M.D. CARHILL, AUBREY, M.D. [facility] [id number] [place] [facility] 2017-04-14 08:30:00 2017-04-14 08:30:00 Appointmen t; GISELLE DANIELS M.D. CARHILL, AUBREY, M.D. [facility] [id number] [place] [facility] 2017-03-03 15:00:00 2017-03-03 15:00:00 Appointmen t; GISELLE DANIELS M.D. CARHILL, AUBREY, M.D. [facility] [id number] [place] [facility] 2016-12-30 13:00:00 2016-12-30 13:00:00 Appointmen t; GISELLE DANIELS M.D. CARHILL, AUBREY, M.D. [facility] [id number] [place] [facility] [facility] 2014-05-24 19:02:00 2014-05-24 22:25:00 [facility] [id number] Marcelino Cervantes Results Test Description Test Time Test Comments Results Result Co mments Source [facility] [id number] 16:53:00* Test Item Value Reference Range Interpretation Comme nts POCT PREG (test code = 1605) Negative On board controls acceptable with C Line (test code = 3574) Yes POCT PREG LOT # (test code = 3575) POCT PREG TEST DATE (test code = 3576) RANDI (test code = RANDI) accurate developme nt and interpretation of all internal controls Lab Interpretation (test code = 64489-4) Normal [facility] Urinalysis w/o Specific [id number] 19:26:00* Test Item Value Reference Range Interpretation Comme nts POCT PH U (test code = 3254) 5 mg/dl 5-8 POCT U LEUK EST (test code = 3263) Negative Negative - Negative POCT U NIT (test code = 3262) Negative Negative - Negati ve POCT U PROT (test code = 3259) Negative Negative - Negat guy POCT U GLU (test code = 3256) Negative Negative - Negati ve POCT U KETONE (test code = 3258) Negative Negative - Neg ative POCT U BLD (test code = 3257) Negative Negative - Negati ve [facility] [id number] 20:23:00* Test Item Value Reference Range Interpretation Comme nts POCT PREG (test code = 1605) Negative On board controls acceptable with C Line (test code = 3574) Yes POCT PREG LOT # (test code = 3575) POCT PREG TEST DATE (test code = 3576) RANDI (test code = RANDI) accurate developme nt and interpretation of all internal controls General acute hospital PELVIS COMPLETE WITH [id number] 22:03:20ULTRASOUND PELVIC COMPLETE WITH TRANSVAGINAL Ordering Physician: EDSON BERGMAN Clinical History: Worsening pelvic pain. Technique: ?Examination was done transabdominally and endovaginally.Multiple transverse and sagittal images of the ovaries and uterus wereobtained. ?Images were permanently saved to the PACS. FINDINGS: COMPARISON: CT scan of the abdomen and pelvis from 05/25/2022. Pelvicultrasound from 11/05/2020 Uterus measures 8.4 x 5.0 x 7.5 cm. The ovaries are not well visualized transabdominally. There is a small amount of free fluid in the posterior cul-de-sac of thepelvis measuring 4.8 x 3.9 x 2.3 cm The cervix appears normal with the exception of a tiny nabothian cyst. Endometrium measures 8 mm in thickness. Right ovary measures 2.7 x 1.0 x 1.7 cm. There are few tiny follicles onthe right ovary. Tiny amount of free fluid in the right adnexa. Left ovary measures 4.4 x 1.8 x 2.4 cm. Tiny amount of fluid in the leftadnexa There is color Doppler flow to the ovaries. No fibroidsidentified [facility] Urinal[facility] W Specific [id number] 20:38:00* Test Item Value Reference Range Interpretation Comme nts POCT U SP GRAV (test code = 3255) 1.015 mg/dl 1.005-1.025 POCT PH U (test code = 3254) 6 mg/dl 5-8 POCT U LEUK EST (test code = 3263) trace Negative - Negative POCT U NIT (test code = 3262) neg Negative - Negati ve POCT U PROT (test code = 3259) trace Negative - Negative POCT U GLU (test code = 3256) normal Negative - Negati ve POCT U KETONE (test code = 3258) neg Negative - Negative POCT U UROBILI (test code = 3260) normal 0.2-1 POCT U BILI (test code = 3261) neg Negative - Negative POCT U BLD (test code = 3257) about 250 Negative - Negati ve POCT U COLOR (test code = 3266) yellow POCT U APPEAR (test code = 3267) mucus [facility] (TTE)2024-06-03 01:15:52* Test Item Value Reference Range Interpretation Comme nts Height (test code = 5796607228) 65 in Weight (test code = 4098632951) 182 lbs Systolic BP (test code = 2819789655) 113 mmHg Diastolic BP (test code = 1740335534) 66 mmHg Heart Rate (test code = 9860444639) 71 bpm RVOT diameter (test code = 5722817818) 1.98 cm RVOT Proximal Diameter (test code = 1704671210) 2.90 cm Ao root diam (test code = 0487814166) 2.42 cm Aortic root (test code = 5784938982) 2.42 cm Ao root annulus (test code = 5344546525) 2.42 cm BSA (test code = 9525273415) 1.90 m2 LVOT diameter (test code = 7092536774) 1.86 cm LVOT area (test code = 5604263630) 2.70 cm2 LA size (test code = 3964183009) 3.2 cm ACS (test code = 0457207382) 1.93 cm LVIDD (test code = 0050878025) 4.50 cm Left Ventricular End Diastolic Volume by Teichholz Method (test code = 0424356) 92.8 mL IVS (test code = 9692188235) 0.87 cm Interventricular Septum Diastolic Thickness by 2D (test code = 9422610) 0.87 cm LVPWD (test code = 2815790724) 0.80 cm PW (test code = 6209009085) 0.80 cm 0.6-1.1 EF(Teich) (test code = 6564272878) 59.40 % LVIDS (test code = 6295114715) 3.10 cm Left Ventricular End Systolic Volume by Teichholz Method (test code = 5411369) 37.7 mL FS (test code = 5271745006) 31 % EF - 2D (test code = 77477761) 59.40 % PV PEAK VELOCITY (test code = 7216675622) 84.4 cm/s PV peak gradient (test code = 0005534086) 2.8 mmHg MV E-F slope (test code = 1693885973) 44.50 cm/s MV Peak E Massiel (test code = 0313656405) 113.7 cm/s MV valve area p 1/2 method (test code = 7787787590) 3.40 cm2 MV dec slope (test code = 4722892067) 504.10 cm/s2 MV P1/2t max massiel (test code = 4578425561) 111.60 cm/s MV Peak A Massiel (test code = 8931991538) 56.6 cm/s E/A ratio (test code = 6083031682) 2.01 ratio LVOT stroke volume (test code = 6929536581) 66.30 cm3 LVOT peak massiel (test code = 1904019826) 126.8 cm/s LVOT mn grad (test code = 8201244087) 2.7 mmHg AV LVOT peak gradient (test code = 8943957110) 6.4 mmHg LVOT peak VTI (test code = 9911170440) 24.3 cm LV V1 mean (test code = 2741560511) 75.00 cm/s Aortic valve mean velocity (test code = 8155836198) 86.3 cm/s Ao peak massiel (test code = 8999301762) 134.7 cm/s Ao VTI (test code = 9889605117) 31.0 cm AV area by cont VTI (test code = 9566110118) 2.1 cm2 AV area peak massiel (test code = 4355305013) 2.6 cm2 Ao max PG (test code = 1266389288) 7.30 mm[Hg] AV peak gradient (test code = 0078670465) 7.3 mmHg AV valve area (test code = 0480781356) 2.14 cm2 AV mean gradient (test code = 5994756663) 3.4 mmHg TR Peak Massiel (test code = 0249881191) 155.6 cm/s Triscuspid Valve Regurgitation Peak Gradient (test code = 8634632896) 9.7 mmHg LAV(MOD-sp4) (test code = 4901043592) 20.60 mL LA Volume Index (BP) (test code = 3872397544) 13.3 mL/m2 LA volume (BP) (test code = 6280499220) 25.2 mL LAV(MOD-sp2) (test code = 1808253840) 28.60 mL A4C EF (test code = 7953505965) 56.30 % EF(sp4-el) (test code = 5628520846) 58.60 % SV(MOD-sp4) (test code = 4569084731) 35.30 mL SV(sp4-el) (test code = 5771010300) 39.40 mL RVOT area (test code = 7704658508) 3.08 cm2 Radiology Study observation (narrative) (test code = 62631-9) RANDI (test code = RANDI) ?Left?Ventricle: Left ventricle size is normal. Normal wall thickness. Normal wall motion. Normal systolic function with a visually estimated EF of 55 - 60%. Normal diastolic function. ?Right?Ventricle: Right ventricle size is normal. Normal systolic function. ?Tricuspid?Valve: Insufficient tricuspid regurgitation jet to estimate RVSP . ?RA pressure is 0-5 mmHg. ?Pericardium: No pericardial effusion. Left VentricleLeft ventricle size is normal. Normal wall thickness. Normal wall motion. Normal systolic function with a visually estimated EF of 55 - 60%. Normal diastolic function.Right VentricleRight ventricle size is normal. Normal systolic function.Left AtriumLeft atrium size is normal.Right AtriumRight atrium size is normal.IVC/SVCIVC diameter is less than or equal to 21 mm and decreases greater than 50% during inspiration; therefore the estimated right atrial pressure is normal (~0-5 mmHg).Mitral ValveMitral valve structure is normal. Trace transvalvular regurgitation.Tricusp id ValveTricuspid valve structure is normal. Trace transvalvular regurgitation. Insufficient tricuspid regurgitation jet to estimate RVSP . RA pressure is 0-5 mmHg.Aortic ValveTricuspid.Pulmon ic ValveValve structure is normal.Ascending AortaNormal sized aorta.PericardiumThe pericardium is normal. No pericardial effusion.Study DetailsStudy quality was adequate. A complete echocardiogram was performed using 2D, color flow Doppler and spectral Doppler. [facility] [id number] 05:30:15PROCEDURE: CT CHEST WITH CONTRAST- CHEST PE PROTOCOL CLINICAL INDICATION: Pulmonary embolism (PE) suspected, positive D-dimer ? Comparison: ?CXR 05/25/2022 TECHNIQUE: Volumetric helical CT angiogram was performed of the chest (lungapices to bases) with IV contrast. Images were reconstructed at 1.25 mmslice thickness. Corresponding axial, sagittal and coronal MIP images wereperformed. Axial MIPs and coronal and sagittal MPR images were generatedand reviewed.. FINDINGS: HEART AND GREAT VESSELS: The opacification of the pulmonary vasculature isappropriate. No filling defects are seen through the level of the segmentalpulmonary arteries.The pulmonary trunk is normal in caliber. The thoracic aorta is normal in caliber. The heart is normal in size. No pericardial abnormalities are identified.TheRV to LV is normal. MEDIASTINUM AND LOWER NECK: No central airway lesions are detected. Theesophagus is within normal limits. The included thyroid gland appearsnormal. LYMPH NODES: Scattered small lymph nodes in both sides of the mediastinumand hilar regions. No evidence of intrathoracic lymphadenopathy. LUNGS AND PLEURA: The lungs are well-expanded and clear. No focal opacitiesare identified. Calcified granulomas. No suspicious nodules. No pleuralabnormality detected. VISUALIZED UPPER ABDOMEN:The included solid organs and hollow viscusappear within normal limits. OSSEOUS STRUCTURES AND SOFTTISSUES: No focal osseous lesions are detected.The soft tissues appear normal.[facility] [id number] 02:28:00 * Test Item Value Reference Range Interpretation Comme nts POCT PREG (test code = 1605) Negative On board controls acceptable with C Line (test code = 3574) Yes POCT PREG LOT # (test code = 3575) 074934 POCT PREG TEST DATE ( test code = 3576) 04/03/2025 Lab Interpretation (test cod e = 49832-4) Normal [facility] MOLECULAR [id number] 16:08:01* Test Item Value Reference Range Interpretation Comme nts POCT Molecular FluA (test co de = 84450-6) Negative Negative POCT Molecular FluB (test co de = 75912-0) Negative Negative Lab Interpretation (test cod e = 61588-9) Normal [facility] MOLECULAR [id number] 16:08:01* Test Item Value Reference Range Interpretation Comme nts POCT Molecular FluA (test co de = 49351-3) Negative Negative POCT Molecular FluB (test co de = 04902-1) Negative Negative Lab Interpretation (test cod e = 58218-5) Normal [facility] MOLECULAR [id number] 16:08:01* Test Item Value Reference Range Interpretation Comme nts POCT Molecular FluA (test co de = 77242-5) Negative Negative POCT Molecular FluB (test co de = 92702-3) Negative Negative Lab Interpretation (test cod e = 57283-4) Normal [facility] MOLECULAR [id number] 16:08:01* Test Item Value Reference Range Interpretation Comme nts POCT Molecular FluA (test co de = 22127-0) Negative Negative POCT Molecular FluB (test co de = 37899-9) Negative Negative Lab Interpretation (test cod e = 41549-9) Normal [facility] MOLECULAR [id number] 15:57:54* Test Item Value Reference Range Interpretation Comme nts POCT Molecular Strep (test c ode = 78674-7) Positive Negative A Lab Interpretation (test cod e = 24975-6) Abnormal [facility] MOLECULAR [id number] 15:57:54* Test Item Value Reference Range Interpretation Comme nts POCT Molecular Strep (test c ode = 20884-5) Positive Negative A Lab Interpretation (test cod e = 68242-1) Abnormal [facility] MOLECULAR [id number] 15:57:54* Test Item Value Reference Range Interpretation Comme nts POCT Molecular Strep (test c ode = 03681-1) Positive Negative A Lab Interpretation (test cod e = 03337-8) Abnormal [facility] MOLECULAR [id number] 15:57:54* Test Item Value Reference Range Interpretation Comme nts POCT Molecular Strep (test c ode = 04814-0) Positive Negative A Lab Interpretation (test cod e = 59872-9) Abnormal [facility] [id number] 20:34:59 * Test Item Value Reference Range Interpretation Comme nts TSH (test code = 4497848030) 0.04 See_Comment L [Automated messa ge] The system which generated this result transmitted reference range: 0.45 - 4.70 mIU/L. The reference range was not used to interpret this result as normal/abnormal. Lab Interpretation (test code = 37334-8) Abnormal [facility] Houston[facility] [id number] 20:20:34* Test Item Value Reference Range Interpretation Comme nts FREE T4 (test code = 0910679470) 1.80 See_Comment [Automated messa ge] The system which generated this result transmitted reference range: 0.78 - 2.20 ng/dL:. The reference range was not used to interpret this result as normal/abnormal. Lab Interpretation (test code = 75157-7) Normal [facility], THIRD [id number] 02:18:45* Test Item Value Reference Range Interpretation Comme nts TSH, THIRD GENERATION (test code = 2821) 0.591 UIU/ML 0.400-4.100 [facility] has impo rtant pathology staff changes effective 01/29/2023. New pathology staff will provide uninterrupted, excellent patient care and clinical consultation. See URL: [email or web address]. UNLESS OTHERWISE INDICATED, ALL TESTING PERFORMED AT [facility] [address] [place] [address] DELIVERER FOOD: LAVONNE HENRY M.D. CLIA NUMBER [id number] [facility] [place]. [id number] TSH, THIRD [id number] 00:00:00* Test Item Value Reference Range Interpretation Comme nts TSH, THIRD GENERATION (test code = 2821) 0.591 UIU/ML Dinesh ChenHEMOGLOBIN [id number] 04:24:11* Test Item Value Reference Range Interpretation Comme nts HEMOGLOBIN A1c (test code = 50542) 5.2 % 4.2-5.6 HEMOGLOBIN [id number] 00:00:00* Test Item Value Reference Range Interpretation Comme nts HEMOGLOBIN A1c (test code = 82078) 5.2 % Dinesh ChenPOCT URINALYSIS W SPECIFIC [id number] 00:08:00* Test Item Value Reference Range Interpretation Comme nts POCT U SP GRAV (test code = 3255) 1.020 mg/dl 1.005-1.025 POCT PH U (test code = 3254) 5 mg/dl 5-8 POCT U LEUK EST (test code = 3263) negative Negative - Negative POCT U NIT (test code = 3262) negative Negative - Negati ve POCT U PROT (test code = 3259) Negative Negative - Negative POCT U GLU (test code = 3256) negative Negative - Negati ve POCT U KETONE (test code = 3258) negative Negative - Negative POCT U UROBILI (test code = 3260) negative 0.2-1 POCT U BILI (test code = 3261) negative Negative - Negative POCT U BLD (test code = 3257) negative Negative - Negati ve POCT U COLOR (test code = 3266) yellow POCT U APPEAR (test code = 3267) clear Lab Interpretation (test cod e = 81567-2) Normal [facility]2 4TH GEN, RFLX [id number] 04:17:36 * Test Item Value Reference Range Interpretation Comme nts HIV 1/2 4TH GEN, RFLX CONF ( test code = 3514) NON-REACTIVE NON-REACTIVE [id number] 03:39:54* Test Item Value Reference Range Interpretation Comme nts RPR RESULT (test code = 3501) NON-REACTIVE NON-REACTIVE RPR TITER (test code = 3500) NOT INDIC. TITER NOT INDIC. [facility] has importan t pathology staff changes effective 01/29/2023. New pathology staff will provide uninterrupted, excellent patient care and clinical consultation. See URL: [email or web address]. UNLESS OTHERWISE INDICATED, ALL TESTING PERFORMED AT [facility] [address] [place] [address] DELIVERER FOOD: FIOR STOCK M.D. CLIA NUMBER [id number] [facility] [place]. [id number] HIV AB/AG COMBO RFLX [id number] 00:00:00* Test Item Value Reference Range Interpretation Comme nts HIV 1/2 4TH GEN, RFLX CONF ( test code = 3514) NON-REACTIVE Dinesh [id number] 00:00:00* Test Item Value Reference Range Interpretation Comme nts RPR RESULT (test code = 3501) NON-REACTIVE RPR TITER (test code = 3500) NOT INDIC. TITER Dinesh ChenCHLAMYDIA, NAAT, [id number] 20:58:03* Test Item Value Reference Range Interpretation Comme nts CHLAMYDIA, NAAT, URINE (test code = 64634) NEGATIVE NEGATIVE Testing is perfo rmed with Ronel KAROLINE 6800/8800 systems usingreal-time polymerase chain reaction (PCR) method. A negative result does not exclude low level infection, specimensampling error, or collection error. GONORRHEA, NAAT, [id number] 20:58:03* Test Item Value Reference Range Interpretation Comme nts GONORRHEA, NAAT, URINE (test code = 82838) NEGATIVE NEGATIVE Testing is perfo rmed with Ronel KAROLINE 6800/8800 systems usingreal-time polymerase chain reaction (PCR) method. A negative result does not exclude low level infection, specimensampling error, or collection error. CULTURE, [id number] 08:59:23SPECIMEN NUMBER: [id number] CULTURE, URINE SPECIMEN NUMBER: [id number] SOURCE: URINE REPORT STATUS: FINAL FINAL REPORT: 02/03/2023 10-50,000 CFU/ML MIXED MICROBIAL POPULATION PRESENT, NO PREDOMINATING ORGANISMS;PROBABLE CONTAMINANTS.GC, AMPLIFIED, [id number] 00:00:00* Test Item Value Reference Range Interpretation Comme nts GONORRHEA, NAAT, URINE (test code = 99791) NEGATIVE Dinesh ChenCULTURE, [id number] 00:00:00* Test Item Value Reference Range Interpretation Comme nts CULTURE, URINE (test code = 98165) SPECIMEN NUMBER: [id number] Dinesh ChenCHLAMYDIA, AMPLIFIED, [id number] 00:00:00* Test Item Value Reference Range Interpretation Comme nts CHLAMYDIA, NAAT, URINE (test code = 78087) NEGATIVE Dinesh ChenPOCT MOLECULAR [id number] 22:29:53* Test Item Value Reference Range Interpretation Comme nts POCT Molecular FluA (test co de = 72524-4) Positive Negative A Lab Interpretation (test cod e = 14810-1) [facility]normal [facility] [id number] 22:25:50* Test Item Value Reference Range Interpretation Comme nts POCT Molecular Strep (test c ode = 85281-9) Positive Negative A Lab Interpretation (test cod e = 17989-5) Abnormal [facility], THIRD [id number] 04:18:40* Test Item Value Reference Range Interpretation Comme nts TSH, THIRD GENERATION (test code = 2821) 2.920 UIU/ML 0.400-4.100 UNLESS OTHERWISE INDICATED, ALL TESTING PERFORMED [facility] [address] [place] [address] DELIVERER FOOD: FIOR STOCK M.D. CLIA NUMBER [id number] [facility] [place] [place]. [id number] TSH, THIRD [id number] 00:00:00* Test Item Value Reference Range Interpretation Comme nts TSH, THIRD GENERATION (test code = 2821) 2.920 UIU/ML Dinesh MeridaH, THIRD [id number] 02:32:58* Test Item Value Reference Range Interpretation Comme nts TSH, THIRD GENERATION (test code = 2821) 0.474 UIU/ML 0.400-4.100 TSH, THIRD [id number] 00:00:00* Test Item Value Reference Range Interpretation Comme nts TSH, THIRD GENERATION (test code = 2821) 0.474 UIU/ML TSH, THIRD [id number] 00:00:00* Test Item Value Reference Range Interpretation Comme nts TSH, THIRD GENERATION (test code = 2821) 0.474 UIU/ML [facility]AUT[facility] DIFF WITH [id number] 03:07:57* Test Item Value Reference Range Interpretation Comme nts WBC (test code = 1001) 6.7 K/UL 3.5-11.0 RBC (test code = 1002) 4.81 M/UL 3.80-5.40 HEMOGLOBIN (test code = 1003) 12.7 G/DL 11.5-15.5 HEMATOCRIT (test code = 1004) 38.7 % 34.0-45.0 MCV (test code = 1005) 80.5 fL 80.0-99.0 MCH (test code = 1006) 26.4 PG 25.0-33.0 MCHC (test code = 1007) 32.8 G/DL 31.0-36.0 RDW (test code = 1038) 14.5 % 11.5-15.0 NEUTROPHILS (test code = 1008) 56.3 % LYMPHOCYTES (test code = 1010) 33.8 % MONOCYTES (test code = 1011) 7.8 % EOSINOPHILS (test code = 1012) 1.9 % BASOPHILS (test code = 1013) 0.1 % IMMATURE GRANULOCYTES (test code = 1036) 0.1 % NUCLEATED RBCS (test code = 1065) 0.0 /100 WBC'S See_Comment [Automated message] The system which generated this result transmitted reference range: 0.0. The reference range was not used to interpret this result as normal/abnormal. PLATELET COUNT (test code = 1015) 295 K/UL 130-400 ABSOLUTE NEUTROPHILS (test code = 1066) 3.75 K/UL 1.50-7.50 ABSOLUTE LYMPHOCYTES (test code = 1067) 2.26 K/UL 1.00-4.00 ABSOLUTE MONOCYTES (test code = 1068) 0.52 K/UL 0.20-1.00 ABSOLUTE EOSINOPHILS (test code = 1040) 0.13 K/UL 0.00-0.50 ABSOLUTE BASOPHILS (test code = 1069) 0.01 K/UL 0.00-0.20 ABS IMMATURE GRANULOCYTES (test code = 1020) 0.01 K/UL 0.00-0.10 ABS NUCLEATED RBCS (test code = 68355) 0.00 K/UL 0.00-0.11 UNLESS OTHER LUNDY INDICATED, ALL TESTING PERFORMED [facility] [address] [place] [address] DELIVERER FOOD: FIOR STOCK M.D. IA NUMBER [id number] [facility] [place]. [id number] CBC W/AUTO [id number] 00:00:00* Test Item Value Reference Range Interpretation Comme nts WBC (test code = 1001) 6.7 K/UL [...] = 1013) 0.1 % IMMATURE GRANULOCYTES (test code = 1036) 0.1 % NUCLEATED RBCS (test code = 1065) 0.0 /100WBC'S PLATELET COUNT (test code = 1015) 295 K/UL ABSOLUTE NEUTROPHILS (test c ode = 1066) 3.75 K/UL ABSOLUTE LYMPHOCYTES (test c ode = 1067) 2.26 K/UL ABSOLUTE MONOCYTES (test cod e = 1068) 0.52 K/UL ABSOLUTE EOSINOPHILS (test c ode = 1040) 0.13 K/UL ABSOLUTE BASOPHILS (test cod e = 1069) 0.01 K/UL ABS IMMATURE GRANULOCYTES (t est code = 1020) 0.01 K/UL ABS NUCLEATED RBCS (test cod e = 55250) 0.00 K/UL CBC W/AUTO [id number] 00:00:00* Test Item Value Reference Range Interpretation Comme nts WBC (test code = 1001) 6.7 K/UL [...] = 1013) 0.1 % IMMATURE GRANULOCYTES (test code = 1036) 0.1 % NUCLEATED RBCS (test code = 1065) 0.0 /100WBC'S PLATELET COUNT (test code = 1015) 295 K/UL ABSOLUTE NEUTROPHILS (test c ode = 1066) 3.75 K/UL ABSOLUTE LYMPHOCYTES (test c ode = 1067) 2.26 K/UL ABSOLUTE MONOCYTES (test cod e = 1068) 0.52 K/UL ABSOLUTE EOSINOPHILS (test c ode = 1040) 0.13 K/UL ABSOLUTE BASOPHILS (test cod e = 1069) 0.01 K/UL ABS IMMATURE GRANULOCYTES (t est code = 1020) 0.01 K/UL ABS NUCLEATED RBCS (test cod e = 80352) 0.00 K/UL Dinesh F AustinVAGINAL PATHOGENS DNA [id number] 14:38:56* Test Item Value Reference Range Interpretation Comme nts YIMI SPECIES (test code = 95099) NEGATIVE NEGATIVE G. VAGINALIS (test code = 46864) POSITIVE NEGATIVE A T. VAGINALIS (test code = 11521) NEGATIVE NEGATIVE HIV 1/2 4TH GEN, RFLX [id number] 03:14:46* Test Item Value Reference Range Interpretation Comme nts HIV 1/2 4TH GEN, RFLX CONF ( test code = 3514) NON-REACTIVE NON-REACTIVE HIV 1/2 4TH GEN, RFLX [id number] 00:00:00* Test Item Value Reference Range Interpretation Comme nts HIV 1/2 4TH GEN, RFLX CONF ( test code = 3514) NON-REACTIVE Dinesh F AustinVAGINAL PATHOGENS DNA [id number] 00:00:00* Test Item Value Reference Range Interpretation Comme nts YIMI SPECIES (test code = ) NEGATIVE G. VAGINALIS (test code = 49767) POSITIVE T. VAGINALIS (test code = 39836) NEGATIVE HIV 1/2 4TH GEN, RFLX [id number] 00:00:00* Test Item Value Reference Range Interpretation Comme nts HIV 1/2 4TH GEN, RFLX CONF ( test code = 3514) NON-REACTIVE VAGINAL PATHOGENS DNA [id number] 00:00:00* Test Item Value Reference Range Interpretation Comme nts YIMI SPECIES (test code = 91864) NEGATIVE G. VAGINALIS (test code = 23974) POSITIVE T. VAGINALIS (test code = 73982) NEGATIVE HIV 1/2 4TH GEN, RFLX [id number] 00:00:00* Test Item Value Reference Range Interpretation Comme nts HIV 1/2 4TH GEN, RFLX CONF ( test code = 3514) NON-REACTIVE VAGINAL PATHOGENS DNA [id number] 00:00:00* Test Item Value Reference Range Interpretation Comme nts YIMI SPECIES (test code = ) NEGATIVE G. VAGINALIS (test code = 77793) POSITIVE T. VAGINALIS (test code = 83836) NEGATIVE Dinesh [id number] 23:42:09* Test Item Value Reference Range Interpretation Comme nts RPR RESULT (test code = 3501) NON-REACTIVE NON-REACTIVE RPR TITER (test code = 3500) NOT INDIC. TITER NOT INDIC. UNLESS OTHERWISE INDICATED, ALL TESTING PERFORMED [facility] [address] [place] [address] DELIVERER FOOD: FIOR STCOK M.D. CLIA NUMBER [id number] [place]. [id number] CT/NG, NAAT, [id number] 16:24:59* Test Item Value Reference Range Interpretation Comme nts GONORRHEA, NAAT (test code = 88272) NEGATIVE NEGATIVE IMPORTANT NO LILLY: SEE ANNOUNCEMENT AT [email or web address] Note: Assay methodology is nucleic acid amplification by fund raiser mediated amplification (TMA) utilizing the Aptima Combo 2 Assay. CHLAMYDIA, NAAT (test code = 39629) NEGATIVE NEGATIVE IMPORTANT NO LILLY: SEE ANNOUNCEMENT AT [email or web address] Note: Assay methodology is nucleic acid amplification by fund raiser mediated amplification (TMA) utilizing the Apt[employer] Combo [address]/NG, TMA, [id number] 00:00:00* Test Item Value Reference Range Interpretation Comme nts GONORRHEA, NAAT (test code = 33574) NEGATIVE CHLAMYDIA, NAAT (test code = 88474) NEGATIVE [id number] 00:00:00* Test Item Value Reference Range Interpretation Comme nts RPR RESULT (test code = 3501) NON-REACTIVE RPR TITER (test code = 3500) NOT INDIC. TITER [id number] 00:00:00* Test Item Value Reference Range Interpretation Comme nts RPR RESULT (test code = 3501) NON-REACTIVE RPR TITER (test code = 3500) NOT INDIC. TITER Dinesh ChenCT/NG, TMA, [id number] 00:00:00* Test Item Value Reference Range Interpretation Comme nts GONORRHEA, NAAT (test code = 85335) NEGATIVE CHLAMYDIA, NAAT (test code = 13203) NEGATIVE [id number] 00:00:00* Test Item Value Reference Range Interpretation Comme nts RPR RESULT (test code = 3501) NON-REACTIVE RPR TITER (test code = 3500) NOT INDIC. TITER CT/NG, TMA, [id number] 00:00:00* Test Item Value Reference Range Interpretation Comme nts GONORRHEA, NAAT (test code = 72139) NEGATIVE CHLAMYDIA, NAAT (test code = 40636) NEGATIVE Dinesh ChenCULTURE, [id number] 11:23:55SPECIMEN NUMBER: [id number] CULTURE, URINE SPECIMEN NUMBER: [id number] SPECIMEN COMMENT: URINE SOURCE: URINE REPORT STATUS: FINAL ISOLATE NUMBER 1: ORGANISM: 07/08/2022 10-50,000 CFU/ML GRAM NEGATIVE BACILLI IDENTIFICATION: 07/09/2022 ESCHERICHIA COLI E. COLI AMOXICILLIN/CA SENSITIVE<=8/4AMPICILLIN RESISTANT >16CEFAZOLIN SENSITIVE <=2CEFTRIAXONE SENSITIVE <=1CIPROFLOXACIN SENSITIVE <=1LEVOFLOXACIN SENSITIVE <=2NITROFURANTOIN SENSITIVE <=32PIP/TAZOBAC SENSITIVE <=16TETRACYCLINE RESISTANT >8TOBRAMYCIN SENSITIVE <=4TRIMETH/SULFA SENSITIVE <=2/38 NOTE: NUMBERS DISPLAYED REPRESENT MINIMUM INHIBITORY CONCENTRATION (ZIA) WHICH IS EXPRESSED IN MCG/ML.CULTURE, [id number] 00:00:00* Test Item Value Reference Range Interpretation Comme nts CULTURE, URINE (test code = 09211) SPECIMEN NUMBER: [id number] Dinesh GuzmanURE, [id number] 00:00:00* Test Item Value Reference Range Interpretation Comme nts CULTURE, URINE (test code = 48065) SPECIMEN NUMBER: [id number] CULTURE, [id number] 00:00:00* Test Item Value Reference Range Interpretation Comme nts CULTURE, URINE (test code = 94102) SPECIMEN NUMBER: [id number] TSH, THIRD [id number] 02:03:48* Test Item Value Reference Range Interpretation Comme nts TSH, THIRD GENERATION (test code = 2821) 0.026 UIU/ML 0.400-4.100 L UNLESS OTHERWISE INDICATED, ALL TESTING PERFORMED [facility] [address] [place] [address] DELIVERER FOOD: FIOR STOCK M.D. CLIA NUMBER [id number] [facility] [place]. [id number] 00:00:00* Test Item Value Reference Range Interpretation Comme nts TSH, THIRD GENERATION (test code = 2821) 0.026 UIU/ML [id number] 00:00:00* Test Item Value Reference Range Interpretation Comme nts TSH, THIRD GENERATION (test code = 2821) 0.026 UIU/ML [id number] 00:00:00* Test Item Value Reference Range Interpretation Comme nts TSH, THIRD GENERATION (test code = 2821) 0.026 UIU/ML Dinesh Prince, [id number] 12:07:41SPECIMEN NUMBER: [id number] CULTURE, URINE SPECIMEN NUMBER: [id number] SOURCE: URINE REPORT STATUS: FINAL FINAL REPORT: 06/11/2022 UNABLE TO PERFORM TESTING DUE TO RECEIPT OF IMPROPER SPECIMEN. CHARGES DELETED.CULTURE, [id number] 00:00:00* Test Item Value Reference Range Interpretation Comme nts CULTURE, URINE (test code = 28800) SPECIMEN NUMBER: [id number] CULTURE, [id number] 00:00:00* Test Item Value Reference Range Interpretation Comme nts CULTURE, URINE (test code = 72652) SPECIMEN NUMBER: [id number] CULTURE, [id number] 00:00:00* Test Item Value Reference Range Interpretation Comme nts CULTURE, URINE (test code = 94329) SPECIMEN NUMBER: [id number] Dinesh ChenVAGINAL PATHOGENS DNA [id number] 13:20:58* Test Item Value Reference Range Interpretation Comme nts YIMI SPECIES (test code = ) NEGATIVE NEGATIVE G. VAGINALIS (test code = 65909) POSITIVE NEGATIVE A T. VAGINALIS (test code = 97118) NEGATIVE NEGATIVE UNLESS OTHERWISE INDICATED, ALL TESTING PERFORMED [email or web address] [address] [place] [address] DELIVERER FOOD: FIOR STOCK M.D. CLIA NUMBER [id number] [facility] [place]. [id number] VAGINAL PATHOGENS DNA [id number] 00:00:00* Test Item Value Reference Range Interpretation Comme nts YIMI SPECIES (test code = 84198) NEGATIVE G. VAGINALIS (test code = 70419) POSITIVE T. VAGINALIS (test code = 22413) NEGATIVE VAGINAL PATHOGENS DNA [id number] 00:00:00* Test Item Value Reference Range Interpretation Comme nts YIMI SPECIES (test code = 05200) NEGATIVE G. VAGINALIS (test code = 45469) POSITIVE T. VAGINALIS (test code = 47591) NEGATIVE VAGINAL PATHOGENS DNA [id number] 00:00:00* Test Item Value Reference Range Interpretation Comme nts YIMI SPECIES (test code = 67867) NEGATIVE G. VAGINALIS (test code = 47161) POSITIVE T. VAGINALIS (test code = 32319) NEGATIVE Dinesh ChenTS, THIRD [id number] 04:11:12* Test Item Value Reference Range Interpretation Comme nts TSH, THIRD GENERATION (test code = 2821) <0.010 UIU/ML 0.400-4.100 L UNLESS OTHERWISE INDICATED, ALL TESTING PERFORMED [email or web address] [employer] [address] [place] [address] DELIVERER FOOD: FIOR STOCK M.D. CLIA NUMBER [id number] [facility] [place]. [id number] LIPID [id number] 03:05:33* Test Item Value Reference Range Interpretation Comme nts CHOLESTEROL (test code = 2210) 149 MG/DL <200 TRIGLYCERIDES (test code = 2232) 133 MG/DL <150 HDL CHOLESTEROL (test code = 2220) 44 MG/DL >39 CALC LDL CHOL (test code = 2237) 82 MG/DL <100 NOTE: CALCULATED LDL IS BASED ON KATHY-JUÁREZ METHOD WHICHINCLUDES ADJUSTABLE TRIGLYCERIDE:VLDL CHOLESTEROL RATIO.THIS FACTOR VARIES BY MEASURED TRIGLYCERIDE AND NON-HDLCHOLESTEROL CONCENTRATIONS WITH INCREASED CALCULATED LDL SEENIN HIGHER TRIGLYCERIDE OR LOWER NON-HDL SPECIMENS. FOR MOREINFORMATION, SEE CLIENT ANNOUNCEMENT AT [email or web address] RATIO LDL/HDL (test code = 2238) 1.86 RATIO <3.22 COMPREHENSIVE METABOLIC [id number] 03:05:33* Test Item Value Reference Range Interpretation Comme nts GLUCOSE (test code = 2217) 90 MG/DL 70-99 BUN (test code = 2208) 14 MG/DL 6-20 CREATININE (test code = 2214) 0.55 MG/DL 0.60-1.30 L eGFR (2020 CKD-EPI) (test code = 52757) 131 ML/MIN/1.73 >60 CALC BUN/CREAT (test code = 2235) 25 RATIO 6-28 SODIUM (test code = 223) 141 MEQ/L 133-146 POTASSIUM (test code = 2228) 4.0 MEQ/L 3.5-5.4 CHLORIDE (test code = 2215) 107 MEQ/L 95-107 CARBON DIOXIDE (test code = 2206) 22 MEQ/L 19-31 CALCIUM (test code = 2209) 9.8 MG/DL 8.5-10.5 PROTEIN, TOTAL (test code = 222) 7.6 G/DL 6.1-8.3 ALBUMIN (test code = 220) 4.4 G/DL 3.5-5.2 CALC GLOBULIN (test code = 2240) 3.2 G/DL 1.9-3.7 CALC A/G RATIO (test code = 2234) 1.4 RATIO 1.0-2.6 BILIRUBIN, TOTAL (test code = 2207) 0.6 MG/DL See_Comment [Automated me ssage] The system which generated this result transmitted reference range: <=1.2. The reference range was not used to interpret this result as normal/abnormal. ALKALINE PHOSPHATASE (test code = 2204) 92 U/L 40-115 AST (test code = 2218) 20 U/L 9-40 ALT (test code = 2219) 27 U/L 5-40 [id number] 00:00:00* Test Item Value Reference Range Interpretation Comme nts TSH, THIRD GENERATION (test code = 2821) <0.010 UIU/ML Dinesh Vinson AustinLIPID [id number] 00:00:00* Test Item Value Reference Range Interpretation Comme nts CHOLESTEROL (test code = 2210) 149 MG/DL TRIGLYCERIDES (test code = 2232) 133 MG/DL HDL CHOLESTEROL (test code = 2220) 44 MG/DL CALC LDL CHOL (test code = 2237) 82 MG/DL RISK RATIO LDL/HDL (test cod e = 2238) 1.86 RATIO COMPREHENSIVE METABOLIC [id number] 00:00:00* Test Item Value Reference Range Interpretation Comme nts GLUCOSE (test code = 2217) 90 MG/DL BUN (test code = 2208) 14 MG/DL CREATININE (test code = 2214) 0.55 MG/DL eGFR (2020 CKD-EPI) (test code = 08777) 131 ML/MIN/1.73 CALC BUN/CREAT (test code = 2235) 25 RATIO SODIUM (test code = 2231) 141 MEQ/L POTASSIUM (test code = 2228) 4.0 MEQ/L CHLORIDE (test code = 2215) 107 MEQ/L CARBON DIOXIDE (test code = 2206) 22 MEQ/L CALCIUM (test code = 2209) 9.8 MG/DL PROTEIN, TOTAL (test code = 2229) 7.6 G/DL ALBUMIN (test code = 2201) 4.4 G/DL CALC GLOBULIN (test code = 2240) 3.2 G/DL CALC A/G RATIO (test code = 2234) 1.4 RATIO BILIRUBIN, TOTAL (test code = 2207) 0.6 MG/DL ALKALINE PHOSPHATASE (test code = 2204) 92 U/L AST (test code = 2218) 20 U/L ALT (test code = 2219) 27 U/L [id number] 00:00:00* Test Item Value Reference Range Interpretation Comme nts TSH, THIRD GENERATION (test code = 2821) <0.010 UIU/ML LIPID [id number] 00:00:00* Test Item Value Reference Range Interpretation Comme nts CHOLESTEROL (test code = 2210) 149 MG/DL TRIGLYCERIDES (test code = 2232) 133 MG/DL HDL CHOLESTEROL (test code = 2220) 44 MG/DL CALC LDL CHOL (test code = 2237) 82 MG/DL RISK RATIO LDL/HDL (test cod e = 2238) 1.86 RATIO COMPREHENSIVE METABOLIC [id number] 00:00:00* Test Item Value Reference Range Interpretation Comme nts GLUCOSE (test code = 2217) 90 MG/DL BUN (test code = 2208) 14 MG/DL CREATININE (test code = 2214) 0.55 MG/DL eGFR (2020 CKD-EPI) (test code = 14950) 131 ML/MIN/1.73 CALC BUN/CREAT (test code = 2235) 25 RATIO SODIUM (test code = 2231) 141 MEQ/L POTASSIUM (test code = 2228) 4.0 MEQ/L CHLORIDE (test code = 2215) 107 MEQ/L CARBON DIOXIDE (test code = 2206) 22 MEQ/L CALCIUM (test code = 2209) 9.8 MG/DL PROTEIN, TOTAL (test code = 2229) 7.6 G/DL ALBUMIN (test code = 2201) 4.4 G/DL CALC GLOBULIN (test code = 2240) 3.2 G/DL CALC A/G RATIO (test code = 2234) 1.4 RATIO BILIRUBIN, TOTAL (test code = 2207) 0.6 MG/DL ALKALINE PHOSPHATASE (test code = 2204) 92 U/L AST (test code = 2218) 20 U/L ALT (test code = 2219) 27 U/L [id number] 00:00:00* Test Item Value Reference Range Interpretation Comme nts TSH, THIRD GENERATION (test code = 2821) <0.010 UIU/ML LIPID [id number] 00:00:00* Test Item Value Reference Range Interpretation Comme nts CHOLESTEROL (test code = 2210) 149 MG/DL TRIGLYCERIDES (test code = 2232) 133 MG/DL HDL CHOLESTEROL (test code = 2220) 44 MG/DL CALC LDL CHOL (test code = 2237) 82 MG/DL RISK RATIO LDL/HDL (test cod e = 2238) 1.86 RATIO Dinesh ChenCOMPREHENSIVE METABOLIC [id number] 00:00:00* Test Item Value Reference Range Interpretation Comme nts GLUCOSE (test code = 2217) 90 MG/DL BUN (test code = 2208) 14 MG/DL CREATININE (test code = 2214) 0.55 MG/DL eGFR (2020 CKD-EPI) (test code = 63467) 131 ML/MIN/1.73 CALC BUN/CREAT (test code = 2235) 25 RATIO SODIUM (test code = 2231) 141 MEQ/L POTASSIUM (test code = 2228) 4.0 MEQ/L CHLORIDE (test code = 2215) 107 MEQ/L CARBON DIOXIDE (test code = 2206) 22 MEQ/L CALCIUM (test code = 2209) 9.8 MG/DL PROTEIN, TOTAL (test code = 2229) 7.6 G/DL ALBUMIN (test code = 2201) 4.4 G/DL CALC GLOBULIN (test code = 2240) 3.2 G/DL CALC A/G RATIO (test code = 2234) 1.4 RATIO BILIRUBIN, TOTAL (test code = 2207) 0.6 MG/DL ALKALINE PHOSPHATASE (test code = 2204) 92 U/L AST (test code = 2218) 20 U/L ALT (test code = 2219) 27 U/L Dinesh Vinson AustinVAGINAL PATHOGENS DNA [id number] 00:00:00* Test Item Value Reference Range Interpretation Comme nts YIMI SPECIES (test code = ) NEGATIVE G. VAGINALIS (test code = 56827) POSITIVE T. VAGINALIS (test code = 77518) NEGATIVE VAGINAL PATHOGENS DNA [id number] 00:00:00* Test Item Value Reference Range Interpretation Comme nts YIMI SPECIES (test code = 75252) NEGATIVE G. VAGINALIS (test code = 58110) POSITIVE T. VAGINALIS (test code = 20560) NEGATIVE VAGINAL PATHOGENS DNA [id number] 00:00:00* Test Item Value Reference Range Interpretation Comme nts YIMI SPECIES (test code = 24988) NEGATIVE G. VAGINALIS (test code = 10273) POSITIVE T. VAGINALIS (test code = 07704) NEGATIVE Dinesh Butterfield AND CHLAMYDIA, AMPLIFIED, [id number] 00:00:00* Test Item Value Reference Range Interpretation Comme nts GONORRHEA, NAAT (test code = 72725) NEGATIVE CHLAMYDIA, NAAT (test code = 94836) NEGATIVE GC AND CHLAMYDIA, AMPLIFIED, [id number] 00:00:00* Test Item Value Reference Range Interpretation Comme nts GONORRHEA, NAAT (test code = 16730) NEGATIVE CHLAMYDIA, NAAT (test code = 84951) NEGATIVE GC AND CHLAMYDIA, AMPLIFIED, [id number] 00:00:00* Test Item Value Reference Range Interpretation Comme nts GONORRHEA, NAAT (test code = 09272) NEGATIVE CHLAMYDIA, NAAT (test code = 34784) NEGATIVE Dinesh ChenHCG, [id number] 10:11:18* Test Item Value Reference Range Interpretation Comme nts HCG, QUANTITATIVE (test code = 2506) <5 MIU/ML SEE BELOW EXPEC [place] VALUES FOR HCG GST.AGE UNITS RANGE GST. AGE UNITS RANGE3 WEEKS MIU/ML 6-71 10 WEEKS MIU/ML 46,509-186,9774 WEEKS MIU/ML 10-750 12 WEEKS MIU/ML 27,832-210,6125 WEEKS MIU/ML 217-7,138 14 WEEKS MIU/ML 13,950-62,5306 WEEKS MIU/ML 158-31,795 15 WEEKS MIU/ML 12,039-70,9717 WEEKS MIU/ML 3,697-163,563 16 WEEKS MIU/ML 9,040-56,4518 WEEKS MIU/ML 32,065-149,571 17 WEEKS MIU/ML 8,175-55,8689 WEEKS MIU/ML 63,803-151,410 18 WEEKS MIU/ML 8,099-58,176MALES and NON- FEMALES . . . . . . . . MIU/ML 0-4VWHI-WEDFQSPGUX FEMALES . . . . . . . . . . . . MIU/ML <=7 UNLESS OTHERWISE INDICATED, ALL TESTING PERFORMED [facility] [address] [place] [address] DELIVERER FOOD: FIOR STOCK M.D. CLIA NUMBER [id number] [facility] [place]. [id number] HCG, [id number] 00:00:00* Test Item Value Reference Range Interpretation Comme nts HCG, QUANTITATIVE (test code = 2506) <5 MIU/ML HCG, [id number] 00:00:00* Test Item Value Reference Range Interpretation Comme nts HCG, QUANTITATIVE (test code = 2506) <5 MIU/ML HCG, [id number] 00:00:00* Test Item Value Reference Range Interpretation Comme nts HCG, QUANTITATIVE (test code = 2506) <5 MIU/ML Dinesh ChenURINE CULTURE, NO [id number] 00:00:00* Test Item Value Reference Range Interpretation Comme nts URINE CULTURE, NO SENS (test code = 79794) SPECIMEN NUMBER: [id number] URINE CULTURE, NO [id number] 00:00:00* Test Item Value Reference Range Interpretation Comme nts URINE CULTURE, NO SENS (test code = 15443) SPECIMEN NUMBER: [id number] URINE CULTURE, NO [id number] 00:00:00* Test Item Value Reference Range Interpretation Comme nts URINE CULTURE, NO SENS (test code = 59622) SPECIMEN NUMBER: [id number] Dinesh ChenGC AND CHLAMYDIA, AMPLIFIED, [id number] 00:00:00* Test Item Value Reference Range Interpretation Comme nts GONORRHEA, NAAT (test code = 61807) NEGATIVE CHLAMYDIA, NAAT (test code = 57987) NEGATIVE Dinesh [id number] 00:00:00* Test Item Value Reference Range Interpretation Comme nts RPR RESULT (test code = 3501) NON-REACTIVE RPR TITER (test code = 3500) NOT INDIC. TITER ACUTE HEPATITIS [id number] 00:00:00* Test Item Value Reference Range Interpretation Comme nts HEPATITIS A IgM (test code = 46686) NON-REACTIVE HEPATITIS B CORE IgM (test c ode = 4644) NON-REACTIVE HEPATITIS B SURF AG (test co de = 2739) NON-REACTIVE HEPATITIS C ANTIBODY (test c ode = 4675) NON-REACTIVE INTERPRETATION HEPATITIS A: (test code = 2552) (NOTE) INTERPRETATION HEPATITIS B: (test code = 64009) (NOTE) INTERPRETATION HEPATITIS C: (test code = 76432) (NOTE) GC AND CHLAMYDIA, AMPLIFIED, [id number] 00:00:00* Test Item Value Reference Range Interpretation Comme nts GONORRHEA, NAAT (test code = 06620) NEGATIVE CHLAMYDIA, NAAT (test code = 94087) NEGATIVE HIV AB/AG COMBO RFLX [id number] 00:00:00* Test Item Value Reference Range Interpretation Comme nts HIV 1/2 4TH GEN, RFLX CONF ( test code = 3514) NON-REACTIVE VAGINAL PATHOGENS DNA [id number] 00:00:00* Test Item Value Reference Range Interpretation Comme nts YIMI SPECIES (test code = 92531) POSITIVE G. VAGINALIS (test code = 15628) NEGATIVE T. VAGINALIS (test code = 50059) NEGATIVE HCG, [id number] 00:00:00* Test Item Value Reference Range Interpretation Comme nts HCG, QUANTITATIVE (test code = 2506) <5 MIU/ML [id number] 00:00:00* Test Item Value Reference Range Interpretation Comme nts RPR RESULT (test code = 3501) NON-REACTIVE RPR TITER (test code = 3500) NOT INDIC. TITER ACUTE HEPATITIS [id number] 00:00:00* Test Item Value Reference Range Interpretation Comme nts HEPATITIS A IgM (test code = 66227) NON-REACTIVE HEPATITIS B CORE IgM (test c ode = 4644) NON-REACTIVE HEPATITIS B SURF AG (test co de = 2739) NON-REACTIVE HEPATITIS C ANTIBODY (test c ode = 4675) NON-REACTIVE INTERPRETATION HEPATITIS A: (test code = 2552) (NOTE) INTERPRETATION HEPATITIS B: (test code = 49928) (NOTE) INTERPRETATION HEPATITIS C: (test code = 58114) (NOTE) HIV AB/AG COMBO RFLX [id number] 00:00:00* Test Item Value Reference Range Interpretation Comme nts HIV 1/2 4TH GEN, RFLX CONF ( test code = 3514) NON-REACTIVE Dinesh ChenGC AND CHLAMYDIA, AMPLIFIED, [id number] 00:00:00* Test Item Value Reference Range Interpretation Comme nts GONORRHEA, NAAT (test code = 63570) NEGATIVE CHLAMYDIA, NAAT (test code = 38857) NEGATIVE HIV AB/AG COMBO RFLX [id number] 00:00:00* Test Item Value Reference Range Interpretation Comme nts HIV 1/2 4TH GEN, RFLX CONF ( test code = 3514) NON-REACTIVE VAGINAL PATHOGENS DNA [id number] 00:00:00* Test Item Value Reference Range Interpretation Comme nts YIMI SPECIES (test code = 35907) POSITIVE G. VAGINALIS (test code = 46088) NEGATIVE T. VAGINALIS (test code = 33881) NEGATIVE HCG, [id number] 00:00:00* Test Item Value Reference Range Interpretation Comme nts HCG, QUANTITATIVE (test code = 2506) <5 MIU/ML VAGINAL PATHOGENS DNA [id number] 00:00:00* Test Item Value Reference Range Interpretation Comme nts YIMI SPECIES (test code = 05127) POSITIVE G. VAGINALIS (test code = 02765) NEGATIVE T. VAGINALIS (test code = 92155) NEGATIVE Dinesh ChenHCG, [id number] 00:00:00* Test Item Value Reference Range Interpretation Comme nts HCG, QUANTITATIVE (test code = 2506) <5 MIU/ML Dinesh [id number] 00:00:00* Test Item Value Reference Range Interpretation Comme nts RPR RESULT (test code = 3501) NON-REACTIVE RPR TITER (test code = 3500) NOT INDIC. TITER Dinesh ChenACUTE HEPATITIS [id number] 00:00:00* Test Item Value Reference Range Interpretation Comme nts HEPATITIS A IgM (test code = 58855) NON-REACTIVE HEPATITIS B CORE IgM (test c ode = 1344) NON-REACTIVE HEPATITIS B SURF AG (test co de = 3729) NON-REACTIVE HEPATITIS C ANTIBODY (test c ode = 6888) NON-REACTIVE INTERPRETATION HEPATITIS A: (test code = 2552) (NOTE) INTERPRETATION HEPATITIS B: (test code = 78421) (NOTE) INTERPRETATION HEPATITIS C: (test code = 64748) (NOTE) Dinesh ChenURINE AND [id number] 04:11:00* Test Item Value Reference Range Interpretation Comme nts UA Color (test code = UA Color) Light Yellow *NA*(08/08/20 11:11 PM) UA Turbidity (test code = UA Turbidity) Clear (08/08/20 11:11 PM) UA Spec Grav (test code = UA Spec Grav) 1.011 1 UA pH (test code = UA pH) 6.0 1 5.0-8.0 UA Protein (test code = UA Protein) Negative (08/08/20 11:11 PM) UA Glucose (test code = UA Glucose) Negative *NA*(08/08/20 11:11 PM) UA Ketones (test code = UA Ketones) Negative *NA*(08/08/20 11:11 PM) UA Bili (test code = UA Bili) Negative *NA*(08/08/20 11:11 PM) UA Blood (test code = UA Blood) Negative (08/08/20 11:11 PM) UA Urobilinogen (test code = UA Urobilinogen) <=1.0 mg/dL 0.1-1.0 UA Nitrite (test code = UA Nitrite) Negative (08/08/20 11:11 PM) UA Leuk Est (test code = UA Leuk Est) Negative (08/08/20 11:11 PM) UA Sq Epi (test code = UA Sq Epi) Occasional /LPF UA WBC (test code = UA WBC) no gt <=5 UA RBC (test code = UA RBC) 2 <=2 UA Bacteria (test code = UA Bacteria) Occasional /HPF UA Mucus (test code = UA Mucus) Few /LPF [facility] [id number] 03:26:00* Test Item Value Reference Range Interpretation Comme nts Total CK (test code = Total CK) 47 12-191 Troponin-I (test code = Troponin-I) no gt <=0.40 [facility]CHEM [id number] 03:26:00* Test Item Value Reference Range Interpretation Comme nts Glucose Lvl (test code = Glucose Lvl) 118 70-99 BUN (test code = BUN) 9 7-22 Creatinine Lvl (test code = Creatinine Lvl) 0.60 0.50-1.40 Sodium Lvl (test code = Sodium Lvl) 136 135-145 Potassium Lvl (test code = P otassium Lvl) 3.7 3.5-5.1 Chloride Lvl (test code = Chloride Lvl) 106 95-109 CO2 (test code = CO2) 24 24-32 Calcium Lvl (test code = Calcium Lvl) 9.0 8.5-10.5 Total Protein (test code = T otal Protein) 8.1 6.4-8.4 Albumin Lvl (test code = Albumin Lvl) 4.0 3.5-5.0 ALT (test code = ALT) 48 <=65 AST (test code = AST) 17 <=37 Alk Phos (test code = Alk Phos) 109 39-136 Bili Total (test code = Bili Total) 0.5 0.2-1.3 AGAP (test code = AGAP) 9.7 10.0-20.0 B/C Ratio (test code = B/C Ratio) 15 1 6-25 Globulin (test code = Globulin) 4.1 2.7-4.2 A/G Ratio (test code = A/G Ratio) 1.0 1 0.7-1.6 eGFR (test code = eGFR) 129 [facility] [id number] 03:26:00* Test Item Value Reference Range Interpretation Comme [facility] S Preg (test code = S Preg) Negative *NA*(08/08/20 10:26 PM) [facility] [id number] 03:26:00* Test Item Value Reference Range Interpretation Comme [facility] WBC (test code = WBC) 11.3 3.7-10.4 RBC (test code = RBC) 5.22 4.20-5.40 Hgb (test code = Hgb) 13.6 12.0-16.0 Hct (test code = Hct) 40.7 36.0-48.0 MCV (test code = MCV) 77.9 80.0-98.0 MCH (test code = MCH) 26.1 pg 27.0-31.0 MCHC (test code = MCHC) 33.6 32.0-36.0 RDW (test code = RDW) 15.2 11.5-14.5 Platelet (test code = Platelet) 327 133-450 MPV (test code = MPV) 9.1 7.4-10.4 Segs (test code = Segs) 78.9 45.0-75.0 Lymphocytes (test code = Lymphocytes) 16.9 20.0-40.0 Monocytes (test code = Monocytes) 2.2 2.0-12.0 Eosinophils (test code = Eosinophils) 1.8 <=4.0 Basophils (test code = Basophils) 0.2 <=1.0 Neutrophils # (test code = Neutrophils #) 8.9 1.5-8.1 Lymphocytes # (test code = Lymphocytes #) 1.9 1.0-5.5 Monocytes # (test code = Monocytes #) 0.3 <=0.8 Eosinophils # (test code = Eosinophils #) 0.2 <=0.5 Microcyte (test code = Microcyte) 1+ *ABN*(08/08/20 10:26 PM) [facility]2014-06-24 19:20:00* Test Item Value Reference Range Interpretation Comme [facility] eGFR (test code = eGFR) 124 Calcium Lvl (test code = Calcium Lvl) 9.7 8.5-10.5 Potassium Lvl (test code = P otassium Lvl) 3.5 3.5-5.1 Sodium Lvl (test code = Sodium Lvl) 139 135-145 Creatinine Lvl (test code = Creatinine Lvl) 0.6 0.5-1.4 CO2 (test code = CO2) 21 24-32 Chloride Lvl (test code = Chloride Lvl) 108 95-109 BUN (test code = BUN) 7 7-22 Glucose Lvl (test code = Glucose Lvl) 146 70-99 AGAP (test code = AGAP) 13.5 10.0-20.0 [facility] [id number] 19:20:00* Test Item Value Reference Range Interpretation Comme [facility] Lymphocytes (test code = Lymphocytes) 10.1 20.0-40.0 Segs-Bands # (test code = Se gs-Bands #) 9.3 1.5-8.1 Lymphocytes # (test code = Lymphocytes #) 1.1 1.0-5.5 Segs (test code = Segs) 89.0 45.0-75.0 Basophils (test code = Basophils) 0.1 <=1.0 Monocytes (test code = Monocytes) 0.8 2.0-12.0 Monocytes # (test code = Monocytes #) 0.1 <=0.8 INR (test code = INR) 1.01 0.85-1.17 PT (test code = PT) 13.2 s 12.0-14.7 MCV (test code = MCV) 82.6 81.0-99.0 Hct (test code = Hct) 37.0 36.0-48.0 MCH (test code = MCH) 28.7 pg 27.0-31.0 MCHC (test code = MCHC) 34.7 32.0-36.0 RDW (test code = RDW) 13.6 11.5-14.5 Platelet (test code = Platelet) 282 133-450 MPV (test code = MPV) 8.7 7.4-10.4 Hgb (test code = Hgb) 12.8 12.0-16.0 RBC (test code = RBC) 4.47 4.20-5.40 WBC (test code = WBC) 10.5 3.7-10.4 [facility] Notes Date/Time Note Provider Source 2025-01-25 08:51:51 Refill has been sent to pharmacy on file. ND CLASS WELDER Nancy Byrd RN [facility] 2025-01-25 08:05:17 Carmelina Alicia is a 29 year old female Patient is requesting refill for levothyroxine 150 mcg tablet She will be out before her FU appt 04/04/2025 Please advise [facility] 2025-01-17 10:30:50 Closing encounter. Patient viewed mychart. Reviewed urine culture. Sent Amoxicillin for UTI treatment to patient's pharmacy. Written by ADELAIDE Kingston on 01/17/2025 9:29 AM SECOND CLASS WELDER Seen by patient Carmelina Alicia on 01/17/2025 9:30 AM ND CLASS WELDER Martine Barnett RN [facility] 2025-01-17 09:35:03 Carmelina Alicia is a 29 year old female Called patient, no answer, LVM. [facility] call us back for any other questions/concerns. ND CLASS WELDER Martine Barnett RN [facility] 2025-01-17 09:27:42 Reviewed urine culture. Sent Amoxicillin for UTI treatment to patient's pharmacy. [facility] 2024-12-31 13:15:00 Images from the original note were not included. Venipuncture collection performed by clean technique on the right anticubitus. Total of 1 attempts were made. Slight pressure and a bandage/dressing were applied to the site(s). The patient experienced no complications. The following specimens were processed according to instructions and sent to [facility] laboratories per lab order on 12/31/2024 : LT BLUE SST 2 RED 1 LAV PPT DK GREEN (LiHep) DK GREEN (SodH) BECERRA DK BLUE (K2) DK BLUE (S) ACD Blood Culture NIPT/NTD [facility] 2024-12-30 09:44:14 Name and verified, pt is aware of Diflucan sent to her pharmacy and to call back after treatment for evaluation if symptoms persist. Pt verbalized understanding. Yadira Le RN 12/30/2024 9:45 AM ND CLASS WELDER Yadira Le RN [facility] 2024-12-30 08:52:51 Name and verified, pt states she has been on metronidazole for about 6 days and is still experiencing green discharge, nausea, itching, burning, and uterine pain. Pt states she is also taking doxycycline for about 2 days. Pt states she is concerned about her symptoms not resolving. Pt states her pain is 6/10 on pain scale. Pt states her last sexual intercourse was Friday and antibiotics were started on Friday. Pt states her partner is also on antibiotics, which were started on Friday. Pt was advised she should refrain from sexual activity during her course of antibiotics and for 2 weeks after her and partner have been treated. Pt states she was not aware of that. Pt was informed she may take tylenol for pain. She may try yogurt and probiotics to help with itching, but will advise with Dr. Fitzpatrick about possible yeast medication. Pt verbalized understanding. Yadira Le RN 12/30/2024 9:08 AM [facility] 2024-12-30 08:21:54 Patient has appt tomorrow as follow up from Urgent Care, but wants to discuss med she is currently taking that was prescribed for STD. L Zamora [facility] 2024-12-28 16:25:47 Spoke to patient to let her know provider prescribed Doxycycline for seven days. Pt verbalized understanding. L Graff RN [facility] 2024-12-27 20:24:52 Sent Doxycycline for seven days. [facility] 2024-12-24 08:43:29 Pt scheduled for today. L Ruiz [facility] 2024-12-23 17:52:41 Carmelina Alicia is a 29 year old female Pt has possible yeast infection and requesting the soonest appt available. [phone] (home) ND CLASS WELDER Mariela Concepcion [facility] 2024-10-11 15:00:00 Images from the original note were not included. Venipuncture collection performed by clean technique on the right anticubitus. Total of 1 attempts were made. Slight pressure and a bandage/dressing were applied to the site(s). The patient experienced no complications. The following specimens were processed according to instructions and sent to [facility] laboratories per lab order on today: LT BLUE SST 1 RED LAV PPT DK GREEN (LiHep) DK GREEN (SodH) BECERRA DK BLUE (K2) DK BLUE (S) ACD Blood Culture NIPT/NTD ND CLASS WELDER [facility] 2024-07-19 08:08:06 Images from the original note were not included. 05/20/2024: Edson Bergman NP 06/09/2024 4:55 PM CDT Back to Top Iron is low. Continue iron supplements Component Ref Range & Units 3 mo ago VIT D 25OH 25 - 80 ng/mL 26 Resulting Agency Todd Joyce RN [facility] 2024-07-14 19:41:20 Received record from [facility] -04/21/2024: IUD removed without difficulty documented Laurie Fitzpatrick MD 07/14/2024 7:[address] [facility] 2024-07-13 10:25:08 Medical records received from [facility], placed on doctor's desk for review. Cordelia Yan [facility] 2024-07-09 10:09:04 Returned patients call, verified name and . Patient wanted to verify if CT Scan will be able to see why there is inflammation in her stomach I advised patient that we would have to view the results once she had the CT to see the cause.Patient verbalized understanding Anabel Garcia MA 07/09/2024 10:15 AM Anabel Garcia MA [facility] 2024-07-09 09:57:44 Carmelina Alicia is a 29 year old female is returning missed call to clinic,would like to discuss other things Jose Bradley [facility] 2024-07-09 09:53:28 Spoke with patient, patient is wanting to know what was going to be done for her abdomen pain. Informed patient per ADELAIDE Posadas during the time of her exam in office the pain is more pelvic related and not abdomen. Patient was prescribe Flagyl and Diclofenac for pain. Katharina went ahead and placed orders CT abdomen for patient. Patient had no further questions or concerns. Nancy Tomas MA [facility] 2024-07-09 09:18:22 Forward to Correct clinic. Deborah Fowler RN [facility] 2024-07-09 08:26:47 Pt is wanting to clarify more about her office visit on 07/05/24 due to stomach issues and pelvic issues. Pt states did not receive any after visit notes and unsure if ÁNGELA Bergman was going to prescribe a medication for your stomach issues and if was going to do a ultra sound on the abdomen. Pt is aware she is having a ultra sound in the pelvic. Marilee in [place]. Sari Diego [facility] 2024-07-05 15:30:00 Addended by: EDSON BERGMAN NP on: 07/09/2024 09:52 AM Modules accepted: Orders [facility] 2024-05-21 00:35:17 Pt given printed and verbal discharge instructions regarding chest pain, abnormal EKG. Encouraged hydration, Pt verbalized understanding of instructions, pt awake alert oriented, resp reg unlabored, skin w/d, color appropriate for race, moves all ext well,pt encouraged to follow up with Cardiology. Advised to seek medical attention for new/prolonged/worsening of symptoms, Symptoms improved No adverse reaction to meds given in ER noted upon discharge PIV d'cd, dressing to site, catheter in tact. Awake, alert oriented, resp reg unlabored, skin w/d, pt leaving amb with steady gait, in no apparent distress. [facility] 2024-05-21 00:21:19 Provider going over results with pt. [facility] 2024-05-20 19:13:26 Pt left the gym and began to have numbness in extremities and chest pain. Sharp pains to right side of chest. Pt hyperventilating in triage. Able to help pt slow breathing down. Pt still complaining of sharp pain in right side of chest and face tingling. Sarah Mehta RN [facility] 2024-05-18 10:15:00 Images from the original note were not included. Venipuncture collection performed by clean technique on the right anticubitus. Total of 1 attempts were made. Slight pressure and a bandage/dressing were applied to the site(s). The patient experienced no complications. The following specimens were processed according to instructions and sent to [facility] laboratories per lab order on 05/18/2024 : LT BLUE SST 2 RED LAV 2 PPT DK GREEN (LiHep) DK GREEN (SodH) BECERRA DK BLUE (K2) DK BLUE (S) ACD Blood Culture NIPT/NTD [facility]2024-05-08 16:12:12 Carmelina Alicia is a 28 year old female Pt called regarding discussing results and also on what she can do since she does not currently have a PCP. Has appointment scheduled for 04/09/24. Please advise. T Clemente PatelFormerly [facility] CenterBlrdgm2721-86-90 15:00:00 Images from the original note were not included. Venipuncture collection performed by clean technique on the left anticubitus. Total of 1 attempts were made. Slight pressure and a bandage/dressing were applied to the site(s). The patient experienced no complications. The following specimens were processed according to instructions and sent to [facility] laboratories per lab order on 04/05/2024 : LT BLUE SST 2 RED LAV 1 PPT DK GREEN (LiHep) DK GREEN (SodH) BECERRA DK BLUE (K2) DK BLUE (S) ACD Blood Culture NIPT/NTD [facility] HospitalCzwink6282-88-75 16:00:00 Images from the original note were not included. Venipuncture collection performed by clean technique on the right anticubitus. Total of 1 attempts were made. Slight pressure and a bandage/dressing were applied to the site(s). The patient experienced no complications. The following specimens were processed according to instructions and sent to [facility] laboratories per lab order on 03/19/2024: LT BLUE SST 1 RED LAV PPT DK GREEN (LiHep) DK GREEN (SodH) BECERRA DK BLUE (K2) DK BLUE (S) ACD Blood Culture NIPT/NTD [facility] HospitalKlekei2958-76-61 16:53:55 My chart message sent Jordy Sena MD [employer] Division of Endocrinology [facility] HospitalXmathi8351-61-27 08:13:17 Patient has an appointment with Dr. Sena 04/05/24. Can labs be done at that time or does patient need to come in sooner? Rita Allison RNMount St. Mary HospitalBrmwoo6648-56-45 13:13:56 Carmelina Alicia is a 28 year old female Pt is calling requesting to come in for labs to make sure her thyroid levels are where they're supposed to be and that she isn't taking too much medication. Please give the pt a call. [phone] (home) Nicole MosherMount St. Mary HospitalLuulka0525-64-80 23:24:15* Brain shunt series DX 08/08/2020 10:21 PM CDT INDICATION: - headache, h/o Two Needle Machine Operator shunt COMPARISON: 05/24/2014. FINDINGS: A right posterior parietal ventriculostomy catheter is in place. The catheter traverses the right neck, right chest, right upper abdomen with its tip in the left side of the pelvis. The ventriculostomy catheter is intact. The visualized lungs are clear without opacification, pleural effusion. The visualized abdomen reveals nonspecific bowel gas pattern. IMPRESSION: 1. A right posterior parietal ventriculostomy catheter is in place, traversing the right neck, right anterior chest, right anterior abdomen with its tip in the left side of the pelvis. The ventriculostomy catheter is intact. Otherwise unremarkable examination. Kylah OcasioAsrx2488-60-48 22:41:19* Brain wo contrast CT 08/08/2020 10:20 PM CDT Clinical Indication: - headache, weakness; COMPARISON: None TECHNIQUE: Axial CT images of the brain are obtained from the skull base to the vertex. Axial, sagittal, and coronal images are interpreted. Contrast: No IV contrast. DLP: 618.75 mGy-cm. This exam was performed according to our departmental dose-optimization protocol, which includes automated exposure control, adjustment of the mA and/or kV according to patient size and/or use of iterative reconstruction technique. FINDINGS: BRAIN: A right posterior parietal ventriculostomy catheter has its tip in the region of the posterior aspect of the right thalamus. The ventricles including the lateral, the 3rd and 4th ventricles are well decompressed. The sulci, cisterns are normal. The becerra and white matter differentiation in the brain is maintained. No intra or extra-axial fluid collections are seen. No midline shift is seen. The posterior fossa appears unremarkable. SKULL: No skull abnormality is seen. VENTRICLES: The ventricles are normal in size and configuration. ORBITS, VISUALIZED PARANASAL SINUSES AND MASTOIDS: Visualized paranasal sinuses are clear. The mastoid air cells are clear. No orbital pathology is seen. IMPRESSION: 1. No acute intracranial abnormality identified. 2. A right posterior parietal ventriculostomy catheter has its tip in the region of the posterior aspect of the right thalamus with the ventricles well decompressed as described above. Otherwise unremarkable examination. [place]
[2025-04-19] MEDS ORDERED: NA CHLORIDE 0.9% 1,000 ML ONE (00:08)
[2025-04-19 00:15] LABS: PT Prothrombin Time 11.4 SECONDS (10-13.0)
[2025-04-19 00:16] LABS: Absolute Eosinophils 0.4 K/uL (0-0.5); Absolute Lymphocytes (CBC) 2.1 K/uL (0.7-4.9); Absolute Monocytes 0.6 K/uL (0.1-1.3); Basophils % 0.5 % (0-1.3); Eosinophils % 5.3 % (0-4.4); Hematocrit 37.4 % (36.0-45.0); Hemoglobin 13.1 g/dL (12.0-15.0); Lymphocytes % 25.7 % (15.3-44.8); MCH 29.4 pg (27.0-35.0); MCHC 35.1 g/dL (32.0-36.0); MCV 83.9 fL (80-100); MPV 8.8 fL (7.6-11.3); Monocytes % 7.3 % (3.3-12.3); Neutrophils % 61.2 % (41.7-73.7); Nucleated Red Blood Cells % 0.1 % (0-0); Platelets 269 thou/uL (152-406); RBC Red Blood Cell Count 4.46 M/uL (3.86-4.86); Red Cell Distribution Width 13.4 % (12.1-15.2)
[2025-04-19 00:30] LABS: Albumin 3.6 g/dL (3.4-5.0); Albumin/Globulin Ratio 0.8 (1.1-1.8); Anion Gap 8.7 mEq/L (5.0-15.0); Bilirubin Total 0.4 mg/dL (0.2-1.0); Globulin 4.3 g/dL (2.3-3.5); Protein, Total 7.9 g/dL (6.4-8.2); Specific Gravity 1.007 (1.005-1.030); Sqamous Epithelial <5 /HPF (None Seen); Urine Bacteria None Seen /HPF (<20); Urine Bilirubin NEGATIVE (Negative); Urine Blood 3+ (OVER) (Negative); Urine Clarity Turbid (Clear); Urine Color Colorless (Yellow); Urine Culture Reflex Order NOT NEEDED; Urine Glucose NEGATIVE (Negative); Urine Ketones NEGATIVE (Negative); Urine Microscopic Reflex YN ORDER UMIC; Urine Nitrite NEGATIVE (Negative); Urine Protein NEGATIVE (Negative); Urine RBC >50 /HPF (None Seen); Urine Urobilinogen Normal (Normal); Urine WBC <5 /HPF (<5); Urine pH 6.5 (5.0-7.0)
[2025-04-19 00:31] LABS: Potassium 3.7 mEq/L (3.5-5.1)
--- NOTE | 2025-04-19 02:38 | RAD REPORT ---
EXAM DESCRIPTION: Abdomen Pelvis W Contrast RadLex: CT ABDOMEN PELVIS WITH IV CONTRAST CLINICAL HISTORY: 29 years Female; ABD PAIN; IV ONLY Bed Name: 5 TECHNIQUE: CT of the abdomen and pelvis [with] intravenous contrast. All CT scans at this facility use dose modulation, iterative reconstruction, and/or weight based dosi ng when appropriate to reduce radiation dose to as low as reasonably achievable. COMPARISON: None. FINDINGS: Exam limited due to motion. Lower thorax: Lung bases are clear Abdomen: Stomach: Within normal limits Liver: No focal lesions. No intrahepatic ductal distention. Gallbladder: Nondistended Pancreas: Within normal limits Spleen: Calcified granulomas noted. Right kidney: No hydronephrosis. No focal lesion. Contrast in the collecting system. Left kidney: No hydronephrosis. No focal lesion. Contrast in the of collecting system. Adrenal glands: Within normal limits Vascular structures: Within normal limits Nodes: No lymphadenopathy by size criteria Pelvis: Small bowel: No significant distention. Appendix: Within normal limits Colon: No distention or acute pericolonic edema. Moderate stool burden. Peritoneum: No free air. Small volume of free fluid in the pelvis. Shunt catheter tubing tip noted in the pelvis. Bones: No acute bone findings. Bladder: Unremarkable. Reproductive organs: No acute findings. IMPRESSION: 1. Exam limited due to motion. 2. No acute abdominopelvic findings. 3. Moderate stool burden. 4. Small volume of free fluid in the pelvis. Electronically signed by: Jas Rutherford MD 04/19/2025 02:27 AM [employer] Due to temporary technical issues with the PACS/StoreAge reporting system, reports are being cruz d by the in-house radiologist without review as a courtesy to ensure prompt reporting the interpreting radiologist is fully responsible for the content of the report. Transcribed Date/Time: 04/19/2025 2:38 AM
--- NOTE | 2025-04-19 02:51 | ER ---
Nurse's Notes [facility] Name: Carmelina Alicia Age: 29 yrs Sex: Female : 1995 Arrival Date: 04/18/2025 Time: 22:01 Bed 5 Private MD: Diagnosis: Dysmenorrhea, unspecified;Nausea Presentation: 04/18 23:05 Chief complaint: Patient states: I have been having burning pain, heavy period with jb4 blood clots, fever, chills, lightheaded, feeling weak, and nauseated for the past 2 days. Coronavirus screen: At this time, the client does not indicate any symptoms associated with coronavirus-19. 23:05 Method Of Arrival: Ambulatory jb4 23:05 Ebola Screen: No symptoms or risks identified at this time. Initial Sepsis Screen: Does jb4 the patient meet any 2 criteria? No. Patient's initial sepsis screen is negative. Does the patient have a suspected source of infection? No. Patient's initial sepsis screen is negative. Risk Assessment: Do you want to hurt yourself or someone else? Patient reports no desire to harm self or others. Onset of symptoms was April 17, 2025. 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 - Infectious Disease History:: Denies. - Social history:: Smoking status: Patient denies any tobacco usage or history of. Screenin:00 [facility] ED Fall Risk Assessment (Adult) History of falling in the last 3 months, jb4 including since admission No falls in past 3 months (0 pts) Confusion or Disorientation No (0 pts) Intoxicated or Sedated No (0 pts) Impaired Gait No (0 pts) Mobility Assist Device Used No (0 pt) Altered Elimination No (0 pt) Score/Fall Risk Level 0 - 2 = Low Risk Oriented to surroundings, Maintained a safe environment. Abuse screen: Denies threats or abuse. Nutritional screening: No deficits noted. Tuberculosis screening: No symptoms or risk factors identified. Assessment: 04/18 23:30 General: Appears in no apparent distress. uncomfortable, Behavior is calm, cooperative, jb4 appropriate for age. Pain: Complains of pain in pelvis Pain does not radiate. Pain currently is 8 out of 10 on a pain scale. Neuro: Level of Consciousness is awake, alert, obeys commands, Oriented to person, place, time, situation. Cardiovascular: Patient's skin is warm and dry. Respiratory: Airway is patent Respiratory effort is even, unlabored, Respiratory pattern is regular, symmetrical. GI: Abdomen is flat, non-distended. : Vaginal discharge is izabela blood, Reports vaginal bleeding that is bright red, with clots, heavy flow. Derm: Skin is intact, Skin is pink, warm \T\ dry. 04/19 00:34 Reassessment: Patient appears in no apparent distress at this time. Patient and/or jb4 family updated on plan of care and expected duration. Pain level reassessed. Patient is alert, oriented x 3, equal unlabored respirations, skin warm/dry/pink. 01:49 Reassessment: Patient appears in no apparent distress at this time. Patient and/or jb4 family updated on plan of care and expected duration. Pain level reassessed. Patient is alert, oriented x 3, equal unlabored respirations, skin warm/dry/pink. Vital Signs: 04/18 23:05 Resp 16; Temp 98.6; Weight 86.18 kg; Height 5 ft. 5 in. ; jb4 23:57 BP 125 / 71 LA Supine (auto/reg); Pulse 66; Resp 16; Pulse Ox 98% on R/A; jb4 23:59 BP 139 / 94 LA Sitting (auto/reg); Pulse 80; Resp 16; Pulse Ox 100% on R/A; jb4 04/19 00:00 BP 143 / 89 LA Standing (auto/reg); Pulse 94; Resp 16; Pulse Ox 99% on R/A; jb4 01:15 BP 107 / 83; Pulse 90; Resp 16; Pulse Ox 99% on R/A; jb4 04/18 23:05 Body Mass Index 31.62 (86.18 kg, 165.1 cm) [facility] ED Course: 04/18 22:06 Patient arrived in ED. al6 22:08 Tong Dyer PA is PHCP. cp 22:08 Mundo Mendoza MD is Attending Physician. cp 23:05 Anmol Loredo, RN is Primary Nurse. rg5 23:44 CBC with Diff Sent. jb4 23:44 CMP Sent. jb4 23:44 Lipase Sent. jb4 23:44 PT-INR Sent. jb4 23:45 Test, Urine Sent. jb4 23:45 UA Rfx Luan Cult if indicated Sent. jb4 23:45 Ptt, Activated Sent. jb4 04/19 00:00 Patient has correct armband on for positive identification. Bed in low position. Call jb4 light in reach. Side rails up X 1. Provided Education on: plan of care. 00:30 Triage completed. jb4 00:30 Arm band placed on right wrist. jb4 01:13 CT Abd/Pelvis - IV Contrast Only In Process Unspecified. EDMS 03:27 No provider procedures requiring assistance completed. IV discontinued, intact, vc1 bleeding controlled, No redness/swelling at site. Pressure dressing applied. Administered Medications: 00:22 Drug: NS 0.9% IV 1000 ml IV at 1000 ml once; to be given as a bolus over 60 minutes jb4 Route: IV; Rate: 1000 ml; Site: right antecubital; 00:33 Not Given (pt has an allergy to medicationn): [id number] mg IVP once jb4 02:58 Not Given (Patient Refused): [id number] mg PO once jb4 02:58 Not Given (Patient Refused): [id number] mg PO once jb4 Medication: 00:00 VIS not applicable for this client. jb4 Outcome: 02:51 Discharge ordered by . cp 03:27 Discharged to home ambulatory, vc1 03:27 Condition: stable 03:27 Discharge instructions given to patient, Instructed on discharge instructions, follow up and referral plans. medication usage, Demonstrated understanding of instructions, follow-up care, medications, Prescriptions given X 2, 03:28 Patient left the ED. vc1 Signatures: Dispatcher [employer] EDOK Tong Dyer PA PA cp Bryson, James, RN RN jb4 Fabienne Gregory RN RN vc1 Anmol Loredo, JOON RN rg5 Lilian Clements al6
--- NOTE | 2025-04-19 02:51 | EDPHYS ---
Physician Documentation [facility] Name: Carmelina Alicia Age: 29 yrs Sex: Female : 1995 Arrival Date: 04/18/2025 Time: 22:01 Bed 5 Private MD: ED Physician Mundo Mendoza HPI: 04/18 23:15 This 29 yrs old Female presents to ER via Unassigned with complaints of cp Abdominal Pain, Vaginal Bleeding, Dizziness. 23:15 The patient presents with abdominal pain. cp 23:15 Onset: The symptoms/episode began/occurred 2 day(s) ago. cp 23:15 Associated signs and symptoms: Pertinent positives: fever, nausea, weakness, dizziness, cp Pertinent negatives: chest pain. The symptoms are described as burning. Severity of pain: in the emergency department the pain is unchanged despite home interventions. 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 - Infectious Disease History:: Denies. - Social history:: Smoking status: Patient denies any tobacco usage or history of. ROS: 04/18 23:20 Constitutional: Negative for fever, cp 23:20 Eyes: Negative for injury, pain, redness, and discharge, cp 23:20 ENT: Negative for drainage from ear(s), ear pain, sore throat, difficulty swallowing, difficulty handling secretions, 23:20 Cardiovascular: Negative for chest pain, palpitations, 23:20 Respiratory: Negative for cough, shortness of breath, wheezing, 23:20 Abdomen/GI: Positive for abdominal pain, nausea, Negative for constipation, 23:20 : Positive for vaginal bleeding, 23:20 Neuro: Positive for dizziness, weakness, Negative for altered mental status, headache, syncope, near syncope, 23:20 All other systems are negative, Exam: 23:25 Constitutional: The patient appears in no acute distress, alert, awake, non-toxic, well cp developed, well nourished, 23:25 Head/Face: Normocephalic, atraumatic. cp 23:25 Eyes: Periorbital structures: appear normal, Conjunctiva: normal, no exudate, no injection, Sclera: no appreciated abnormality, Lids and lashes: appear normal, bilaterally, 23:25 ENT: External ear(s): are unremarkable, Nose: is normal, Mouth: Lips: moist, Oral mucosa: moist, Posterior pharynx: Airway: no evidence of obstruction, patent, 23:25 Chest/axilla: Inspection: normal, 23:25 Cardiovascular: Rate: normal, Rhythm: regular, Edema: is not appreciated, JVD: is not appreciated, 23:25 Respiratory: the patient does not display signs of respiratory distress, Respirations: normal, no use of accessory muscles, no retractions, labored breathing, is not present, Breath sounds: are clear throughout, no decreased breath sounds, no stridor, no wheezing, 23:25 Abdomen/GI: Inspection: abdomen appears normal, Bowel sounds: active, all quadrants, Palpation: soft, in all quadrants, moderate abdominal tenderness, in the right lower quadrant and left lower quadrant, rebound tenderness, is not appreciated, voluntary guarding, is not appreciated, 23:25 Back: CVA tenderness, is absent, 23:25 Neuro: Orientation: to person, place \T\ time. Mentation: is normal, Motor: moves all fours, strength is normal, Vital Signs: 23:05 Resp 16; Temp 98.6; Weight 86.18 kg; Height 5 ft. 5 in. ; jb4 23:57 BP 125 / 71 LA Supine (auto/reg); Pulse 66; Resp 16; Pulse Ox 98% on R/A; jb4 23:59 BP 139 / 94 LA Sitting (auto/reg); Pulse 80; Resp 16; Pulse Ox 100% on R/A; jb4 04/19 00:00 BP 143 / 89 LA Standing (auto/reg); Pulse 94; Resp 16; Pulse Ox 99% on R/A; jb4 01:15 BP 107 / 83; Pulse 90; Resp 16; Pulse Ox 99% on R/A; jb4 04/18 23:05 Body Mass Index 31.62 (86.18 kg, 165.1 cm) jb4 MDM: 04/18 23:05 Medical Screening Exam initiated cp 05/20 00:00 Differential diagnosis: Endometriosis, non-specific abd pain, Peptic Ulcer Disease, cp Perf. Duodenal Ulcer, Perf. Gastric Ulcer, Pelvic Inflammatory Disease, Pyelonephritis, Tubal Ovarian Abcess, Ureterolithiasis, urinary tract infection. 02:50 Data reviewed: vital signs, nurses notes, lab test result(s), radiologic studies, CT cp scan, and as a result, I will discharge patient. 02:50 I considered the following discharge prescriptions or medication management in the emergency department Medications were administered in the Emergency Department. See MAR. Counseling: I had a detailed discussion with the patient and/or guardian regarding the historical points, exam findings, and any diagnostic results supporting the discharge/admit diagnosis, lab results, radiology results, to return to the emergency department if symptoms worsen or persist or if there are any questions or concerns that arise at home. Special discussion: Based on the patient's Hx, exam, and Dx evaluation, there is no indication for emergent surgery or inpatient Tx. It is understood by the patient/guardian that if the Sx's persist or worsen they need to return immediately for re-evaluation. 04/18 23:29 Order name: CBC with Diff; Complete Time: 00:34 cp 04/19 00:34 Interpretation: Normal except: EOSINOPHIL % 5.3. 04/18 23:29 Order name: CMP; Complete Time: 00:34 cp 04/19 00:34 Interpretation: Normal except: CL 109; GLOB 4.3; A/G 0.8. 04/18 23:29 Order name: Lipase; Complete Time: 00: cp 04/18 23:29 Order name: PT-INR; Complete Time: 00: cp 04/18 23:29 Order name: Ptt, Activated; Complete Time: 00: cp 04/18 23:29 Order name: UA Rfx Luan Cult if indicated; Complete Time: 00:34 cp 04/19 00:34 Interpretation: Normal except: [facility] Turbid; UBLD 3+ (OVER); URBC >50. 04/18 23:29 Order name: Test, Urine; Complete Time: 00:34 cp 04/18 23:41 Order name: CT Abd/Pelvis - IV Contrast Only cp 04/18 23:10 Order name: Orthostatics; Complete Time: 00: cp 04/18 23: Order name: IV Saline Lock; Complete Time: 23:44 cp 04/18 23:29 Order name: Labs collected and sent; Complete Time: 23:44 cp 04/19 02:46 Order name: PO challenge; Complete Time: 02:58 cp Administered Medications: 00:22 Drug: NS 0.9% IV 1000 ml IV at 1000 ml once; to be given as a bolus over 60 minutes jb4 Route: IV; Rate: 1000 ml; Site: right antecubital; 00:33 Not Given (pt has an allergy to medicationn): [id number] mg IVP once jb4 02:58 Not Given (Patient Refused): [id number] mg PO once jb4 02:58 Not Given (Patient Refused): [id number] mg PO once jb4 Disposition: 19:36 Co-signature as Attending Physician, Mundo Mendoza MD I agree with the assessment sp4 and plan of care. I reviewed the patient's care provided by the Advanced Practice Provider and agree with the diagnosis and treatment plan. Chart complete. Disposition Summary: 04/19/25 02:51 Discharge Ordered Notes: Location: Home cp Problem: new cp Symptoms: have improved cp Condition: Stable cp Diagnosis - Dysmenorrhea, unspecified cp - Nausea cp Followup: cp - With: Private Physician - When: 2 - 3 days - Reason: Worsening of condition Discharge Instructions: - Discharge Summary Sheet cp - Dysmenorrhea cp - Nausea and Vomiting, Adult cp Forms: - Medication Reconciliation Form cp - Antibiotic Education cp - Prescription Opioid Use cp - Patient Portal Instructions cp - Leadership Thank You Letter cp Prescriptions: - Zofran 4 mg Oral Tablet - take 1 tablet ORAL route every 12 hours As needed; 20 tablet; Refills: 0, cp Product Selection Permitted - dicyclomine 20 mg Oral tablet - take 1 tablet ORAL route 4 times per day; 30 tablet; Refills: 0, Product cp Selection Permitted Signatures: Dispatcher [employer] EDMS Tong Dyer PA PA cp Bryson, James, JOON RN Mundo Arango MD MD sp4 Corrections: (The following items were deleted from the chart) 04/18 23:42 23:42 Abdomen Pelvis W Con+CT.RAD.BRZ ordered. EDMS EDMS
[2025-04-19 03:34] VITALS: TEMP 98.6
[2025-04-19 03:38] VITALS: O2SAT 99
[2025-04-19 03:39] VITALS: BP 107/83
== END 2025-04-19 03:28 | disposition home or self-care (01) ==
LOC: ER 22:01
DX: N94.6 Dysmenorrhea, unspecified (principal); R11.0 Nausea
CPT/HCPCS: 36415; 74177; 80053; 81001; 81025; 83690; 85025; 85610; 85730; 99284; J7030; Q9967

== ENCOUNTER 2025-04-19 21:23 | Emergency (ER) | payer SELFPAY ==
[2025-04-19] MEDS ORDERED: ONDANSETRON 4 MG/2 ML VIAL ONE (21:39)
[2025-04-19] MEDS ORDERED: ZIPRASIDONE MESYLA 20 MG/VIAL IM ONE (21:40)
[2025-04-19] MEDS ORDERED: FENTANYL CITR 100 MCG/2 ML ONE (21:40)
[2025-04-19] MEDS ORDERED: TRANEXAMIC ACID 1,000 MG/10 ML VIAL IV ONE (21:40)
[2025-04-19] MEDS ORDERED: DICYCLOMINE HCL 20 MG/2 ML AMP IM ONE (21:40)
[2025-04-19] MEDS ORDERED: NA CHLORIDE 0.9% 1,000 ML ONE (21:41)
[2025-04-19] MEDS ORDERED: WATER FOR INJ,STERILE 10 ML ONE (21:41)
[2025-04-19 21:50] LABS: Absolute Eosinophils 0.6 K/uL (0-0.5); Absolute Monocytes 0.5 K/uL (0.1-1.3); Absolute Neutrophil 4.6 K/uL (1.8-8.0); Basophils % 0.5 % (0-1.3); Eosinophils % 7.5 % (0-4.4); Hematocrit 38.2 % (36.0-45.0); Hemoglobin 13.4 g/dL (12.0-15.0); Lymphocytes % 25.7 % (15.3-44.8); MCH 29.3 pg (27.0-35.0); MCHC 35.1 g/dL (32.0-36.0); MCV 83.6 fL (80-100); MPV 8.7 fL (7.6-11.3); Monocytes % 6.9 % (3.3-12.3); Neutrophils % 59.4 % (41.7-73.7); Nucleated Red Blood Cells % 0.3 % (0-0); PT Prothrombin Time 12.1 SECONDS (10-13.0); Platelets 274 thou/uL (152-406); Protime INR 1.06; RBC Red Blood Cell Count 4.57 M/uL (3.86-4.86)
--- OUTSIDE RECORDS SUMMARY | 2025-04-19 21:57 | XMS REPORT | Continuity of Care Document ---
Author Name Unknown Address [address] [facility] [address] [place] [address] [facility] Address [address] [facility] 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 Name Role Phone Jason Bartlett Primary Care Physician [phone] JORDY SENA Attending Clinician Unavailable LAURIE FITZPATRICK Attending Clinician Unavailable LAURIE FITZPATRICK Attending Clinician Unavailable ИВАН WALL Attending Clinician Unavailable Jordy Sena MD Attending Clinician [phone] Laurie Fitzpatrick MD Attending Clinician Juan Dillard Attending Clinician Neema Guadalupe PA-C Attending Clinician [phone] Hina Garcia MD Attending Clinician Loan Walton Attending Clinician Unavailable JUAN GILMAN Attending Clinician Unavailable Unknown, Attending Attending Clinician Unavailab le 2, [facility] Attending Clinician Unavailable Mae QURESHIИван Attending Clinician [phone] NEEMA GUADALUPE Attending Clinician Unavailable EDSON BERGMAN Attending Clinician Unavailab EDSON Brizuela Attending Clinician Unavailab margarita Bergman NP, Edson Attending Clinician [phone] Lab, Ang - Db Attending Clinician Unavailable Scott Izaguirre MD Attending Clinician [phone] SCOTT IZAGUIRRE Attending Clinician Unavailable Doctor Unassigned, [place] Attending Clinician U alexandria Portillo MD, Marlon Attending Clinician [phone] MARLON PORTILLO Attending Clinician Unavailable Marlon Portillo MD Attending Clinician [phone] HARMONY BARNARD Attending Clinician Unavailable HARMONY BARNARD Attending Clinician Unavailable 2, Adc [facility] Attending Clinician Unavailable ALESHIA DONALDSON Attending Clinician Unavail able Doctor Unassigned, [place] Attending Clinician U CHAYA Braga Attending Clinician UnavailJordy Dowling MD Attending Clinician [phone] Naren VENEER LATHE OPERATORTerri Attending Clinician [phone] Unknown, Attending Attending Clinician Unavailab TERRI Ribera Attending Clinician Unavailable CODIE SHRESTHA Attending Clinician Unavailable Lab, Ang - Db Attending Clinician Unavailable FUENTES WALSH Attending Clinician Unavailable FUENTES WALSH Attending Clinician Unavailable Juan Dillard Attending Clinician [phone] Cuba Chavez MD Attending Clinician +[phone] CUBA CHAVEZ Attending Clinician Unavailable Therese Wise Attending Clinician UnavailLAVONNE Wilcox Attending Clinician Unavailable LAVONNE STANLEY Attending Clinician Unavailable MEREDITH VILLALTA Attending Clinician Unavailable Meredith Villalta MD Attending Clinician [phone] Dinah Draper Attending Clinician +[phone] DINAH HOROWITZ Attending Clinician Unavailable Simone Li MD Attending Clinician [phone] ABBY OWENS III Attending Clinician Unavailmarie Owens III, MD, James C Attending Clinician [phone] Chaya Marquez MA Attending Clinician UnavailTODD Aragon Attending Clinician Unavailable Clinic, Neurosurgery Resident Attending Glenna mills Unavailable Abraham SMALLP, Wilver Camejo Attending Clinician [phone] Marcelo DUPREE, Mela Daly Attending Clinician +[phone] Latonya Watkins DO Attending Clinician + [phone] Lio Hernandez MD Attending Clinician [phone] SIMONE LI Attending Clinician Unavail able SIMONE LI Attending Clinician Unavail able Nallely DUPREE, Sonam Kelley Attending Clinician Unav ailable Gaetano Coburn Attending Clinician Unavailable KOLE LUNA Attending Clinician Unavailable LICHA BLAIR Attending Clinician Unavailmarie Blair VENEER LATHE OPERATOR, Licha Attending Clinician [phone] THERSEE LOPEZ Attending Clinician Unavailable Kelechi SMALLP, John Attending Clinician [phone] LATONYA WATIKNS Attending Clinician Unavailab Nick Ward Attending Clinician +[phone] NICK MICHELLE Attending Clinician Unavailab Mary Carmen Szymanski RN Attending Clinician Unavailable Only, Abel Db Test Attending Clinician Unavailmarie Smart MD, Jody Attending Clinician [phone] JODY SMART Attending Clinician Unavailable Sarina DUPREE, Ingrid Daly Attending Clinician Unavailable DEANDRE WATKINS Attending Clinician UnavailRhoda Drew RN Attending Clinician UnavailJOHN England Attending Clinician Unavailable JAMIE LOCK Attending Clinician Unavailable INÉS BOUCHER Attending Clinician Unavailab margarita Lock MD, Jamie Attending Clinician [phone] WILVER ROSARIO Attending Clinician Unavailab Supriya Hernandez RN Attending Clinician Unavailable Leoncio Tavares MD Attending Clinician [phone] Manju Barrett Attending Clinician +[phone] Romulo Ramirez Attending Clinician +[phone] Provider, [facility] Attending Clinician Un available Dixie SMALLP, Cornell Attending Clinician [phone] CORNELL COLIN Attending Clinician Unavailable Vicky Tucker MD Attending Clinician [phone] Leena Matson Attending Clinician +[phone] Madison HASTINGS, Dale Vincent Attending Clinician + [phone] Kori HASTINGS, Marta Attending Clinician +[phone] Krishna HASTINGS, Renea Arreola Attending Clinician [phone] Katelyn oLmbardi DO Attending Clinician [phone] Jose D HASTINGS, Nga Barry Attending Clinician [phone] NGA JEFFERY Attending Clinician Unavailmarie Aleman MD, Dinesh Nascimento Attending Clinician [phone] Andreea DUPREE, Jaqui Chisholm Attending Clinician Unav becka Landrum MD, Donaldo Vinson Attending Clinician [phone] ED VALDEZ Attending Clinician Unavailab margarita Leo MD, Rodrigo Martines Attending Clinician [phone] Tyree Moura MD Attending Clinician [phone] Latosha Ortiz RN Attending Clinician Unavailconrad Flores MD, Romulo Attending Clinician [phone] Duc HASTINGS, Romulo Attending Clinician +[phone] Trae SMALLP, Ed Deleon Attending Clinician +[phone] Damian Crane MD Attending Clinician [phone] Quiana HASTINGS, Romulo Attending Clinician +[phone] Faculty, [facility] Attending Clinician UnaJacek Morales DO Attending Clinician [phone] Kristopher HASTINGS, Gurjit Daly Attending Clinician +[phone] Robi DUPREE, Micaela Attending Clinician UnavailVIIVENNE Campos Attending Clinician Unavailable Tahira VENEER LATHE OPERATOR, Vivienne Attending Clinician [phone] Lab, Adc Fam Pob I Attending Clinician Unavailab margarita Huston MD, Blanca Attending Clinician + Akinsipe [facility], Aleshia Nell Attending Clinician + Carlton HASTINGS, Eulogio Attending Clinician +[phone] GURJIT SUMMERS Attending Clinician Unavailable GURJIT SUMMERS Attending Clinician Unavailable Ultrasound, [facility] Attending Clinician Unavailconrad Boucher MD, Inés Levy Attending Clinician [phone] Miguel HASTINGS, Jo Espinosa Attending Clinician +[phone] Colin HASTINGS, Blank Attending Clinician [phone] Shorty Vargas RN, Neema Attending Clinician Unavailable Ivonne VENEER LATHE OPERATOR, Yun Attending Clinician [phone] Risk, [facility]-Wwjyj-Yj/ Attending Clinician Unav ailable L[facility] Mary Carmen Juarez Attending Clinician [phone] Kat Ferrer RN Attending Clinician [phone] RENEA GALARZA Attending Clinician Unavailable Dinesh Solomon MD Attending Clinician +[phone] Gene DUPREE, Lakesha Cruz Attending Clinician Unavailab margarita Sales, [facility] Attending Clinician Unav ailable Gregory López S Attending Clinician [phone] Keshav Rosas MD Attending Clinician +[phone] GREGORY BEAVERS Attending Clinician Unavailable PIETER DONALDSON Attending Clinician Unavailable Ezekiel Mosquera Attending Clinician +[phone] Pieter Donaldson MD Attending Clinician +[phone] Yao Sinclair DO Attending Clinician +[phone] Pcp, Patient Does Not Have A Attending Clinician Cristopher HASTINGS, Kat Carter Attending Clinician + [phone] Tong Smith RN Attending Clinician Unavailab Mira Dutta RN Attending Clinician Unavail able 5, [facility] Usg Room Attending Clinician UnavailChristina Matos MD Attending Clinician DAMIAN CRANE Attending Clinician Unavailable ADRIENNE RECIO Attending Clinician Unavailable ADRIENNE RECIO Attending Clinician Unavailable GISELLE DANIELS M.D. Attending Clinician ROMULO Hidalgo Admitting Clinician Unavailable EDSON BERGMAN Admitting Clinician Unavailab MARLON Hall Admitting Clinician Unavailable HARMONY BARNARD Admitting Clinician Unavailable MEREDITH VILLALTA Admitting Clinician Unavailable Meredith Villalta MD Admitting Clinician +[phone] LIO HERNANDEZ Admitting Clinician Unavailable SIMONE LI Admitting Clinician Unavail able Marta Sheikh MD Admitting Clinician +[phone] NGA JEFFERY Admitting Clinician Unavailmarie Landrum MD, Donaldo Vinson Admitting Clinician +[phone] HARMONY BARNARD Admitting Clinician Unavailable Miguel HASTINGS, Jo Espinosa Admitting Clinician +[phone] Colin HASTINGS, Blank Admitting Clinician +[phone] PIETER DONALDSON Admitting Clinician Unavailable Pieter Donaldson MD Admitting Clinician +[phone] YAO SINCLAIR Admitting Clinician Unavailable Laurie Fitzpatrick MD Admitting Clinician [phone] Payers Payer Name Policy Type Policy Number Effective Date Expirati on Date Source [facility] [id number] 00:00:00 MEDICAID PENDING PENDING 2020 00:00:00 [facility] GENERIC [id number] 2023 00:00:00 MEDICAID OF [place] [id number] 2020 00:00:00 [employer] MEDICAID [id number] 2019 00:00:00 Problems Condition Name Condition Details Condition Category Status Onset Date Resolution Date Last Treatment Date Treating Clinician Comments Source Chest pain, unspecifie d type Chest pain, unspecifie d type Disease Active 05-24 00:00: 00 [facility] Nonintract able headache, unspecifie d chronicity pattern, unspecifie d headache type Nonintract able headache, unspecifie d chronicity pattern, unspecifie d headache type Disease Active 05-24 00:00: 00 [facility] Persistent headaches Persistent headaches Disease Active 05-01 00:00: 00 [facility] Sinus arrhythmia Sinus arrhythmia Disease Active 02-18 00:00: 00 [facility] Family history of sudden in father Family history of sudden in father Disease Active 01-26 00:00: 00 Overview: Formattin g of this note might be different from the original. Reports passed on yesterday 01-25-21 [facility] Mild intermitte nt asthma without complicati on Mild intermitte nt asthma without complicati on Disease Active 2019-12 00:00: 00 [facility] BACK PAIN BACK PAIN Active 08/08/2020 [place] Diagnosis Active 08-08 00:00: 00 2020-09-01 14:26:00 Marcel[facility] Cervantes Obstructiv e hydrocepha alex Obstructiv e hydrocepha alex Disease Active 08-18 00:00: 00 Overview: Formattin g of this note might be different from the original. Status post HEEL SLICKER shunt placement [facility] HEAD INJURY HEAD INJURY Active 05/24/2014 [place] Diagnosis Active 05-24 00:00: 00 2014-05-24 16:04:00 Marcel[facility] Cervantes Chronic lymphocyti c thyroiditi s Chronic lymphocyti c thyroiditi s Disease Active 01-15 00:00: 00 [facility] Acute headache Acute headache Active Problem 08/11/2020 [place] Problem Active 2020-08-11 21:01:09 [facility] Cervantes Asthenia (finding) Asthenia (finding) Active Problem 08/11/2020 [place] Problem Active 2020-08-11 21:01:09 [facility] Cervantes Hydrocepha alex (disorder) Hydrocepha alex (disorder) Resolved Problem 08/11/2020 [place], [place] Problem Resolve d 2020-08-11 21:01:09 [facility] Cervantes History of asthma History of asthma [facility] Hypothyroi dism Hypothyroi dism Problem Active [facility] High risk for diabetes mellitus High risk for diabetes mellitus Problem Active [facility] Chronic hypertensi on affecting Chronic hypertensi on affecting Disease Resolve d 2-26 00:00: 00 2024-07-08 00:00:00 2024-07-08 09:38:49 [facility] Abnormal maternal glucose tolerance, antepartum Abnormal maternal glucose tolerance, antepartum Disease Resolve d 2019-12 0-15 00:00: 00 2024-07-08 00:00:00 2024-07-08 09:38:46 [facility] Multiparit y Multiparit y Disease Resolve d 9-23 00:00: 00 2024-07-08 00:00:00 2024-07-08 09:38:44 [facility] Short interval between pregnancie s affecting in first trimester, antepartum Short interval between pregnancie s affecting in first trimester, antepartum Disease Resolve d 9-23 00:00: 00 2024-07-08 00:00:00 2024-07-08 09:38:45 [facility] 38 weeks gestation of 38 weeks gestation of Disease Resolve d 2018-12 2-06 00:00: 00 2024-07-08 00:00:00 2024-07-08 09:38:43 [facility] Hypothyroi d in , antepartum Hypothyroi d in , antepartum Disease Resolve d 2-16 00:00: 00 2024-07-08 00:00:00 2024-07-08 09:38:57 Overview: Formattin g of this note might be different from the original. ICD10 Diagnosis Term On Site [employer] Technician Utility [facility] Need for Tdap vaccinatio n Need for Tdap vaccinatio n Disease Resolve d 3-10 00:00: 00 2021-04-08 00:00:00 2021-04-08 12:07:34 [facility] Supervisio n of high risk in second trimester Supervisio n of high risk in second trimester Disease Resolve d 7-18 00:00: 00 2021-04-08 00:00:00 2021-04-08 11:53:24 [facility] Obesity affecting in second trimester Obesity affecting in second trimester Disease Resolve d 2017-12 2-11 00:00: 00 2021-04-08 00:00:00 2021-04-08 11:53:22 [facility] Drug allergy, multiple Drug allergy, multiple Disease Resolve d 2015- 6-06 00:00: 00 2021-04-08 00:00:00 2022-06-16 00:40:55 [facility] IIH (idiopathi c intracrani al hypertensi on) IIH (idiopathi c intracrani al hypertensi on) Disease Resolve d 2019-12 00:00: 00 2020-12-24 00:00:00 2020-12-24 20:00:31 [facility] Diplopia Diplopia Disease Resolve d 2019-12 00:00: 00 2020-12-24 00:00:00 2020-12-24 20:00:29 [facility] Intractabl e headache Intractabl e headache Disease Resolve d 2019-12 00:00: 00 2020-12-24 00:00:00 2020-12-24 20:00:36 [facility] Headache in , first trimester Headache in , first trimester Disease Resolve d 2019-12 00:00: 00 2020-12-24 00:00:00 2020-12-24 20:00:38 [facility] Class 2 obesity in adult, unspecifie d BMI, unspecifie d obesity type, unspecifie d whether serious comorbidit y present Class 2 obesity in adult, unspecifie d BMI, unspecifie d obesity type, unspecifie d whether serious comorbidit y present Disease Resolve d -20 00:00: 00 2020-10-08 00:00:00 2020-10-08 17:45:01 [facility] Acquired autoimmune hypothyroi dism Acquired autoimmune hypothyroi dism Disease Resolve d -18 00:00: 00 2020-10-08 00:00:00 2022-06-16 00:32:11 [facility] Muscle spasm Muscle spasm Disease Resolve d 08-23 00:00: 2020-08-27 00:00:00 2020-08-27 11:19:25 [facility] BMI 39.0-39.9, adult BMI 39.0-39.9, adult Disease Resolve d - 00:00: 00 2020-08-27 00:00:00 2020-08-27 11:19:26 [facility] Screening for viral disease Screening for viral disease Disease Resolve d 08-23 00:00: 2020-08-27 00:00:00 2020-08-27 11:19:28 [facility] Headache Headache Disease Resolve d 04-01 00:00: 00 2020-08-27 00:00:00 2020-08-27 11:19:23 [facility] History of ventriculo peritoneal shunting History of ventriculo peritoneal shunting Disease Resolve d 2017-12 00:00: 00 2020-08-27 00:00:00 2020-08-27 11:19:17 [facility] Family history of diabetes mellitus Family history of diabetes mellitus Disease Resolve d 2017-12 00:00: 00 2020-08-27 00:00:00 2020-08-27 11:19:19 [facility] Varicella (disorder) Varicella (disorder) Resolved 04/08/1999 Problem 08/11/2020 [facility] [place] Problem Resolve d 09 00:00: 00 2020-08-11 21:01:09 2020-08-11 21:01:09 Marcelino Cervantes (spontaneo us vaginal delivery) (spontaneo us vaginal delivery) Disease Resolve d 2018-12 00:00: 00 2019-11-30 00:00:00 2019-11-30 15:45:49 [facility] Single liveborn Single liveborn Disease Resolve d 2018-12 00:00: 00 2019-11-30 00:00:00 2019-11-30 15:45:45 [facility] Single liveborn infant Single liveborn Disease Resolve d 2018-12 00:00: 00 2019-11-30 00:00:00 2019-11-30 15:45:45 [facility] Oligohydra mnios Oligohydra mnios Disease Resolve d 2018-12 2-06 00:00: 00 2019-11-30 00:00:00 2019-11-30 15:45:44 [facility] Hypothyroi dism affecting in third trimester Hypothyroi dism affecting in third trimester Disease Resolve d 2018-12 0-09 00:00: 00 2019-11-30 00:00:00 2019-11-30 15:45:41 [facility] Supervisio n of high-risk Supervisio n of high-risk Disease Resolve d -19 00:00: 00 2019-11-30 00:00:00 2019-11-30 15:45:48 [facility] Hypothyroi dism affecting Hypothyroi dism affecting Disease Resolve d 2017-12- 00:00: 00 2019-10-25 00:00:00 2019-10-25 16:01:34 [facility] Acquired acanthosis nigricans Acquired acanthosis nigricans Disease Resolve d -15 00:00: 00 2019-10-25 00:00:00 2019-10-25 16:01:25 [facility] with inconclusi ve viability, single or unspecifie d fetus with inconclusi ve viability, single or unspecifie d fetus Disease Resolve d 2017-12- 00:00: 00 2019-03-19 00:00:00 2019-03-19 15:00:51 [facility] with inconclusi ve viability, single or unspecifie d fetus with inconclusi ve viability, single or unspecifie d fetus Disease Resolve d 2017-12 00:00: 00 2019-03-19 00:00:00 2019-03-19 15:00:51 [facility] Elevated blood pressure reading without diagnosis of hypertensi on Elevated blood pressure reading without diagnosis of hypertensi on Disease Resolve d 2015-12 2-16 00:00: 00 2019-03-19 00:00:00 2019-03-19 15:01:39 [facility] Primary stabbing headache Primary stabbing headache Disease Resolve d 01-25 00:00: 00 2018-11-10 00:00:00 2018-11-10 15:13:15 [facility] care and examinatio n of lactating mother care and examinatio n of lactating mother Disease Resolve d 2015-12 00:00: 00 2018-11-10 00:00:00 2018-11-10 15:12:01 [facility] Second degree perineal laceration Second degree perineal laceration Disease Resolve d 2015-12 00:00: 00 2018-11-10 00:00:00 2018-11-10 15:12:10 [facility] Obesity, Class I, BMI 30-34.9 Obesity, Class I, BMI 30-34.9 Disease Resolve d 9-17 00:00: 00 2018-11-10 00:00:00 2018-11-10 15:13:22 [facility] 39 weeks gestation of 39 weeks gestation of Disease Resolve d 2015-12 00:00: 00 2016-11-15 00:00:00 2016-11-15 10:43:07 [facility] Asthma affecting , antepartum Asthma affecting , antepartum Disease Resolve d 2015-12 0- 00:00: 00 2016-11-15 00:00:00 2022-06-16 00:42:29 [facility] Trauma left toe, initial encounter Trauma left toe, initial encounter Disease Resolve d 2015-12 0-03 00:00: 00 2016-11-15 00:00:00 2016-11-15 10:43:09 [facility] Nervous system disease complicati ng in second trimester Nervous system disease complicati ng in second trimester Disease Resolve d 06-20 00:00: 00 2016-11-15 00:00:00 2016-11-15 10:43:12 [facility] Hypothyroi dism affecting Hypothyroi dism affecting Disease Resolve d 06-20 00:00: 00 2016-11-15 00:00:00 2016-11-15 10:43:11 [facility] History of Past Illness Condition Name Condition Details Condition Category Status Onset Date Resolution Date Last Treatment Date Treating Clinician Comments Source Headache Headache 08/09/2020 08/11/2020 [facility] [place] Problem 9-09 17:00: 00 2020-08-11 21:01:09 2020-08-11 21:01:09 Marcelino Cervantes Weakness Weakness 08/09/2020 08/11/2020 [place] Problem 9-09 17:00: 00 2020-08-11 21:01:09 2020-08-11 21:01:09 Marcelino Cervantes Other muscle spasm Other muscle spasm 08/09/2020 0 [facility] [place] Problem 9-09 17:00: 00 2020-08-11 21:01:09 2020-08-11 [...] drop and pt to pass out [facility] Metoclop ramide Propensi ty to adverse reaction s Active Nausea and/or Vomiting 6 00:00: 00 [facility] FENTANYL DRUG INGREDI Active Other-Cmnt 6 00:00: 00 [facility] METOCLOP RAMIDE DRUG INGREDI Active N/V 6 00:00: 00 [facility] Ketorola c Trometha mine Propensi ty to adverse reaction s Active Other - See comments 2018-12 00:00: 00 States worsened headache "made my whole head go on fire" [facility] KETOROLA C TROMETHA MINE DRUG INGREDI Active Other-Cmnt 2018-12 0 00:00: 00 [facility] Morphine Propensi ty to adverse reaction s Active Palpitations 08-17 00:00: 00 [facility] MORPHINE DRUG INGREDI Active Palpitations 08-17 00:00: 00 [facility] Bromphen iramine- Pseudoep h-Dm Drug Intolera nce Active Swelling 01-15 00:00: 00 [facility] Sulfa (Sulfona mide Antibiot ics) Propensi ty to adverse reaction s to drug Active Rash 01-15 00:00: 00 [facility] BROMPHEN IRAMINE- PSEUDOEP H-DM DRUG Active Swelling 01-15 00:00: 00 [facility] SULFA (SULFONA MIDE ANTIBIOT ICS) Drug Class Active Rash 01-15 00:00: 00 [facility] No Known Medicati on Allergie s No Known Medicati on Allergie s Active Memoria taisha Cervantes morphine drug allergy Active [facility] sulfa drug allergy Active [facility] Family History Family Member Diagnosis Comments Start Date Stop Date Sourc e Unknown Family Member Family history of Calcium kidney stones Other [facility] Grandparent Family history of malignant neoplasm [facility] Grandmother Family history of hyperthyroidism [facility] Grandmother Family history of essential hypertension [facility] Grandmother Family history of joaquina ng cancer [facility] cousin Family history [...] Date Quantity Comments Source [facility] Alcoholic beverage intake 2025-03-07 00:00:00 2025-03-07 00:00:00 Ex-drinker (finding) [facility] History of Social function 2024-07-08 00:00:00 2024-07-08 00:00:00 [facility] Tobacco use and exposure 2023-10-06 00:00:00 2023-10-06 00:00:00 Smokeless tobacco non-user [facility] Alcohol intake 2023-10-06 00:00:00 2023-10-06 00:00:00 Ex-drinker (finding) [facility] Exposure to SARS-CoV-2 (event) 2023-03-16 00:00:00 2023-03-26 10:15:00 Not sure [facility] Sex Assigned At 1995 00:00:00 1995 00:00:00 [facility] Smoking Status Start Date Stop Date Source Tobacco smoking consumption unknown [facility] Never smoked tobacco [facility] Medications Ordered Medication Name Filled Medication Name Start Date Stop Date Current Medication? Ordering Clinician Indication Dosage Frequency Signature (SIG) Comments Components Source levothyroxi ne 150 mcg tablet 04-04 00:00: 00 Yes [id number] 150ug Take 1 tablet by mouth every morning. [facility] ergocalcife rol, vitamin D2, (VITAMIN D ORAL) 03-07 15:23: 53 Yes Take by mouth. [facility] levothyroxi ne 150 mcg tablet 2-25 00:00: 00 04-04 00:00 :00 No [id number] 150ug Take 1 tablet by mouth every morning. [facility] amoxicillin 875 mg tablet 2-17 00:00: 00 01-28 05:59 :00 No [id number] 875mg Take 1 tablet by mouth in the morning and 1 tablet in the evening. Do all this for 10 days. [facility] metroNIDAZO LE 500 mg tablet 2-15 00:00: 00 03-07 00:00 :00 No [id number] 500mg Take 1 tablet by mouth every 12 (twelve) hours. [facility] fluconazole (DIFLUCAN) 150 mg tablet 30 00:00: 00 12-31 05:59 :00 No 150mg Take 1 tablet by mouth once now for 1 dose. [facility] doxycycline hyclate 100 mg tablet 12-27 00:00: 00 01-04 05:59 :00 No [id number] 100mg Take 1 tablet by mouth in the morning and 1 tablet in the evening. Do all this for 7 days. [facility] metroNIDAZO LE 500 mg tablet 12-25 00:00: 00 01-15 00:00 :00 No [id number] 500mg Take 1 tablet by mouth every 12 (twelve) hours. [facility] azithromyci n (ZITHROMAX Z-SILVIANO) 250 mg tablet 07-08 00:00: 00 03-07 00:00 :00 No [id number] Take 2 tabs on Day 1 and then 1 tab daily [facility] diclofenac 75 mg EC tablet 07-05 00:00: 00 Yes [id number] 75mg Take 1 tablet by mouth in the morning and 1 tablet in the evening. Take with meals. [facility] metroNIDAZO LE (FLAGYL) 500 mg tablet 07-05 00:00: 00 07-11 04:59 :00 No [id number] 500mg Take 1 tablet by mouth every 8 (eight) hours for 5 days. [facility] doxycycline hyclate 100 mg capsule 06-02 00:00: 00 03-07 00:00 :00 No TAKE ONE CAPSULE TWICE DAILY WITH FOOD. WAIT AT LEAST 2 HOURS BEFORE LYING DOWN [facility] iopamidol (ISOVUE 370-500 mL) injection 100 mL 05-21 05:00: 00 05-21 05:00 :00 No [id number] 100mL 100 mL, Intravenou s, ONCE, 1 dose, On Fri05/21/24 at 0000, Routine [facility] ESTARYLLA 0.25-35 mg-mcg per tablet 05-06 00:00: 00 03-07 00:00 :00 No 1{tbl} Take 1 tablet by mouth in the morning. [facility] ibuprofen (IBU) tablet 800 mg 04-24 17:30: 00 04-24 16:41 :00 No [id number] 800mg 800 mg, Oral, ONCE, 1 dose, On 04/24/24 at 1230, Routine [facility] acetaminoph en (TYLENOL) tablet 975 mg 04-24 17:30: 00 04-24 16:42 :00 No [id number] 975mg 975 mg, Oral, ONCE, 1 dose, On 04/24/24 at 1230, Routine [facility] ferrous sulfate (IRON) 325 mg (65 mg iron) tablet 04-13 00:00: 00 Yes 325mg Take 1 tablet by mouth in the morning and 1 tablet in the evening. [facility] levothyroxi ne 150 mcg tablet 04-05 00:00: 00 01-25 00:00 :00 No [id number] 150ug Take 1 tablet by mouth every morning. [facility] levothyroxi ne 150 mcg tablet 2022-12 00:00: 00 04-05 00:00 :00 No Take one tablet daily except Friday [facility] Levothyroxi ne 150 mcg capsule 2022-12 00:00: 00 Yes Take every day except friday [facility] amoxicillin 500 mg tablet 2022-12 00:00: 00 05-18 00:00 :00 No [id number] 1000mg Take 2 tablets by mouth in the morning. [facility] Levothyroxi ne 150 mcg capsule 2022-12 14:49: 16 10-14 00:00 :00 No .15mg Take 1 capsule by mouth in the morning. [facility] Levothyroxi ne 150 mcg capsule 2022-12 00:00: 00 11-05 00:00 :00 No Take every day except friday [facility] Levothyroxi ne 150 mcg capsule 2022-12 14:04: 28 Yes .15mg Take 1 capsule by mouth in the morning. [facility] TAKE 1 CAPSULE BY MOUTH EVERY 12 HOURS FOR 7 DAYS 05-06 00:00: 00 Yes Dinesh Chen LEVOTHYROXI N 150MCG 05-06 00:00: 00 Yes [id number] Dinesh Chen LEVOTHYROXI N 150MCG 04-05 00:00: 00 Yes [id number] Dinesh Chen TAKE 1 TABLET EVERY MORNING. [...] 02-27 00:00: 00 10-06 00:00 :00 No [id number] 100mg Take 1 capsule by mouth in the morning and 1 capsule in the evening. [facility] phenazopyri dine 200 mg tablet 02-27 00:00: 00 10-06 00:00 :00 No [id number] 200mg Take 1 tablet by mouth in the morning and 1 tablet at noon and 1 tablet in the evening. Take after meals. [facility] TAKE 2 CAPSULES BY MOUTH EVERY MORNING FOR 10 DAYS 2021-12 00:00: 00 Yes Dinesh Chen OSELTAMIVIR 75MG 2021-12 00:00: 00 Yes Dinesh Chen amoxicillin 500 mg tablet 2021-12 00:00: 00 11-29 05:59 :00 No [id number] 1000mg Take 2 tablets by mouth in the morning for 10 days. [facility] oseltamivir (TAMIFLU) 75 mg capsule 2021-12 00:00: 00 11-24 05:59 :00 No [id number] 75mg Take 1 capsule by mouth in the morning and 1 capsule in the evening. Do all this for 5 days. [facility] LEVOTHYROXI N 150MCG 2021-12 00:00: 00 04-11 00:00 :00 No Dinesh Karel Chen Dose Unknown 2021-12 00:00: 00 Yes Dinesh Karel Chen HYDROCODONE BITARTRATE/ AC 5-325MG TAB 2021-12 [...] MARY LEVOTHYROXI NE SODIUM 175MCG TAB 2021-12 00:00: 00 No TAKE 1 TABLET BY MOUTH EVERY DAY 2021-12 00:00: 00 No Dose Unknown 2021-12 00:00: 00 No PREDNISONE 20MG TAB 2021-12 00:00: 00 No MIRENA SYSTEM IUD 2021-12 2 00:00: 00 No HYDROCODONE BITARTRATE/ AC 5-325MG TAB 2021-12 2- 00:00: 00 No Dose Unknown 2021-12 00:00: 00 No Dose Unknown 2022-1 2-15 00:00: 00 No Dose Unknown 2021-12 2-15 00:00: 00 No Dose Unknown 2021-12 215 00:00: 00 No Dose Unknown 2021-12 215 00:00: 00 No FAMOTIDINE 20MG TAB 2021-12 2-15 00:00: 00 No INSERT 1 SUPPOSITORY RECTALLY EVERY 4 TO 6 HOURS NEEDED. 2021-12 2- 00:00: 00 04-11 00:00 :00 No Dinesh Chen TWICE DAILY BY MOUTH 2021-12 2- 00:00: 00 04-11 00:00 :00 No Dinesh Chen TAKE 1 TABLET EVERY MORNING. 2021-12 2 00:00: 00 04-11 00:00 :00 No Dinesh Chen TAKE 1 TABLET TWICE DAILY UNTIL FINISHED. 2021-12 2 00:00: 00 04-11 00:00 :00 No Dinesh Chen AMOXICILLIN /CLAVULANAT E P 875-125 TAB 2021-12 2 00:00: 00 04-11 00:00 :00 No Dinesh Chen MARY LEVOTHYROXI NE SODIUM 175MCG TAB 2021-12 2 00:00: 00 04-11 00:00 :00 No Dinesh Chen TAKE 1 TABLET BY MOUTH EVERY DAY 2021-12 2 00:00: 00 04-11 00:00 :00 No Dinesh Chen PREDNISONE 20MG TAB 2021-12 2 00:00: 00 04-11 00:00 :00 No Dinesh Chen MIRENA SYSTEM IUD 2021-12 2-15 00:00: 00 04-11 00:00 :00 No Dinesh Chen Dose Unknown 2021-12 215 00:00: 00 04-11 00:00 :00 No Dinesh Chen Dose Unknown 2021-12 215 00:00: 00 04-11 00:00 :00 No Dinesh Chen LEVOTHYROXI N 150MCG 2021-12 1-11 00:00: 00 04-11 00:00 :00 No [id number] Dinesh Chen TAKE 1 TABLET BY MOUTH EVERY DAY IN THE MORNING 08-23 00:00: 00 No Dose Unknown 08-23 00:00: 00 No TAKE 1 TABLET BY MOUTH EVERY DAY IN THE MORNING 08-23 00:00: 00 04-11 00:00 :00 No Dinesh Chen Dose Unknown 07-24 00:00: 00 Yes Dinesh Chen METRONIDAZO LE 500MG 07-24 00:00: 00 Yes [id number] Dinesh Chen Dose Unknown 07-24 00:00: 00 [...] 0 8-09 00:00: 00 No 100 &lt 2-0 8-06 00:00: 00 Yes Dinesh [...] TAKE 1 TABLET BY MOUTH EVERY DAY 0 -14 00:00: 00 Yes 150 Dinesh Chen &lt 2021-0 06-13 00:00: 00 Yes Dinesh Chen &lt 2-0 06-13 00:00: 00 Yes 100 Dinesh Chen TAKE [...] 06-13 00:00: 00 No 150 &lt 2021-0 06-13 00:00: 00 No &lt 2021-0 06-13 00:00: 00 No 100 TAKE 1 TABLET BY MOUTH TWICE A DAY 2021-0 06-13 00:00: 00 No 20 &lt 2021-0 06-13 00:00: 00 No &lt 2-0 06-13 00:00: 00 No 20 Dose Unknown 0 06-13 00:00: 00 No INHALE 2 PUFFS EVERY 6 (SIX) HOURS NEEDED FOR WHEEZING, SHORTNESS OF BREATH OR CHEST TIGHTNESS. 0 06-13 00:00: 00 No TAKE 1 TABLET BY MOUTH EVERY DAY 2021-0 06-13 00:00: 00 No 150 &lt 2021-0 06-13 00:00: 00 No &lt 2-0 06-13 00:00: 00 No 100 TAKE 1 TABLET BY MOUTH TWICE A DAY 2021-0 06-13 00:00: 00 No 20 &lt 2-0 06-13 00:00: 00 No &lt 2-0 06-13 00:00: 00 No 20 Dose Unknown 0 06-13 00:00: 00 No &lt 2-0 06-12 00:00: 00 Yes Dinesh Chen &lt 2021-0 06-12 00:00: 00 No &lt 2-0 06-12 00:00: 00 No MARY LEVOTHYROXI NE SODIUM 175MCG 06-11 00:00: 00 Yes [id number] Dinesh Chen TAKE 1 TABLET BY MOUTH [...] 10 DAYS 06-04 00:00: 00 No &lt 05-30 00:00: 00 Yes Dinesh Chen &lt 05-30 00:00: 00 No &lt 05-30 00:00: 00 No butalbital- acetaminoph en-caff 50-325-40 mg tablet 05-26 00:00: 10-06 00:00 :00 No [id number] 1{tbl} Take 1 tablet by mouth every 4 (four) hours as needed (headache) . [facility] docusate 100 mg capsule 05-26 00:00: 00 10-06 00:00 :00 No [id number] 100mg Take 1 capsule by mouth 2 (two) times daily. [facility] famotidine 20 mg tablet 05-26 00:00: 00 10-06 00:00 :00 No [id number] 20mg Take 1 tablet by mouth 2 (two) times daily. [facility] acetaminoph en 325 mg tablet 05-26 00:00: 05-27 04:59 :00 No [id number] 325mg Take 1 tablet by mouth every 6 (six) hours as needed for Pain (scale 1-3). [facility] HYDROcodone -acetaminop hen 5-325 mg tablet 05-26 00:00: 00 06-03 04:59 :00 No [id number] 1{tbl} Take 1 tablet by mouth every 6 (six) hours as needed for Pain (scale 7-10) for up to 7 days. Indication s: acute pain [facility] Dose Unknown 04-21 00:00: 00 [...] 04-02 00:00: 00 No 1mg Dose Unknown 09 00:00: 00 Yes Dinesh F Gustavo Dose Unknown 2022-0 4-09 00:00: 00 Yes Dinesh Chen Dose Unknown 2022-0 4-09 00:00: 00 No Dose Unknown 2022-0 4-09 00:00: 00 No Dose Unknown 2022-0 4-09 00:00: 00 No Dose Unknown 2022-0 4-09 00:00: 00 No Dose Unknown 2022-0 4-08 00:00: 00 Yes Dinesh Chen Dose Unknown 2022-0 4-08 00:00: 00 Yes Dinesh Vinson Gustavo Dose Unknown 2022-0 4-08 00:00: 00 No [...] (7 yrs) 52 mg intrauterin e device 2021-0 3-07 00:00: 00 No 1(7 yrs) 52 mg albuterol 90 mcg/actuati on inhaler 2-0 2-20 00:00: 00 202 11- 00:00 :00 No [id number] 2{puff} Inhale 2 Puffs every 6 (six) hours as needed for Wheezing, Shortness of Breath or Chest tightness. [facility] Dose Unknown 2020-12 00:00: 00 [...] 2020-12 00:00: 00 10-06 00:00 :00 No [id number] 250mg Take 1 tablet by mouth daily. [facility] predniSONE 20 mg tablet 2020-12 00:00: 00 10-06 00:00 :00 No [id number] TAKE ONE TABLET BY MOUTH DAILY [facility] moxifloxaci n 0.5 % ophthalmic drops 2020-12 00:00: 00 10-06 00:00 :00 No [id number] 1[drp] Place 1 Drop in right eye 3 (three) times daily. [facility] acetaZOLAMI DE 250 mg tablet 2020-12 0-22 00:00: 00 10-06 00:00 :00 No 750mg Take 3 tablets by mouth in the morning and 3 tablets in the evening. [facility] levothyroxi ne 200 mcg tablet 2020-12 0-15 00:00: 00 10-06 00:00 :00 No [id number] 200ug Take 1 tablet by mouth every morning. [facility] acetaZOLAMI DE 250 mg tablet 05-03 00:00: 00 10-06 00:00 :00 No [id number] 500mg Take 2 tablets by mouth 2 (two) times daily. [facility] Cyclobenzap rine hydrochlori de 10 [...] Status Comments Source TDAP 2021-02-07 00:00:00 Completed [facility] TDAP 2021-02-07 00:00:00 Completed [facility] TDAP 2021-02-07 00:00:00 Completed [facility] TDAP 2021-02-07 00:00:00 Completed [facility] TDAP 2021-02-07 00:00:00 Completed [facility] TDAP 2021-02-07 00:00:00 Completed [facility] TDAP 2021-02-07 00:00:00 Completed [facility] TDAP 2021-02-07 00:00:00 Completed [facility] TDAP 2021-02-07 00:00:00 Completed [facility] TDAP 2021-02-07 00:00:00 Completed [facility] TDAP 2021-02-07 00:00:00 Completed [facility] TDAP 2021-02-07 00:00:00 Completed [facility] TDAP 2021-02-07 00:00:00 Completed [facility] TDAP 2021-02-07 00:00:00 Completed [facility] Tdap Tdap 2021-02-07 00:00:00 Completed Dinesh Chen TDAP (ADACEL) VACCINE 2019-08-26 00:00:00 Completed [facility] Influenza Virus Vaccine Quad .5 mL IM 6+ MO 2019-08-26 00:00:00 Completed [facility] TDAP (ADACEL) VACCINE 2019-08-26 00:00:00 Completed [facility] Influenza Virus Vaccine Quad .5 mL IM 6+ MO 2019-08-26 00:00:00 Completed [facility] TDAP (ADACEL) VACCINE 2019-08-26 00:00:00 Completed [facility] Influenza Virus Vaccine Quad .5 mL IM 6+ MO 2019-08-26 00:00:00 Completed [facility] TDAP (ADACEL) VACCINE 2019-08-26 00:00:00 Completed [facility] Influenza Virus Vaccine Quad .5 mL IM 6+ MO 2019-08-26 00:00:00 Completed [facility] TDAP (ADACEL) VACCINE 2019-08-26 00:00:00 Completed [facility] Influenza Virus Vaccine Quad .5 mL IM 6+ MO 2019-08-26 00:00:[address] [facility] TDAP (ADACEL) VACCINE 2019-08-26 00:00:00 Completed [facility] Influenza Virus Vaccine Quad .5 mL IM 6+ MO 2019-08-26 00:00:00 Completed [facility] TDAP (ADACEL) VACCINE 2019-08-26 00:00:00 Completed [facility] Influenza Virus Vaccine Quad .5 mL IM 6+ MO 2019-08-26 00:00:00 Completed [facility] TDAP (ADACEL) VACCINE 2019-08-26 00:00:00 Completed [facility] Influenza Virus Vaccine Quad .5 mL IM 6+ MO 2019-08-26 00:00:00 Completed [facility] TDAP (ADACEL) VACCINE 2019-08-26 00:00:00 Completed [facility] Influenza Virus Vaccine Quad .5 mL IM 6+ MO 2019-08-26 00:00:00 Completed [facility] TDAP (ADACEL) VACCINE 2019-08-26 00:00:00 Completed [facility] Influenza Virus Vaccine Quad .5 mL IM 6+ MO 2019-08-26 00:00:00 Completed [facility] TDAP (ADACEL) VACCINE 2019-08-26 00:00:00 Completed [facility] Influenza Virus Vaccine Quad .5 mL IM 6+ MO 2019-08-26 00:00:00 Completed [facility] TDAP (ADACEL) VACCINE 2019-08-26 00:00:00 Completed [facility] Influenza Virus Vaccine Quad .5 mL IM 6+ MO 2019-08-26 00:00:00 Completed [facility] TDAP (ADACEL) VACCINE 2019-08-26 00:00:00 Completed [facility] Influenza Virus Vaccine Quad .5 mL IM 6+ MO 2019-08-26 00:00:00 Completed [facility] TDAP (ADACEL) VACCINE 2019-08-26 00:00:00 Completed [facility] Influenza Virus Vaccine Quad .5 mL IM 6+ MO (FLUZONE/FLULAVAL/FL UARIX) 2019-08-26 00:00:00 Completed Influenza Virus Vaccine Quad IM 3+ YRS 2016-09-23 00:00:00 Completed [facility] Influenza Virus Vaccine Quad IM 3+ YRS 2016-09-23 00:00:00 Completed [facility] Influenza Virus Vaccine Quad IM 3+ YRS 2016-09-23 00:00:00 Completed [facility] Influenza Virus Vaccine Quad IM 3+ YRS 2016-09-23 00:00:00 Completed [facility] Influenza Virus Vaccine Quad IM 3+ YRS 2016-09-23 00:00:00 Completed [facility] Influenza Virus Vaccine Quad IM 3+ YRS 2016-09-23 00:00:00 Completed [facility] Influenza Virus Vaccine Quad IM 3+ YRS 2016-09-23 00:00:00 Completed [facility] Influenza Virus Vaccine Quad IM 3+ YRS 2016-09-23 00:00:00 Completed [facility] Influenza Virus Vaccine Quad IM 3+ YRS 2016-09-23 00:00:00 Completed [facility] Influenza Virus Vaccine Quad IM 3+ YRS 2016-09-23 00:00:00 Completed [facility] Influenza Virus Vaccine Quad IM 3+ YRS 2016-09-23 00:00:00 Completed [facility] Influenza Virus Vaccine Quad IM 3+ YRS 2016-09-23 00:00:00 Completed [facility] Influenza Virus Vaccine Quad IM 3+ YRS 2016-09-23 00:00:00 Completed [facility] Influenza Virus Vaccine Quad IM 3+ YRS 2016-09-23 00:00:00 Completed [facility] Meningococcal Polysaccharide (groups A, C, Y and W-135) conjugate vaccine (MCV4P) 2009-05-09 00:00:00 Completed [facility] Meningococcal Polysaccharide (groups A, C, Y and W-135) conjugate vaccine (MCV4P) 2009-05-09 00:00:00 Completed [facility] Meningococcal Polysaccharide (groups A, C, Y and W-135) conjugate vaccine (MCV4P) 2009-05-09 00:00:00 Completed [facility] Meningococcal Polysaccharide (groups A, C, Y and W-135) conjugate vaccine (MCV4P) 2009-05-09 00:00:00 Completed [facility] Meningococcal Polysaccharide (groups A, C, Y and W-135) conjugate vaccine (MCV4P) 2009-05-09 00:00:00 Completed [facility] Meningococcal Polysaccharide (groups A, C, Y and W-135) conjugate vaccine (MCV4P) 2009-05-09 00:00:00 Completed [facility] Meningococcal Polysaccharide (groups A, C, Y and W-135) conjugate vaccine (MCV4P) 2009-05-09 00:00:00 Completed [facility] Meningococcal Polysaccharide (groups A, C, Y and W-135) conjugate vaccine (MCV4P) 2009-05-09 00:00:00 Completed [facility] Meningococcal Polysaccharide (groups A, C, Y and W-135) conjugate vaccine (MCV4P) 2009-05-09 00:00:00 Completed [facility] Meningococcal Polysaccharide (groups A, C, Y and W-135) conjugate vaccine (MCV4P) 2009-05-09 00:00:00 Completed [facility] Meningococcal Polysaccharide (groups A, C, Y and W-135) conjugate vaccine (MCV4P) 2009-05-09 00:00:00 Completed [facility] Meningococcal Polysaccharide (groups A, C, Y and W-135) conjugate vaccine (MCV4P) 2009-05-09 00:00:00 Completed [facility] Meningococcal Polysaccharide (groups A, C, Y and W-135) conjugate vaccine (MCV4P) 2009-05-09 00:00:00 Completed [facility] Meningococcal Polysaccharide (groups A, C, Y and W-135) conjugate vaccine (MCV4P) 2009-05-09 00:00:00 Completed TDAP 2009-05-09 00:00:00 Completed [facility] meningococcal MCV4P meningococcal MCV4P 00:00:00 Completed Dinesh Chen Tdap Tdap 2009-05-09 00:00:00 Completed Dinesh Chen TDAP 2001-07-01 00:00:00 Completed [facility] MMR 2001-07-01 00:00:00 Completed [facility] Polio (IPV/OPV) 2001-07-01 00:00:00 Completed [facility] TDAP 2001-07-01 00:00:00 Completed [facility] MMR 2001-07-01 00:00:00 Completed [facility] Polio (IPV/OPV) 2001-07-01 00:00:00 Completed [facility] TDAP 2001-07-01 00:00:00 Completed [facility] MMR 2001-07-01 00:00:00 Completed [facility] Polio (IPV/OPV) 2001-07-01 00:00:00 Completed [facility] TDAP 2001-07-01 00:00:00 Completed [facility] MMR 2001-07-01 00:00:00 Completed [facility] Polio (IPV/OPV) 2001-07-01 00:00:00 Completed [facility] TDAP 2001-07-01 00:00:00 Completed [facility] MMR 2001-07-01 00:00:00 Completed [facility] Polio (IPV/OPV) 2001-07-01 00:00:00 Completed [facility] TDAP 2001-07-01 00:00:00 Completed [facility] MMR 2001-07-01 00:00:00 Completed [facility] Polio (IPV/OPV) 2001-07-01 00:00:00 Completed [facility] TDAP 2001-07-01 00:00:00 Completed [facility] MMR 2001-07-01 00:00:00 Completed [facility] Polio (IPV/OPV) 2001-07-01 00:00:00 Completed [facility] TDAP 2001-07-01 00:00:00 Completed [facility] MMR 2001-07-01 00:00:00 Completed [facility] Polio (IPV/OPV) 2001-07-01 00:00:00 Completed [facility] TDAP 2001-07-01 00:00:00 Completed [facility] MMR 2001-07-01 00:00:00 Completed [facility] Polio (IPV/OPV) 2001-07-01 00:00:00 Completed [facility] TDAP 2001-07-01 00:00:00 Completed [facility] MMR 2001-07-01 00:00:00 Completed [facility] Polio (IPV/OPV) 2001-07-01 00:00:00 Completed [facility] TDAP 2001-07-01 00:00:00 Completed [facility] MMR 2001-07-01 00:00:00 Completed [facility] Polio (IPV/OPV) 2001-07-01 00:00:00 Completed [facility] TDAP 2001-07-01 00:00:00 Completed [facility] MMR 2001-07-01 00:00:00 Completed [facility] Polio (IPV/OPV) 2001-07-01 00:00:00 Completed [facility] TDAP 2001-07-01 00:00:00 Completed [facility] MMR 2001-07-01 00:00:00 Completed [facility] Polio (IPV/OPV) 2001-07-01 00:00:00 Completed [facility] TDAP 2001-07-01 00:00:00 Completed MMR 2001-07-01 00:00:00 Completed Polio (IPV/OPV) 2001-07-01 00:00:00 Completed DTaP, Unspecified Formulation 2001-07-01 00:00:00 Completed IPV 2001-07-01 00:00:00 Completed MMR MMR 2001-07-01 00:00:00 Completed Dinesh Chen IPV IPV 2001-07-01 00:00:00 Completed Dinesh Chen DTaP, unspecified formul DTaP, unspecified formul 2001-07-01 00:00:00 Completed Dinesh Chen Tdap Tdap 2001-07-01 00:00:00 Completed Dinesh Chen Varicella (varivax)(chicken pox) 1999-04-08 00:00:00 Completed [facility] Varicella (varivax)(chicken pox) 1999-04-08 00:00:00 Completed [facility] Varicella (varivax)(chicken pox) 1999-04-08 00:00:00 Completed [facility] Varicella (varivax)(chicken pox) 1999-04-08 00:00:00 Completed [facility] Varicella (varivax)(chicken pox) 1999-04-08 00:00:00 Completed [facility] Varicella (varivax)(chicken pox) 1999-04-08 00:00:00 Completed [facility] Varicella (varivax)(chicken pox) 1999-04-08 00:00:00 Completed [facility] Varicella (varivax)(chicken pox) 1999-04-08 00:00:00 Completed [facility] Varicella (varivax)(chicken pox) 1999-04-08 00:00:00 Completed [facility] Varicella (varivax)(chicken pox) 1999-04-08 00:00:00 Completed [facility] Varicella (varivax)(chicken pox) 1999-04-08 00:00:00 Completed [facility] Varicella (varivax)(chicken pox) 1999-04-08 00:00:00 Completed [facility] Varicella (varivax)(chicken pox) 1999-04-08 00:00:00 Completed [facility] Varicella (varivax)(chicken pox) 1999-04-08 00:00:00 Completed varicella varicella 1999-04-08 00:00:00 Completed Dinesh Chen TDAP 1998-06-14 00:00:00 Completed [facility] HIB 4 Dose Schedule 1998-06-14 00:00:00 Completed [facility] MMR 1998-06-14 00:00:00 Completed [facility] TDAP 1998-06-14 00:00:00 Completed [facility] HIB 4 Dose Schedule 1998-06-14 00:00:00 Completed [facility] MMR 1998-06-14 00:00:00 Completed [facility] TDAP 1998-06-14 00:00:00 Completed [facility] HIB 4 Dose Schedule 1998-06-14 00:00:00 Completed [facility] MMR 1998-06-14 00:00:00 Completed [facility] TDAP 1998-06-14 00:00:00 Completed [facility] HIB 4 Dose Schedule 1998-06-14 00:00:00 Completed [facility] MMR 1998-06-14 00:00:00 Completed [facility] TDAP 1998-06-14 00:00:00 Completed [facility] HIB 4 Dose Schedule 1998-06-14 00:00:00 Completed [facility] MMR 1998-06-14 00:00:00 Completed [facility] TDAP 1998-06-14 00:00:00 Completed [facility] HIB 4 Dose Schedule 1998-06-14 00:00:00 Completed [facility] MMR 1998-06-14 00:00:00 Completed [facility] TDAP 1998-06-14 00:00:00 Completed [facility] HIB 4 Dose Schedule 1998-06-14 00:00:00 Completed [facility] MMR 1998-06-14 00:00:00 Completed [facility] TDAP 1998-06-14 00:00:00 Completed [facility] HIB 4 Dose Schedule 1998-06-14 00:00:00 Completed [facility] MMR 1998-06-14 00:00:00 Completed [facility] TDAP 1998-06-14 00:00:00 Completed [facility] HIB 4 Dose Schedule 1998-06-14 00:00:00 Completed [facility] MMR 1998-06-14 00:00:00 Completed [facility] TDAP 1998-06-14 00:00:00 Completed [facility] HIB 4 Dose Schedule 1998-06-14 00:00:00 Completed [facility] MMR 1998-06-14 00:00:00 Completed [facility] TDAP 1998-06-14 00:00:00 Completed [facility] HIB 4 Dose Schedule 1998-06-14 00:00:00 Completed [facility] MMR 1998-06-14 00:00:00 Completed [facility] TDAP 1998-06-14 00:00:00 Completed [facility] HIB 4 Dose Schedule 1998-06-14 00:00:00 Completed [facility] MMR 1998-06-14 00:00:00 Completed [facility] TDAP 1998-06-14 00:00:00 Completed [facility] HIB 4 Dose Schedule 1998-06-14 00:00:00 Completed [facility] MMR 1998-06-14 00:00:00 Completed [facility] TDAP 1998-06-14 00:00:00 Completed HIB 4 Dose Schedule 1998-06-14 00:00:00 Completed MMR 1998-06-14 00:00:00 Completed DTaP, Unspecified Formulation 1998-06-14 00:00:00 Completed Hib-HbOC 1998-06-14 00:00:00 Completed Hib (HbOC) Hib (HbOC) 1998-06-14 00:00:00 Completed Dinesh Chen MMR MMR 1998-06-14 00:00:00 Completed Dinesh Chen DTaP, unspecified formul DTaP, unspecified formul 1998-06-14 00:00:00 Completed Dinesh Karel Gustavo Tdap Tdap 1998-06-14 00:00:00 Completed Dinesh Karel Chen TDAP 1998-03-29 00:00:00 Completed [facility] HIB 4 Dose Schedule 1998-03-29 00:00:00 Completed [facility] Hep B, Adol or Pedi Dosage 1998-03-29 00:00:00 Completed [facility] Polio (IPV/OPV) 1998-03-29 00:00:00 Completed [facility] TDAP 1998-03-29 00:00:00 Completed [facility] HIB 4 Dose Schedule 1998-03-29 00:00:00 Completed [facility] Hep B, Adol or Pedi Dosage 1998-03-29 00:00:00 Completed [facility] Polio (IPV/OPV) 1998-03-29 00:00:00 Completed [facility] TDAP 1998-03-29 00:00:00 Completed [facility] HIB 4 Dose Schedule 1998-03-29 00:00:00 Completed [facility] Hep B, Adol or Pedi Dosage 1998-03-29 00:00:00 Completed [facility] Polio (IPV/OPV) 1998-03-29 00:00:00 Completed [facility] TDAP 1998-03-29 00:00:00 Completed [facility] HIB 4 Dose Schedule 1998-03-29 00:00:00 Completed [facility] Hep B, Adol or Pedi Dosage 1998-03-29 00:00:00 Completed [facility] Polio (IPV/OPV) 1998-03-29 00:00:00 Completed [facility] TDAP 1998-03-29 00:00:00 Completed [facility] HIB 4 Dose Schedule 1998-03-29 00:00:00 Completed [facility] Hep B, Adol or Pedi Dosage 1998-03-29 00:00:00 Completed [facility] Polio (IPV/OPV) 1998-03-29 00:00:00 Completed [facility] TDAP 1998-03-29 00:00:00 Completed [facility] HIB 4 Dose Schedule 1998-03-29 00:00:00 Completed [facility] Hep B, Adol or Pedi Dosage 1998-03-29 00:00:00 Completed [facility] Polio (IPV/OPV) 1998-03-29 00:00:00 Completed [facility] TDAP 1998-03-29 00:00:00 Completed [facility] HIB 4 Dose Schedule 1998-03-29 00:00:00 Completed [facility] Hep B, Adol or Pedi Dosage 1998-03-29 00:00:00 Completed [facility] Polio (IPV/OPV) 1998-03-29 00:00:00 Completed [facility] TDAP 1998-03-29 00:00:00 Completed [facility] HIB 4 Dose Schedule 1998-03-29 00:00:00 Completed [facility] Hep B, Adol or Pedi Dosage 1998-03-29 00:00:00 Completed [facility] Polio (IPV/OPV) 1998-03-29 00:00:00 Completed [facility] TDAP 1998-03-29 00:00:00 Completed [facility] HIB 4 Dose Schedule 1998-03-29 00:00:00 Completed [facility] Hep B, Adol or Pedi Dosage 1998-03-29 00:00:00 Completed [facility] Polio (IPV/OPV) 1998-03-29 00:00:00 Completed [facility] TDAP 1998-03-29 00:00:00 Completed [facility] HIB 4 Dose Schedule 1998-03-29 00:00:00 Completed [facility] Hep B, Adol or Pedi Dosage 1998-03-29 00:00:00 Completed [facility] Polio (IPV/OPV) 1998-03-29 00:00:00 Completed [facility] TDAP 1998-03-29 00:00:00 Completed [facility] HIB 4 Dose Schedule 1998-03-29 00:00:00 Completed [facility] Hep B, Adol or Pedi Dosage 1998-03-29 00:00:00 Completed [facility] Polio (IPV/OPV) 1998-03-29 00:00:00 Completed [facility] TDAP 1998-03-29 00:00:00 Completed [facility] HIB 4 Dose Schedule 1998-03-29 00:00:00 Completed [facility] Hep B, Adol or Pedi Dosage 1998-03-29 00:00:00 Completed [facility] Polio (IPV/OPV) 1998-03-29 00:00:00 Completed [facility] TDAP 1998-03-29 00:00:00 Completed [facility] HIB 4 Dose Schedule 1998-03-29 00:00:00 Completed [facility] Hep B, Adol or Pedi Dosage 1998-03-29 00:00:00 Completed [facility] Polio (IPV/OPV) 1998-03-29 00:00:00 Completed [facility] TDAP 1998-03-29 00:00:00 Completed HIB 4 Dose [...] Completed Dinesh Chen TDAP 1997 00:00:00 Completed [facility] HIB 4 Dose Schedule 1997 00:00:00 Completed [facility] Polio (IPV/OPV) 1997 00:00:00 Completed [facility] TDAP 1997 00:00:00 Completed [facility] HIB 4 Dose Schedule 1997 00:00:00 Completed [facility] Polio (IPV/OPV) 1997 00:00:00 Completed [facility] TDAP 1997 00:00:00 Completed [facility] HIB 4 Dose Schedule 1997 00:00:00 Completed [facility] Polio (IPV/OPV) 1997 00:00:00 Completed [facility] TDAP 1997 00:00:00 Completed [facility] HIB 4 Dose Schedule 1997 00:00:00 Completed [facility] Polio (IPV/OPV) 1997 00:00:00 Completed [facility] TDAP 1997 00:00:00 Completed [facility] HIB 4 Dose Schedule 1997 00:00:00 Completed [facility] Polio (IPV/OPV) 1997 00:00:00 Completed [facility] TDAP 1997 00:00:00 Completed [facility] HIB 4 Dose Schedule 1997 00:00:00 Completed [facility] Polio (IPV/OPV) 1997 00:00:00 Completed [facility] TDAP 1997 00:00:00 Completed [facility] HIB 4 Dose Schedule 1997 00:00:00 Completed [facility] Polio (IPV/OPV) 1997 00:00:00 Completed [facility] TDAP 1997 00:00:00 Completed [facility] HIB 4 Dose Schedule 1997 00:00:00 Completed [facility] Polio (IPV/OPV) 1997 00:00:00 Completed [facility] TDAP 1997 00:00:00 Completed [facility] HIB 4 Dose Schedule 1997 00:00:00 Completed [facility] Polio (IPV/OPV) 1997 00:00:00 Completed [facility] TDAP 1997 00:00:00 Completed [facility] HIB 4 Dose Schedule 1997 00:00:00 Completed [facility] Polio (IPV/OPV) 1997 00:00:00 Completed [facility] TDAP 1997 00:00:00 Completed [facility] HIB 4 Dose Schedule 1997 00:00:00 Completed [facility] Polio (IPV/OPV) 1997 00:00:00 Completed [facility] TDAP 1997 00:00:00 Completed [facility] HIB 4 Dose Schedule 1997 00:00:00 Completed [facility] Polio (IPV/OPV) 1997 00:00:00 Completed [facility] TDAP 1997 00:00:00 Completed [facility] HIB 4 Dose Schedule 1997 00:00:00 Completed [facility] Polio (IPV/OPV) 1997 00:00:00 Completed [facility] TDAP 1997 00:00:00 Completed HIB 4 Dose [...] Completed Dinesh Chen TDAP 1997 00:00:00 Completed [facility] HIB 4 Dose Schedule 1997 00:00:00 Completed [facility] Hep B, Adol or Pedi Dosage 1997 00:00:00 Completed [facility] Polio (IPV/OPV) 1997 00:00:00 Completed [facility] TDAP 1997 00:00:00 Completed [facility] HIB 4 Dose Schedule 1997 00:00:00 Completed [facility] Hep B, Adol or Pedi Dosage 1997 00:00:00 Completed [facility] Polio (IPV/OPV) 1997 00:00:00 Completed [facility] TDAP 1997 00:00:00 Completed [facility] HIB 4 Dose Schedule 1997 00:00:00 Completed [facility] Hep B, Adol or Pedi Dosage 1997 00:00:00 Completed [facility] Polio (IPV/OPV) 1997 00:00:00 Completed [facility] TDAP 1997 00:00:00 Completed [facility] HIB 4 Dose Schedule 1997 00:00:00 Completed [facility] Hep B, Adol or Pedi Dosage 1997 00:00:00 Completed [facility] Polio (IPV/OPV) 1997 00:00:00 Completed [facility] TDAP 1997 00:00:00 Completed [facility] HIB 4 Dose Schedule 1997 00:00:00 Completed [facility] Hep B, Adol or Pedi Dosage 1997 00:00:00 Completed [facility] Polio (IPV/OPV) 1997 00:00:00 Completed [facility] TDAP 1997 00:00:00 Completed [facility] HIB 4 Dose Schedule 1997 00:00:00 Completed [facility] Hep B, Adol or Pedi Dosage 1997 00:00:00 Completed [facility] Polio (IPV/OPV) 1997 00:00:00 Completed [facility] TDAP 1997 00:00:00 Completed [facility] HIB 4 Dose Schedule 1997 00:00:00 Completed [facility] Hep B, Adol or Pedi Dosage 1997 00:00:00 Completed [facility] Polio (IPV/OPV) 1997 00:00:00 Completed [facility] TDAP 1997 00:00:00 Completed [facility] HIB 4 Dose Schedule 1997 00:00:00 Completed [facility] Hep B, Adol or Pedi Dosage 1997 00:00:00 Completed [facility] Polio (IPV/OPV) 1997 00:00:00 Completed [facility] TDAP 1997 00:00:00 Completed [facility] HIB 4 Dose Schedule 1997 00:00:00 Completed [facility] Hep B, Adol or Pedi Dosage 1997 00:00:00 Completed [facility] Polio (IPV/OPV) 1997 00:00:00 Completed [facility] TDAP 1997 00:00:00 Completed [facility] HIB 4 Dose Schedule 1997 00:00:00 Completed [facility] Hep B, Adol or Pedi Dosage 1997 00:00:00 Completed [facility] Polio (IPV/OPV) 1997 00:00:00 Completed [facility] TDAP 1997 00:00:00 Completed [facility] HIB 4 Dose Schedule 1997 00:00:00 Completed [facility] Hep B, Adol or Pedi Dosage 1997 00:00:00 Completed [facility] Polio (IPV/OPV) 1997 00:00:00 Completed [facility] TDAP 1997 00:00:00 Completed [facility] HIB 4 Dose Schedule 1997 00:00:00 Completed [facility] Hep B, Adol or Pedi Dosage 1997 00:00:00 Completed [facility] Polio (IPV/OPV) 1997 00:00:00 Completed [facility] TDAP 1997 00:00:00 Completed [facility] HIB 4 Dose Schedule 1997 00:00:00 Completed [facility] Hep B, Adol or Pedi Dosage 1997 00:00:00 Completed [facility] Polio (IPV/OPV) 1997 00:00:00 Completed [facility] TDAP 1997 00:00:00 Completed [facility] HIB 4 Dose Schedule 1997 00:00:00 Completed [...] Adol or Pedi Dosage 1997 00:00:00 Completed [facility] Hep B, Adol or Pedi Dosage 1997 00:00:00 Completed [facility] Hep B, Adol or Pedi Dosage 1997 00:00:00 Completed [facility] Hep B, Adol or Pedi Dosage 1997 00:00:00 Completed [facility] Hep B, Adol or Pedi Dosage 1997 00:00:00 Completed [facility] Hep B, Adol or Pedi Dosage 1997 00:00:00 Completed [facility] Hep B, Adol or Pedi Dosage 1997 00:00:00 Completed [facility] Hep B, Adol or Pedi Dosage 1997 00:00:00 Completed [facility] Hep B, Adol or Pedi Dosage 1997 00:00:00 Completed [facility] Hep B, Adol or Pedi Dosage 1997 00:00:00 Completed [facility] Hep B, Adol or Pedi Dosage 1997 00:00:00 Completed [facility] Hep B, Adol or Pedi Dosage 1997 00:00:00 Completed [facility] Hep B, Adol or Pedi Dosage 1997 00:00:00 Completed [facility] Hep B, Adol or Pedi Dosage 1997 00:00:00 Completed Hep B, adolescent or ped Hep B, adolescent or ped 1997 00:00:00 Completed Dinesh Vinson Gustavo Influenza Virus Vaccine Quad IM 3+ YRS Unknown Completed [facility] TDAP (ADACEL) VACCINE Unknown Completed [facility] HIB 4 Dose Schedule Unknown Completed [facility] Hep B, Adol or Pedi Dosage Unknown Completed [facility] Meningococcal Polysaccharide (groups A, C, Y and W-135) conjugate vaccine (MCV4P) Unknown Completed [facility] MMR Unknown Completed [facility] Polio (IPV/OPV) Unknown Completed [facility] Varicella (varivax)(chicken pox) Unknown Completed [facility] Influenza Virus Vaccine Quad IM 3+ YRS Unknown Completed [facility] TDAP (ADACEL) VACCINE Unknown Completed [facility] HIB 4 Dose Schedule Unknown Completed [facility] Hep B, Adol or Pedi Dosage Unknown Completed [facility] Meningococcal Polysaccharide (groups A, C, Y and W-135) conjugate vaccine (MCV4P) Unknown Completed [facility] MMR Unknown Completed [facility] Polio (IPV/OPV) Unknown Completed [facility] Varicella (varivax)(chicken pox) Unknown Completed [facility] Influenza Virus Vaccine Quad IM 3+ YRS Unknown Completed [facility] TDAP (ADACEL) VACCINE Unknown Completed [facility] HIB 4 Dose Schedule Unknown Completed [facility] Hep B, Adol or Pedi Dosage Unknown Completed [facility] Meningococcal Polysaccharide (groups A, C, Y and W-135) conjugate vaccine (MCV4P) Unknown Completed [facility] MMR Unknown Completed [facility] Polio (IPV/OPV) Unknown Completed [facility] Varicella (varivax)(chicken pox) Unknown Completed [facility] Influenza Virus Vaccine Quad IM 3+ YRS Unknown Completed [facility] TDAP (ADACEL) VACCINE Unknown Completed [facility] HIB 4 Dose Schedule Unknown Completed [facility] Hep B, Adol or Pedi Dosage Unknown Completed [facility] Meningococcal Polysaccharide (groups A, C, Y and W-135) conjugate vaccine (MCV4P) Unknown Completed [facility] MMR Unknown Completed [facility] Polio (IPV/OPV) Unknown Completed [facility] Varicella (varivax)(chicken pox) Unknown Completed [facility] Influenza Virus Vaccine Quad IM 3+ YRS Unknown Completed [facility] TDAP (ADACEL) VACCINE Unknown Completed [facility] HIB 4 Dose Schedule Unknown Completed [facility] Hep B, Adol or Pedi Dosage Unknown Completed [facility] Meningococcal Polysaccharide (groups A, C, Y and W-135) conjugate vaccine (MCV4P) Unknown Completed [facility] MMR Unknown Completed [facility] Polio (IPV/OPV) Unknown Completed [facility] Varicella (varivax)(chicken pox) Unknown Completed [facility] Influenza Virus Vaccine Quad IM 3+ YRS Unknown Completed [facility] TDAP (ADACEL) VACCINE Unknown Completed [facility] HIB 4 Dose Schedule Unknown Completed [facility] Hep B, Adol or Pedi Dosage Unknown Completed [facility] Meningococcal Polysaccharide (groups A, C, Y and W-135) conjugate vaccine (MCV4P) Unknown Completed [facility] MMR Unknown Completed [facility] Polio (IPV/OPV) Unknown Completed [facility] Varicella (varivax)(chicken pox) Unknown Completed [facility] Influenza Virus Vaccine Quad IM 3+ YRS Unknown Completed [facility] TDAP (ADACEL) VACCINE Unknown Completed [facility] HIB 4 Dose Schedule Unknown Completed [facility] Hep B, Adol or Pedi Dosage Unknown Completed [facility] Meningococcal Polysaccharide (groups A, C, Y and W-135) conjugate vaccine (MCV4P) Unknown Completed [facility] MMR Unknown Completed [facility] Polio (IPV/OPV) Unknown Completed [facility] Varicella (varivax)(chicken pox) Unknown Completed [facility] Influenza Virus Vaccine Quad IM 3+ YRS Unknown Completed [facility] TDAP (ADACEL) VACCINE Unknown Completed [facility] HIB 4 Dose Schedule Unknown Completed [facility] Hep B, Adol or Pedi Dosage Unknown Completed [facility] Meningococcal Polysaccharide (groups A, C, Y and W-135) conjugate vaccine (MCV4P) Unknown Completed [facility] MMR Unknown Completed [facility] Polio (IPV/OPV) Unknown Completed [facility] Varicella (varivax)(chicken pox) Unknown Completed [facility] Influenza Virus Vaccine Quad IM 3+ YRS Unknown Completed [facility] TDAP (ADACEL) VACCINE Unknown Completed [facility] HIB 4 Dose Schedule Unknown Completed [facility] Hep B, Adol or Pedi Dosage Unknown Completed [facility] Meningococcal Polysaccharide (groups A, C, Y and W-135) conjugate vaccine (MCV4P) Unknown Completed [facility] MMR Unknown Completed [facility] Polio (IPV/OPV) Unknown Completed [facility] Varicella (varivax)(chicken pox) Unknown Completed [facility] Influenza Virus Vaccine Quad IM 3+ YRS Unknown Completed [facility] TDAP (ADACEL) VACCINE Unknown Completed [facility] HIB 4 Dose Schedule Unknown Completed [facility] Hep B, Adol or Pedi Dosage Unknown Completed [facility] Meningococcal Polysaccharide (groups A, C, Y and W-135) conjugate vaccine (MCV4P) Unknown Completed [facility] MMR Unknown Completed [facility] Polio (IPV/OPV) Unknown Completed [facility] Varicella (varivax)(chicken pox) Unknown Completed [facility] Influenza Virus Vaccine Quad IM 3+ YRS Unknown Completed [facility] TDAP (ADACEL) VACCINE Unknown Completed [facility] HIB 4 Dose Schedule Unknown Completed [facility] Hep B, Adol or Pedi Dosage Unknown Completed [facility] Meningococcal Polysaccharide (groups A, C, Y and W-135) conjugate vaccine (MCV4P) Unknown Completed [facility] MMR Unknown Completed [facility] Polio (IPV/OPV) Unknown Completed [facility] Varicella (varivax)(chicken pox) Unknown Completed [facility] Influenza Virus Vaccine Quad IM 3+ YRS Unknown Completed [facility] TDAP (ADACEL) VACCINE Unknown Completed [facility] HIB 4 Dose Schedule Unknown Completed [facility] Hep B, Adol or Pedi Dosage Unknown Completed [facility] Meningococcal Polysaccharide (groups A, C, Y and W-135) conjugate vaccine (MCV4P) Unknown Completed [facility] MMR Unknown Completed [facility] Polio (IPV/OPV) Unknown Completed [facility] Varicella (varivax)(chicken pox) Unknown Completed [facility] Meningococcal Polysaccharide (groups A, C, Y and W-135) conjugate vaccine (MCV4P) Unknown Completed [facility] Varicella (varivax)(chicken pox) Unknown Completed [facility] Influenza Virus Vaccine Quad IM 3+ YRS Unknown Completed [facility] TDAP (ADACEL) VACCINE Unknown Completed [facility] HIB 4 Dose Schedule Unknown Completed [facility] Hep B, Adol or Pedi Dosage Unknown Completed [facility] Meningococcal Polysaccharide (groups A, C, Y and W-135) conjugate vaccine (MCV4P) Unknown Completed [facility] MMR Unknown Completed [facility] Polio (IPV/OPV) Unknown Completed [facility] Varicella (varivax)(chicken pox) Unknown Completed [facility] Meningococcal Polysaccharide (groups A, C, Y and W-135) conjugate vaccine (MCV4P) Unknown Completed [facility] Varicella (varivax)(chicken pox) Unknown Completed [facility] Influenza Virus Vaccine Quad IM 3+ YRS Unknown Completed [facility] TDAP (ADACEL) VACCINE Unknown Completed [facility] HIB 4 Dose Schedule Unknown Completed [facility] Hep B, Adol or Pedi Dosage Unknown Completed [facility] MMR Unknown Completed [facility] Polio (IPV/OPV) Unknown [facility] Influ[facility] Virus Vaccine Quad IM 3+ YRS Unknown Completed [facility] TDAP (ADACEL) VACCINE Unknown Completed [facility] HIB 4 Dose Schedule Unknown Completed [facility] Hep B, Adol or Pedi Dosage Unknown Completed [facility] MMR Unknown Completed [facility] Polio (IPV/OPV) Unknown Completed [facility] Meningococcal Polysaccharide (groups A, C, Y and W-135) conjugate vaccine (MCV4P) Unknown Completed [facility] Varicella (varivax)(chicken pox) Unknown Completed [facility] Meningococcal Polysaccharide (groups A, C, Y and W-135) conjugate vaccine (MCV4P) Unknown Completed [facility] Varicella (varivax)(chicken pox) Unknown Completed [facility] Influenza Virus Vaccine Quad IM 3+ YRS Unknown Completed [facility] TDAP (ADACEL) VACCINE Unknown Completed [facility] HIB 4 Dose Schedule Unknown Completed [facility] Hep B, Adol or Pedi Dosage Unknown Completed [facility] MMR Unknown Completed [facility] Polio (IPV/OPV) Unknown Completed [facility] Influenza Virus Vaccine Quad IM 3+ YRS Unknown Completed [facility] TDAP (ADACEL) VACCINE Unknown Completed [facility] HIB 4 Dose Schedule Unknown Completed [facility] Hep B, Adol or Pedi Dosage Unknown Completed [facility] MMR Unknown Completed [facility] Polio (IPV/OPV) Unknown Completed [facility] Influenza Virus Vaccine Quad IM 3+ YRS Unknown Completed [facility] TDAP (ADACEL) VACCINE Unknown Completed [facility] HIB 4 Dose Schedule Unknown Completed [facility] Hep B, Adol or Pedi Dosage Unknown Completed [facility] Meningococcal Polysaccharide (groups A, C, Y and W-135) conjugate vaccine (MCV4P) Unknown Completed [facility] MMR Unknown Completed [facility] Polio (IPV/OPV) Unknown Completed [facility] Varicella (varivax)(chicken pox) Unknown Completed [facility] Influenza Virus Vaccine Quad IM 3+ YRS Unknown Completed [facility] TDAP (ADACEL) VACCINE Unknown Completed [facility] HIB 4 Dose Schedule Unknown Completed [facility] Hep B, Adol or Pedi Dosage Unknown Completed [facility] Meningococcal Polysaccharide (groups A, C, Y and W-135) conjugate vaccine (MCV4P) Unknown Completed [facility] MMR Unknown Completed [facility] Polio (IPV/OPV) Unknown Completed [facility] Varicella (varivax)(chicken pox) Unknown Completed [facility] Influenza Virus Vaccine Quad IM 3+ YRS Unknown Completed [facility] TDAP (ADACEL) VACCINE Unknown Completed [facility] HIB 4 Dose Schedule Unknown Completed [facility] Hep B, Adol or Pedi Dosage Unknown Completed [facility] Meningococcal Polysaccharide (groups A, C, Y and W-135) conjugate vaccine (MCV4P) Unknown Completed [facility] MMR Unknown Completed [facility] Polio (IPV/OPV) Unknown Completed [facility] Varicella (varivax)(chicken pox) Unknown Completed [facility] Influenza Virus Vaccine Quad IM 3+ YRS Unknown Completed [facility] TDAP (ADACEL) VACCINE Unknown Completed [facility] HIB 4 Dose Schedule Unknown Completed [facility] Hep B, Adol or Pedi Dosage Unknown Completed [facility] Meningococcal Polysaccharide (groups A, C, Y and W-135) conjugate vaccine (MCV4P) Unknown Completed [facility] MMR Unknown Completed [facility] Polio (IPV/OPV) Unknown Completed [facility] Varicella (varivax)(chicken pox) Unknown Completed [facility] Influenza Virus Vaccine Quad IM 3+ YRS Unknown Completed [facility] TDAP (ADACEL) VACCINE Unknown Completed [facility] HIB 4 Dose Schedule Unknown Completed [facility] Hep B, Adol or Pedi Dosage Unknown Completed [facility] Meningococcal Polysaccharide (groups A, C, Y and W-135) conjugate vaccine (MCV4P) Unknown Completed [facility] MMR Unknown Completed [facility] Polio (IPV/OPV) Unknown Completed [facility] Varicella (varivax)(chicken pox) Unknown Completed [facility] Meningococcal Polysaccharide (groups A, C, Y and W-135) conjugate vaccine (MCV4P) Unknown Completed [facility] Varicella (varivax)(chicken pox) Unknown Completed [facility] Influenza Virus Vaccine Quad IM 3+ YRS Unknown Completed [facility] TDAP (ADACEL) VACCINE Unknown Completed [facility] HIB 4 Dose Schedule Unknown Completed [facility] Hep B, Adol or Pedi Dosage Unknown Completed [facility] MMR Unknown Completed [facility] Polio (IPV/OPV) Unknown Completed [facility] Influenza Virus Vaccine Quad IM 3+ YRS Unknown Completed [facility] TDAP (ADACEL) VACCINE Unknown Completed [facility] HIB 4 Dose Schedule Unknown Completed [facility] Hep B, Adol or Pedi Dosage Unknown Completed [facility] Meningococcal Polysaccharide (groups A, C, Y and W-135) conjugate vaccine (MCV4P) Unknown Completed [facility] MMR Unknown Completed [facility] Polio (IPV/OPV) Unknown Completed [facility] Varicella (varivax)(chicken pox) Unknown Completed [facility] Influenza Virus Vaccine Quad IM 3+ YRS Unknown Completed [facility] TDAP (ADACEL) VACCINE Unknown Completed [facility] HIB 4 Dose Schedule Unknown Completed [facility] Hep B, Adol or Pedi Dosage Unknown Completed [facility] Meningococcal Polysaccharide (groups A, C, Y and W-135) conjugate vaccine (MCV4P) Unknown Completed [facility] MMR Unknown Completed [facility] Polio (IPV/OPV) Unknown Completed [facility] Varicella (varivax)(chicken pox) Unknown Completed [facility] Influenza Virus Vaccine Quad IM 3+ YRS Unknown Completed [facility] TDAP (ADACEL) VACCINE Unknown Completed [facility] HIB 4 Dose Schedule Unknown Completed [facility] Hep B, Adol or Pedi Dosage Unknown Completed [facility] Meningococcal Polysaccharide (groups A, C, Y and W-135) conjugate vaccine (MCV4P) Unknown Completed [facility] MMR Unknown Completed [facility] Polio (IPV/OPV) Unknown Completed [facility] Varicella (varivax)(chicken pox) Unknown Completed [facility] Influenza Virus Vaccine Quad IM 3+ YRS Unknown Completed [facility] TDAP (ADACEL) VACCINE Unknown Completed [facility] HIB 4 Dose Schedule Unknown Completed [facility] Hep B, Adol or Pedi Dosage Unknown Completed [facility] Meningococcal Polysaccharide (groups A, C, Y and W-135) conjugate vaccine (MCV4P) Unknown Completed [facility] MMR Unknown Completed [facility] Polio (IPV/OPV) Unknown Completed [facility] Varicella (varivax)(chicken pox) Unknown Completed [facility] Influenza Virus Vaccine Quad IM 3+ YRS Unknown Completed [facility] TDAP (ADACEL) VACCINE Unknown Completed [facility] HIB 4 Dose Schedule Unknown Completed [facility] Hep B, Adol or Pedi Dosage Unknown Completed [facility] Meningococcal Polysaccharide (groups A, C, Y and W-135) conjugate vaccine (MCV4P) Unknown Completed [facility] MMR Unknown Completed [facility] Polio (IPV/OPV) Unknown Completed [facility] Varicella (varivax)(chicken pox) Unknown Completed [facility] Influenza Virus Vaccine Quad IM 3+ YRS Unknown Completed [facility] TDAP (ADACEL) VACCINE Unknown Completed [facility] HIB 4 Dose Schedule Unknown Completed [facility] Hep B, Adol or Pedi Dosage Unknown Completed [facility] Meningococcal Polysaccharide (groups A, C, Y and W-135) conjugate vaccine (MCV4P) Unknown Completed [facility] MMR Unknown Completed [facility] Polio (IPV/OPV) Unknown Completed [facility] Varicella (varivax)(chicken pox) Unknown Completed [facility] Influenza Virus Vaccine Quad IM 3+ YRS Unknown Completed [facility] TDAP (ADACEL) VACCINE Unknown Completed [facility] HIB 4 Dose Schedule Unknown Completed [facility] Hep B, Adol or Pedi Dosage Unknown Completed [facility] Meningococcal Polysaccharide (groups A, C, Y and W-135) conjugate vaccine (MCV4P) Unknown Completed [facility] MMR Unknown Completed [facility] Polio (IPV/OPV) Unknown Completed [facility] Varicella (varivax)(chicken pox) Unknown Completed [facility] DTaP, Unspecified Formulation Unknown Completed [facility] Hib-HbOC Unknown Completed [facility] IPV Unknown Completed [facility] Meningococcal Polysaccharide (groups A, C, Y and W-135) conjugate vaccine (MCV4P) Unknown Completed [facility] Varicella (varivax)(chicken pox) Unknown Completed [facility] Influenza Virus Vaccine Quad IM 3+ YRS Unknown Completed [facility] TDAP (ADACEL) VACCINE Unknown Completed [facility] HIB 4 Dose Schedule Unknown Completed [facility] Hep B, Adol or Pedi Dosage Unknown Completed [facility] MMR Unknown Completed [facility] Polio (IPV/OPV) Unknown Completed [facility] DTaP, Unspecified Formulation Unknown Completed [facility] Hib-HbOC Unknown Completed [facility] IPV Unknown Completed [facility] Influenza Virus Vaccine Quad IM 3+ YRS Unknown Completed [facility] TDAP (ADACEL) VACCINE Unknown Completed [facility] HIB 4 Dose Schedule Unknown Completed [facility] Hep B, Adol or Pedi Dosage Unknown Completed [facility] Meningococcal Polysaccharide (groups A, C, Y and W-135) conjugate vaccine (MCV4P) Unknown Completed [facility] MMR Unknown Completed [facility] Polio (IPV/OPV) Unknown Completed [facility] Varicella (varivax)(chicken pox) Unknown Completed [facility] DTaP, Unspecified Formulation Unknown Completed [facility] Hib-HbOC Unknown Completed [facility] IPV Unknown Completed [facility] Influenza Virus Vaccine Quad IM 3+ YRS Unknown Completed [facility] TDAP Unknown Completed [facility] HIB 4 Dose Schedule Unknown Completed [facility] Hep B, Adol or Pedi Dosage Unknown Completed [facility] Meningococcal Polysaccharide (groups A, C, Y and W-135) conjugate vaccine (MCV4P) Unknown Completed [facility] MMR Unknown Completed [facility] Polio (IPV/OPV) Unknown Completed [facility] Varicella (varivax)(chicken pox) Unknown Completed [facility] DTaP, Unspecified Formulation Unknown Completed [facility] Hib-HbOC Unknown Completed [facility] IPV Unknown Completed [facility] Influenza Virus Vaccine Quad IM 3+ YRS Unknown Completed [facility] TDAP (ADACEL) VACCINE Unknown Completed [facility] HIB 4 Dose Schedule Unknown Completed [facility] Hep B, Adol or Pedi Dosage Unknown Completed [facility] Meningococcal Polysaccharide (groups A, C, Y and W-135) conjugate vaccine (MCV4P) Unknown Completed [facility] MMR Unknown Completed [facility] Polio (IPV/OPV) Unknown Completed [facility] Varicella (varivax)(chicken pox) Unknown Completed [facility] DTaP, Unspecified Formulation Unknown Completed [facility] Hib-HbOC Unknown Completed [facility] IPV Unknown Completed [facility] Influenza Virus Vaccine Quad IM 3+ YRS Unknown Completed [facility] TDAP (ADACEL) VACCINE Unknown Completed [facility] HIB 4 Dose Schedule Unknown Completed [facility] Hep B, Adol or Pedi Dosage Unknown Completed [facility] Meningococcal Polysaccharide (groups A, C, Y and W-135) conjugate vaccine (MCV4P) Unknown Completed [facility] MMR Unknown Completed [facility] Polio (IPV/OPV) Unknown Completed [facility] Varicella (varivax)(chicken pox) Unknown Completed [facility] DTaP, Unspecified Formulation Unknown Completed [facility] Hib-HbOC Unknown Completed [facility] IPV Unknown Completed [facility] Influenza Virus Vaccine Quad IM 3+ YRS Unknown Completed [facility] TDAP (ADACEL) VACCINE Unknown Completed [facility] HIB 4 Dose Schedule Unknown Completed [facility] Hep B, Adol or Pedi Dosage Unknown Completed [facility] Meningococcal Polysaccharide (groups A, C, Y and W-135) conjugate vaccine (MCV4P) Unknown Completed [facility] MMR Unknown Completed [facility] Polio (IPV/OPV) Unknown Completed [facility] Varicella (varivax)(chicken pox) Unknown Completed [facility] DTaP, Unspecified Formulation Unknown Completed [facility] Hib-HbOC Unknown Completed [facility] IPV Unknown Completed [facility] DTaP, Unspecified Formulation Unknown Completed [facility] Hib-HbOC Unknown Completed [facility] Influenza Virus Vaccine Quad IM 3+ YRS Unknown Completed [facility] TDAP (ADACEL) VACCINE Unknown Completed [facility] HIB 4 Dose Schedule Unknown Completed [facility] Hep B, Adol or Pedi Dosage Unknown Completed [facility] Meningococcal Polysaccharide (groups A, C, Y and W-135) conjugate vaccine (MCV4P) Unknown Completed [facility] MMR Unknown Completed [facility] Polio (IPV/OPV) Unknown Completed [facility] Varicella (varivax)(chicken pox) Unknown Completed [facility] DTaP, Unspecified Formulation Unknown Completed [facility] Hib-HbOC Unknown Completed [facility] IPV Unknown Completed [facility] Influenza Virus Vaccine Quad IM 3+ YRS Unknown Completed [facility] TDAP (ADACEL) VACCINE Unknown Completed [facility] HIB 4 Dose Schedule Unknown Completed [facility] Hep B, Adol or Pedi Dosage Unknown Completed [facility] Meningococcal Polysaccharide (groups A, C, Y and W-135) conjugate vaccine (MCV4P) Unknown Completed [facility] MMR Unknown Completed [facility] Polio (IPV/OPV) Unknown Completed [facility] Varicella (varivax)(chicken pox) Unknown Completed [facility] DTaP, Unspecified Formulation Unknown Completed [facility] Hib-HbOC Unknown Completed [facility] IPV Unknown Completed [facility] Influenza Virus Vaccine Quad IM 3+ YRS Unknown Completed [facility] TDAP (ADACEL) VACCINE Unknown Completed [facility] HIB 4 Dose Schedule Unknown Completed [facility] Hep B, Adol or Pedi Dosage Unknown Completed [facility] Meningococcal Polysaccharide (groups A, C, Y and W-135) conjugate vaccine (MCV4P) Unknown Completed [facility] MMR Unknown Completed [facility] Polio (IPV/OPV) Unknown Completed [facility] Varicella (varivax)(chicken pox) Unknown Completed [facility] DTaP, Unspecified Formulation Unknown Completed [facility] Hib-HbOC Unknown Completed [facility] IPV Unknown Completed [facility] Influenza Virus Vaccine Quad IM 3+ YRS Unknown Completed [facility] TDAP (ADACEL) VACCINE Unknown Completed [facility] HIB 4 Dose Schedule Unknown Completed [facility] Hep B, Adol or Pedi Dosage Unknown Completed [facility] Meningococcal Polysaccharide (groups A, C, Y and W-135) conjugate vaccine (MCV4P) Unknown Completed [facility] MMR Unknown Completed [facility] Polio (IPV/OPV) Unknown [facility] Varicella (varivax)(chicken pox) Unknown Completed [facility] DTaP, Unspecified Formulation Unknown Completed [facility] Hib-HbOC Unknown Completed [facility] IPV Unknown Completed [facility] Influenza Virus Vaccine Quad IM 3+ YRS Unknown Completed [facility] TDAP (ADACEL) VACCINE Unknown Completed [facility] HIB 4 Dose Schedule Unknown Completed [facility] Hep B, Adol or Pedi Dosage Unknown Completed [facility] Meningococcal Polysaccharide (groups A, C, Y and W-135) conjugate vaccine (MCV4P) Unknown Completed [facility] MMR Unknown Completed [facility] Polio (IPV/OPV) Unknown Completed [facility] Varicella (varivax)(chicken pox) Unknown Completed [facility] DTaP, Unspecified Formulation Unknown Completed [facility] Hib-HbOC Unknown Completed [facility] IPV Unknown Completed [facility] Influenza Virus Vaccine Quad IM 3+ YRS Unknown Completed [facility] TDAP (ADACEL) VACCINE Unknown Completed [facility] HIB 4 Dose Schedule Unknown Completed [facility] Hep B, Adol or Pedi Dosage Unknown Completed [facility] Meningococcal Polysaccharide (groups A, C, Y and W-135) conjugate vaccine (MCV4P) Unknown Completed [facility] MMR Unknown Completed [facility] Polio (IPV/OPV) Unknown [facility] Varicella (varivax)(chicken pox) Unknown Completed [facility] DTaP, Unspecified Formulation Unknown Completed [facility] Hib-HbOC Unknown Completed [facility] IPV Unknown Completed [facility] Influenza Virus Vaccine Quad IM 3+ YRS Unknown Completed [facility] HIB 4 Dose Schedule Unknown Completed [facility] Hep B, Adol or Pedi Dosage Unknown Completed [facility] Meningococcal Polysaccharide (groups A, C, Y and W-135) conjugate vaccine (MCV4P) Unknown Completed [facility] MMR Unknown Completed [facility] Polio (IPV/OPV) Unknown Completed [facility] Varicella (varivax)(chicken pox) Unknown Completed [facility] TDAP Unknown Completed [facility] DTaP, Unspecified Formulation Unknown Completed [facility] Hib-HbOC Unknown Completed [facility] IPV Unknown Completed [facility] measles/mumps/rubell a virus vaccine Unknown Completed [facility] diphtheria/pertussis , acel/tetanus ped Unknown Completed [facility] poliovirus vaccine, inactivated Unknown Completed [facility] haemophilus b conjugate (PRP-T) vaccine Unknown Completed [facility] hepatitis B pediatric vaccine Unknown Completed [facility] poliovirus vaccine-unspecified Unknown Completed [facility] measles/mumps/rubell a virus vaccine Unknown Completed [facility] diphtheria/pertussis , acel/tetanus ped Unknown Completed [facility] poliovirus vaccine, inactivated Unknown Completed [facility] haemophilus b conjugate (PRP-T) vaccine Unknown Completed [facility] hepatitis B pediatric vaccine Unknown Completed [facility] Hx poliovirus vaccine-unspecified Unknown Completed [facility] measles/mumps/rubell a virus vaccine Unknown Completed [facility] diphtheria/pertussis , acel/tetanus ped Unknown Completed [facility] poliovirus vaccine, inactivated Unknown Completed [facility] haemophilus b conjugate (PRP-T) vaccine Unknown Completed [facility] hepatitis B pediatric vaccine Unknown Completed [facility] poliovirus vaccine-unspecified Unknown Completed [facility] measles/mumps/rubell a virus vaccine Unknown Completed [facility] diphtheria/pertussis , acel/tetanus ped Unknown Completed [facility] poliovirus vaccine, inactivated Unknown Completed [facility] haemophilus b conjugate (PRP-T) vaccine Unknown Completed [facility] hepatitis B pediatric vaccine Unknown Completed [facility] poliovirus vaccine-unspecified Unknown Completed [facility] measles/mumps/rubell a virus vaccine Unknown Completed [facility] diphtheria/pertussis , acel/tetanus ped Unknown Completed [facility] poliovirus vaccine, inactivated Unknown Completed [facility] haemophilus b conjugate (PRP-T) vaccine Unknown Completed [facility] hepatitis B pediatric vaccine Unknown Completed [facility] Hx poliovirus vaccine-unspecified Unknown Completed [facility] Vital Signs Vital Name Observation Time Observation Value Comments S ource Systolic blood pressure 2025-04-04 19:23:00 132 mm[Hg] [facility] Diastolic blood pressure 2025-04-04 19:23:00 85 mm[Hg] [facility] Heart rate 2025-04-04 19:23:00 82 /min [facility] Body height 2025-04-04 19:23:00 165.1 cm [facility] Body weight 2025-04-04 19:23:00 89.449 kg [facility] BMI 2025-04-04 19:23:00 32.82 kg/m2 [facility] Oxygen saturation in Arterial blood by Pulse oximetry 2025-04-04 19:23:00 98 /min [facility] Systolic blood pressure 2025-03-07 20:07:00 120 mm[Hg] [facility] Diastolic blood pressure 2025-03-07 20:07:00 75 mm[Hg] [facility] Heart rate 2025-03-07 20:07:00 68 /min [facility] Body temperature 2025-03-07 20:07:00 36.72 Soila [facility] Body weight 2025-03-07 20:07:00 89.177 kg [facility] BMI 2025-03-07 20:07:00 32.72 kg/m2 [facility] Systolic blood pressure 2025-01-14 16:37:00 132 mm[Hg] [facility] Diastolic blood pressure 2025-01-14 16:37:00 83 mm[Hg] [facility] Heart rate 2025-01-14 16:37:00 94 /min [facility] Body temperature 2025-01-14 16:37:00 36.72 Soila [facility] Respiratory rate 2025-01-14 16:37:00 20 /min [facility] Body height 2025-01-14 16:37:00 165.1 cm [facility] Body weight 2025-01-14 16:37:00 86.32 kg [facility] BMI 2025-01-14 16:37:00 31.67 kg/m2 [facility] Oxygen saturation in Arterial blood by Pulse oximetry 2025-01-14 16:37:00 98 /min [facility] Systolic blood pressure 2024-12-31 18:45:00 126 mm[Hg] [facility] Diastolic blood pressure 2024-12-31 18:45:00 90 mm[Hg] [facility] Heart rate 2024-12-31 18:45:00 75 /min [facility] Respiratory rate 2024-12-31 18:45:00 18 /min [facility] Body height 2024-12-31 18:45:00 165.1 cm [facility] Body weight 2024-12-31 18:45:00 85.276 kg [facility] BMI 2024-12-31 18:45:00 31.28 kg/m2 [facility] Systolic blood pressure 2024-12-24 20:14:00 149 mm[Hg] [facility] Diastolic blood pressure 2024-12-24 20:14:00 86 mm[Hg] [facility] Heart rate 2024-12-24 20:14:00 76 /min [facility] Body temperature 2024-12-24 20:14:00 36.56 Soila [facility] Respiratory rate 2024-12-24 20:14:00 16 /min [facility] Body height 2024-12-24 20:14:00 165.1 cm [facility] Body weight 2024-12-24 20:14:00 86.183 kg [facility] BMI 2024-12-24 20:14:00 31.62 kg/m2 [facility] Oxygen saturation in Arterial blood by Pulse oximetry 2024-12-24 20:14:00 99 /min [facility] Systolic blood pressure 2024-10-04 19:34:00 132 mm[Hg] [facility] Diastolic blood pressure 2024-10-04 19:34:00 83 mm[Hg] [facility] Heart rate 2024-10-04 19:34:00 70 /min [facility] Body height 2024-10-04 19:34:00 [facility].1 cm [facility] Body weight 2024-10-04 19:34:00 84.823 kg [facility] BMI 2024-10-04 19:34:00 31.12 kg/m2 [facility] Oxygen saturation in Arterial blood by Pulse oximetry 2024-10-04 19:34:00 99 /min [facility] Systolic blood pressure 2024-07-08 14:31:00 115 mm[Hg] [facility] Diastolic blood pressure 2024-07-08 14:31:00 81 mm[Hg] [facility] Heart rate 2024-07-08 14:31:00 64 /min [facility] Body temperature 2024-07-08 14:31:00 36.56 Soila [facility] Respiratory rate 2024-07-08 14:31:00 18 /min [facility] Body height 2024-07-08 14:31:00 165.1 cm [facility] Body weight 2024-07-08 14:31:00 85.186 kg [facility] BMI 2024-07-08 14:31:00 31.25 kg/m2 [facility] Systolic blood pressure 2024-07-05 20:36:00 121 mm[Hg] [facility] Diastolic blood pressure 2024-07-05 20:36:00 85 mm[Hg] [facility] Heart rate 2024-07-05 20:36:00 67 /min [facility] Body temperature 2024-07-05 20:36:00 36.44 Soila [facility] Body height 2024-07-05 20:36:00 165.1 cm [facility] Body weight 2024-07-05 20:36:00 84.414 kg [facility] BMI 2024-07-05 20:36:00 30.97 kg/m2 [facility] Oxygen saturation in Arterial blood by Pulse oximetry 2024-07-05 20:36:00 100 /min [facility] Systolic blood pressure 2024-05-24 19:30:00 116 mm[Hg] [facility] Diastolic blood pressure 2024-05-24 19:30:00 76 mm[Hg] [facility] Heart rate 2024-05-24 19:30:00 67 /min [facility] Body height 2024-05-24 19:30:00 165.1 cm [facility] Body weight 2024-05-24 19:30:00 82.872 kg [facility] BMI 2024-05-24 19:30:00 30.40 kg/m2 [facility] Oxygen saturation in Arterial blood by Pulse oximetry 2024-05-24 19:30:00 98 /min [facility] Systolic blood pressure 2024-05-21 05:19:54 130 mm[Hg] [facility] Diastolic blood pressure 2024-05-21 05:19:54 97 mm[Hg] [facility] Heart rate 2024-05-21 05:19:54 86 /min [facility] Body temperature 2024-05-21 05:19:54 35.89 Soila [facility] Respiratory rate 2024-05-21 05:19:54 16 /min [facility] Oxygen saturation in Arterial blood by Pulse oximetry 2024-05-21 05:19:54 100 /min [facility] Body height 2024-05-21 00:15:00 165.1 cm [facility] Body weight 2024-05-21 00:15:00 81.647 kg [facility] BMI 2024-05-21 00:15:00 29.95 kg/m2 [facility] Systolic blood pressure 2024-05-18 14:19:00 112 mm[Hg] [facility] Diastolic blood pressure 2024-05-18 14:19:00 69 mm[Hg] [facility] Heart rate 2024-05-18 14:19:00 58 /min [facility] Body temperature 2024-05-18 14:19:00 36.39 Soila [facility] Body height 2024-05-18 14:19:00 165.1 cm [facility] weight 2024-05-18 14:19:00 82.056 kg [facility] BMI 2024-05-18 14:19:00 30.10 kg/m2 [facility] Oxygen saturation in Arterial blood by Pulse oximetry 2024-05-18 14:19:00 97 /min [facility] Systolic blood pressure 2024-04-24 16:19:00 122 mm[Hg] [facility] Diastolic blood pressure 2024-04-24 16:19:00 83 mm[Hg] [facility] Heart rate 2024-04-24 16:19:00 84 /min [facility] Body temperature 2024-04-24 16:19:00 37.06 Soila [facility] Body height 2024-04-24 16:19:00 165.1 cm [facility] Body weight 2024-04-24 16:19:00 82.101 kg [facility] BMI 2024-04-24 16:19:00 30.12 kg/m2 [facility] Oxygen saturation in Arterial blood by Pulse oximetry 2024-04-24 16:19:00 98 /min [facility] Systolic blood pressure 2024-04-05 19:28:00 127 mm[Hg] [facility] Diastolic blood pressure 2024-04-05 19:28:00 76 mm[Hg] [facility] Heart rate 2024-04-05 19:28:00 76 /min [facility] Body height 2024-04-05 19:28:00 165.1 cm [facility] Body weight 2024-04-05 19:28:00 84.732 kg [facility] BMI 2024-04-05 19:28:00 31.09 kg/m2 [facility] Oxygen saturation in Arterial blood by Pulse oximetry 2024-04-05 19:28:00 99 /min [facility] Systolic blood pressure 2023-10-28 15:47:00 115 mm[Hg] [facility] Diastolic blood pressure 2023-10-28 15:47:00 74 mm[Hg] [facility] Heart rate 2023-10-28 15:47:00 76 /min [facility] Body temperature 2023-10-28 15:47:00 36.78 Soila [facility] Respiratory rate 2023-10-28 15:47:00 18 /min [facility] Body height 2023-10-28 15:47:00 165.1 cm [facility] Body weight 2023-10-28 15:47:00 78.518 kg [facility] BMI 2023-10-28 15:47:00 28.81 kg/m2 [facility] Oxygen saturation in Arterial blood by Pulse oximetry 2023-10-28 15:47:00 98 /min [facility] Systolic blood pressure 2023-10-06 19:47:00 125 mm[Hg] [facility] Diastolic blood pressure 2023-10-06 19:47:00 81 mm[Hg] [facility] Heart rate 2023-10-06 19:47:00 85 /min [facility] Respiratory rate 2023-10-06 19:47:00 18 /min [facility] Body height 2023-10-06 19:47:00 165.1 cm [facility] Body weight 2023-10-06 19:47:00 77.928 kg [facility] BMI 2023-10-06 19:47:00 28.59 kg/m2 [facility] Oxygen saturation in Arterial blood by Pulse oximetry 2023-10-06 19:47:00 96 /min [facility] Systolic blood pressure 2023-03-26 15:42:00 145 mm[Hg] [facility] Diastolic blood pressure 2023-03-26 15:42:00 86 mm[Hg] [facility] Heart rate 2023-03-26 15:42:00 86 /min [facility] Body height 2023-03-26 15:41:00 165.1 cm [facility] Body weight 2023-03-26 15:41:00 80.241 kg [facility] BMI 2023-03-26 15:41:00 29.44 kg/m2 [facility] Systolic blood pressure 2023-02-27 23:44:00 127 mm[Hg] [facility] Diastolic blood pressure 2023-02-27 23:44:00 84 mm[Hg] [facility] Heart rate 2023-02-27 23:44:00 75 /min [facility] Body temperature 2023-02-27 23:44:00 36.5 Soila [facility] Respiratory rate 2023-02-27 23:44:00 20 /min [facility] Body height 2023-02-27 23:44:00 165.1 cm [facility] Body weight 2023-02-27 23:44:00 80.015 kg [facility] BMI 2023-02-27 23:44:00 29.35 kg/m2 [facility] Oxygen saturation in Arterial blood by Pulse oximetry 2023-02-27 23:44:00 99 /min [facility] Systolic blood pressure 2022-11-18 22:24:00 114 mm[Hg] [facility] Diastolic blood pressure 2022-11-18 22:24:00 69 mm[Hg] [facility] Heart rate 2022-11-18 22:24:00 90 /min [facility] Body temperature 2022-11-18 22:24:00 37.28 Soila [facility] Respiratory rate 2022-11-18 22:24:00 17 /min [facility] Body height 2022-11-18 22:24:00 165.1 cm [facility] Body weight 2022-11-18 22:24:00 80.74 kg [facility] BMI 2022-11-18 22:24:00 29.62 kg/m2 [facility] Oxygen saturation in Arterial blood by Pulse oximetry 2022-11-18 22:24:00 98 /min [facility] BP Systolic 2024-04-19 13:35:00 119 mm[Hg] Reji Vinson Gustavo BP Diastolic 2024-04-19 13:35:00 83 mm[Hg] [...] [facility] Heart Rate 2020-08-09 05:32:00 [facility] Rate 2020-08-09 05:32:00 [facility] Systolic (mm Hg) 2020-08-09 05:32:00 [facility] Diastolic (mm Hg) 2020-08-09 05:32:00 [facility] Weight 2020-08-09 02:24:00 [facility] Systolic (mm Hg) 2020-08-09 02:24:00 [facility] Diastolic (mm Hg) 2020-08-09 02:24:00 [facility] Heart Rate 2020-08-09 02:24:00 [facility] Respitory Rate 2020-08-09 02:24:00 [facility] Temperature Oral (F) 2020-08-09 02:24:00 98.4 F [facility] Temperature Oral (F) 2014-05-24 22:16:00 98.7 F [facility] Diastolic (mm Hg) 2014-05-24 22:16:00 [facility] Respitory Rate 2014-05-24 22:16:00 [facility] Systolic (mm Hg) 2014-05-24 22:16:00 [facility] Respitory Rate 2014-05-24 21:03:00 [facility] Diastolic (mm Hg) 2014-05-24 21:03:00 [facility] Systolic (mm Hg) 2014-05-24 21:03:00 [facility] Weight 2014-05-24 19:05:00 [facility] Height 2014-05-24 19:05:00 165.1 cm [facility] BMI Calculated 2014-05-24 19:05:00 [facility] Temperature Oral (F) 2014-05-24 19:05:00 98.9 F [facility] Respitory Rate 2014-05-24 19:05:00 [facility] Diastolic (mm Hg) 2014-05-24 19:05:00 [facility] Heart Rate 2014-05-24 19:05:00 [facility] Systolic (mm Hg) 2014-05-24 19:05:00 [facility] Procedures Procedure Date / Time Performed Performing Clinician Source GALV ONLY - VAGINAL PATHOGENS BY NUCLEIC ACID TESTING 2025-01-14 16:59:00 Juan Gilman [facility] POCT URINALYSIS 2025-01-14 16:53:00 [facility] 2025-01-14 16:53:00 Johan Gilman [facility] POCT URINALYSIS W/O SPECIFIC GRAVITY 2024-12-31 00:00:00 Иван Wall [facility] POCT TEST 2024-12-24 20:23:00 Bill Guadalupe [facility] US PELVIS COMPLETE WITH TRANSVAGINAL 2024-07-13 17:20:49 Edson Bergman [facility] URINE CULTURE 2024-07-05 21:09:00 [facility] 2024-07-05 20:38:00 Edson Bergman [facility] TRANSTHORACIC ECHO (TTE) COMPLETE 2024-06-02 20:55:56 Marlon Portillo [facility] CT CHEST PULMONARY ANGIOGRAM 2024-05-21 04:01:37 Harmony Barnard [facility] POCT TEST 2024-05-21 02:28:00 Harmony Barnard [facility] MAGNESIUM 2024-05-21 02:23:00 Harmony Barnard [facility] TROPONIN I 2024-05-21 02:23:00 Harmony Barnard [facility] BASIC METABOLIC PANEL (NA, K, CL, CO2, GLUCOSE, BUN, CREATININE, CA) 2024-05-21 02:23:00 Harmony Barnard [facility] CBC WITH DIFF 2024-05-21 02:23:00 Harmony Barnard [facility] D-DIMER 2024-05-21 02:23:00 Harmony Barnard [facility] POCT MOLECULAR FLU 2023-10-28 15:56:00 Unknown, Attend [facility] POCT MOLECULAR STREP 2023-10-28 15:54:00 Unknown, Atte gradymarti [facility] FREE T4 2023-10-14 14:44:00 Jordy Sena [facility] THYROID STIMULATING HORMONE 2023-10-14 14:44:00 Jordy Sena [facility] CONSENT/REFUSAL FOR DIAGNOSIS AND TREATMENT 2023-10-06 19:42:45 Doctor Unassigned, [place] [facility] CT HEAD WO CONTRAST 2023-03-21 18:47:03 Kimberley Horowitz [facility] XR SHUNT SERIES 2023-03-21 18:45:17 Din[facility] URINALYSIS 2023-02-27 23:40:00 Abby Owens [facility] PATIENT FINANCIAL POLICY 2023-02-27 23:32:26 Doctor Unassigned, [place] [facility] POCT MOLECULAR FLU 2022-11-18 22:25:00 Unknown, Attend ing [facility] POCT MOLECULAR STREP 2022-11-18 22:22:00 Unknown, Atte nding [facility] REFERRAL- REQUEST/RESPONSE 2022-06-19 05:01:00 Doctor Unassigned, [place] [facility] [[facility]] VITAMIN D, 25-HYDROXY, LC/MS/MS 2018-01-09 00:00:00 [facility] [[facility]] TSH, 3RD GENERATION 2018-01-09 00:00:00 [facility] [QL] CMP W/EGFR 2018-01-09 00:00:00 [facility] [QL] HEMOGLOBIN A1c 2018-01-09 00:00:00 [facility] [QLH] LIPASE 2018-01-09 00:00:00 [facility] [[facility]] T4, FREE 2018-01-09 00:00:00 [facility] Shunt procedure into peritoneum [facility] Plan of Care Planned Activity Planned Date Details Comments Source Goal Plan of Care Note [code = 75224-0] Goal Plan of Care Note [code = 76911-0] Goal Plan of Care Note [code = 02679-0] Goal Plan of Care Note [code = 00163-9] Goal Plan of Care Note [code = 99785-0] Goal Plan of Care Note [code = 34320-1] Goal Plan of Care Note [code = 96039-4] Goal Plan of Care Note [code = 83243-9] Goal Plan of Care Note [code = 42299-4] Goal Plan of Care Note [code = 18865-6] Goal Plan of Care Note [code = 95198-5] Goal Plan of Care Note [code = 92756-2] Goal Plan of Care Note [code = 16950-1] Goal Plan of Care Note [code = 79232-2] Goal Plan of Care Note [code = 32737-0] Goal Plan of Care Note [code = 89894-7] Goal Plan of Care Note [code = 86226-7] Goal Plan of Care Note [code = 63902-5] Goal Plan of Care Note [code = 40500-5] Goal Plan of Care Note [code = 57813-9] Goal Plan of Care Note [code = 51307-6] Goal Plan of Care Note [code = 81225-6] Goal Plan of Care Note [code = 80322-7] Goal Plan of Care Note [code = 35216-6] Goal Plan of Care Note [code = 31119-2] Goal Plan of Care Note [code = 02304-7] Goal Plan of Care Note [code = 58132-4] Goal Plan of Care Note [code = 44684-4] Goal Plan of Care Note [code = 30975-4] Goal Plan of Care Note [code = 07080-3] Goal Plan of Care Note [code = 89783-0] Goal Plan of Care Note [code = 13342-9] Goal Plan of Care Note [code = 95252-5] Goal Plan of Care Note [code = 55077-3] Goal Plan of Care Note [code = 94145-6] Goal Plan of Care Note [code = 54662-2] Goal Plan of Care Note [code = 65171-6] Goal Plan of Care Note [code = 90153-5] Goal Plan of Care Note [code = 97683-4] Goal Plan of Care Note [code = 80965-5] Goal Plan of Care Note [code = 70918-5] Goal Plan of Care Note [code = 02054-4] Goal Plan of Care Note [code = 64210-8] Goal Plan of Care Note [code = 90443-4] Goal Plan of Care Note [code = 29466-1] Encounters Start Date/Time End Date/Time Encounter Type Admission Type Attending Clinicians Care Facility Care Department Encounter ID Source 2021-10-01 14:17:50 [facility] [id number] 2021-09-30 22:26:09 [facility] [id number] [facility] 2021-09-30 22:13:05 [facility] [id number] [facility] 2021-09-30 22:07:48 Emergency [facility] [id number] [facility] 2021-09-30 21:52:57 [facility] [id number] [facility] 2021-09-30 21:47:12 [facility] [id number] [facility] 2021-09-30 17:49:58 Outpatient [facility] [id number] [facility] 2021-09-30 17:46:00 Outpatient [facility] [id number] [facility] 2021-09-29 07:41:30 Emergency [facility] [id number] [facility] 2021-09-29 07:05:22 Emergency [facility] [id number] [facility] 2021-09-29 06:59:05 Emergency [facility] [id number] [facility] 2021-09-28 16:28:56 Emergency [facility] [id number] [facility] 2021-09-28 16:12:06 Emergency [facility] [id number] [facility] 2021-09-28 16:07:19 Emergency [facility] [id number] [facility] 2021-09-28 16:01:25 Emergency [facility] [id number] [facility] 2021-09-27 19:42:34 Emergency [facility] [id number] [facility] 2021-09-27 19:34:23 [facility] [id number] [facility] 2025-06-02 15:30:00 2025-06-02 15:30:00 Outpatient LAURIE FITZPATRICK VIEN [facility] [id number] [facility] 2025-04-27 12:30:00 2025-04-27 12:30:00 Outpatient R ИВАН WALL [facility] [id number] [facility] 2025-04-22 19:15:00 2025-04-22 19:15:00 Outpatient R ИВАН WALL [facility] [id number] [facility] 2025-04-19 16:15:00 2025-04-19 16:17:42 Outpatient R ИВАН WALL [facility] [id number] [facility] 2025-04-19 15:30:00 2025-04-19 15:57:33 Outpatient R ИВАН WALL [facility] [id number] [facility] 2025-04-18 21:34:27 2025-04-18 21:36:00 Emergency [facility] [id number] [facility] 2025-04-04 14:30:00 2025-04-04 15:00:00 Office Visit Jordy Sena [facility] 1.2.840.114 350.1.13.10 4.2.7.2.686 [id number] [facility] 2025-04-04 14:30:00 2025-04-04 14:30:00 Outpatient R JORDY SENA [facility] [id number] [facility] 2025-03-07 15:00:00 2025-03-07 15:53:06 Outpatient R LAURIE FITZPATRICK VIEN [facility] [id number] [facility] 2025-03-07 15:00:00 2025-03-07 15:53:06 Office Visit Laurie Fitzpatrick [facility] 1.2.840.114 350.1.13.10 4.2.7.2.686 [id number] [facility] 2025-03-01 16:30:00 2025-03-01 16:30:00 Outpatient R ИВАН WALL [facility] [id number] [facility] 2025-01-25 00:00:00 2025-01-25 08:52:27 Refill Jordy Sena [facility] 1.2840.114 350.1.13.10 4.2.7.2.686 [id number] [facility] 2025-01-17 00:00:00 2025-01-17 09:29:26 Telephone Juan Gilman [facility] 1.2840.114 350.1.13.10 4.2.7.2.686 [id number] [facility] 2025-01-15 00:00:00 2025-01-15 15:10:59 Case Management Neema Guadalupe [facility] 1.284.114 350.1.13.10 4.2.7.2.686 [id number] [facility] 2020-04-05 00:00:00 2025-01-15 03:02:39 Orders Only Hina Barton [facility] 1.2.114 350.1.13.10 4.2.7.2.686 [id number] [facility] 2022-04-26 00:00:00 2025-01-15 02:48:14 Orders Only Loan Lazaro Mohammed [facility] 1.2840.114 350.1.13.10 4.2.7.2.686 [id number] [facility] 2025-01-14 10:20:00 2025-01-14 11:01:22 Outpatient R LUANA GILMANBRUNO [facility] [id number] [facility] 2025-01-14 10:20:00 2025-01-14 11:01:22 Urgent Care Luana Gilmanlinajuliane Unknown, Attending [facility] 1.2840.114 350.1.13.10 4.2.7.2.686 [id number] [facility] 2024-12-31 13:15:00 2024-12-31 13:30:00 Rn Nicu Visit 2, Adc Lab Иван Wall 2, Adc Lab [facility] 1.2.114 350.1.13.10 4.2.7.2.686 [id number] [facility] 2024-12-31 12:30:00 2024-12-31 12:56:21 Outpatient R MAE ИВАН [facility] [id number] [facility] 2024-12-31 12:30:00 2024-12-31 12:56:21 Office Visit Иван Wall [facility] 1..114 350.1.13.10 4.2.7.2.686 [id number] [facility] 2024-12-30 00:00:00 2024-12-30 09:45:34 Telephone Laurie Fitzpatrick [facility] 1.284.114 350.1.13.10 4.2.7.2.686 [id number] [facility] 2024-12-27 00:00:00 2024-12-27 20:25:53 Telephone Mukul Juan [facility] 1.284.114 350.1.13.10 4.2.7.2.686 [id number] [facility] 2024-12-25 00:00:00 2024-12-25 12:29:26 Case Management Neema Guadalupe [facility] 1.84.114 350.1.13.10 4.2.7.2.686 [id number] [facility] 2024-12-24 14:20:00 2024-12-24 14:28:22 Outpatient R NEEMA GUADALUPE [facility] [id number] [facility] 2024-12-24 14:20:00 2024-12-24 14:28:22 Urgent Care Neema Guadalupe Unknown, Attending [facility] 1.84.114 350.1.13.10 4.2.7.2.686 [id number] [facility] 2024-12-24 10:00:00 2024-12-24 10:00:00 Outpatient R EDSON BERGMAN OGECHUKWU [facility] [id number] [facility] 2024-12-23 00:00:00 2024-12-24 08:43:40 Telephone Edson Bergman [facility] 1.840.114 350.1.13.10 4.2.7.2.686 [id number] [facility] 2024-11-17 16:00:00 2024-11-17 16:00:00 Outpatient R EDSON BERGMAN OGECHUKWU [facility] [id number] [facility] 2024-10-12 00:00:00 2024-11-13 18:20:22 Patient Secure Jordy Schmitz. [facility] 1.840.114 350.1.13.10 4.2.7.2.686 [id number] [facility] 2024-11-10 14:30:00 2024-11-10 14:30:00 Outpatient R PACHECO EDSON BERGMAN, EDSON [facility] [id number] [facility] 2024-10-11 15:00:00 2024-10-11 15:15:00 Rn Nicu Visit Lab, Scott Melendez Lab, Abel Pepper [facility] 1.2.840.114 350.1.13.10 4.2.7.2.686 [id number] [facility] 2024-10-11 15:00:00 2024-10-11 15:00:00 Outpatient R SCOTT IZAGUIRRE [facility] [id number] [facility] 2024-10-04 14:00:00 2024-10-04 14:02:45 Outpatient R JORDY SENA [facility] [id number] [facility] 2024-10-04 14:00:00 2024-10-04 14:02:45 Office Visit Jordy Sena [facility] 1.2.840.114 350.1.13.10 4.2.7.2.686 [id number] [facility] 2024-07-06 00:00:00 2024-08-07 18:21:00 Patient Secure Msg Doctor Unassigned, [place] Doctor Unassigned, [place] [facility] 1..840.114 350.1.13.10 4.2.7.2.686 [id number] [facility] 2024-07-21 15:30:00 2024-07-21 15:30:00 Outpatient R LAURIE FITZPATRICK VIEN [facility] [id number] [facility] 2024-07-16 00:00:00 2024-07-19 08:11:12 Patient Secure Msg Edson Bergman [facility] 1.2.840.114 350.1.13.10 4.2.7.2.686 [id number] [facility] 2024-07-17 00:00:00 2024-07-17 00:00:00 Outpatient R EDSON BERGMAN OGECHUKWU [facility] [id number] [facility] 2024-07-13 00:00:00 2024-07-14 19:42:13 Telephone Laurie Fitzpatrick [facility] 1.2.840.114 350.1.13.10 4.2.7.2.686 [id number] [facility] 2024-07-13 10:29:07 2024-07-13 23:59:00 Outpatient R EDSON BERGMAN OGECHUKWU [facility] [id number] [facility] 2024-07-13 10:29:07 2024-07-13 23:59:00 Hospital Encounter Edson Bergman [facility] 1.2.840.114 350.1.13.10 4.2.7.2.686 [id number] [facility] 2024-06-03 00:00:00 2024-07-10 18:25:37 Patient Secure Msg Ness Portilloannalisenia [facility] 1.2.840.114 350.1.13.10 4.2.7.2.686 [id number] [facility] 2024-07-09 00:00:00 2024-07-09 10:15:55 Telephone Rosario Bergmanjuliane [facility] 1.2.840.114 350.1.13.10 4.2.7.2.686 [id number] [facility] 2024-07-09 00:00:00 2024-07-09 09:52:42 [facility] 1.2.840.114 350.1.13.10 4.2.7.2.686 [id number] [facility] 2024-07-08 09:30:00 2024-07-08 10:02:17 Outpatient R LAURIE FITZPATRICK LAURIE [facility] [id number] [facility] 2024-07-08 09:30:00 2024-07-08 10:02:17 Office Visit Laurie Fitzpatrick [facility] 1.2.840.114 350.1.13.10 4.2.7.2.686 [id number] [facility] 2024-07-05 15:30:00 2024-07-05 16:02:46 [id number] 2024-07-05 15:30:00 2024-07-05 16:02:46 Office Visit Edson Bergman [facility] 1.2.840.114 350.1.13.10 4.2.7.2.686 [id number] [facility] 2024-06-02 15:25:46 2024-06-02 23:59:00 Outpatient R [facility] [id number] [facility] 2024-06-02 15:25:46 2024-06-02 23:59:00 [facility] 1.2.840.114 350.1.13.10 4.2.7.2.686 [id number] [facility] 2024-05-24 14:20:00 2024-05-24 14:50:28 Outpatient R NESS [facility] [id number] [facility] 2024-05-24 14:20:00 2024-05-24 14:50:28 [facility] 1.2.840.114 350.1.13.10 4.2.7.2.686 [id number] [facility] 2024-05-20 19:17:00 2024-05-21 00:41:00 Emergency X AMIRAH [facility]ARNARDRE[facility] [id number] [facility] 2024-05-20 19:17:00 2024-05-21 00:41:00 Emergency Harmony Barnard [facility] 1.2.840.114 350.1.13.10 4.2.7.2.686 [id number] [facility] 2024-05-18 10:15:00 2024-05-18 10:30:00 Rn Nicu Visit 2, Adc Lab Edson Bergman [facility] 1.2.840.114 350.1.13.10 4.2.7.2.686 [id number] [facility] 2024-05-18 09:30:00 2024-05-18 10:03:42 Outpatient R EDSON BERGMAN OGECHUKWU [facility] [id number] [facility] 2024-05-18 09:30:00 2024-05-18 10:03:42 Office Visit Edson Bergman [facility] 1.2.840.114 350.1.13.10 4.2.7.2.686 [id number] [facility] 2024-05-14 15:30:00 2024-05-14 15:30:00 Outpatient R EDSON BERGMAN OGECHUKWU [facility] [id number] [facility] 2024-04-05 00:00:00 2024-05-08 18:25:45 Patient Secure Msg Doctor Unassigned, [place] [facility] 1.2.840.114 350.1.13.10 4.2.7.2.686 [id number] [facility] 2024-03-20 00:00:00 2024-04-24 18:09:41 Patient Secure Msg Jordy Sena [facility] MEDICAL OFFICE BUILDING 1.2.840.114 350.1.13.10 4.2.7.2.686 [id number] [facility] 2024-04-24 11:20:00 2024-04-24 11:40:00 Urgent Care Terri Sneed Unknown, Attending [facility] MED[facility] OFF[facility] BU[facility] 1.2.840.114 350.1.13.10 4.2.7.2.686 [id number] [facility] 2024-04-24 11:20:00 2024-04-24 11:20:00 Outpatient R TERRI SNEED [facility] [id number] [facility] 2024-04-21 07:59:52 2024-04-21 07:59:52 Outpatient SFA [facility] [id number] Dinesh Chen 2024-04-19 13:25:06 2024-04-19 13:25:06 Outpatient SFA [facility] [id number] Dinesh Chen 2024-04-19 00:00:00 2024-04-19 00:00:00 Outpatient Visit [facility] [id number] Dinesh Chen 2024-04-07 00:00:00 2024-04-13 13:45:01 Patient Secure Msg Jordy Sena [facility] 1.84.114 350.1.13.10 4.2.7.2.686 [id number] 220 [id number] [facility] 2024-04-07 00:00:00 2024-04-07 20:58:06 Telephone Jordy Sena [facility] 1.84.114 350.1.13.10 4.2.7.2.686 [id number] [facility] 2024-04-05 15:00:00 2024-04-05 15:15:00 Rn Nicu Visit Lab, Abel Pepper Jaida [facility] 1.840.114 350.1.13.10 4.2.7.2.686 [id number] [facility] 2024-04-05 14:30:00 2024-04-05 14:56:15 Outpatient R JAIDA JORDY [facility] [id number] [facility] 2024-04-05 14:30:00 2024-04-05 14:56:15 Office Visit Jaida [facility] 1.840.114 350.1.13.10 4.2.7.2.686 [id number] [facility] 2024-03-19 16:00:00 2024-03-19 16:10:25 Outpatient R JAIDA JORDY [facility] [id number] [facility] 2024-03-19 16:00:00 2024-03-19 16:10:25 Rn Nicu Visit 2, [facility] 1.840.114 350.1.13.10 4.2.7.2.686 [id number] [facility] 2024-03-17 00:00:00 2024-03-17 00:00:00 Telephone Jordy Sena [facility] IS[facility]?SYLVIA [facility] MEDICAL OFFICE BUILDING 1.0.114 350.1.13.10 4.2.7.2.686 [id number] [facility] 2023-11-07 00:00:00 2023-11-07 00:00:00 Telephone Jordy Sena [facility] OFF[facility] 1.0.114 350.1.13.10 4.2.7.2.686 [id number] [facility] 2023-11-05 00:00:00 2023-11-05 00:00:00 Refill Jordy Sena K[facility]em [facility] MED[facility] OFF[facility]ILD[facility] 1.0.114 350.1.13.10 4.2.7.2.686 [id number] 220 [id number] [facility] 2023-10-28 09:40:00 2023-10-28 10:11:26 Outpatient R JUAN GILMAN [facility] [id number] [facility] 2023-10-28 09:40:00 2023-10-28 10:11:26 Urgent Care Juan Gilman Unknown, Attending [facility] MED[facility] OFF[facility]ILD[facility] 1..114 350.1.13.10 4.2.7.2.686 [id number] 370 [id number] [facility] 2023-10-14 09:00:00 2023-10-14 09:00:00 Rn Nicu Visit Lab, Cuba Kim [facility] OFF[facility]ILD[facility] 1..114 350.1.13.10 4.2.7.2.686 [id number] [facility] 2023-10-14 09:00:00 2023-10-14 08:50:40 Outpatient R CUBA CHAVEZ [facility] [id number] [facility] 2023-10-14 00:00:00 2023-10-14 00:00:00 Patient Secure Msg Jordy SenaKareem [facility] 1.114 350.1.13.10 4.2.7.2.686 [id number] [facility] 2023-10-06 13:30:00 2023-10-06 14:24:58 Outpatient R JAIDA JORDY [facility] [id number] [facility] 2023-10-06 13:30:00 2023-10-06 14:00:00 Office Visit Jordy Sena [facility] MED[facility] OFF[facility] BUILDING 1.114 350.1.13.10 4.2.7.2.686 [id number] 220 [id number] [facility] 2023-10-06 00:00:00 2023-10-06 00:00:00 Orders Only Doctor Unassigned, [place] [facility] 1.114 350.1.13.10 4.2.7.2.686 [id number] [facility] 2023-10-02 00:00:00 2023-10-02 00:00:00 Telephone Fuentes Walsh [facility] MEDICAL OFFICE BUILDING 1.114 350.1.13.10 4.2.7.2.686 [id number] 220 [id number] [facility] 2023-09-27 00:00:00 2023-09-27 00:00:00 RefTherese Arenas [facility] MED[facility] OFF[facility]ILD[facility] 1.114 350.1.13.10 4.2.7.2.686 [id number] [facility] 2023-03-29 10:03:52 2023-03-29 10:03:52 Outpatient [facility] [id number] Dinesh Chen 2023-03-26 10:15:00 2023-03-26 16:27:29 Outpatient R MEREDITH VILLALTA [facility] [id number] [facility] 2023-03-26 10:15:00 2023-03-26 16:27:29 [facility] 1..840.114 350.1.13.10 4.2.7.2.686 [id number] [facility] 2023-03-25 16:07:53 2023-03-25 16:07:53 Outpatient SFA [facility] [id number] Dinesh Chen 2023-03-21 13:10:52 2023-03-21 23:59:00 Hospital Encounter [facility] 1.2.840.114 350.1.13.10 4.2.7.2.686 [id number] [facility] 2023-03-21 13:03:55 2023-03-21 13:09:00 Outpatient R DINAH HOROWITZ [facility] [id number] [facility] 2023-03-21 13:03:55 2023-03-21 13:09:00 Hospital Encounter [facility] 1.2.840.114 350.1.13.10 4.2.7.2.686 [id number] [facility] 2023-03-21 00:00:00 2023-03-21 00:00:00 [facility] 1..840.114 350.1.13.10 4.2.7.2.686 [id number] [facility] 2023-03-21 00:00:00 2023-03-21 00:00:00 Patient Secure Msg Doctor Unassigned, [place] [facility]ILD[facility] 1.840.114 350.1.13.10 4.2.7.2.686 [id number] [facility] 2023-03-20 00:00:00 2023-03-20 00:00:00 Telephone Simone Li Dimitri [facility] MED[facility] OFF[facility] BUILD[facility] 1.84.114 350.1.13.10 4.2.7.2.686 [id number] [facility] 2023-02-27 18:20:00 2023-02-27 19:22:35 Outpatient ABBY KOTHARI III [facility] [id number] [facility] 2023-02-27 18:20:00 2023-02-27 18:40:00 Urgent Care Abby Owens Unknown, Attending [facility] MEDICAL OFFICE BUILDING 1.84.114 350.1.13.10 4.2.7.2.686 [id number] [facility] 2023-02-27 00:00:00 2023-02-27 00:00:00 Orders Only Doctor Unassigned, [place] [facility] 1.2840.114 350.1.13.10 4.2.7.2.686 [id number] [facility] 2023-02-01 09:10:00 2023-02-01 09:10:00 Outpatient SFA [facility] [id number] Dinesh Chen 2022-11-18 16:00:00 2022-11-18 16:20:00 Urgent Care Juan Gilman Unknown, Attending [facility] MEDICAL OFFICE BUILDING 1.840.114 350.1.13.10 4.2.7.2.686 [id number] [facility] 2022-11-18 16:00:00 2022-11-18 16:00:00 Outpatient R JUAN GILMAN [facility] [id number] [facility] 2022-11-14 16:06:52 2022-11-14 16:06:52 Outpatient SFA [facility] [id number] Dinesh Chen 2022-11-14 00:00:00 2022-11-14 00:00:00 Outpatient Visit [id number] 2022-09-17 00:00:00 2022-09-17 00:00:00 Case Management Chaya Marquez 1.2.840.114 350.1.13.10 4.2.7.2.686 [id number] [facility] 2022-08-24 00:00:00 2022-08-24 00:00:00 Outpatient Visit [id number] 2022-07-01 09:00:00 2022-07-01 09:00:00 Outpatient TODD MANZANO [facility] [id number] [facility] 2022-06-19 00:00:00 2022-06-19 00:00:00 Orders Only Doctor Unassigned, [place] [facility] 1.2.840.114 350.1.13.10 4.2.7.2.686 [id number] [facility] 2022-06-07 13:30:00 2022-06-07 13:59:32 Outpatient R MEREDITH VILLALTA [facility] [id number] [facility] 2022-06-07 13:30:00 2022-06-07 13:59:32 Office Visit Clinic, Neurosurger y Resident Pawan, [facility] 1.2.840.114 350.1.13.10 4.2.7.2.686 [id number] [facility] 2022-06-07 00:00:00 2022-06-07 00:00:00 Letter (Out) Satya Rosarioyulissa Camejo [facility] 1.2840.114 350.1.13.10 4.2.7.2.686 [id number] [facility] 2022-05-30 00:00:00 2022-05-30 00:00:00 Telephone Meredith Villalta [facility] MEDICAL OFF[facility] BUILDING 1.2840.114 350.1.13.10 4.2.7.2.686 [id number] [facility] 2022-05-28 00:00:00 2022-05-28 00:00:00 Transition of Care Mela [facility] 1.2840.114 350.1.13.10 4.2.7.2.686 [id number] [facility] 2022-05-27 00:00:00 2022-05-27 00:00:00 Patient Secure Msg Doctor Unassigned, [place] [facility] 1.2840.114 350.1.13.10 4.2.7.2.686 [id number] [facility] 2022-05-23 20:24:00 2022-05-26 16:00:00 Inpatient X MEREDITH VILLALTA [facility] Y[facility] [id number] [facility] 2022-05-23 20:24:00 2022-05-26 16:00:00 Hospital En[facility] 1.2840.114 350.1.13.10 4.2.7.2.686 [id number] [facility] 2022-05-24 11:54:00 2022-05-24 14:30:00 Surgery Meredith Villalta [facility] 1..840.114 350.1.13.10 4.2.7.2.686 [id number] [facility] 2022-05-23 20:24:00 2022-05-23 20:24:00 Outpatient X MEREDITH VILLALTA [facility] [id number] [facility] 2022-05-23 00:00:00 2022-05-23 00:00:00 Telephone Stanton [facility] OFFICE [facility] 1..840.114 350.1.13.10 4.2.7.2.686 [id number] [facility] 2022-05-23 00:00:00 2022-05-23 00:00:00 Telephone Simone Li [facility] 1.2.840.114 350.1.13.10 4.2.7.2.686 [id number] [facility] 2022-05-22 11:30:00 2022-05-22 23:59:00 Outpatient SIMONE HOWARD HOWARD [facility] [id number] [facility] 2022-05-22 11:30:00 2022-05-22 23:59:00 Outpatient SIMONE HOWARD HOWARD [facility] [id number] [facility] 2022-05-22 10:22:49 2022-05-22 23:59:00 Hospital Encounter Simone Li Jennifer S. Thomas, Justin K [facility] 1.2.840.114 350.1.13.10 4.2.7.2.686 [id number] [facility] 2022-05-20 14:00:00 2022-05-20 14:00:00 Outpatient KOLE SEAY [facility] [id number] [facility] 2022-05-20 14:00:00 2022-05-20 14:00:00 Outpatient KOLE SEAY [facility] [id number] [facility] 2022-04-29 14:40:00 2022-04-29 15:13:05 Outpatient R JOHNNIE [facility] [id number] [facility] 2022-04-29 14:40:00 2022-04-29 15:13:05 Urgent Care Johnnie [facility] MEDICAL OFFICE BUILDING 1..840.114 350.1.13.10 4.2.7.2.686 [id number] [facility] 2022-04-29 12:00:00 2022-04-29 12:00:00 [facility] [id number] [facility] 2022-04-22 14:20:00 2022-04-22 16:00:54 Outpatient R SIMONE LI HOWARD [facility] [id number] [facility] 2022-04-22 14:20:00 2022-04-22 16:00:54 Office Visit Simone Li [facility] 1..840.114 350.1.13.10 4.2.7.2.686 [id number] [facility] 2022-04-22 00:00:00 2022-04-22 00:00:00 Orders Only Doctor Unassigned, [place] [facility] 1..840.114 350.1.13.10 4.2.7.2.686 [id number] [facility] 2022-03-22 13:00:00 2022-03-22 13:00:00 Outpatient R THERESE LOPEZ [facility] [id number] [facility] 2022-02-27 15:00:00 2022-02-27 15:00:00 Outpatient R ALESHIA DONALDSON [facility] [id number] [facility] 2022-02-16 00:00:00 2022-02-16 00:00:00 Refill John Lorenz [facility] 1..840.114 350.1.13.10 4.2.7.2.686 [id number] 370 [id number] [facility] 2022-01-22 17:38:00 2022-01-22 19:06:00 Emergency X LATONYA WATKINS [facility] E[facility] [id number] [facility] 2022-01-22 17:38:00 2022-01-22 19:06:00 Emergency Latonya Watkins [facility] 1..840.114 350.1.13.10 4.2.7.2.686 [id number] [facility] 2022-01-20 13:40:00 2022-01-20 13:40:00 Urgent Care John Lorenz [facility] MEDICAL OFFICE BUILDING 1..840.114 350.1.13.10 4.2.7.2.686 [id number] 370 [id number] [facility] 2022-01-20 13:40:00 2022-01-20 12:26:37 Outpatient R NICK MICHELLE [facility] [id number] [facility] 2022-01-19 00:00:00 2022-01-19 00:00:00 Telephone Mary Carmen Tolentino [facility] 1..840.114 350.1.13.10 4.2.7.2.686 [id number] [facility] 2022-01-18 19:30:00 2022-01-18 19:45:00 Laboratory Only Only, Ang Db Test Jody Smart [facility] 1.84.114 350.1.13.10 4.2.7.2.686 [id number] [facility] 2022-01-18 19:30:00 2022-01-18 19:30:00 Outpatient JODY LONDON [facility] [id number] [facility] 2022-01-14 00:00:00 2022-01-14 00:00:00 Nurse Triage Ingrid Branch [facility] 1.114 350.1.13.10 4.2.7.2.686 [id number] [facility] 2021-11-20 09:00:00 2021-11-20 09:00:00 Outpatient DEANDRE COLE [facility] [id number] [facility] 2021-11-18 00:00:00 2021-11-18 00:00:00 Nurse Triage Rhoda Lynn [facility] 1..114 350.1.13.10 4.2.7.2.686 [id number] [facility] 2021-10-25 21:55:00 2021-10-26 02:33:00 Emergency X JAMESHARMONY ERVIN [facility] ERT [id number] [facility] 2021-10-25 21:55:00 2021-10-26 02:33:00 [facility]..114 350.1.13.10 4.2.7.2.686 [id number] [facility] 2021-10-25 00:00:00 2021-10-25 00:00:00 Orders Only Doctor Unassigned, [place] [facility] 1.84.114 350.1.13.10 4.2.7.2.686 [id number] [facility] 2021-10-24 00:00:00 2021-10-24 00:00:00 Telephone Kelechi [facility] SURGICAL SPECIALTI JONATHAN THOMAS 1.2840.114 350.1.13.10 4.2.7.2.686 [id number] [facility] 2021-10-20 20:00:00 2021-10-20 20:37:00 Outpatient R KELECHI [facility] [id number] [facility] 2021-10-20 19:54:07 2021-10-20 20:37:00 Urgent Care Kelechi [facility] MEDICAL OFFICE BUILDING 1.2.840.114 350.1.13.10 4.2.7.2.686 [id number] [facility] 2021-10-08 00:00:00 2021-10-08 00:00:00 [facility] 1.840.114 350.1.13.10 4.2.7.2.686 [id number] [facility] 2021-09-25 00:00:00 2021-09-25 00:00:00 Patient Secure Msg Lopez [facility] MEDICAL OFFICE BUILDING 1..840.114 350.1.13.10 4.2.7.2.686 [id number] [facility] 2021-09-21 11:36:49 2021-09-21 11:51:49 Rn Nicu Visit Lab, Abel - Evgeny AbelCritical access hospital[facility] Medical Office Building 1..840.114 350.1.13.10 4.2.7.2.686 [id number] [facility] 2021-09-21 11:30:00 2021-09-21 11:34:[address] [facility] [id number] [facility] 2021-09-21 11:04:06 2021-09-21 11:34:53 [facility] 1.2.840.114 350.1.13.10 4.2.7.2.686 [id number] [facility] 2021-09-14 11:00:00 2021-09-14 11:00:00 [facility] [id number] [facility] 2021-09-13 00:00:00 2021-09-13 00:00:00 [facility] 1.2.840.114 350.1.13.10 4.2.7.2.686 [id number] [facility] 2021-09-10 14:30:00 2021-09-10 14:30:00 Outpatient R JAMIE LOCK [facility] [id number] [facility] 2021-08-21 14:45:00 2021-08-21 14:45:00 Outpatient R INÉS BOUCHER [facility] [id number] Maurilio barry [facility] 2021-08-13 09:30:00 2021-08-13 09:30:00 Outpatient R ASHVIN [facility] [id number] [facility] 2021-08-13 00:00:00 2021-08-13 00:00:00 Refill Ashvin [facility]?Sylvia dee Medical Office Building 1.2.840.114 350.1.13.10 4.2.7.2.686 [id number] [facility] 2021-08-10 13:30:00 2021-08-10 13:30:00 Outpatient R WILVER ROSARIO [facility] [id number] [facility] 2021-08-10 00:00:00 2021-08-10 00:00:00 Telephone Ashvin [facility] Yumi dee Medical Office Building 1.2840.114 350.1.13.10 4.2.7.2.686 [id number] [facility] 2021-08-09 00:00:00 2021-08-09 00:00:00 Nurse Triage [facility] 1.2840.114 350.1.13.10 4.2.7.2.686 [id number] [facility] 2021-08-09 00:00:00 2021-08-09 00:00:00 [facility] 1.20.114 350.1.13.10 4.2.7.2.686 [id number] [facility] 2021-08-08 12:00:00 2021-08-08 12:00:00 Outpatient WILVER MCKEON [facility] [id number] [facility] 2021-08-06 00:00:00 2021-08-06 00:00:00 [facility] 1.0.114 350.1.13.10 4.2.7.2.686 [id number] [facility] 2021-08-06 00:00:00 2021-08-06 00:00:00 [facility] 1.840.114 350.1.13.10 4.2.7.2.686 [id number] [facility] 2021-08-05 00:00:00 2021-08-05 00:00:[address] [facility] 1.2840.114 350.1.13.10 4.2.7.2.686 [id number] [facility] 2021-08-05 00:00:00 2021-08-05 00:00:00 Jose Jamie Lock [facility] [place] [facility] 1..114 350.1.13.10 4.2.7.2.686 [id number] [facility] 2021-07-29 00:00:00 2021-07-29 00:00:00 [facility]..114 350.1.13.10 4.2.7.2.686 [id number] 092 [id number] [facility] 2021-07-29 00:00:00 2021-07-29 00:00:00 Telephone [facility] 1..114 350.1.13.10 4.2.7.2.686 [id number] [id number] [facility] 2021-07-27 00:00:00 2021-07-27 00:00:00 Patient Secure Msg Doctor Unassigned, [place] [facility] 1..114 350.1.13.10 4.2.7.2.686 [id number] [facility] 2021-07-25 16:16:45 2021-07-25 16:46:45 Office Visit Manju Ferrera [facility] 1..114 350.1.13.10 4.2.7.2.686 [id number] [id number] [facility] 2021-07-25 16:16:45 2021-07-25 16:46:45 Office Visit Manju Ferrera [facility] 1..114 350.1.13.10 4.2.7.2.686 [id number] [facility] 2021-07-25 16:30:00 2021-07-25 16:30:00 Outpatient SIMONE [facility]ARD [facility] [id number] [facility] 2021-07-19 00:00:00 2021-07-19 00:00:00 Refill Ashvin [facility] 1.840.114 350.1.13.10 4.2.7.2.686 [id number] 220 [id number] [facility] 2021-07-19 00:00:00 2021-07-19 00:00:00 Refill Ashvin [facility] 1.114 350.1.13.10 4.2.7.2.686 [id number] 220 [id number] [facility] 2021-07-10 01:55:00 2021-07-10 03:10:00 Emergency LaceyRomulo duenas R [facility] 1.114 350.1.13.10 4.2.7.2.686 [id number] [facility] 2021-05-29 10:54:04 2021-05-29 11:14:04 Urgent Care Provider, [facility] Office Building One ..114 350.1.13.10 4.2.7.2.686 [id number] [facility] 2021-05-29 11:00:00 2021-05-29 11:00:00 Outpatient CORNELL AL [facility] [id number] [facility] 2021-05-23 00:00:00 2021-05-23 00:00:00 Patient Secure Msg Doctor Unassigned, [place] [facility] 1.114 350.1.13.10 4.2.7.2.686 [id number] [facility] 2021-05-08 00:00:00 2021-05-08 00:00:00 Telephone [facility] 1.2.840.114 350.1.13.10 4.2.7.2.686 [id number] [id number] [facility] 2021-05-05 00:00:00 2021-05-05 00:00:00 Telephone [facility] 1.2.840.114 350.1.13.10 4.2.7.2.686 [id number] [id number] [facility] 2021-05-04 00:00:00 2021-05-04 00:00:00 Transition of Care Matson Leena 1.2.840.1 79087.1.1 3.104.2.7 [id number] [facility] 2021-05-01 13:39:00 2021-05-03 18:30:00 Hospital Encounter Dale Wallace Elena 1.2.840.1 91184.1.1 3.104.2.7 .3.494351 .8 [id number] [facility] 2021-05-01 00:00:00 2021-05-01 00:00:00 EXT [facility] OP Renea Keller EXT OKRDP LOCATION 1.2.840.114 350.1.13.58 9.2.7.2.686 [id number] [facility] 2021-05-01 00:00:00 2021-05-01 00:00:00 Travel 1.2.840.1 42720.1.1 3.104.2.7 .3.825207 .8 1.2.840.114 350.1.13.10 4.2.7.3.698 084.8 [id number] [facility] 2021-05-01 00:00:00 2021-05-01 00:00:00 EXT [facility] OP Renea Keller EXT MSRDP LOCATION 1.2.840.114 350.1.13.58 9.2.7.2.686 [id number] [facility] 2021-04-30 08:50:00 2021-04-30 15:15:00 Emergency Katelyn Lombardi 1.2.840.1 73571.1.1 3.104.2.7 .3.487851 .8 [id number] [facility] 2021-04-30 00:00:00 2021-04-30 00:00:00 Travel 1.2.840.1 30336.1.1 3.104.2.7 .3.843422 .8 1.2.840.114 350.1.13.10 4.2.7.3.698 084.8 [id number] [facility] 2021-04-28 13:21:00 2021-04-28 22:22:00 Emergency Nga Jeffery S 1.2.840.1 44106.1.1 3.104.2.7 .3.552677 .8 [id number] [facility] 2021-04-28 13:21:00 2021-04-28 22:22:00 Emergency X NGA JEFFERY [facility] [id number] [facility] 2021-04-28 00:00:00 2021-04-28 00:00:00 Travel 1.2.840.1 37455.1.1 3.104.2.7 .3.566708 .8 1.2.840.114 350.1.13.10 4.2.7.3.698 084.8 [id number] [facility] 2021-04-27 04:25:00 2021-04-27 07:49:00 Emergency Dinesh Aleman O 1.2.840.1 07492.1.1 3.104.2.7 .3.540315 .8 [id number] [facility] 2021-04-26 14:32:00 2021-04-26 17:38:00 Emergency Latonya Watkins 1.2.840.1 40296.1.1 3.104.2.7 .3.490649 .8 [id number] [facility] 2021-04-26 00:00:00 2021-04-26 00:00:00 Travel 1.2.840.1 47321.1.1 3.104.2.7 .3.703020 .8 1.2.840.114 350.1.13.10 4.2.7.3.698 084.8 [id number] [facility] 2021-04-20 00:00:00 2021-04-20 00:00:00 Telephone Jaqui Doran 1.2.840.1 87144.1.1 3.104.2.7 .3.703560 .8 [id number] [facility] 2021-04-08 11:36:00 2021-04-10 11:14:00 Hospital Encounter Donaldo Landrum 1.2.840.1 18792.1.1 3.104.2.7 .3.558917 .8 [id number] [facility] 2021-04-09 09:00:00 2021-04-09 09:00:00 Outpatient ED ENGEL [facility] [id number] [facility] 2021-04-08 13:48:00 2021-04-08 19:52:00 Anesthesia Event Rodrigo Leo Walt 1.2.840.1 87580.1.1 3.104.2.7 .3.483061 .8 [id number] [facility] 2021-04-08 00:00:00 2021-04-08 00:00:00 Nurse Triage Latosha Ortiz 1.2.840.1 17643.1.1 3.104.2.7 .3.522331 .8 [id number] [facility] 2021-04-08 00:00:00 2021-04-08 00:00:00 Orders Only Doctor Unassigned, [place] 1.2.840.1 65821.1.1 3.104.2.7 .3.775062 .8 [id number] [facility] 2021-04-08 00:00:00 2021-04-08 00:00:00 Travel 1.2.840.1 32622.1.1 3.104.2.7 .3.980113 .8 1.2.840.114 350.1.13.10 4.2.7.3.698 084.8 [id number] [facility] 2021-04-06 10:52:00 2021-04-06 13:55:00 Hospital Encounter Mark Romulo 1.2.840.1 29593.1.1 3.104.2.7 .3.001776 .8 [id number] [facility] 2021-04-06 00:00:00 2021-04-06 00:00:00 Travel 1.2.840.1 26784.1.1 3.104.2.7 .3.078378 .8 1.2.840.114 350.1.13.10 4.2.7.3.698 084.8 [id number] [facility] 2021-03-30 09:00:00 2021-03-30 09:00:00 Outpatient ED ENGEL [facility] [id number] [facility] 2021-03-29 00:00:00 2021-03-29 00:00:00 Telephone XavierRomulo 1.2.840.1 66091.1.1 3.104.2.7 .3.719230 .8 [id number] [facility] 2021-03-27 13:15:00 2021-03-27 13:15:00 Outpatient ED ENGEL [facility] [id number] [facility] 2021-03-27 10:21:35 2021-03-27 11:21:35 Ancillary Procedure Ed Valdez R 1.2.840.1 61657.1.1 3.104.2.7 .3.055093 .8 [id number] [facility] 2021-03-27 08:34:05 2021-03-27 10:32:28 Routine Visit Ed Valdez R 1.2.840.1 42139.1.1 3.104.2.7 .3.707360 .8 [id number] [facility] 2021-03-27 08:01:19 2021-03-27 08:33:20 Rn Nicu Visit Damian Crane R 1.2.840.1 20814.1.1 3.104.2.7 .3.949025 .8 [id number] [facility] 2021-03-27 00:00:00 2021-03-27 00:00:00 Abstract Ed Valdez R 1.2.840.1 60485.1.1 3.104.2.7 .3.696186 .8 [id number] [facility] 2021-03-27 00:00:00 2021-03-27 00:00:00 Travel 1.2.840.1 25635.1.1 3.104.2.7 .3.786954 .8 1.2.840.114 350.1.13.10 4.2.7.3.698 084.8 [id number] [facility] 2021-03-23 09:48:01 2021-03-23 10:48:01 Ancillary Procedure Ed Valdez R 1.2.840.1 77028.1.1 3.104.2.7 .3.562349 .8 [id number] [facility] 2021-03-23 08:06:10 2021-03-23 08:53:07 Routine Visit Ed Valdez Adrienne 1.2.840.1 83515.1.1 3.104.2.7 .3.779667 .8 [id number] [facility] 2021-03-23 08:15:00 2021-03-23 08:15:00 Outpatient R ED VALDEZ [facility] [id number] [facility] 2021-03-23 00:00:00 2021-03-23 00:00:00 Travel 1.2.840.1 11157.1.1 3.104.2.7 .3.268845 .8 1.2.840.114 350.1.13.10 4.2.7.3.698 084.8 [id number] [facility] 2021-03-22 00:00:00 2021-03-22 00:00:00 Case Management Romulo Araya 1.2.840.1 07261.1.1 3.104.2.7 .3.956888 .8 [id number] [facility] 2021-03-19 13:30:00 2021-03-19 13:30:00 Outpatient R [facility] [id number] [facility] 2021-03-19 07:48:20 2021-03-19 12:14:41 Telemedici ne Visit Damian Crane [facility] 1.2.840.1 23964.1.1 3.104.2.7 .3.431449 .8 [id number] [facility] 2021-02-28 00:00:00 2021-02-28 00:00:00 Telephone Ed Valdez Adrienne 1.2.840.1 10145.1.1 3.104.2.7 .3.068722 .8 [id number] [facility] 2021-02-28 00:00:00 2021-02-28 00:00:00 Case Management Leoncio Tavares 1.2.840.1 16600.1.1 3.104.2.7 .3.221297 .8 [id number] [facility] 2021-02-27 08:00:00 2021-02-27 08:00:00 Outpatient ED ENGEL [facility] [id number] [facility] 2021-02-27 00:00:00 2021-02-27 00:00:00 Telephone Leoncio Tavares ..840.1 58933.1.1 3.104.2.7 .3.151239 .8 [id number] [facility] 2021-02-21 07:45:00 2021-02-21 07:45:00 [id number] 2021-02-20 00:00:00 2021-02-20 00:00:00 Patient Outreach Jacek Summers ..840.1 82616.1.1 3.104.2.7 .3.084598 .8 [id number] [facility] 2021-02-19 11:38:40 2021-02-19 14:24:27 Telemedici ne Visit Ed Valdez Shannon M Faculty, [facility] ..840.1 47230.1.1 3.104.2.7 .3.429707 .8 [id number] [facility] 2021-02-19 11:00:00 2021-02-19 11:00:00 Outpatient EDWIGE ENGELVAConrad [facility] [id number] [facility] 2021-02-18 00:00:00 2021-02-18 00:00:00 Nurse Triage Micaela Rosenbaum ..840.1 11632.1.1 3.104.2.7 .3.378291 .8 [id number] [facility] 2021-02-18 00:00:00 2021-02-18 00:00:00 Nurse Triage Ingrid Branch 1.2.840.1 42824.1.1 3.104.2.7 .3.428446 .8 [id number] [facility] 2021-02-14 18:20:00 2021-02-14 18:20:00 Outpatient VIVIENNE JOHNSON [facility] [id number] [facility] 2021-02-14 17:31:45 2021-02-14 17:56:04 Urgent Care Vivienne Hoffmann [facility] 1.2.840.1 77241.1.1 3.104.2.7 .3.073466 .8 [id number] [facility] 2021-02-14 17:20:00 2021-02-14 17:40:00 Laboratory Only Vivienne Hoffmann Lab, [facility] I 1.2840.1 15346.1.1 3.104.2.7 .3.923983 .8 [id number] [facility] 2021-02-14 17:20:00 2021-02-14 17:20:00 Outpatient VIVIENNE JOHNSON [facility] [id number] [facility] 2021-02-14 00:00:00 2021-02-14 00:00:00 Travel 1.2.840.1 29157.1.1 3.104.2.7 .3.325374 .8 1.2.840.114 350.1.13.10 4.2.7.3.698 084.8 [id number] [facility] 2021-02-08 00:00:00 2021-02-08 00:00:00 Orders Only Doctor Unassigned, [place] 1.2.840.1 73408.1.1 3.104.2.7 .3.837854 .8 [id number] [facility] 2021-02-07 14:38:38 2021-02-07 15:29:28 Routine Visit Ed Valdez 1.2.840.1 26843.1.1 3.104.2.7 .3.636609 .8 [id number] [facility] 2021-02-07 14:45:00 2021-02-07 14:45:00 Outpatient R ED VALDEZ [facility] [id number] [facility] 2021-02-07 00:00:00 2021-02-07 00:00:00 Travel 1.2.840.1 63605.1.1 3.104.2.7 .3.965732 .8 1.2.840.114 350.1.13.10 4.2.7.3.698 084.8 [id number] [facility] 2021-02-05 00:00:00 2021-02-05 00:00:00 Abstract Ed Valdez R 1.2.840.1 55470.1.1 3.104.2.7 .3.173495 .8 [id number] [facility] 2021-02-02 13:31:41 2021-02-02 14:01:41 Rn Nicu Visit Blanca Gamez 1.2.840.1 22312.1.1 3.104.2.7 .3.880435 .8 [id number] [facility] 2021-02-02 13:30:00 2021-02-02 13:30:00 Outpatient P [facility] [id number] [facility] 2021-02-02 00:00:00 2021-02-02 00:00:00 Telephone Aleshia Donaldson 1.2.840.1 76732.1.1 3.104.2.7 .3.433080 .8 [id number] [facility] 2021-02-01 10:00:00 2021-02-01 10:00:00 Outpatient R [facility] [id number] [facility] 2021-01-31 00:00:00 2021-01-31 00:00:00 Telephone Valdez, Ed Deleon [facility] TR[facility]ILER [facility] CHILD [facility] 1..114 350.1.13.10 4.2.7.2.686 [id number] 107 [id number] [facility] 2021-01-26 09:58:34 2021-01-26 11:24:10 Routine Visit Aleshia Donaldson [facility] CHILD [facility] 1..114 350.1.13.10 4.2.7.2.686 [id number] 107 [id number] [facility] 2021-01-26 10:00:00 2021-01-26 10:00:00 Outpatient ALESHIA HERZOG [facility] [id number] [facility] 2021-01-23 00:00:00 2021-01-23 00:00:00 Case Management Eulogio Vincent [facility] 1..114 350.1.13.10 4.2.7.2.686 [id number] [facility] 2021-01-12 08:15:00 2021-01-12 08:15:00 Outpatient ED ENGEL [facility] [id number] [facility] 2021-01-08 13:45:00 2021-01-08 13:45:00 Outpatient ED ENGEL [facility] [id number] [facility] 2021-01-01 14:00:00 2021-01-01 14:00:00 Outpatient R JAMIE LOCK [facility] [id number] [facility] 2020-12-25 14:30:12 2020-12-25 15:20:56 Office Visit Faculty, Abel VargasGurjit Vyas [facility]ILD [facility] 1..114 350.1.13.10 4.2.7.2.686 [id number] [facility] 2020-12-25 14:30:00 2020-12-25 14:30:00 Outpatient R GURJIT SUMMERS SHANNON [facility] [id number] [facility] 2020-12-11 09:00:00 2020-12-11 09:00:00 Outpatient R KARLA VALDEZKIM [facility] [id number] [facility] 2020-12-05 00:00:00 2020-12-05 00:00:00 Abstract Ed Valdez [facility]ILD [facility] 1.2.840.114 350.1.13.10 4.2.7.2.686 [id number] [facility] 2020-12-04 13:04:35 2020-12-04 14:19:35 Rn Nicu Visit Ultrasound, Damian Hinojosa [facility]ILD [facility] 1.2.840.114 350.1.13.10 4.2.7.2.686 [id number] [facility] 2020-12-04 13:00:00 2020-12-04 13:00:00 Outpatient P [facility] [id number] [facility] 2020-11-30 00:00:00 2020-11-30 00:00:00 Refill Ashvin [facility] 1.2.840.114 350.1.13.10 4.2.7.2.686 [id number] [facility] 2020-11-30 00:00:00 2020-11-30 00:00:00 Patient Secure Msg [facility] 1.2.840.114 350.1.13.10 4.2.7.2.686 [id number] [facility] 2020-11-27 13:30:00 2020-11-27 13:30:00 Outpatient R [facility] [id number] [facility] 2020-11-16 15:00:00 2020-11-16 15:00:00 Outpatient R [facility] [id number] [facility] 2020-11-11 00:00:00 2020-11-11 00:00:00 Telephone Ed Valdez [facility] 1.2.840.114 350.1.13.10 4.2.7.2.686 [id number] 107 [id number] [facility] 2020-11-05 22:07:00 2020-11-06 01:11:00 Emergency Harmony Barnard [facility] 1.2.840.114 350.1.13.10 4.2.7.2.686 [id number] [facility] 2020-11-05 22:07:00 2020-11-06 01:11:00 Emergency X HARMONY BARNARD [facility] [id number] [facility] 2020-11-05 00:00:00 2020-11-05 00:00:00 Nurse Triage Latosha Ortiz [facility] 1.2.840.114 350.1.13.10 4.2.7.2.686 [id number] [facility] 2020-11-03 00:00:00 2020-11-03 00:00:00 Patient Secure Msg Doctor Unassigned, [place] [facility] CH[facility] 1.2.840.114 350.1.13.10 4.2.7.2.686 [id number] [facility] 2020-11-02 14:00:00 2020-11-02 14:00:00 Outpatient R ED VALDEZ [facility] [id number] [facility] 2020-11-02 12:44:37 2020-11-02 13:13:31 Routine Visit Ed Valdez [facility] TR[facility] 1.2.840.114 350.1.13.10 4.2.7.2.686 [id number] 107 [id number] [facility] 2020-10-31 13:34:07 2020-10-31 14:47:54 Office Visit Inés Boucher [facility] 1.2.840.114 350.1.13.10 4.2.7.2.686 [id number] [facility] 2020-10-31 13:30:00 2020-10-31 13:30:00 Outpatient R [facility] [id number] [facility] 2020-10-31 00:00:00 2020-10-31 00:00:00 Transition of Care Mela [facility] 1.2840.114 350.1.13.10 4.2.7.2.686 [id number] [facility] 2020-10-25 02:42:00 2020-10-29 11:58:00 Hospital Encounter Latonya Watkins Laura J [facility] 1.2840.114 350.1.13.10 4.2.7.2.686 [id number] [facility] 2020-10-25 00:00:00 2020-10-25 00:00:00 Telephone Ed Valdez [facility] 1.2.840.114 350.1.13.10 4.2.7.2.686 [id number] [facility] 2020-10-21 23:41:00 2020-10-24 17:12:00 Hospital Encounter Harmony Barnard Kamakshi [facility] 1.2.840.114 350.1.13.10 4.2.7.2.686 [id number] [facility] 2020-10-23 15:00:00 2020-10-23 15:00:00 Outpatient R [facility] [id number] [facility] 2020-10-21 00:00:00 2020-10-21 00:00:00 Nurse Triage Shorty Vargas Neema [facility] 1.2.840.114 350.1.13.10 4.2.7.2.686 [id number] [facility] 2020-10-20 15:30:00 2020-10-20 18:50:00 Emergency Yun Coronado [facility] 1.2840.114 350.1.13.10 4.2.7.2.686 [id number] [facility] 2020-10-20 18:30:00 2020-10-20 18:30:00 Outpatient R [facility] [id number] [facility] 2020-10-20 00:00:00 2020-10-20 00:00:00 Telephone Ed Valdez [facility] 1.0.114 350.1.13.10 4.2.7.2.686 [id number] 107 [id number] [facility] 2020-10-20 00:00:00 2020-10-20 00:00:00 Orders Only Doctor Unassigned, [place] [facility] 1.2840.114 350.1.13.10 4.2.7.2.686 [id number] [facility] 2020-10-16 14:30:00 2020-10-16 15:00:00 Telemedici ne Visit Faculty, Abel Jo Blanca Culp [facility] 1.2.840.114 350.1.13.10 4.2.7.2.686 [id number] 107 [id number] [facility] 2020-10-16 14:30:00 2020-10-16 14:30:00 Outpatient R [facility] [id number] [facility] 2020-10-09 13:00:00 2020-10-09 13:00:00 Outpatient R [facility] [id number] [facility] 2020-09-27 00:00:00 2020-09-27 00:00:00 Telephone Risk, Ang-Rmchp-N p/High [facility] TR[facility]ER [facility] CHILD [facility] 1.2.840.114 350.1.13.10 4.2.7.2.686 [id number] 107 [id number] [facility] 2020-09-21 00:00:00 2020-09-21 00:00:00 Telephone Risk, Ang-Rmchp-N p/High [facility] CHILD [facility] 1.2840.114 350.1.13.10 4.2.7.2.686 [id number] 107 [id number] [facility] 2020-09-20 08:30:00 2020-09-20 08:30:00 Outpatient R [facility] [id number] [facility] 2020-09-15 00:00:00 2020-09-15 00:00:00 Abstract Bharti Valdezconrad R [facility] CHILD [facility] 1.2840.114 350.1.13.10 4.2.7.2.686 [id number] 107 [id number] [facility] 2020-09-15 00:00:00 2020-09-15 00:00:00 Patient Secure Msg Doctor Unassigned, [place] [facility] CHILD [facility] 1.20.114 350.1.13.10 4.2.7.2.686 [id number] 107 [id number] [facility] 2020-09-14 15:30:00 2020-09-14 15:30:00 Outpatient R [facility] [id number] [facility] 2020-09-14 08:46:13 2020-09-14 09:13:48 Routine Visit Risk, Pily-N p/High Gurjit Summers Cinwanda Smithy [facility] 1.2.840.114 350.1.13.10 4.2.7.2.686 [id number] 107 [id number] [facility] 2020-09-14 08:07:32 2020-09-14 08:37:32 Rn Nicu Visit Ultrasound, Gurjit Gracia [facility] & CHILD [facility] 1.2.840.114 350.1.13.10 4.2.7.2.686 [id number] [facility] 2020-09-14 08:00:00 2020-09-14 08:00:00 Outpatient GURJIT ARAGON SHANNON [facility] [id number] [facility] 2020-09-11 11:00:00 2020-09-11 11:00:00 Outpatient GURJIT ARAGON SHANNON [facility] [id number] [facility] 2020-09-11 00:00:00 2020-09-11 00:00:00 Telephone Faculty, Abel Jo [facility] TR[facility] OILER [facility] & CHILD [facility] 1.2.840.114 350.1.13.10 4.2.7.2.686 [id number] 107 [id number] [facility] 2020-09-08 00:00:00 2020-09-08 00:00:00 Ed Marquez [facility] 1.2.840.114 350.1.13.10 4.2.7.2.686 [id number] 107 [id number] [facility] 2020-09-07 00:00:00 2020-09-07 00:00:00 Telephone Faculty, Abel Jo [facility] TR[facility]ER [facility]ILD [facility] 1.2.840.114 350.1.13.10 4.2.7.2.686 [id number] 107 [id number] [facility] 2020-09-05 00:00:00 2020-09-05 00:00:00 Telephone Ed Valdez [facility] 1..840.114 350.1.13.10 4.2.7.2.686 [id number] 107 [id number] [facility] 2020-09-04 15:30:00 2020-09-04 15:30:00 Outpatient R [facility] [id number] [facility] 2020-09-04 00:00:00 2020-09-04 00:00:00 Patient Secure Msg Doctor Unassigned, [place] [facility] CHILD [facility] 1..840.114 350.1.13.10 4.2.7.2.686 [id number] [facility] 2020-09-01 08:00:00 2020-09-01 08:00:00 Outpatient R ED VALDEZ [facility] [id number] [facility] 2020-08-28 13:00:00 2020-08-28 13:00:00 Outpatient R [facility] [id number] [facility] 2020-08-25 00:00:00 2020-08-25 00:00:00 Telephone Ed Valdez [facility] 1..840.114 350.1.13.10 4.2.7.2.686 [id number] [facility] 2020-08-24 00:00:00 2020-08-24 00:00:00 Telephone Ed Valdez [facility] 1..840.114 350.1.13.10 4.2.7.2.686 [id number] [facility] 2020-08-23 08:39:26 2020-08-23 10:59:06 Initial Visit Ed Valdez [facility] 1.114 350.1.13.10 4.2.7.2.686 [id number] [facility] 2020-08-23 08:00:00 2020-08-23 08:00:00 Outpatient R [facility] [id number] [facility] 2020-08-23 00:00:00 2020-08-23 00:00:00 Orders Only Doctor Unassigned, [place] [facility] 1.114 350.1.13.10 4.2.7.2.686 [id number] [facility] 2020-08-22 07:51:06 2020-08-22 09:54:19 Office Visit Simone Li [facility] 1. 350.1.13.10 4.2.7.2.686 [id number] [facility] 2020-08-22 08:00:00 2020-08-22 08:00:00 Outpatient R SIMONE LI HOWARD [facility] [id number] [facility] 2020-08-22 00:00:00 2020-08-22 00:00:00 Letter (Out) Simone Li [facility] 1. 350.1.13.10 4.2.7.2.686 [id number] [facility] 2020-08-10 00:00:00 2020-08-10 00:00:00 Patient Outreach Kat Ferrer 1.114 350.1.13.10 4.2.7.2.686 [id number] [facility] 2020-08-10 00:00:00 2020-08-10 00:00:00 Patient Secure Msg Doctor Unassigned, [place] [facility] 1.2.840.114 350.1.13.10 4.2.7.2.686 [id number] [facility] 2020-08-09 02:23:14 2020-08-09 05:34:00 Emergency Barno Ocasio [id number] Marcelino Cervantes 2020-08-08 21:23:00 2020-08-09 00:34:00 Emergency Rubia MICHELL RENEA [facility] [address] [facility] 2020-08-08 19:30:00 2020-08-08 20:48:00 Emergency [facility] 1.2.840.114 350.1.13.10 4.2.7.2.686 [id number] [facility] 2020-08-07 06:08:00 2020-08-07 07:14:00 Emergency [facility] 1.2.840.114 350.1.13.10 4.2.7.2.686 [id number] [facility] 2020-08-05 05:31:00 2020-08-05 07:18:00 Emergency Evon Amirahrehan Keyona [facility] 1.2.840.114 350.1.13.10 4.2.7.2.686 [id number] [facility] 2020-08-04 13:39:00 2020-08-04 17:37:00 Emergency Latonya Watkins [facility] 1.2.840.114 350.1.13.10 4.2.7.2.686 [id number] [facility] 2020-08-04 12:52:37 2020-08-04 13:12:37 Urgent Care Provider, [facility] 1.2.840.114 350.1.13.10 4.2.7.2.686 [id number] [facility] 2020-08-04 13:00:00 2020-08-04 13:00:00 [id number] 2020-08-04 00:00:00 2020-08-04 00:00:00 Letter (Out) GeneLakesha ko [facility] 1.114 350.1.13.10 4.2.7.2.686 [id number] [facility] 2020-08-04 00:00:00 2020-08-04 00:00:00 Patient Secure Msg Doctor Unassigned, [place] [facility] CAMPUS 1..114 350.1.13.10 4.2.7.2.686 [id number] [facility] 2020-08-03 09:40:03 2020-08-03 10:41:21 Urgent Care Pob1, Acute Care Clinic [facility] Office Building One 1..114 350.1.13.10 4.2.7.2.686 [id number] [facility] 2020-08-03 10:00:00 2020-08-03 10:00:00 Outpatient R [facility] [id number] [facility] 2020-08-03 00:00:00 2020-08-03 00:00:00 Nurse Triage Berkley Supriya [facility] 1..114 350.1.13.10 4.2.7.2.686 [id number] [facility] 2020-08-03 00:00:00 2020-08-03 00:00:00 Telephone Po, Acute [facility] Office Building One ..114 350.1.13.10 4.2.7.2.686 [id number] [facility] 2020-07-25 13:00:00 2020-07-25 13:00:00 Outpatient R CUBA CHAVEZ [facility] [id number] [facility] 2020-07-18 00:00:00 2020-07-18 00:00:00 [facility] 1.2.840.114 350.1.13.10 4.2.7.2.686 [id number] [facility] 2020-07-17 00:00:00 2020-07-17 00:00:[address] [facility] Surgical Special jonathan Thomas 1.2840.114 350.1.13.10 4.2.7.2.686 [id number] [facility] 2020-07-06 14:30:00 2020-07-06 14:30:00 Outpatient R RUTHANN [facility] [id number] [facility] 2020-07-06 14:09:04 2020-07-06 14:24:04 Office Visit Ruthann [facility] Surgical Specialpatricia Thomas 1.2840.114 350.1.13.10 4.2.7.2.686 [id number] [facility] 2020-07-06 00:00:00 2020-07-06 00:00:00 Letter (Out) Ruthann [facility] Surgical Specialpatricia Thomas 1.2.840.114 350.1.13.10 4.2.7.2.686 [id number] [facility] 2020-04-19 00:00:00 2020-04-19 00:00:00 Orders Only Doctor Unassigned, [place] [facility] 1.2840.114 350.1.13.10 4.2.7.2.686 [id number] [facility] 2020-04-04 00:00:00 2020-04-04 00:00:00 Patient Secure Msg Doctor Unassigned, [place] [facility] 1.2840.114 350.1.13.10 4.2.7.2.686 [id number] [facility] 2020-04-01 11:55:29 2020-04-03 12:56:00 Outpatient X [facility] [id number] [facility]ilio [facility] 2020-04-01 11:55:29 2020-04-03 12:56:00 Emergency Brooks Ezekiel [facility] 1..840.114 350.1.13.10 4.2.7.2.686 [id number] [facility] 2020-03-30 17:26:13 2020-03-30 21:05:00 Emergency Daron HARMONY BARNARD [facility] ERT [id number] [facility] 2020-03-30 17:26:13 2020-03-30 21:05:00 Emergency Yao Sinclair [place] S [facility] 1..840.114 350.1.13.10 4.2.7.2.686 [id number] [facility] 2020-03-20 13:00:00 2020-03-20 13:00:00 Outpatient R CORTEZBHARGAVI [facility] [id number] [facility] 2020-03-20 08:21:22 2020-03-20 08:51:22 Telemedici ne Visit Jakwanda [facility] 1..840.114 350.1.13.10 4.2.7.2.686 [id number] [facility] 2020-03-20 00:00:00 2020-03-20 00:00:00 Telephone Pcp, Patient Does Not Have A [facility] Building 1..840.114 350.1.13.10 4.2.7.2.686 [id number] [facility] 2019-08-20 01:33:00 2019-08-20 03:35:00 Hospital Encounter Laurie Fitzpatrick [facility] 1.2.840.114 350.1.13.10 4.2.7.2.686 [id number] [id number] [facility] 2019-08-20 00:00:00 2019-08-20 00:00:00 Orders Only Doctor Unassigned, [place] [facility] 1.2.840.114 350.1.13.10 4.2.7.2.686 [id number] [facility] 2019-08-13 00:00:00 2019-08-13 00:00:00 Abstract Aleshia Donaldson [facility] 1.2.840.114 350.1.13.10 4.2.7.2.686 [id number] [facility] 2019-08-11 15:12:02 2019-08-11 15:59:30 Rn Nicu Visit Ultrasound, Donaldo Sheets [facility] 1.2840.114 350.1.13.10 4.2.7.2.686 [id number] [facility] 2019-08-04 00:00:00 2019-08-04 00:00:00 Kat Lobo [facility] 1.2.840.114 350.1.13.10 4.2.7.2.686 [id number] [facility] 2019-08-03 00:00:00 2019-08-03 00:00:00 Telephone Risk, Leah p/High [facility] 1.2.840.114 350.1.13.10 4.2.7.2.686 [id number] [facility] 2019-07-29 00:00:00 2019-07-29 00:00:00 Nurse Triage Tong Smith [facility] 1.2.840.114 350.1.13.10 4.2.7.2.686 [id number] [facility] 2019-07-17 00:00:00 2019-07-17 00:00:00 Nurse Triage Mira Perez [facility] 1.2840.114 350.1.13.10 4.2.7.2.686 [id number] [facility] 2019-07-15 14:29:49 2019-07-15 15:01:56 Routine Visit Risk, Ang-Rmchp-N p/High Mary Carmen Lacey [facility] 1.2.840.114 350.1.13.10 4.2.7.2.686 [id number] [facility] 2019-07-15 00:00:00 2019-07-15 00:00:00 Orders Only Doctor Unassigned, [place] [facility] 1.2.840.114 350.1.13.10 4.2.7.2.686 [id number] [facility] 2019-07-08 00:00:00 2019-07-08 00:00:00 Abstract Aleshia Donaldson [facility] 1.840.114 350.1.13.10 4.2.7.2.686 [id number] [facility] 2019-06-30 08:31:45 2019-06-30 09:46:45 Rn Nicu Visit 5, [facility] 1.2840.114 350.1.13.10 4.2.7.2.686 [id number] [facility] 2019-06-30 07:51:20 2019-06-30 08:31:12 Office Visit Christina Barrios [facility] 1.2.840.114 350.1.13.10 4.2.7.2.686 [id number] [facility] 2019-05-03 14:00:00 2019-05-03 14:14:19 Outpatient DAMIAN LYNN [facility] [id number] [facility] 2019-04-05 15:30:00 2019-04-05 14:50:30 Outpatient ADRIENNE YBARRA ALMITA ADRIENNE [facility] [id number] [facility] 2018-07-22 13:40:00 2018-07-22 13:40:00 Appointmen t; GISELLE DANIELS M.D. CARHILL, AUBREY, M.D. [facility] [id number] [place] [facility] 2018-05-13 15:40:00 2018-05-13 15:40:00 Appointmen t; GISELLE DANIELS M.D. CARHILL, AUBREY, M.D. [facility] [id number] [place] [facility] 2017-04-14 15:30:00 2017-04-14 15:30:00 Appointmen t; GISELLE DANIELS M.D. CARHILL, AUBREY, M.D. [facility] [id number] [place] [facility] 2017-04-14 08:30:00 2017-04-14 08:30:00 Appointmen t; GISELLE DANIELS M.D. CARHILL, AUBREY, M.D. [facility] [id number] [place] [facility] 2017-03-03 15:00:00 2017-03-03 15:00:00 Appointmen t; GISELLE DANIELS M.D. CARHILL, AUBREY, M.D. [facility] [id number] [place] [facility] 2016-12-30 13:00:00 2016-12-30 13:00:00 Appointmen t; GISELLE DANIELS M.D. CARHILL, AUBREY, M.D. [facility] [id number] [place] [facility] 2014-05-24 19:02:00 2014-05-24 22:25:00 Emergency Center nullFlavo r [facility] [id number] Ekaterinaelvin taisha Ahsahka Results Test Description Test Time Test Comments Results Result Co mments Source [facility] [id number] 16:53:00* Test Item Value Reference Range Interpretation Comme nts POCT PREG (test code = 1605) Negative On board controls acceptable with C Line (test code = 3574) Yes POCT PREG LOT # (test code = 3575) POCT PREG TEST DATE (test code = 3576) RANDI (test code = RANDI) accurate developme nt and interpretation of all internal controls Lab Interpretation (test code = 16331-3) Normal [facility] Urinalysis w/o Specific [id number] 19:26:00* Test Item Value Reference Range Interpretation [...] = 3257) Negative Negative - Negati ve [facility] [id number] 20:23:00* Test Item Value Reference Range Interpretation Comme nts POCT PREG (test code = 1605) Negative On board controls acceptable with C Line (test code = 3574) Yes POCT PREG LOT # (test code = 3575) POCT PREG TEST DATE (test code = 3576) RANDI (test code = RANDI) accurate developme nt and interpretation of all internal controls [facility] PELVIS COMPLETE WITH [id number] 22:03:20ULTRASOUND PELVIC COMPLETE WITH TRANSVAGINAL Ordering Physician: [...] Doppler flow to the ovaries. No fibroidsidentified [facility]inal[facility] W Specific [id number] 20:38:00* Test Item Value Reference Range Interpretation [...] U APPEAR (test code = 3267) mucus [facility] (TTE)2024-06-03 01:15:52* Test Item Value Reference Range Interpretation Comme nts Height (test code = 2443625795) 65 in Weight (test code = 5076277134) 182 lbs Systolic BP (test code = 6043811099) 113 mmHg Diastolic BP (test code = 4629322542) 66 mmHg Heart Rate (test code = 8774355990) 71 bpm RVOT diameter (test code = 7124637420) 1.98 cm RVOT Proximal Diameter (test code = 8467413234) 2.90 cm Ao root diam (test code = 7310643308) 2.42 cm Aortic root (test code = 0650391010) 2.42 cm Ao root annulus (test code = 9816730921) 2.42 cm BSA (test code = 4395307416) 1.90 m2 LVOT diameter (test code = 5857601121) 1.86 cm LVOT area (test code = 3489229630) 2.70 cm2 LA size (test code = 7990051495) 3.2 cm ACS (test code = 3222436218) 1.93 cm LVIDD (test code = 0944497492) 4.50 cm Left Ventricular End Diastolic Volume by Teichholz Method (test code = 6303484) 92.8 mL IVS (test code = 1866746642) 0.87 cm Interventricular Septum Diastolic Thickness by 2D (test code = 5581835) 0.87 cm LVPWD (test code = 8540047185) 0.80 cm PW (test code = 1027489514) 0.80 cm 0.6-1.1 EF(Teich) (test code = 3964539027) 59.40 % LVIDS (test code = 6745548977) 3.10 cm Left Ventricular End Systolic Volume by Teichholz Method (test code = 5419929) 37.7 mL FS (test code = 3876584788) 31 % EF - 2D (test code = 79448216) 59.40 % PV PEAK VELOCITY (test code = 2772512759) 84.4 cm/s PV peak gradient (test code = 5560617505) 2.8 mmHg MV E-F slope (test code = 5871975800) 44.50 cm/s MV Peak E Massiel (test code = 7391210084) 113.7 cm/s MV valve area p 1/2 method (test code = 6508393484) 3.40 cm2 MV dec slope (test code = 5155660917) 504.10 cm/s2 MV P1/2t max massile (test code = 5785889555) 111.60 cm/s MV Peak A Massiel (test code = 2031889764) 56.6 cm/s E/A ratio (test code = 6699431242) 2.01 ratio LVOT stroke volume (test code = 1156549235) 66.30 cm3 LVOT peak massiel (test code = 5229357749) 126.8 cm/s LVOT mn grad (test code = 0686975318) 2.7 mmHg AV LVOT peak gradient (test code = 6441455294) 6.4 mmHg LVOT peak VTI (test code = 6666123941) 24.3 cm LV V1 mean (test code = 2507107815) 75.00 cm/s Aortic valve mean velocity (test code = 4283782217) 86.3 cm/s Ao peak massiel (test code = 9048409076) 134.7 cm/s Ao VTI (test code = 1482007897) 31.0 cm AV area by cont VTI (test code = 4937869748) 2.1 cm2 AV area peak massiel (test code = 9102916209) 2.6 cm2 Ao max PG (test code = 3387684949) 7.30 mm[Hg] AV peak gradient (test code = 9204285056) 7.3 mmHg AV valve area (test code = 3026256561) 2.14 cm2 AV mean gradient (test code = 1097348712) 3.4 mmHg TR Peak Massiel (test code = 7167311311) 155.6 cm/s Triscuspid Valve Regurgitation Peak Gradient (test code = 1802810924) 9.7 mmHg LAV(MOD-sp4) (test code = 7424441400) 20.60 mL LA Volume Index (BP) (test code = 3062631282) 13.3 mL/m2 LA volume (BP) (test code = 0610474013) 25.2 mL LAV(MOD-sp2) (test code = 4189519405) 28.60 mL A4C EF (test code = 1301764866) 56.30 % EF(sp4-el) (test code = 7013701290) 58.60 % SV(MOD-sp4) (test code = 7296716694) 35.30 mL SV(sp4-el) (test code = 7048208506) 39.40 mL RVOT area (test code = 1138581966) 3.08 cm2 Radiology Study observation (narrative) (test code = 45709-8) RANDI (test code = RANDI) ?Left?Ventricle: Left [...] 2D, color flow Doppler and spectral Doppler. [facility] P[facility]MONARY [id number] 05:30:15PROCEDURE: CT CHEST WITH CONTRAST- CHEST PE [...] osseous lesions are detected.The soft tissues appear normal.[facility] [id number] 02:28:00 * Test Item Value Reference Range Interpretation Comme nts POCT PREG (test code = 1605) Negative On board controls acceptable with C Line (test code = 3574) Yes POCT PREG LOT # (test code = 3575) [id number] POCT PREG TEST DATE ( test code = 3576) 04/03/2025 Lab Interpretation (test cod e = 83995-5) Normal [facility] MOLECULAR [id number] 16:08:01* Test Item Value Reference Range Interpretation Comme nts POCT Molecular FluA (test co de = 29008-0) Negative Negative POCT Molecular FluB (test co de = 15533-3) Negative Negative Lab Interpretation (test cod e = 50480-5) Normal [facility] MOLECULAR [id number] 16:08:01* Test Item Value Reference Range Interpretation Comme nts POCT Molecular FluA (test co de = 49575-8) Negative Negative POCT Molecular FluB (test co de = 51271-4) Negative Negative Lab Interpretation (test cod e = 55743-3) Normal [facility] MOLECULAR [id number] 16:08:01* Test Item Value Reference Range Interpretation Comme nts POCT Molecular FluA (test co de = 57709-7) Negative Negative POCT Molecular FluB (test co de = 58255-1) Negative Negative Lab Interpretation (test cod e = 05789-1) Normal [facility] MOLECULAR [id number] 16:08:01* Test Item Value Reference Range Interpretation Comme nts POCT Molecular FluA (test co de = 87415-2) Negative Negative POCT Molecular FluB (test co de = 30687-2) Negative Negative Lab Interpretation (test cod e = 14314-8) Normal [facility] MOLECULAR [id number] 15:57:54* Test Item Value Reference Range Interpretation Comme nts POCT Molecular Strep (test c ode = 34132-4) Positive Negative A Lab Interpretation (test cod e = 39099-1) Abnormal [facility] MOLECULAR [id number] 15:57:54* Test Item Value Reference Range Interpretation Comme nts POCT Molecular Strep (test c ode = 37745-9) Positive Negative A Lab Interpretation (test cod e = 41433-1) Abnormal [facility] MOLECULAR [id number] 15:57:54* Test Item Value Reference Range Interpretation Comme nts POCT Molecular Strep (test c ode = 33198-1) Positive Negative A Lab Interpretation (test cod e = 25853-3) Abnormal [facility] MOLECULAR [id number] 15:57:54* Test Item Value Reference Range Interpretation Comme nts POCT Molecular Strep (test c ode = 24601-3) Positive Negative A Lab Interpretation (test cod e = 30008-8) Abnormal [facility] CenterTHYROID STIMULATING [id number] 20:34:59 * Test Item Value Reference Range Interpretation Comme nts TSH (test code = 2593416200) 0.04 See_Comment L [Automated messa ge] The system which generated this result transmitted reference range: 0.45 - 4.70 mIU/L. The reference range was not used to interpret this result as normal/abnormal. Lab Interpretation (test code = 11231-1) Abnormal [facility] CenterT4 [id number] 20:20:34* Test Item Value Reference Range Interpretation Comme nts FREE T4 (test code = 7088359993) 1.80 See_Comment [Automated messa ge] The system which generated this result transmitted reference range: 0.78 - 2.20 ng/dL:. The reference range was not used to interpret this result as normal/abnormal. Lab Interpretation (test code = 66044-4) Normal [facility], THIRD [id number] 02:18:45* Test Item Value Reference Range Interpretation Comme nts TSH, THIRD GENERATION (test code = 2821) 0.591 UIU/ML 0.400-4.100 [facility] has impo rtant pathology staff changes effective 01/29/2023. New pathology staff will provide uninterrupted, excellent patient care and clinical consultation. See URL: [email or web address]. UNLESS OTHERWISE INDICATED, ALL TESTING PERFORMED AT [facility] [address] [place] [address] [employer] PROFESSOR: LAVONNE HENRY M.D. CLIA NUMBER [id number] [facility] [place] [place]. [id number] TSH, THIRD [id number] 00:00:00* Test Item Value Reference Range Interpretation Comme nts TSH, THIRD GENERATION (test code = 2821) 0.591 UIU/ML Dinesh ChenHEMOGLOBIN [id number] 04:24:11* Test Item Value Reference Range Interpretation Comme nts HEMOGLOBIN A1c (test code = 35421) 5.2 % 4.2-5.6 HEMOGLOBIN [id number] 00:00:00* Test Item Value Reference Range Interpretation Comme nts HEMOGLOBIN A1c (test code = 71253) 5.2 % Dinesh ChenPOCT URINALYSIS W SPECIFIC [id number] 00:08:00* Test Item Value Reference Range Interpretation [...] clear Lab Interpretation (test cod e = 41492-4) Normal [facility], RFLX [id number] 04:17:36 * Test Item Value Reference Range Interpretation Comme nts HIV 1/2 4TH GEN, RFLX CONF ( test code = 3514) NON-REACTIVE NON-REACTIVE [id number] 03:39:54* Test Item Value Reference Range Interpretation Comme nts RPR RESULT (test code = 3501) NON-REACTIVE NON-REACTIVE RPR TITER (test code = 3500) NOT INDIC. TITER NOT INDIC. [facility] has importan t pathology staff changes effective 01/29/2023. New pathology staff will provide uninterrupted, excellent patient care and clinical consultation. See URL: [email or web address]. UNLESS OTHERWISE INDICATED, ALL TESTING PERFORMED AT [facility] [address] [place] [address] [employer] PROFESSOR: FIOR STOCK M.D. [place] NUMBER [id number] [facility] [place] [place]. [id number] HIV AB/AG COMBO RFLX [id number] 00:00:00* Test Item Value Reference Range Interpretation Comme nts HIV 1/2 4TH GEN, RFLX CONF ( test code = 3514) NON-REACTIVE Dinesh Vinson [id number] 00:00:00* Test Item Value Reference Range Interpretation Comme nts RPR RESULT (test code = 3501) NON-REACTIVE RPR TITER (test code = 3500) NOT INDIC. TITER Dinesh Vinson GustavoCHLAMYDIA, NAAT, [id number] 20:58:03* Test Item Value Reference Range Interpretation Comme nts CHLAMYDIA, NAAT, URINE (test code = 88726) NEGATIVE NEGATIVE Testing is perfo rmed with Ronel KAROLINE 6800/8800 systems usingreal-time polymerase chain reaction (PCR) method. A negative result does not exclude low level infection, specimensampling error, or collection error. GONORRHEA, NAAT, [id number] 20:58:03* Test Item Value Reference Range Interpretation Comme nts GONORRHEA, NAAT, URINE (test code = 70667) NEGATIVE NEGATIVE Testing is perfo rmed with Ronel KAROLINE 6800/8800 systems usingreal-time polymerase chain reaction (PCR) method. A negative result does not exclude low level infection, specimensampling error, or collection error. CULTURE, [id number] 08:59:23SPECIMEN NUMBER: [id number] CULTURE, URINE SPECIMEN NUMBER: [id number] SOURCE: URINE REPORT STATUS: FINAL FINAL REPORT: 02/03/2023 10-50,000 CFU/ML MIXED MICROBIAL POPULATION PRESENT, NO PREDOMINATING ORGANISMS;PROBABLE CONTAMINANTS.CULTURE, [id number] 00:00:00 * Test Item Value Reference Range Interpretation Comme nts CULTURE, URINE (test code = 15504) SPECIMEN NUMBER: [id number] Dinesh ChenCHLAMYDIA, AMPLIFIED, [id number] 00:00:00* Test Item Value Reference Range Interpretation Comme nts CHLAMYDIA, NAAT, URINE (test code = 60098) NEGATIVE Dinesh ChenGC, AMPLIFIED, [id number] 00:00:00* Test Item Value Reference Range Interpretation Comme nts GONORRHEA, NAAT, URINE (test code = 46821) NEGATIVE Dinesh ChenPOCT MOLECULAR [id number] 22:29:53* Test Item Value Reference Range Interpretation Comme nts POCT Molecular FluA (test co de = 85367-2) Positive Negative A Lab Interpretation (test cod e = 01687-5) Abnormal [facility] [id number] 22:25:50* Test Item Value Reference Range Interpretation Comme nts POCT Molecular Strep (test c ode = 51712-8) Positive Negative A Lab Interpretation (test cod e = 42231-4) Abnormal [facility], THIRD [id number] 04:18:40* Test Item Value Reference Range Interpretation Comme nts TSH, THIRD GENERATION (test code = 2821) 2.920 UIU/ML 0.400-4.100 UNLESS OTHERWISE INDICATED, ALL TESTING PERFORMED AT[facility] [address] [place] [address] [employer] PROFESSOR: FIOR STOCK M.D. CLIA NUMBER [id number] [facility] [place] [place]. [id number] TSH, THIRD [id number] 00:00:00* Test Item Value Reference Range Interpretation Comme nts JOVANI, THIRD GENERATION (test code = 2821) 2.920 UIU/ML Dinesh Muñoz, THIRD [id number] 02:32:58* Test Item Value Reference Range Interpretation Comme nts JOVANI, THIRD GENERATION (test code = 2821) 0.474 UIU/ML 0.400-4.100 TSH, THIRD [id number] 00:00:00* Test Item Value Reference Range Interpretation Comme nts TSH, THIRD GENERATION (test code = 2821) 0.474 UIU/ML Dinesh Muñoz, THIRD [id number] 00:00:00* Test Item Value Reference Range Interpretation Comme nts JOVANI, THIRD GENERATION (test code = 2821) 0.474 UIU/ML CBC W/AUTO DIFF WITH [id number] 03:07:57* Test Item Value Reference Range Interpretation [...] 0.00-0.10 ABS NUCLEATED RBCS (test code = 51156) 0.00 K/UL 0.00-0.11 UNLESS OTHER LUNDY INDICATED, ALL TESTING PERFORMED [facility] [address] [place] [address] [employer] PROFESSOR: FIOR STOCK M.D. CLIA NUMBER [id number] [facility] [place] [place]. [id number] CBC W/AUTO [id number] 00:00:00* Test Item Value Reference Range Interpretation [...] ABS NUCLEATED RBCS (test cod e = 46861) 0.00 K/UL [facility] W/AUTO [id number] 00:00:00* Test Item Value Reference Range Interpretation [...] ABS NUCLEATED RBCS (test cod e = 51876) 0.00 K/UL VAGINAL PATHOGENS DNA [id number] 14:38:56* Test Item Value Reference Range Interpretation Comme nts YIMI SPECIES (test code = 39096) NEGATIVE NEGATIVE G. VAGINALIS (test code = 89363) POSITIVE NEGATIVE A T. VAGINALIS (test code = 07662) NEGATIVE NEGATIVE HIV 1/2 4TH GEN, RFLX [id number] 03:14:46* Test Item Value Reference Range Interpretation Comme nts HIV 1/2 4TH GEN, RFLX CONF ( test code = 3514) NON-REACTIVE NON-REACTIVE VAGINAL PATHOGENS DNA [id number] 00:00:00* Test Item Value Reference Range Interpretation Comme nts YIMI SPECIES (test code = 71291) NEGATIVE G. VAGINALIS (test code = 93793) POSITIVE T. VAGINALIS (test code = 82505) NEGATIVE Dinesh F AustinVAGINAL PATHOGENS DNA [id number] 00:00:00* Test Item Value Reference Range Interpretation Comme nts YIMI SPECIES (test code = 71081) NEGATIVE G. VAGINALIS (test code = 46710) POSITIVE T. VAGINALIS (test code = 51999) NEGATIVE HIV 1/2 4TH GEN, RFLX [id number] 00:00:00* Test Item Value Reference Range Interpretation Comme nts HIV 1/2 4TH GEN, RFLX CONF ( test code = 3514) NON-REACTIVE VAGINAL PATHOGENS DNA [id number] 00:00:00* Test Item Value Reference Range Interpretation Comme nts YIMI SPECIES (test code = 52959) NEGATIVE G. VAGINALIS (test code = 75954) POSITIVE T. VAGINALIS (test code = 13054) NEGATIVE HIV 1/2 4TH GEN, RFLX [id number] 00:00:00* Test Item Value Reference Range Interpretation Comme nts HIV 1/2 4TH GEN, RFLX CONF ( test code = 3514) NON-REACTIVE HIV 1/2 4TH GEN, RFLX [id number] 00:00:00* Test Item Value Reference Range Interpretation Comme nts HIV 1/2 4TH GEN, RFLX CONF ( test code = 3514) NON-REACTIVE Dinesh F [id number] 23:42:09* Test Item Value Reference Range Interpretation Comme nts RPR RESULT (test code = 3501) NON-REACTIVE NON-REACTIVE RPR TITER (test code = 3500) NOT INDIC. TITER NOT INDIC. UNLESS OTHERWISE INDICATED, ALL TESTING PERFORMED ATCLINICAL PATHOLOGY [employer] [address] [place] [address] [employer] PROFESSOR: FIOR STOCK M.D. [place] NUMBER [id number] [facility] [place] [place]. [id number] CT/NG, NAAT, [id number] 16:24:59* Test Item Value Reference Range Interpretation Comme nts GONORRHEA, NAAT (test code = 39082) NEGATIVE NEGATIVE IMPORTANT NO LILLY: SEE ANNOUNCEMENT AT [email or web address] OnlineobasUrineKit Note: Assay methodology is nucleic acid amplification by onshore diver mediated amplification (TMA) utilizing the Aptima Combo 2 Assay. CHLAMYDIA, NAAT (test code = 27358) NEGATIVE NEGATIVE IMPORTANT NO LILLY: SEE ANNOUNCEMENT AT [email or web address] Rods and CustomssUrineKit Note: Assay methodology is nucleic acid amplification by onshore diver mediated amplification (TMA) utilizing the Aptima Combo [address] Assay. CT/NG, TMA, [id number] 00:00:00* Test Item Value Reference Range Interpretation Comme nts GONORRHEA, NAAT (test code = 16264) NEGATIVE CHLAMYDIA, NAAT (test code = 50654) NEGATIVE Dinesh ChenCT/NG, TMA, [id number] 00:00:00* Test Item Value Reference Range Interpretation Comme nts GONORRHEA, NAAT (test code = 64546) NEGATIVE CHLAMYDIA, NAAT (test code = 09374) NEGATIVE [id number] 00:00:00* Test Item Value Reference Range Interpretation Comme nts RPR RESULT (test code = 3501) NON-REACTIVE RPR TITER (test code = 3500) NOT INDIC. TITER CT/NG, TMA, [id number] 00:00:00* Test Item Value Reference Range Interpretation Comme nts GONORRHEA, NAAT (test code = 65902) NEGATIVE CHLAMYDIA, NAAT (test code = 69715) NEGATIVE [id number] 00:00:00* Test Item Value Reference Range Interpretation Comme nts RPR RESULT (test code = 3501) NON-REACTIVE RPR TITER (test code = 3500) NOT INDIC. TITER [id number] 00:00:00* Test Item Value Reference Range Interpretation Comme nts RPR RESULT (test code = 3501) NON-REACTIVE RPR TITER (test code = 3500) NOT INDIC. TITER Dinesh Prince, [id number] 11:23:55SPECIMEN NUMBER: [id number] CULTURE, URINE SPECIMEN NUMBER: [id number] SPECIMEN COMMENT: URINE SOURCE: URINE REPORT STATUS: FINAL ISOLATE NUMBER 1: ORGANISM: 07/08/2022 10-50,000 CFU/ML GRAM NEGATIVE BACILLI IDENTIFICATION: 07/09/2022 ESCHERICHIA COLI E. COLI AMOXICILLIN/CA SENSITIVE<=8/4AMPICILLIN RESISTANT >16CEFAZOLIN SENSITIVE <=2CEFTRIAXONE SENSITIVE <=1CIPROFLOXACIN SENSITIVE <=1LEVOFLOXACIN SENSITIVE <=2NITROFURANTOIN SENSITIVE <=32PIP/TAZOBAC SENSITIVE <=16TETRACYCLINE RESISTANT >8TOBRAMYCIN SENSITIVE <=4TRIMETH/SULFA SENSITIVE <=2/38 NOTE: NUMBERS DISPLAYED REPRESENT MINIMUM INHIBITORY CONCENTRATION (ZIA) WHICH IS EXPRESSED IN MCG/ML.CULTURE, [id number] 00:00:00* Test Item Value Reference Range Interpretation Comme nts CULTURE, URINE (test code = 47193) SPECIMEN NUMBER: [id number] CULTURE, [id number] 00:00:00* Test Item Value Reference Range Interpretation Comme nts CULTURE, URINE (test code = 72254) SPECIMEN NUMBER: [id number] CULTURE, [id number] 00:00:00* Test Item Value Reference Range Interpretation Comme nts CULTURE, URINE (test code = 18623) SPECIMEN NUMBER: [id number] Dinesh Merida, THIRD [id number] 02:03:48* Test Item Value Reference Range Interpretation Comme nts TSH, THIRD GENERATION (test code = 2821) 0.026 UIU/ML 0.400-4.100 L UNLESS OTHERWISE INDICATED, ALL TESTING PERFORMED [facility] [address] [place] [address] [employer] PROFESSOR: FIOR STOCK M.D. CLIA NUMBER [id number] [facility] [place]. [id number] 00:00:00* Test Item Value Reference Range Interpretation Comme nts TSH, THIRD GENERATION (test code = 2821) 0.026 UIU/ML Dinesh [id number] 00:00:00* Test Item Value Reference Range Interpretation Comme nts TSH, THIRD GENERATION (test code = 2821) 0.026 UIU/ML [id number] 00:00:00* Test Item Value Reference Range Interpretation Comme nts TSH, THIRD GENERATION (test code = 2821) 0.026 UIU/ML CULTURE, [id number] 12:07:41SPECIMEN NUMBER: [id number] CULTURE, URINE SPECIMEN NUMBER: [id number] SOURCE: URINE REPORT STATUS: FINAL FINAL REPORT: 06/11/2022 UNABLE TO PERFORM TESTING DUE TO RECEIPT OF IMPROPER SPECIMEN. CHARGESDELETED.CULTURE, [id number] 00:00:00* Test Item Value Reference Range Interpretation Comme nts CULTURE, URINE (test code = 50984) SPECIMEN NUMBER: [id number] Dinesh Vinson AustinCULTURE, [id number] 00:00:00* Test Item Value Reference Range Interpretation Comme nts CULTURE, URINE (test code = 93164) SPECIMEN NUMBER: [id number] CULTURE, [id number] 00:00:00* Test Item Value Reference Range Interpretation Comme nts CULTURE, URINE (test code = 58997) SPECIMEN NUMBER: [id number] VAGINAL PATHOGENS DNA [id number] 13:20:58* Test Item Value Reference Range Interpretation Comme nts YIMI SPECIES (test code = 11620) NEGATIVE NEGATIVE G. VAGINALIS (test code = 57837) POSITIVE NEGATIVE A T. VAGINALIS (test code = 09139) NEGATIVE NEGATIVE UNLESS OTHERWISE INDICATED, ALL TESTING PERFORMED [facility] [address] [place] [address] [employer] PROFESSOR: FIOR STOCK M.D. CLIA NUMBER [id number] [place]. [id number] VAGINAL PATHOGENS DNA [id number] 00:00:00* Test Item Value Reference Range Interpretation Comme nts YIMI SPECIES (test code = 67549) NEGATIVE G. VAGINALIS (test code = 29010) POSITIVE T. VAGINALIS (test code = 40921) NEGATIVE Dinesh ChenVAGINAL PATHOGENS DNA [id number] 00:00:00* Test Item Value Reference Range Interpretation Comme nts YIMI SPECIES (test code = ) NEGATIVE G. VAGINALIS (test code = ) POSITIVE T. VAGINALIS (test code = ) NEGATIVE VAGINAL PATHOGENS DNA [id number] 00:00:00* Test Item Value Reference Range Interpretation Comme nts YIMI SPECIES (test code = ) NEGATIVE G. VAGINALIS (test code = ) POSITIVE T. VAGINALIS (test code = ) NEGATIVE TSH, THIRD [id number] 04:11:12* Test Item Value Reference Range Interpretation Comme nts TSH, THIRD GENERATION (test code = 2821) <0.010 UIU/ML 0.400-4.100 L UNLESS OTHERWISE INDICATED, ALL TESTING PERFORMED [facility] [employer] [employer] [address] [place] [address] [employer] PROFESSOR: FIOR STOCK M.D. CLIA NUMBER [id number] [facility] [place] [place]. [id number] LIPID [id number] 03:05:33* Test Item Value Reference Range Interpretation [...] SPECIMENS. FOR MOREINFORMATION, SEE CLIENT ANNOUNCEMENT AT [email or web address] RISK RATIO LDL/HDL (test code = 2238) 1.86 RATIO <3.22 COMPREHENSIVE METABOLIC [id number] 03:05:33* Test Item Value Reference Range Interpretation Comme nts GLUCOSE (test code = 7) 90 MG/DL 70-99 BUN (test code = 8) 14 MG/DL 6-20 CREATININE (test code = 2214) 0.55 MG/DL 0.60-1.30 L eGFR (2020 CKD-EPI) (test code = 94522) 131 ML/MIN/1.73 >60 CALC BUN/CREAT (test code = 2235) 25 RATIO 6-28 SODIUM (test code = 2231) 141 MEQ/L 133-146 POTASSIUM (test code = 2228) 4.0 MEQ/L 3.5-5.4 CHLORIDE (test code = 2215) 107 MEQ/L 95-107 CARBON DIOXIDE (test code = 2206) 22 MEQ/L 19-31 CALCIUM (test code = 2209) 9.8 MG/DL 8.5-10.5 PROTEIN, TOTAL (test code = 2229) 7.6 G/DL 6.1-8.3 ALBUMIN (test code = [...] as normal/abnormal. ALKALINE PHOSPHATASE (test code = 2203) 92 U/L 40-115 AST (test code = 2218) 20 U/L 9-40 ALT (test code = 2219) 27 U/L 5-40 LIPID [id number] 00:00:00* Test Item Value Reference Range Interpretation Comme nts CHOLESTEROL (test code = 2210) 149 MG/DL TRIGLYCERIDES (test code = 2232) 133 MG/DL HDL CHOLESTEROL (test code = 2220) 44 MG/DL CALC LDL CHOL (test code = 2237) 82 MG/DL RISK RATIO LDL/HDL (test cod e = 2238) 1.86 RATIO Dinesh F AustinCOMPREHENSIVE METABOLIC [id number] 00:00:00* Test Item Value Reference Range Interpretation Comme nts GLUCOSE (test code = 2217) 90 MG/DL BUN (test code = 2208) 14 MG/DL CREATININE (test code = 2214) 0.55 MG/DL eGFR (2020 CKD-EPI) (test code = 80267) 131 ML/MIN/1.73 CALC BUN/CREAT (test code = [...] code = 2219) 27 U/L Dinesh Vinson AustinLIPID [id number] 00:00:00* Test Item Value Reference Range Interpretation Comme nts CHOLESTEROL (test code = 2210) 149 MG/DL TRIGLYCERIDES (test code = 2232) 133 MG/DL HDL CHOLESTEROL (test code = 2220) 44 MG/DL CALC LDL CHOL (test code = 2237) 82 MG/DL RISK RATIO LDL/HDL (test cod e = 2238) 1.86 RATIO COMPREHENSIVE METABOLIC [id number] 00:00:00* Test Item Value Reference Range Interpretation Comme nts GLUCOSE (test code = 2217) 90 MG/DL BUN (test code = 2208) 14 MG/DL CREATININE (test code = 2214) 0.55 MG/DL eGFR (2020 CKD-EPI) (test code = 34540) 131 ML/MIN/1.73 CALC BUN/CREAT (test code = [...] ALT (test code = 2219) 27 U/L [id number] 00:00:00* Test Item Value Reference Range Interpretation Comme nts TSH, THIRD GENERATION (test code = 2821) <0.010 UIU/ML LIPID [id number] 00:00:00* Test Item Value Reference Range Interpretation Comme nts CHOLESTEROL (test code = 2210) 149 MG/DL TRIGLYCERIDES (test code = 2232) 133 MG/DL HDL CHOLESTEROL (test code = 2220) 44 MG/DL CALC LDL CHOL (test code = 2237) 82 MG/DL RISK RATIO LDL/HDL (test cod e = 2238) 1.86 RATIO COMPREHENSIVE METABOLIC [id number] 00:00:00* Test Item Value Reference Range Interpretation Comme nts GLUCOSE (test code = 2217) 90 MG/DL BUN (test code = 2208) 14 MG/DL CREATININE (test code = 2214) 0.55 MG/DL eGFR (2020 CKD-EPI) (test code = 48735) 131 ML/MIN/1.73 CALC BUN/CREAT (test code = [...] ALT (test code = 2219) 27 U/L [id number] 00:00:00* Test Item Value Reference Range Interpretation Comme nts TSH, THIRD GENERATION (test code = 2821) <0.010 UIU/ML [id number] 00:00:00* Test Item Value Reference Range Interpretation Comme nts TSH, THIRD GENERATION (test code = 2821) <0.010 UIU/ML Dinesh Vinson AustinVAGINAL PATHOGENS DNA [id number] 00:00:00* Test Item Value Reference Range Interpretation Comme nts YIMI SPECIES (test code = ) NEGATIVE G. VAGINALIS (test code = 43432) POSITIVE T. VAGINALIS (test code = 05390) NEGATIVE Dinesh ChenVAGINAL PATHOGENS DNA [id number] 00:00:00* Test Item Value Reference Range Interpretation Comme nts YIMI SPECIES (test code = 99621) NEGATIVE G. VAGINALIS (test code = 05859) POSITIVE T. VAGINALIS (test code = 43120) NEGATIVE VAGINAL PATHOGENS DNA [id number] 00:00:00* Test Item Value Reference Range Interpretation Comme nts YIMI SPECIES (test code = ) NEGATIVE G. VAGINALIS (test code = 14370) POSITIVE T. VAGINALIS (test code = 83579) NEGATIVE GC AND CHLAMYDIA, AMPLIFIED, [id number] 00:00:00* Test Item Value Reference Range Interpretation Comme nts GONORRHEA, NAAT (test code = 01440) NEGATIVE CHLAMYDIA, NAAT (test code = 05052) NEGATIVE Dinesh ChenGC AND CHLAMYDIA, AMPLIFIED, [id number] 00:00:00* Test Item Value Reference Range Interpretation Comme nts GONORRHEA, NAAT (test code = 76309) NEGATIVE CHLAMYDIA, NAAT (test code = 04347) NEGATIVE GC AND CHLAMYDIA, AMPLIFIED, [id number] 00:00:00* Test Item Value Reference Range Interpretation Comme nts GONORRHEA, NAAT (test code = 64499) NEGATIVE CHLAMYDIA, NAAT (test code = 81710) NEGATIVE HCG, [id number] 10:11:18* Test Item Value Reference Range Interpretation [...] . . . . . . MIU/ML 2-1ZNVC-IYPKWGEXOL FEMALES . . . . . . . . . . . . MIU/ML <=7 UNLESS OTHERWISE INDICATED, ALL TESTING PERFORMED [facility] [employer] [employer] [address] [place] [address] [employer] PROFESSOR: FIOR STOCK M.D. CLIA NUMBER [id number] [facility] [place]. [id number] HCG, [id number] 00:00:00* Test Item Value Reference Range Interpretation Comme nts HCG, QUANTITATIVE (test code = 2506) <5 MIU/ML Dinesh ChenHCG, [id number] 00:00:00* Test Item Value Reference Range Interpretation Comme nts HCG, QUANTITATIVE (test code = 2506) <5 MIU/ML HCG, [id number] 00:00:00* Test Item Value Reference Range Interpretation Comme nts HCG, QUANTITATIVE (test code = 2506) <5 MIU/ML URINE CULTURE, NO [id number] 00:00:00* Test Item Value Reference Range Interpretation Comme nts URINE CULTURE, NO SENS (test code = 78255) SPECIMEN NUMBER: [id number] URINE CULTURE, NO [id number] 00:00:00* Test Item Value Reference Range Interpretation Comme nts URINE CULTURE, NO SENS (test code = 68780) SPECIMEN NUMBER: [id number] URINE CULTURE, NO [id number] 00:00:00* Test Item Value Reference Range Interpretation Comme nts URINE CULTURE, NO SENS (test code = 95682) SPECIMEN NUMBER: [id number] Dinesh [id number] 00:00:00* Test Item Value Reference Range Interpretation Comme nts RPR RESULT (test code = 3501) NON-REACTIVE RPR TITER (test code = 3500) NOT INDIC. TITER Dinesh ChenACUTE HEPATITIS [id number] 00:00:00* Test Item Value Reference Range Interpretation Comme nts HEPATITIS A IgM (test code = 13587) NON-REACTIVE HEPATITIS B CORE IgM (test c ode = 4644) NON-REACTIVE HEPATITIS B SURF AG (test co de = 2739) NON-REACTIVE HEPATITIS C ANTIBODY (test c ode = 4675) NON-REACTIVE INTERPRETATION HEPATITIS A: (test code = 2552) (NOTE) INTERPRETATION HEPATITIS B: (test code = 41440) (NOTE) INTERPRETATION HEPATITIS C: (test code = 70082) (NOTE) Dinesh [id number] 00:00:00* Test Item Value Reference Range Interpretation Comme nts RPR RESULT (test code = 3501) NON-REACTIVE RPR TITER (test code = 3500) NOT INDIC. TITER ACUTE HEPATITIS [id number] 00:00:00* Test Item Value Reference Range Interpretation Comme nts HEPATITIS A IgM (test code = 84826) NON-REACTIVE HEPATITIS B CORE IgM (test c ode = 4644) NON-REACTIVE HEPATITIS B SURF AG (test co de = 2739) NON-REACTIVE HEPATITIS C ANTIBODY (test c ode = 4675) NON-REACTIVE INTERPRETATION HEPATITIS A: (test code = 2552) (NOTE) INTERPRETATION HEPATITIS B: (test code = 87574) (NOTE) INTERPRETATION HEPATITIS C: (test code = 01628) (NOTE) GC AND CHLAMYDIA, AMPLIFIED, [id number] 00:00:00* Test Item Value Reference Range Interpretation Comme nts GONORRHEA, NAAT (test code = 41385) NEGATIVE CHLAMYDIA, NAAT (test code = 46530) NEGATIVE HIV AB/AG COMBO RFLX [id number] 00:00:00* Test Item Value Reference Range Interpretation Comme nts HIV 1/2 4TH GEN, RFLX CONF ( test code = 3514) NON-REACTIVE VAGINAL PATHOGENS DNA [id number] 00:00:00* Test Item Value Reference Range Interpretation Comme nts YIMI SPECIES (test code = 36514) POSITIVE G. VAGINALIS (test code = 95518) NEGATIVE T. VAGINALIS (test code = 59147) NEGATIVE HCG, [id number] 00:00:00* Test Item Value Reference Range Interpretation Comme nts HCG, QUANTITATIVE (test code = 2506) <5 MIU/ML [id number] 00:00:00* Test Item Value Reference Range Interpretation Comme nts RPR RESULT (test code = 3501) NON-REACTIVE RPR TITER (test code = 3500) NOT INDIC. TITER ACUTE HEPATITIS [id number] 00:00:00* Test Item Value Reference Range Interpretation Comme nts HEPATITIS A IgM (test code = 56136) NON-REACTIVE HEPATITIS B CORE IgM (test c ode = 4644) NON-REACTIVE HEPATITIS B SURF AG (test co de = 2739) NON-REACTIVE HEPATITIS C ANTIBODY (test c ode = 4695) NON-REACTIVE INTERPRETATION HEPATITIS A: (test code = 2552) (NOTE) INTERPRETATION HEPATITIS B: (test code = 03994) (NOTE) INTERPRETATION HEPATITIS C: (test code = 87289) (NOTE) GC AND CHLAMYDIA, AMPLIFIED, [id number] 00:00:00* Test Item Value Reference Range Interpretation Comme nts GONORRHEA, NAAT (test code = 29712) NEGATIVE CHLAMYDIA, NAAT (test code = 17952) NEGATIVE HIV AB/AG COMBO RFLX [id number] 00:00:00* Test Item Value Reference Range Interpretation Comme nts HIV 1/2 4TH GEN, RFLX CONF ( test code = 3514) NON-REACTIVE VAGINAL PATHOGENS DNA [id number] 00:00:00* Test Item Value Reference Range Interpretation Comme nts YIMI SPECIES (test code = 61102) POSITIVE G. VAGINALIS (test code = ) NEGATIVE T. VAGINALIS (test code = 55451) NEGATIVE HCG, [id number] 00:00:00* Test Item Value Reference Range Interpretation Comme nts HCG, QUANTITATIVE (test code = 2506) <5 MIU/ML GC AND CHLAMYDIA, AMPLIFIED, [id number] 00:00:00* Test Item Value Reference Range Interpretation Comme nts GONORRHEA, NAAT (test code = 65015) NEGATIVE CHLAMYDIA, NAAT (test code = 13512) NEGATIVE Dinesh F AustinHIV AB/AG COMBO RFLX [id number] 00:00:00* Test Item Value Reference Range Interpretation Comme nts HIV 1/2 4TH GEN, RFLX CONF ( test code = 3514) NON-REACTIVE Dinesh ChenVAGINAL PATHOGENS DNA [id number] 00:00:00* Test Item Value Reference Range Interpretation Comme nts YIMI SPECIES (test code = 47602) POSITIVE G. VAGINALIS (test code = 34799) NEGATIVE T. VAGINALIS (test code = 92740) NEGATIVE Dinesh ChenHCG, [id number] 00:00:00* Test Item Value Reference Range Interpretation Comme nts HCG, QUANTITATIVE (test code = 2506) <5 MIU/ML Dinesh ChenURINE AND [id number] 04:11:00* Test Item Value Reference Range Interpretation [...] (test code = UA Mucus) Few /LPF [facility] [id number] 03:26:00* Test Item Value Reference Range Interpretation Comme nts Total CK (test code = Total CK) 47 12-191 Troponin-I (test code = Troponin-I) no gt <=0.40 [facility] [id number] 03:26:00* Test Item Value Reference Range Interpretation [...] 0.7-1.6 eGFR (test code = eGFR) [address] [facility] [id number] 03:26:00* Test Item Value Reference Range Interpretation Comme nts S Preg (test code = S Preg) Negative *NA*(08/08/20 10:26 PM) [facility] [id number] 03:26:00* Test Item Value Reference Range Interpretation Comme nts WBC (test code = WBC) 11.3 3.7-10.4 [...] code = Microcyte) 1+ *ABN*(08/08/20 10:26 PM) [facility]2014-06-24 19:20:00* Test Item Value Reference Range Interpretation Comme nts eGFR (test code = eGFR) 124 Calcium [...] AGAP (test code = AGAP) 13.5 10.0-20.0 [id number] 19:20:00* Test Item Value Reference Range Interpretation Comme nts Lymphocytes (test code = Lymphocytes) 10.1 20.0-40.0 [...] WBC (test code = WBC) 10.5 3.7-10.4 [facility] Notes Date/Time Note Provider Source 2025-01-25 08:51:51 Refill has been sent to pharmacy on file. LICENSED OPERATOR Jody Byrd RN [facility] 2025-01-25 08:05:17 Adin Alicia is a 29 year old female Patient is requesting refill for levothyroxine 150 mcg tablet She will be out before her FU appt 04/04/2025 Please advise [facility] 2025-01-17 10:30:50 Closing encounter. Patient viewed mychart. Reviewed urine culture. Sent Amoxicillin for UTI treatment to patient's pharmacy. Written by ADELAIDE Kingston on 01/17/2025 9:29 AM NON LICENSED OPERATOR Seen by patient Adin Alicia on 01/17/2025 9:30 AM LICENSED OPERATOR Martine Barnett RN [facility] 2025-01-17 09:35:03 Adin Alicia is a 29 year old female Called patient, no answer, LVM. Told patient she may refer to MyChart or call us back for any other questions/concerns. LICENSED OPERATOR Martine Barnett RN [facility] 2025-01-17 09:27:42 Reviewed urine culture. Sent Amoxicillin for UTI treatment to patient's pharmacy. [facility] 2024-12-31 13:15:00 Images from the original note were not included. Venipuncture collection performed by clean technique on the right anticubitus. Total of 1 attempts were made. Slight pressure and a bandage/dressing were applied to the site(s). The patient experienced no complications. The following specimens were processed according to instructions and sent to [facility] laboratories per lab order on 12/31/2024 : LT BLUE SST 2 RED 1 LAV PPT DK GREEN (LiHep) DK GREEN (SodH) BECERRA DK BLUE (K2) DK BLUE (S) ACD Blood Culture NIPT/NTD [facility] 2024-12-30 09:44:14 Name and verified, pt is aware of Diflucan sent to her pharmacy and to call back after treatment for evaluation if symptoms persist. Pt verbalized understanding. Yadira Le RN 12/30/2024 9:45 AM LICENSED OPERATOR Yadira Le RN [facility] 2024-12-30 08:52:51 Name and verified, pt states [...] understanding. Yadira Le RN 12/30/2024 9:08 AM [facility] 2024-12-30 08:21:54 Patient has appt tomorrow as follow up from Urgent Care, but wants to discuss med she is currently taking that was prescribed for STD. LICENSED OPERATOR Renu Zamora [facility] 2024-12-28 16:25:47 Spoke to patient to let her know provider prescribed Doxycycline for seven days. Pt verbalized understanding. LICENSED OPERATOR Ilia Graff RN [facility] 2024-12-27 20:24:52 Sent Doxycycline for seven days. [facility] 2024-12-24 08:43:29 Pt scheduled for today. LICENSED OPERATOR Yuli Ruiz [facility] 2024-12-23 17:52:41 Adin Alicia is a 29 year old female Pt has possible yeast infection and requesting the soonest appt available. [phone] (home) LICENSED OPERATOR Mariela Concepcion [facility] 2024-10-11 15:00:00 Images from the original note were not included. Venipuncture collection performed by clean technique on the right anticubitus. Total of 1 attempts were made. Slight pressure and a bandage/dressing were applied to the site(s). The patient experienced no complications. The following specimens were processed according to instructions and sent to [facility] laboratories per lab order on today: LT BLUE SST 1 RED LAV PPT DK GREEN (LiHep) DK GREEN (SodH) BECERRA DK BLUE (K2) DK BLUE (S) ACD Blood Culture NIPT/NTD [facility] 2024-07-19 08:08:06 Images from the original note were not included. 05/20/2024: Edson Bergman NP 06/09/2024 4:55 PM CDT Back to Top Iron is low. Continue iron supplements Component Ref Range & Units 3 mo ago VIT D 25OH 25 - 80 ng/mL 26 Resulting Agency Todd Joyce RN [facility] 2024-07-14 19:41:20 Received record from [facility] -04/21/2024: IUD removed without difficulty documented Laurie Fitzpatrick MD 07/14/2024 7:42 PM [facility] 2024-07-13 10:25:08 Medical records received from [facility], placed on doctor's desk for review. Cordelia Yan [facility] 2024-07-09 10:09:04 Returned patients call, verified name and . Patient wanted to verify if CT Scan will be able to see why there is inflammation in her stomach I advised patient that we would have to view the results once she had the CT to see the cause.Patient verbalized understanding Anabel Garcia MA 07/09/2024 10:15 AM Anabel Garcia MA [facility] 2024-07-09 09:57:44 Adin Alicia is a 29 year old female is returning missed call to clinic,would like to discuss other things Jose Bradley [facility] 2024-07-09 09:53:28 Spoke with patient, patient is wanting to know what was going to be done for her abdomen pain. Informed patient per STACI PosadasP during the time of her exam in office the pain is more pelvic related and not abdomen. Patient was prescribe Flagyl and Diclofenac for pain. Katharina went ahead and placed orders CT abdomen for patient. Patient had no further questions or concerns. Jody Tomas MA [facility] 2024-07-09 09:18:22 Forward to Correct clinic. Deborah Fowler RN [facility] 2024-07-09 08:26:47 Pt is wanting to clarify [...] ultra sound in the pelvic. Marilee in [place]. Sari Diego [facility] 2024-07-05 15:30:00 Addended by: EDSON BERGMAN NP on: 07/09/2024 09:52 AM Modules accepted: Orders [facility] 2024-05-21 00:35:17 Pt given printed and verbal [...] with steady gait, in no apparent distress. [facility] 2024-05-21 00:21:19 Provider going over results with pt. T [facility] 2024-05-20 19:13:26 Pt left the gym and began to have numbness in extremities and chest pain. Sharp pains to right side of chest. Pt hyperventilating in triage. Able to help pt slow breathing down. Pt still complaining of sharp pain in right side of chest and face tingling. AT Sarah Mehta RN [facility] 2024-05-18 10:15:00 Images from the original note were not included. Venipuncture collection performed by clean technique on the right anticubitus. Total of 1 attempts were made. Slight pressure and a bandage/dressing were applied to the site(s). The patient experienced no complications. The following specimens were processed according to instructions and sent to [facility] laboratories per lab order on 05/18/2024 : LT BLUE SST 2 RED LAV 2 PPT DK GREEN (LiHep) DK GREEN (SodH) BECERRA DK BLUE (K2) DK BLUE (S) ACD Blood Culture NIPT/NTD T [facility]2024-05-08 16:12:12 Adin Alicia is a 28 year old female Pt called regarding discussing results and also on what she can do since she does not currently have a PCP. Has appointment scheduled for 04/09/24. Please advise. T Clemente [facility] [id number] 15:00:00 Images from the original note were not included. Venipuncture collection performed by clean technique on the left anticubitus. Total of 1 attempts were made. Slight pressure and a bandage/dressing were applied to the site(s). The patient experienced no complications. The following specimens were processed according to instructions and sent to [facility] laboratories per lab order on 04/05/2024 : LT BLUE SST 2 RED LAV 1 PPT DK GREEN (LiHep) DK GREEN (SodH) BECERRA DK BLUE (K2) DK BLUE (S) ACD Blood Culture NIPT/NTD T [facility] [id number] 16:00:00 Images from the original note were not included. Venipuncture collection performed by clean technique on the right anticubitus. Total of 1 attempts were made. Slight pressure and a bandage/dressing were applied to the site(s). The patient experienced no complications. The following specimens were processed according to instructions and sent to [facility] laboratories per lab order on 03/19/2024: LT BLUE SST 1 RED LAV PPT DK GREEN (LiHep) DK GREEN (SodH) BECERRA DK BLUE (K2) DK BLUE (S) ACD Blood Culture NIPT/NTD T [facility] [id number] 16:53:55 My chart message sent Jordy Sena MD [employer] Supervisor Division of Endocrinology T [facility] [id number] 08:13:17 Patient has an appointment with Dr. Sena 04/05/24. Can labs be done at that time or does patient need to come in sooner? Rita Allison [id number] 13:13:56 Adin Alicia is a 28 year old female Pt is calling requesting to come in for labs to make sure her thyroid levels are where they're supposed to be and that she isn't taking too much medication. Please give the pt a call. 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 FINDINGS: A right posterior [...] ventriculostomy catheter is intact. Otherwise unremarkable examination. [facility] [id number] 22:41:19* Brain wo contrast CT 08/08/2020 10:20 [...] decompressed as described above. Otherwise unremarkable examination. [place]
[2025-04-19 22:04] LABS: ALT/SGPT 26 U/L (13-56); AST/SGOT 15 U/L (15-37); Albumin 3.7 g/dL (3.4-5.0); Albumin/Globulin Ratio 0.8 (1.1-1.8); Alkaline Phosphatase 98 U/L (45-117); Anion Gap 8.5 mEq/L (5.0-15.0); BUN Blood Urea Nitrogen 10 mg/dL (7-18); Bicarbonate 26 mEq/L (21-32); Bilirubin Total 0.6 mg/dL (0.2-1.0); Globulin 4.4 g/dL (2.3-3.5); Glomerular Filtration Rate 99 ml/min (=/>90); Glucose Level 101 mg/dL (74-106); Lipase 37 U/L (13-75); Potassium 3.5 mEq/L (3.5-5.1); Protein, Total 8.1 g/dL (6.4-8.2); Sodium Level 141 mEq/L (136-145)
[2025-04-19 22:07] LABS: HCG, Quantitative < 1 mIU/mL (1-3)
[2025-04-19] MEDS ORDERED: METHYLPREDNISOLONE 125 MG INJ ONE (22:17)
[2025-04-19] MEDS ORDERED: DIPHENHYDRAMINE 50 MG/ML VIAL ONE (22:22)
[2025-04-19 22:30] LABS: Sqamous Epithelial None Seen /HPF (None Seen); Urine Bacteria None Seen /HPF (<20); Urine Bilirubin NEGATIVE (Negative); Urine Blood 2+ (Negative); Urine Clarity Clear (Clear); Urine Color Light-Yellow (Yellow); Urine Glucose NEGATIVE (Negative); Urine Ketones NEGATIVE (Negative); Urine Micro Reflex YN NO BILL MICROSCOPIC; Urine Mucus Slight /HPF (None Seen); Urine Nitrite NEGATIVE (Negative); Urine Protein NEGATIVE (Negative); Urine Urobilinogen Normal (Normal); Urine WBC <5 /HPF (<5); Urine Yeast (Budding) Trace /HPF (None Seen)
--- NOTE | 2025-04-19 22:35 | RAD REPORT ---
EXAMINATION: US Transvaginal Study Probe CLINICAL INDICATION: Female 29 years old.[facility] MAIN unknown profuse vaginal bleed Bed Name: 3 TECHNIQUE: Real-time ultrasonography of the pelvis was performed transvaginally. Color and spectral D oppler evaluation of the ovaries was performed. COMPARISON: No prior exam. FINDINGS: UTERUS AND CERVIX: The uterus measures 8.3 cm in length. The uterus is normal. No masses seen The end ometrium is normal, 0.4 cm in thickness. RIGHT OVARY: Not visualized due to overshadowing bowel gas. LEFT OVARY: Normal The left ovary measures 3.2 x 2.2 x 2.4 cm. Normal color and spectral Doppler evaluation of the left ovary.. FREE FLUID: Mild fluid in the cul-de-sac.. IMPRESSION: No suspicious findings, although right ovary was not well-visualized. Overshadowing bowel gas, which limits evaluation. Mild fluid within the cul-de-sac. Patient has known peritoneal catheter tubing in place..
--- NOTE | 2025-04-20 03:11 | EDPHYS ---
Physician Documentation [facility] Name: Carmelina Alicia Age: 29 yrs Sex: Female : 1995 Arrival Date: 04/19/2025 Time: 21:23 Bed 3 Private MD: ED Physician Mundo Mendoza HPI: 04/19 21:30 This 29 yrs old Female presents to ER via Unassigned with complaints of sp4 Abdominal Pain. 04/20 20:28 29-year-old female presents with acute moderate to severe intermittent pelvic pain sp4 associated with vaginal bleeding. Patient was here yesterday for the same complaint.. 20:42 Patient on arrival is screaming and agitated.. 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 - Infectious Disease History:: Denies. - Social history:: Smoking status: Patient denies any tobacco usage or history of. - Family history:: not pertinent. ROS: 04/20 20:30 Constitutional: Negative for fever, chills, and weight loss, sp4 All other systems are negative, 20:42 : Positive for Positive moderate to severe pelvic pain which is intermittent, sp4 positive for vaginal bleeding, Exam: 20:42 Constitutional: This is a well developed, well nourished patient who is awake, alert, sp4 and in no acute distress. Head/Face: Normocephalic, atraumatic. Eyes: Pupils equal round and reactive to light, extra-ocular motions intact. Lids and lashes normal. Conjunctiva and sclera are not injected. Cornea within normal limits. Periorbital areas with no swelling, redness, or edema. ENT: Nares patent. No nasal discharge, no septal abnormalities noted. Tympanic membranes are normal and external auditory canals are clear. Oropharynx with no redness, swelling, or masses, exudates, or evidence of obstruction, uvula midline. Mucous membranes moist. Neck: Trachea midline, no thyromegaly or masses palpated, and no cervical lymphadenopathy. Supple, full range of motion without nuchal rigidity, or vertebral point tenderness. Chest/axilla: Normal chest wall appearance and motion. Nontender with no deformity. No lesions are appreciated. Cardiovascular: Regular rate and rhythm with a normal S1 and S2. No gallops, murmurs, or rubs. Normal PMI, no JVD. No pulse deficits. Respiratory: Lungs have equal breath sounds bilaterally, clear to auscultation and percussion. No rales, rhonchi or wheezes noted. No increased work of breathing, no retractions or nasal flaring. Abdomen/GI: Soft, with normal bowel sounds. No distension or tympany. No guarding or rebound. No evidence of tenderness throughout. Back: No spinal tenderness. No costovertebral tenderness. Pelvic Exam: Normal external genitalia. Speculum exam with closed cervical os, no discharge , relatively small amount of dark red blood in the vaginal vault, no active vaginal bleeding out of the cervical os. No signs of purulence, no ulcers or lesions. Skin: Warm, dry with normal turgor. Normal color with no rashes, no lesions, and no evidence of cellulitis. MS/ Extremity: Pulses equal, no cyanosis. Neurovascular intact. Full, normal range of motion. Neuro: Awake and alert, GCS 15, oriented to person, place, time, and situation. Cranial nerves II-XII grossly intact. Motor strength 5/5 in all extremities. Sensory grossly intact. Psych: Awake, alert, with orientation to person, place and time. Behavior, mood, and affect are within normal limits 20:42 : Female rhinologist RN present for pelvic examination., Vital Signs: 04/19 21:27 BP 136 / 102 LA Supine (auto/reg); Pulse 90; Temp 97.6(O); Pulse Ox 100% on R/A; Weight sa1 90.26 kg (R); Height 5 ft. 5 in. (R); 22:29 BP 126 / 90; Pulse 89; Resp 15; Pulse Ox 100% on 2 lpm NC; kd3 23:14 BP 116 / 65; Pulse 57; Resp 16; Pulse Ox 100% on 2 lpm NC; kd3 04/20 00:21 BP 125 / 70; Pulse 57; Resp 19; Pulse Ox 100% on 2 lpm NC; kd3 01:11 BP 118 / 67; Pulse 65; Resp 16; Pulse Ox 100% on R/A; kd3 01:35 BP 107 / 65; Pulse 56; Resp 18; Pulse Ox 100% on 2 lpm NC; kd3 02:37 BP 111 / 58; Pulse 72; Resp 16; Pulse Ox 98% on R/A; kd3 03:10 BP 118 / 66; Pulse 82; Resp 19; Pulse Ox 99% on R/A; kd3 04/19 21:27 Body Mass Index 33.11 (90.26 kg, 165.1 cm) sa1 [place] Coma Score: 20:42 Eye Response: spontaneous(4). Motor Response: obeys commands(6). Verbal Response: sp4 oriented(5). Total: 15. MDM: 04/19 21:43 Medical Screening Exam initiated sp4 04/20 00:09 ED course: EXAMINATION: US Transvaginal Study Probe CLINICAL INDICATION: Female 29 sp4 years old.[facility] MAIN unknown profuse vaginal bleed Bed Name: 3 TECHNIQUE: Real-time ultrasonography of the pelvis was performed transvaginally. Color and spectral Doppler evaluation of the ovaries was performed. COMPARISON: No prior exam. FINDINGS: UTERUS AND CERVIX: The uterus measures 8.3 cm in length. The uterus is normal. No masses seen The endometrium is normal, 0.4 cm in thickness. RIGHT OVARY: Not visualized due to overshadowing bowel gas. LEFT OVARY: Normal The left ovary measures 3.2 x 2.2 x 2.4 cm. Normal color and spectral Doppler evaluation of the left ovary.. FREE FLUID: Mild fluid in the cul-de-sac.. IMPRESSION: No suspicious findings, although right ovary was not well-visualized. Overshadowing bowel gas, which limits evaluation. Mild fluid within the cul-de-sac. Patient has known peritoneal catheter tubing in place.. Reported By: Artemio Da Silva . 02:58 ED course: CLINICAL HISTORY: 29 years Female; ABD PAIN; IV ONLYBed Name: 5 TECHNIQUE: sp4 CT of the abdomen and pelvis [with] intravenous contrast. All CT scans at this facility use dose modulation, iterative reconstruction, and/or weight based dosing when appropriate to reduce radiation dose to as low as reasonably achievable. COMPARISON: None. FINDINGS: Exam limited due to motion. Lower thorax: Lung bases are clear Abdomen: Stomach:Within normal limits Liver:No focal lesions. No intrahepatic ductal distention. Gallbladder:Nondistended Pancreas:Within normal limits Spleen:Calcified granulomas noted. Right kidney:No hydronephrosis. No focal lesion. Contrast in the collecting system. Left kidney:No hydronephrosis. No focal lesion. Contrast in the of collecting system. Adrenal glands:Within normal limits Vascular structures:Within normal limits Nodes:No lymphadenopathy by size criteria Pelvis: Small bowel:No significant distention. Appendix:Within normal limits Colon:No distention or acute pericolonic edema. Moderate stool burden. Peritoneum: No free air. Small volume of free fluid in the pelvis. Shunt catheter tubing tip noted in the pelvis. Bones: No acute bone findings. Bladder: Unremarkable. Reproductive organs: No acute findings. IMPRESSION: 1. Exam limited due to motion. 2. No acute abdominopelvic findings. 3. Moderate stool burden. 4. Small volume of free fluid in the pelvis. Electronically signed by: Jas Rutherford MD 04/19/2025 02:27 AM. 20:42 Differential diagnosis: abdon infection, cervicitis, dysfunctional uterine bleeding, sp4 dysmenorrhea, endometriosis, menometrorrhagia. Data reviewed: vital signs, nurses notes, lab test result(s), radiologic studies, ultrasound. Consideration of Admission/Observation Escalation of care including admission/observation considered. ED course: CT abdomen pelvis yesterday revealed no acute abdominal pelvic findings. Moderate constipation. Small free fluid in the pelvis. Ultrasound today has revealed no suspicious findings, however right ovary not well-visualized. Mild fluid within the cul-de-sac. Patient does have shunt catheter tubing present in the pelvis. This is incidental finding. . 04/19 21:30 Order name: HCG-Quantitative; Complete Time: 00:08 [facility] 04/19 21:30 Order name: CBC with Diff; Complete Time: 00:08 [facility] 04/19 21:30 Order name: CMP; Complete Time: 00:08 4 04/19 21:30 Order name: Lipase; Complete Time: 00:08 [facility] 04/19 21:31 Order name: Type And Screen; Complete Time: 00:08 4 04/19 21:31 Order name: PT-INR; Complete Time: 00:08 sp4 04/19 21:32 Order name: CRP; Complete Time: 00:08 sp4 04/19 21:32 Order name: UA W/ Microscopic; Complete Time: 00:08 sp4 04/19 21:55 Order name: Transvaginal Study Probe; Complete Time: 00:08 EDMS 04/19 21:30 Order name: IV Saline Lock; Complete Time: 21:37 sp4 04/19 21:30 Order name: Labs collected and sent; Complete Time: 21:56 sp4 04/19 21:31 Order name: Pelvic Exam Setup; Complete Time: 03:10 sp4 Administered Medications: 04/19 21:45 Not Given (Patient Refused; states she is allergic ): fentanyl (pf)100 mcg IVP once kd3 21:55 Drug: NS 0.9% IV 1000 ml IV at 1000 ml once; to be given as a bolus over 60 minutes kd3 Route: IV; Rate: 1000 ml; Site: left antecubital; 21:56 Drug: Geodon IM 20 mg IM once Route: IM; Site: left deltoid; kd3 21:56 Drug: Dicyclomine IM 20 mg IM once Route: IM; Site: right deltoid; kd3 21:56 Drug: Ondansetron IVP 4 mg IVP once; over 2 minutes Route: IVP; Site: left antecubital; kd3 22:28 Drug: diphenhydrAMINE IVP 25 mg IVP once Route: IVP; Site: left antecubital; kd3 22:29 Drug: tranexamic acid IV 1000 mg IV at calculated rate once; IV once over 20 minutes kd3 Route: IV; Rate: calculated rate; Site: left antecubital; 22:29 Drug: MethylPrednisoLONE IVP 125 mg IVP once Route: IVP; Site: left antecubital; kd3 Disposition: 04/20 20:42 Chart complete. sp4 Disposition Summary: 04/20/25 03:11 Discharge Ordered Notes: We recommend bed rest for 3 days Location: Home sp4 Problem: new sp4 Symptoms: have improved sp4 Condition: Stable sp4 Diagnosis - Pelvic and perineal pain sp4 - Menorrhagia, metrorrhagia sp4 Followup: sp4 - With: Private Physician - When: 7 - 10 days - Reason: Recheck today's complaints Discharge Instructions: - Discharge Summary Sheet sp4 - Dysmenorrhea, [id number] sp4 Forms: - Work release form sp4 - Patient Portal Instructions sp4 Prescriptions: - Tramadol 50 mg Oral tablet - take 1 tablet ORAL route every 8 hours as needed; 30 tablet; Refills: 0, sp4 Product Selection Permitted - promethazine 25 mg Oral tablet - take 1 tablet ORAL route every 8 hours As needed PRN pain; 30 tablet; Refills: sp4 0, Product Selection Permitted - dicyclomine 20 mg Oral tablet - take 1 tablet ORAL route every 8 hours PRN pain; 30 tablet; Refills: 0, Product sp4 Selection Permitted Signatures: Dispatcher [employer] EDNilam Anne RN RN kd3 Mundo Mendoza MD MD sp4 Lorrie De Paz RN RN km10 Corrections: (The following items were deleted from the chart) 04/19 21:55 21:32 Pelvis Complete+US.RAD.BRZ ordered. EDMS EDMS 22:05 21:32 [place] ordered. sp4 kd3
--- NOTE | 2025-04-20 03:11 | ER ---
Nurse's Notes [facility] Name: Carmelina Alicia Age: 29 yrs Sex: Female : 1995 Arrival Date: 04/19/2025 Time: 21:23 Bed 3 Private MD: Diagnosis: Pelvic and perineal pain;Menorrhagia, metrorrhagia Presentation: 04/19 21:26 Chief complaint: Patient states: uterine cramping x 4-5 days since menstruation km10 started. Seen in ER yesterday and OBGYN today. Here in ER for continued symptoms. Coronavirus screen: Client denies travel out of the [place] in the last 14 days. At this time, the client does not indicate any symptoms associated with coronavirus-19. Ebola Screen: No symptoms or risks identified at this time. Initial Sepsis Screen: Does the patient meet any 2 criteria? No. Patient's initial sepsis screen is negative. Does the patient have a suspected source of infection? No. Patient's initial sepsis screen is negative. Risk Assessment: Do you want to hurt yourself or someone else? Patient reports no desire to harm self or others. Onset of symptoms was April 14, 2025. Care prior to arrival: Medication(s) given: TXA at OBGYN. 21:26 Method Of Arrival: EMS: [facility] km10 21:26 Acuity: ENIO 3 km10 Triage Assessment: 21:30 General: Appears Behavior is anxious, audibly shouting with IV start and intermittently km10 between clear sentence. Pain: Complains of pain in suprapubic area Pain currently is 10 out of 10 on a pain scale. Quality of pain is described as crampy, Pain began 4-5 days ago Is intermittent, Noted to be moaning, shouting. Neuro: Level of Consciousness is awake, alert, Oriented to person, place, time, situation. Respiratory: Airway is patent Respiratory effort is even, unlabored. GI: Abdomen is round Reports lower abdominal pain, cramping. : Denies cramping vaginal bleeding. 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 - Infectious Disease History:: Denies. - Social history:: Smoking status: Patient denies any tobacco usage or history of. - Family history:: not pertinent. Screenin:40 [facility] ED Fall Risk Assessment (Adult) History of falling in the last 3 months, 10 including since admission No falls in past 3 months (0 pts) Confusion or Disorientation No (0 pts) Intoxicated or Sedated No (0 pts) Impaired Gait No (0 pts) Mobility Assist Device Used No (0 pt) Altered Elimination No (0 pt) Score/Fall Risk Level. Abuse screen: Denies threats or abuse. Denies injuries from another. Nutritional screening: No deficits noted. Tuberculosis screening: No symptoms or risk factors identified. Assessment: 21:30 General: Appears distressed, uncomfortable, Behavior is cooperative, agitated, anxious, kd3 crying, restless, Pt is seen in the stretcher, PT is loudly crying/screaming due to sever abdominal pain. PT's allergies from the chart noted. . 21:30 Neuro: Level of Consciousness is awake, alert, obeys commands, Oriented to person, kd3 place, time, situation. Respiratory: Airway is patent Trachea midline Respiratory effort is even, unlabored, Respiratory pattern is regular, symmetrical. 21:45 General: Pt refuses fentanyl and states she is allergic and her throat closes . kd3 22:15 General: Pt called for this nurse and states she does not feel well and her throat is kd3 closing. Pt is 100% on room air, heart rate is 74, PT is speaking in full and complete sentences without pausing. Pt airway is patent and lung sounds are clear. Attempts for therapeutic communication failed. Provider notified. Pt placed on 2 liters nasal canula for comfort. . 04/20 00:19 General: Pt is in view from the nurses station. PT is resting in the stretcher, kd3 respirations are even and unlabored, skin is warm and dry, pt VSS. . 00:20 GI: Bowel sounds present X 4 quads. Abd is soft X 4 quads. kd3 01:42 General: Appears in no apparent distress. Behavior is calm, cooperative. General: Pt is kd3 more awake. Nasal canula removed. . Neuro: Level of Consciousness is awake, alert, obeys commands, Oriented to person, place, time, situation. Respiratory: Airway is patent Trachea midline Respiratory effort is even, unlabored, Respiratory pattern is regular, symmetrical. 03:10 General: this RN assisted the provider with pelvic exam. PT is awake, alert and kd3 oriented. Pt is advised not to drive home due to medication administration in the ER. pt verbalizes understanding. Pt plans to call someone for a ride home. . Vital Signs: 04/19 21:27 BP 136 / 102 LA Supine (auto/reg); Pulse 90; Temp 97.6(O); Pulse Ox 100% on R/A; Weight sa1 90.26 kg (R); Height 5 ft. 5 in. (R); 22:29 BP 126 / 90; Pulse 89; Resp 15; Pulse Ox 100% on 2 lpm NC; kd3 23:14 BP 116 / 65; Pulse 57; Resp 16; Pulse Ox 100% on 2 lpm NC; kd3 04/20 00:21 BP 125 / 70; Pulse 57; Resp 19; Pulse Ox 100% on 2 lpm NC; kd3 01:11 BP 118 / 67; Pulse 65; Resp 16; Pulse Ox 100% on R/A; kd3 01:35 BP 107 / 65; Pulse 56; Resp 18; Pulse Ox 100% on 2 lpm NC; kd3 02:37 BP 111 / 58; Pulse 72; Resp 16; Pulse Ox 98% on R/A; kd3 03:10 BP 118 / 66; Pulse 82; Resp 19; Pulse Ox 99% on R/A; kd3 04/19 21:27 Body Mass Index 33.11 (90.26 kg, 165.1 cm) sa1 [place] Coma Score: 20:42 Eye Response: spontaneous(4). Motor Response: obeys commands(6). Verbal Response: sp4 oriented(5). Total: 15. ED Course: 04/19 21:25 Patient arrived in ED. vk 21:26 Nilam Hua, JOON is Primary Nurse. kd3 21:29 Mundo Mendoza MD is Attending Physician. sp4 21:30 Triage completed. km10 21:37 Inserted saline lock: 20 gauge in left antecubital area, using aseptic technique. Blood kd3 collected. Flushed with 10 mL NS. 21:39 Arm band placed on right wrist. km10 21:40 Patient has correct armband on for positive identification. Bed in low position. Call km10 light in reach. Side rails up X2. Provided Education on: plan of care. Door closed. Noise minimized. Warm blanket given. Pillow given. Verbal reassurance given. 21:41 Type And Screen Sent. km10 21:41 PT-INR Sent. km10 21:41 Lipase Sent. km10 21:41 CMP Sent. km10 21:41 CBC with Diff Sent. km10 21:55 Transvaginal Study Probe In Process Unspecified. EDMS 22:29 CRP Sent. kd3 22:29 UA W/ Microscopic Sent. kd3 04/20 03:11 Assist provider with pelvic exam: Set up pelvic tray. Performed by Mundo Mendoza MD kd3 Patient tolerated well. 03:23 IV discontinued, intact, bleeding controlled, No redness/swelling at site. Pressure kd3 dressing applied. Administered Medications: 04/19 21:45 Not Given (Patient Refused; states she is allergic ): fentanyl (pf)100 mcg IVP once kd3 21:55 Drug: NS 0.9% IV 1000 ml IV at 1000 ml once; to be given as a bolus over 60 minutes kd3 Route: IV; Rate: 1000 ml; Site: left antecubital; 21:56 Drug: Geodon IM 20 mg IM once Route: IM; Site: left deltoid; kd3 21:56 Drug: Dicyclomine IM 20 mg IM once Route: IM; Site: right deltoid; kd3 21:56 Drug: Ondansetron IVP 4 mg IVP once; over 2 minutes Route: IVP; Site: left antecubital; kd3 22:28 Drug: diphenhydrAMINE IVP 25 mg IVP once Route: IVP; Site: left antecubital; kd3 22:29 Drug: tranexamic acid IV 1000 mg IV at calculated rate once; IV once over 20 minutes kd3 Route: IV; Rate: calculated rate; Site: left antecubital; 22:29 Drug: MethylPrednisoLONE IVP 125 mg IVP once Route: IVP; Site: left antecubital; kd3 Medication: 04/20 00:20 VIS not applicable for this client. kd3 Outcome: 03:11 Discharge ordered by . sp4 03:23 Discharged to home ambulatory, kd3 03:23 Condition: stable 03:23 Discharge instructions given to patient, Instructed on discharge instructions, follow up and referral plans. medication usage, Demonstrated understanding of instructions, follow-up care, medications, Prescriptions given X 3, 03:23 Patient left the ED. kd3 Signatures: Dispatcher [employer] EDVT Nilam Hua RN RN kd3 Mundo Mendoza MD MD sp4 Verónica Lee Sultan 1 Lorrie De Paz RN RN km10 Corrections: (The following items were deleted from the chart) 00:22 04/19 23:14 BP 116 / 65; Pulse 57bpm; Resp 16bpm; Pulse Ox 100% RA; kd3 kd3 04/20 00:22 00:21 BP 125 / 70; Pulse 57bpm; Resp 19bpm; Pulse Ox 100% RA; kd3 kd3 00:22 04/19 22:15 General: Pt called for this nurse and states she does not feel well and her kd3 throat is closing. Pt is 100% on room air, heart rate is 74, PT is speaking in full and complete sentences without pausing. Pt airway is patent and lung sounds are clear. Attempts for therapeutic communication failed. Provider notified. . kd3
[2025-04-20 03:40] VITALS: TEMP 97.6
[2025-04-20 03:51] VITALS: BP 118/66; O2SAT 99
== END 2025-04-20 03:23 | disposition home or self-care (01) ==
LOC: ER 21:23
DX: R10.2 Pelvic and perineal pain (principal); N92.0 Excessive and frequent menstruation with regular cycle
CPT/HCPCS: 36415; 76830; 80053; 81001; 83690; 84702; 85025; 85610; 86140; 86850; 86900; 86901; J0500; J1200; J2405; J2919; J3010; J3486; J7030